=== PATIENT | male | born 1955 | race African-American/Black ===

== ENCOUNTER 2023-08-10 07:48 | Outpatient (OUT) | payer OTHER, MEDICARE, SELFPAY ==
--- NOTE | 2023-08-10 07:50 | CT_ITS ---
[address] [address] Patient Name: MAXIMINO CLARKE MRN: [id number] date: 1955 Sex: M Assigned Patient Location: CT Current Patient Location: CT Accession/Order Number: [id number] Exam Date: 08/10/2023 08:02 Report Date: 08/10/2023 16:32 At the request of: RUBI RIDLEY Procedure: CT chest high res EXAM: CT chest high res HISTORY: [facility] J67.2 COMPARISON: 11/12/2020 TECHNIQUE: Axial CT imaging was performed through the chest without intravenous contrast. Multiplanar reformats were performed. Dose reduction techniques were achieved by using automated exposure control and/or adjustment of mA and/or kV according to patient size and/or use of iterative reconstruction technique. FINDINGS: Lungs: There is bilateral centrilobular emphysema. No honeycombing, diffuse groundglass opacity, centrilobular pulmonary nodules or focal lytic changes to suggest interstitial lung disease. No suspicious pulmonary nodule. No consolidation, pneumothorax, or effusion. Airways: Normal. Mediastinum: No adenopathy. Aorta: No aneurysm. Cardiac: Normal size. No pericardial effusion. Pulmonary vasculature: Normal morphology. Bones: No acute bony abnormality. Axilla: No adenopathy. Thyroid gland: No abnormality demonstrated on provided imaging. Soft tissues: Unremarkable. Upper abdomen: Cholelithiasis. Other findings: None. CT/CT chest high res IMPRESSION: Bilateral centrilobular emphysema. No suspicious pulmonary nodule. No CT evidence of interstitial lung disease. Cholelithiasis. Electronically authenticated by: DRE RAMOS Date: 08/10/2023 16:32
[2023-08-10 08:17] LABS: Hemoglobin 13.8 g/dL (14.0-18.0)
[2023-08-10] MEDS: ALBUTEROL SULFATE 2.5 MG/3 ML VIAL NEB IH (09:12)
--- NOTE | 2023-08-10 09:15 | RT_ITS ---
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 Findings were considered accurate and reproducible. Both pre- and post-bronchodilator values utilized for spirometry. Due to software limitations, no prior studies (if performed previously) are currently available for comparison. Spirometry (based on pre-bronchodilator values): -FEV1/FVC: Low normal @ 73% -FEV1: Normal @ 92% -FVC: Normal @ 92% -There is no significant bronchodilator response. Lung volumes by plethysmography (based on pre-bronchodilator values): -RV: Normal @ 87% -TLC: Normal @ 85% Diffusion capacity: -DLCO: Very severe reduction @ 35% when corrected for Hb 13.8g/dL Flow-volume loop: -Normal shape Impressions: - Normal spirometry and lung volumes with an isolated very severe diffusion impairment. This pattern can be seen in, but not restricted to, cardiopulmonary vascular disorders and interstitial lung disease. Unable to compare with prior PFT since software was upgraded. Clinical correlation required. Electronically Signed On 08-15-2023 16:13:21 EST by Gaston Barlow
== END 2023-08-10 07:49 | disposition home or self-care (01) ==
LOC: CT 07:48
PROVIDERS: PCP Internal Medicine; Visit Provider Internal Medicine
DX: J67.2 Bird fancier's lung (principal); J43.2 Centrilobular emphysema
CPT/HCPCS: 36415; 71250; 85018; 94060; 94726; 94729

== ENCOUNTER 2023-10-16 08:50 | Outpatient (OUT) | payer OTHER, MEDICARE, SELFPAY ==
--- OUTSIDE RECORDS SUMMARY | 2023-10-16 08:53 | XMS_ITS | CCD ---
Author Name Unknown Address [address] [place] [address] [address] [place] [id number] Organization [facility] Care Team Providers [employer] Name Role Phone JOHANNA BLANDON Primary Care Physician [phone] BLANDON ., DR JOHANNA Reyes Primary Care Unavailable NILL ., DR DEVI Admitting Unavailable NILL ., DR DEVI Attending Unavailable NILL ., DR DEVI Consulting Unavailable DAVIN FRAGA Consulting Unavailable LISANDRA TUTTLE Consulting Unavailable BLANDON ., DR JOHANNA Reyes Admitting Unavailable BLANDON ., DR JOHANNA Reyes Attending Unavailable BLANDON ., DR JOHANNA Reyes Consulting Unavailable BLANDON ., DR JOHANNA Reyes Primary Care Unavailable BLANDON ., DR JOHANNA Reyes Admitting Unavailable BLANDON ., DR JOHANNA Reyes Attending Unavailable BLANDON ., DR JOHANNA Reyes Consulting Unavailable BLANDON ., DR JOHANNA Reyes Primary Care Unavailable JOHANNA BLANDON Primary Care Physician Mary Ellen Hebert Primary Care Physician Mary Ellen Hebert Attending Unavailable Jim RUTHERFORD Attending Unavailable EmileeMary Ellen gibson Attending Unavailable Mary Ellen Hebert Admitting Unavailable JOHANNA BLANDON Referring Unavailable NILLGrzegorz Attending Unavailable NILLGrzegorz Attending Unavailable NILL, Grzegorz More Attending Unavailable NILL, Grzegorz More Attending Unavailable EmileeMary Ellen Attending Unavailable EmileeMary Ellen Attending Unavailable KAT VASQUEZ Attending Unavailable Allergies Allergy Classification Reported Allergen(s) Allergy Type Date of Onset Reaction(s) Facility (1 source) No Known Medication Allergies; 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: [No Known Medication Allergies] Propensity to adverse reactions (disorder) [facility] Repository Medications Current Medications Medication Drug Class(es) Dates Sig (Normalized) Sig (Original) albuterol 0.83 mg/ml inhalation solution (1 source) beta2-Adrenergic Agonist Start: 07-14-2023 take 2.5 mg by inhalation every six hours albuterol 0.083% Inh Anne 3 mL 2.5 mg, 3 mL, NEB, q6hr, Refill(s) 0 Start Date: 07/14/23 Status: Ordered Aspirin (3 sources) Platelet Aggregation Inhibitor, Nonsteroidal Anti-inflammatory Drug Start: 04-25-2019 aspirin 81 mg, Chewed, Daily Start Date: 04/25/19 Status: Ordered 60 actuat budesonide 0.09 mg/actuat dry powder inhaler (1 source) Corticosteroid Start: 07-14-2023 Pulmicort Flexhaler 90 mcg/inh inhalation powder 1 inh, Inhalation, BID, 1 EA, Refill(s) 11, [facility] #[id number], 172.7, cm, 07/14/23 13:11:00 EDT, Height/Length Dosing, 92, kg, 07/14/23 13:11:00 EDT, Weight Dosing Start Date: 07/14/23 Status: Ordered D3 1000 intl units (25 mcg) oral tablet (1 source) Start: 07-14-2023 take 1 tablet by mouth once daily D3 1000 intl units (25 mcg) oral tablet 25 mcg = 1 tab(s), Oral, Daily, Refills(s) 0 Start Date: 07/14/23 Status: Ordered hydroCHLOROthiazide 12.5 mg / losartan potassium 100 mg oral tablet (3 sources) Thiazide Diuretic, Angiotensin 2 Receptor Gurpreet Start: 07-12-2023 End: 08-11-2023 hydrochlorothia zide-losartan 12.5 mg-100 mg oral tablet 1 tab(s), Oral, Daily for 30 day(s), 30 tab(s), Refill(s) 0, [facility] #[id number], 172.7, cm, 11/22/22 15:44:00 EST, Height/Length Dosing, 92.5, kg, 11/22/22 15:44:00 EST, Weight Dosing Start Date: 07/12/23 Stop Date: 08/11/23 Status: Ordered Start: 11-03-2022 take 1 tablet by oma th once daily hydrochlorothiazide-losartan 12.5 mg-100 mg oral tablet 1 tab(s), Oral, Daily, Refill(s) 0 Start Date: 11/03/22 Status: Ordered 24 hr metoprolol succinate 25 mg extended release oral tablet (2 sources) beta-Adrenergic Gurpreet Start: 11-03-2022 take 1 tablet by mouth once daily metoprolol 25 mg ER Tab 25 mg = 1 tab(s), Oral, Daily, Refills(s) 0 Start Date: 11/03/22 Status: Ordered pravastatin sodium 20 mg oral tablet (3 sources) HMG-CoA Reductase Inhibitor Start: 04-25-2019 take 20 mg by mouth once daily pravastatin 20 mg, Oral, Daily Start Date: 04/25/19 Status: Ordered Completed/Discontinued Medications Medication Drug Class(es) Dates Sig (Normalized) Sig (Original) predniSONE 10 mg oral tablet (1 source) Start: 07-14-2023 predniSONE 10 mg Tab 90 EA, 0 Refill(s), TAKE 1 TABLET BY MOUTH EVERY MORNING, Refills(s) 0 Start Date: 07/14/23 Status: Ordered Problems Active Problems Problem Classification Problem Date Documented Da te Episodic/Chronic Biliary tract disease (3 sources) Gallstone 04-25-2019 Episodic Chronic obstructive pulmonary disease and bronchiectasis (7 sources) Chronic obstructive lung disease; 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: [Pulmonary emphysema] Onset: 12-21-2022 11-03-2022 Chronic Coronary atherosclerosis and other heart disease (4 sources) Coronary arteriosclerosis; 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: [Atherosclerotic heart disease of [place] coronary artery without angina pectoris] Onset: 12-21-2022 04-25-2019 Chronic Coronary atherosclerosis and other heart disease (1 source) Presence of coronary angioplasty implant and graft; 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: [PRESENCE COR ANGPLSTY IMPLANT AND GRAFT] Onset: 12-21-2022 Episodic Disorders of lipid metabolism (4 sources) Hyperlipidemia; 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: [Hyperlipidemia, unspecified] Onset: 12-21-2022 04-25-2019 Chronic Diverticulosis and diverticulitis (1 source) Diverticulosis of large intestine without perforation or abscess without bleeding; 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: [DVRTCLOS LG INT NO PERF/ABSC W/O BL] Onset: 12-21-2022 Chronic Essential hypertension (4 sources) Hypertensive disorder; 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: [Essential (primary) hypertension] Onset: 12-21-2022 04-25-2019 Chronic Gastrointestinal hemorrhage (13 sources) Melena; 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: [Melena] Onset: 11-22-2022 Episodic Genitourinary symptoms and ill-defined conditions (14 sources) Ronny hematuria; 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: [Nocturia] Onset: 12-21-2022 05-13-2019 Episodic Hyperplasia of prostate (4 sources) Benign prostatic hypertrophy with outflow obstruction; 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: [Benign prostatic hyperplasia with lower urinary tract symptoms] Onset: 12-21-2022 05-04-2020 Chronic Malaise and fatigue (3 sources) Chronic fatigue syndrome 11-03-2022 Chronic Malaise and fatigue (2 sources) Other fatigue; 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: [Fatigue] Onset: 10-13-2022 07-14-2023 Episodic Noninfectious gastroenteritis (1 source) Noninfective gastroenteritis and colitis, unspecified; 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: [NONINFECTIVE GE AND COLITIS UNS] Onset: 12-21-2022 Episodic Nonspecific chest pain (2 sources) Chest pain, unspecified; 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: [Chest pain, unspecified] Onset: 10-06-2023 Episodic Other aftercare (1 source) care home (current) use of aspirin; 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: [USP CURRENT USE OF ASPIRIN] Onset: 12-21-2022 Episodic Other lower respiratory disease (3 sources) Fibrosis of lung 11-03-2022 Chronic Other nutritional; endocrine; and metabolic disorders (3 sources) Body mass index 30+ - obesity 11-22-2022 Chronic Other screening for suspected conditions (not mental disorders or infectious disease) (7 sources) Raised prostate specific antigen; 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: [Decreased testosterone level ] Onset: 02-24-2022 05-04-2020 Episodic Pneumonia (except that caused by tuberculosis or sexually transmitted disease) (4 sources) Legionella pneumonia; 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: [Legionnaires' disease] Onset: 12-21-2022 04-25-2019 Episodic Residual codes; unclassified (3 sources) Sleep apnea 04-25-2019 Chronic Residual codes; unclassified (1 source) Sleep apnea, unspecified; 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: [SLEEP APNEA UNSPECIFIED] Onset: 12-21-2022 Chronic Thyroid disorders (4 sources) Hypothyroidism, unspecified; 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: [HYPOTHYROIDISM UNSPECIFIED] Onset: 10-11-2022 Chronic Unclassified (2 sources) Patient encounter status 07-14-2023 Past or Other Problems Problem Classification Problem Date Documented Da te Episodic/Chronic Unclassified (3 sources) Drug therapy finding 11-03-2022 Results Test Name Value Interpretation Reference Range Facil ity Retail - Clinical Noteon Retail - Clinical Note [id number] #1.00TIFF Normal [facility] Consultation Noteon 09-08-20 Consultation Note [id number] #1.00TIFF Normal [facility] Ambulatory Visit Summaryon 1 10-30-2022 Ambulatory Visit Summary MAXIMINO CLARKE :1955 Visit Date:08/30/2023 Ambulatory Visit Instructions Your Diagnosis Right otitis media Cough Sore throat Headache BMI 30.0-30.9,adult Non-smoker Your Care Team Attending Physician - Mary Ellen Dela Cruz Primary Care Physician - Mary Ellen Dela Cruz This Is Your Medications List albuterol (albuterol 0.083% Inh Anne 3 mL) aspirin azithromycin (azithromycin 250 mg Tab) budesonide (Pulmicort Flexhaler 90 mcg/inh inhalation powder) cholecalciferol (D3 1000 intl units (25 mcg) oral tablet) hydrochlorothiazide- losartan (hydrochlorothiazide -losartan 12.5 mg-100 mg oral tablet) methylPREDNISolone (Medrol 4 mg Tab) pravastatin (pravastatin 20 mg Tab) Procedures Performed Colonoscopy (12/14/2022), Transrectal biopsy of prostate using ultrasound (US) guidance (04/29/2019), Cystoscopy w/UD (07/17/2017), Cystoscopy (04/09/2014), Colonoscopy (09/11/2013), Cardiac catheterization, Cardiac Stent, Fluid Removed from Lungs, Partial colectomy. Discharge Vitals Temperature (Tympanic) 36.6 ?C Heart Rate (Peripheral) 76 Respiratory Rate 18 Blood Pressure 138/86 Height 172.7 cm Height 68 in Weight 92.2 kg Weight 202.84 lb BMI 30.91 What to do next Scheduled Follow-Up Appointments Monday 1:00 PM EST With: Mary Ellen Dela Cruz Where: [facility] Normal [address] [place] [address]- \.br\ Medications\.br\ What How Much When Why Instructions\.br\ New azithromycin (azithromycin 250 mg Tab) 1 Packets By Mouth As Directed Right otitis media Cough Sore throat Headache BMI 30.0-30.9,adult Non-smoker Duration: 5 Days as directed on package labeling Pickup at [facility] #[id number]\.br\ New methylPREDNISolone (Medrol 4 mg Tab) 1 Packets By Mouth As Directed Right otitis media Cough Sore throat Headache BMI 30.0-30.9,adult Non-smoker Duration: 6 Days as directed on package labeling Pickup at [facility] #[id number]\.br\ Unchanged albuterol (albuterol 0.083% Inh Anne 3 mL) 3 Milliliter Nebulized inhalation (aerosol) Every 6 hours\.br\ Unchanged aspirin 81 Milligram Chewed Every day\.br\ Unchanged budesonide (Pulmicort Flexhaler 90 mcg/ inh inhalation powder) 1 Inhalation Inhalation 2 times a day Wellness examination Chronic obstructive pulmonary disease Fatigue Hypertension Prostate cancer screening BMI 31.0-31.9,adult Non-smoker\.br\ Unchanged cholecalciferol (D3 1000 intl units (25 mcg) oral tablet) 1 Tablets By Mouth Every day\.br\ Unchanged hydrochlorothiazide -losartan (hydrochlorothiazid e-losartan 12.5 mg-100 mg oral tablet) 1 Tablets By Mouth Every day\.br\ Unchanged pravastatin (pravastatin 20 mg Tab) 20 Milligram By Mouth Every day\.br\ Pharmacy Information\.br\ [facility] #[id number]: [address], [place] [id number] [phone]\.br\ Allergies\.br\ No Known Allergies\.br\ No Known Medication Allergies\.br\ Problems\.br\ Ongoing - Any problem that you are currently receiving treatment for.\.br\ Benign prostatic hypertrophy with outflow obstruction\.br\ BMI 31.0-31.9,adult\.br \ Chronic fatigue syndrome\.br\ Chronic obstructive pulmonary disease\.br\ Coronary artery disease\.br\ Cough\.br\ Elevated PSA\.br\ Emphysema of lung\.br\ Fatigue\.br\ Gallstones\.br\ Gross hematuria\.br\ Headache\.br\ Hematochezia\.br\ Hyperlipidemia\.br\ Hypertension\.br\ Interstitial pulmonary fibrosis\.br\ Legionnaire's disease\.br\ Low testosterone\.br\ Nocturia\.br\ Prostate cancer screening\.br\ Rectal bleeding\.br\ Right otitis media\.br\ Sleep apnea\.br\ Sore throat\.br\ Urging to urinate\.br\ Weak urinary stream\.br\ Wellness examination\.br\ Historical - Any problem that you are no longer receiving treatment for.\.br\ Anticoagulated\.br\ Patient Survey\.br\ You may receive a survey via text or e-mail asking about your office visit. Please share your experience with us by completing your survey. We appreciate your feedback and thank you for choosing us for your care.\.br\ \.br\ [facility] Ambulatory Visit Summary MAXIMINO CLARKE :1955 Visit Date:08/30/2023 Ambulatory Visit Instructions Your Diagnosis Right otitis media Cough Sore throat Headache BMI 30.0-30.9,adult Non-smoker Your Care Team Attending Physician - Mary Ellen Dela Cruz Primary Care Physician - Mary Ellen Dela Cruz This Is Your Medications List albuterol (albuterol 0.083% Inh Anne 3 mL) aspirin budesonide (Pulmicort Flexhaler 90 mcg/inh inhalation powder) cholecalciferol (D3 1000 intl units (25 mcg) oral tablet) hydrochlorothiazide- losartan (hydrochlorothiazide -losartan 12.5 mg-100 mg oral tablet) pravastatin (pravastatin 20 mg Tab) Procedures Performed Colonoscopy (12/14/2022), Transrectal biopsy of prostate using ultrasound (US) guidance (04/29/2019), Cystoscopy w/UD (07/17/2017), Cystoscopy (04/09/2014), Colonoscopy (09/11/2013), Cardiac catheterization, Cardiac Stent, Fluid Removed from Lungs, Partial colectomy. Discharge Vitals Temperature (Tympanic) 36.6 ?C Heart Rate (Peripheral) 76 Respiratory Rate 18 Blood Pressure 138/86 Height 172.7 cm Height 68 in Weight 92.2 kg Weight 202.84 lb BMI 30.91 What to do next Scheduled Follow-Up Appointments Monday 1:00 PM EST With: Mary Ellen Dela Cruz Where: [facility] Normal [address] [place] [address] [place] [address]- \.br\ Medications\.br\ What How Much When Why Instructions\.br\ Unchanged albuterol (albuterol 0.083% Inh Anne 3 mL) 3 Milliliter Nebulized inhalation (aerosol) Every 6 hours\.br\ Unchanged aspirin 81 Milligram Chewed Every day\.br\ Unchanged budesonide (Pulmicort Flexhaler 90 mcg/ inh inhalation powder) 1 Inhalation Inhalation 2 times a day Wellness examination Chronic obstructive pulmonary disease Fatigue Hypertension Prostate cancer screening BMI 31.0-31.9,adult Non-smoker\.br\ Unchanged cholecalciferol (D3 1000 intl units (25 mcg) oral tablet) 1 Tablets By Mouth Every day\.br\ Unchanged hydrochlorothiazide -losartan (hydrochlorothiazid e-losartan 12.5 mg-100 mg oral tablet) 1 Tablets By Mouth Every day\.br\ Unchanged pravastatin (pravastatin 20 mg Tab) 20 Milligram By Mouth Every day\.br\ Allergies\.br\ No Known Allergies\.br\ No Known Medication Allergies\.br\ Problems\.br\ Ongoing - Any problem that you are currently receiving treatment for.\.br\ Benign prostatic hypertrophy with outflow obstruction\.br\ BMI 31.0-31.9,adult\.br \ Chronic fatigue syndrome\.br\ Chronic obstructive pulmonary disease\.br\ Coronary artery disease\.br\ Cough\.br\ Elevated PSA\.br\ Emphysema of lung\.br\ Fatigue\.br\ Gallstones\.br\ Gross hematuria\.br\ Headache\.br\ Hematochezia\.br\ Hyperlipidemia\.br\ Hypertension\.br\ Interstitial pulmonary fibrosis\.br\ Legionnaire's disease\.br\ Low testosterone\.br\ Nocturia\.br\ Prostate cancer screening\.br\ Rectal bleeding\.br\ Right otitis media\.br\ Sleep apnea\.br\ Sore throat\.br\ Urging to urinate\.br\ Weak urinary stream\.br\ Wellness examination\.br\ Historical - Any problem that you are no longer receiving treatment for.\.br\ Anticoagulated\.br\ Patient Survey\.br\ You may receive a survey via text or e-mail asking about your office visit. Please share your experience with us by completing your survey. We appreciate your feedback and thank you for choosing us for your care.\.br\ \.br\ [facility] Medicine Office/Clini c Noteon 08-30-2023 Family Medicine Office/Clinic Note HPI Staff Maximino is a 68 year old male presenting for acute sick visit Respiratory C/O: Onset: 3 days ago Body aches: yes just on the left side of trunk, sharp intermittent Chest congestion: no Chills: no Cough: yes Sputum production: yes yellow Sore throat: yes Ear complaints: no Eye itching/watering: no Fever: no Headache: yes Nasal congestion: no Nasal discharge: no Poor appetite: no Reduced activity: no Sinus pain/pressure: yes Sneezing: yes Wheezing: no Ill contacts: yes and daughter Remedies tried: cold tablets Questions/Concerns: pain left side of body History of Present Illness pt presents today with sinus congestion, headache, sore throat left rib area is sore Review of Systems PHQ Score Initial Depression Screen Score: 0 SCORE ROS - Provider Constitutional: no fever, no chills, no sweats, no fatigue Respiratory: no shortness of breath, no cough, no orthopnea, no wheezing. Cardiovascular: no chest pain, no palpitations, no edema. Neurologic: no headache, no dizziness, no numbness, no weakness. Physical Exam Vitals & Measurements T: 36.6 ?C(Tympanic) HR: 76(Peripheral) RR: 18 BP: 138/86 SpO2: 98% HT: 68 in HT: 172.7 cm WT: 92.2 kg WT: 202.84 lb BMI: 30.91 General: alert, no acute distress ENMT: oral mucosa moist, no pharyngeal erythema or exudate Cardiovascular: regular rate and rhythm, normal peripheral perfusion Respiratory: Lungs CTA, respirations non labored Extremities: no deformity, no trauma Neurological: oriented x 4, LOC appropriate for age, CN II-XII intact, motor strength equal & normal bilaterally, speech normal Assessment/Plan 1. Right otitis media (H66.91: Otitis media, unspecified, right ear) Right OM noted on exam will send antibiotics. rtc as needed Ordered: azithromycin, = 1 packet(s), Oral, As Directed, as directed on package labeling, X 5 day(s), # 6 tab(s), Refills(s) 0, Pharmacy: [facility] #[id number], 172.7, cm, 08/30/23 16:58:00 EST, Height/Length Dosing, 92.2, kg, 08/30/23 16:58:00 EST, Weight Dosing methylPREDNISolone, = 1 packet(s), Oral, As Directed, as directed on package labeling, X 6 day(s), # 21 tab(s), Refills(s) 0, Pharmacy: [facility] #[id number], 172.7, cm, 08/30/23 16:58:00 EST, Height/Length Dosing, 92.2, kg, 08/30/23 16:58:00 EST, Weight Dosing 2. Cough (R05.9: Cough, unspecified) lung sound are tight pt coughing. pt has follow up with Dr. Barlow had CT of chest done recently Ordered: azithromycin, = 1 packet(s), Oral, As Directed, as directed on package labeling, X 5 day(s), # 6 tab(s), Refills(s) 0, Pharmacy: [facility] #[id number], 172.7, cm, 08/30/23 16:58:00 EST, Height/Length Dosing, 92.2, kg, 08/30/23 16:58:00 EST, Weight Dosing methylPREDNISolone, = 1 packet(s), Oral, As Directed, as directed on package labeling, X 6 day(s), # 21 tab(s), Refills(s) 0, Pharmacy: [facility] #[id number], 172.7, cm, 08/30/23 16:58:00 EST, Height/Length Dosing, 92.2, kg, 08/30/23 16:58:00 EST, Weight Dosing 3. Sore throat (J02.9: Acute pharyngitis, unspecified) thrat is red no exudate Ordered: azithromycin, = 1 packet(s), Oral, As Directed, as directed on package labeling, X 5 day(s), # 6 tab(s), Refills(s) 0, Pharmacy: [facility] #[id number], 172.7, cm, 08/30/23 16:58:00 EST, Height/Length Dosing, 92.2, kg, 08/30/23 16:58:00 EST, Weight Dosing methylPREDNISolone, = 1 packet(s), Oral, As Directed, as directed on package labeling, X 6 day(s), # 21 tab(s), Refills(s) 0, Pharmacy: [facility] #[id number], 172.7, cm, 08/30/23 16:58:00 EST, Height/Length Dosing, 92.2, kg, 08/30/23 16:58:00 EST, Weight Dosing 4. Headache (R51.9: Headache, unspecified) sinus tenderness Ordered: azithromycin, = 1 packet(s), Oral, As Directed, as directed on package labeling, X 5 day(s), # 6 tab(s), Refills(s) 0, Pharmacy: [facility] #[id number], 172.7, cm, 08/30/23 16:58:00 EST, Height/Length Dosing, 92.2, kg, 08/30/23 16:58:00 EST, Weight Dosing methylPREDNISolone, = 1 packet(s), Oral, As Directed, as directed on package labeling, X 6 day(s), # 21 tab(s), Refills(s) 0, Pharmacy: [facility] #[id number], 172.7, cm, 08/30/23 16:58:00 EST, Height/Length Dosing, 92.2, kg, 08/30/23 16:58:00 EST, Weight Dosing 5. BMI 30.0-30.9,adult (Z68.30: Body mass index [BMI] 30.0-30.9, adult) bmi education complete Ordered: azithromycin, = 1 packet(s), Oral, As Directed, as directed on package labeling, X 5 day(s), # 6 tab(s), Refills(s) 0, Pharmacy: [facility] #[id number], 172.7, cm, 08/30/23 16:58:00 EST, Height/Length Dosing, 92.2, kg, 08/30/23 16:58:00 EST, Weight Dosing methylPREDNISolone, = 1 packet(s), Oral, As Directed, as directed on package labeling, X 6 day(s), # 21 tab(s), Refills(s) 0, Pharmacy: [facility] #[id number], 172.7, cm, 08/30/23 16:58:00 EST, Height/Length Dosing, 92.2, kg, 08/30/23 16:58:00 EST, Weight Dosing 6. Non-smoker (Z78.9: Other specified health status) continue not smoking Ordered (more content not included)... [facility] Comment on above: Result Comment: Elec tronically Signed By: Mary Ellen Dela Cruz\.br\Date and Time Signed: 08/30/23 17:11 EST Consultation Noteon 08-03-20 Consultation Note [id number] #1.00TIFF [facility] Physician Referralon 023 Physician Referral [id number]#1.00TIFF [facility] Ambulatory Visit Summaryon 1 Ambulatory Visit Summary MAXIMINO CLARKE :1955 Visit Date:07/14/2023 Ambulatory Visit Instructions Your Diagnosis Wellness examination Chronic obstructive pulmonary disease Fatigue Hypertension Prostate cancer screening BMI 31.0-31.9,adult Non-smoker Your Care Team Attending Physician - Mary Ellen Dela Cruz Primary Care Physician - Mary Ellen Dela Cruz This Is Your Medications List albuterol (albuterol 0.083% Inh Anne 3 mL) aspirin budesonide (Pulmicort Flexhaler 90 mcg/inh inhalation powder) cholecalciferol (D3 1000 intl units (25 mcg) oral tablet) hydrochlorothiazide- losartan (hydrochlorothiazide -losartan 12.5 mg-100 mg oral tablet) pravastatin predniSONE (predniSONE 10 mg Tab) Procedures Performed Colonoscopy (12/14/2022), Transrectal biopsy of prostate using ultrasound (US) guidance (04/29/2019), Cystoscopy w/UD (07/17/2017), Cystoscopy (04/09/2014), Colonoscopy (09/11/2013), Cardiac catheterization, Cardiac Stent, Fluid Removed from Lungs, Partial colectomy. Discharge Vitals Heart Rate (Peripheral) 78 Respiratory Rate 18 Blood Pressure 162/112 Height 172.7 cm Height 68 in Weight 92.0 kg Weight 202.4 lb BMI 30.85 What to do next Scheduled Follow-Up Appointments Monday 1:00 PM EST With: Mary Ellen Dela Cruz Where: [facility] Normal [facility] Auto Diffon 07-14-2023 Basophils/100 WBC (Bld) 0.7 % Normal 0.0-2.0 [facility] Comment on above: Order Comment: Order Added by Discern Expert. Performed By: #### 2 [id number], [id number], [id number], [id number], [id number], [id number], [id number] ####[facility] [id number] [place] [address] Basophils/Leukocyte s Auto (Bld) [Pure # fraction] 0.0 E9/L Normal 0.0-0.2 [facility] Comment on above: Order Comment: Order Added by Discern Expert. Performed By: #### 2 [id number], [id number], [id number], [id number], [id number], [id number], [id number] ####[facility] [id number] [place] [address] Eosinophils/100 WBC (Bld) 1.3 % Normal 0.0-8.0 [facility] Comment on above: Order Comment: Order Added by Discern Expert. Performed By: #### 2 [id number], [id number], [id number], 7853152, [id number], [id number], [id number] ####[facility] [id number] [place] [address] Eosinophils/Leukocy funmilayo Auto (Bld) [Pure # fraction] 0.1 E9/L Normal 0.0-0.5 [facility] Comment on above: Order Comment: Order Added by Discern Expert. Performed By: #### 2 [id number], [id number], 8075539, 6546559, [id number], [id number], [id number] ####[facility] [address] [place] [address] Lymphocytes/100 WBC (Bld) 20.2 % Normal 14.0-50.0 [facility] Comment on above: Order Comment: Order Added by Discern Expert. Performed By: #### 2 527204, 2526529, 8612526, 6626309, [id number], [id number], [id number] ####[address] [place] [address] Lymphocytes/Leukocy funmilayo Auto (Bld) [Pure # fraction] 1.4 E9/L Normal 1.0-4.0 [facility] Comment on above: Order Comment: Order Added by Discern Expert. Performed By: #### 2 [id number], [id number], 9190863, 4519366, [id number], [id number], [id number] ####[address] [address] Monocytes/100 WBC (Bld) 12.3 % Normal 4.0-14.0 [facility] Comment on above: Order Comment: Order Added by Discern Expert. Performed By: #### 2 [id number], 1996578, 7994504, 7642809, [id number], [id number], [id number] ####[address] [address] Monocytes/Leukocyte s Auto (Bld) [Pure # fraction] 0.8 E9/L Normal 0.2-1.0 [facility] Comment on above: Order Comment: Order Added by Discern Expert. Performed By: #### 2 650228, 8014596, 1717303, 0781425, 46147511, 2828163, 22535446 ####[address] [place] [address] Neutrophils/100 WBC (Bld) 65.5 % Normal 36.0-75.0 [facility] Comment on above: Order Comment: Order Added by Discern Expert. Performed By: #### 2 742107, 2318652, 0934581, 6523656, 25605812, 8525445, 03471418 ####[address] [address] Neutrophils/Leukocy funmilayo Auto (Bld) [Pure # fraction] 4.5 E9/L Normal 2.0-7.5 [facility] Comment on above: Order Comment: Order Added by Discern Expert. Performed By: #### 2 646538, 0536558, 0924605, 7818573, 32466576, 3381115, 62241419 ####[address] [place] [address] CBC w/ Auto Diffon 3 Erythrocyte distribution width (RBC) [Ratio] 13.9 % Normal 10.9-14.2 [facility] Comment on above: Performed By: #### 2 855620, 1580321, 1094776, 5630969, 61871102, 9501131, 01204727 ####[address] [place] [address] Hematocrit (Bld) [Volume fraction] 47.7 % Normal 37.7-49.0 [facility] Comment on above: Performed By: #### 2 505604, 1679600, 2991608, 8091724, 65856949, 1277074, 21797889 ####[address] [place] [address] Hemoglobin (Bld) [Mass/Vol] 15.8 g/dL Normal 13.5-17.5 [facility] Comment on above: Performed By: #### 2 100352, 9297440, 1206391, 3294577, 34040877, 1608215, 72852839 ####[address] [place] [address] MCH (RBC) [Entitic mass] 30.2 pg Normal 27.0-34.0 [facility] Comment on above: Performed By: #### 2 723978, 5948125, 8423997, 0950360, 46305617, 0041080, 81390274 ####[address] [place] [address] MCHC (RBC) [Mass/Vol] 33.2 g/dL Normal 31.4-36.0 [facility] Comment on above: Performed By: #### 2 623062, 9597187, 6797997, 1973307, 79895449, 7758527, 57686798 ####[facility] [address] [place] [address] MCV (RBC) [Entitic vol] 90.9 fL Normal 80.0-100.0 [facility] Comment on above: Performed By: #### 2 574945, 0082395, 2320540, 3244779, 63428586, 8030773, 34314984 ####[facility] [address] [place] [address] Platelet mean volume (Bld) [Entitic vol] 11.2 fL High 6.4-10.8 [facility] Comment on above: Performed By: #### 2 711102, 9922010, 8038777, 6400036, 87899627, 0587321, 90105180 ####[address] [address] Platelets (Bld) [#/Vol] 105.0 E9/L Low 150.0-500.0 [facility] Comment on above: Performed By: #### 2 155681, 6630774, 2962878, 9443483, 35984890, 1382023, 12734248 ####[address] [place] [address] RBC (Bld) [#/Vol] 5.2 E12/L Normal 4.3-5.9 [facility] Comment on above: Performed By: #### 2 945464, 6254109, 6402307, 9054809, 43489530, 9897628, 76314119 ####[address] [place] [address] WBC corrected for nucl RBC Auto (Bld) [#/Vol] 6.8 E9/L Normal 4.0-11.0 [facility] Comment on above: Performed By: #### 2 395080, 9946594, 1553475, 4869454, 89893702, 1868685, 55242416 ####[facility] [address] [place] [address] CHEMISTRYOrdered By: SYSTEM SYSTEM on 07-14-2023 Albumin [Mass/Vol] 4.2 g/dL Normal 3.3 - 5.0 gm/dL [facility] Albumin/Globulin [Mass ratio] 1.2 {ratio} Normal 1.1 - 2.2 [facility] ALP [Catalytic activity/Vol] 75 [iU]/d Normal 21 - 98 Int._Unit/L [facility] ALT No additional P-5'-P [Catalytic activity/Vol] 28 [iU]/d Normal 6 - 46 Int._Unit/L [facility] Anion gap [Moles/Vol] 11 mmol/L Normal 6 - 16 mEq/L [facility] AST [Catalytic activity/Vol] 30 [iU]/d Normal 5 - 43 Int._Unit/L [facility] Bilirubin [Mass/Vol] 0.4 mg/dL Normal 0.0 - 1.1 mg/dL [facility] Calcium [Mass/Vol] 10.2 mg/dL Normal 8.9 - 11.1 mg/dL [facility] Chloride [Moles/Vol] 113 mmol/L High 101 - 111 mmol/L [facility] Cholesterol [Mass/Vol] 191 mg/dL Normal 120 - 200 mg/dL [facility] Cholesterol in HDL [Mass/Vol] 29 mg/dL Invalid Interpretation Code [facility] Comment on above: Interpretive Data: H DL > or equal to 60 mg/dL: Low cardiovascular risk HDL < 40 mg/dL : High cardiovascular risk Cholesterol in LDL [Mass/Vol] 106 mg/dL Normal <=129mg/dL [facility] Cholesterol in VLDL [Mass/Vol] 46 mg/dL High 7 - 40 mg/dL [facility] CO2 [Moles/Vol] 28 mmol/L Normal 21 - 31 mmol/L [facility] Creatinine [Mass/Vol] 1.5 mg/dL High 0.5 - 1.3 mg/dL [facility] GFR/1.73 sq M.predicted among non-blacks MDRD (S/P/Bld) [Vol rate/Area] 51 mL/min/1.73 m2 Low >=59mL/min/1.73 m2 [facility] Comment on above: Interpretive Data: C hronic kidney disease could be indicated at eGFR's of less than 60 mL/min/1.73m2. Kidney failure is indicated at less than 15 mL/min/1.73m2. Globulin (S) [Mass/Vol] 3.6 g/dL Normal 1.4 - 4.0 gm/dL [facility] Glucose [Mass/Vol] 96 mg/dL Normal 55 - 199 mg/dL [facility] Comment on above: Interpretive Data: I f this glucose result represents a fasting glucose, interpretation should refer to the following reference range: 55-99 mg/dL Potassium [Moles/Vol] 3.6 mmol/L Normal 3.5 - 5.3 mmol/L [facility] Prostate specific Ag [Mass/Vol] 1.4 ng/mL Normal 0.1 - 3.5 ng/mL [facility] Comment on above: Interpretive Data: T he concentration of PSA determined by different manufacturers can vary due to differences in assay methods and reagent specificity. Values obtained from different assay methods cannot be used interchangeably. The methodology used for this result was chemiluminescence using [employer]'s Access Hybritech PSA reagent. Protein [Mass/Vol] 7.8 g/dL Normal 6.0 - 7.8 gm/dL [facility] Sodium [Moles/Vol] 148 mmol/L High 135 - 145 mmol/L [facility] Triglyceride [Mass/Vol] 230 mg/dL High <=149mg/dL [facility] TSH Qn 0.60 m[IU]/L Normal 0.34 - 5.60 mcIU/mL [facility] Urea nitrogen [Mass/Vol] 14 mg/dL Normal 5 - 21 mg/dL [facility] Urea nitrogen/Creatinine [Mass ratio] 9 mg/mg Low 10 - 20 [facility] CMPon 07-14-2023 Albumin [Mass/Vol] 4.2 g/dL Normal 3.3-5.0 [facility] Comment on above: Performed By: #### 2 776297, 4402176, 5121572, 8778999, 22853081, 7552990, 52224897 ####[facility] [address] [place] [address] Albumin/Globulin (S) [Mass conc ratio] 1.2 Normal 1.1-2.2 [facility] Comment on above: Performed By: #### 2 959155, 7385089, 5327745, 6502344, 65685113, 5670361, 05467345 ####[facility] [address] [place] [address] ALP [Catalytic activity/Vol] 75 Int._Unit/L Normal 21-98 [facility] Comment on above: Performed By: #### 2 839108, 1648833, 7574188, 8343183, 85229361, 1042166, 04624148 ####[facility] [address] [place] [address] ALT No additional P-5'-P [Catalytic activity/Vol] 28 Int._Unit/L Normal 6-46 [facility] Comment on above: Performed By: #### 2 125813, 1566633, 9104103, 3198862, 13818526, 3014395, 81058458 ####[facility] [address] [place] [address] Anion gap [Moles/Vol] 11 mmol/L Normal 6-16 [facility] Comment on above: Performed By: #### 2 016324, 4224584, 7653315, 5916962, 32745067, 7149035, 59970373 ####[facility] [address] [place] [address] AST [Catalytic activity/Vol] 30 Int._Unit/L Normal 5-43 [facility] Comment on above: Performed By: #### 2 529255, 9453817, 5032329, 2070920, 13068210, 7600021, 15678477 ####[facility] [address] [place] [address] Bilirubin [Mass/Vol] 0.4 mg/dL Normal 0.0-1.1 [facility] Comment on above: Performed By: #### 2 928803, 5171920, 3474323, 6182467, 53120255, 3286129, 76272732 ####[facility] [address] [place] [address] Calcium [Mass/Vol] 10.2 mg/dL Normal 8.9-11.1 [facility] Comment on above: Performed By: #### 2 644182, 5332340, 0585241, 4246635, 39271441, 4068206, 63575900 ####[facility] [address] [place] [address] Chloride [Moles/Vol] 113 mmol/L High 101-111 [facility] Comment on above: Performed By: #### 2 120296, 8011650, 0250423, 6156009, 00348342, 7544826, 66690461 ####[facility] [address] [place] [address] CO2 [Moles/Vol] 28 mmol/L Normal 21-31 [facility] Comment on above: Performed By: #### 2 018946, 7544216, 1533303, 0957428, 28622819, 9990778, 43575264 ####[facility] [address] [place] [address] Creatinine [Mass/Vol] 1.5 mg/dL High 0.5-1.3 [facility] Comment on above: Performed By: #### 2 870924, 5520974, 7737871, 5842298, 67654726, 3386376, 47321707 ####[facility] [address] [place] [address] Globulin (S) [Mass/Vol] 3.6 g/dL Normal 1.4-4.0 [facility] Comment on above: Performed By: #### 2 839376, 7127796, 7381676, 1265027, 90937879, 3478956, 75283161 ####[facility] [address] [place] [address] Glucose [Mass/Vol] 96 mg/dL Normal 55-199 [facility] Comment on above: Result Comment: If t his glucose result represents a fasting glucose, interpretation should refer to the following reference range: 55-99 mg/dL Performed By: #### 2 305519, 3882569, 4595104, 7533782, 81375831, 5906821, 15784617 ####[facility] [address] [place] [address] Potassium [Moles/Vol] 3.6 mmol/L Normal 3.5-5.3 [facility] Comment on above: Performed By: #### 2 771077, 4396341, 6447441, 9476807, 05737950, 8822567, 16230739 ####[facility] [address] [place] [address] Protein [Mass/Vol] 7.8 g/dL Normal 6.0-7.8 [facility] Comment on above: Performed By: #### 2 084795, 6773134, 1892919, 0154618, 94628005, 0606105, 28696713 ####[facility] [address] [place] [address] Sodium [Moles/Vol] 148 mmol/L High 135-145 [facility] Comment on above: Performed By: #### 2 488650, 8925151, 1071700, 4691186, 51060252, 1549470, 60764117 ####[facility] [address] [place] [address] Urea nitrogen [Mass/Vol] 14 mg/dL Normal 5-21 [facility] Comment on above: Performed By: #### 2 999567, 1386240, 2224749, 6604620, 78660418, 9693941, 28310133 ####[facility] [address] [place] [address] Urea nitrogen/Creatinine [Mass ratio] 9 No Units Low 10-20 [facility] Comment on above: Performed By: #### 2 436989, 4071251, 7365835, 4782992, 59420716, 6314875, 94453466 ####[facility] [address] [place] [address] Family Medicine Office/Clini c Noteon 07-14-2023 Family Medicine Office/Clinic Note HPI Staff Maximino is a 68 year old male presenting to establish care Establish Care: History: Any previous diagnosis: BPH, HLD, HTN, Sleep apnea, Emphysema, COPD, interstitial pulmonary fibrosis, legionnaire's disease History of seeing any specialist: [employer] in [place] When was your last doctors visit: Last provider: Dr Blandon Any recent labs:10/11/22 TSH 0.231, wellness labs 01/2022 Health Maintenance UTD: Colonoscopy: 12/28/22 due in 10 years PSA: Acute: Current issues/complaints: SOB: getting more short of breath quicker, 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 c/o worsening COPD symptoms Review of Systems PHQ Score Initial Depression Screen Score: 0 ROS - Provider Constitutional: no fever, no chills, no sweats, yes fatigue Respiratory: yes shortness of breath, yes cough, no orthopnea, yes wheezing. Cardiovascular: no chest pain, no palpitations, no edema. Neurologic: no headache, no dizziness, no numbness, no weakness. Physical Exam Vitals & Measurements HR: 78(Peripheral) RR: 18 BP: 162/112 SpO2: 93% HT: 68 in HT: 172.7 cm WT: 92.0 kg WT: 202.4 lb BMI: 30.85 General: alert, no acute distress ENMT: oral mucosa moist, no pharyngeal erythema or exudate Cardiovascular: regular rate and rhythm, normal peripheral perfusion Respiratory: Lungs expiratory wheezes, respirations non labored Extremities: no deformity, no trauma Neurological: oriented x 4, LOC appropriate for age, CN II-XII intact, motor strength equal & normal bilaterally, speech normal Assessment/Plan 1. Wellness examination (Z00.00: Encounter for general adult medical examination without abnormal findings) pt presents to establish care needs wellness labs today as well. pt c/o worsening COPD symptoms. Ordered: budesonide, 1 inh, Inhalation, BID, 1 EA, Refill(s) 11, [employer] #[id number], 172.7, cm, 07/14/23 13:11:00 EDT, Height/Length Dosing, 92, kg, 07/14/23 13:11:00 EDT, Weight Dosing CBC w/ Auto Diff Comprehensive Metabolic Panel Lab Specimen Collect [id number] Lipid Panel PSA Screen, Total Thyroid Stimulating Hormone 2. Chronic obstructive pulmonary disease (J44.9: Chronic obstructive pulmonary disease, unspecified) pt has had COPD for 22 years. has not been to field service poultry technician in over 10 years. was seeing someone in [place]. Will send referral to Dr. Barlow. will order steroid inhaler today Ordered: budesonide, 1 inh, Inhalation, BID, 1 EA, Refill(s) 11, [employer] #[id number], 172.7, cm, 07/14/23 13:11:00 EDT, Height/Length Dosing, 92, kg, 07/14/23 13:11:00 EDT, Weight Dosing CBC w/ Auto Diff Comprehensive Metabolic Panel [facility] External Ambulatory Referral Lab Specimen Collect [id number] Lipid Panel PSA Screen, Total Thyroid Stimulating Hormone 3. Fatigue (R53.83: Other fatigue) will order labs. BP is elevated Ordered: budesonide, 1 inh, Inhalation, BID, 1 EA, Refill(s) 11, [employer] #[id number], 172.7, cm, 07/14/23 13:11:00 EDT, Height/Length Dosing, 92, kg, 07/14/23 13:11:00 EDT, Weight Dosing CBC w/ Auto Diff Comprehensive Metabolic Panel Lab Specimen Collect [id number] Lipid Panel PSA Screen, Total Thyroid Stimulating Hormone 4. Hypertension (I10: Essential (primary) hypertension) pt has been out of BP meds for 2 months. just started taking it again 2 days ago Ordered: budesonide, 1 inh, Inhalation, BID, 1 EA, Refill(s) 11, [employer] #42557, 172.7, cm, 07/14/23 13:11:00 EDT, Height/Length Dosing, 92, kg, 07/14/23 13:11:00 EDT, Weight Dosing CBC w/ Auto Diff Comprehensive Metabolic Panel Lab Specimen Collect [id number] Lipid Panel PSA Screen, Total Thyroid Stimulating Hormone 5. Prostate cancer screening (Z12.5: Encounter for screening for malignant neoplasm of prostate) psa ordered today Ordered: budesonide, 1 inh, Inhalation, BID, 1 EA, Refill(s) 11, [employer] #[id number], 172.7, cm, 07/14/23 13:11:00 EDT, Height/Length Dosing, 92, kg, 07/14/23 13:11:00 EDT, Weight Dosing CBC w/ Auto Diff Comprehensive Metabolic Panel Lab Specimen Collect [id number] Lipid Panel PSA Screen, Total Thyroid Stimulating Hormone 6. BMI 31.0-31.9,adult (Z68.31: Body mass index [BMI] 31.0-31.9, adult) BMI education complete Ordered: budesonide, 1 inh, Inhalation, BID, 1 EA, Refill(s) 11, [employer] #[id number], 172.7, cm, 07/14/23 13:11:00 EDT, Height/Length Dosing, 92, kg, 07/14/23 13:11:00 EDT, Weight Dosing CBC w/ Auto Diff Comprehensive Metabolic Panel Lipid Panel PSA Screen, Total Thyroid Stimulating Hormone 7. Non-smoker (Z78.9: Other specified health status) continue not smoking Ordered: budesonide, 1 inh, Inhalation, BID, 1 EA, Refill(s) 11, [employer] #[id number], 172.7, cm, 07/14/23 13:11:00 EDT, Height/Length Dosing, 92, kg, 07/14/23 13:11:00 EDT, Weight Dosing CBC w/ Auto Diff Comprehensive (more content not included)... Normal [facility] Comment on above: Result Comment: Elec tronically Signed By: Mary Ellen Dela Cruz\.dipti\Date and Time Signed: 07/14/23 14:54 EDT HEMATOLOGYOrdered By: SYSTEM SYSTEM on 07-14-2023 Basophils/100 WBC (Bld) 0.7 % Normal 0.0 - 2.0 % [facility]eAuto[facility] Basophils/Leukocyte s Auto (Bld) [Pure # fraction] 0.0 E9/L Normal 0.0 - 0.2 E9/L [facility]Auto[facility] Eosinophils/100 WBC (Bld) 1.3 % Normal 0.0 - 8.0 % [facility]Auto[facility] Eosinophils/Leukocy funmilayo Auto (Bld) [Pure # fraction] 0.1 E9/L Normal 0.0 - 0.5 E9/L [facility] Lymphocytes/100 WBC (Bld) 20.2 % Normal 14.0 - 50.0 % [facility] Lymphocytes/Leukocy funmilayo Auto (Bld) [Pure # fraction] 1.4 E9/L Normal 1.0 - 4.0 E9/L [facility]eAuto[facility] Monocytes/100 WBC (Bld) 12.3 % Normal 4.0 - 14.0 % [facility]eAuto[facility] Monocytes/Leukocyte s Auto (Bld) [Pure # fraction] 0.8 E9/L Normal 0.2 - 1.0 E9/L [facility] Neutrophils/100 WBC (Bld) 65.5 % Normal 36.0 - 75.0 % [facility] Neutrophils/Leukocy funmilayo Auto (Bld) [Pure # fraction] 4.5 E9/L Normal 2.0 - 7.5 E9/L [facility] HemeAutoSS HEMATOLOGYOrdered By: Endy Villatoro on 07-14-2023 Erythrocyte distribution width (RBC) [Ratio] 13.9 % Normal 10.9 - 14.2 % [facility] Hematocrit (Bld) [Volume fraction] 47.7 % Normal 37.7 - 49.0 % [facility] Hemoglobin (Bld) [Mass/Vol] 15.8 g/dL Normal 13.5 - 17.5 gm/dL [facility] MCH (RBC) [Entitic mass] 30.2 pg Normal 27.0 - 34.0 pg [facility]Auto[facility] MCHC (RBC) [Mass/Vol] 33.2 g/dL Normal 31.4 - 36.0 gm/dL [facility] MCV (RBC) [Entitic vol] 90.9 fL Normal 80.0 - 100.0 fL [facility]Auto[facility] Platelet mean volume (Bld) [Entitic vol] 11.2 fL High 6.4 - 10.8 fL [facility]eAuto[facility] Platelets (Bld) [#/Vol] 105.0 E9/L Low 150.0 - 500.0 E9/L [facility]Auto[facility] RBC (Bld) [#/Vol] 5.2 E12/L Normal 4.3 - 5.9 E12/L [facility] HemeAutoSS WBC corrected for nucl RBC Auto (Bld) [#/Vol] 6.8 E9/L Normal 4.0 - 11.0 E9/L [facility] HemeAutoSS Lipid Panelon 07-14-2023 Cholesterol [Mass/Vol] 191 mg/dL Normal 120-200 [facility] Comment on above: Performed By: #### 2 958490, 2346413, 9704556, 3783874, 20688271, 3768400, 29315456 ####[facility] [address] [place] [address] Cholesterol in HDL [Mass/Vol] 29 mg/dL Invalid Interpretation Code [facility] Comment on above: Result Comment: HDL > or equal to 60 mg/dL: Low cardiovascular risk HDL < 40 mg/dL : High cardiovascular risk Performed By: #### 2 113577, 5733510, 2753571, 0292492, 08381644, 0090963, 22137447 ####[facility] [address] [place] [address] Cholesterol in LDL [Mass/Vol] 106 mg/dL Normal <=129 [facility] Comment on above: Performed By: #### 2 318838, 7371836, 4752685, 4099858, 86464025, 7181166, 09422624 ####[facility] [address] [place] [address] Cholesterol in VLDL [Mass/Vol] 46 mg/dL High 7-40 [facility] Comment on above: Performed By: #### 2 738509, 1689058, 7521307, 4551596, 07654995, 0692988, 68865094 ####[facility] [address] [place] [address] Triglyceride [Mass/Vol] 230 mg/dL High <=149 [facility] Comment on above: Performed By: #### 2 672582, 3390486, 0183575, 8205579, 74321541, 3457292, 28860969 ####[facility] [address] [place] [address] PSA Screen, Totalon 07-14-20 23 Prostate specific Ag [Mass/Vol] 1.4 ng/mL Normal 0.1-3.5 [facility] Comment on above: Result Comment: The concentration of PSA determined by different manufacturers can vary due to differences in assay methods and reagent specificity. Values obtained from different assay methods cannot be used interchangeably. The methodology used for this result was chemiluminescence using [employer]'s [employer] Hybritech PSA reagent. Performed By: #### 2 064668, 0491063, 5406732, 0050594, 81383958, 5783186, 82283119 ####[facility] [address] [place] [address] TSHon 07-14-2023 TSH Qn 0.60 m[IU]/L Normal 0.34-5.60 [facility] Comment on above: Performed By: #### 2 422209, 5956533, 9375229, 5319363, 52038336, 2013269, 57090811 ####[facility] [address] [place] [address] eGFRon 07-14-2023 GFR/1.73 sq M.predicted among non-blacks MDRD (S/P/Bld) [Vol rate/Area] 51 mL/min/1.73 m2 Low >=59 [facility] Comment on above: Order Comment: Order added by Discern Expert. Result Comment: E [employer] Marketing Analyst elida kidney disease could be indicated at eGFR's of less than 60 mL/min/1.73m2. Kidney failure is indicated at less than 15 mL/min/1.73m2. Performed By: #### 2 480603, 3631930, 7582343, 3188266, 01643744, 9595021, 61736370 ####[facility] [address] [place] [address] Lab Reportson 07-12-2023 Lab Reports [id number] 1#1.00TIFF Normal [facility] Formson 02-22-2023 Forms [id number] #1.00CD:127 Normal [facility] Retail - Clinical Noteon Retail - Clinical Note [id number] #1.00CD:127 Normal [facility] Ambulatory Visit Summaryon 0 12-28-2022 Ambulatory Visit Summary MAXIMINO CLARKE :1955 Visit Date:12/28/2022 Ambulatory Visit Instructions Your Care Team Attending Physician - DANNA DHALIWAL, Grzegorz More Primary Care Physician - AMIRA DHALIWAL, JOHANNA Reyes This Is Your Medications List Contact prescribing physician if questions or concerns aspirin hydrochlorothiazide- losartan (hydrochlorothiazide -losartan 12.5 mg-100 mg oral tablet) metoprolol (metoprolol 25 mg ER Tab) pravastatin Procedures Performed Colonoscopy (12/14/2022), Transrectal biopsy of prostate using ultrasound (US) guidance (04/29/2019), Cystoscopy w/UD (07/17/2017), Cystoscopy (04/09/2014), Colonoscopy (09/11/2013), Cardiac catheterization, Cardiac Stent, Fluid Removed from Lungs, Partial colectomy. Medications What How Much When Instructions Unchanged aspirin 81 Milligram Chewed Every day Contact prescribing physician if questions or concerns Unchanged hydrochlorothiazide- losartan (hydrochlorothiazide -losartan 12.5 mg-100 mg oral tablet) 1 Tablets By Mouth Every day Contact prescribing physician if questions or concerns Unchanged metoprolol (metoprolol 25 mg ER Tab) 1 Tablets By Mouth Every day Contact prescribing physician if questions or concerns Unchanged pravastatin 20 Milligram By Mouth Every day Contact prescribing physician if questions or concerns Allergies No Known Allergies No Known Medication Allergies Problems Ongoing - Any problem that you are currently receiving treatment for. Benign prostatic hypertrophy with outflow obstruction BMI 31.0-31.9,adult Chronic fatigue syndrome Chronic obstructive pulmonary disease Coronary artery disease Elevated PSA Emphysema of lung Gallstones Gross hematuria Hematochezia Hyperlipidemia Hypertension Interstitial pulmonary fibrosis Legionnaire's disease Low testosterone Nocturia Rectal bleeding Sleep apnea Urging to urinate Weak urinary stream Historical - Any problem that you are no longer receiving treatment for. Anticoagulated Normal [facility] General Surgery Office/Clini c Noteon 12-28-2022 General Surgery Office/Clinic Note Chief Complaint colonoscopy follow up HPI Staff 14 day post operative follow up post colonoscopy with ileocecal valve biopsy. Continues to experience intermittent rectal bleeding. History of Present Illness f/u colonoscopy for intermittent rectal bleeding after straining for bms, still with same symptoms; colonoscopy with prominent rectal veins, no bleeding at time of scope; small area of inflammation at ileocecal valve; no polyps. Review of Systems ROS - Provider Constitutional: no fever, no sweats, no weight loss. Eyes: no glasses, no blurred vision, no visual loss. ENMT: no dentures, no hoarseness, no swallowing difficulties, no hearing loss, no ear infection(s), no nose bleeds. Cardiovascular: normal blood pressure, no chest pain, regular heartbeat, no heart murmur. Respiratory: no shortness of breath, no cough, no asthma, no wheezing. Gastrointestinal: no nausea, no vomiting, no diarrhea, no constipation, no blood in stool, no change in bowel habits, no abdominal pain, no hepatitis. Genitourinary: no kidney stones, no urine infection, no dysuria. Musculoskeletal: no pain, no weakness. Skin: no changing moles, no rash, no skin lumps. Neurologic: no seizures, no epilepsy, no headache. Psychiatric: no emotional or psychiatric problem. Heme/Lymph: no bleeding problems, no anemia, no blood clots, no transfusions. Allergy/Immunologic: no swollen lymph nodes/glands, no IV drug abuse. Other: Additional ROS info: Except as noted in the above Review of Systems and in the History of Present Illness, all other systems have been reviewed and are negative or noncontributory. Physical Exam !! Assessment/Plan 1. Rectal bleeding (K62.5: Hemorrhage of anus and rectum) likely due to irritated rectal veins; recommend high fiber diet and daily fiber supplement; f/u screening colonoscopy in 10 years; call with problems/questions. Follow-up No qualifying data available Problem List/Past Medical History Ongoing Benign prostatic hypertrophy with outflow obstruction BMI 31.0-31.9,adult Chronic fatigue syndrome Chronic obstructive pulmonary disease Coronary artery disease Elevated PSA Emphysema of lung Gallstones Gross hematuria Hematochezia Hyperlipidemia Hypertension Interstitial pulmonary fibrosis Legionnaire's disease Low testosterone Nocturia Rectal bleeding Sleep apnea Urging to urinate Weak urinary stream Historical Anticoagulated Procedure/Surgical History Colonoscopy (12/14/2022), Transrectal biopsy of prostate using ultrasound (US) guidance (04/29/2019), Cystoscopy w/UD (07/17/2017), Cystoscopy (04/09/2014), Colonoscopy (09/11/2013), Cardiac catheterization, Cardiac Stent, Fluid Removed from Lungs, Partial colectomy. Medications aspirin, 81 mg, Chewed, Daily hydrochlorothiazide- losartan 12.5 mg-100 mg oral tablet, 1 tab(s), Oral, Daily metoprolol 25 mg ER Tab, 25 mg= 1 tab(s), Oral, Daily pravastatin, 20 mg, Oral, Daily Allergies No Known Allergies No Known Medication Allergies Social History Alcohol - Denies Alcohol Use, 04/25/2019 Substance Abuse - Denies Substance Abuse, 11/22/2022 Tobacco Never (less than 100 in lifetime) Tobacco Use:. Never Smokeless Tobacco Use:., 11/22/2022 Family History Anxiety: Mother. Heart disease: Sister. Hypertension: Mother. Pancreatic cancer: Mother. Immunizations Vaccine Date Status influenza virus vaccine, inactivated 06/09/2022 Recorded SARS-CoV-2 (COVID-19) mRNA BNT-162b2 vax 09/21/2021 Recorded SARS-CoV-2 (COVID-19) mRNA BNT-162b2 vax 01/05/2021 Recorded SARS-CoV-2 (COVID-19) mRNA BNT-162b2 vax 12/14/2020 Recorded Normal [facility] Comment on above: Result Comment: Elec tronically Signed By: DANNA DHALIWAL, Grzegorz [place]\Date and Time Signed: 12/28/22 16:27 EDT Reminderson 12-28-2022 Reminders - From: Aileen Finnegan LPN To: [facility] - Clinical; Sent: 12/28/2022 14:58:48 EDT Show up: 11/16/2032 07:00:00 EST Subject: colonoscopy recall Due Date/Time: 12/14/2032 07:00:00 EDT Reminder/Recall Patient is due for screening colonoscopy 12/14/2032. Normal [facility] Pathology Noteon 03-26-2023 Pathology Note [id number]# 1.00CD:127 Normal [facility] Outside Colonoscopyon 2022 Outside Colonoscopy [id number] #1.00CD:127 Normal [facility] Facesheeton 11-24-2022 Facesheet [id number] #1.00CD:127 Normal [facility] Consent for Procedure/Surger yon 11-23-2022 Consent for Procedure/Surgery [id number] #1.00CD:127 Normal [facility] Ambulatory Visit Summaryon 0 11-22-2022 Ambulatory Visit Summary MAXIMINO CLARKE :1955 Visit Date:11/22/2022 Ambulatory Visit Instructions Your Care Team Attending Physician - DANNA DHALIWAL, Grzegorz More Primary Care Physician - AMIRA DHALIWAL, JOHANNA Reyes This Is Your Medications List aspirin hydrochlorothiazide- losartan (hydrochlorothiazide -losartan 12.5 mg-100 mg oral tablet) metoprolol (metoprolol 25 mg ER Tab) pravastatin Procedures Performed Transrectal biopsy of prostate using ultrasound (US) guidance (04/29/2019), Cystoscopy w/UD (07/17/2017), Cystoscopy (04/09/2014), Colonoscopy (09/11/2013), Cardiac catheterization, Cardiac Stent, Fluid Removed from Lungs, Partial colectomy. Discharge Vitals Heart Rate (Peripheral) 68 Respiratory Rate 16 Blood Pressure 126/90 Height 172.72 cm Height 68 in Weight 92.5 kg Weight 203.5 lb BMI 31.01 Medications What How Much When Instructions Unchanged aspirin 81 Milligram Chewed Every day Unchanged hydrochlorothiazide- losartan (hydrochlorothiazide -losartan 12.5 mg-100 mg oral tablet) 1 Tablets By Mouth Every day Unchanged metoprolol (metoprolol 25 mg ER Tab) 1 Tablets By Mouth Every day Unchanged pravastatin 20 Milligram By Mouth Every day Allergies No Known Allergies No Known Medication Allergies Problems Ongoing - Any problem that you are currently receiving treatment for. Benign prostatic hypertrophy with outflow obstruction BMI 31.0-31.9,adult Chronic fatigue syndrome Chronic obstructive pulmonary disease Coronary artery disease Elevated PSA Emphysema of lung Gallstones Gross hematuria Hyperlipidemia Hypertension Interstitial pulmonary fibrosis Legionnaire's disease Low testosterone Nocturia Sleep apnea Urging to urinate Weak urinary stream Historical - Any problem that you are no longer receiving treatment for. Anticoagulated Normal [facility] Physician Referralon 023 Physician Referral [id number] #1.00CD:127 Normal [facility] CBC AUTO DIFFon 10-11-2022 BASO # 0.0 103/ul Normal 0.0-0.1 [facility] Comment on above: Performed By: #### C BC #### [facility] [address] [place] [address] Dr. Anup Paez Basophils/100 WBC (Bld) 0.4 % Normal 0.2-2.0 [facility] Comment on above: Performed By: #### C BC #### [facility] [address] [place] [address] Dr. Anup Paez EO # 0.0 103/ul Normal 0.0-0.7 [facility] Comment on above: Performed By: #### C BC #### [facility] [address] [place] [address] Dr. Anup Paez Eosinophils/100 WBC (Bld) 0.1 % Critically low 0.9-7.0 [facility] Comment on above: Performed By: #### C BC #### [facility] [address] [place] [address] Dr. Anup Paez Erythrocyte distribution width (RBC) [Ratio] 13.2 % Normal 11.0-15.0 [facility] Comment on above: Performed By: #### C BC #### [facility] [address] [place] [address] Dr. Anup Paez Hematocrit (Bld) [Volume fraction] 43.2 % Normal 42.0-54.0 [facility] Comment on above: Performed By: #### C BC #### [facility] [address] [place] [address] Dr. Anup Paez Hemoglobin (Bld) [Mass/Vol] 14.7 g/dL Normal 14.0-18.0 [facility] Comment on above: Performed By: #### C BC #### [facility] [address] [place] [address] Dr. Anup Paez IG # 0.03 10e3/ul Normal 0.00-0.03 [facility] Comment on above: Performed By: #### C BC #### [facility] [address] [place] [address] Dr. Anup Paez IG % 0.4 % Normal 0.0-0.5 [facility] Comment on above: Performed By: #### C BC #### [facility] [address] [place] [address] Dr. Anup Paez LYMPH # 1.2 103/ul Normal 1.2-3.8 [facility] Comment on above: Performed By: #### C BC #### [facility] [address] [place] [address] Dr. Anup Paez Lymphocytes/100 WBC (Bld) 14.8 % Critically low 20.5-60.0 [facility] Comment on above: Performed By: #### C BC #### [facility] [address] [place] [address] Dr. Anup Paez MANUAL DIFF REQ NO Normal [facility] Comment on above: Performed By: #### C BC #### [facility] [address] [place] [address] Dr. Anup Paez MCH (RBC) [Entitic mass] 30.3 pg Normal 25.9-34.0 [facility] Comment on above: Performed By: #### C BC #### [facility] [address] [place] [address] Dr. Anup Paez MCHC (RBC) [Mass/Vol] 34.0 g/dL Normal 29.9-35.2 [facility] Comment on above: Performed By: #### C BC #### [facility] [address] [place] [address] Dr. Anup Paez MCV (RBC) [Entitic vol] 89.1 fL Normal 80.0-94.0 [facility] Comment on above: Performed By: #### C BC #### [facility] [address] [place] [address] Dr. Anup Paez MONO # 0.5 103/ul Normal 0.3-0.8 [facility] Comment on above: Performed By: #### C BC #### [facility] [address] [place] [address] Dr. Anup Paez Monocytes/100 WBC (Bld) 5.5 % Normal 1.7-12.0 [facility] Comment on above: Performed By: #### C BC #### [facility] [address] [place] [address] Dr. Anup Paez NEUT # 6.6 103/ul Critically high 1.4-6.5 [facility] Comment on above: Performed By: #### C BC #### [facility] [address] [place] [address] Dr. Anup Paez Neutrophils/100 WBC (Bld) 78.8 % Critically high 43.0-75.0 [facility] Comment on above: Performed By: #### C BC #### [facility] [address] [place] [address] Dr. Anup Paez Platelet mean volume (Bld) [Entitic vol] 11.9 fL Normal 9.5-13.5 [facility] Comment on above: Performed By: #### C BC #### [facility] [address] [place] [address] Dr. Anup Paez PLT 140 103/ul Critically low 150-450 [facility] Comment on above: Performed By: #### C BC #### [facility] [address] [place] [address] Dr. Anup Paez RBC 4.85 106/ul Normal 4.70-6.10 [facility] Comment on above: Performed By: #### C BC #### [facility] [address] [place] [address] Dr. Anup Paez WBC 8.3 103/ul Normal 4.0-11.0 [facility] Comment on above: Performed By: #### C BC #### [facility] [address] [place] [address] Dr. Anup Paez FREE T3on 10-11-2022 FREE T3 2.36 pg/mlL Normal 2.18-3.98 [facility] Comment on above: Performed By: #### F T3 #### [facility] [address] [place] [address] Dr. Anup Paez FREE T4on 10-11-2022 Free T4 [Mass/Vol] 0.97 ng/dL Normal 0.76-1.46 [facility] Comment on above: Performed By: #### F T4 #### [facility] [address] [place] [address] Dr. Anup Paez TSHon 10-11-2022 TSH 0.231 uIU/mL Critically low 0.358-3.740 [facility] Comment on above: Performed By: #### T SH #### [facility] [address] [place] [address] Dr. Anup Paez CBC AUTO DIFFon 02-19-2022 BASO # 0.1 103/ul Normal 0.0-0.1 [facility] Comment on above: Performed By: #### C BC #### [facility] [address] [place] [address] Dr. Anup Paez Basophils/100 WBC (Bld) 1.1 % Normal 0.2-2.0 [facility] Comment on above: Performed By: #### C BC #### [facility] [address] [place] [address] Dr. Anup Paez EO # 0.2 103/ul Normal 0.0-0.7 [facility] Comment on above: Performed By: #### C BC #### [facility] [address] [place] [address] Dr. Anup Paez Eosinophils/100 WBC (Bld) 4.4 % Normal 0.9-7.0 [facility] Comment on above: Performed By: #### C BC #### [facility] [address] [place] [address] Dr. Anup Paez Erythrocyte distribution width (RBC) [Ratio] 12.9 % Normal 11.0-15.0 [facility] Comment on above: Performed By: #### C BC #### [facility] [address] [place] [address] Dr. Anup Paez Hematocrit (Bld) [Volume fraction] 44.4 % Normal 42.0-54.0 [facility] Comment on above: Performed By: #### C BC #### [facility] [address] [place] [address] Dr. Anup Paez Hemoglobin (Bld) [Mass/Vol] 14.4 g/dL Normal 14.0-18.0 [facility] Comment on above: Performed By: #### C BC #### [facility] [address] [place] [address] Dr. Anup Paez IG # 0.01 10e3/ul Normal 0.00-0.03 [facility] Comment on above: Performed By: #### C BC #### [facility] [address] [place] [address] Dr. Anup Paez IG % 0.2 % Normal 0.0-0.5 [facility] Comment on above: Performed By: #### C BC #### [facility] [address] [place] [address] Dr. Anup Paez LYMPH # 1.6 103/ul Normal 1.2-3.8 [facility] Comment on above: Performed By: #### C BC #### [facility] [address] [place] [address] Dr. Anup Paez Lymphocytes/100 WBC (Bld) 35.8 % Normal 20.5-60.0 [facility] Comment on above: Performed By: #### C BC #### [facility] [address] [place] [address] Dr. Anup Paez MANUAL DIFF REQ NO Normal [facility] Comment on above: Performed By: #### C BC #### [facility] [address] [place] [address] Dr. Anup Paez MCH (RBC) [Entitic mass] 30.1 pg Normal 25.9-34.0 [facility] Comment on above: Performed By: #### C BC #### [facility] [address] [address] [address] Anup Paez MCHC (RBC) [Mass/Vol] 32.4 g/dL Normal 29.9-35.2 [facility] Comment on above: Performed By: #### C BC #### [facility] [address] [address] [address] Anup Paez MCV (RBC) [Entitic vol] 92.7 fL Normal 80.0-94.0 [facility] Comment on above: Performed By: #### C BC #### [facility] [address] [place] [address] Dr. Anup Paez MONO # 0.5 103/ul Normal 0.3-0.8 [facility] Comment on above: Performed By: #### C BC #### [facility] [address] [place] [address] Dr. Anup Paez Monocytes/100 WBC (Bld) 11.6 % Normal 1.7-12.0 [facility] Comment on above: Performed By: #### C BC #### [facility] [address] [place] [address] Dr. Anup Paez NEUT # 2.1 103/ul Normal 1.4-6.5 [facility] Comment on above: Performed By: #### C BC #### [facility] [address] [place] [address] Dr. Anup Paez Neutrophils/100 WBC (Bld) 46.9 % Normal 43.0-75.0 [facility] Comment on above: Performed By: #### C BC #### [facility] [address] [place] [address] Dr. Anup Paez Platelet mean volume (Bld) [Entitic vol] 12.0 fL Normal 9.5-13.5 [facility] Comment on above: Performed By: #### C BC #### [facility] [address] [place] [address] Dr. Anup Paez PLT 107 103/ul Critically low 150-450 [facility] Comment on above: Performed By: #### C BC #### [facility] [address] [address] [address] Anup Paez RBC 4.79 106/ul Normal 4.70-6.10 [facility] Comment on above: Performed By: #### C BC #### [facility] [address] [place] [address] Dr. Anup Paez WBC 4.6 103/ul Normal 4.0-11.0 [facility] Comment on above: Performed By: #### C BC #### [facility] [address] [place] [address] Dr. Anup Paez LIPID PROFILEon 02-19-2022 CHOL-HDL RATIO NORM SEE BELOW Normal [facility] Comment on above: Result Comment: 3.3 - 4.4 LOW RISK 4.4 - 7.1 AVERAGE RISK 7.1 - 11.0 MODERATE RISK >11.0 HIGH RISK Performed By: #### C MP, LIPID #### [facility] [address] [place] [address] Dr. Anup Paez Cholesterol [Mass/Vol] 120 mg/dL Normal <=200 [facility] Comment on above: Performed By: #### C MP, LIPID #### [facility] [address] [place] [address] Dr. Anup Paez Cholesterol in HDL [Mass/Vol] 33 mg/dL Critically low 40-60 [facility] Comment on above: Performed By: #### C MP, LIPID #### [facility] [address] [place] [address] Dr. Anup Paez Cholesterol in LDL [Mass/Vol] 68.2 mg/dL Normal [facility] Comment on above: Performed By: #### C MP, LIPID #### [facility] [address] [place] [address] Dr. Anup Paez Cholesterol.total/C holesterol in HDL [Mass ratio] 3.6 {ratio} Normal [facility] Comment on above: Performed By: #### C MP, LIPID #### [facility] [address] [place] [address] Dr. Anup Paez HDL NORMAL > or = 60 mg/dl - LOW CARDIOVASCULAR RISK <40 mg/dl - HIGH CARDIOVASCULAR RISK Normal [facility] Comment on above: Performed By: #### C MP, LIPID #### [facility] [address] [address] [address] Anup Paez LDL CALC NORMAL SEE BELOW Normal [facility] Comment on above: Result Comment: <100 mg/dl OPTIMAL 100 - 129 mg/dl NEAR OR ABOVE OPTIMAL 130 - 159 mg/dl BORDERLINE HIGH 160 - 189 mg/dl HIGH >190 mg/dl VERY HIGH Performed By: #### C MP, LIPID #### [facility] [address] [place] [address] Dr. Anup Paez Triglyceride [Mass/Vol] 94 mg/dL Normal <=150 [facility] Comment on above: Performed By: #### C MP, LIPID #### [facility] [address] [place] [address] Dr. Anup Paez VLDL CALC 18.8 mg/dL Normal [facility] Comment on above: Performed By: #### C MP, LIPID #### [facility] [address] [place] [address] Dr. Anup Paez PROF 14(COMP METB)on 022 Albumin [Mass/Vol] 3.6 g/dL Normal 3.4-5.0 [facility] Comment on above: Performed By: #### C MP, LIPID #### [facility] [address] [place] [address] Dr. Anup Paez Albumin/Globulin [Mass ratio] 1.0 {ratio} Normal [facility] Comment on above: Performed By: #### C MP, LIPID #### [facility] [address] [place] [address] Dr. Anup Paez ALP [Catalytic activity/Vol] 97 U/L Normal 46-116 [facility] Comment on above: Performed By: #### C MP, LIPID #### [facility] [address] [place] [address] Dr. Anup Paez ALT [Catalytic activity/Vol] 33 U/L Normal 16-63 [facility] Comment on above: Performed By: #### C MP, LIPID #### [facility] [address] [address] [address] Anup Paez Anion gap [Moles/Vol] 11.5 mmol/L Normal [facility] Comment on above: Performed By: #### C MP, LIPID #### [facility] [address] [address] [address] Anup Paez AST [Catalytic activity/Vol] 21 U/L Normal 15-37 [facility] Comment on above: Performed By: #### C MP, LIPID #### [facility] [address] [address] [address] Anup Paez Bilirubin [Mass/Vol] 0.4 mg/dL Normal 0.2-1.0 [facility] Comment on above: Performed By: #### C MP, LIPID #### [facility] [address] [place] [address] Dr. Anup Paez Calcium [Mass/Vol] 8.5 mg/dL Normal 8.5-10.1 [facility] Comment on above: Performed By: #### C MP, LIPID #### [facility] [address] [place] [address] Dr. Anup Paez Chloride [Moles/Vol] 106 mmol/L Normal 98-107 [facility] Comment on above: Performed By: #### C MP, LIPID #### [facility] [address] [place] [address] Dr. Anup Paez CO2 [Moles/Vol] 26.3 mmol/L Normal 21.0-32.0 [facility] Comment on above: Performed By: #### C MP, LIPID #### [facility] [address] [place] [address] Dr. Anup Paez Creatinine [Mass/Vol] 1.26 mg/dL Normal 0.70-1.30 [facility] Comment on above: Performed By: #### C MP, LIPID #### [facility] [address] [place] [address] Dr. Anup Paez EGFR-AF GUYANESE >60 Normal >=60 [facility] Comment on above: Performed By: #### C MP, LIPID #### [facility] [address] [address] [address] Anup Paez EGFR-NON AF GUYANESE 57 mL/min/1.73m2 Critically low >=60 [facility] Comment on above: Performed By: #### C MP, LIPID #### [facility] [address] [address] [address] Anup Paez Globulin (S) [Mass/Vol] 3.6 g/dL Normal [facility] Comment on above: Performed By: #### C MP, LIPID #### [facility] [address] [address] [address] Anup Paez Glucose [Mass/Vol] 95 mg/dL Normal 74-106 [facility] Comment on above: Performed By: #### C MP, LIPID #### [facility] [address] [address] [address] Anup Paez Potassium [Moles/Vol] 3.8 mmol/L Normal 3.5-5.1 [facility] Comment on above: Performed By: #### C MP, LIPID #### [facility] [address] [address] [address] Anup Paez Protein [Mass/Vol] 7.2 g/dL Normal 6.4-8.2 [facility] Comment on above: Performed By: #### C MP, LIPID #### [facility] [address] [address] [address] Anup Paez Sodium [Moles/Vol] 140 mmol/L Normal 136-145 [facility] Comment on above: Performed By: #### C MP, LIPID #### [facility] [address] [address] [address] Anup Paez Urea nitrogen [Mass/Vol] 16.0 mg/dL Normal 7.0-18.0 [facility] Comment on above: Performed By: #### C MP, LIPID #### [facility] [address] [address] [address] Anup Paez Urea nitrogen/Creatinine [Mass ratio] 12.7 mg/mg Normal [facility] Comment on above: Performed By: #### C MP, LIPID #### [facility] [address] [address] [address] Anup Paez PSA Total (Not a Screen)on 0 04-01-2021 PSA Total (Not a Screen) 0.620 ng/mL Normal 0.000-4.000 [facility] Comment on above: Result Comment: PERF ORMED BY: [place] [address] PATHOLOGIST DIRECTOR OF CUSTOMER SERVICE MARITZA MONTANO M.D. Performed By: #### P SATOTAL #### [address] XR ankle LT min 3V*on 2020 XR ankle LT min 3V* [facility] [place] [address] [place] [address] XRay Report Signed Patient: Maximino Clarke MR#: [id number] : 1955 Acct:[id number] Age/Sex: 65 / M ADM Date: 01/11/21 Loc: XDUC Room: Type: [facility] Attending Dr: Ailin PARRA Ordering Provider: AILIN TURNER Date of Service: 01/11/21 XR/XR ankle LT min 3V*: Injury of left ankle, initial encounter Copies to: AILIN TURNER LEFT ANKLE - 3 views CLINICAL DATA: Twisting injury of the left ankle with medial pain, worse with pressure. COMPARISON: None AP, lateral and oblique views were obtained. There is no evidence of fracture or dislocation. The talar dome is intact. Tiny plantar calcaneal spur is seen. There are no significant soft tissue abnormalities. XR/XR ankle LT min 3V* IMPRESSION: NO ACUTE BONY INJURY. Impression dictated by: Dinora Brink M.D.01/11/2021 12:35 PM Dictation Location: [place] [address] Transcribed By: [facility] 01/11/21 1235 Dictated By: Dinora Brink MD 01/11/21 1234 Signed By: 01/11/21 1235 Normal [facility] Pulmonary Functionon 020 Pulmonary Function MR #: [id number] [facility] PT. Name: Maximino Clarke Date: 08/14/2020 Date of : 1955 Patient Type: D Pulmonary Function INTERPRETATION CLINICAL INDICATION: The patient is 65-year-old male with BMI of 29.5. Indication is interstitial pulmonary disease. Patient has dyspnea when walking on hills and stairs, no cough, frequent wheezing, patient never smoked. Patient has obstructive sleep apnea on CPAP with 4 L/min O2 at night. Patient is on 2 L/min during the day. LUNG MECHANICS: FEV1 is normal at 87% of predicted, FVC is normal at 102% of predicted. FEV1/FVC is mildly reduced to 68%. Appears to be obstructive pattern. The response after bronchodilators does not meet ATS criteria for positivity. MVV is normal. Flow volume loop shows obstructive pattern. LUNG VOLUMES: (NITROGEN WASHOUT TECHNIQUE) Not ordered. LUNG VOLUMES: (BODY BOX TECHNIQUE) Residual volume is 80% and total lung capacity is 99%. LUNG DIFFUSION: Moderately to severely reduced. Uncorrected DLCO is 42%. Corrected DLCO is 48%. DLCO corrected to alveolar volume is 50%. ARTERIAL BLOOD GASES: PO2 is 88 and SaO2 is 95% on room air. Oxygenation is adequate. AA gradient is in the upper normal range for the patient age. Patient has Acute Respiratory Alkalosis at the Time of the ABG, Could Be Secondary to acute hyperventilation CLINICAL IMPRESSION: Nonspecific study, spirometry shows mild obstructive pattern, there is no hyperinflation or gas trapping according to lung volumes, diffusion capacity is moderately to severely reduced out of proportion to other studies that raises concern for pulmonary vascular disease like pulmonary hypertension. Electronically Signed by: Scott Scruggs MD 08/23/2020 06:04 P Scott Scruggs MD [facility] Date Dict: 08/23/2020/05:28 P/Scott Scruggs MD Date Trans: 08/23/2020 05:28 P/ DIMITRIOS_JN:[id number] cc: Johanna Blandon M.D. [address] [place] [phone] Normal [facility] ARTERIAL BLOOD GAS W/COOXon 08-14-2020 BASE EXCESS 0 mmol/L Normal -2-3 [facility] Comment on above: Performed By: #### 4 0055 #### [facility] [address] [place] [address], [facility] COHB 1.2 % Normal 0.0-1.5 [facility] Comment on above: Performed By: #### 4 0055 #### [facility] [address] [place] [address], [facility] DELIVERY SYSTEMS ROOM AIR Normal [facility] Comment on above: Performed By: #### 4 0055 #### [facility] [address] [place] [address], [facility] FIO2 0 % Normal [facility] Comment on above: Performed By: #### 4 0055 #### [facility] [address] [place] [address], [facility] HCO3 (Bld) [Moles/Vol] 23 mmol/L Normal 21-28 [facility] Comment on above: Performed By: #### 4 0055 #### [facility] [address] [place] [address], [facility] METHB 1.0 % Normal 0.0-1.5 [facility] Comment on above: Performed By: #### 4 0055 #### [facility] [address] [place] [address], [facility] Oxygen (Bld) [Partial pressure] 88 mm[Hg] Normal 83-108 [facility] Comment on above: Performed By: #### 4 0055 #### [facility] [address] [place] [address], [facility] Oxygen saturation in Blood 95.5 % Normal 94.0-97.0 [facility] Comment on above: Performed By: #### 4 0055 #### [facility] [address] PCO2 32 mmHg Low 35-45 [facility] Comment on above: Performed By: #### 4 0055 #### [facility] [address] pH (Bld) 7.46 [pH] High 7.35-7.45 [facility] Comment on above: Performed By: #### 4 0055 #### [facility] [address] THB 12.0 g/dL Normal 12.0-16.3 [facility] Comment on above: Performed By: #### 4 0055 #### [facility] [address] Pulmonary Functionon 05-23-2 020 Pulmonary Function MR #: [id number] [facility] PT. Name: Maximino Clarke Date: 05/11/2020 Date of : 1955 Patient Type: D Pulmonary Function INTERPRETATION CLINICAL INDICATION: Patient is 65-year-old male with BMI of 28.8. Has diagnosis of interstitial pulmonary disease. He has dyspnea on exertion, no cough, rare wheezing. Patient never smoked. LUNG MECHANICS: FEV1 is within normal at 2.56 L which is 91%. FVC is 3.8 L which is 108%. FEV1/FVC ratio is decreased to 67%. There is some response to bronchodilators however does not meet ATS criteria. MVV is within normal limit. Flow volume loop is suggestive of obstructive pattern, expiratory loop is within normal. LUNG VOLUMES: (NITROGEN WASHOUT TECHNIQUE) Not ordered. LUNG VOLUMES: (BODY BOX TECHNIQUE) Residual volume is 65% and total lung capacity is 95%. LUNG DIFFUSION: Severely reduced to 44%. Corrected DLCO is 51%. Corrected DLCO 12 low volume is 49%. ARTERIAL BLOOD GASES: pH 7.46 with PaCO2 of 31 and bicarb of 22. Most likely the patient was acutely hyperventilating. Oxygenation is adequate. CLINICAL IMPRESSION: This is mixed obstructive and restrictive pattern with reduced DLCO out of proportion to the decrease of spirometry and lung volumes. The patient may have parenchymal lung disease and also pulmonary vascular disease needs to be ruled out like pulmonary hypertension and pulmonary embolism. Post bronchodilators response did not meet the criteria of ATS. Electronically Signed by: Scott Scruggs MD 05/23/2020 05:53 P Scott Scruggs MD [facility] Date Dict: 05/23/2020/05:08 P/Scott Scruggs MD Date Trans: 05/23/2020 05:08 P/ [id number]_JN:[id number] cc: Johanna Blandon M.D. [address] [place] [phone] Normal [facility] ARTERIAL BLOOD GAS W/COOXon 05-11-2020 BASE EXCESS -1 mmol/L Normal -2-3 [facility] Comment on above: Performed By: #### 4 0055 #### [facility] [address] [facility]. [address] COHB 1.5 % Normal 0.0-1.5 [facility] Comment on above: Performed By: #### 4 0055 #### [facility] [address] [facility] [place] [address], [facility] DELIVERY [employer] RA Normal [facility] Comment on above: Performed By: #### 4 0055 #### [facility] [address] [place] [address], [facility] FIO2 0 % Normal [facility] Comment on above: Performed By: #### 4 0055 #### [facility] [address] [place] [address], [facility] HCO3 (Bld) [Moles/Vol] 22 mmol/L Normal 21-28 [facility] Comment on above: Performed By: #### 4 0055 #### [facility] [address] [place] [address], [facility] METHB 1.0 % Normal 0.0-1.5 [facility] Comment on above: Performed By: #### 4 0055 #### [facility] [address] Oxygen (Bld) [Partial pressure] 95 mm[Hg] Normal 83-108 [facility] Comment on above: Performed By: #### 4 0055 #### [facility] [address] Oxygen saturation in Blood 96.5 % Normal 94.0-97.0 [facility] Comment on above: Performed By: #### 4 0055 #### [facility] [address] PCO2 31 mmHg Low 35-45 [facility] Comment on above: Performed By: #### 4 0055 #### [facility] [address] pH (Bld) 7.46 [pH] High 7.35-7.45 [facility] Comment on above: Performed By: #### 4 0055 #### [facility] [address] THB 12.2 g/dL Normal 12.0-16.3 [facility] Comment on above: Performed By: #### 4 0055 #### [facility] [address] *SARS-CoV-2 COVID-19on 05-08 [id number] Not Detected Normal Not Detected [facility] Comment on above: Order Comment: The A ptima SARS-CoV-2 assay is a nucleic acid amplification test intended for the qualitative detection of RNA from SARS-CoV-2 isolated and purified from nasopharyngeal (PROFESSOR OF BIOLOGY),oropharyngeal (OP), nasal swab, sputum, and bronchoalveolar lavage (BAL) specimens from patients with signs and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
--- NOTE | 2023-10-16 10:03 | CA_ITS ---
Patient Name: MAXIMINO CLARKE MR#: [id number] : 1955 Exam Date: 10/16/2023 Ordering Doctor: KAT VASQUEZ M.D. ECHOCARDIOGRAM REPORT PROCEDURE: CA ECHO DOPPLER COMPLETE INDICATIONS: Chest pain COMPARISON: None. DESCRIPTION: COMPLETE ECHOCARDIOGRAM Real-time transthoracic echocardiography with 2D, M-mode, spectral and color flow Doppler performed. QUALITY: Technical quality was good. LEFT VENTRICLE: Normal chamber size. Moderate concentric left ventricular hypertrophy. Systolic function is at the lower limits of normal. LV EF: Lower limits of normal left ventricular ejection fraction, (50-55%). DIASTOLIC: Grade 2 diastolic dysfunction. ATRIAL SEPTUM: LEFT ATRIUM: Mild dilatation. RIGHT ATRIUM: Mild dilatation. RIGHT VENTRICLE: Normal chamber size. Normal right ventricular systolic function. TRICUSPID VALVE: Normal mobility and thickness. No stenosis with trivial regurgitation. Moderate pulmonary hypertension. RVSP 48 mmHg MITRAL VALVE: Normal mobility and thickness. No evidence of mitral valve stenosis. There is no mitral annular calcification. Mild mitral regurgitation. AORTIC VALVE: Normal trileaflet appearance. No visible sclerosis. Normal leaflet mobility. No evidence of aortic valve stenosis. Trivial aortic regurgitation. AORTIC ROOT: Mildly dilated, measuring 3.7 cm. Mild to moderate dilatation of the ascending aorta measuring 4.0 cm PULMONIC VALVE: Normal thickness and mobility. No stenosis. No regurgitation. PERICARDIUM: No evidence of pericardial effusion. IVC: Collapses with inspirations. Mild dilatation measuring 2.2 cm PLEURA: CONCLUSION: 1. Moderate concentric left ventricular hypertrophy with low normal systolic function. LVEF is 50 to 55%. 2. Grade 2 diastolic function. 3. Normal right ventricular size and systolic function. 4. No significant valvular dysfunction. 5. Moderately elevated right-sided pressures. RVSP is 48 mmHg. 6. Mild to moderate dilatation of the ascending aorta measuring 4.0 cm. Adult Echocardiography Procedure Report Left Ventricle LVEDD (3.7 - 5.6 cm): 4.78 cm LVESD (2.2 - 4.0 cm): 3.37 cm LVIVS thickness (0.6 - 1.2 cm): 1.36 cm LVPW thickness (0.5 - 1.0 cm): 1.39 cm e': 0.06 m/s E - e': 6.90 LVOT Max Gradient: 1.58 mm[Hg] LVOT Area (cm2): 0.63 m/s Peak Velocity (LVOT): 0.63 m/s Mean Velocity (LVOT): 0.44 m/s LVOT Diameter 2.33 cm Left Ventricular Ejection Fraction: 50-55% Left Atrium LA Volume Index (2D A2C): 46.45 ml/m2 Left Atrium Systolic Dimension: 4.21 cm Mitral Valve MV E to A Ratio: 0.91 Mitral Valve A-Wave Peak Velocity: 0.44 m/s Mitral Valve E-Wave Peak Velocity: 0.40 m/s Right Ventricle RV Internal Diastolic Dimension: 3.93 cm Aorta AO Root Diam: 3.72 cm Ascending Ao Diam: 3.98 cm Aortic Valve AoV Area (Peak Star): 2.58 cm2, 2.58 cm2 AoV Area (VTI): 2.36 cm2, 2.36 cm2 Peak Velocity(Antegrade Flow): 1.04 m/s Peak Gradient(Antegrade Flow): 4.29 mm[Hg] Mean Velocity(Antegrade Flow): 0.72 m/s Mean Gradient(Antegrade Flow): 2.41 mm[Hg] Velocity Time Integral: 24.95 cm Tricuspid Valve Peak Velocity (Regurgitant Flow): 1.99 m/s, 3.17 m/s, 2.76 m/s Pulmonic Valve Peak Velocity: 0.68 m/s Peak Gradient: 1.90 mm[Hg], 1.83 mm[Hg] Right Atrium Right Atrium Systolic Pressure: 83.86 ml, 83.86 ml Dictated by: Pavel Flores M.D. on 10/17/2023 at 17:53 Approved by: Pavel Flores M.D. on 10/17/2023 at 17:58
== END 2023-10-16 08:51 | disposition home or self-care (01) ==
LOC: CARD 08:50
PROVIDERS: PCP Internal Medicine; Visit Provider Internal Medicine Cardiovascular Disease
DX: R07.9 Chest pain, unspecified (principal)
CPT/HCPCS: 93306; 93356

== ENCOUNTER 2023-11-13 08:16 | Outpatient (OUT) | payer OTHER, MEDICARE, SELFPAY ==
--- NOTE | 2023-11-13 | PCN_ITS ---
CARDIAC STRESS TEST Requesting Physician: Procedure Date: 11/13/2023 This was a treadmill exercise stress test with myocardial perfusion imaging performed at the [facility] on 11/13/2023. Informed consent was obtained. An intravenous line was secured. Baseline ECG and vital signs were obtained. The patient exercised on a treadmill for 4 minutes and 58 seconds, according to the Kennedy protocol and reached stage 2 and achieved 7 METS. Resting heart rate was 62 BPM and maximum heart rate was 130 BPM, representing 84% of maximum predicted heart rate. Resting blood pressure was 162/88 and maximum blood pressure was 224/128. The stress test was stopped due to achieving target heart rate and shortness of breath. Resting ECG showed normal sinus rhythm with a right bundle branch block. ECG during peak exercise showed evidence of sinus tachycardia with occasional PVCs and [address] segment depressions in leads V3, V4 and V5. During recovery, there was evidence of sinus rhythm with occasional PVCs and the ST segment depressions returned to baseline. Final ECG was comparable to baseline and showed sinus rhythm with right bundle branch block. SUMMARY OF THE FINDINGS: 1. Positive exercise stress test for treadmill exercise induced ischemic ECG changes. 2. 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 3. Resting hypertension and exaggerated blood pressure response to exercise. 4. Myocardial perfusion images will be reported separately. SARAHD
--- NOTE | 2023-11-13 08:00 | NM_ITS ---
Patient Name: MAXIMINO CLARKE MR#: [id number] : 1955 Exam Date: 11/13/2023 Ordering Doctor: KAT VASQUEZ M.D. RADIOLOGY REPORT PROCEDURE: NM LANCE PERF SPECT REST STR COMPARISON: None. INDICATIONS: CHEST PAIN, UNSPECIFIED TECHNIQUE: Exam Description: Stress/Rest one day protocol gated SPECT Rest Imagin.7 mCi Tc-99m Cardiolite IV on 11/13/2023 Stress Imaging 30.3 mCi Tc-99m Cardiolite IV on 11/13/2023 Exercise Protocol: Kennedy Heart Rate (bpm): Rest: 62 Max: 130 PMHR: 85 Blood Pressure: Rest: 162/88 Max: 224/128 Exercise Time: Minutes: 4 Seconds: 58 Stage Reached: Stage: 2 Mets 7.0 Symptoms: Rest and peak stress ECG findings were abnormal and the exercise portion of the study was abnormal per attending physician Dr. Flores due to EKG CHANGES. For more details please see separate cardiac stress test report. FINDINGS: QUALITY OF STUDY: Excellent. PERFUSION DEFECT: None. LOCATION: N/A SIZE: N/A. SEVERITY: N/A. TYPE: N/A. WALL MOTION: Normal. LV SIZE: Normal. 94 mL. TID / TCD: None; 0.7 LVEF: Normal. Calculated EF 59%. SUMMARY: Myocardial perfusion imaging study is NORMAL. CONCLUSION: 1. No reversible ischemia 2. Abnormal exercise test secondary to EKG changes Dictated by: Rashaad Davis MD on 11/14/2023 at 14:05 Approved by: Rashaad Davis MD on 11/14/2023 at 14:16
--- OUTSIDE RECORDS SUMMARY | 2023-11-13 08:19 | XMS_ITS | CCD ---
Author Name Unknown Address [address] [place] [address] [place] [address] Organization [facility] Care Team Providers Care Parach[employer]er Name Role Phone JOHANNA BLANDON Primary Care Physician BLANDON ., DR JOHANNA Reyes Primary Care [...] ., DR JOHANNA Reyes Primary Care Unavailable JOHNANA BLANDON Primary Care Physician Mary Ellen Hebert Primary Care Physician [phone] Mary Ellen Hebert Attending Unavailable Jim RUTHERFORD [...] Medication Allergies] Propensity to adverse reactions (disorder) 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; 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: [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] Onset: 12-21-2022 Episodic [...] Name Value Interpretation Reference Range Facil ity Office Visiton 10-06-2023 Follow-up visit [id number] Maximino Clarke 1955 M Date Provider Department Center 10/06/2023 3848-LEIGHANN VASQUEZKAYCEEDru JUSTO [facility] Family History Problem Relation Age of Onset Hypertension Mother Cancer Mother Family Status - Relation Status Age at Mother Level of Service:[address] [place] OFFICE/OUTPATIENT NEW MODERATE MDM 45 MINUTES Normal [facility] Retail - Clinical Noteon Retail - Clinical Note [id number] #1.00TIFF Normal [facility] Consultation Noteon 09-08-20 Consultation Note [id number] #1.00TIFF Normal [facility] Ambulatory Visit Summaryon 10-30-2022 Ambulatory Visit Summary JADON CLARKEBRUNA Reyes :1955 Visit Date:08/30/2023 Ambulatory Visit Instructions Your [...] EST With: Mary Ellen Dela Cruz Where: [facility] Normal [address] [place] [address]- \.br\ Medications\.br\ What How Much When Why Instructions\.br\ New azithromycin (azithromycin 250 mg Tab) 1 Packets By Mouth As Directed Right otitis media Cough Sore throat Headache BMI 30.0-30.9,adult Non-smoker Duration: 5 Days as directed on package labeling Pickup at [facility] #52181\.br\ New methylPREDNISolone (Medrol 4 mg Tab) 1 Packets By Mouth As Directed Right otitis media Cough Sore throat Headache BMI 30.0-30.9,adult Non-smoker Duration: 6 Days as directed on package labeling Pickup at [facility] #41761\.br\ Unchanged albuterol (albuterol 0.083% Inh Anne 3 [...] Milligram By Mouth Every day\.br\ Pharmacy Information\.br\ [facility] #10686: [address] [place], [place] [id number] [phone]\.br\ Allergies\.br\ No Known Allergies\.br\ No Known Medication [...] for choosing us for your care.\.br\ \.br\ [facility] Ambulatory Visit Summary MAXIMINO CLARKE Amy :1955 Visit Date:08/30/2023 Ambulatory Visit Instructions Your [...] EST With: Mary Ellen Dela Cruz Where: [facility] Normal [address] [place] [address]- \.br\ Medications\.br\ What How Much When Why [...] for choosing us for your care.\.br\ \.br\ [facility] Family Medicine Office/Clini c Noteon 08-30-2023 Family Medicine [...] day(s), # 6 tab(s), Refills(s) 0, Pharmacy: [facility] #21408, 172.7, cm, 08/30/23 16:58:00 EST, Height/Length Dosing, 92.2, kg, 08/30/23 16:58:00 EST, Weight Dosing methylPREDNISolone, = 1 packet(s), Oral, As Directed, as directed on package labeling, X 6 day(s), # 21 tab(s), Refills(s) 0, Pharmacy: [facility] #35922, 172.7, cm, 08/30/23 16:58:00 EST, Height/Length Dosing, 92.2, kg, 08/30/23 16:58:00 EST, Weight Dosing 2. Cough (R05.9: Cough, unspecified) lung sound are tight pt coughing. pt has follow up with Dr. Barlow had CT of chest done recently Ordered: azithromycin, = 1 packet(s), Oral, As Directed, as directed on package labeling, X 5 day(s), # 6 tab(s), Refills(s) 0, Pharmacy: [facility] #80433, 172.7, cm, 08/30/23 16:58:00 EST, Height/Length Dosing, 92.2, kg, 08/30/23 16:58:00 EST, Weight Dosing methylPREDNISolone, = 1 packet(s), Oral, As Directed, as directed on package labeling, X 6 day(s), # 21 tab(s), Refills(s) 0, Pharmacy: [facility] #63598, 172.7, cm, 08/30/23 16:58:00 EST, Height/Length Dosing, 92.2, kg, 08/30/23 16:58:00 EST, Weight Dosing 3. Sore throat (J02.9: Acute pharyngitis, unspecified) thrat is red no exudate Ordered: azithromycin, = 1 packet(s), Oral, As Directed, as directed on package labeling, X 5 day(s), # 6 tab(s), Refills(s) 0, Pharmacy: [facility] #73117, 172.7, cm, 08/30/23 16:58:00 EST, Height/Length Dosing, 92.2, kg, 08/30/23 16:58:00 EST, Weight Dosing methylPREDNISolone, = 1 packet(s), Oral, As Directed, as directed on package labeling, X 6 day(s), # 21 tab(s), Refills(s) 0, Pharmacy: [facility] #61897, 172.7, cm, 08/30/23 16:58:00 EST, Height/Length Dosing, 92.2, kg, 08/30/23 16:58:00 EST, Weight Dosing 4. Headache (R51.9: Headache, unspecified) sinus tenderness Ordered: azithromycin, = 1 packet(s), Oral, As Directed, as directed on package labeling, X 5 day(s), # 6 tab(s), Refills(s) 0, Pharmacy: [facility] #22988, 172.7, cm, 08/30/23 16:58:00 EST, Height/Length Dosing, 92.2, kg, 08/30/23 16:58:00 EST, Weight Dosing methylPREDNISolone, = 1 packet(s), Oral, As Directed, as directed on package labeling, X 6 day(s), # 21 tab(s), Refills(s) 0, Pharmacy: [facility] #47712, 172.7, cm, 08/30/23 16:58:00 EST, Height/Length Dosing, 92.2, kg, 08/30/23 16:58:00 EST, Weight Dosing 5. BMI 30.0-30.9,adult (Z68.30: Body mass index [BMI] 30.0-30.9, adult) bmi education complete Ordered: azithromycin, = 1 packet(s), Oral, As Directed, as directed on package labeling, X 5 day(s), # 6 tab(s), Refills(s) 0, Pharmacy: [facility] #86404, 172.7, cm, 08/30/23 16:58:00 EST, Height/Length Dosing, 92.2, kg, 08/30/23 16:58:00 EST, Weight Dosing methylPREDNISolone, = 1 packet(s), Oral, As Directed, as directed on package labeling, X 6 day(s), # 21 tab(s), Refills(s) 0, Pharmacy: [facility] #63541, 172.7, cm, 08/30/23 16:58:00 EST, Height/Length Dosing, 92.2, kg, 08/30/23 16:58:00 EST, Weight Dosing 6. Non-smoker (Z78.9: Other specified health status) continue not smoking Ordered (more content not included)... [facility] Comment on above: Result Comment: Elec tronically Signed By: Mary Ellen Dela Cruz\.br\Date and Time Signed: 08/30/23 17:11 EST Consultation Noteon 08-03-20 Consultation Note [id number] #1.00TIFF [facility] Physician Referralon 023 Physician Referral [id number]#1.00TIFF [facility] Ambulatory Visit Summaryon 1 Ambulatory Visit Summary VINCE MAXIMINO E :1955 Visit Date:07/14/2023 Ambulatory Visit Instructions Your [...] EST With: Mary Ellen Dela Cruz Where: [facility] Normal [facility] Auto Diffon 07-14-2023 Basophils/100 WBC (Bld) 0.7 % Normal 0.0-2.[address] [facility] Comment on above: Order Comment: Order Added by Discern Expert. Performed By: #### 2 052021, 3808234, 4784953, 0584959, 96518966, 5968462, 43093567 ####[facility] [address] [place] [address] Basophils/Leukocyte s Auto (Bld) [Pure # fraction] 0.0 E9/L Normal 0.0-0.[address] [facility] Comment on above: Order Comment: Order Added by Discern Expert. Performed By: #### 2 044001, 7180103, 4551730, 5531563, 26113925, 4462691, 48931242 ####[facility] [address] [place] [address] Eosinophils/100 WBC (Bld) 1.3 % Normal 0.0-8.[address] [facility] Comment on above: Order Comment: Order Added by Discern Expert. Performed By: #### 2 146806, 4109309, 4263332, 9596934, 77103952, 0163343, 47786374 ####[facility] [address] [place] [address] Eosinophils/Leukocy funmilayo Auto (Bld) [Pure # fraction] 0.1 E9/L Normal 0.0-0.[address] [facility] Comment on above: Order Comment: Order Added by Discern Expert. Performed By: #### 2 236462, 5004629, 2620326, 1067680, 93990681, 0885063, 74253800 ####[facility] [address] [place] [address] Lymphocytes/100 WBC (Bld) 20.2 % Normal 14.0-50.[address] [facility] Comment on above: Order Comment: Order Added by Discern Expert. Performed By: #### 2 447902, 1258307, 8236758, 3959885, 08283377, 3251431, 15596039 ####[address] [place] [address] Lymphocytes/Leukocy funmilayo Auto (Bld) [Pure # fraction] 1.4 E9/L Normal 1.0-4.[address] [facility] Comment on above: Order Comment: Order Added by Discern Expert. Performed By: #### 2 210343, 0015513, 2131457, 0372198, 01426565, 9705859, 24142246 ####[address] [address] Monocytes/100 WBC (Bld) 12.3 % Normal 4.0-14.[address] [facility] Comment on above: Order Comment: Order Added by Discern Expert. Performed By: #### 2 033422, 5099617, 8092395, 6615053, 05201118, 2875720, 75287687 ####[facility] [address] [place] [address] Monocytes/Leukocyte s Auto (Bld) [Pure # fraction] 0.8 E9/L Normal 0.2-1.[address] [facility] Comment on above: Order Comment: Order Added by Discern Expert. Performed By: #### 2 738811, 6538352, 7556858, 8269778, 02860829, 7231797, 18182617 ####[facility] [address] [place] [address] Neutrophils/100 WBC (Bld) 65.5 % Normal 36.0-75.[address] [facility] Comment on above: Order Comment: Order Added by Discern Expert. Performed By: #### 2 607699, 2642402, 9878089, 4745734, 15721996, 2725896, 88073485 ####[address] [place] [address] Neutrophils/Leukocy funmilayo Auto (Bld) [Pure # fraction] 4.5 E9/L Normal 2.0-7.[address] [facility] Comment on above: Order Comment: Order Added by Discern Expert. Performed By: #### 2 839329, 6681054, 8563474, 2388064, 59042296, 3781884, 27500305 ####[address] [place] [address] CBC w/ Auto Diffon Erythrocyte distribution width (RBC) [Ratio] 13.9 % Normal 10.9-14.[address] [facility] Comment on above: Performed By: #### 2 480692, 9145548, 0693492, 4366280, 00507914, 1894321, 70994390 ####[address] [place] [address] Hematocrit (Bld) [Volume fraction] 47.7 % Normal 37.7-49.[address] [facility] Comment on above: Performed By: #### 2 012438, 6652317, 5850112, 0880515, 59379252, 4309253, 25877180 ####[address] [place] [address] Hemoglobin (Bld) [Mass/Vol] 15.8 g/dL Normal 13.5-17.[address] [facility] Comment on above: Performed By: #### 2 513589, 4209806, 3182944, 9433422, 61334117, 1743629, 27426458 ####[address] [place] [address] MCH (RBC) [Entitic mass] 30.2 pg Normal 27.0-34.[address] [facility] Comment on above: Performed By: #### 2 277401, 4944150, 0443380, 0777247, 83724524, 6917653, 64422871 ####[facility] [address] [place] [address] MCHC (RBC) [Mass/Vol] 33.2 g/dL Normal 31.4-36.[address] [facility] Comment on above: Performed By: #### 2 285945, 8547105, 7072503, 1876333, 03975459, 4389497, 39418048 ####[address] [place] [address] MCV (RBC) [Entitic vol] 90.9 fL Normal 80.0-100.[address] [facility] Comment on above: Performed By: #### 2 258067, 8499794, 3944630, 1577417, 90844256, 0991968, 67545881 ####[address] [address] Platelet mean volume (Bld) [Entitic vol] 11.2 fL High 6.4-10.[address] [facility] Comment on above: Performed By: #### 2 162467, 7906288, 6420849, 7230272, 33614035, 4394929, 34477759 ####[address] [address] Platelets (Bld) [#/Vol] 105.0 E9/L Low 150.0-500.[address] [facility] Comment on above: Performed By: #### 2 838436, 8407836, 4696859, 6768372, 15414295, 8745329, 78327369 ####[address] [place] [address] RBC (Bld) [#/Vol] 5.2 E12/L Normal 4.3-5.[address] [facility] Comment on above: Performed By: #### 2 348066, 2582725, 5939834, 7988958, 34304052, 5600632, 74687411 ####[facility] [address] [place] [address] WBC corrected for nucl RBC Auto (Bld) [#/Vol] 6.8 E9/L Normal 4.0-11.[address] [facility] Comment on above: Performed By: #### 2 027318, 8227455, 6662526, 9424051, 99994361, 2821307, 15209391 ####[facility] [address] [place] [address] CHEMISTRYOrdered By: SYSTEM SYSTEM on 07-14-2023 Albumin [...] rate/Area] 51 mL/min/1.73 m2 Low >=59mL/min/1.73 m2 [facility] Comment on above: Interpretive Data: [...] 3.6 mmol/L Normal 3.5 - 5.3 mmol/L [facility] Prostate specific Ag [Mass/Vol] 1.4 ng/mL Normal 0.1 - 3.5 ng/mL [facility] Comment on above: Interpretive Data: T he concentration of PSA determined by different manufacturers can vary due to differences in assay methods and reagent specificity. Values obtained from different assay methods cannot be used interchangeably. The methodology used for this result was chemiluminescence using [employer] Access [employer] PSA reagent. Protein [Mass/Vol] 7.8 g/dL Normal 6.0 - 7.8 gm/dL [facility] Sodium [Moles/Vol] 148 mmol/L High 135 - 145 mmol/L [facility] Triglyceride [Mass/Vol] 230 mg/dL High <=149mg/dL [facility] TSH Qn 0.60 m[IU]/L Normal 0.34 - 5.60 mcIU/mL [facility] Urea nitrogen [Mass/Vol] 14 mg/dL Normal 5 - 21 mg/dL [facility] Urea nitrogen/Creatinine [Mass ratio] 9 mg/mg Low 10 - [facility] Remisol CMPon 07-14-2023 Albumin [Mass/Vol] 4.2 g/dL Normal 3.3-5.[address] [facility] Comment on above: Performed By: #### 2 367335, 4548657, 3089959, 8499206, 53140376, 6048022, 67264866 ####[facility] [address] [place] [address] Albumin/Globulin (S) [Mass conc ratio] 1.2 Normal 1.1-2.[address] [facility] Comment on above: Performed By: #### 2 096074, 7930874, 4178501, 9963350, 06503892, 7464680, 78033592 ####[facility] [address] [place] [address] ALP [Catalytic activity/Vol] 75 Int._Unit/L Normal 21-[address] [facility] Comment on above: Performed By: #### 2 409510, 6482242, 2580694, 4626168, 14879598, 7435837, 11383874 ####[facility] [address] [place] [address] ALT No additional P-5'-P [Catalytic activity/Vol] 28 Int._Unit/L Normal 6-[address] [facility] Comment on above: Performed By: #### 2 946364, 9387634, 1713077, 7258854, 74032982, 2274653, 73388960 ####[facility] [address] [place] [address] Anion gap [Moles/Vol] 11 mmol/L Normal 6-[address] [facility] Comment on above: Performed By: #### 2 370798, 5048066, 3293056, 3975307, 96991377, 6953998, 88581039 ####[facility] [address] [place] [address] AST [Catalytic activity/Vol] 30 Int._Unit/L Normal 5-[address] [facility] Comment on above: Performed By: #### 2 270459, 9158769, 8623493, 8668887, 92332242, 6015898, 74262469 ####[facility] [address] [place] [address] Bilirubin [Mass/Vol] 0.4 mg/dL Normal 0.0-1.[address] [facility] Comment on above: Performed By: #### 2 817687, 7040250, 9769651, 3959323, 80435626, 6774135, 30033341 ####[facility] [address] [place] [address] Calcium [Mass/Vol] 10.2 mg/dL Normal 8.9-11.[address] [facility] Comment on above: Performed By: #### 2 042370, 5712585, 6755417, 4628452, 90031855, 4006992, 23692185 ####[facility] [address] [place] [address] Chloride [Moles/Vol] 113 mmol/L High 101-[address] [facility] Comment on above: Performed By: #### 2 803653, 6011650, 2642883, 6311039, 92605171, 9193706, 10096876 ####[facility] [address] [place] [address] CO2 [Moles/Vol] 28 mmol/L Normal 21-[address] [facility] Comment on above: Performed By: #### 2 673247, 6806683, 2809691, 5161853, 22525846, 2186338, 58430227 ####[facility] [address] [place] [address] Creatinine [Mass/Vol] 1.5 mg/dL High 0.5-1.[address] [facility] Comment on above: Performed By: #### 2 533666, 7870713, 4825473, 8578145, 73975788, 9895586, 53943770 ####[facility] [address] [place] [address] Globulin (S) [Mass/Vol] 3.6 g/dL Normal 1.4-4.[address] [facility] Comment on above: Performed By: #### 2 009452, 2780976, 2736894, 7449878, 86572550, 7081988, 48074110 ####[facility] [address] [place] [address] Glucose [Mass/Vol] 96 mg/dL Normal 55-[address] [facility] Comment on above: Result Comment: If t his glucose result represents a fasting glucose, interpretation should refer to the following reference range: 55-99 mg/dL Performed By: #### 2 637329, 3931778, 3388122, 5343967, 01663032, 8994238, 80128127 ####[facility] [address] [place] [address] Potassium [Moles/Vol] 3.6 mmol/L Normal 3.5-5.[address] [facility] Comment on above: Performed By: #### 2 278697, 5391034, 1143055, 5250330, 62609390, 3696010, 39078790 ####[facility] [address] [place] [address] Protein [Mass/Vol] 7.8 g/dL Normal 6.0-7.[address] [facility] Comment on above: Performed By: #### 2 340912, 3187889, 9394838, 1908804, 78422828, 2895362, 18058108 ####[facility] [address] [place] [address] Sodium [Moles/Vol] 148 mmol/L High 135-[address] [facility] Comment on above: Performed By: #### 2 671685, 3788829, 8794861, 4794414, 37738651, 0057421, 15227956 ####[facility] [address] [place] [address] Urea nitrogen [Mass/Vol] 14 mg/dL Normal 5-[address] [facility] Comment on above: Performed By: #### 2 156829, 7523125, 5510300, 1616115, 94480762, 6630760, 02258394 ####[facility] [address] [place] [address] Urea nitrogen/Creatinine [Mass ratio] 9 No Units Low 10-[address] [facility] Comment on above: Performed By: #### 2 270139, 8538243, 0820903, 7260146, 56290618, 0498141, 43046549 ####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 [place] When was your last doctors visit: Last provider: Dr Blandon Any recent labs:10/11/22 TSH 0.231, wellness labs 01/2022 Health Maintenance UTD: Colonoscopy: 12/28/22 due in 10 years PSA: Acute: Current issues/complaints: SOB: getting more short of breath quicker, 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 Chronic obstructive pulmonary disease (J44.9: Chronic obstructive pulmonary disease, unspecified) pt has had COPD for 22 years. has not been to dry talc racker in over 10 years. was seeing someone in [place]. Will send referral to Dr. Barlow. will order steroid inhaler today Ordered: budesonide, 1 inh, Inhalation, BID, 1 EA, Refill(s) 11, [facility] #77542, 172.7, cm, 07/14/23 13:11:00 EDT, Height/Length Dosing, 92, kg, 07/14/23 13:11:00 EDT, Weight Dosing CBC w/ Auto Diff Comprehensive Metabolic Panel [facility] [place] Lab Specimen Collect [id number] Lipid Panel PSA Screen, Total Thyroid Stimulating Hormone 3. Fatigue (R53.83: Other fatigue) will order labs. BP is elevated Ordered: budesonide, 1 inh, Inhalation, BID, 1 EA, Refill(s) 11, [facility] #65451, 172.7, cm, 07/14/23 13:11:00 EDT, Height/Length Dosing, 92, kg, 07/14/23 13:11:00 EDT, Weight Dosing CBC w/ Auto Diff Comprehensive Metabolic Panel Lab Specimen Collect [id number] Lipid Panel PSA Screen, Total Thyroid Stimulating Hormone 4. Hypertension (I10: Essential (primary) hypertension) pt has been out of BP meds for 2 months. just started taking it again 2 days ago Ordered: budesonide, 1 inh, Inhalation, BID, 1 EA, Refill(s) 11, [facility] #[id number], 172.7, cm, 07/14/23 13:11:00 EDT, Height/Length Dosing, 92, kg, 07/14/23 13:11:00 EDT, Weight Dosing CBC w/ Auto Diff Comprehensive Metabolic Panel Lab Specimen Collect 53371 Lipid Panel PSA Screen, Total Thyroid Stimulating Hormone 5. Prostate cancer screening (Z12.5: Encounter for screening for malignant neoplasm of prostate) psa ordered today Ordered: budesonide, 1 inh, Inhalation, BID, 1 EA, Refill(s) 11, [facility] #82684, 172.7, cm, 07/14/23 13:11:00 EDT, Height/Length Dosing, 92, kg, 07/14/23 13:11:00 EDT, Weight Dosing CBC w/ Auto Diff Comprehensive Metabolic Panel Lab Specimen Collect [id number] Lipid Panel PSA Screen, Total Thyroid Stimulating Hormone 6. BMI 31.0-31.9,adult (Z68.31: Body mass index [BMI] 31.0-31.9, adult) BMI education complete Ordered: budesonide, 1 inh, Inhalation, BID, 1 EA, Refill(s) 11, [facility] #[id number], 172.7, cm, 07/14/23 13:11:00 EDT, Height/Length Dosing, 92, kg, 07/14/23 13:11:00 EDT, Weight Dosing CBC w/ Auto Diff Comprehensive Metabolic Panel Lipid Panel PSA Screen, Total Thyroid Stimulating Hormone 7. Non-smoker (Z78.9: Other specified health status) continue not smoking Ordered: budesonide, 1 inh, Inhalation, BID, 1 EA, Refill(s) 11, [facility] #[id number], 172.7, cm, 07/14/23 13:11:00 EDT, Height/Length Dosing, 92, kg, 07/14/23 13:11:00 EDT, Weight Dosing CBC w/ Auto Diff Comprehensive (more content not included)... Normal [facility] Comment on above: Result Comment: Elec tronically Signed By: Emilee CARREON, Mary Ellen Kirkland.br\Date and Time Signed: 07/14/23 14:54 EDT HEMATOLOGYOrdered [...] 90.9 fL Normal 80.0 - 100.0 fL [facility] Platelet mean volume (Bld) [Entitic vol] 11.2 fL High 6.4 - 10.8 fL [facility] Platelets (Bld) [#/Vol] 105.0 E9/L Low 150.0 - 500.0 E9/L [facility]eAutoSS RBC (Bld) [#/Vol] 5.2 E12/L Normal 4.3 - 5.9 E12/L [facility] HemeAutoSS WBC corrected for nucl RBC Auto (Bld) [#/Vol] 6.8 E9/L Normal 4.0 - 11.0 E9/L [facility] Lipid Panelon 07-14-2023 Cholesterol [Mass/Vol] 191 mg/dL Normal 120-[address] [facility] Comment on above: Performed By: #### 2 564077, 6950522, 2070159, [id number], [id number], [id number], [id number] ####[facility] [address] [place] [address] Cholesterol in HDL [Mass/Vol] 29 mg/dL Invalid Interpretation Code [facility] Comment on above: Result Comment: HDL > or equal to 60 mg/dL: Low cardiovascular risk HDL < 40 mg/dL : High cardiovascular risk Performed By: #### 2 [id number], 3020983, 6647026, 8059980, 46809803, [id number], [id number] ####[facility] [address] [place] [address] Cholesterol in LDL [Mass/Vol] 106 mg/dL Normal <=[address] [facility] Comment on above: Performed By: #### 2 926150, 4971094, 2864807, 2615833, 46978304, 6328239, [id number] ####[facility] [address] [place] [address] Cholesterol in VLDL [Mass/Vol] 46 mg/dL High 7-[address] [facility] Comment on above: Performed By: #### 2 032988, 4766419, 5686818, 7687340, 88106264, 9475537, [id number] ####[facility] [address] [place] [address] Triglyceride [Mass/Vol] 230 mg/dL High <=[address] [facility] Comment on above: Performed By: #### 2 065141, 5131140, 0687088, 9563943, 70299038, 1683846, [id number] ####[facility] [address] [place] [address] PSA Screen, Totalon 07-14-20 23 Prostate specific Ag [Mass/Vol] 1.4 ng/mL Normal 0.1-3.[address] [facility] Comment on above: Result Comment: The concentration of PSA determined by different manufacturers can vary due to differences in assay methods and reagent specificity. Values obtained from different assay methods cannot be used interchangeably. The methodology used for this result was chemiluminescence using [employer] Access Hybritech PSA reagent. Performed By: #### 2 917382, 5945266, 0127107, 5295872, 04418806, 0051176, 26454514 ####[facility] [address] [place] [address] TSHon 07-14-2023 TSH Qn 0.60 m[IU]/L Normal 0.34-5.[address] [facility] Comment on above: Performed By: #### 2 352090, 4039852, 8189300, 9230489, 30191071, 7564772, 11948182 ####[facility] [address] [place] [address] eGFRon 07-14-2023 GFR/1.73 sq M.predicted among non-blacks MDRD (S/P/Bld) [Vol rate/Area] 51 mL/min/1.73 m2 Low >=[address] [facility] Comment on above: Order Comment: Order added by Discern Expert. Result Comment: Complex [employer]igation Paralegal elida kidney disease could be indicated at eGFR's of less than 60 mL/min/1.73m2. Kidney failure is indicated at less than 15 mL/min/1.73m2. Performed By: #### 2 834081, 4069390, 4568183, 8594228, 62482172, 1487493, [id number] ####[facility] [address] [place] [address] Lab Reportson 07-12-2023 Lab Reports [id number] 1#1.00TIFF [facility] Formson 02-22-2023 Forms [id number] #1.00CD:[address] [facility] Retail - Clinical Noteon Retail - Clinical Note [id number] #1.00CD:127 [facility] Ambulatory Visit Summaryon 0 12-28-2022 Ambulatory Visit Summary VINCE MAXIMINO E :1955 Visit Date:12/28/2022 Ambulatory Visit Instructions Your [...] no longer receiving treatment for. Anticoagulated Normal [facility] General Surgery Office/Clini c Noteon 12-28-2022 General [...] (COVID-19) mRNA BNT-162b2 vax 12/14/2020 Recorded Normal [facility] Comment on above: Result Comment: Elec tronically Signed By: DANNA DHALIWAL, Grzegorz [place]\Date and Time Signed: 12/28/22 16:27 EDT Reminderson 12-28-2022 Reminders - From: Aileen Finnegan LPN To: N - Clinical; Sent: 12/28/2022 14:58:48 EDT Show up: 11/16/2032 07:00:00 EST Subject: colonoscopy recall Due Date/Time: 12/14/2032 07:00:00 EDT Reminder/Recall Patient is due for screening colonoscopy 12/14/2032. Normal [facility] Pathology Noteon 12-25-2022 Pathology Note [id number] 1.00CD:[address] [facility] Outside Colonoscopyon 2022 Outside Colonoscopy [id number] #1.00CD:[address] [facility] Facesheeton 11-24-2022 Facesheet [id number] #1.00CD:127 [facility] Consent for Procedure/Surger yon 11-23-2022 Consent for Procedure/Surgery [id number] #1.00CD:[address] [facility] Ambulatory Visit Summaryon 0 11-22-2022 Ambulatory [...] no longer receiving treatment for. Anticoagulated Normal [facility] Physician Referralon 023 Physician Referral [id number] #1.00CD:[address] [facility] CBC AUTO DIFFon 10-11-2022 BASO # 0.0 103/ul Normal 0.0-0.1 [facility] Comment on above: Performed By: #### C BC #### [facility] [address] [address] [address] Anup Paez Basophils/100 WBC (Bld) 0.4 % Normal 0.2-2.0 [facility] Comment on above: Performed By: #### C BC #### [facility] [address] [address] [address] Anup Paez EO # 0.0 103/ul Normal 0.0-0.7 [facility] Comment on above: Performed By: #### C BC #### [facility] [address] [address] [address] Anup Paez Eosinophils/100 WBC (Bld) 0.1 % Critically low 0.9-7.0 [facility] Comment on above: Performed By: #### C BC #### [facility] [address] [address] [address] Anup Paez Erythrocyte distribution width (RBC) [Ratio] 13.2 % Normal 11.0-15.0 [facility] Comment on above: Performed By: #### C BC #### [facility] [address] [place] [address] Dr. Anup Paez Hematocrit (Bld) [Volume fraction] 43.2 % Normal 42.0-54.0 [facility] Comment on above: Performed By: #### C BC #### [facility] [address] [place] [address] Dr. Anup Paez Hemoglobin (Bld) [Mass/Vol] 14.7 g/dL Normal 14.0-18.0 [facility] Comment on above: Performed By: #### C BC #### [facility] [address] [place] [address] Dr. Anup Paez IG # 0.03 10e3/ul Normal 0.00-0.03 [facility] Comment on above: Performed By: #### C BC #### [facility] [address] [place] [address] Dr. Anup Paez IG % 0.4 % Normal 0.0-0.5 [facility] Comment on above: Performed By: #### C BC #### [facility] [address] [place] [address] Dr. Anup Paez LYMPH # 1.2 103/ul Normal 1.2-3.8 [facility] Comment on above: Performed By: #### C BC #### [facility] [address] [place] [address] Dr. Anup Paez Lymphocytes/100 WBC (Bld) 14.8 % Critically low 20.5-60.0 [facility] Comment on above: Performed By: #### C BC #### [facility] [address] [place] [address] Dr. Anup Paez MANUAL DIFF REQ NO Normal [facility] Comment on above: Performed By: #### C BC #### [facility] [address] [place] [address] Dr. Anup Paez MCH (RBC) [Entitic mass] 30.3 pg Normal 25.9-34.0 [facility] Comment on above: Performed By: #### C BC #### [facility] [address] [address] [address] Anup Paez MCHC (RBC) [Mass/Vol] 34.0 g/dL Normal 29.9-35.2 [facility] Comment on above: Performed By: #### C BC #### [facility] [address] [address] [address] Anup Paez MCV (RBC) [Entitic vol] 89.1 fL Normal 80.0-94.0 [facility] Comment on above: Performed By: #### C BC #### [facility] [address] [address] [address] Anup Paez MONO # 0.5 103/ul Normal 0.3-0.8 [facility] Comment on above: Performed By: #### C BC #### [facility] [address] [place] [address] Dr. Anup Paez Monocytes/100 WBC (Bld) 5.5 % Normal 1.7-12.0 [facility] Comment on above: Performed By: #### C BC #### [facility] [address] [address] [address] Anup Paez NEUT # 6.6 103/ul Critically high 1.4-6.5 [facility] Comment on above: Performed By: #### C BC #### [facility] [address] [place] [address] Dr. Anup Paez Neutrophils/100 WBC (Bld) 78.8 % Critically high 43.0-75.0 [facility] Comment on above: Performed By: #### C BC #### [facility] [address] [address] [address] Anup Paez Platelet mean volume (Bld) [Entitic vol] 11.9 fL Normal 9.5-13.5 [facility] Comment on above: Performed By: #### C BC #### [facility] [address] [address] [address] Anup Paez PLT 140 103/ul Critically low 150-450 [facility] Comment on above: Performed By: #### C BC #### [facility] [address] [place] [address] Dr. Anup Paez RBC 4.85 106/ul Normal 4.70-6.10 [facility] Comment on above: Performed By: #### C BC #### [facility] [address] [place] [address] Dr. Anup Paez WBC 8.3 103/ul Normal 4.0-11.0 [facility] Comment on above: Performed By: #### C BC #### [facility] [address] [place] [address] Dr. Anup Paez FREE T3on 10-11-2022 FREE T3 2.36 pg/mlL Normal 2.18-3.98 [facility] Comment on above: Performed By: #### F T3 #### [facility] [address] [place] [address] Dr. Anup Paez FREE T4on 10-11-2022 Free T4 [Mass/Vol] 0.97 ng/dL Normal 0.76-1.46 [facility] Comment on above: Performed By: #### F T4 #### [facility] [address] [place] [address] Dr. Anup Paez TSHon 10-11-2022 TSH 0.231 uIU/mL Critically low 0.358-3.740 [facility] Comment on above: Performed By: #### T SH #### [facility] [address] [place] [address] Dr. Anup Paez CBC AUTO DIFFon 02-19-2022 BASO # 0.1 103/ul Normal 0.0-0.1 [facility] Comment on above: Performed By: #### C BC #### [facility] [address] [place] [address] Dr. Anup Paez Basophils/100 WBC (Bld) 1.1 % Normal 0.2-2.0 [facility] Comment on above: Performed By: #### C BC #### [facility] [address] [place] [address] Dr. Anup Paez EO # 0.2 103/ul Normal 0.0-0.7 [facility] Comment on above: Performed By: #### C BC #### [facility] [address] [place] [address] Dr. Anup Paez Eosinophils/100 WBC (Bld) 4.4 % Normal 0.9-7.0 [facility] Comment on above: Performed By: #### C BC #### [facility] [address] [place] [address] Dr. Anup Paez Erythrocyte distribution width (RBC) [Ratio] 12.9 % Normal 11.0-15.0 [facility] Comment on above: Performed By: #### C BC #### [facility] [address] [place] [address] Dr. Anup Paez Hematocrit (Bld) [Volume fraction] 44.4 % Normal 42.0-54.0 [facility] Comment on above: Performed By: #### C BC #### [facility] [address] [place] [address] Dr. Anup Paez Hemoglobin (Bld) [Mass/Vol] 14.4 g/dL Normal 14.0-18.0 [facility] Comment on above: Performed By: #### C BC #### [facility] [address] [place] [address] Dr. Anup Paez IG # 0.01 10e3/ul Normal 0.00-0.03 [facility] Comment on above: Performed By: #### C BC #### [facility] [address] [place] [address] Dr. Anup Paez IG % 0.2 % Normal 0.0-0.5 [facility] Comment on above: Performed By: #### C BC #### [facility] [address] [place] [address] Dr. Anup Paez LYMPH # 1.6 103/ul Normal 1.2-3.8 [facility] Comment on above: Performed By: #### C BC #### [facility] [address] [place] [address] Dr. Anup Paez Lymphocytes/100 WBC (Bld) 35.8 % Normal 20.5-60.0 [facility] Comment on above: Performed By: #### C BC #### [facility] [address] [place] [address] Dr. Anup Paez MANUAL DIFF REQ NO Normal [facility] Comment on above: Performed By: #### C BC #### [facility] [address] [place] [address] Dr. Anup Paez MCH (RBC) [Entitic mass] 30.1 pg Normal 25.9-34.0 [facility] Comment on above: Performed By: #### C BC #### [facility] [address] [place] [address] Dr. Anup Paez MCHC (RBC) [Mass/Vol] 32.4 g/dL Normal 29.9-35.2 [facility] Comment on above: Performed By: #### C BC #### [facility] [address] [place] [address] Dr. Anup Paez MCV (RBC) [Entitic vol] 92.7 fL Normal 80.0-94.0 [facility] Comment on above: Performed By: #### C BC #### [facility] [address] [place] [address] Dr. Anup Paez MONO # 0.5 103/ul Normal 0.3-0.8 [facility] Comment on above: Performed By: #### C BC #### [facility] [address] [place] [address] Dr. Anup Paez Monocytes/100 WBC (Bld) 11.6 % Normal 1.7-12.0 [facility] Comment on above: Performed By: #### C BC #### [facility] [address] [place] [address] Dr. Anup Paez NEUT # 2.1 103/ul Normal 1.4-6.5 [facility] Comment on above: Performed By: #### C BC #### [facility] [address] [place] [address] Dr. Anup Paez Neutrophils/100 WBC (Bld) 46.9 % Normal 43.0-75.0 [facility] Comment on above: Performed By: #### C BC #### [facility] [address] [address] [address] Anup Paez Platelet mean volume (Bld) [Entitic vol] 12.0 fL Normal 9.5-13.5 [facility] Comment on above: Performed By: #### C BC #### [facility] [address] [address] [address] Anup Paez PLT 107 103/ul Critically low 150-450 [facility] Comment on above: Performed By: #### C BC #### [facility] [address] [place] [address] Dr. Anup Paez RBC 4.79 106/ul Normal 4.70-6.10 [facility] Comment on above: Performed By: #### C BC #### [facility] [address] [place] [address] Dr. Anup Paez WBC 4.6 103/ul Normal 4.0-11.0 [facility] Comment on above: Performed By: #### C BC #### [facility] [address] [place] [address] Dr. Anup Paez LIPID PROFILEon 02-19-2022 CHOL-HDL RATIO NORM SEE BELOW Normal [facility] Comment on above: Result Comment: 3.3 - 4.4 LOW RISK 4.4 - 7.1 AVERAGE RISK 7.1 - 11.0 MODERATE RISK >11.0 HIGH RISK Performed By: #### C MP, LIPID #### [facility] [address] [place] [address] Dr. Anup Paez Cholesterol [Mass/Vol] 120 mg/dL Normal <=200 [facility] Comment on above: Performed By: #### C MP, LIPID #### [facility] [address] [place] [address] Dr. Anup Paez Cholesterol in HDL [Mass/Vol] 33 mg/dL Critically low 40-60 [facility] Comment on above: Performed By: #### C MP, LIPID #### [facility] [address] [place] [address] Dr. Anup Paez Cholesterol in LDL [Mass/Vol] 68.2 mg/dL Normal [facility] Comment on above: Performed By: #### C MP, LIPID #### [facility] [address] [place] [address] Dr. Anup Paez Cholesterol.total/C holesterol in HDL [Mass ratio] 3.6 {ratio} Normal [facility] Comment on above: Performed By: #### C MP, LIPID #### [facility] [address] [place] [address] Dr. Anup Paez HDL NORMAL > or = 60 mg/dl - LOW CARDIOVASCULAR RISK <40 mg/dl - HIGH CARDIOVASCULAR RISK Normal [facility] Comment on above: Performed By: #### C MP, LIPID #### [facility] [address] [place] [address] Dr. Anup Paez LDL CALC NORMAL SEE BELOW Normal [facility] Comment on above: Result Comment: <100 mg/dl OPTIMAL 100 - 129 mg/dl NEAR OR ABOVE OPTIMAL 130 - 159 mg/dl BORDERLINE HIGH 160 - 189 mg/dl HIGH >190 mg/dl VERY HIGH Performed By: #### C MP, LIPID #### [facility] [address] [place] [address] Dr. Anup Paez Triglyceride [Mass/Vol] 94 mg/dL Normal <=150 [facility] Comment on above: Performed By: #### C MP, LIPID #### [facility] [address] [place] [address] Dr. Anup Paez VLDL CALC 18.8 mg/dL Normal [facility] Comment on above: Performed By: #### C MP, LIPID #### [facility] [address] [place] [address] Dr. Anup Paez PROF 14(COMP METB)on 022 Albumin [Mass/Vol] 3.6 g/dL Normal 3.4-5.0 [facility] Comment on above: Performed By: #### C MP, LIPID #### [facility] [address] [place] [address] Dr. Anup Paez Albumin/Globulin [Mass ratio] 1.0 {ratio} Normal [facility] Comment on above: Performed By: #### C MP, LIPID #### [facility] [address] [place] [address] Dr. Anup Paez ALP [Catalytic activity/Vol] 97 U/L Normal 46-116 [facility] Comment on above: Performed By: #### C MP, LIPID #### [facility] [address] [address] [address] Anup Paez ALT [Catalytic activity/Vol] 33 U/L Normal 16-63 [facility] Comment on above: Performed By: #### C MP, LIPID #### [facility] [address] [address] [address] Anup Paez Anion gap [Moles/Vol] 11.5 mmol/L Normal [facility] Comment on above: Performed By: #### C MP, LIPID #### [facility] [address] [address] [address] Anup Paez AST [Catalytic activity/Vol] 21 U/L Normal 15-37 [facility] Comment on above: Performed By: #### C MP, LIPID #### [facility] [address] [address] [address] Anup Paez Bilirubin [Mass/Vol] 0.4 mg/dL Normal 0.2-1.0 [facility] Comment on above: Performed By: #### C MP, LIPID #### [facility] [address] [place] [address] Dr. Anup Paez Calcium [Mass/Vol] 8.5 mg/dL Normal 8.5-10.1 [facility] Comment on above: Performed By: #### C MP, LIPID #### [facility] [address] [place] [address] Dr. Anup Paez Chloride [Moles/Vol] 106 mmol/L Normal 98-107 [facility] Comment on above: Performed By: #### C MP, LIPID #### [facility] [address] [address] [address] Anup Paez CO2 [Moles/Vol] 26.3 mmol/L Normal 21.0-32.0 [facility] Comment on above: Performed By: #### C MP, LIPID #### [facility] [address] [place] [address] Dr. Anup Paez Creatinine [Mass/Vol] 1.26 mg/dL Normal 0.70-1.30 [facility] Comment on above: Performed By: #### C MP, LIPID #### [facility] [address] [place] [address] Dr. Anup Paez EGFR-AF BRUNEIAN >60 Normal >=60 [facility] Comment on above: Performed By: #### C MP, LIPID #### [facility] [address] [address] [address] Anup Paez EGFR-NON AF BRUNEIAN 57 mL/min/1.73m2 Critically low >=60 [facility] Comment on above: Performed By: #### C MP, LIPID #### [facility] [address] [place] [address] Dr. Anup Paez Globulin (S) [Mass/Vol] 3.6 g/dL Normal [facility] Comment on above: Performed By: #### C MP, LIPID #### [facility] [address] [place] [address] Dr. Anup Paez Glucose [Mass/Vol] 95 mg/dL Normal 74-106 [facility] Comment on above: Performed By: #### C MP, LIPID #### [facility] [address] [place] [address] Dr. Anup Paez Potassium [Moles/Vol] 3.8 mmol/L Normal 3.5-5.1 [facility] Comment on above: Performed By: #### C MP, LIPID #### [facility] [address] [place] [address] Dr. Anup Paez Protein [Mass/Vol] 7.2 g/dL Normal 6.4-8.2 [facility] Comment on above: Performed By: #### C MP, LIPID #### [facility] [address] [place] [address] Dr. Anup Paez Sodium [Moles/Vol] 140 mmol/L Normal 136-145 [facility] Comment on above: Performed By: #### C MP, LIPID #### [facility] [address] [place] [address] Dr. Anup Paez Urea nitrogen [Mass/Vol] 16.0 mg/dL Normal 7.0-18.0 [facility] Comment on above: Performed By: #### C MP, LIPID #### [facility] [address] [place], [place] [address] Dr. Anup Paez Urea nitrogen/Creatinine [Mass ratio] 12.7 mg/mg Normal [facility] Comment on above: Performed By: #### C MP, LIPID #### [facility] [address] [place], [place] [address] Dr. Anup Paez PSA Total (Not a Screen)on 0 04-01-2021 PSA Total (Not a Screen) 0.620 ng/mL Normal 0.000-4.000 [facility] Comment on above: Result Comment: PERF ORMED BY: [place] [address] PATHOLOGIST MEDICATION MANAGER MARITZA MONTANO M.D. Performed By: #### P SATOTAL #### [address] XR ankle LT min 3V*on 2020 XR ankle LT min 3V* [facility] Main [place] [address] [place] [address] XRay Report Signed Patient: Maximino Clarke MR#: [id number] : 1955 Acct:[id number] Age/Sex: 65 / M ADM Date: 01/11/21 Loc: XDUCLY Room: Type: [facility] Attending Dr: Ailin PARRA Ordering Provider: AILIN [...] Dinora Brink M.D.01/11/2021 12:35 PM Dictation Location: [place] [address] Transcribed By: JAVIER 01/11/21 1235 Dictated By: Dinora Brink MD 01/11/21 1234 Signed By: 01/11/21 1235 [facility] Pulmonary Functionon 020 Pulmonary Function MR #: [id number] [facility] PT. Name: Maximino Clakre Date: 08/14/2020 Date of : 1955 Patient [...] Scruggs MD Date Trans: 08/23/2020 05:28 P/ DIMITRIOS_JN:[id number] cc: Johanna Blandon M.D. [address] [place] [id number] Normal [facility] ARTERIAL BLOOD GAS W/COOXon 08-14-2020 BASE EXCESS 0 mmol/L Normal -2-3 [facility] Comment on above: Performed By: #### 4 0055 #### [facility] [address] [place] [address], [facility] COHB 1.2 % Normal 0.0-1.5 [facility] Comment on above: Performed By: #### 4 0055 #### [facility] [address] [place] [address], [facility] [employer] ROOM AIR Normal [facility] Comment on above: Performed By: #### 4 0055 #### [facility] [address] [place] [address], [place] FIO2 0 % Normal [facility] Comment on above: Performed By: #### 4 0055 #### [facility] [address] [place] [address], [place] HCO3 (Bld) [Moles/Vol] 23 mmol/L Normal 21-28 [facility] Comment on above: Performed By: #### 4 0055 #### [facility] [address] [place] [address], [place] METHB 1.0 % Normal 0.0-1.5 [facility] Comment on above: Performed By: #### 4 0055 #### [facility] [address] [place] [address], [place] Oxygen (Bld) [Partial pressure] 88 mm[Hg] Normal 83-108 [facility] Comment on above: Performed By: #### 4 0055 #### [facility] [address] Oxygen saturation in Blood 95.5 % Normal 94.0-97.0 [facility] Comment on above: Performed By: #### 4 0055 #### [facility] [address] [place] [address], [facility] PCO2 32 mmHg Low 35-45 [facility] Comment on above: Performed By: #### 4 0055 #### [facility] [address] [place] [address], [facility] HOSPITAL pH (Bld) 7.46 [pH] High 7.35-7.45 [facility] Comment on above: Performed By: #### 4 0055 #### [facility] [address] THB 12.0 g/dL Normal 12.0-16.3 [facility] Comment on above: Performed By: #### 4 0055 #### [facility] [address] Pulmonary Functionon 020 Pulmonary Function MR #: [id number] [facility] PT. Name: Maximino Clarke Date: 05/11/2020 Date [...] Scruggs MD Date Trans: 05/23/2020 05:08 P/ DN_JN:[id number] cc: Johanna Blandon M.D. [address] [place] [id number] Normal [facility] ARTERIAL BLOOD GAS W/COOXon 05-11-2020 BASE EXCESS -1 mmol/L Normal -2-3 [facility] Comment on above: Performed By: #### 4 0055 #### [facility] [address] [place] [address], [facility] COHB 1.5 % Normal 0.0-1.5 [facility] Comment on above: Performed By: #### 4 0055 #### [facility] [address] [place] [address], [facility] [employer] RA Normal [facility] Comment on above: Performed By: #### 4 0055 #### [facility] [address] [place] [address], [facility] FIO2 0 % Normal [facility] Comment on above: Performed By: #### 4 0055 #### [facility] [address] [place] [address], [facility] HCO3 (Bld) [Moles/Vol] 22 mmol/L Normal 21-28 [facility] Comment on above: Performed By: #### 4 0055 #### [facility] [address] [place] [address], [facility] METHB 1.0 % Normal 0.0-1.5 [facility] Comment on above: Performed By: #### 4 0055 #### [facility] [address] [place] [address], [facility] Oxygen (Bld) [Partial pressure] 95 mm[Hg] Normal 83-108 [facility] Comment on above: Performed By: #### 4 0055 #### [facility] [address] [place] [address], [facility] Oxygen saturation in Blood 96.5 % Normal 94.0-97.0 [facility] Comment on above: Performed By: #### 4 0055 #### [facility] [address] [place] [address], [facility] PCO2 31 mmHg Low 35-45 [facility] Comment on above: Performed By: #### 4 0055 #### [facility] [address] [place] [address], [facility] pH (Bld) 7.46 [pH] High 7.35-7.45 [facility] Comment on above: Performed By: #### 4 0055 #### [facility] [address] [place] [address], [place] THB 12.2 g/dL Normal 12.0-16.3 [facility] Comment on above: Performed By: #### 4 0055 #### [facility] [address] [place] [address], [facility] *SARS-CoV-2 COVID-19on 05-08 [id number] Not Detected Normal Not Detected [facility] Comment on above: Order Comment: The A ptima SARS-CoV-2 assay is a nucleic acid amplification test intended for the qualitative detection of RNA from SARS-CoV-2 isolated and purified from nasopharyngeal (WEATHER STRIP INSTALLER),oropharyngeal (OP), nasal swab, sputum, and bronchoalveolar lavage (BAL) specimens from patients with signs and symptoms of infection who are suspected of COVID-19. Results are for the identification of SARS-CoV-2 RNA. The SARS-CoV-2 RNA is generally detectable during the acute phase of infection. The Aptima SARS-CoV-2 Assay on the [employer] system is intended for use by laboratory personnel specifically instructed and trained in the operation of the [employer] system. The Aptima SARS-CoV-2 assay is [...] information. Performed By: #### 3 1792 #### [address] CHEST HIGH RESOLUTION WIT HOUT CONTRASTon 04-22-2020 CT CHEST HIGH RESOLUTION WITHOUT CONTRAST [facility] Department of Radiology [address] [place] [id number] Patient Name: MAXIMINO CLARKE : 1955 Sex: M Age: Race: Black Pt. Location: [facility] Patient Status: O Ordered Date: 03/20/2020 1:35:00 PM Completed Date: 04/22/2020 09:10 AM Requesting Provider: NICKY BORDEN Attending Provider: NICKY BORDEN Report Copy To: JOHANNA BLANDON Signs & Symptoms: J84.9 Interstitial pulmonary disease, unspecified I10 History: [facility] [address] ct chest. auth#[id number] valid 03/24-06/24/2020 phone: [phone] No to all COVID questions - jlr [...] achievable Electronically signed: Ana Dhillon. Transcribed by: [email or web address], User Resident: Electronically Signed by: ANA DHILLON @ 04/22/2020 12:42 PM Normal [facility] Comment on above: Order Comment: Brian cols: inspiratory and excpiratory films for air trapping *SARS-CoV-2 COVID-19on 03-19 [id number] Not Detected Normal Not Detected [facility] Comment on above: Order Comment: The A ptima SARS-CoV-2 assay is a nucleic acid amplification test intended for the qualitative detection of RNA from SARS-CoV-2 isolated and purified from nasopharyngeal (WEATHER STRIP INSTALLER), nasal and oropharyngeal (OP) swab specimens from patients with signs and symptoms of infection who are suspected of COVID-19. Results are for the identification of SARS-CoV-2 RNA. The SARS-CoV-2 RNA is generally detectable in nasopharyngeal and oropharyngeal swabs during the acute phase of infection. The Aptima SARS-CoV-2 Assay on the [employer] system is intended for use by laboratory personnel specifically instructed and trained in the operation of the [employer] system. The Aptima SARS-CoV-2 assay is [...] information. Performed By: #### 3 1792 #### [facility] [address] [place], [place] [id number] [place] [address] Pulmonary Functionon 03-10-2 020 Pulmonary Function MR #: [id number] [facility] PT. Name: Maximino Clarke Date: 01/25/2019 Date [...] with the resident's interpretation. Date Dict: 12/10/2019/12:08 Carlin/Masha Mcdermott MD Date Trans: 12/10/2019 12:08 Carlin/ DIMITRIOS_JN:[id number] cc: Johanna Blandon M.D. [address] [place] [phone] [place] [facility] Vital Signs Date Time Vital Sign Value Performing Clinician Yassinei katie 07-14-2023 13:35-0400 Diastolic blood pressure 108 mm[Hg] Mary Ellen Emilee [facility] 07-14-2023 13:35-0400 Mean blood pressure 125 mm[Hg] Mary Ellen Emilee [facility] 07-14-2023 13:35-0400 Systolic blood pressure 158 mm[Hg] Mary Ellen Emilee [facility] 11-22-2022 15:37-0500 Blood Pressure Location Grzegorz NILL [facility] 11-22-2022 15:37-0500 Diastolic blood pressure 90 mm[Hg] Grzegorz NILL [facility] 11-22-2022 15:37-0500 Heart rate 68 /min Grzegorz NILL [facility] 11-22-2022 15:37-0500 Respiratory rate 16 /min Grzegorz NILL [facility] [place] 11-22-2022 15:37-0500 Systolic blood pressure 126 mm[Hg] Grzegorz NILL [facility] [place] Encounters Encounter Date Encounter Type Care Provider Facility Start: 10-06-2023 End: 10-06-2023 ambulatory [facility] Start: 08-30-2023 End: 08-31-2023 ambulatory Mary Ellen L Emilee Facility:[facility] Start: 07-14-2023 End: 07-15-2023 ambulatory Mary Ellen L [facility]ilee [place] Start: 07-14-2023 End: 07-14-2023 Lab Drop off Mary Ellen L Emilee [facility] Start: 02-08-2023 ambulatory Mary Ellen Emilee Facility:[facility] [place] Start: 12-28-2022 End: 12-29-2022 ambulatory Grzegorz R NILL Facility: [facility] Start: 12-28-2022 End: 12-28-2022 Patient encounter procedure Grzegorz R NILL [facility] [place] Start: 12-14-2022 End: 12-15-[address] JOHANNA BLANDON . Facility: Start: 11-22-2022 End: 11-23-2022 ambulatory Grzegorz R NILL Facility: [facility] Start: 11-22-2022 End: 11-22-2022 Patient encounter procedure Grzegorz R NILL [facility] Start: 10-12-2022 ambulatory JOHANNA BLANDON Facility:[facility] Start: 10-11-2022 End: 10-12-[address] JOHANNA BLANDON . Facility: Start: 02-24-2022 Encounter for genera l adult medical examination without abnormal findings DR JOHANNA BLANDON . [facility] Start: 02-19-2022 End: 02-20-[address] JOHANNA BLANDON . Facility: Start: 02-19-2022 End: 02-20-2022 Encounter for general adult medical examination without abnormal findings DR JOHANNA BLANDON . Facility: Procedures Date Procedure Procedure Detail Performing Clinician Start: 12-14-2022 Colonoscopy Grzegorz NI LL Start: 02-19-[address] JOHANNA FRASERT . Comment on above: Performed By: #### [facility] #### [facility] [address] [place] [address] Dr. Anup Paez Start: 04-29-2019 Transrectal biopsy o f prostate using ultrasound guidance Grzegorz BUSTILLO Start: 07-17-2017 Cystoscopy w/UD Grzegorz ORTIZL Start: 04-09-2014 Cystoscopy Grzegorz NI LL Comment on above: w/green light laser of prostate Start: 09-11-2013 Colonoscopy Grzegorz NI LL Cardiac catheterization Mateus ael NILL Cardiac Stent Grzegorz NILL Fluid Removed from Lungs Jax hael NILL Partial resection of colon M humphrey NILL Plan of Treatment Date Care Activity Detail Author Start: 12-04-2023 ambulatory Ambulatory Facility:[facility] Start: 10-13-2023 ambulatory Ambulatory Facility:[facility] [place] Immunizations Immunization Date Immunization Notes Care Provider Fa teodoro 06-09-2022 influenza virus vaccine, unspecified formulation Grzegorz BUSTILLO [facility] [place] 09-21-2021 SARS-CoV-2 (COVID-19 ) mRNA BNT-162b2 vax Grzegorz ORTIZL [facility] [place] 01-05-2021 SARS-CoV-2 (COVID-19 ) mRNA BNT-162b2 vax Grzegorz ORTIZL [facility] [place] 12-14-2020 SARS-CoV-2 (COVID-19 ) mRNA BNT-162b2 vax Grzegorz ORTIZL [facility] [place] Payers Date Payer Category Payer Medicare [id number] 2022 Self-pay 1959 Medicare [id number] 1959 Unknown [id number] 1959 Unknown [id number] 1955 Unknown [id number] 2.16.84 [id number] 1955 Unknown [id number] 2.16.84 [id number] 1955 Unknown [id number] 2.16.84 [id number] 1955 Unknown [id number] 2.16.8 [id number] 1955 Unknown [id number] 2.16.8 [id number] 1957 Unknown [id number] 2.16.8 40.1.077021.3.579.2.727 1957 Unknown [id number] 2.16.8 40.1.359438.3.579.2.727 1955 Unknown [id number] 2.16.8 40.1.101374.3.579.2.727 1957 Unknown [id number] 2.16.8 [id number] 1957 Unknown [id number] 2.16.8 40.1.606940.3.579.2.727 1957 Unknown [id number] 2.16.8 [id number] 1955 Unknown [id number] 2.16.8 [id number] Social History Date Type Detail Facility Start: 11-22-2022 End: 07-14-2023 Tobacco smoking status Never smoked tobacco (finding) [facility] [place] Tobacco smoking status Never Gener al [facility] Sex Assigned At Male [facility] Functional Status Date Assessment Result Facility 11-22-2022 Functional Status N/A [facility] Progress note 10-06-2023 Note Date & Type Note Facility 10-06-2023 Note Cardiology Clinic No te Chief Complaint: chest pain HPI: Maximino Clarke is a 68 y.o. male Placed medical history including hypertension, hyperlipidemia, and CAD with PCI in 2010. He presents to cardiology clinic to establish care. Patient reports that he has been having some chest pain and shortness of breath over the past few months. Chest pain is somewhat atypical in nature. It occurs both at rest and with exertion, and is not always worsened with exertion. Shortness of breath seems to be worse when he is climbing stairs. He denies any lower extreme edema, orthopnea, paroxysmal nocturnal dyspnea. No near-syncope or syncope. Cardiology ROS: GENERAL: Denies fever, chills, night sweats, weight loss. HEENT: Denies changes in vision, photophobia, changes in hearing, epistaxis, oral bleeding. CARDIOVASCULAR: Per HPI RESPIRATORY: Denies SOB, coughing, wheezing GI: Denies abdominal pain, nausea/vomiting, heartburn, melena/hematochezia. RENAL: Denies dysuria, hematuria, flank pain. MSK: Denies muscle weakness/pain, arthralgias/joint pain. NEUROLOGIC: Denies LOC, weakness, numbness, headaches. SKIN: Denies abnormal rashes or bleeding. PSYCH: Denies significant anxiety, depression, sleep disturbances. Past Medical History He has a past medical history of Coronary artery disease and Hypertension. Surgical History He has a past surgical history that includes Cardiac catheterization and Coronary stent placement. Social History He reports that he has never smoked. He has never used smokeless tobacco. He reports current alcohol use. No history on file for drug use. Family History Family History Problem Relation Name Age of Onset Hypertension Mother Cancer Mother Medications Current Outpatient Medications on File Prior to Visit Medication Sig Dispense Refill albuterol 90 mcg/actuation inhaler INL 2 PFS PO Q 6 H PRN FOR SHORTNESS OF BREATH OR WHEEZING aspirin 81 mg EC tablet Take 1 tablet by mouth in the morning. cholecalciferol (Vitamin D-3) 25 MCG (1000 UT) capsule Take 1 capsule every day by oral route. losartan-hydrochlorothiazide (Hyzaar) 100-12.5 mg tablet Take 1 tablet by mouth in the morning. pravastatin (Pravachol) 20 mg tablet Take 1 tablet by mouth at bedtime. predniSONE (Deltasone) 10 mg tablet Take 10 mg by mouth if needed. Pulmicort Flexhaler 90 mcg/actuation inhaler Inhale 1 puff in the morning and at bedtime. No current facility-administered medications on file prior to visit. Allergies Patient has no known allergies. Physical Exam VITAL SIGNS: BP (!) 156/95 (BP Location: Left arm, Patient Position: Sitting) Pulse 86 Ht 1.727 m (5' 8 ) Wt 90.7 kg (200 lb) SpO2 97% BMI 30.41 kg/m??? Constitutional: Well developed, Well nourished, No acute distress, Non-toxic appearance. HENT: Normocephalic, Atraumatic, Bilateral external ears have normal appearance, Nose appears normal, nares are patent. Eyes: PERRLA, EOMI, Conjunctiva normal, No discharge. Neck: Normal range of motion, No tenderness, Supple, No stridor. No cervical lymphadenopathy noted. Cardiovascular: Normal heart rate, Normal rhythm, No murmurs, No rubs, No gallops. Thorax & Lungs: Normal breath sounds, No respiratory distress, No wheezing, No chest tenderness to palpation. Abdomen: Bowel sounds normal, Soft, Nontender, No masses, No pulsatile masses. Skin: Warm, Dry, No erythema, No rash. Back: No tenderness, No CVA tenderness. Extremities: Intact distal pulses, No edema, No tenderness, No cyanosis, No clubbing. Musculoskeletal: Grossly normal strength in extremities Neurologic: Alert & oriented x 3, no gross focal neurological deficits Psychiatric: Affect normal, Judgment normal, Mood normal. EKG results: No results found for this or any previous visit (from the past 4464 hour(s)). Echo results: No echocardiogram results found for the past 12 months Radiology: CT chest wo IV contrast Narrative: [facility] Department of Radiology [address] [place] [phone] Patient Name: MAXIMINO CLARKE : 1955 Sex: M Age: Race: Black^Black/ Pt. Location: [facility] Patient Status: O Ordered Date: 03/20/2020 1:35:00 PM Completed Date: 04/22/2020 09:10 AM Requesting Provider: NICKY BORDEN Attending Provider: NICKY BORDEN Report Copy To: JOHANNA BLANDON Signs & Symptoms: J84.9 Interstitial pulmonary disease, unspecified I10 History: [facility] with [facility] [address] ct chest. auth#[id number] valid 03/24-06/24/2020 phone: [phone] No to all COVID questions - jlr Comments: Protocols: inspiratory and excpiratory films for air trapping Exam: CT CHEST HIGH RESOLUTION WITHOUT CONTRAST (more content not included)... [facility] Progress note 10-06-2023 Note Date & Type Note Facility 10-06-2023 Note New patient here to establish care. Ref from Dr. Barlow for CAD. Underwent PCI at [facility] in April 2011. He has been having chest pain the past few months, which occurs with rest. He gets SOB only with stairs and/or elevation. Denies palpitations and lightheadedness. Review of Systems Cardiovascular: Positive for chest pain and dyspnea on exertion. All other systems reviewed and are negative. [facility] Clinical Note 12-14-2022 Note Date & Type [...] good condition. CC: Johanna Blandon M.D. [facility] Clinical Note 11-22-2022 Note Date & Type [...] Tobacco Never (less (more content not included)... [facility] Comment on above: Result Comment: Elec tronically Signed By: DANNA DHALIWAL, Grzegorz [place]\Date and Time Signed: 11/22/22 16:23 EST Evaluation + Plan note Note Date & Type Note Facility Evaluation + Plan note No data available for this section [facility] [place] Evaluation + Plan note Note Date & Type Note Facility Evaluation + Plan note Future Appointments Appointment Date:10/13/2023 01:00:00 PM Scheduled Provider:Mary Ellen Dela Cruz Location:[facility] Appointment Type:[facility] Hospital Discharge instructions Note Date & Type Note Facility Hospital Discharge instructions No data available for this section [facility] [place] Progress note Note Date & Type Note Facility Progress note No data available for this section [facility] [place] Summary Purpose Family History No Family History [...] section and content) DATE CREATED AUTHOR 09/11/2020 [facility] DATE CREATED AUTHOR AUTHOR'S ORGANIZ ATION 11/20/2021 [facility] DATE CREATED AUTHOR AUTHOR'S ORGANIZ ATION 12/21/2022 [facility] DATE CREATED AUTHOR AUTHOR'S ORGANIZ ATION 09/12/2023 [facility] DATE CREATED AUTHOR AUTHOR'S SHAKA KING 10/26/2023 [facility] Patient Care team bonilla n (unrecognized section and content) Personnel Name: JOHANNA BLANDON MD Address: Address: [address] [place] [address] Personnel Name: JOHANNA BLANDON MD Address: Address: [address] [place] [address] Personnel Name: Mary Ellen Dela Cruz Address: Address: [address] [place] [address]- FOR RECORDS PERTAINING TO PATIENTS WHO ARE [...] BE BASED ON THE PRIMARY CLINICAL RECORDS. [employer] provides no warranty or guarantee of the accuracy or completeness of information in this document.
== END 2023-11-13 08:17 | disposition home or self-care (01) ==
LOC: NM 08:17
PROVIDERS: PCP Internal Medicine; Visit Provider Internal Medicine Cardiovascular Disease
DX: R07.9 Chest pain, unspecified (principal)
CPT/HCPCS: 78452; 93017; A9500

== ENCOUNTER 2024-01-03 09:46 | Outpatient (OUT) | payer OTHER, MEDICARE, SELFPAY ==
--- NOTE | 2024-01-03 09:50 | US_ITS ---
The [address] [address] Patient Name: MAXIMINO CLARKE MRN: [id number] date: 1955 Sex: M Assigned Patient Location: US Current Patient Location: US Accession/Order Number: [id number] Exam Date: 01/03/2024 09:51 Report Date: 01/03/2024 11:13 At the request of: STEFFANIE WAGNER Procedure: US abdomen complete EXAMINATION: US abdomen complete, US aorta HISTORY: abdominal pain, r/o AAA , chest pain COMPARISON: CT chest 11/12/2020 TECHNIQUE: High resolution sonographic examination of the abdomen was performed. FINDINGS: LIVER: Normal. Normal size and echotexture. No significant masses. Normal waveform and flow within portal vein, 11 cm/s BILIARY: Numerous 1 cm stones partially filling the gallbladder. No wall thickening, free fluid, or abnormal duct dilation. Negative sonographic Cordova's sign. PANCREAS: Several complex cystic structures within the neck/body of pancreas, largest is 2.0 x 1.3 x 1.0 cm. SPLEEN: Normal. Normal size and echotexture. KIDNEYS: Nonobstructing 5 mm stone within right kidney and incidental small benign-appearing cysts. Unremarkable left kidney. AORTA/VASCULAR: Normal waveform and flow; 48 cm/s within proximal aorta. No aneurysm or dissection. Patent IVC. OTHER: Negative. US/US abdomen complete IMPRESSION: 1. No aortic aneurysm or dissection. 2. Patent IVC. 3. Cholelithiasis without ultrasound evidence of acute cholecystitis. 4. Nonspecific complex cysts within the neck/body of the pancreas. Small cyst was seen within this area on a 11/12/2020 CT Chest study, but was only partially included. Consider CT abdomen without and with IV contrast for further characterization. Electronically authenticated by: EMMANUEL LEE Date: 01/03/2024 11:13
--- NOTE | 2024-01-03 09:51 | US_ITS ---
[address] [address] Patient Name: MAXIMINO CLARKE MRN: [id number] date: 1955 Sex: M Assigned Patient Location: US Current Patient Location: US Accession/Order Number: [id number] Exam Date: 01/03/2024 09:51 Report Date: 01/03/2024 11:13 At the request of: STEFFANIE WAGNER Procedure: US aorta EXAMINATION: US abdomen complete, US aorta HISTORY: abdominal pain, r/o AAA , chest pain COMPARISON: CT chest 11/12/2020 TECHNIQUE: High resolution sonographic examination of the abdomen was performed. FINDINGS: LIVER: Normal. Normal size and echotexture. No significant masses. Normal waveform and flow within portal vein, 11 cm/s BILIARY: Numerous 1 cm stones partially filling the gallbladder. No wall thickening, free fluid, or abnormal duct dilation. Negative sonographic Cordova's sign. PANCREAS: Several complex cystic structures within the neck/body of pancreas, largest is 2.0 x 1.3 x 1.0 cm. SPLEEN: Normal. Normal size and echotexture. KIDNEYS: Nonobstructing 5 mm stone within right kidney and incidental small benign-appearing cysts. Unremarkable left kidney. AORTA/VASCULAR: Normal waveform and flow; 48 cm/s within proximal aorta. No aneurysm or dissection. Patent IVC. OTHER: Negative. US/US aorta IMPRESSION: 1. No aortic aneurysm or dissection. 2. Patent IVC. 3. Cholelithiasis without ultrasound evidence of acute cholecystitis. 4. Nonspecific complex cysts within the neck/body of the pancreas. Small cyst was seen within this area on a 11/12/2020 CT Chest study, but was only partially included. Consider CT abdomen without and with IV contrast for further characterization. Electronically authenticated by: EMMANUEL LEE Date: 01/03/2024 11:13
--- OUTSIDE RECORDS SUMMARY | 2024-01-03 09:59 | XMS_ITS | CCD ---
Author Organization [facility] Care Team Providers Care Manufacturing Controller Name Role Phone JOHANNA BLANDON Primary Care Physician AMIRA ., DR JOHANNA Reyes Primary Care Unavailable [...] Care Unavailable JOHANNA BLANDON Primary Care Physician [phone] Mary Ellen Hebert Primary Care Physician [phone] KAT VASQUEZ Attending Unavailable KAT VASQUEZ Attending Unavailable EmileeMary Ellen Attending Unavailable EmileeMary Ellen Attending Unavailable Jim BAH Attending Unavailable Jim BAH Attending Unavailable EmileeMary Ellen gibson Admitting Unavailable EmileeMary Ellen Attending Unavailable EmileeMary Ellen Attending Unavailable EmileeMary Ellen Attending Unavailable EmileeMary Ellen Attending Unavailable Allergies Allergy Classification Reported Allergen(s) Allergy Type Date of Onset Reaction(s) Facility (1 source) No Known Medication Allergies; 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: [No Known Medication Allergies] Propensity to adverse reactions (disorder) [facility] Repository Medications Current Medications Medication Drug Class(es) Dates Sig (Normalized) Sig (Original) albuterol 0.83 mg/ml inhalation solution (2 sources) beta2-Adrenergic Agonist Start: 07-14-2023 take 2.5 mg by inhalation every six hours albuterol 0.083% Inh Anne 3 mL 2.5 mg, 3 mL, NEB, q6hr, Refill(s) 0 Start Date: 07/14/23 Status: Ordered 24 hr alfuzosin hydrochloride 10 mg extended release oral tablet (1 source) alpha-Adrenergic Gurpreet Start: 12-04-2023 take 1 tablet by mouth once daily alfuzosin 10 mg ER Tab 10 mg = 1 tab(s), Oral, Daily, # 30 tab(s), Refills(s) 11, [id number], 174, cm, 12/04/23 9:07:00 EST, Height/Length Dosing, 90, kg, 12/04/23 9:07:00 EST, Weight Dosing Start Date: 12/04/23 Status: Ordered Aspirin (4 sources) Platelet Aggregation Inhibitor, Nonsteroidal Anti-inflammatory Drug Start: 04-25-2019 aspirin 81 mg, Chewed, Daily Start Date: 04/25/19 Status: Ordered 60 actuat budesonide 0.09 mg/actuat dry powder inhaler (2 sources) Corticosteroid Start: 07-14-2023 Pulmicort Flexhaler 90 mcg/inh inhalation powder 1 inh, Inhalation, BID, 1 EA, Refill(s) 11, [facility] #[id number], 172.7, cm, 07/14/23 13:11:00 EDT, Height/Length Dosing, 92, kg, 07/14/23 13:11:00 EDT, Weight Dosing Start Date: 07/14/23 Status: Ordered carvedilol 6.25 mg oral tablet (1 source) alpha-Adrenergic Gurpreet, beta-Adrenergic Gurpreet Start: 10-13-2023 take 1 tablet by mouth twice daily carvedilol 6.25 mg Tab 6.25 mg = 1 tab(s), Oral, BID, Refills(s) 0 Start Date: 10/13/23 Status: Ordered D3 1000 intl units (25 mcg) oral tablet (2 sources) Start: 07-14-2023 take 1 tablet by mouth [...] for 30 day(s), 30 tab(s), [facility](s) 0, [id number], 172.7, cm, 11/22/22 15:44:00 EST, Height/Length Dosing, [...] Oral, Daily Start Date: 04/25/19 Status: Ordered rosuvastatin calcium 20 mg oral tablet (1 source) HMG-CoA Reductase Inhibitor Start: 10-13-2023 take 1 tablet by mouth once daily rosuvastatin 20 mg Tab 20 mg = 1 tab(s), Oral, Daily, Refills(s) 0 Start Date: 10/13/23 Status: Ordered Completed/Discontinued Medications Medication Drug Class(es) Dates Sig (Normalized) Sig (Original) predniSONE 10 mg oral tablet (1 source) Start: 07-14-2023 predniSONE 10 mg Tab 90 EA, 0 Refill(s), TAKE 1 TABLET BY MOUTH EVERY MORNING, Refills(s) 0 Start Date: 07/14/23 Status: Ordered Problems Active Problems Problem Classification Problem Date Documented Da te Episodic/Chronic Aortic; peripheral; and visceral artery aneurysms (2 sources) Aortic ectasia, unspecified site; 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: [Aortic ectasia, unspecified site] Onset: 12-08-2023 Chronic Biliary tract disease (4 sources) Gallstone 04-25-2019 Episodic Chronic obstructive pulmonary disease and bronchiectasis (9 sources) Chronic obstructive lung disease; 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: [Pulmonary emphysema] Onset: 12-21-2022 11-03-2022 Chronic Coronary atherosclerosis and other heart disease (5 sources) Coronary arteriosclerosis; 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: [Atherosclerotic heart disease of [place] coronary artery without angina pectoris] Onset: 12-21-2022 04-25-2019 Chronic Coronary atherosclerosis and other heart disease (1 source) Presence of coronary angioplasty implant and graft; 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: [PRESENCE COR ANGPLSTY IMPLANT AND GRAFT] Onset: 12-21-2022 Episodic Disorders of lipid metabolism (5 sources) Hyperlipidemia; 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: [Hyperlipidemia, unspecified] Onset: 12-21-2022 04-25-2019 Chronic Diverticulosis and diverticulitis (1 source) Diverticulosis of large intestine without perforation or abscess without bleeding; 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: [DVRTCLOS LG INT NO PERF/ABSC W/O BL] Onset: 12-21-2022 Chronic Essential hypertension (5 sources) Hypertensive disorder; 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: [Essential (primary) hypertension] Onset: 12-21-2022 04-25-2019 Chronic Gastrointestinal hemorrhage (15 sources) Melena; 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: [Melena] Onset: 11-22-2022 Episodic Genitourinary symptoms and ill-defined conditions (18 sources) Ronny hematuria; 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: [Nocturia] Onset: 12-21-2022 05-13-2019 Episodic Headache; including migraine (1 source) Headache 08-30-2023 Episodic Hyperplasia of prostate (6 sources) Benign prostatic hypertrophy with outflow obstruction; 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: [Benign prostatic hyperplasia with lower urinary tract symptoms] Onset: 12-21-2022 05-04-2020 Chronic Hypertension with complications and secondary hypertension (2 sources) Hypertensive heart disease without heart failure; 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: [Hypertensive heart disease without heart failure] Onset: 12-08-2023 Chronic Malaise and fatigue (4 sources) Chronic fatigue syndrome 11-03-2022 Chronic Malaise and fatigue (3 sources) Other fatigue; 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: [Fatigue] Onset: 10-13-2022 07-14-2023 Episodic Noninfectious gastroenteritis (1 source) Noninfective gastroenteritis and colitis, unspecified; 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: [NONINFECTIVE GE AND COLITIS UNS] Onset: 12-21-2022 Episodic Nonspecific chest pain (2 sources) Chest pain, unspecified; 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: [Chest pain, unspecified] Onset: 10-06-2023 Episodic Other aftercare (1 source) retirement (current) use of aspirin; 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: [SKILLED NURSING CURRENT USE OF ASPIRIN] Onset: 12-21-2022 Episodic Other lower respiratory disease (4 sources) Fibrosis of lung 11-03-2022 Chronic Other lower respiratory disease (1 source) Cough 08-30-2023 Episodic Other nutritional; endocrine; and metabolic disorders (4 sources) Body mass index 30+ - obesity 11-22-2022 Chronic Other screening for suspected conditions (not mental disorders or infectious disease) (9 sources) Raised prostate specific antigen; 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: [Decreased testosterone level ] Onset: 02-24-2022 05-04-2020 Episodic Other upper respiratory infections (1 source) Sore throat symptom 08-30-2023 Episodic Otitis media and related conditions (1 source) Otitis media of right ear 08-30-2023 Episodic Pneumonia (except that caused by tuberculosis or sexually transmitted disease) (5 sources) Legionella pneumonia; 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: [Legionnaires' disease] Onset: 12-21-2022 04-25-2019 Episodic Residual codes; unclassified (4 sources) Sleep apnea 04-25-2019 Chronic Residual codes; unclassified (1 source) Sleep apnea, unspecified; 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: [SLEEP APNEA UNSPECIFIED] Onset: 12-21-2022 Chronic Thyroid disorders (4 sources) Hypothyroidism, unspecified; 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: [HYPOTHYROIDISM UNSPECIFIED] Onset: 10-11-2022 Chronic Unclassified (4 sources) Patient encounter status 07-14-2023 Past or Other Problems Problem Classification Problem Date Documented Da te Episodic/Chronic Unclassified (4 sources) Drug therapy finding 11-03-2022 Results Test Name Value Interpretation Reference Range Facil ity Ambulatory Visit Summaryon 0 12-28-2023 Ambulatory Visit Summary MAXIMINO CLARKE :1955 Visit Date:12/28/2023 Ambulatory Visit Instructions Your Diagnosis Sore throat Fluid level behind tympanic membrane of both ears BMI 30.0-30.9,adult Non-smoker Hypertension Your Care Team Attending Physician - Mary Ellen Dela Cruz Primary Care Physician - Mary Ellen Dela Cruz This Is Your Medications List albuterol (albuterol 0.083% Inh Anne 3 mL) alfuzosin (alfuzosin 10 mg ER Tab) amoxicillin-clavulana te (Augmentin 875 mg oral tablet) aspirin budesonide (Pulmicort Flexhaler 90 mcg/inh inhalation powder) carvedilol (carvedilol 12.5 mg Tab) cholecalciferol (D3 1000 intl units (25 mcg) oral tablet) rosuvastatin (rosuvastatin 20 mg Tab) Procedures Performed Colonoscopy (12/14/2022), Transrectal biopsy of prostate using ultrasound (US) guidance (04/29/2019), Cystoscopy w/UD (07/17/2017), Cystoscopy (04/09/2014), Colonoscopy (09/11/2013), Cardiac catheterization, Cardiac Stent, CE - Cataract extraction, Fluid Removed from Lungs, Partial colectomy. Discharge Vitals Temperature (Tympanic) 36.5 ?C Heart Rate (Peripheral) 82 Respiratory Rate 18 Blood Pressure 148/94 Height 174 cm Height 69 in Weight 93.3 kg Weight 205.26 lb BMI 30.82 What to do next Scheduled Follow-Up Appointments Monday 8:45 AM EDT With: SANGEETA DHALIWAL, Jim More Where: [facility] [place] 12-28-2023 Consent [id number] [facility] Family Medicine Office/Clini c Noteon 12-28-2023 Family Medicine Office/Clinic Note HPI Staff Maximino is a 68 year old male presenting for acute sick visit Respiratory C/O: Onset: 2 weeks , intermittent Body aches: no Chest congestion: yes Chills: no Cough: yes Sputum production: yes Sore throat: yes Ear complaints: no Eye itching/watering: no Fever: no Headache: no Nasal congestion: no Nasal discharge: no Poor appetite: no Reduced activity: no Sinus pain/pressure: no Sneezing: yes Wheezing: no Ill contacts: yes Remedies tried: Cold and flu Questions/Concerns: pt states he is going on a cruise soon and is here so it doesn't get any worse Pt states his blood pressure has been running high at home History of Present Illness pt presents today with sore throat and cough Review of Systems PHQ Score Initial Depression Screen Score: 0 SCORE Physical Exam Vitals & Measurements T: 36.5 ?C(Tympanic) HR: 82(Peripheral) RR: 18 BP: 148/94 SpO2: 94% HT: 69 in HT: 174 cm WT: 93.3 kg WT: 205.26 lb BMI: 30.82 General: alert, no acute distress ENMT: oral mucosa moist, no pharyngeal erythema or exudate Cardiovascular: regular rate and rhythm, normal peripheral perfusion Respiratory: Lungs CTA, respirations non labored Extremities: no deformity, no trauma Neurological: oriented x 4, LOC appropriate for age, CN II-XII intact, motor strength equal & normal bilaterally, speech normal Assessment/Plan 1. Sore throat (J02.9: Acute pharyngitis, unspecified) throat red and no exudate. kenalog given in office. augmentin sent to pharmacy 2. Fluid level behind tympanic membrane of both ears (H65.93: Unspecified nonsuppurative otitis media, bilateral) SHIRA TM full of fluid. right canal pink 3. BMI 30.0-30.9,adult (Z68.30: Body mass index [BMI] 30.0-30.9, adult) bmi education complete Ordered: amoxicillin-clavulana te, = 1 tab(s), Oral, q12hr, X 7 day(s), # 14 tab(s), Refills(s) 0, Pharmacy: [facility] #[id number], 174, cm, 12/28/23 8:31:00 EDT, Height/Length Dosing, 93.3, kg, 12/28/23 8:31:00 EDT, Weight Dosing 4. Non-smoker (Z78.9: Other specified health status) continue not smoking Ordered: amoxicillin-clavulana te, = 1 tab(s), Oral, q12hr, X 7 day(s), # 14 tab(s), Refills(s) 0, Pharmacy: [facility] #[id number], 174, cm, 12/28/23 8:31:00 EDT, Height/Length Dosing, 93.3, kg, 12/28/23 8:31:00 EDT, Weight Dosing 5. Hypertension (I10: Essential (primary) hypertension) BP continues to run high. receiving tank operator started him on carvedilol we will increase that dose today. he does not have any follow up appointments scheduled with cardiology and they are leaving on a cruise next week. RTC 4 weeks for BP check. Orders: carvedilol, 12.5 mg = 1 tab(s), Oral, BID, # 60 tab(s), Refills(s) 0, Pharmacy: [facility] #[id number], 174, cm, 12/28/23 8:31:00 EDT, Height/Length Dosing, 93.3, kg, 12/28/23 8:31:00 EDT, Weight Dosing Follow-up No qualifying data available Problem List/Past Medical History Ongoing Benign prostatic hypertrophy with outflow obstruction BMI 31.0-31.9,adult Chronic fatigue syndrome Chronic obstructive pulmonary disease Coronary artery disease Cough Elevated PSA Emphysema of lung Fatigue Fluid level behind tympanic membrane of both ears Gallstones Gross hematuria Headache Hematochezia Hyperlipidemia Hypertension Interstitial pulmonary fibrosis Legionnaire's disease Low testosterone Nocturia Prostate cancer screening Rectal bleeding Right otitis media Sleep apnea Sore throat Urging to urinate Weak urinary stream Wellness examination Historical Anticoagulated Procedure/Surgical History Colonoscopy (12/14/2022), Transrectal biopsy of prostate using ultrasound (US) guidance (04/29/2019), Cystoscopy w/UD (07/17/2017), Cystoscopy (04/09/2014), Colonoscopy (09/11/2013), Cardiac catheterization, Cardiac Stent, CE - Cataract extraction, Fluid Removed from Lungs, Partial colectomy. Medications albuterol 0.083% Inh Anne 3 mL, 2.5 mg= 3 mL, NEB, q6hr alfuzosin 10 mg ER Tab, 10 mg= 1 tab(s), Oral, Daily, 11 refills aspirin, 81 mg, Chewed, Daily Augmentin 875 mg oral tablet, 1 tab(s), Oral, q12hr carvedilol 12.5 mg Tab, 12.5 mg= 1 tab(s), Oral, BID D3 1000 intl units (25 mcg) oral tablet, 25 mcg= 1 tab(s), Oral, Daily Pulmicort Flexhaler 90 mcg/inh inhalation powder, 1 inh, Inhalation, BID, 11 refills rosuvastatin 20 mg Tab, 20 mg= 1 tab(s), Oral, Daily Allergies No Known Medication Allergies Social History Alcohol - Denies Alcohol Use, 04/25/2019 Substance Abuse - Denies Substance Abuse, 11/22/2022 Tobacco Never (less than 100 in lifetime) Tobacco Use:. Never Smokeless Tobacco Use:. Household tobacco concerns: No., 12/28/2023 Family History Anxiety: Mother. Heart disease: Sister. Hypertension: Mother. Pancreatic cancer: Mother. Immunizations Vaccine Date Status influenza virus vaccine, inactivated 06/09/2022 Recorded SARS-CoV-2 (COVID-19) mRNA BNT-162b2 vax 09/21/2021 Recorded SARS (more content not included)... Normal [facility] Comment on above: Result Comment: Elec tronically Signed By: Mary Ellen Dela Cruz\.br\Date and Time Signed: 12/28/23 08:48 EDT Office Visiton 12-08-2023 Follow-up visit [id number] Maximino Clarke 1955 M Date Provider Department [facility] Family History Problem Relation Age of Onset Hypertension Mother Cancer Mother Family Status - Relation Status Age at Mother Level of Service:89645 NC OFFICE/OUTPATIENT ESTABLISHED MOD MDM 30 MIN Reason for Visit and Comments: Follow-up [020712] [facility] Ambulatory Visit Summaryon 0 12-04-2023 Ambulatory Visit Summary MAXIMINO CLARKE :1955 Visit Date:12/04/2023 Ambulatory Visit Instructions Your Diagnosis Benign prostatic hypertrophy with outflow obstruction Your Care Team Attending Physician - Jim BAH MD Primary Care Physician - Mary Ellen Dela Cruz This Is Your Medications List alfuzosin (alfuzosin 10 mg ER Tab) Contact prescribing physician if questions or concerns albuterol (albuterol 0.083% Inh Anne 3 mL) aspirin budesonide (Pulmicort Flexhaler 90 mcg/inh inhalation powder) carvedilol (carvedilol 6.25 mg Tab) cholecalciferol (D3 1000 intl units (25 mcg) oral tablet) rosuvastatin (rosuvastatin 20 mg Tab) Procedures Performed Colonoscopy (12/14/2022), Transrectal biopsy of prostate using ultrasound (US) guidance (04/29/2019), Cystoscopy w/UD (07/17/2017), Cystoscopy (04/09/2014), Colonoscopy (09/11/2013), Cardiac catheterization, Cardiac Stent, CE - Cataract extraction, Fluid Removed from Lungs, Partial colectomy. Discharge Vitals Temperature (Temporal Artery) 36.9 ?C Heart Rate (Peripheral) 90 Respiratory Rate 17 Blood Pressure 155/92 Height 174 cm Height 69 in Weight 90 kg Weight 198 lb BMI 29.73 What to do next Scheduled Follow-Up Appointments Monday. 2024 8:45 AM EDT With: SANGEETA DHALIWAL, Jim More Where: [facility] Patient Educationon 12-04-19 Patient Education Urology Benign Prostatic Hyperplasia Benign prostatic hyperplasia (BPH) is an enlarged prostate gland that is caused by the normal aging process. The prostate may get bigger as a man gets older. The condition is not caused by cancer. The prostate is a walnut-sized gland that is involved in the production of semen. It is located in front of the rectum and below the bladder. The bladder stores urine. The urethra carries stored urine out of the body. An enlarged prostate can press on the urethra. This can make it harder to pass urine. The buildup of urine in the bladder can cause infection. Back pressure and infection may progress to bladder damage and kidney (renal) failure. What are the causes? This condition is part of the normal aging process. However, not all men develop problems from this condition. If the prostate enlarges away from the urethra, urine flow will not be blocked. If it enlarges toward the urethra and compresses it, there will be problems passing urine. What increases the risk? This condition is more likely to develop in men older than 50 years. What are the signs or symptoms? Symptoms of this condition include: ? Getting up often during the night to urinate. ? Needing to urinate frequently during the day. ? Difficulty starting urine flow. ? Decrease in size and strength of your urine stream. ? Leaking (dribbling) after urinating. ? Inability to pass urine. This needs immediate treatment. ? Inability to completely empty your bladder. ? Pain when you pass urine. This is more common if there is also an infection. ? Urinary tract infection (UTI). How is this diagnosed? This condition is diagnosed based on your medical history, a physical exam, and your symptoms. Tests will also be done, such as: ? A post-void bladder scan. This measures any amount of urine that may remain in your bladder after you finish urinating. ? A digital rectal exam. In a rectal exam, your health care provider checks your prostate by putting a lubricated, gloved finger into your rectum to feel the back of your prostate gland. This exam detects the size of your gland and any abnormal lumps or growths. ? An exam of your urine (urinalysis). ? A prostate specific antigen (PSA) screening. This is a blood test used to screen for prostate cancer. ? An ultrasound. This test uses sound waves to electronically produce a picture of your prostate gland. Your health care provider may refer you to a specialist in kidney and prostate diseases (urologist). How is this treated? Once symptoms begin, your health care provider will monitor your condition (active surveillance or watchful waiting). Treatment for this condition will depend on the severity of your condition. Treatment may include: ? Observation and yearly exams. This may be the only treatment needed if your condition and symptoms are mild. ? Medicines to relieve your symptoms, including: ? Medicines to shrink the prostate. ? Medicines to relax the muscle of the prostate. ? Surgery in severe cases. Surgery may include: ? Prostatectomy. In this procedure, the prostate tissue is removed completely through an open incision or with a laparoscope or robotics. ? Transurethral resection of the prostate (TURP). In this procedure, a tool is inserted through the opening at the tip of the penis (urethra). It is used to cut away tissue of the inner core of the prostate. The pieces are removed through the same opening of the penis. This removes the blockage. ? Transurethral incision (TUIP). In this procedure, small cuts are made in the prostate. This lessens the prostate's pressure on the urethra. ? Transurethral microwave thermotherapy (TUMT). This procedure uses microwaves to create heat. The heat destroys and removes a small amount of prostate tissue. ? Transurethral needle ablation (TUNA). This procedure uses radio frequencies to destroy and remove a small amount of prostate tissue. ? Interstitial laser coagulation (ILC). This procedure uses a laser to destroy and remove a small amount of prostate tissue. ? Transurethral electrovaporization (TUVP). This procedure uses electrodes to destroy and remove a small amount of prostate tissue. ? Prostatic urethral lift. This procedure inserts an implant to push the lobes of the prostate away from the urethra. Follow these instructions at home: ? Take cfpi-oux-[id number] and prescription medicines only as told by your health care provider. ? Monitor your symptoms for any changes. Contact your health care provider with any changes. ? Avoid drinking large amounts of liquid before going to bed or out in public. ? Avoid or reduce how much caffeine or alcohol you drink. ? Give yourself time when you urinate. ? Keep all follow-up visits. This is important. Contact a health care provider if: ? You have unexplained back pain. ? Your symptoms do not get better with treatment. ? You develop side effects from the medicine (more content not included)... Normal [facility] Urology Office/Clinic Noteon 12-04-2023 Urology Office/Clinic Note Chief Complaint elevated PSA HPI Staff New pt today to reestablish care. Last saw DLS 05/04/20. Dx: BPH with obstruction, elevated PSA and weak urinary stream PSA done 07/14/23 was 1.4 Negative prostate biopsy 2018 Dysuria: no Incomplete bladder emptying: no Hematuria: no Frequency: sometimes Urgency: yes states sometimes Nocturia: 2x for a long time states that he drinks large amounts before bed usually Stream: slower stream Leaking: if he holds it too long Post void dripping: yes sometimes Wearing pads/ Depends: no Urge incontinence: no Stress incontinence: no Incontinence without Sensory Awareness: no Abdominal pain: no Flank pain: no Sexual complaints: no History of Present Illness Tests Reviewed: Reviewed UA. I have reviewed and verified the staff HPI to be accurate for this encounter. I have reviewed the previous health record information and history for this patient from Dr. Bah There have been no associated fever, chills, flank pain, or blood in the urine. Denies any urinary infections since last encounter. Review of Systems PHQ Score Initial Depression Screen Score: 0 SCORE ROS - Provider Constitutional: denies weight loss, denies hot flashes. Eyes: denies eye problems. Gastrointestinal: denies nausea, denies vomiting. Cardiovascular: denies chest pain or angina. Integumentary: no dryness Musculoskeletal: denies musculoskeletal symptoms. ENMT: denies otolaryngeal symptoms. Respiratory: no shortness of breath. Heme/Lymph: denies easy bleeding tendency, denies easy bruising tendency. Psychiatric: no confusion, no anxiety. Genitourinary: denies dysuria, denies hematuria, denies discharge, denies urinary frequency, mild urinary hesitancy, mild nocturia, denies incontinence, denies genital sores, denies decreased libido, and denies erectile dysfunction. Physical Exam Vitals & Measurements T: 36.9 ?C(Temporal Artery) HR: 90(Peripheral) RR: 17 BP: 155/92 HT: 69 in HT: 174 cm WT: 90 kg WT: 198 lb BMI: 29.73 General Appearance: alert, no distress, well nourished, well developed male. Flank Pain: none. Bladder: nonpalpable. Prostate: normal prostate, estimated weight 40 gms, no hard nodule observed. Assessment/Plan Patient is here today with his . 1. Benign prostatic hypertrophy with outflow obstruction (N40.1: Benign prostatic hyperplasia with lower urinary tract symptoms) Weak Stream at start of stream, feels empty, but has to do double voids. UA reviewed today was negative for blood and infection. , Not currently taking any BPH medications. Gets up 2 times per night. Discussed with patient he probably had a subclinical prostate infection which could have caused his PSA level to rise. Patient to start Alfuzosin 10mg po qd therapy. Discussed side effects of medication causing retrograde ejaculation, headaches and dizziness on standing. Patient acknowledges understanding and will call with any questions or concerns. PSA was done 12/2017 5.97 and March 2018 3.05. Previously saw Dr. Ramirez. PSA done 07/14/23 was 1.4 Negative prostate biopsy 2018 1 year f/u with PSA Follow-up With When Contact Information SANGEETA DHALIWAL, Jim More, URL In 1 year [facility] [address], [place] [address]- [phone] Additional Instructions: with PSA Patient Education Benign Prostatic Hyperplasia Iris Starks, personally scribed for Dr. Bah on 12/04/2023 09:44:24. . Documentation recorded by the arleen guerinlin, accurately reflects the services(s) I performed and decisions made by me. Authenticated by Dr. Bah on 12/04/2023 09:47:26. Problem List/Past Medical History Ongoing Benign prostatic hypertrophy with outflow obstruction BMI 31.0-31.9,adult Chronic fatigue syndrome Chronic obstructive pulmonary disease Coronary artery disease Cough Elevated PSA Emphysema of lung Fatigue Gallstones Gross hematuria Headache Hematochezia Hyperlipidemia Hypertension Interstitial pulmonary fibrosis Legionnaire's disease Low testosterone Nocturia Prostate cancer screening Rectal bleeding Right otitis media Sleep apnea Sore throat Urging to urinate Weak urinary stream Wellness examination Historical Anticoagulated Procedure/Surgical History Colonoscopy (12/14/2022), Transrectal biopsy of prostate using ultrasound (US) guidance (04/29/2019), Cystoscopy w/UD (07/17/2017), Cystoscopy (04/09/2014), Colonoscopy (09/11/2013), Cardiac catheterization, Cardiac Stent, CE - Cataract extraction, Fluid Removed from Lungs, Partial colectomy. Medications albuterol 0.083% Inh Anne 3 mL, 2.5 mg= 3 mL, NEB, q6hr alfuzosin 10 mg ER Tab, 10 mg= 1 tab(s), Oral, Daily, 11 refills aspirin, 81 mg, Chewed, Daily carvedilol 6.25 mg Tab, 6.25 mg= 1 tab(s), Oral, BID D3 1000 intl units (25 mcg) oral tablet, 25 mcg= 1 tab(s), Oral, Daily Pulmicort Flexhaler 90 mcg/inh i (more content not included)... Normal [facility] Comment on above: Result Comment: Elec tronically Signed By: Jim BAH MD\.br\Date and Time Signed: 12/04/23 09:47 EST\.br\Electronically Co-Signed By: Iris Robledo.br\Date and Time Co-Signed: 12/04/23 09:45 EST Ambulatory Visit Summaryon 0 10-13-2023 Ambulatory Visit Summary MAXIMINO CLARKE :1955 Visit Date:10/13/2023 Ambulatory Visit Instructions Your Diagnosis Hypertension BMI 31.0-31.9,adult Non-smoker Your Care Team Attending Physician - Mary Ellen Dela Cruz Primary Care Physician - Mary Ellen Dela Cruz This Is Your Medications List albuterol (albuterol 0.083% Inh Anne 3 mL) aspirin budesonide (Pulmicort Flexhaler 90 mcg/inh inhalation powder) carvedilol (carvedilol 6.25 mg Tab) cholecalciferol (D3 1000 intl units (25 mcg) oral tablet) rosuvastatin (rosuvastatin 20 mg Tab) Procedures Performed Colonoscopy (12/14/2022), Transrectal biopsy of prostate using ultrasound (US) guidance (04/29/2019), Cystoscopy w/UD (07/17/2017), Cystoscopy (04/09/2014), Colonoscopy (09/11/2013), Cardiac catheterization, Cardiac Stent, Fluid Removed from Lungs, Partial colectomy. Discharge Vitals Heart Rate (Peripheral) 80 Respiratory Rate 18 Blood Pressure 152/102 Height 172.7 cm Height 68 in Weight 92.5 kg Weight 203.5 lb BMI 31.01 What to do next Scheduled Follow-Up Appointments Monday 9:00 AM EST With: SANGEETA DHALIWAL, Jim More Where: [facility] Family Medicine Office/Clini c Noteon 10-13-2023 Family Medicine Office/Clinic Note HPI Staff Maximino is a 68 year old male presenting for 3 month follow up SOFIA 07/14/23 pt establish care and had been without blood pressure medication for 2 months b/p: 162/112 Pt seen [facility] Placer last week in [facility]. changed blood pressure medication. Patient is here for follow up on hypertension. How often are you checking your blood pressure? no What are your average readings? _ History of Present Illness pt presents today for BP follow up. Review of Systems PHQ Score Initial Depression Screen Score: 0 SCORE ROS - Provider Constitutional: no fever, no chills, no sweats, no fatigue Respiratory: no shortness of breath, no cough, no orthopnea, no wheezing. Cardiovascular: no chest pain, no palpitations, no edema. Neurologic: no headache, no dizziness, no numbness, no weakness. Physical Exam Vitals & Measurements HR: 80(Peripheral) RR: 18 BP: 148/100 SpO2: 98% HT: 68 in HT: 172.7 cm WT: 92.5 kg WT: 203.5 lb BMI: 31.01 General: alert, no acute distress ENMT: oral mucosa moist, no pharyngeal erythema or exudate Cardiovascular: regular rate and rhythm, normal peripheral perfusion Respiratory: Lungs CTA, respirations non labored Extremities: no deformity, no trauma Neurological: oriented x 4, LOC appropriate for age, CN II-XII intact, motor strength equal & normal bilaterally, speech normal Assessment/Plan 1. Hypertension (I10: Essential (primary) hypertension) pt presents today for follow up on BP. was seen by cardiology last week and they changed his meds. has echo and stress test scheduled. pt instructed to keep an eye on BP. if it continues to be elevated he will call cardiology. All questions answered. RTC 6 months 2. BMI 31.0-31.9,adult (Z68.31: Body mass index [BMI] 31.0-31.9, adult) BMI education complete 3. Non-smoker (Z78.9: Other specified health status) continue not smoking Orders: hydrochlorothiazide-l osartan, 1 tab(s), Oral, Daily, 30 tab(s), Refill(s) 5, [facility] #[id number], 172.7, cm, 07/14/23 13:11:00 EDT, Height/Length Dosing, 92, kg, 07/14/23 13:11:00 EDT, Weight Dosing pravastatin, 20 mg, Oral, Daily, # 90 tab(s), Refills(s) 3, Pharmacy: [facility] #[id number], 172.7, cm, 07/14/23 13:11:00 EDT, Height/Length Dosing, 92, kg, 07/14/23 13:11:00 EDT, Weight Dosing Follow-up No qualifying data available Problem List/Past Medical History Ongoing Benign prostatic hypertrophy with outflow obstruction BMI 31.0-31.9,adult Chronic fatigue syndrome Chronic obstructive pulmonary disease Coronary artery disease Cough Elevated PSA Emphysema of lung Fatigue Gallstones Gross hematuria Headache Hematochezia Hyperlipidemia Hypertension Interstitial pulmonary fibrosis Legionnaire's disease Low testosterone Nocturia Prostate cancer screening Rectal bleeding Right otitis media Sleep apnea Sore throat Urging to urinate Weak urinary stream Wellness examination Historical Anticoagulated Procedure/Surgical History Colonoscopy (12/14/2022), Transrectal biopsy of prostate using ultrasound (US) guidance (04/29/2019), Cystoscopy w/UD (07/17/2017), Cystoscopy (04/09/2014), Colonoscopy (09/11/2013), Cardiac catheterization, Cardiac Stent, Fluid Removed from Lungs, Partial colectomy. Medications albuterol 0.083% Inh Anne 3 mL, 2.5 mg= 3 mL, NEB, q6hr aspirin, 81 mg, Chewed, Daily carvedilol 6.25 mg Tab, 6.25 mg= 1 tab(s), Oral, BID D3 1000 intl units (25 mcg) oral tablet, 25 mcg= 1 tab(s), Oral, Daily Pulmicort Flexhaler 90 mcg/inh inhalation powder, 1 inh, Inhalation, BID, 11 refills rosuvastatin 20 mg Tab, 20 mg= 1 tab(s), Oral, Daily Allergies No Known Allergies No Known Medication Allergies Social History Alcohol - Denies Alcohol Use, 04/25/2019 Substance Abuse - Denies Substance Abuse, 11/22/2022 Tobacco Never (less than 100 in lifetime) Tobacco Use:. Never Smokeless Tobacco Use:. Household tobacco concerns: No., 10/13/2023 Family History Anxiety: Mother. Heart disease: Sister. Hypertension: Mother. Pancreatic cancer: Mother. Immunizations Vaccine Date Status influenza virus vaccine, inactivated 06/09/2022 Recorded SARS-CoV-2 (COVID-19) mRNA BNT-162b2 vax 09/21/2021 Recorded SARS-CoV-2 (COVID-19) mRNA BNT-162b2 vax 01/05/2021 Recorded SARS-CoV-2 (COVID-19) mRNA BNT-162b2 vax 12/14/2020 Recorded Normal [facility] Comment on above: Result Comment: Elec tronically Signed By: Mary Ellen Dela Cruz\.br\Date and Time Signed: 10/13/23 13:23 EST Office Visiton 10-06-2023 Follow-up visit [id number] Maximino Clarke 1955 M Date Provider Department Center 10/06/2023 [id number] VASQUEZ [facility] Family History Problem Relation Age of Onset Hypertension Mother Cancer Mother Family Status - Relation Status Age at Mother Level of Service:21306 NC OFFICE/OUTPATIENT NEW MODERATE MDM 45 MINUTES Normal [facility] Retail - Clinical Noteon Retail - Clinical Note [id number] .00TIFF Normal [facility] Consultation Noteon 09-08-20 Consultation Note [id number] .00TIFF Normal [facility] Ambulatory Visit Summaryon 1 10-30-2022 [...] 1000 intl units (25 mcg) oral tablet) hydrochlorothiazide-l osartan (hydrochlorothiazide- losartan 12.5 mg-100 mg oral tablet) methylPREDNISolone (Medrol [...] EST With: Mary Ellen Dela Cruz Where: [facility] Normal [address] [place] [address] [place] [address]- \.br\ Medications\.br\ What How Much When Why Instructions\.br\ New azithromycin (azithromycin 250 mg Tab) 1 Packets By Mouth As Directed Right otitis media Cough Sore throat Headache BMI 30.0-30.9,adult Non-smoker Duration: 5 Days as directed on package labeling Pickup at [facility] #[id number]\.br\ New methylPREDNISolone (Medrol 4 mg Tab) 1 Packets By Mouth As Directed Right otitis media Cough Sore throat Headache BMI 30.0-30.9,adult Non-smoker Duration: 6 Days as directed on package labeling Pickup at [facility] #[id number]\.br\ Unchanged albuterol (albuterol 0.083% Inh Anne 3 [...] Milligram By Mouth Every day\.br\ Pharmacy Information\.br\ [facility] #[id number]: [address], [place] [id number] [phone]\.br\ Allergies\.br\ No Known Allergies\.br\ No Known Medication [...] for choosing us for your care.\.br\ \.br\ [facility] Ambulatory Visit Summary MAXIMINO CLARKE Amy [...] 1000 intl units (25 mcg) oral tablet) hydrochlorothiazide-l osartan (hydrochlorothiazide- losartan 12.5 mg-100 mg oral tablet) pravastatin (pravastatin [...] EST With: Mary Ellen Dela Cruz Where: [facility] Normal [address] [place] [address]- \.br\ Medications\.br\ What How Much When Why [...] choosing us for your care.\.br\ \.br\ [facility] Family Medicine Office/Clini c Noteon [...] day(s), # 6 tab(s), Refills(s) 0, Pharmacy: [facility] #[id number], 172.7, cm, 08/30/23 16:58:00 EST, Height/Length Dosing, 92.2, kg, 08/30/23 16:58:00 EST, Weight Dosing methylPREDNISolone, = 1 packet(s), Oral, As Directed, as directed on package labeling, X 6 day(s), # 21 tab(s), Refills(s) 0, Pharmacy: [facility] #[id number], 172.7, cm, 08/30/23 16:58:00 EST, Height/Length Dosing, 92.2, kg, 08/30/23 16:58:00 EST, Weight Dosing 2. Cough (R05.9: Cough, unspecified) lung sound are tight pt coughing. pt has follow up with Dr. Barlow had CT of chest done recently Ordered: azithromycin, = 1 packet(s), Oral, As Directed, as directed on package labeling, X 5 day(s), # 6 tab(s), Refills(s) 0, Pharmacy: [facility] #[id number], 172.7, cm, 08/30/23 16:58:00 EST, Height/Length Dosing, 92.2, kg, 08/30/23 16:58:00 EST, Weight Dosing methylPREDNISolone, = 1 packet(s), Oral, As Directed, as directed on package labeling, X 6 day(s), # 21 tab(s), Refills(s) 0, Pharmacy: [facility] #[id number], 172.7, cm, 08/30/23 16:58:00 EST, Height/Length Dosing, 92.2, kg, 08/30/23 16:58:00 EST, Weight Dosing 3. Sore throat (J02.9: Acute pharyngitis, unspecified) thrat is red no exudate Ordered: azithromycin, = 1 packet(s), Oral, As Directed, as directed on package labeling, X 5 day(s), # 6 tab(s), Refills(s) 0, Pharmacy: [facility] #[id number], 172.7, cm, 08/30/23 16:58:00 EST, Height/Length Dosing, 92.2, kg, 08/30/23 16:58:00 EST, Weight Dosing methylPREDNISolone, = 1 packet(s), Oral, As Directed, as directed on package labeling, X 6 day(s), # 21 tab(s), Refills(s) 0, Pharmacy: [facility] #[id number], 172.7, cm, 08/30/23 16:58:00 EST, Height/Length Dosing, 92.2, kg, 08/30/23 16:58:00 EST, Weight Dosing 4. Headache (R51.9: Headache, unspecified) sinus tenderness Ordered: azithromycin, = 1 packet(s), Oral, As Directed, as directed on package labeling, X 5 day(s), # 6 tab(s), Refills(s) 0, Pharmacy: [facility] #[id number], 172.7, cm, 08/30/23 16:58:00 EST, Height/Length Dosing, 92.2, kg, 08/30/23 16:58:00 EST, Weight Dosing methylPREDNISolone, = 1 packet(s), Oral, As Directed, as directed on package labeling, X 6 day(s), # 21 tab(s), Refills(s) 0, Pharmacy: [facility] #[id number], 172.7, cm, 08/30/23 16:58:00 EST, Height/Length Dosing, 92.2, kg, 08/30/23 16:58:00 EST, Weight Dosing 5. BMI 30.0-30.9,adult (Z68.30: Body mass index [BMI] 30.0-30.9, adult) bmi education complete Ordered: azithromycin, = 1 packet(s), Oral, As Directed, as directed on package labeling, X 5 day(s), # 6 tab(s), Refills(s) 0, Pharmacy: [facility] #[id number], 172.7, cm, 08/30/23 16:58:00 EST, Height/Length Dosing, 92.2, kg, 08/30/23 16:58:00 EST, Weight Dosing methylPREDNISolone, = 1 packet(s), Oral, As Directed, as directed on package labeling, X 6 day(s), # 21 tab(s), Refills(s) 0, Pharmacy: [facility] #[id number], 172.7, cm, 08/30/23 16:58:00 EST, Height/Length Dosing, 92.2, kg, 08/30/23 16:58:00 EST, Weight Dosing 6. Non-smoker (Z78.9: Other specified health status) continue not smoking Ordered (more content not included)... Normal [facility] Comment on above: Result Comment: Elec tronically Signed By: Mary Ellen Dela Cruz\.br\Date and Time Signed: 08/30/23 17:11 EST Consultation Noteon 08-03-20 23 Consultation Note [id number] .00TIFF [facility] Physician Referralon 023 Physician Referral [id number] [facility] Ambulatory Visit Summaryon 1 Ambulatory Visit [...] 1000 intl units (25 mcg) oral tablet) hydrochlorothiazide-l osartan (hydrochlorothiazide- losartan 12.5 mg-100 mg oral tablet) pravastatin predniSONE [...] EST With: Mary Ellen Dela Cruz Where: [facility] Normal [facility] Auto Diffon 07-14-2023 Basophils/100 WBC (Bld) 0.7 % Normal 0.0-2.0 [facility] Comment on above: Order Comment: Order Added by Discern Expert. Performed By: #### 2 109772, 5106487, 2617919, 0476082, 46537601, 4780068, 48508151 ####[facility] [address] [place] [address] Basophils/Leukocyte s Auto (Bld) [Pure # fraction] 0.0 E9/L Normal 0.0-0.2 [facility] Comment on above: Order Comment: Order Added by Discern Expert. Performed By: #### 2 318411, 0705870, 5124436, 6593723, 29990850, 4474543, 36167843 ####[facility] [address] [place] [address] Eosinophils/100 WBC (Bld) 1.3 % Normal 0.0-8.0 [facility] Comment on above: Order Comment: Order Added by Discern Expert. Performed By: #### 2 267014, 6952277, 7633630, 8204296, 66513541, 8805308, 30326597 ####[facility] [address] [place] [address] Eosinophils/Leukocy funmilayo Auto (Bld) [Pure # fraction] 0.1 E9/L Normal 0.0-0.5 [facility] Comment on above: Order Comment: Order Added by Discern Expert. Performed By: #### 2 563806, 3997235, 0550402, 1053232, 88890933, 8043698, 52960140 ####[address] [place] [address] Lymphocytes/100 WBC (Bld) 20.2 % Normal 14.0-50.0 [facility] Comment on above: Order Comment: Order Added by Discern Expert. Performed By: #### 2 087143, 5866084, 4176671, 1099144, 18228921, 6103482, 67247522 ####[address] [place] [address] Lymphocytes/Leukocy funmilayo Auto (Bld) [Pure # fraction] 1.4 E9/L Normal 1.0-4.0 [facility] Comment on above: Order Comment: Order Added by Discern Expert. Performed By: #### 2 709401, 6172637, 2548610, 1169589, 19261784, 2047440, 10478765 ####[address] [address] Monocytes/100 WBC (Bld) 12.3 % Normal 4.0-14.0 [facility] Comment on above: Order Comment: Order Added by Discern Expert. Performed By: #### 2 427271, 6834568, 2576159, 5460019, 83785086, 9696494, 96179560 ####[address] [place] [address] Monocytes/Leukocyte s Auto (Bld) [Pure # fraction] 0.8 E9/L Normal 0.2-1.0 [facility] Comment on above: Order Comment: Order Added by Discern Expert. Performed By: #### 2 564882, 7375857, 8164277, 5131220, 47950786, 5941888, 75672637 ####[address] [place] [address] Neutrophils/100 WBC (Bld) 65.5 % Normal 36.0-75.0 [facility] Comment on above: Order Comment: Order Added by Discern Expert. Performed By: #### 2 904503, 7489951, 4395075, 7153753, 43087803, 2192464, 52836053 ####[facility] [address] [place] [address] Neutrophils/Leukocy funmilayo Auto (Bld) [Pure # fraction] 4.5 E9/L Normal 2.0-7.5 [facility] Comment on above: Order Comment: Order Added by Discern Expert. Performed By: #### 2 800053, 0324382, 5858804, 1390774, 84929474, 9247693, 37108315 ####[address] [place] [address] CBC w/ Auto Diffon 3 Erythrocyte distribution width (RBC) [Ratio] 13.9 % Normal 10.9-14.2 [facility] Comment on above: Performed By: #### 2 412658, 3608483, 8811318, 5448823, 99250346, 9190443, 03824612 ####[address] [place] [address] Hematocrit (Bld) [Volume fraction] 47.7 % Normal 37.7-49.0 [facility] Comment on above: Performed By: #### 2 848780, 0589044, 8589907, 2874085, 03522450, 5484660, 47947535 ####[address] [place] [address] Hemoglobin (Bld) [Mass/Vol] 15.8 g/dL Normal 13.5-17.5 [facility] Comment on above: Performed By: #### 2 316187, 6570089, 7402776, 1993705, 31530277, 0655965, 30942811 ####[address] [place] [address] MCH (RBC) [Entitic mass] 30.2 pg Normal 27.0-34.0 [facility] Comment on above: Performed By: #### 2 171648, 6116586, 8792035, 1623221, 87295407, 4673277, 62049040 ####[address] [place] [address] MCHC (RBC) [Mass/Vol] 33.2 g/dL Normal 31.4-36.0 [facility] Comment on above: Performed By: #### 2 878753, 0750384, 8060011, 5066542, 94018055, 8052034, 24096722 ####[address] [place] [address] MCV (RBC) [Entitic vol] 90.9 fL Normal 80.0-100.0 [facility] Comment on above: Performed By: #### 2 455771, 1922379, 8436826, 2559044, 64803057, 2308180, 48385002 ####[address] [place] [address] Platelet mean volume (Bld) [Entitic vol] 11.2 fL High 6.4-10.8 [facility] Comment on above: Performed By: #### 2 839210, 2169136, 9887714, 7367240, 46096898, 5223651, 48050279 ####[address] [address] Platelets (Bld) [#/Vol] 105.0 E9/L Low 150.0-500.0 [facility] Comment on above: Performed By: #### 2 590715, 2440687, 3133480, 1729163, 83442792, 1166905, 27744427 ####[address] [place] [address] RBC (Bld) [#/Vol] 5.2 E12/L Normal 4.3-5.9 [facility] Comment on above: Performed By: #### 2 855746, 5977056, 1766141, 2432410, 68154033, 5808913, 70048275 ####[address] [place] [address] WBC corrected for nucl RBC Auto (Bld) [#/Vol] 6.8 E9/L Normal 4.0-11.0 [facility] Comment on above: Performed By: #### 2 849926, 4417613, 5153886, 2718653, 35993081, 7051218, 50958810 ####[facility] [address] [place] [address] CHEMISTRYOrdered By: SYSTEM SYSTEM on 07-14-2023 Albumin [...] 3.6 g/dL Normal 1.4 - 4.0 gm/dL [facility] Remisol Glucose [Mass/Vol] 96 mg/dL Normal 55 - 199 mg/dL [facility] Comment on above: Interpretive Data: I [...] for this result was chemiluminescence using [employer]'s Access [employer] PSA reagent. Protein [Mass/Vol] 7.8 [...] Low 10 - 20 [facility] Remisol CMPon 10-13-2023 Albumin [Mass/Vol] 4.2 g/dL Normal 3.3-5.0 [facility] Comment on above: Performed By: #### 2 315975, 8743758, 3112208, 4392612, 67638134, 2573495, 76388072 ####[facility] [address] [place] [address] Albumin/Globulin (S) [Mass conc ratio] 1.2 Normal 1.1-2.2 [facility] Comment on above: Performed By: #### 2 699761, 1535499, 1935619, 8773033, 90038881, 7847827, 98274928 ####[facility] [address] [place] [address] ALP [Catalytic activity/Vol] 75 Int._Unit/L Normal 21-98 [facility] Comment on above: Performed By: #### 2 414875, 2604006, 9545185, 7478586, 53391566, 8483767, 20279315 ####[facility] [address] [place] [address] ALT No additional P-5'-P [Catalytic activity/Vol] 28 Int._Unit/L Normal 6-46 [facility] Comment on above: Performed By: #### 2 016865, 1511601, 5381764, 0224813, 83721376, 8773692, 53031432 ####[facility] [address] [place] [address] Anion gap [Moles/Vol] 11 mmol/L Normal 6-16 [facility] Comment on above: Performed By: #### 2 491663, 8211172, 9495570, 7468036, 49115465, 5225328, 44879429 ####[facility] [address] [place] [address] AST [Catalytic activity/Vol] 30 Int._Unit/L Normal 5-43 [facility] Comment on above: Performed By: #### 2 931477, 4506176, 3122008, 0580945, 58101798, 1615713, 59730756 ####[facility] [address] [place] [address] Bilirubin [Mass/Vol] 0.4 mg/dL Normal 0.0-1.1 [facility] Comment on above: Performed By: #### 2 632341, 3009640, 8458100, 3910433, 35355697, 7611581, 54206251 ####[facility] [address] [place] [address] Calcium [Mass/Vol] 10.2 mg/dL Normal 8.9-11.1 [facility] Comment on above: Performed By: #### 2 880524, 6534089, 7320880, 8537582, 60349660, 9939497, 53395587 ####[facility] [address] [place] [address] Chloride [Moles/Vol] 113 mmol/L High 101-111 [facility] Comment on above: Performed By: #### 2 628364, 1430481, 9309369, 8592970, 00234573, 9480628, 49845823 ####[facility] [address] [place] [address] CO2 [Moles/Vol] 28 mmol/L Normal 21-31 [facility] Comment on above: Performed By: #### 2 824191, 1921386, 2378827, 3676671, 51276748, 9754587, 41312192 ####[facility] [address] [place] [address] Creatinine [Mass/Vol] 1.5 mg/dL High 0.5-1.3 [facility] Comment on above: Performed By: #### 2 677888, 2511880, 9106381, 0738457, 00459455, 2454688, 87853715 ####[facility] [address] [place] [address] Globulin (S) [Mass/Vol] 3.6 g/dL Normal 1.4-4.0 [facility] Comment on above: Performed By: #### 2 567657, 2272884, 0962996, 9210464, 37498441, 6935209, 04053760 ####[facility] [address] [place] [address] Glucose [Mass/Vol] 96 mg/dL Normal 55-199 [facility] Comment on above: Result Comment: If t his glucose result represents a fasting glucose, interpretation should refer to the following reference range: 55-99 mg/dL Performed By: #### 2 982817, 3299982, 0230811, 8447207, 86453017, 6958130, 27094481 ####[facility] [address] [place] [address] Potassium [Moles/Vol] 3.6 mmol/L Normal 3.5-5.3 [facility] Comment on above: Performed By: #### 2 570843, 9166888, 6394226, 2052122, 08068361, 2871492, 64262065 ####[facility] [address] [place] [address] Protein [Mass/Vol] 7.8 g/dL Normal 6.0-7.8 [facility] Comment on above: Performed By: #### 2 952929, 3667933, 5321656, 7944007, 72033312, 1304272, 99608231 ####[facility] [address] [place] [address] Sodium [Moles/Vol] 148 mmol/L High 135-145 [facility] Comment on above: Performed By: #### 2 941530, 3479219, 1737935, 8238612, 27815048, 6295125, 29445539 ####[facility] [address] [place] [address] Urea nitrogen [Mass/Vol] 14 mg/dL Normal 5-21 [facility] Comment on above: Performed By: #### 2 [id number], [id number], [id number], [id number], [id number], [id number], [id number] ####[facility] [address] [place] [address] Urea nitrogen/Creatinine [Mass ratio] 9 No Units Low 07-21 [facility] Comment on above: Performed By: #### 2 [id number], [id number], [id number], [id number], [id number], [id number], [id number] ####[facility] [address] [place] [address] Family Medicine Office/Clini c Noteon 07-14-2023 Family Medicine Office/Clinic Note HPI Staff Maximino is a 68 year old male presenting to establish care Establish Care: History: Any previous diagnosis: BPH, HLD, HTN, Sleep apnea, Emphysema, COPD, interstitial pulmonary fibrosis, legionnaire's disease History of seeing any specialist: Laboratory [facility]in[facility] in [place] When was your last doctors visit: Last provider: Dr Blandon Any recent labs:10/11/22 TSH 0.231, wellness labs 01/2022 Health Maintenance UTD: Colonoscopy: 12/28/22 due in 10 years PSA: Acute: Current issues/complaints: SOB: getting more short of breath quicker, 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 Chronic obstructive pulmonary disease (J44.9: Chronic obstructive pulmonary disease, unspecified) pt has had COPD for 22 years. has not been to lining sewer in over 10 years. was seeing someone in [place]. Will send referral to Dr. Barlow. will order steroid inhaler today Ordered: budesonide, 1 inh, Inhalation, BID, 1 EA, Refill(s) 11, [facility] #[id number], 172.7, cm, 07/14/23 13:11:00 EDT, Height/Length Dosing, 92, kg, 07/14/23 13:11:00 EDT, Weight Dosing CBC w/ Auto Diff Comprehensive Metabolic Panel [facility] [place] Lab Specimen Collect [id number] Lipid Panel PSA Screen, Total Thyroid Stimulating Hormone 3. Fatigue (R53.83: Other fatigue) will order labs. BP is elevated Ordered: budesonide, 1 inh, Inhalation, BID, 1 EA, Refill(s) 11, [facility] #[id number], 172.7, cm, 07/14/23 13:11:00 EDT, Height/Length Dosing, 92, kg, 07/14/23 13:11:00 EDT, Weight Dosing CBC w/ Auto Diff Comprehensive Metabolic Panel Lab Specimen Collect [id number] Lipid Panel PSA Screen, Total Thyroid Stimulating Hormone 4. Hypertension (I10: Essential (primary) hypertension) pt has been out of BP meds for 2 months. just started taking it again 2 days ago Ordered: budesonide, 1 inh, Inhalation, BID, 1 EA, Refill(s) 11, [facility] #[id number], 172.7, cm, 07/14/23 13:11:00 EDT, Height/Length Dosing, 92, kg, 07/14/23 13:11:00 EDT, Weight Dosing CBC w/ Auto Diff Comprehensive Metabolic Panel Lab Specimen Collect [id number] Lipid Panel PSA Screen, Total Thyroid Stimulating Hormone 5. Prostate cancer screening (Z12.5: Encounter for screening for malignant neoplasm of prostate) psa ordered today Ordered: budesonide, 1 inh, Inhalation, BID, 1 EA, Refill(s) 11, [facility] #[id number], 172.7, cm, 07/14/23 13:11:00 EDT, Height/Length Dosing, 92, kg, 07/14/23 13:11:00 EDT, Weight Dosing CBC w/ Auto Diff Comprehensive Metabolic Panel Lab Specimen Collect [id number] Lipid Panel PSA Screen, Total Thyroid Stimulating Hormone 6. BMI 31.0-31.9,adult (Z68.31: Body mass index [BMI] 31.0-31.9, adult) BMI education complete Ordered: budesonide, 1 inh, Inhalation, BID, 1 EA, Refill(s) 11, [facility] #[id number], 172.7, cm, 07/14/23 13:11:00 EDT, Height/Length Dosing, 92, kg, 07/14/23 13:11:00 EDT, Weight Dosing CBC w/ Auto Diff Comprehensive Metabolic Panel Lipid Panel PSA Screen, Total Thyroid Stimulating Hormone 7. Non-smoker (Z78.9: Other specified health status) continue not smoking Ordered: budesonide, 1 inh, Inhalation, BID, 1 EA, Refill(s) 11, [facility] #[id number], 172.7, cm, 07/14/23 13:11:00 EDT, Height/Length Dosing, 92, kg, 07/14/23 13:11:00 EDT, Weight Dosing CBC w/ Auto Diff Comprehensive (more content not included)... Normal [facility] Comment on above: Result Comment: Elec tronically Signed By: Mary Ellen Dela Cruz.br\Date and Time Signed: 07/14/23 14:54 EDT HEMATOLOGYOrdered [...] 11.2 fL High 6.4 - 10.8 fL [facility]eAuto[facility] Platelets (Bld) [#/Vol] 105.0 E9/L Low 150.0 - 500.0 E9/L [facility]eAuto[facility] RBC (Bld) [#/Vol] 5.2 E12/L Normal 4.3 - 5.9 E12/L [facility] HemeAutoSS WBC corrected for nucl RBC Auto (Bld) [#/Vol] 6.8 E9/L Normal 4.0 - 11.0 E9/L [facility] Lipid Panelon 07-14-2023 Cholesterol [Mass/Vol] 191 mg/dL Normal 120-200 [facility] Comment on above: Performed By: #### 2 515370, [id number], 7184160, 0245937, [id number], 6036263, [id number] ####[facility] [address] [place] [address] Cholesterol in HDL [Mass/Vol] 29 mg/dL Invalid Interpretation Code [facility] Comment on above: Result Comment: HDL > or equal to 60 mg/dL: Low cardiovascular risk HDL < 40 mg/dL : High cardiovascular risk Performed By: #### 2 059212, [id number], [id number], 5210233, [id number], 3634029, [id number] ####[facility] [address] [place] [address] Cholesterol in LDL [Mass/Vol] 106 mg/dL Normal <=129 [facility] Comment on above: Performed By: #### 2 561004, 5172944, 6420947, 4633620, 85035382, 4179043, [id number] ####[facility] [address] [place] [address] Cholesterol in VLDL [Mass/Vol] 46 mg/dL High 7-40 [facility] Comment on above: Performed By: #### 2 137428, 9633355, 2839907, 3733572, 16689536, 2418721, [id number] ####[facility] [address] [place] [address] Triglyceride [Mass/Vol] 230 mg/dL High <=149 [facility] Comment on above: Performed By: #### 2 558159, 3370614, 7233365, 5968277, 55776311, 3853024, 50649012 ####[facility] [address] [place] [address] PSA Screen, Totalon 07-14-20 23 Prostate specific Ag [Mass/Vol] 1.4 ng/mL Normal 0.1-3.5 [facility] Comment on above: Result Comment: The concentration of PSA determined by different manufacturers can vary due to differences in assay methods and reagent specificity. Values obtained from different assay methods cannot be used interchangeably. The methodology used for this result was chemiluminescence using [employer] Hybritech PSA reagent. Performed By: #### 2 804344, 1031042, 8768244, 6782490, 01529321, 9254901, [id number] ####[facility] [address] [place] [address] TSHon 07-14-2023 TSH Qn 0.60 m[IU]/L Normal 0.34-5.60 [facility] Comment on above: Performed By: #### 2 862209, 6622769, 8299045, 1168412, 02877467, 8641748, 65650843 ####[facility] [address] [place] [address] eGFRon 07-14-2023 GFR/1.73 sq M.predicted among non-blacks MDRD (S/P/Bld) [Vol rate/Area] 51 mL/min/1.73 m2 Low >=59 [facility] Comment on above: Order Comment: Order added by Discern Expert. 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 Kidney failure is indicated at less than 15 mL/min/1.73m2. Performed By: #### 2 365788, 7374286, 0494295, 0376381, 17451360, 6731315, [id number] ####[facility] [address] [place] [address] Formson 02-22-2023 Forms [id number]#1 .00CD:127 Normal [facility] Retail - Clinical Noteon Retail - Clinical Note [id number] .[id number]:127 Normal [facility] CBC AUTO DIFFon 10-11-2022 BASO # 0.0 103/ul Normal 0.0-0.1 [facility] Comment on above: Performed By: #### C BC #### [facility] [address] [address] [address] Anup Paez Basophils/100 WBC (Bld) 0.4 % Normal 0.2-2.0 [facility] Comment on above: Performed By: #### C BC #### [facility] [address] [address] [address] Anup Paez EO # 0.0 103/ul Normal 0.0-0.7 [facility] Comment on above: Performed By: #### C BC #### [facility] [address] [address] [address] Anup Paez Eosinophils/100 WBC (Bld) 0.1 % Critically low 0.9-7.0 [facility] Comment on above: Performed By: #### C BC #### [facility] [address] [address] [address] Anup Paez Erythrocyte distribution width (RBC) [Ratio] 13.2 % Normal 11.0-15.0 [facility] Comment on above: Performed By: #### C BC #### [facility] [address] [place] [address] Dr. Anup Paez Hematocrit (Bld) [Volume fraction] 43.2 % Normal 42.0-54.0 [facility] Comment on above: Performed By: #### C BC #### [facility] [address] [place] [address] Dr. Anup Paez Hemoglobin (Bld) [Mass/Vol] 14.7 g/dL Normal 14.0-18.0 [facility] Comment on above: Performed By: #### C BC #### [facility] [address] [place] [address] Dr. Anup Paez IG # 0.03 10e3/ul Normal 0.00-0.03 [facility] Comment on above: Performed By: #### C BC #### [facility] [address] [place] [address] Dr. Anup Paez IG % 0.4 % Normal 0.0-0.5 [facility] Comment on above: Performed By: #### C BC #### [facility] [address] [place] [address] Dr. Anup Paez LYMPH # 1.2 103/ul Normal 1.2-3.8 [facility] Comment on above: Performed By: #### C BC #### [facility] [address] [place] [address] Dr. Anup Paez Lymphocytes/100 WBC (Bld) 14.8 % Critically low 20.5-60.0 [facility] Comment on above: Performed By: #### C BC #### [facility] [address] [place] [address] Dr. Anup Paez MANUAL DIFF REQ NO Normal [facility] Comment on above: Performed By: #### C BC #### [facility] [address] [place] [address] Dr. Anup Paez MCH (RBC) [Entitic mass] 30.3 pg Normal 25.9-34.0 [facility] Comment on above: Performed By: #### C BC #### [facility] [address] [place] [address] Dr. Anup Paez MCHC (RBC) [Mass/Vol] 34.0 g/dL Normal 29.9-35.2 [facility] Comment on above: Performed By: #### C BC #### [facility] [address] [place] [address] Dr. Anup Paez MCV (RBC) [Entitic vol] 89.1 fL Normal 80.0-94.0 [facility] Comment on above: Performed By: #### C BC #### [facility] [address] [place] [address] Dr. Anup Paez MONO # 0.5 103/ul Normal 0.3-0.8 [facility] Comment on above: Performed By: #### C BC #### [facility] [address] [address] [address] Anup Paez Monocytes/100 WBC (Bld) 5.5 % Normal 1.7-12.0 [facility] Comment on above: Performed By: #### C BC #### [facility] [address] [place] [address] Dr. Anup Paez NEUT # 6.6 103/ul Critically high 1.4-6.5 [facility] Comment on above: Performed By: #### C BC #### [facility] [address] [place] [address] Dr. Anup Paez Neutrophils/100 WBC (Bld) 78.8 % Critically high 43.0-75.0 [facility] Comment on above: Performed By: #### C BC #### [facility] [address] [place] [address] Dr. Anup Paez Platelet mean volume (Bld) [Entitic vol] 11.9 fL Normal 9.5-13.5 [facility] Comment on above: Performed By: #### C BC #### [facility] [address] [place] [address] Dr. Anup Paez PLT 140 103/ul Critically low 150-450 [facility] Comment on above: Performed By: #### C BC #### [facility] [address] [place] [address] Dr. Anup Paez RBC 4.85 106/ul Normal 4.70-6.10 [facility] Comment on above: Performed By: #### C BC #### [facility] [address] [place] [address] Dr. Anup Paez WBC 8.3 103/ul Normal 4.0-11.0 [facility] Comment on above: Performed By: #### C BC #### [facility] [address] [place] [address] Dr. Anup Paez FREE T3on 10-11-2022 FREE T3 2.36 pg/mlL Normal 2.18-3.98 [facility] Comment on above: Performed By: #### F T3 #### [facility] [address] [place] [address] Dr. Anup Paez FREE T4on 10-11-2022 Free T4 [Mass/Vol] 0.97 ng/dL Normal 0.76-1.46 [facility] Comment on above: Performed By: #### F T4 #### [facility] [address] [place] [address] Dr. Anup Paez TSHon 10-11-2022 TSH 0.231 uIU/mL Critically low 0.358-3.740 [facility] Comment on above: Performed By: #### T SH #### [facility] [address] [place] [address] Dr. Anup Paez CBC AUTO DIFFon 02-19-2022 BASO # 0.1 103/ul Normal 0.0-0.1 [facility] Comment on above: Performed By: #### C BC #### [facility] [address] [place] [address] Dr. Anup Paez Basophils/100 WBC (Bld) 1.1 % Normal 0.2-2.0 [facility] Comment on above: Performed By: #### C BC #### [facility] [address] [place] [address] Dr. Anup Paez EO # 0.2 103/ul Normal 0.0-0.7 [facility] Comment on above: Performed By: #### C BC #### [facility] [address] [place] [address] Dr. Anup Paez Eosinophils/100 WBC (Bld) 4.4 % Normal 0.9-7.0 [facility] Comment on above: Performed By: #### C BC #### [facility] [address] [place] [address] Dr. Anup Paez Erythrocyte distribution width (RBC) [Ratio] 12.9 % Normal 11.0-15.0 [facility] Comment on above: Performed By: #### C BC #### [facility] [address] [place] [address] Dr. Anup Paez Hematocrit (Bld) [Volume fraction] 44.4 % Normal 42.0-54.0 [facility] Comment on above: Performed By: #### C BC #### [facility] [address] [place] [address] Dr. Anup Paez Hemoglobin (Bld) [Mass/Vol] 14.4 g/dL Normal 14.0-18.0 [facility] Comment on above: Performed By: #### C BC #### [facility] [address] [place] [address] Dr. Anup Paez IG # 0.01 10e3/ul Normal 0.00-0.03 [facility] Comment on above: Performed By: #### C BC #### [facility] [address] [place] [address] Dr. Anup Paez IG % 0.2 % Normal 0.0-0.5 [facility] Comment on above: Performed By: #### C BC #### [facility] [address] [place] [address] Dr. Anup Paez LYMPH # 1.6 103/ul Normal 1.2-3.8 [facility] Comment on above: Performed By: #### C BC #### [facility] [address] [place] [address] Dr. Anup Paez Lymphocytes/100 WBC (Bld) 35.8 % Normal 20.5-60.0 [facility] Comment on above: Performed By: #### C BC #### [facility] [address] [place] [address] Dr. Anup Paez MANUAL DIFF REQ NO Normal [facility] Comment on above: Performed By: #### C BC #### [facility] [address] [place] [address] Dr. Anup Paez MCH (RBC) [Entitic mass] 30.1 pg Normal 25.9-34.0 [facility] Comment on above: Performed By: #### C BC #### [facility] [address] [address] [address] Anup Paez MCHC (RBC) [Mass/Vol] 32.4 g/dL Normal 29.9-35.2 [facility] Comment on above: Performed By: #### C BC #### [facility] [address] [address] [address] Anup Paez MCV (RBC) [Entitic vol] 92.7 fL Normal 80.0-94.0 [facility] Comment on above: Performed By: #### C BC #### [facility] [address] [address] [address] Anup Paez MONO # 0.5 103/ul Normal 0.3-0.8 [facility] Comment on above: Performed By: #### C BC #### [facility] [address] [place] [address] Dr. Anup Paez Monocytes/100 WBC (Bld) 11.6 % Normal 1.7-12.0 [facility] Comment on above: Performed By: #### C BC #### [facility] [address] [place] [address] Dr. Anup Paez NEUT # 2.1 103/ul Normal 1.4-6.5 [facility] Comment on above: Performed By: #### C BC #### [facility] [address] [place] [address] Dr. Anup Paez Neutrophils/100 WBC (Bld) 46.9 % Normal 43.0-75.0 [facility] Comment on above: Performed By: #### C BC #### [facility] [address] [place] [address] Dr. Anup Paez Platelet mean volume (Bld) [Entitic vol] 12.0 fL Normal 9.5-13.5 [facility] Comment on above: Performed By: #### C BC #### [facility] [address] [place] [address] Dr. Anup Paez PLT 107 103/ul Critically low 150-450 [facility] Comment on above: Performed By: #### C BC #### [facility] [address] [address] [address] Anup Paez RBC 4.79 106/ul Normal 4.70-6.10 [facility] Comment on above: Performed By: #### C BC #### [facility] [address] [address] [address] Anup Paez WBC 4.6 103/ul Normal 4.0-11.0 [facility] Comment on above: Performed By: #### C BC #### [facility] [address] [address] [address] Anup Paez LIPID PROFILEon 02-19-2022 CHOL-HDL RATIO NORM SEE BELOW Normal [facility] Comment on above: Result Comment: 3.3 - 4.4 LOW RISK 4.4 - 7.1 AVERAGE RISK 7.1 - 11.0 MODERATE RISK >11.0 HIGH RISK Performed By: #### C MP, LIPID #### [facility] [address] [place] [address] Dr. Anup Paez Cholesterol [Mass/Vol] 120 mg/dL Normal <=200 [facility] Comment on above: Performed By: #### C MP, LIPID #### [facility] [address] [address] [address] Anup Paez Cholesterol in HDL [Mass/Vol] 33 mg/dL Critically low 40-60 [facility] Comment on above: Performed By: #### C MP, LIPID #### [facility] [address] [address] [address] Anup Paez Cholesterol in LDL [Mass/Vol] 68.2 mg/dL Normal [facility] Comment on above: Performed By: #### C MP, LIPID #### [facility] [address] [place] [address] Dr. Anup Paez Cholesterol.total/C holesterol in HDL [Mass ratio] 3.6 {ratio} Normal [facility] Comment on above: Performed By: #### C MP, LIPID #### [facility] [address] [place] [address] Dr. Anup Paez HDL NORMAL > or = 60 mg/dl - LO W CARDIOVASCULAR RISK <40 mg/dl - HIGH CARDIOVASCULAR RISK Normal [facility] Comment on above: Performed By: #### C MP, LIPID #### [facility] [address] [place] [address] Dr. Anup Paez LDL CALC NORMAL SEE BELOW Normal [facility] Comment on above: Result Comment: <100 mg/dl OPTIMAL 100 - 129 mg/dl NEAR OR ABOVE OPTIMAL 130 - 159 mg/dl BORDERLINE HIGH 160 - 189 mg/dl HIGH >190 mg/dl VERY HIGH Performed By: #### C MP, LIPID #### [facility] [address] [place] [address] Dr. Anup Paez Triglyceride [Mass/Vol] 94 mg/dL Normal <=150 [facility] Comment on above: Performed By: #### C MP, LIPID #### [facility] [address] [place] [address] Dr. Anup Paez VLDL CALC 18.8 mg/dL Normal [facility] Comment on above: Performed By: #### C MP, LIPID #### [facility] [address] [place] [address] Dr. Anup Paez PROF 14(COMP METB)on 022 Albumin [Mass/Vol] 3.6 g/dL Normal 3.4-5.0 [facility] Comment on above: Performed By: #### C MP, LIPID #### [facility] [address] [place] [address] Dr. Anup Paez Albumin/Globulin [Mass ratio] 1.0 {ratio} Normal [facility] Comment on above: Performed By: #### C MP, LIPID #### [facility] [address] [place] [address] Dr. Anup Paez ALP [Catalytic activity/Vol] 97 U/L Normal 46-116 [facility] Comment on above: Performed By: #### C MP, LIPID #### [facility] [address] [place] [address] Dr. Anup Paez ALT [Catalytic activity/Vol] 33 U/L Normal 16-63 [facility] Comment on above: Performed By: #### C MP, LIPID #### [facility] [address] [place] [address] Dr. Anup Paez Anion gap [Moles/Vol] 11.5 mmol/L Normal [facility] Comment on above: Performed By: #### C MP, LIPID #### [facility] [address] [place] [address] Dr. Anup Paez AST [Catalytic activity/Vol] 21 U/L Normal 15-37 [facility] Comment on above: Performed By: #### C MP, LIPID #### [facility] [address] [place] [address] Dr. Anup Paez Bilirubin [Mass/Vol] 0.4 mg/dL Normal 0.2-1.0 [facility] Comment on above: Performed By: #### C MP, LIPID #### [facility] [address] [place] [address] Dr. Anup Paez Calcium [Mass/Vol] 8.5 mg/dL Normal 8.5-10.1 [facility] Comment on above: Performed By: #### C MP, LIPID #### [facility] [address] [place] [address] Dr. Anup Paez Chloride [Moles/Vol] 106 mmol/L Normal 98-107 [facility] Comment on above: Performed By: #### C MP, LIPID #### [facility] [address] [place] [address] Dr. Anup Paez CO2 [Moles/Vol] 26.3 mmol/L Normal 21.0-32.0 [facility] Comment on above: Performed By: #### C MP, LIPID #### [facility] [address] [place] [address] Dr. Anup Paez Creatinine [Mass/Vol] 1.26 mg/dL Normal 0.70-1.30 [facility] Comment on above: Performed By: #### C MP, LIPID #### [facility] [address] [place] [address] Dr. Anup Paez EGFR-AF PALAUAN >60 Normal >=60 [facility] Comment on above: Performed By: #### C MP, LIPID #### [facility] [address] [place] [address] Dr. Anup Paez EGFR-NON AF PALAUAN 57 mL/min/1.73m2 Critically low >=60 [facility] Comment on above: Performed By: #### C MP, LIPID #### [facility] [address] [place] [address] Dr. Anup Paez Globulin (S) [Mass/Vol] 3.6 g/dL Normal [facility] Comment on above: Performed By: #### C MP, LIPID #### [facility] [address] [place] [address] Dr. Anup Paez Glucose [Mass/Vol] 95 mg/dL Normal 74-106 [facility] Comment on above: Performed By: #### C MP, LIPID #### [facility] [address] [place] [address] Dr. Anup Paez Potassium [Moles/Vol] 3.8 mmol/L Normal 3.5-5.1 [facility] Comment on above: Performed By: #### C MP, LIPID #### [facility] [address] [place] [address] Dr. Anup Paez Protein [Mass/Vol] 7.2 g/dL Normal 6.4-8.2 [facility] Comment on above: Performed By: #### C MP, LIPID #### [facility] [address] [place] [address] Dr. Anup Paez Sodium [Moles/Vol] 140 mmol/L Normal 136-145 [facility] Comment on above: Performed By: #### C MP, LIPID #### [facility] [address] [place] [address] Dr. Anup Paez Urea nitrogen [Mass/Vol] 16.0 mg/dL Normal 7.0-18.0 [facility] Comment on above: Performed By: #### C MP, LIPID #### [facility] [address] [place] [address] Dr. Anup Paez Urea nitrogen/Creatinine [Mass ratio] 12.7 mg/mg Normal [facility] Comment on above: Performed By: #### C MP, LIPID #### [facility] [address] [place] [address] Dr. Anup Paez PSA Total (Not a Screen)on 0 04-01-2021 PSA Total (Not a Screen) 0.620 ng/mL Normal 0.000-4.000 [facility] Comment on above: Result Comment: PERF ORMED BY: [place] [id number] PATHOLOGIST TAP DANCER MARITZA MONTANO M.D. Performed By: #### P SATOTAL #### [address] XR ankle LT min 3V*on 2020 XR ankle LT min 3V* [facility] [place] [address] [place] [address] XRay Report Signed Patient: Maximino Clarke MR#: [id number] : 1955 Acct:[id number] Age/Sex: 65 / M ADM Date: 01/11/21 Loc: XDUCLY Room: Type: [facility] Attending Dr: Ailin PARRA Ordering Provider: [...] Dinora Brink M.D.01/11/2021 12:35 PM Dictation Location: [place] [address] Transcribed By: [facility] 01/11/21 1235 Dictated By: Dinora Brink MD 01/11/21 1234 Signed By: 01/11/21 1235 Normal [facility] Pulmonary Functionon 11-22-2 020 Pulmonary Function MR #: [id number] [facility] PT. Name: Maximino Clarke Date: 08/14/2020 Date [...] Scruggs MD Date Trans: 08/23/2020 05:28 P/ DIMITRIOS_JN:[id number] cc: Johanna Blandon M.D. [address] [place] [phone] [place] [facility] ARTERIAL BLOOD GAS W/COOXon 08-14-2020 BASE EXCESS 0 mmol/L Normal -2-3 [facility] Comment on above: Performed By: #### 4 0055 #### [facility] [address] [place] [address], [facility] COHB 1.2 % Normal 0.0-1.5 [facility] Comment on above: Performed By: #### 4 0055 #### [facility] [address] [place] [address], [facility] [employer] ROOM AIR Normal [facility] Comment on above: Performed By: #### 4 0055 #### [facility] [address] [place] [address], [facility] FIO2 0 % Normal [facility] Comment on above: Performed By: #### 4 0055 #### [facility] [address] [place] [address], [facility] HCO3 (Bld) [Moles/Vol] 23 mmol/L Normal 21-28 [facility] Comment on above: Performed By: #### 4 0055 #### [facility] [address] [place] [address], [facility] METHB 1.0 % Normal 0.0-1.5 [facility] Comment on above: Performed By: #### 4 0055 #### [facility] [address] [place] [address], [facility] Oxygen (Bld) [Partial pressure] 88 mm[Hg] Normal 83-108 [facility] Comment on above: Performed By: #### 4 0055 #### [facility] [address] [place] [address], [facility] Oxygen saturation in Blood 95.5 % Normal 94.0-97.0 [facility] Comment on above: Performed By: #### 4 0055 #### [facility] [address] [place] [address], [facility] PCO2 32 mmHg Low 35-45 [facility] Comment on above: Performed By: #### 4 0055 #### [facility] [address] [place] [address], [facility] pH (Bld) 7.46 [pH] High 7.35-7.45 [facility] Comment on above: Performed By: #### 4 0055 #### [facility] [address] THB 12.0 g/dL Normal 12.0-16.3 [facility] Comment on above: Performed By: #### 4 0055 #### [facility] [address] Pulmonary Functionon 020 Pulmonary Function MR #: [id number] [facility] PT. Name: Maximino Clarke Date: 05/11/2020 Date [...] Scruggs MD Date Trans: 05/23/2020 05:08 P/ [id number]_JN:[id number] cc: Johanna Blandon M.D. [address] [place] [address] [facility] [id number] Normal [facility] ARTERIAL BLOOD GAS W/COOXon 05-11-2020 BASE EXCESS -1 mmol/L Normal -2-3 [facility] Comment on above: Performed By: #### 4 0055 #### [facility] [address] [place] [address], [facility] COHB 1.5 % Normal 0.0-1.5 [facility] Comment on above: Performed By: #### 4 0055 #### [facility] [address] [place] [address], [facility] RA Normal [facility] Comment on above: Performed By: #### 4 0055 #### [facility] [address] [place] [address], [facility] FIO2 0 % Normal [facility] Comment on above: Performed By: #### 4 0055 #### [facility] [address] [place] [address], [place] HCO3 (Bld) [Moles/Vol] 22 mmol/L Normal 21-28 [facility] Comment on above: Performed By: #### 4 0055 #### [facility] [address] [place] [address], [facility] METHB 1.0 % Normal 0.0-1.5 [facility] Comment on above: Performed By: #### 4 0055 #### [facility] [address] Oxygen (Bld) [Partial pressure] 95 mm[Hg] Normal 83-108 [facility] Comment on above: Performed By: #### 4 0055 #### [facility] [address] Oxygen saturation in Blood 96.5 % Normal 94.0-97.0 [facility] Comment on above: Performed By: #### 4 0055 #### [facility] [address] PCO2 31 mmHg Low 35-45 [facility] Comment on above: Performed By: #### 4 0055 #### [facility] [address] pH (Bld) 7.46 [pH] High 7.35-7.45 [facility] Comment on above: Performed By: #### 4 0055 #### [facility] [address] THB 12.2 g/dL Normal 12.0-16.3 [facility] Comment on above: Performed By: #### 4 0055 #### [facility] [address] *SARS-CoV-2 COVID-19on 05-08 [id number] Not Detected Normal Not Detected [facility] Comment on above: Order Comment: The A ptima SARS-CoV-2 assay is a nucleic acid amplification test intended for the qualitative detection of RNA from SARS-CoV-2 isolated and purified from nasopharyngeal (COMMERCIAL AIRLINE PILOT),oropharyngeal (OP), nasal swab, sputum, and bronchoalveolar lavage (BAL) specimens from patients with signs and symptoms of infection who are suspected of COVID-19. Results are for the identification of SARS-CoV-2 RNA. The SARS-CoV-2 RNA is generally detectable during the acute phase of infection. The Aptima SARS-CoV-2 Assay on the [place] [employer] [place] [employer] system is intended for use by laboratory personnel specifically instructed and trained in the operation of the [place] [employer] [place] Fusion system. The Aptima SARS-CoV-2 assay is [...] information. Performed By: #### 3 1792 #### [address] CHEST HIGH RESOLUTION WIT HOUT CONTRASTon 04-22-2020 CT CHEST HIGH RESOLUTION WITHOUT CONTRAST [facility] Department of Radiology [address] [place] [phone] Patient Name: MAXIMINO CLARKE : 1955 Sex: M Age: Race: Black Pt. Location: [facility] Patient Status: O Ordered Date: 03/20/2020 1:35:00 PM Completed Date: 04/22/2020 09:10 AM Requesting Provider: NICKY BORDEN Attending Provider: NICKY BORDEN Report Copy To: JOHANNA BLANDON Signs & Symptoms: J84.9 Interstitial pulmonary disease, unspecified I10 History: [facility] [address] ct chest. auth#[id number] valid 03/24-06/24/2020 phone: [phone] No to all COVID questions - jlr [...] achievable Electronically signed: Ana Dhillon. Transcribed by: [email or web address], User Resident: Electronically Signed by: ANA DHILLON @ 04/22/2020 12:42 PM Normal [facility] Comment on above: Order Comment: Brian cols: inspiratory and excpiratory films for air trapping *SARS-CoV-2 COVID-19on 03-19 [id number] Not Detected Normal Not Detected [facility] Comment on above: Order Comment: The A ptima SARS-CoV-2 assay is a nucleic acid amplification test intended for the qualitative detection of RNA from SARS-CoV-2 isolated and purified from nasopharyngeal (COMMERCIAL AIRLINE PILOT), nasal and oropharyngeal (OP) swab specimens from patients with signs and symptoms of infection who are suspected of COVID-19. Results are for the identification of SARS-CoV-2 RNA. The SARS-CoV-2 RNA is generally detectable in nasopharyngeal and oropharyngeal swabs during the acute phase of infection. The Aptima SARS-CoV-2 Assay on the [employer] Fusion system is intended for use by laboratory personnel specifically instructed and trained in the operation of the [place] and [employer] Fusion system. The Aptima SARS-CoV-2 assay is [...] information. Performed By: #### 3 1792 #### [facility] [address] [facility]. [address] Pulmonary Functionon 10-2 020 Pulmonary Function MR #: [id number] [facility] PT. Name: Maximino Clarke Date: 01/25/2019 Date [...] + coving terminally( suggesting minor small airway aberration/obstructio n). SPIROMETRY: The forced vital capacity is 3.73 [...] Mcdermott MD Date Trans: 12/10/2019 12:08 Carlin/ DIMITRIOS_JN:[id number] cc: Johanna Blandon M.D. [address] [place] [phone] [facility] Vital Signs Date Time Vital Sign Value Performing Clinician Facility 12-04-2023 08:58-0500 Blood Pressure Location Jim BAH [facility] 12-04-2023 08:58-0500 Body temperature 98.42 [degF] Jim BAH [facility] 12-04-2023 08:58-0500 Diastolic blood pressure 92 mm[Hg] Jim BAH [facility] 12-04-2023 08:58-0500 Heart rate 90 /min Jim BAH [facility] 12-04-2023 08:58-0500 Respiratory rate 17 /min Jim BAH [facility] 12-04-2023 08:58-0500 Systolic blood pressure 155 mm[Hg] Jim BAH [facility] 07-14-2023 13:35-0400 Diastolic blood pressure 108 mm[Hg] Mary Ellen Emilee [facility] 07-14-2023 13:35-0400 Mean blood pressure 125 mm[Hg] Mary Ellen Emilee [facility] 07-14-2023 13:35-0400 Systolic blood pressure 158 mm[Hg] Mary Ellen Emilee [facility] 11-22-2022 15:37-0500 Blood Pressure Location Grzegorz NILL [facility] 11-22-2022 15:37-0500 Diastolic blood pressure 90 mm[Hg] Grzegorz NILL [facility] 11-22-2022 15:37-0500 Heart rate 68 /min Grzegorz NILL [facility] 11-22-2022 15:37-0500 Respiratory rate 16 /min Grzegorz NILL [facility] 11-22-2022 15:37-0500 Systolic blood pressure 126 mm[Hg] Grzegorz NILL [facility] Encounters Encounter Date Encounter Type Care Provider Facility Start: 12-09-2024 ambulatory Jim Nami ty:[facility] Start: 01-02-2024 ambulatory Mary Ellen L Emliee Facility: [facility] Start: 12-28-2023 End: 12-29-2023 ambulatory Mary Ellen L Emilee Facility:[facility] Start: 12-08-2023 End: 12-08-2023 ambulatory [facility] Start: 12-04-2023 End: 12-05-2023 ambulatory Jim BAH Facility:[facility] Start: 12-04-2023 End: 12-04-2023 Patient encounter procedure Jim BAH [facility] Start: 10-13-2023 End: 10-14-2023 ambulatory Mary Ellen L Emilee Facility:[facility] Start: 10-06-2023 End: 10-06-2023 ambulatory KAT [facility] Start: 08-30-2023 End: 08-31-2023 ambulatory Mary Ellen L Emilee Facility:[facility] Start: 07-14-2023 End: 07-15-2023 ambulatory Mary Ellen L Emilee [facility] Start: 07-14-2023 End: 07-14-2023 Lab Drop off Mary Ellen L Emilee [facility] Start: 02-08-2023 ambulatory Mary Ellen Emilee Facility: [facility] Start: 12-28-2022 End: 12-28-2022 Patient encounter procedure Grzegorz Argenis BUSTILLO [facility] Start: 12-14-2022 End: 12-14-[address] JOHANNA BLANDON . Facility:[facility] Start: 11-22-2022 End: 11-22-2022 Patient encounter procedure Grzegorz R ANGELL [facility] Nill/[facility] Start: 10-11-2022 End: 10-12-[address] JOHANNA BLANDON . Facility:[facility] Start: 02-24-2022 Encounter for genera l adult medical examination without abnormal findings DR JOHANNA BLANDON . [facility] Start: 02-19-2022 End: 02-20-[address] JOHANNA BLANDON . Facility:[facility] Start: 02-19-2022 End: 02-20-2022 Encounter for general adult medical examination without abnormal findings DR JOHANNA BLANDON . Facility:[facility] Procedures Date Procedure Procedure Detail Performing Clinician Start: 12-14-2022 Colonoscopy Grzegorz NI LL Start: 02-19-[address] JOHANNA LEDEZMA . Comment on above: Performed By: #### P [facility] #### [facility] [address] [place] [address] Dr. Anup Paez Start: 04-29-2019 Transrectal biopsy o f prostate using ultrasound guidance Grzegorz NILL Start: 07-17-2017 Cystoscopy w/UD Grzegorz NILL Start: 04-09-2014 Cystoscopy Grzegorz NI LL Comment on above: w/green light laser of prostate Start: 09-11-2013 Colonoscopy Grzegorz NI LL Cardiac catheterization Mateus ael NILL Cardiac Stent Grzegorz NILL Extraction of cataract Patri ayaan BAH Fluid Removed from Lungs Jax hael NILL Partial resection of colon M humphrey NILL Immunizations Immunization Date Immunization Notes Care Provider [facility] 06-09-2022 influenza virus vaccine, unspecified formulation Grzegorz NILL [facility] 09-21-2021 SARS-CoV-2 (COVID-19 ) mRNA BNT-162b2 vax Grzegorz NILL [facility] 01-05-2021 SARS-CoV-2 (COVID-19 ) mRNA BNT-162b2 vax Grzegorz NILL [facility] 12-14-2020 SARS-CoV-2 (COVID-19 ) mRNA BNT-162b2 vax Grzegorz NILL [facility] Payers Date Payer Category Payer Medicare [id number] 1957 Medicare [id number] 1957 Unknown [id number] 1957 Unknown [id number] 1955 Unknown [id number] 2.16.84 [id number] 1955 Unknown [id number] 2.16.84 [id number] 1955 Unknown [id number] 2.16.84 [id number] 1955 Unknown [id number] 2.16.8 [id number] 1955 Unknown [id number] 2.16.8 [id number] 1955 Unknown [id number] 2.16.8 [id number] 1955 Unknown [id number] 2.16.8 [id number] 1955 Unknown [id number] 2.16.8 [id number] 1955 Unknown [id number] 2.16.8 [id number] 1955 Unknown [id number] 2.16.8 [id number] 1955 Unknown [id number] 2.16.8 [id number] Social History Date Type Detail Facility Start: 11-22-2022 End: 12-04-2023 Tobacco smoking status Never smoked tobacco (finding) [facility] Tobacco smoking status Never [facility] Sex Assigned At Male [facility] Functional Status Date Assessment Result Facility 12-04-2023 Functional Status N/A [facility] 11-22-2022 Functional Status N/A [facility] Progress note 12-08-2023 Note Date & Type Note Facility 12-08-2023 Note Cardiology Clinic No te Chief Complaint: chest pain HPI: Maximino Clarke is a 68 y.o. male with a past medical history including hypertension, hyperlipidemia, and CAD with PCI in 2010. Patient was referred to cardiology clinic for atypical chest pain. After his referral, cardiac testing including stress test and echocardiogram were performed. Treadmill stress test was positive for his exercise-induced ischemic EKG changes. However, the nuclear portion did not demonstrate any reversible ischemia. Echocardiogram was performed and Demonstrated moderate concentric left ventricular hypertrophy with EF of 50 to 55%. Patient has grade 2 diastolic dysfunction and a moderately elevated right-sided pressures with RVSP of 48 mmHg. He was noted to have mild to moderate dilation of the ascending aorta measuring 4.0 cm. Patient presents for follow-up today. He states that overall, he is doing better. He still occasionally has left-sided flank pain that occurs only with rest. He is physically active, he adamantly denies any chest pain or flank pain with exertion. He continues to have occasional shortness of breath. He denies any lower extreme edema, orthopnea, or paroxysmal nocturnal dyspnea. He does state that his blood pressure has been elevated at home, and his blood pressure medications were recently adjusted by his primary care physician. Cardiology ROS: GENERAL: Denies fever, chills, night [...] 1 tablet by mouth in the morning. carvedilol (Coreg) 6.25 mg tablet Take 1 tablet (6.25 mg) by mouth with breakfast and with evening meal. 180 tablet 3 cholecalciferol (Vitamin D-3) 25 MCG (1000 UT) [...] puff in the morning and at bedtime. rosuvastatin (Crestor) 20 mg tablet Take 1 tablet (20 mg) by mouth in the morning. 90 tablet 3 No current facility-administered medications on file prior to visit. Allergies Patient has no known allergies. Physical Exam VITAL SIGNS: BP (!) 140/100 (BP Location: Left arm, Patient Position: Sitting, BP Cuff Size: Adult) Pulse 66 Resp 11 Ht 1.727 m (5' 8 ) Wt 93.4 kg (206 lb) SpO2 95% BMI 31.32 kg/m??? Constitutional: Well developed, Well nourished, No [...] Radiology: CT chest wo IV contrast Narrative: [facility] (more content not included)... [facility] Hospital Discharge instructions 12-04-2023 Note Date & Type Note Facility 12-04-2023 Hospital Discharge instructions Patient Education 12/04/2023 09:41:45 Benign Prostatic Hyperplasia Benign Prostatic Hyperplasia Benign prostatic hyperplasia (BPH) is an enlarged prostate gland that is caused by the normal aging process. The prostate may get bigger as a man gets older. The condition is not caused by cancer. The prostate is a walnut-sized gland that is involved in the production of semen. It is located in front of the rectum and below the bladder. The bladder stores urine. The urethra carries stored urine out of the body. An enlarged prostate can press on the urethra. This can make it harder to pass urine. The buildup of urine in the bladder can cause infection. Back pressure and infection may progress to bladder damage and kidney (renal) failure. What are the causes? This condition is part of the normal aging process. However, not all men develop problems from this condition. If the prostate enlarges away from the urethra, urine flow will not be blocked. If it enlarges toward the urethra and compresses it, there will be problems passing urine. What increases the risk? This condition is more likely to develop in men older than 50 years. What are the signs or symptoms? Symptoms of this condition include: Getting up often during the night to urinate. Needing to urinate frequently during the day. Difficulty starting urine flow. Decrease in size and strength of your urine stream. Leaking (dribbling) after urinating. Inability to pass urine. This needs immediate treatment. Inability to completely empty your bladder. Pain when you pass urine. This is more common if there is also an infection. Urinary tract infection (UTI). How is this diagnosed? This condition is diagnosed based on your medical history, a physical exam, and your symptoms. Tests will also be done, such as: A post-void bladder scan. This measures any amount of urine that may remain in your bladder after you finish urinating. A digital rectal exam. In a rectal exam, your health care provider checks your prostate by putting a lubricated, gloved finger into your rectum to feel the back of your prostate gland. This exam detects the size of your gland and any abnormal lumps or growths. An exam of your urine (urinalysis). A prostate specific antigen (PSA) screening. This is a blood test used to screen for prostate cancer. An ultrasound. This test uses sound waves to electronically produce a picture of your prostate gland. Your health care provider may refer you to a specialist in kidney and prostate diseases (urologist). How is this treated? Once symptoms begin, your health care provider will monitor your condition (active surveillance or watchful waiting). Treatment for this condition will depend on the severity of your condition. Treatment may include: Observation and yearly exams. This may be the only treatment needed if your condition and symptoms are mild. Medicines to relieve your symptoms, including: ?Medicines to shrink the prostate. ?Medicines to relax the muscle of the prostate. Surgery in severe cases. Surgery may include: ?Prostatectomy. In this procedure, the prostate tissue is removed completely through an open incision or with a laparoscope or robotics. ?Transurethral resection of the prostate (TURP). In this procedure, a tool is inserted through the opening at the tip of the penis (urethra). It is used to cut away tissue of the inner core of the prostate. The pieces are removed through the same opening of the penis. This removes the blockage. ?Transurethral incision (TUIP). In this procedure, small cuts are made in the prostate. This lessens the prostate's pressure on the urethra. ?Transurethral microwave thermotherapy (TUMT). This procedure uses microwaves to create heat. The heat destroys and removes a small amount of prostate tissue. ?Transurethral needle ablation (TUNA). This procedure uses radio frequencies to destroy and remove a small amount of prostate tissue. ?Interstitial laser coagulation (ILC). This procedure uses a laser to destroy and remove a small amount of prostate tissue. ?Transurethral electrovaporization (TUVP). This procedure uses electrodes to destroy and remove a small amount of prostate tissue. ?Prostatic urethral lift. This procedure inserts an implant to push the lobes of the prostate away from the urethra. Follow these instructions at home: Take peye-wad-sszvzak and prescription medicines only as told by your health care provider. Monitor your symptoms for any changes. Contact your health care provider with any changes. Avoid drinking large amounts of liquid before going to bed or out in public. Avoid or reduce how much caffeine or alcohol you drink. Give yourself time when you urinate. Keep all follow-up visits. This is important. Contact a health care provider if: You have unexplained back pain. Your symptoms do not get better with treatment. You develop side effects from the medicine you are taking. Your urine becomes very dark or has a bad smell. Your lower abdomen becomes distended and you have trouble passing urine. Get help right away if: You have a fever or chills. You suddenly cannot urinate. You feel light-headed or very dizzy, or you faint. There are large amounts of blood or clots in your urine. Your urinary problems become hard to manage. You develop moderate to severe low back or flank pain. The flank is the side of your body between the ribs and the hip. These symptoms may be an emergency. Get help right away. Call 911. Do not wait to see if the symptoms will go away. Do not drive yourself to the hospital. Summary Benign prostatic hyperplasia (BPH) is an enlarged prostate that is caused by the normal aging process. It is not caused by cancer. An enlarged prostate can press on the urethra. This can make it hard to pass urine. This condition is more likely to develop in men older than 50 years. Get help right away if you suddenly cannot urinate. This information is not intended to replace advice given to you by your health care provider. Make sure you discuss any questions you have with your health care provider. Document Revised: 04/06/2022 Document Reviewed: 04/06/2022 [employer] Patient Education 2022 [employer]. Follow Up Care 08/29/2023 09:19:56 With:Jim BAH MD, URL Address: [facility] [address] [place] [place] [address]- [phone] When:Within 1 Year(s) Comments:with PSA With:Jim BAH MD, URL Address: [facility] [address] [place] [address]- [phone] When: Unknown [facility] Progress note 10-06-2023 Note Date & Type [...] Radiology: CT chest wo IV contrast Narrative: [facility] Department of Radiology [address] [place] [id number] Patient Name: MAXIMINO CLARKE : 1955 Sex: M Age: Race: Black^Black/ Pt. Location: [facility] Patient Status: O Ordered Date: 03/20/2020 1:35:00 PM Completed Date: 04/22/2020 09:10 AM Requesting Provider: NICKY BORDEN Attending Provider: NICKY BORDEN Report Copy To: JOHANNA BLANDON Signs & Symptoms: J84.9 Interstitial pulmonary disease, unspecified I10 History: [facility] [address] ct chest. auth#[id number] valid 03/24-06/24/2020 phone: [phone] No to all COVID questions - jlr Comments: Protocols: inspiratory and excpiratory films for air trapping Exam: CT CHEST HIGH RESOLUTION WITHOUT CONTRAST (more content not included)... [facility] Progress note 10-06-2023 Note Date & Type Note Facility 10-06-2023 Note New patient here to establish care. Ref from Dr. Barlow for CAD. Underwent PCI at [facility] in April 2011. He has been having chest pain the past few months, which occurs with rest. He gets SOB only with stairs and/or elevation. Denies palpitations and lightheadedness. Review of Systems Cardiovascular: Positive for chest pain and dyspnea on exertion. All other systems reviewed and are negative. [facility] Clinical Note 12-14-2022 Note Date & Type [...] good condition. CC: Johanna Blandon M.D. [facility] Evaluation + Plan note Note Date & Type Note Facility Evaluation + Plan note No data available for this section General Surgery [facility] Evaluation + Plan note Note Date & Type Note Facility Evaluation + Plan note Future Appointments Appointment Date:10/13/2023 01:00:00 PM Scheduled Provider:Mary Ellen Dela Cruz Location:[facility] Appointment Type:[facility] Evaluation + Plan note Note Date & Type Note Facility Evaluation + Plan note Future Appointments Appointment Date:12/09/2024 08:45:00 AM Scheduled Provider:Jim BAH MD Location:[facility] Appointment Type:URO Office Visit Diagnostic Tests PendingPSA Total 12/04/23 [facility] Discharge instructions Note Date & Type Note Facility Hospital Discharge instructions No data available for this section General Surgery [facility] note Note Date & Type Note Facility Progress note No data available for this section General Surgery [facility] Summary Purpose Family History No Family History Records FoundNo Family History Records FoundNo Family History Records Found No data available for this section No data available for this section No [...] section and content) DATE CREATED AUTHOR 09/11/2020 [facility] DATE CREATED AUTHOR AUTHOR'S ORGANIZ ATION 11/20/2021 [facility] DATE CREATED AUTHOR AUTHOR'S ORGANIZ ATION 12/21/2022 [facility] DATE CREATED AUTHOR AUTHOR'S ORGANIZ ATION 12/09/2023 [facility] DATE CREATED AUTHOR AUTHOR'S ORGANIZ ATION 01/02/2024 [facility] Patient Care team informatio n (unrecognized section and content) Personnel Name: JOHANNA BLANDON MD Address: Address: [address] [place] [address] Personnel Name: JOHANNA BLANDON MD Address: Address: [address] [place] [address] Personnel Name: Mary Ellen Dela Cruz Address: Address: [address] [place] [address]- Personnel Name: Mary Ellen Dela Cruz Address: Address: [address] [place] [address]- FOR RECORDS PERTAINING TO PATIENTS WHO ARE [...] THE PRIMARY CLINICAL RECORDS. [facility] [employer] [facility]. provides no warranty or guarantee of the accuracy or completeness of information in this document.
== END 2024-01-03 09:47 | disposition home or self-care (01) ==
LOC: US 09:46
PROVIDERS: PCP Nurse Practitioner; Visit Provider Nurse Practitioner
DX: R10.84 Generalized abdominal pain (principal); K80.20 Calculus of gallbladder without cholecystitis without obstruction; K86.2 Cyst of pancreas; N20.0 Calculus of kidney
CPT/HCPCS: 76700; 76706

== ENCOUNTER 2024-01-24 12:45 | Outpatient (OUT) | payer OTHER, MEDICARE, SELFPAY ==
--- NOTE | 2024-01-24 13:04 | CT_ITS ---
[address] [address] Patient Name: MAXIMINO CLARKE MRN: [id number] date: 1955 Sex: M Assigned Patient Location: CT Current Patient Location: CT Accession/Order Number: [id number] Exam Date: 01/24/2024 13:25 Report Date: 01/24/2024 15:02 At the request of: STEFFANIE WAGNER Procedure: CT abdomen wo/w con EXAMINATION: CT abdomen wo/w con HISTORY: complex cysts with neck/body of pancreas COMPARISON: Ultrasound abdomen complete 01/03/2024, CT chest 11/12/2020 TECHNIQUE: Axial, Coronal, and Sagittal images were obtained without and/or with IV contrast as indicated by examination type. Dose reduction techniques were achieved by using automated exposure control and/or adjustment of mA and/or kV according to patient size and/or use of iterative reconstruction technique FINDINGS: LUNG BASES: No visible pulmonary or pleural disease. LIVER: Stable small cysts versus hemangiomas within right hepatic lobe. BILIARY: Gallbladder is partially filled with 1 cm stones. No appreciable obstruction or acute inflammatory changes. PANCREAS: 2 adjacent low density lesions within body of pancreas, approximately 12 mm in diameter each. Both measure fluid density on noncontrast sequences and demonstrate minimally increased density on contrast sequences. SPLEEN: No enlargement or focal lesion. ADRENALS: No mass or enlargement. KIDNEYS: No mass, obstruction, or calcification. BOWEL/MESENTERY: No visible mass, obstruction, or bowel wall thickening. AORTA/VASCULAR: No aneurysm or dissection. RETROPERITONEUM: No mass or adenopathy. ABDOMINAL WALL: No mass or hernia. BONES: No bony lesion or fracture. OTHER: Negative. CT/CT abdomen wo/w con IMPRESSION: 1. 2 small adjacent lesions within body of pancreas suspected to represent benign pseudocyst. One of these was partially visible on the 2020 CT study and appears grossly stable. The other was below the level of imaging. Consider follow-up CT chest in 3-6 months to document stability. 2. Cholelithiasis. Electronically authenticated by: EMMANUEL LEE Date: 01/24/2024 15:02
[2024-01-24 13:05] LABS: Estimated GFR (African America >60 (>=60); Estimated GFR (Non-African Ame 51 (>=60)
== END 2024-01-24 12:46 | disposition home or self-care (01) ==
LOC: CT 12:45
PROVIDERS: PCP Nurse Practitioner; Visit Provider Nurse Practitioner
DX: K86.2 Cyst of pancreas (principal); K80.20 Calculus of gallbladder without cholecystitis without obstruction
CPT/HCPCS: 36415; 74170; 82565; Q9967

== ENCOUNTER 2024-05-07 08:46 | Outpatient (OUT) | payer MEDICARE, SELFPAY ==
--- OUTSIDE RECORDS SUMMARY | 2024-05-07 08:52 | XMS_ITS | CCD ---
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 Name Role Phone JOHANNA BLANDON Primary Care [...] Physician Mary Ellen Hebert Primary Care Physician [phone] KAT VASQUEZ Attending Unavailable KAT VASQUEZ Attending Unavailable EmileeMary Ellen Attending Unavailable BAHJim Attending Unavailable BAHJim Attending Unavailable EmileeMary Ellen Attending Unavailable EmileeMary Ellen Admitting Unavailable EmileeMary Ellen Referring Unavailable Letty Ryan Attending Unavaila ble EmileeMary Ellen Attending Unavailable Emilee, Mary Ellen Daniel Attending Unavailable EmileeMary Ellen Attending Unavailable EmileeMary Ellen Attending Unavailable ALASTAL, YASEEN S Admitting Unavailable ALASTAL, YASEEN S Attending Unavailable ALASTAL, YASEEN S Attending Unavailable ALASTAL, YASEEN S Referring Unavailable SHERLY BIGGS Attending Unavailable Allergies Allergy Classification Reported Allergen(s) Allergy Type Date of Onset Reaction(s) Facility Unclassified (1 source) No Known Medication Allergies; 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: [No Known Medication Allergies] Propensity to adverse reactions (disorder) [facility] Repository Medications Current Medications Medication Drug Class(es) Dates Sig (Normalized) Sig (Original) albuterol 0.83 mg/ml inhalation solution (3 sources) beta2-Adrenergic Agonist Start: 07-14-2023 take 2.5 mg by inhalation every six hours albuterol 0.083% Inh Anne 3 mL 2.5 mg, 3 mL, NEB, q6hr, Refill(s) 0 Start Date: 07/14/23 Status: Ordered 24 hr alfuzosin hydrochloride 10 mg extended release oral tablet (3 sources) alpha-Adrenergic Gurpreet Start: 04-25-2024 take 10 mg by mouth once daily Alfuzosin Active 10 MG PO Daily April 25, 2024 12:00am Start: 12-04-2023 take 1 tablet by oma once daily alfuzosin 10 mg ER Tab 10 mg = 1 tab(s), Oral, Daily, # 30 tab(s), Refills(s) 11, Pharmacy: [facility] #[id number], 174, cm, 12/04/23 9:07:00 EST, Height/Length Dosing, 90, kg, 12/04/23 9:07:00 EST, Weight Dosing Start Date: 12/04/23 Status: Ordered aspirin 81 mg delayed release oral tablet (6 sources) Platelet Aggregation Inhibitor, Nonsteroidal Anti-inflammatory Drug Start: 04-25-2024 take 81 mg by mouth once daily Aspirin Active 81 MG PO Daily April 25, 2024 12:00am Start: 04-25-2019 aspirin 81 mg, Chewed, Daily Start Date: 04/25/19 Status: Ordered 60 actuat budesonide 0.09 mg/actuat dry powder inhaler (3 sources) Corticosteroid Start: 07-14-2023 Pulmicort Flex haler 90 mcg/inh inhalation powder 1 inh, Inhalation, BID, 1 EA, Refill(s) 11, [facility] #[id number], 172.7, cm, 07/14/23 13:11:00 EDT, Height/Length Dosing, 92, kg, 07/14/23 13:11:00 EDT, Weight Dosing Start Date: 07/14/23 Status: Ordered carvedilol 12.5 mg oral tablet (3 sources) alpha-Adrenergic Gurpreet, beta-Adrenergic Gurpreet Start: 04-25-2024 take 12.5 mg by mouth twice daily Carvedilol Active 12.5 MG PO Twice daily April 25, 2024 12:00am Start: 02-08-2024 take 1 tablet by oma twice daily carvedilol 12.5 mg Tab 12.5 mg = 1 tab(s), Oral, BID, # 180 tab(s), Refills(s) 3, Pharmacy: [facility] #[id number], 174, cm, 01/02/24 10:21:00 EDT, Height/Length Dosing, 93.4, kg, 01/02/24 10:21:00 EDT, Weight Dosing Start Date: 02/08/24 Status: Ordered Start: 10-13-2023 take 1 tablet by oma twice daily carvedilol 6.25 mg Tab 6.25 mg = 1 tab(s), Oral, BID, Refills(s) 0 Start Date: 10/13/23 Status: Ordered cholecalciferol 0.025 mg oral capsule (1 source) Vitamin D Start: 04-25-2024 take 25 ug by mouth once daily Cholecalciferol (Vitamin D3) Active 25 MCG PO Daily April 25, 2024 12:00am CPap supplies (1 source) Start: 02-08-2024 CPap supplies CPap supplies, See Instructions, 2 EA, 1, Use for Sleep apnea, Supply Start Date: 02/08/24 Status: Ordered D3 1000 intl units (25 mcg) oral tablet (3 sources) Start: 07-14-2023 take 1 tablet by mouth once daily D3 1000 intl units (25 mcg) oral tablet 25 mcg = 1 tab(s), Oral, Daily, Refills(s) 0 Start Date: 07/14/23 Status: Ordered esomeprazole 40 mg delayed release oral capsule (2 sources) Proton Pump Inhibitor Start: 04-25-2024 take 40 mg by mouth once daily Esomeprazole Magnesium Active 40 MG PO Daily April 25, 2024 12:00am Start: 04-01-2024 take 1 capsule by mo [facility] once daily Nexium 40 mg Cap-EC 40 mg = 1 cap(s), Oral, Daily, # 90 cap(s), Refills(s) 0, [id number], 174, cm, 04/01/24 9:33:00 EDT, Height/Length Dosing, 89, kg, 07/01/24 9:33:00 EDT, Weight Dosing Start Date: 04/01/24 Status: Ordered hydroCHLOROthiazide 25 mg oral tablet (1 source) Thiazide Diuretic Start: 04-25-2024 take 25 mg by mouth once daily in the morning Hydrochlorothiazide Active 25 MG PO Every morning April 25, 2024 12:00am hydroCHLOROthiazide 12.5 mg / losartan potassium 100 mg oral tablet (3 sources) Thiazide Diuretic, Angiotensin 2 Receptor Gurpreet Start: 07-12-2023 End: 08-11-2023 hydrochlorothiazide-lo sartan 12.5 mg-100 mg oral tablet 1 tab(s), Oral, Daily for 30 day(s), 30 tab(s), Refill(s) 0, [facility] #[id number], 172.7, cm, 11/22/22 15:44:00 EST, Height/Length Dosing, 92.5, kg, 11/22/22 15:44:00 EST, Weight Dosing Start Date: 07/12/23 Stop Date: 08/11/23 Status: Ordered Start: 11-03-2022 take 1 tablet by oma once daily hydrochlorothiazide-losartan 12.5 mg-100 mg oral tablet 1 tab(s), Oral, Daily, Refill(s) 0 Start Date: 11/03/22 Status: Ordered losartan potassium 25 mg oral tablet (1 source) Angiotensin 2 Receptor Gurpreet Start: 04-25-2024 take 25 mg by mouth once daily Losartan Active 25 MG PO Daily April 25, 2024 12:00am 24 hr metoprolol succinate 25 mg extended [...] Ordered rosuvastatin calcium 20 mg oral tablet (3 sources) HMG-CoA Reductase Inhibitor Start: 04-25-2024 take 20 mg by mouth once daily Rosuvastatin Active 20 MG PO Daily April 25, 2024 12:00am Start: 10-13-2023 take 1 tablet by oma th once daily rosuvastatin 20 mg Tab 20 [...] Active Problems Problem Classification Problem Date Documented Date Episodic/Chronic Abdominal pain (2 sources) Abdominal pain; 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: [Unspecified abdominal pain] Onset: 4 Episodic Aortic; peripheral; and visceral artery aneurysms (2 sources) Aortic ectasia, unspecified site; 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: [Aortic ectasia, unspecified site] Onset: 4 Chronic Biliary tract disease (6 sources) Gallstone; 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: [Biliary calculus] 04-25-2019 Episodic Chronic kidney disease (2 sources) Chronic kidney disease stage 3; 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: [Stage 3 chronic kidney disease] 04-25-2024 Chronic Chronic obstructive pulmonary disease and bronchiectasis (11 sources) Chronic obstructive lung disease; 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: [Pulmonary emphysema] Onset: 3 11-03-2022 Chronic Coagulation and hemorrhagic disorders (2 sources) Thrombocytopenic disorder; 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: [Thrombocytopenia, unspecified] 04-25-2024 Chronic Coronary atherosclerosis and other heart disease (8 sources) Coronary arteriosclerosis; 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: [Atherosclerotic heart disease of [place] coronary artery without angina pectoris] Onset: 3 04-25-2019 Chronic Coronary atherosclerosis and other heart disease (1 source) Presence of coronary angioplasty implant and graft; 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: [PRESENCE COR ANGPLSTY IMPLANT AND GRAFT] Onset: 3 Episodic Disorders of lipid metabolism (8 sources) Hyperlipidemia; 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: [Hyperlipidemia, unspecified] Onset: 3 04-25-2019 Chronic Diverticulosis and diverticulitis (1 source) Diverticulosis of large intestine without perforation or abscess without bleeding; 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: [DVRTCLOS LG INT NO PERF/ABSC W/O BL] Onset: 3 Chronic Essential hypertension (6 sources) Hypertensive disorder; 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: [Essential (primary) hypertension] Onset: 3 04-25-2019 Chronic Gastrointestinal hemorrhage (17 sources) Melena; 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: [Melena] Onset: 3 Episodic Genitourinary symptoms and ill-defined conditions (20 sources) Ronny hematuria; 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: [Nocturia] Onset: 3 05-13-2019 Episodic Headache; including migraine (2 sources) Headache 08-30-2023 Episodic Hyperplasia of prostate (9 sources) Benign prostatic hypertrophy with outflow obstruction; 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: [Benign prostatic hyperplasia with lower urinary tract symptoms] Onset: 3 05-04-2020 Chronic Hypertension with complications and secondary hypertension (4 sources) Hypertensive heart disease without heart failure; 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: [Chronic kidney disease due to hypertension] Onset: 4 Chronic Malaise and fatigue (5 sources) Chronic fatigue syndrome 11-03-2022 Chronic Malaise and fatigue (4 sources) Other fatigue; 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: [Fatigue] Onset: 3 07-14-2023 Episodic Noninfectious gastroenteritis (1 source) Noninfective gastroenteritis and colitis, unspecified; 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: [NONINFECTIVE GE AND COLITIS UNS] Onset: 3 Episodic Nonspecific chest pain (2 sources) Chest pain, unspecified; 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: [Chest pain, unspecified] Onset: 4 Episodic Other aftercare (1 source) [facility] (current) use of aspirin; 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: [PHYSICAL THERAPY PROFESSOR CURRENT USE OF ASPIRIN] Onset: 3 Episodic Other diseases of kidney and ureters (1 source) Secondary hyperparathyroidism; 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: [Secondary hyperparathyroidism of renal origin] 04-25-2024 Chronic Other diseases of kidney and ureters (1 source) Secondary hyperparathyroidism of renal origin; 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: [Secondary hyperparathyroidism (of renal origin)] 04-25-2024 Chronic Other lower respiratory disease (5 sources) Fibrosis of lung 11-03-2022 Chronic Other lower respiratory disease (2 sources) Cough 08-30-2023 Episodic Other nutritional; endocrine; and metabolic disorders (5 sources) Body mass index 30+ - obesity 11-22-2022 Chronic Other screening for suspected conditions (not mental disorders or infectious disease) (11 sources) Raised prostate specific antigen; 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: [Decreased testosterone level ] Onset: 2 05-04-2020 Episodic Other upper respiratory infections (2 sources) Sore throat symptom 08-30-2023 Episodic Otitis media and related conditions (3 sources) Otitis media of right ear; 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: [Finding of fluid behind tympanic membrane] 08-30-2023 Episodic Pancreatic disorders (not diabetes) (4 sources) Cyst of pancreas; 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: [Cyst of pancreas] Onset: 4 Episodic Pneumonia (except that caused by tuberculosis or sexually transmitted disease) (6 sources) Legionella pneumonia; 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: [Legionnaires' disease] Onset: 3 04-25-2019 Episodic Residual codes; unclassified (5 sources) Sleep apnea 04-25-2019 Chronic Residual codes; unclassified (1 source) Sleep apnea, unspecified; 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: [SLEEP APNEA UNSPECIFIED] Onset: 3 Chronic Thyroid disorders (4 sources) Hypothyroidism, unspecified; 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: [HYPOTHYROIDISM UNSPECIFIED] Onset: 3 Chronic Unclassified (6 sources) Patient encounter status 07-14-2023 Past or Other Problems Problem Classification Problem Date Documented Da te Episodic/Chronic Unclassified (5 sources) Drug therapy finding 11-03-2022 Results Test Name Value Interpretation Reference Range Facil ity Surgical Pathologyon 024 Surgical Pathology Normal [facility] Comment on above: Result Comment: [facility] [address] [place] [address] Surgical Pathology Consultation Patient Name:MAXIMINO CLARKE:1955 (Age: 69)Gender:MTaken:4Reported:4Physician(s):Surinder El MD ( )Copy To: Rec. #:[id number]: #[id number] Final Pathologic Diagnosis Gastric biopsy: Mild chronic gastritis with intestinal metaplasia present. Negative for helicobacter organisms on routine H&E examination Negative for dysplasia or malignancy. Report Electronically Signed Out st/05/02/2024Lorena Bowles MD Interpretation performed at [facility], [address] [place], [address], License number: [id number]. Clinical History Pancreatic cyst, abdominal pain. 1. H pylori screen Gross Description Received in formalin, labeled VINCE, gastric biopsy are multiple pink-del angel soft tissue fragments aggregating 1.3 x 0.5 x 0.1 cm. The specimen is filtered and entirely submitted in one cassette. (1, ns, [id number], ) MW mxw/04/30/2024GR Specimen(s) Received Gastric biopsy Fee Codes(s): 1; 17002 Gastroenterology Office/Clin ic Noteon 04-01-2024 Gastroenterology Office/Clinic Note Gastroenterology Office/Clinic Note Chief Complaint abdominal pain, pancreatic cysts HPI Staff Patient is a 69 year old male who was referred by Emilee for abdominal pain, cholelithiasis and pancreatic cysts. PCP referred him to for gallstones. Takes Aspirin 81mg daily. US abd 01/03/24: IMPRESSION: 1. No aortic aneurysm or dissection. 2. Patent IVC. 3. Cholelithiasis without ultrasound evidence of acute cholecystitis. 4. Nonspecific complex cysts within the neck/body of the pancreas. Small cyst was seen within this area on a 11/12/2020 CT Chest study, but was only partially included. Consider CT abdomen without and with IV contrast for further characterization. CT abd 01/24/24: IMPRESSION: 1. 2 small adjacent lesions within body of pancreas suspected to represent benign pseudocyst. One of these was partially visible on the 2020 CT study and appears grossly stable. The other was below the level of imaging. Consider follow-up CT chest in 3-6 months to document stability. 2. Cholelithiasis. History of Present Illness Left sided abdominal pain. Started 6 months ago. Comes and goes. Hurts more when sitting. Review of Systems PHQ Score Initial Depression Screen Score: 0 SCORE All systems reviewed, negative; Except for above Physical Exam Vitals & Measurements HR: 86(Peripheral) RR: 18 BP: 126/80 HT: 69 in HT: 174 cm WT: 89 kg WT: 195.8 lb BMI: 29.4 General: in Nad Abdomen: Soft, NTND Procedure Colonoscopy 12/14/22 w/Dr. Nill: POSTOPERATIVE DIAGNOSIS: Prominent rectal veins, mild sigmoid diverticulosis as well as some nodularity at the ileocecal valve. Pathology: Ileocecal valve, biopsy: -Focal active colitis Assessment/Plan 1. Abdominal pain (R10.9: Unspecified abdominal pain) comes and goes, started 6 months ago Take Nexium 30 minutes before breakfast We will proceed with EGD with Trini- Discussed risk and benefits with patient- agreeable to proceeding 2. Pancreas cyst (K86.2: Cyst of pancreas) 2 small lesions noted on CT 01/2024- Discussed referral to Dr Feliz to proceed with EGD/EUS with random gastric biopsy, if negative we will alternate between EUS/MRCP Mother had pancreatic cancer at age 75- annual imaging is reasonable (EUS/MRCP) Last colonoscopy showed nonspecific active colitis on the IC valve biopsy, likely nonspecific, if any symptoms of UC in the future, repeat colonoscopy with random biopsies I, Liliana Garcia, personally scribed for Letty Ryan on 04/01/2024 10:23:45. . Documentation recorded by Liliana Garcia, accurately reflects the services I performed and decisions made by me. Letty Ryan MD Follow-up No qualifying data available Problem List/Past Medical History Ongoing Abdominal pain Benign prostatic hypertrophy with outflow obstruction BMI 31.0-31.9,adult Cholelithiases Chronic fatigue syndrome Chronic obstructive pulmonary disease Coronary artery disease Cough Elevated PSA Emphysema of lung Fatigue Fluid level behind tympanic membrane of both ears Gallstones Gross hematuria Headache Hematochezia Hyperlipidemia Hypertension Interstitial pulmonary fibrosis Legionnaire's disease Low testosterone Nocturia Pancreas cyst Prostate cancer screening Rectal bleeding Right otitis [...] refills aspirin, 81 mg, Chewed, Daily carvedilol 12.5 mg Tab, 12.5 mg= 1 tab(s), Oral, BID, 3 refills CPap supplies, See Instructions, 1 refills D3 1000 intl units (25 mcg) oral tablet, 25 mcg= 1 tab(s), Oral, Daily Nexium 40 mg Cap-EC, 40 mg= 1 cap(s), Oral, Daily Pulmicort Flexhaler 90 mcg/inh inhalation powder, 1 inh, Inhalation, BID, 11 refills rosuvastatin 20 mg Tab, 20 mg= 1 tab(s), Oral, Daily Allergies No Known Medication Allergies Social History Alcohol - Denies Alcohol Use, 04/25/2019 Substance Abuse - Denies Substance Abuse, 11/22/2022 Tobacco Never (less than 100 in lifetime) Tobacco Use:. Never Smokeless Tobacco Use:. Household tobacco concerns: No., 04/01/2024 Family History Anxiety: Mother. Heart disease: Sister. Hypertension: Mother. Pancreatic cancer: Mother. Immunizations Vaccine Date Status influenza virus vaccine, inactivated 06/09/2022 Recorded SARS-CoV-2 (COVID-19) mRNA BNT-162b2 vax 09/21/2021 Recorded SARS-CoV-2 (COVID-19) mRNA BNT-162b2 vax 01/05/2021 R (more content not included)... [facility] Comment on above: Result Comment: Elec tronically Signed By: Letty Ryan MD\.br\Date and Time Signed: 04/01/24 10:29 EDT\.br\Electronically Co-Signed By: Liliana Garcia MA\.br\Date and Time Co-Signed: 04/01/24 10:24 EDT Physician Referralon 024 Physician Referral [id number]# 1.00TIFF [facility] Physician Referralon 024 Physician Referral [id number]# 1.00TIFF [facility] RAD - CT Reporton 01-26-2024 RAD - CT Report [id number]#1 .00TIFF [facility] Physician Orderon 01-03-2024 Physician Order [id number]#1 .00TIFF [facility] Ambulatory Visit Summaryon 0 01-02-2024 Ambulatory Visit Summary MAXIMINO CLARKE :1955 Visit Date:01/02/2024 Ambulatory Visit Instructions Your Diagnosis BMI 30.0-30.9,adult Your Care Team Attending Physician - Mary [...] Partial colectomy. Discharge Vitals Heart Rate (Peripheral) 56 Blood Pressure 152/90 Height 174 cm Height 69 in Weight 93.4 kg Weight 205.48 lb BMI 30.85 What to do next Scheduled Follow-Up Appointments Monday 8:45 AM EDT With: SANGEETA DH[facility]IWAL, Jim More Where: [facility] Family Medicine Office/Clini c Noteon 01-02-2024 Family Medicine Office/Clinic Note Chief Complaint pain HPI Staff Maximino is a 68 year old male presenting for acute visit SOFIA 12/28/23 seen for sore throat/fluid both ears given Kenalog injection, started on Augmentin. Hypertension- Carvedilol increased Pain characteristics: Pain location: left abdomen radiating up Intensity:5/10 Onset: 3-4 months Medication used: nothing Pt having abdominal pain History of Present Illness pt presents today for left sided abdominal pain that radiates up towards his heart Physical Exam Vitals & Measurements HR: 56(Peripheral) BP: 152/90 SpO2: 96% HT: 69 in HT: 174 cm WT: 93.4 kg WT: 205.48 lb BMI: 30.85 General: alert, no acute distress ENMT: oral mucosa moist, no pharyngeal erythema or exudate Cardiovascular: regular rate and rhythm, normal peripheral perfusion Respiratory: Lungs CTA, respirations non labored Extremities: no deformity, no trauma Neurological: oriented x 4, LOC appropriate for age, CN II-XII intact, motor strength equal & normal bilaterally, speech normal left sided abdominal pain that radiates up toward his heart. Assessment/Plan 1. Abdominal pain (R10.9: Unspecified abdominal pain) pt c/o abdominal pain. has been going on for a couple of months. will order abdominal u/s. may consider referral to GI. pt is going on vacation . will follow up after getting u/s BMI 30.0-30.9,adult (Z68.30: Body mass index [BMI] 30.0-30.9, adult) BMI education complete Ordered: Body Mass Index (BMI) documented 3008F Current tobacco non-user 1036F Medication list documented in medical record 1159F Patient screen for fall risk: no falls in last year or 1 fall with no injury in last year 1101F Follow-up No qualifying data available Problem List/Past Medical History Ongoing Abdominal pain Benign prostatic hypertrophy with outflow obstruction BMI [...] Smokeless Tobacco Use:. Household tobacco concerns: No., 01/02/2024 Family History Anxiety: Mother. Heart disease: Sister. Hypertension: Mother. Pancreatic cancer: Mother. Immunizations Vaccine Date Status influenza virus vaccine, inactivated 06/09/2022 Recorded SARS-CoV-2 (COVID-19) mRNA BNT-162b2 vax 09/21/2021 Recorded SARS-CoV-2 (COVID-19) mRNA BNT-162b2 vax 01/05/2021 Recorded SARS-CoV-2 (COVID-19) mRNA BNT-162b2 vax 12/14/2020 Recorded Normal [facility] Comment on above: Result Comment: Elec tronically Signed By: Mary Ellen Dela Cruz\.br\Date and Time Signed: 01/02/24 11:42 EDT Physician Orderon 01-02-2024 Physician Order [id number]#1 .00TIFF [facility] RAD - CT Reporton 01-02-2024 RAD - CT Report [id number]#1 .00TIFF [facility] Ambulatory Visit Summaryon 0 12-28-2023 Ambulatory Visit [...] DHALIWAL, Jim More Where: [facility] [place]enton 12-28-2023 Consent [id number]#1 .00TIFF [facility] Family Medicine Office/Clini c Noteon 12-28-2023 [...] day(s), # 14 tab(s), Refills(s) 0, Pharmacy: [facility] #[id number], 174, cm, 12/28/23 8:31:00 EDT, Height/Length Dosing, 93.3, kg, 12/28/23 8:31:00 EDT, Weight Dosing 4. Non-smoker (Z78.9: Other specified health status) continue not smoking Ordered: amoxicillin-clavulana te, = 1 tab(s), Oral, q12hr, X 7 day(s), # 14 tab(s), Refills(s) 0, Pharmacy: [facility] #[id number], 174, cm, 12/28/23 8:31:00 EDT, Height/Length Dosing, 93.3, kg, 12/28/23 8:31:00 EDT, Weight Dosing 5. Hypertension (I10: Essential (primary) hypertension) BP continues to run high. 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 he does not have any follow up appointments scheduled with cardiology and they are leaving on a cruise next week. RTC 4 weeks for BP check. Orders: carvedilol, 12.5 mg = 1 tab(s), Oral, BID, # 60 tab(s), Refills(s) 0, Pharmacy: [facility] #[id number], 174, cm, 12/28/23 8:31:00 EDT, Height/Length Dosing, [...] Recorded SARS (more content not included)... Normal [facility] Comment on above: Result Comment: Elec tronically Signed By: Mary Ellen Dela Cruz\.br\Date and Time Signed: 12/28/23 08:48 EDT Office Visiton 12-08-2023 Follow-up visit [id number] Maximino Clarke 1955 M Date Provider Department Center 12/08/2023 [id number] VASQUEZ JUSTO [facility] Family History Problem Relation Age of Onset Hypertension Mother Cancer Mother Family Status - Relation Status Age at Mother Level of Service:85659 SC OFFICE/OUTPATIENT ESTABLISHED MOD MDM 30 MIN Reason for Visit and Comments: Follow-up [988508] [facility] Ambulatory Visit Summaryon 0 12-04-2023 Ambulatory Visit Summary MAXIMINO CLARKE:1955 Visit Date:12/04/2023 Ambulatory Visit Instructions Your Diagnosis [...] 8:45 AM EDT With: SANGEETA [facility]ALI[facility]AL, Jim Mroe Where: [facility] Patient Educationon 12-04-19 Patient Education Urology Benign [...] Follow these instructions at home: ? Take [id number] and prescription medicines only as told by [...] the medicine (more content not included)... Normal [facility] Urology Office/Clinic Noteon 12-04-2023 Urology Office/Clinic Note [...] done 07/14/23 was 1.4 Negative prostate biopsy 2019 1 year f/u with PSA Follow-up With When Contact Information SANGEETA [facility]ALIWAL, FABIOLA Melissa In 1 year [facility] [address], [place] [address]- [phone] Additional Instructions: with PSA Patient Education Benign Prostatic Hyperplasia I, Iris Robledo, personally scribed for Dr. Bah on 12/04/2023 09:44:24. . Documentation recorded by the scribearleen, accurately reflects the services(s) I performed and [...] 90 mcg/inh i (more content not included)... [facility] Comment on above: Result Comment: Elec tronically Signed By: Jim BAH MD\.br\Date and Time Signed: 12/04/23 09:47 EST\.br\Electronically Co-Signed By: Iris Robledo\.br\Date and Time Co-Signed: 12/04/23 09:45 EST Ambulatory [...] Follow-Up Appointments Monday 9:00 AM EST With: Jim BAH MD Where: [facility] Family Medicine Office/Clini c Noteon 10-13-2023 Family Medicine Office/Clinic Note HPI Staff Maximino is a 68 year old male presenting for 3 month follow up SOFIA 10/13/23 pt establish care and had been without blood pressure medication for 2 months b/p: 162/112 Pt seen [facility] last week in [facility]. changed blood pressure medication. Patient is here [...] tab(s), Oral, Daily, 30 tab(s), Refill(s) 5, [facility] #[id number], 172.7, cm, 07/14/23 13:11:00 EDT, Height/Length Dosing, 92, kg, 07/14/23 13:11:00 EDT, Weight Dosing pravastatin, 20 mg, Oral, Daily, # 90 tab(s), Refills(s) 3, Pharmacy: [facility] #[id number], 172.7, cm, 07/14/23 13:11:00 EDT, Height/Length Dosing, [...] (COVID-19) mRNA BNT-162b2 vax 12/14/2020 Recorded Normal [facility] Comment on above: Result Comment: Elec tronically Signed By: Mary Ellen Dela Cruz\.br\Date and Time Signed: 10/13/23 13:23 EST Office Visiton 10-06-2023 Follow-up visit [id number] Maximino Clarke 1955 M Date Provider Department Center 10/06/2023 [id number]-KAT VASQUEZ [facility] Family History Problem Relation Age of Onset Hypertension Mother Cancer Mother Family Status - Relation Status Age at Mother Level of Service:16070 SC OFFICE/OUTPATIENT NEW MODERATE MDM 45 MINUTES Normal [facility] Retail - Clinical Noteon Retail - Clinical Note [id number] .00TIFF [facility] Consultation Noteon 09-08-20 23 Consultation Note [id number] .00TIFF [facility] Ambulatory Visit Summaryon 1 10-30-2022 Ambulatory [...] EST With: Mary Ellen Dela Cruz Where: [facility] Normal [address] [place] [address]- \.br\ Medications\.br\ What How Much When Why Instructions\.br\ New azithromycin (azithromycin 250 mg Tab) 1 Packets By Mouth As Directed Right otitis media Cough Sore throat Headache BMI 30.0-30.9,adult Non-smoker Duration: 5 Days as directed on package labeling Pickup at [facility] #[id number]\.br\ New methylPREDNISolone (Medrol 4 mg Tab) 1 Packets By Mouth As Directed Right otitis media Cough Sore throat Headache BMI 30.0-30.9,adult Non-smoker Duration: 6 Days as directed on package labeling Pickup at [facility] #50103\.br\ Unchanged albuterol (albuterol 0.083% Inh Anne 3 [...] Milligram By Mouth Every day\.br\ Pharmacy Information\.br\ [facility] #[id number]: [address], [place] [id number] [phone]\.br\ Allergies\.br\ No Known Allergies\.br\ No Known Medication [...] for choosing us for your care.\.br\ \.br\ [facility] Ambulatory Visit Summary MAXIMINO CLARKE :1955 Visit [...] EST With: Mary Ellen Dela Cruz Where: [facility] Normal [address] [place] [address]- \.br\ Medications\.br\ What How Much When Why [...] choosing us for your care.\.br\ \.br\ [facility] Family Medicine Office/Clini c Noteon 08-30-2023 [...] day(s), # 6 tab(s), Refills(s) 0, Pharmacy: [facility] #75294, 172.7, cm, 08/30/23 16:58:00 EST, Height/Length Dosing, 92.2, kg, 08/30/23 16:58:00 EST, Weight Dosing methylPREDNISolone, = 1 packet(s), Oral, As Directed, as directed on package labeling, X 6 day(s), # 21 tab(s), Refills(s) 0, Pharmacy: [facility] #06598, 172.7, cm, 08/30/23 16:58:00 EST, Height/Length Dosing, 92.2, kg, 08/30/23 16:58:00 EST, Weight Dosing 2. Cough (R05.9: Cough, unspecified) lung sound are tight pt coughing. pt has follow up with Dr. Barlow had CT of chest done recently Ordered: azithromycin, = 1 packet(s), Oral, As Directed, as directed on package labeling, X 5 day(s), # 6 tab(s), Refills(s) 0, Pharmacy: [facility] #69405, 172.7, cm, 08/30/23 16:58:00 EST, Height/Length Dosing, 92.2, kg, 08/30/23 16:58:00 EST, Weight Dosing methylPREDNISolone, = 1 packet(s), Oral, As Directed, as directed on package labeling, X 6 day(s), # 21 tab(s), Refills(s) 0, [facility] #[id number], 172.7, cm, 08/30/23 16:58:00 EST, Height/Length Dosing, 92.2, kg, 08/30/23 16:58:00 EST, Weight Dosing 3. Sore throat (J02.9: Acute pharyngitis, unspecified) thrat is red no exudate Ordered: azithromycin, = 1 packet(s), Oral, As Directed, as directed on package labeling, X 5 day(s), # 6 tab(s), Refills(s) 0, Pharmacy: [facility] #[id number], 172.7, cm, 08/30/23 16:58:00 EST, Height/Length Dosing, 92.2, kg, 08/30/23 16:58:00 EST, Weight Dosing methylPREDNISolone, = 1 packet(s), Oral, As Directed, as directed on package labeling, X 6 day(s), # 21 tab(s), Refills(s) 0, [id number], 172.7, cm, 08/30/23 16:58:00 EST, Height/Length Dosing, 92.2, kg, 08/30/23 16:58:00 EST, Weight Dosing 4. Headache (R51.9: Headache, unspecified) sinus tenderness Ordered: azithromycin, = 1 packet(s), Oral, As Directed, as directed on package labeling, X 5 day(s), # 6 tab(s), Refills(s) 0, Pharmacy: [facility] #98169, 172.7, cm, 08/30/23 16:58:00 EST, Height/Length Dosing, 92.2, kg, 08/30/23 16:58:00 EST, Weight Dosing methylPREDNISolone, = 1 packet(s), Oral, As Directed, as directed on package labeling, X 6 day(s), # 21 tab(s), Refills(s) 0, Pharmacy: [facility] #12336, 172.7, cm, 08/30/23 16:58:00 EST, Height/Length Dosing, 92.2, kg, 08/30/23 16:58:00 EST, Weight Dosing 5. BMI 30.0-30.9,adult (Z68.30: Body mass index [BMI] 30.0-30.9, adult) bmi education complete Ordered: azithromycin, = 1 packet(s), Oral, As Directed, as directed on package labeling, X 5 day(s), # 6 tab(s), Refills(s) 0, Pharmacy: [facility] #88599, 172.7, cm, 08/30/23 16:58:00 EST, Height/Length Dosing, 92.2, kg, 08/30/23 16:58:00 EST, Weight Dosing methylPREDNISolone, = 1 packet(s), Oral, As Directed, as directed on package labeling, X 6 day(s), # 21 tab(s), Refills(s) 0, Pharmacy: [facility] #99123, 172.7, cm, 08/30/23 16:58:00 EST, Height/Length Dosing, 92.2, kg, 08/30/23 16:58:00 EST, Weight Dosing 6. Non-smoker (Z78.9: Other specified health status) continue not smoking Ordered (more content not included)... [facility] Comment on above: Result Comment: Elec tronically Signed By: Mary Ellen Dela Cruz\.dipti\Date and Time Signed: 08/30/23 17:11 EST Consultation Noteon 08-03-20 23 Consultation Note [id number] .00TIFF [facility] Physician Referralon 023 Physician Referral [id number]# [id number] [facility] Ambulatory Visit Summaryon 1 Ambulatory Visit [...] EST With: Mary Ellen Dela Cruz Where: [facility] [place] Normal [facility] Auto Diffon 07-14-2023 Basophils/100 WBC (Bld) 0.7 % Normal 0.0-2.0 [facility] Comment on above: Order Comment: Order Added by Discern Expert. Performed By: #### 2 713218, 3258923, 6594444, 5009605, 30285230, 0278387, 10786246 ####[facility] [address] [place] [address] Basophils/Leukocyte s Auto (Bld) [Pure # fraction] 0.0 E9/L Normal 0.0-0.2 [facility] Comment on above: Order Comment: Order Added by Discern Expert. Performed By: #### 2 182612, 7988759, 7326844, 9194955, 09506474, 5478502, 69781115 ####[address] [place] [address] Eosinophils/100 WBC (Bld) 1.3 % Normal 0.0-8.0 [facility] Comment on above: Order Comment: Order Added by Discern Expert. Performed By: #### 2 316998, 5020637, 5721076, 4151146, 10883962, 7867586, 53015446 ####[address] [address] Eosinophils/Leukocy funmilayo Auto (Bld) [Pure # fraction] 0.1 E9/L Normal 0.0-0.5 [facility] Comment on above: Order Comment: Order Added by Discern Expert. Performed By: #### 2 109366, 7458181, 1264118, 2669991, 67824277, 0178668, 07923380 ####[address] [address] Lymphocytes/100 WBC (Bld) 20.2 % Normal 14.0-50.0 [facility] Comment on above: Order Comment: Order Added by Discern Expert. Performed By: #### 2 770554, 0286107, 4326892, 4380399, 96641510, 9372332, 01375554 ####[address] [address] Lymphocytes/Leukocy funmilayo Auto (Bld) [Pure # fraction] 1.4 E9/L Normal 1.0-4.0 [facility] Comment on above: Order Comment: Order Added by Discern Expert. Performed By: #### 2 666534, 6483255, 0174717, 2305615, 95174883, 5309626, 98411236 ####[address] [address] Monocytes/100 WBC (Bld) 12.3 % Normal 4.0-14.0 [facility] Comment on above: Order Comment: Order Added by Discern Expert. Performed By: #### 2 599689, 5592987, 4545882, 0534101, 44241919, 8868689, 13182320 ####[address] [place] [address] Monocytes/Leukocyte s Auto (Bld) [Pure # fraction] 0.8 E9/L Normal 0.2-1.0 [facility] Comment on above: Order Comment: Order Added by Discern Expert. Performed By: #### 2 683684, 5894698, 9214731, 0396222, 22395552, 5382573, 83365387 ####[address] [place] [address] Neutrophils/100 WBC (Bld) 65.5 % Normal 36.0-75.0 [facility] Comment on above: Order Comment: Order Added by Discern Expert. Performed By: #### 2 441531, 7146542, 1393852, 9560968, 28725272, 8533430, 56948901 ####[address] [address] Neutrophils/Leukocy funmilayo Auto (Bld) [Pure # fraction] 4.5 E9/L Normal 2.0-7.5 [facility] Comment on above: Order Comment: Order Added by Discern Expert. Performed By: #### 2 541767, 5622832, 3700810, 4815313, 08059471, 3763767, 53489302 ####[address] [place] [address] CBC w/ Auto Diffon 3 Erythrocyte distribution width (RBC) [Ratio] 13.9 % Normal 10.9-14.2 [facility] Comment on above: Performed By: #### 2 399983, 7192055, 3626067, 2758695, 05941332, 5601188, 07603871 ####[address] [place] [address] Hematocrit (Bld) [Volume fraction] 47.7 % Normal 37.7-49.0 [facility] Comment on above: Performed By: #### 2 364775, 0976703, 4275951, 1707089, 70343610, 7120543, 82554888 ####[facility] [address] [place] [address] Hemoglobin (Bld) [Mass/Vol] 15.8 g/dL Normal 13.5-17.5 [facility] Comment on above: Performed By: #### 2 620772, 9961589, 2255663, 9271616, 97484100, 0295970, 48033784 ####[facility] [address] [place] [address] MCH (RBC) [Entitic mass] 30.2 pg Normal 27.0-34.0 [facility] Comment on above: Performed By: #### 2 097932, 3920937, 5771493, 5453674, 07064361, 8260009, 05655602 ####[address] [address] MCHC (RBC) [Mass/Vol] 33.2 g/dL Normal 31.4-36.0 [facility] Comment on above: Performed By: #### 2 590504, 7619489, 1707214, 2587727, 79743670, 7083813, 20013953 ####[address] [address] MCV (RBC) [Entitic vol] 90.9 fL Normal 80.0-100.0 [facility] Comment on above: Performed By: #### 2 392109, 4671128, 8123541, 5610851, 57035632, 8689628, 87214536 ####[address] [place] [address] Platelet mean volume (Bld) [Entitic vol] 11.2 fL High 6.4-10.8 [facility] Comment on above: Performed By: #### 2 757529, 7109559, 6557333, 6965059, 55639899, 6088271, 24927493 ####[address] [address] Platelets (Bld) [#/Vol] 105.0 E9/L Low 150.0-500.0 [facility] Comment on above: Performed By: #### 2 845803, 1513924, 0919522, 9653998, 30125758, 2599343, 47246487 ####[facility] [address] [place] [address] RBC (Bld) [#/Vol] 5.2 E12/L Normal 4.3-5.9 [facility] Comment on above: Performed By: #### 2 035250, 2455178, 1399304, 1665659, 26595960, 3070238, 53941718 ####[facility] [address] [place] [address] WBC corrected for nucl RBC Auto (Bld) [#/Vol] 6.8 E9/L Normal 4.0-11.0 [facility] Comment on above: Performed By: #### 2 739027, 1507540, 3708124, 9324285, 82172627, 3648872, 97872974 ####[facility] [address] [place] [address] CHEMISTRYOrdered By: SYSTEM SYSTEM on 07-14-2023 Albumin [...] 10.2 mg/dL Normal 8.9 - 11.1 mg/dL FT Remisol Chloride [Moles/Vol] 113 mmol/L High 101 [...] 28 mmol/L Normal 21 - 31 mmol/L [facility] Creatinine [Mass/Vol] 1.5 mg/dL High 0.5 - 1.3 mg/dL FT [facility] GFR/1.73 sq M.predicted among non-blacks MDRD (S/P/Bld) [Vol rate/Area] 51 mL/min/1.73 m2 Low >=59mL/min/1.73 m2 [facility] S Comment on above: Interpretive Data: [...] for this result was chemiluminescence using [employer] [place]'s Access Hybrite[employer] PSA reagent. Protein [Mass/Vol] 7.8 [...] Urea nitrogen/Creatinine [Mass ratio] 9 mg/mg Low - [facility]isol CMPon 07-14-2023 Albumin [Mass/Vol] 4.2 g/dL Normal 3.3-5.0 [facility] Comment on above: Performed By: #### 2 897679, 1742775, 0964921, 1442838, 61074045, 5429866, 66489982 ####[facility] [address] [place] [address] Albumin/Globulin (S) [Mass conc ratio] 1.2 Normal 1.1-2.2 [facility] Comment on above: Performed By: #### 2 459528, 2724017, 7981509, 1756478, 47195082, 2295645, 06361023 ####[facility] [address] [place] [address] ALP [Catalytic activity/Vol] 75 Int._Unit/L Normal 21-98 [facility] Comment on above: Performed By: #### 2 100134, 9782829, 2131954, 1684295, 93424453, 6440340, 63534549 ####[facility] [address] [place] [address] ALT No additional P-5'-P [Catalytic activity/Vol] 28 Int._Unit/L Normal 6-46 [facility] Comment on above: Performed By: #### 2 432948, 7548517, 2196405, 0999297, 44600356, 5600366, 31049367 ####[facility] [address] [place] [address] Anion gap [Moles/Vol] 11 mmol/L Normal 6-16 [facility] Comment on above: Performed By: #### 2 249840, 6286540, 7972393, 6253278, 35634570, 5903137, 83577672 ####[facility] [address] [place] [address] AST [Catalytic activity/Vol] 30 Int._Unit/L Normal 5-43 [facility] Comment on above: Performed By: #### 2 804273, 5549267, 9408144, 0785844, 03070599, 4962165, 52903639 ####[facility] [address] [place] [address] Bilirubin [Mass/Vol] 0.4 mg/dL Normal 0.0-1.1 [facility] Comment on above: Performed By: #### 2 846788, 9073822, 5347386, 5845184, 29587878, 3880982, 94082489 ####[facility] [address] [place] [address] Calcium [Mass/Vol] 10.2 mg/dL Normal 8.9-11.1 [facility] Comment on above: Performed By: #### 2 762443, 8795290, 0654279, 9824969, 47885744, 9082583, 09632580 ####[facility] [address] [place] [address] Chloride [Moles/Vol] 113 mmol/L High 101-111 [facility] Comment on above: Performed By: #### 2 318213, 5283010, 1093813, 6662802, 95205153, 1776551, 49886914 ####[facility] [address] [place] [address] CO2 [Moles/Vol] 28 mmol/L Normal 21-31 [facility] Comment on above: Performed By: #### 2 676526, 8732764, 8499245, 5584791, 01290286, 9673273, 64185513 ####[facility] [address] [place] [address] Creatinine [Mass/Vol] 1.5 mg/dL High 0.5-1.3 [facility] Comment on above: Performed By: #### 2 292115, 0713487, 1570155, 2477105, 91746904, 8535773, 83855542 ####[facility] [address] [place] [address] Globulin (S) [Mass/Vol] 3.6 g/dL Normal 1.4-4.0 [facility] Comment on above: Performed By: #### 2 546107, 5575786, 4477301, 5460702, 47629601, 1334610, 75002106 ####[facility] [address] [place] [address] Glucose [Mass/Vol] 96 mg/dL Normal 55-199 [facility] Comment on above: Result Comment: If t his glucose result represents a fasting glucose, interpretation should refer to the following reference range: 55-99 mg/dL Performed By: #### 2 856243, 0979193, 9639306, 9591229, 31062047, 5915779, 64825396 ####[facility] [address] [place] [address] Potassium [Moles/Vol] 3.6 mmol/L Normal 3.5-5.3 [facility] Comment on above: Performed By: #### 2 739783, 0986027, 8085014, 4966849, 62556901, 5442551, 57693500 ####[facility] [address] [place] [address] Protein [Mass/Vol] 7.8 g/dL Normal 6.0-7.8 [facility] Comment on above: Performed By: #### 2 296191, 5477107, 8186710, 9208257, 89706874, 6695736, 66465611 ####[facility] [address] [place] [address] Sodium [Moles/Vol] 148 mmol/L High 135-145 [facility] Comment on above: Performed By: #### 2 434577, 1625156, 3256817, 9387583, 44611930, 0292227, 12855130 ####[facility] [address] [place] [address] Urea nitrogen [Mass/Vol] 14 mg/dL Normal 5-21 [facility] Comment on above: Performed By: #### 2 180224, 3516531, 2689556, 0700318, 17505431, 5132472, 64559943 ####[facility] [address] [place] [address] Urea nitrogen/Creatinine [Mass ratio] 9 No Units Low 10-20 [facility] Comment on above: Performed By: #### 2 861412, 1392621, 0137265, 5821943, 61272606, 9124121, 30316108 ####[facility] [address] [place] [address] Family Medicine Office/Clini c Noteon 07-14-2023 Family Medicine Office/Clinic Note HPI Staff Warner is a 68 year old male presenting to establish care Establish Care: History: Any previous diagnosis: BPH, HLD, HTN, Sleep apnea, Emphysema, COPD, interstitial pulmonary fibrosis, legionnaire's disease History of seeing any specialist: [facility] in [place] When was your last doctors visit: Last provider: Dr Blandon Any recent labs:10/11/22 TSH 0.231, wellness labs 01/2022 Health Maintenance UTD: Colonoscopy: 12/28/22 due in 10 years PSA: Acute: Current issues/complaints: SOB: getting more short of breath quicker, 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 Chronic obstructive pulmonary disease (J44.9: Chronic obstructive pulmonary disease, unspecified) pt has had COPD for 22 years. has not been to survey research manager in over 10 years. was seeing someone in [place]. Will send referral to Dr. Barlow. will order steroid inhaler today Ordered: budesonide, 1 inh, Inhalation, BID, 1 EA, Refill(s) 11, [facility] #36753, 172.7, cm, 07/14/23 13:11:00 EDT, Height/Length Dosing, 92, kg, 07/14/23 13:11:00 EDT, Weight Dosing CBC w/ Auto Diff Comprehensive Metabolic Panel [facility] [place] Ambulatory Referral Lab Specimen Collect 57815 Lipid Panel PSA Screen, Total Thyroid Stimulating Hormone 3. Fatigue (R53.83: Other fatigue) will order labs. BP is elevated Ordered: budesonide, 1 inh, Inhalation, BID, 1 EA, Refill(s) 11, [facility] #[id number], 172.7, cm, 07/14/23 13:11:00 EDT, Height/Length Dosing, 92, kg, 07/14/23 13:11:00 EDT, Weight Dosing CBC w/ Auto Diff Comprehensive Metabolic Panel Lab Specimen Collect 06259 Lipid Panel PSA Screen, Total Thyroid Stimulating Hormone 4. Hypertension (I10: Essential (primary) hypertension) pt has been out of BP meds for 2 months. just started taking it again 2 days ago Ordered: budesonide, 1 inh, Inhalation, BID, 1 EA, Refill(s) 11, [facility] #22843, 172.7, cm, 07/14/23 13:11:00 EDT, Height/Length Dosing, 92, kg, 07/14/23 13:11:00 EDT, Weight Dosing CBC w/ Auto Diff Comprehensive Metabolic Panel Lab Specimen Collect 33435 Lipid Panel PSA Screen, Total Thyroid Stimulating Hormone 5. Prostate cancer screening (Z12.5: Encounter for screening for malignant neoplasm of prostate) psa ordered today Ordered: budesonide, 1 inh, Inhalation, BID, 1 EA, Refill(s) 11, [facility] #78479, 172.7, cm, 07/14/23 13:11:00 EDT, Height/Length Dosing, 92, kg, 07/14/23 13:11:00 EDT, Weight Dosing CBC w/ Auto Diff Comprehensive Metabolic Panel Lab Specimen Collect 40510 Lipid Panel PSA Screen, Total Thyroid Stimulating Hormone 6. BMI 31.0-31.9,adult (Z68.31: Body mass index [BMI] 31.0-31.9, adult) BMI education complete Ordered: budesonide, 1 inh, Inhalation, BID, 1 EA, Refill(s) 11, [facility] #[id number], 172.7, cm, 07/14/23 13:11:00 EDT, Height/Length Dosing, 92, kg, 07/14/23 13:11:00 EDT, Weight Dosing CBC w/ Auto Diff Comprehensive Metabolic Panel Lipid Panel PSA Screen, Total Thyroid Stimulating Hormone 7. Non-smoker (Z78.9: Other specified health status) continue not smoking Ordered: budesonide, 1 inh, Inhalation, BID, 1 EA, Refill(s) 11 [facility] #49696, 172.7, cm, 07/14/23 13:11:00 EDT, Height/Length Dosing, 92, kg, 07/14/23 13:11:00 EDT, Weight Dosing CBC w/ Auto Diff Comprehensive (more content not included)... Normal [facility] Comment on above: Result Comment: Elec tronically Signed By: Emilee CARREON, Mary Ellen Daniel\.br\Date and Time Signed: 07/14/23 14:54 EDT HEMATOLOGYOrdered [...] 13.9 % Normal 10.9 - 14.2 % FT HemeAutoSS Hematocrit (Bld) [Volume fraction] 47.7 % Normal 37.7 - 49.0 % FT [facility]eAutoSS Hemoglobin (Bld) [Mass/Vol] 15.8 g/dL Normal 13.5 - 17.5 gm/dL [facility] MCH (RBC) [Entitic mass] 30.2 pg Normal 27.0 - 34.0 pg FT [facility]SS MCHC (RBC) [Mass/Vol] 33.2 g/dL Normal 31.4 - 36.0 gm/dL FT [facility] MCV (RBC) [Entitic vol] 90.9 fL Normal 80.0 - 100.0 fL FT [facility]SS Platelet mean volume (Bld) [Entitic vol] 11.2 fL High 6.4 - 10.8 fL [facility] Platelets (Bld) [#/Vol] 105.0 E9/L Low 150.0 - 500.0 E9/L [facility]eAutoSS RBC (Bld) [#/Vol] 5.2 E12/L Normal 4.3 - 5.9 E12/L [facility] HemeAutoSS WBC corrected for nucl RBC Auto (Bld) [#/Vol] 6.8 E9/L Normal 4.0 - 11.0 E9/L [facility] Lipid Panelon 07-14-2023 Cholesterol [Mass/Vol] 191 mg/dL Normal 120-200 [facility] Comment on above: Performed By: #### 2 750703, 1015931, 4559094, 2241729, 71435262, 0179144, 06705253 ####[facility] [address] [place] [address] Cholesterol in HDL [Mass/Vol] 29 mg/dL Invalid Interpretation Code [facility] Comment on above: Result Comment: HDL > or equal to 60 mg/dL: Low cardiovascular risk HDL < 40 mg/dL : High cardiovascular risk Performed By: #### 2 455453, 2887594, 5019696, 4030644, 95212242, 1389974, 02004391 ####[facility] [address] [place] [address] Cholesterol in LDL [Mass/Vol] 106 mg/dL Normal <=129 [facility] Comment on above: Performed By: #### 2 314266, 4147516, 1381283, 8793057, 04559838, 7598075, 73685750 ####[facility] [address] [place] [address] Cholesterol in VLDL [Mass/Vol] 46 mg/dL High 7-40 [facility] Comment on above: Performed By: #### 2 284024, 8892444, 7199851, 1486959, 43371062, 4100461, 78445095 ####[facility] [address] [place] [address] Triglyceride [Mass/Vol] 230 mg/dL High <=149 [facility] Comment on above: Performed By: #### 2 403560, 3998817, 2610294, 0910553, 87512677, 3010347, 13520501 ####[facility] [address] [place] [address] PSA Screen, Totalon 07-14-20 Prostate specific Ag [Mass/Vol] 1.4 ng/mL Normal 0.1-3.5 [facility] Comment on above: Result Comment: The concentration of PSA determined by different manufacturers can vary due to differences in assay methods and reagent specificity. Values obtained from different assay methods cannot be used interchangeably. The methodology used for this result was chemiluminescence using [employer]'s Access Hybritech PSA reagent. Performed By: #### 2 261408, 5880564, 9194003, 3146711, 06830322, 3789636, 74849938 ####[facility] [address] [place] [address] TSHon 07-14-2023 TSH Qn 0.60 m[IU]/L Normal 0.34-5.60 [facility] Comment on above: Performed By: #### 2 979001, 7885603, 4236136, [id number], [id number], [id number], [id number] ####[facility] [address] [place] [address] eGFRon 07-14-2023 GFR/1.73 sq M.predicted among non-blacks MDRD (S/P/Bld) [Vol rate/Area] 51 mL/min/1.73 m2 Low >=59 [facility] Comment on above: Order Comment: Order added by Discern Expert. Result Comment: Professor Of Historical Theology elida kidney disease could be indicated at eGFR's of less than 60 mL/min/1.73m2. Kidney failure is indicated at less than 15 mL/min/1.73m2. Performed By: #### 2 [id number], [id number], [id number], [id number], [id number], [id number] ####[facility] [address] [place] [address] CBC AUTO DIFFon 10-11-2022 BASO # 0.0 103/ul Normal 0.0-0.1 [facility] Comment on above: Performed By: #### C BC #### [facility] [address] [place] [address] Dr. Anup Paez Basophils/100 WBC (Bld) 0.4 % Normal 0.2-2.0 [facility] Comment on above: Performed By: #### C BC #### [facility] [address] [place] [address] Dr. Anup Paez EO # 0.0 103/ul Normal 0.0-0.7 [facility] Comment on above: Performed By: #### C BC #### [facility] [address] [place] [address] Dr. Anup Paez Eosinophils/100 WBC (Bld) 0.1 % Critically low 0.9-7.0 [facility] Comment on above: Performed By: #### C BC #### [facility] [address] [place] [address] Dr. Anup Paez Erythrocyte distribution width (RBC) [Ratio] 13.2 % Normal 11.0-15.0 [facility] Comment on above: Performed By: #### C BC #### [facility] [address] [place] [address] Dr. Anup Paez Hematocrit (Bld) [Volume fraction] 43.2 % Normal 42.0-54.0 [facility] Comment on above: Performed By: #### C BC #### [facility] [address] [place] [address] Dr. Anup Paez Hemoglobin (Bld) [Mass/Vol] 14.7 g/dL Normal 14.0-18.0 [facility] Comment on above: Performed By: #### C BC #### [facility] [address] [place] [address] Dr. Anup Paez IG # 0.03 10e3/ul Normal 0.00-0.03 [facility] Comment on above: Performed By: #### C BC #### [facility] [address] [place] [address] Dr. Anup Paez IG % 0.4 % Normal 0.0-0.5 [facility] Comment on above: Performed By: #### C BC #### [facility] [address] [place] [address] Dr. Anup Paez LYMPH # 1.2 103/ul Normal 1.2-3.8 [facility] Comment on above: Performed By: #### C BC #### [facility] [address] [place] [address] Dr. Anup Paez Lymphocytes/100 WBC (Bld) 14.8 % Critically low 20.5-60.0 [facility] Comment on above: Performed By: #### C BC #### [facility] [address] [place] [address] Dr. Anup Paez MANUAL DIFF REQ NO Normal [facility] Comment on above: Performed By: #### C BC #### [facility] [address] [place] [address] Dr. Anup Paez MCH (RBC) [Entitic mass] 30.3 pg Normal 25.9-34.0 [facility] Comment on above: Performed By: #### C BC #### [facility] [address] [place] [address] Dr. Anup Paez MCHC (RBC) [Mass/Vol] 34.0 g/dL Normal 29.9-35.2 [facility] Comment on above: Performed By: #### C BC #### [facility] [address] [address] [address] Anup Paez MCV (RBC) [Entitic vol] 89.1 fL Normal 80.0-94.0 [facility] Comment on above: Performed By: #### C BC #### [facility] [address] [address] [address] Anup Paez MONO # 0.5 103/ul Normal 0.3-0.8 [facility] Comment on above: Performed By: #### C BC #### [facility] [address] [place] [address] Dr. Anup Paez Monocytes/100 WBC (Bld) 5.5 % Normal 1.7-12.0 [facility] Comment on above: Performed By: #### C BC #### [facility] [address] [place] [address] Dr. Anup Paez NEUT # 6.6 103/ul Critically high 1.4-6.5 [facility] Comment on above: Performed By: #### C BC #### [facility] [address] [place] [address] Dr. Anup Paez Neutrophils/100 WBC (Bld) 78.8 % Critically high 43.0-75.0 [facility] Comment on above: Performed By: #### C BC #### [facility] [address] [place] [address] Dr. Anup Paez Platelet mean volume (Bld) [Entitic vol] 11.9 fL Normal 9.5-13.5 [facility] Comment on above: Performed By: #### C BC #### [facility] [address] [place] [address] Dr. Anup Paez PLT 140 103/ul Critically low 150-450 [facility] Comment on above: Performed By: #### C BC #### [facility] [address] [place] [address] Dr. Anup Paez RBC 4.85 106/ul Normal 4.70-6.10 [facility] Comment on above: Performed By: #### C BC #### [facility] [address] [place] [address] Dr. Anup Paez WBC 8.3 103/ul Normal 4.0-11.0 [facility] Comment on above: Performed By: #### C BC #### [facility] [address] [place] [address] Dr. Anup Paez FREE T3on 10-11-2022 FREE T3 2.36 pg/mlL Normal 2.18-3.98 [facility] Comment on above: Performed By: #### F T3 #### [facility] [address] [place] [address] Dr. Anup Paez FREE T4on 10-11-2022 Free T4 [Mass/Vol] 0.97 ng/dL Normal 0.76-1.46 [facility] Comment on above: Performed By: #### F T4 #### [facility] [address] [place] [address] Dr. Anup Paez TSHon 10-11-2022 TSH 0.231 uIU/mL Critically low 0.358-3.740 [facility] Comment on above: Performed By: #### T SH #### [facility] [address] [place] [address] Dr. Anup Paez CBC AUTO DIFFon 02-19-2022 BASO # 0.1 103/ul Normal 0.0-0.1 [facility] Comment on above: Performed By: #### C BC #### [facility] [address] [place] [address] Dr. Anup Paez Basophils/100 WBC (Bld) 1.1 % Normal 0.2-2.0 [facility] Comment on above: Performed By: #### C BC #### [facility] [address] [place] [address] Dr. Anup Paez EO # 0.2 103/ul Normal 0.0-0.7 [facility] Comment on above: Performed By: #### C BC #### [facility] [address] [place] [address] Dr. Anup Paez Eosinophils/100 WBC (Bld) 4.4 % Normal 0.9-7.0 [facility] Comment on above: Performed By: #### C BC #### [facility] [address] [place] [address] Dr. Anup Paez Erythrocyte distribution width (RBC) [Ratio] 12.9 % Normal 11.0-15.0 [facility] Comment on above: Performed By: #### C BC #### [facility] [address] [place] [address] Dr. Anup Paez Hematocrit (Bld) [Volume fraction] 44.4 % Normal 42.0-54.0 [facility] Comment on above: Performed By: #### C BC #### [facility] [address] [place] [address] Dr. Anup Paez Hemoglobin (Bld) [Mass/Vol] 14.4 g/dL Normal 14.0-18.0 [facility] Comment on above: Performed By: #### C BC #### [facility] [address] [place] [address] Dr. Anup Paez IG # 0.01 10e3/ul Normal 0.00-0.03 [facility] Comment on above: Performed By: #### C BC #### [facility] [address] [place] [address] Dr. Anup Paez IG % 0.2 % Normal 0.0-0.5 [facility] Comment on above: Performed By: #### C BC #### [facility] [address] [place] [address] Dr. Anup Paez LYMPH # 1.6 103/ul Normal 1.2-3.8 [facility] Comment on above: Performed By: #### C BC #### [facility] [address] [place] [address] Dr. Anup Paez Lymphocytes/100 WBC (Bld) 35.8 % Normal 20.5-60.0 [facility] Comment on above: Performed By: #### C BC #### [facility] [address] [place] [address] Dr. Anup Paez MANUAL DIFF REQ NO Normal [facility] Comment on above: Performed By: #### C BC #### [facility] [address] [place] [address] Dr. Anup Paez MCH (RBC) [Entitic mass] 30.1 pg Normal 25.9-34.0 [facility] Comment on above: Performed By: #### C BC #### [facility] [address] [place] [address] Dr. Anup Paez MCHC (RBC) [Mass/Vol] 32.4 g/dL Normal 29.9-35.2 [facility] Comment on above: Performed By: #### C BC #### [facility] [address] [place] [address] Dr. Anup Paez MCV (RBC) [Entitic vol] 92.7 fL Normal 80.0-94.0 [facility] Comment on above: Performed By: #### C BC #### [facility] [address] [place] [address] Dr. Anup Paez MONO # 0.5 103/ul Normal 0.3-0.8 [facility] Comment on above: Performed By: #### C BC #### [facility] [address] [place] [address] Dr. Anup Paez Monocytes/100 WBC (Bld) 11.6 % Normal 1.7-12.0 [facility] Comment on above: Performed By: #### C BC #### [facility] [address] [place] [address] Dr. Anup Paez NEUT # 2.1 103/ul Normal 1.4-6.5 [facility] Comment on above: Performed By: #### C BC #### [facility] [address] [place] [address] Dr. Anup Paez Neutrophils/100 WBC (Bld) 46.9 % Normal 43.0-75.0 [facility] Comment on above: Performed By: #### C BC #### [facility] [address] [place] [address] Dr. Anup Paez Platelet mean volume (Bld) [Entitic vol] 12.0 fL Normal 9.5-13.5 [facility] Comment on above: Performed By: #### C BC #### [facility] [address] [place] [address] Dr. Anup Paez PLT 107 103/ul Critically low 150-450 [facility] Comment on above: Performed By: #### C BC #### [facility] [address] [place] [address] Dr. Anup Paez RBC 4.79 106/ul Normal 4.70-6.10 [facility] Comment on above: Performed By: #### C BC #### [facility] [address] [place] [address] Dr. Anup Paez WBC 4.6 103/ul Normal 4.0-11.0 [facility] Comment on above: Performed By: #### C BC #### [facility] [address] [place] [address] Dr. Anup Paez LIPID PROFILEon 02-19-2022 CHOL-HDL RATIO NORM SEE BELOW Normal [facility] Comment on above: Result Comment: 3.3 - 4.4 LOW RISK 4.4 - 7.1 AVERAGE RISK 7.1 - 11.0 MODERATE RISK >11.0 HIGH RISK Performed By: #### C MP, LIPID #### [facility] [address] [place] [address] Dr. Anup Paez Cholesterol [Mass/Vol] 120 mg/dL Normal <=200 [facility] Comment on above: Performed By: #### C MP, LIPID #### [facility] [address] [place] [address] Dr. Anup Paez Cholesterol in HDL [Mass/Vol] 33 mg/dL Critically low 40-60 [facility] Comment on above: Performed By: #### C MP, LIPID #### [facility] [address] [place] [address] Dr. Anup Paez Cholesterol in LDL [Mass/Vol] 68.2 mg/dL Normal [facility] Comment on above: Performed By: #### C MP, LIPID #### [facility] [address] [place] [address] Dr. Anup Paez Cholesterol.total/C holesterol in HDL [Mass ratio] 3.6 {ratio} Normal [facility] Comment on above: Performed By: #### C MP, LIPID #### [facility] [address] [address] [address] Anup Paez HDL NORMAL > or = 60 mg/dl - LO W CARDIOVASCULAR RISK <40 mg/dl - HIGH CARDIOVASCULAR RISK Normal [facility] Comment on above: Performed By: #### C MP, LIPID #### [facility] [address] [address] [address] Anup Paez LDL CALC NORMAL SEE BELOW Normal [facility] Comment on above: Result Comment: <100 mg/dl OPTIMAL 100 - 129 mg/dl NEAR OR ABOVE OPTIMAL 130 - 159 mg/dl BORDERLINE HIGH 160 - 189 mg/dl HIGH >190 mg/dl VERY HIGH Performed By: #### C MP, LIPID #### [facility] [address] [address] [address] Anup Paez Triglyceride [Mass/Vol] 94 mg/dL Normal <=150 [facility] Comment on above: Performed By: #### C MP, LIPID #### [facility] [address] [place] [address] Dr. Anup Paez VLDL CALC 18.8 mg/dL Normal [facility] Comment on above: Performed By: #### C MP, LIPID #### [facility] [address] [address] [address] Anup Paez PROF 14(COMP METB)on 022 Albumin [Mass/Vol] 3.6 g/dL Normal 3.4-5.0 [facility] Comment on above: Performed By: #### C MP, LIPID #### [facility] [address] [address] [address] Anup Paez Albumin/Globulin [Mass ratio] 1.0 {ratio} Normal [facility] Comment on above: Performed By: #### C MP, LIPID #### [facility] [address] [address] [address] Anup Paez ALP [Catalytic activity/Vol] 97 U/L Normal 46-116 [facility] Comment on above: Performed By: #### C MP, LIPID #### [facility] [address] [address] [address] Anup Paez ALT [Catalytic activity/Vol] 33 U/L Normal 16-63 [facility] Comment on above: Performed By: #### C MP, LIPID #### [facility] [address] [address] [address] Anup Paez Anion gap [Moles/Vol] 11.5 mmol/L Normal [facility] Comment on above: Performed By: #### C MP, LIPID #### [facility] [address] [address] [address] Anup Paez AST [Catalytic activity/Vol] 21 U/L Normal 15-37 [facility] Comment on above: Performed By: #### C MP, LIPID #### [facility] [address] [place] [address] Dr. Anup Paez Bilirubin [Mass/Vol] 0.4 mg/dL Normal 0.2-1.0 [facility] Comment on above: Performed By: #### C MP, LIPID #### [facility] [address] [place] [address] Dr. Anup Paez Calcium [Mass/Vol] 8.5 mg/dL Normal 8.5-10.1 [facility] Comment on above: Performed By: #### C MP, LIPID #### [facility] [address] [place] [address] Dr. Anup Paez Chloride [Moles/Vol] 106 mmol/L Normal 98-107 [facility] Comment on above: Performed By: #### C MP, LIPID #### [facility] [address] [address] [address] Anup Paez CO2 [Moles/Vol] 26.3 mmol/L Normal 21.0-32.0 [facility] Comment on above: Performed By: #### C MP, LIPID #### [facility] [address] [place] [address] Dr. Anup Paez Creatinine [Mass/Vol] 1.26 mg/dL Normal 0.70-1.30 [facility] Comment on above: Performed By: #### C MP, LIPID #### [facility] [address] [address] [address] Anup Paez EGFR-AF [place]AN >60 Normal >=60 [facility] Comment on above: Performed By: #### C MP, LIPID #### [facility] [address] [address] [address] Anup Paez EGFR-NON AF [place] 57 mL/min/1.73m2 Critically low >=60 [facility] Comment on above: Performed By: #### C MP, LIPID #### [facility] [address] [address] [address] Anup Paez Globulin (S) [Mass/Vol] 3.6 g/dL Normal [facility] Comment on above: Performed By: #### C MP, LIPID #### [facility] [address] [place] [address] Dr. Anup Paez Glucose [Mass/Vol] 95 mg/dL Normal 74-106 [facility] Comment on above: Performed By: #### C MP, LIPID #### [facility] [address] [address] [address] Anup Paez Potassium [Moles/Vol] 3.8 mmol/L Normal 3.5-5.1 [facility] Comment on above: Performed By: #### C MP, LIPID #### [facility] [address] [place] [address] Dr. Anup Paez Protein [Mass/Vol] 7.2 g/dL Normal 6.4-8.2 [facility] Comment on above: Performed By: #### C MP, LIPID #### [facility] [address] [address] [address] Anup Paez Sodium [Moles/Vol] 140 mmol/L Normal 136-145 [facility] Comment on above: Performed By: #### C MP, LIPID #### [facility] [address] [address] [address] Anup Paez Urea nitrogen [Mass/Vol] 16.0 mg/dL Normal 7.0-18.0 [facility] Comment on above: Performed By: #### C MP, LIPID #### [facility] [address] [place], [place] [address] Dr. Anup Paez Urea nitrogen/Creatinine [Mass ratio] 12.7 mg/mg Normal [facility] Comment on above: Performed By: #### C MP, LIPID #### [facility] [address] [place], [place] [address] Dr. Anup Paez PSA Total (Not a Screen)on 0 04-01-2021 PSA Total (Not a Screen) 0.620 ng/mL Normal 0.000-4.000 [facility] Comment on above: Result Comment: PERF ORMED BY: [place] [address] PATHOLOGIST LIBRARY MANAGER MARITZA MONTANO M.D. Performed By: #### P SATOTAL #### [address] XR ankle LT min 3V*on 2020 XR ankle LT min 3V* [facility] [address] [place] [address] XRay Report Signed Patient: Maximino Clarke MR#: [id number] : 1955 Acct:[id number] Age/Sex: 65 / M ADM Date: 01/11/21 Loc: [facility] Room: Type: [facility] Attending Dr: Ailin PARRA Ordering Provider: AILIN [...] Dinora Brink M.D.01/11/2021 12:35 PM Dictation Location: [place] [address] Transcribed By: [facility] 01/11/21 1235 Dictated By: Dinora Brink MD 01/11/21 1234 Signed By: 01/11/21 1235 [facility] Pulmonary Functionon 020 Pulmonary Function MR #: [id number] [facility] PT. Name: Maximino Clarke Date: 08/14/2020 [...] Scruggs MD Date Trans: 08/23/2020 05:28 P/ [id number] cc: Johanna Blandon M.D. [address] [place] [phone] Normal [facility] ARTERIAL BLOOD GAS W/COOXon 08-14-2020 BASE EXCESS 0 mmol/L Normal -2-3 [facility] Comment on above: Performed By: #### 4 0055 #### [facility] [address] [place] [address], [facility] COHB 1.2 % Normal 0.0-1.5 [facility] Comment on above: Performed By: #### 4 0055 #### [facility] [address] [place] [address], [facility] DELIVERY SYSTEMS ROOM AIR Normal [facility] Comment on above: Performed By: #### 4 0055 #### [facility] [address] [place] [address], [place] FIO2 0 % Normal [facility] Comment on above: Performed By: #### 4 0055 #### [facility] [address] [place] [address], [place] HCO3 (Bld) [Moles/Vol] 23 mmol/L Normal 21-28 [facility] Comment on above: Performed By: #### 4 0055 #### [facility] [address] [place] [address], [place] METHB 1.0 % Normal 0.0-1.5 [facility] Comment on above: Performed By: #### 4 0055 #### [facility] [address] [place] [address], [place] Oxygen (Bld) [Partial pressure] 88 mm[Hg] Normal 83-108 [facility] Comment on above: Performed By: #### 4 0055 #### [facility] [address] [place] [address], [facility] Oxygen saturation in Blood 95.5 % Normal 94.0-97.0 [facility] Comment on above: Performed By: #### 4 0055 #### [facility] [address] [place] [address], [facility] PCO2 32 mmHg Low 35-45 [facility] Comment on above: Performed By: #### 4 0055 #### [facility] [address] [place] [address], [facility] pH (Bld) 7.46 [pH] High 7.35-7.45 [facility] Comment on above: Performed By: #### 4 0055 #### [facility] [address] [place] [address], [facility] THB 12.0 g/dL Normal 12.0-16.3 [facility] Comment on above: Performed By: #### 4 0055 #### [facility] [address] Pulmonary Functionon 05-23- 020 Pulmonary Function MR #: [id number] [facility] PT. Name: Maximino Clarke Date: 05/11/2020 [...] Scruggs MD Date Trans: 05/23/2020 05:08 P/ [id number] cc: Johanna Blandon M.D. [address] [place] [phone] Normal [facility] ARTERIAL BLOOD GAS W/COOXon 05-11-2020 BASE EXCESS -1 mmol/L Normal -2-3 [facility] Comment on above: Performed By: #### 4 0055 #### [facility] [address] [facility]. [address] COHB 1.5 % Normal 0.0-1.5 [facility] Comment on above: Performed By: #### 4 0055 #### [facility] [address] [facility] [address], [facility] DELIVERY SYSTEMS RA Normal [facility] Comment on above: Performed By: #### 4 0055 #### [facility] [address] [facility] [place] [place] [address], [facility] FIO2 0 % Normal [facility] Comment on above: Performed By: #### 4 0055 #### [facility] [address] [place] [address], [facility] HCO3 (Bld) [Moles/Vol] 22 mmol/L Normal 21-28 [facility] Comment on above: Performed By: #### 4 0055 #### [facility] [address] METHB 1.0 % Normal 0.0-1.5 [facility] Comment on above: Performed By: #### 4 0055 #### [facility] [address] Oxygen (Bld) [Partial pressure] 95 mm[Hg] Normal 83-108 [facility] Comment on above: Performed By: #### 4 0055 #### [facility] [address] Oxygen saturation in Blood 96.5 % Normal 94.0-97.0 [facility] Comment on above: Performed By: #### 4 0055 #### [facility] [address] PCO2 31 mmHg Low 35-45 [facility] Comment on above: Performed By: #### 4 0055 #### [facility] [address] pH (Bld) 7.46 [pH] High 7.35-7.45 [facility] Comment on above: Performed By: #### 4 0055 #### [facility] [address] THB 12.2 g/dL Normal 12.0-16.3 [facility] Comment on above: Performed By: #### 4 0055 #### [facility] [address] *SARS-CoV-2 COVID-19on 05-08 [id number] Not Detected Normal Not Detected [facility] Comment on above: Order Comment: The A ptima SARS-CoV-2 assay is a nucleic acid amplification test intended for the qualitative detection of RNA from SARS-CoV-2 isolated and purified from nasopharyngeal (DAIRY INSPECTOR),oropharyngeal (OP), nasal swab, sputum, and bronchoalveolar lavage (BAL) specimens from patients with signs and symptoms of infection who are suspected of COVID-19. Results are for the identification of SARS-CoV-2 RNA. The SARS-CoV-2 RNA is generally detectable during the acute phase of infection. The Aptima SARS-CoV-2 Assay on the [employer] Enterprise and [employer] Enterprise Fusion system is intended for use by laboratory personnel specifically instructed and trained in the operation of the [employer] and Austin Fusion system. The Aptima SARS-CoV-2 assay is [...] information. Performed By: #### 3 [id number] #### [address] CHEST HIGH RESOLUTION WIT HOUT CONTRASTon 04-22-2020 CT CHEST HIGH RESOLUTION WITHOUT CONTRAST [facility] Department of Radiology [address] [place] [id number] Patient Name: MAXIMINO CLARKE : 1955 Sex: M Age: Race: Black Pt. Location: [facility] Patient Status: O Ordered Date: 03/20/2020 1:35:00 PM Completed Date: 04/22/2020 09:10 AM Requesting Provider: NICKY BORDEN Attending Provider: NICKY BORDEN Report Copy To: JOHANNA BLANDON Signs & Symptoms: J84.9 Interstitial pulmonary disease, unspecified I10 History: [employer] with [facility] [address] [address] chest. auth#[id number] valid 03/24-06/24/2020 phone: [phone] No to all COVID questions - jlr [...] achievable Electronically signed: Ana Dhillon. Transcribed by: [email or web address], User Resident: Electronically Signed by: ANA DHILLON @ 04/22/2020 12:42 PM Normal [facility] Comment on above: Order Comment: Brian cols: inspiratory and excpiratory films for air trapping *SARS-CoV-2 COVID-19on 03-19 [id number] Not Detected Normal Not Detected [facility] Comment on above: Order Comment: The A ptima SARS-CoV-2 assay is a nucleic acid amplification test intended for the qualitative detection of RNA from SARS-CoV-2 isolated and purified from nasopharyngeal (DAIRY INSPECTOR), nasal and oropharyngeal (OP) swab specimens from patients with signs and symptoms of infection who are suspected of COVID-19. Results are for the identification of SARS-CoV-2 RNA. The SARS-CoV-2 RNA is generally detectable in nasopharyngeal and oropharyngeal swabs during the acute phase of infection. The Aptima SARS-CoV-2 Assay on the [employer] Fusion system is intended for use by laboratory personnel specifically instructed and trained in the operation of the [employer] Fusion system. The Aptima SARS-CoV-2 assay is [...] information. Performed By: #### 3 [id number] #### [facility] [address] Pulmonary Functionon 10-2 020 Pulmonary Function MR #: [id number] [facility] PT. Name: Maximino Clarke Date: 01/25/2019 [...] Carlin/Masha Mcdermott MD Date Trans: 12/10/2019 12:08 A/ DIMITRIOS_[id number] cc: Johanna Blandon M.D. [address] [place] [id number] Normal [facility] Vital Signs Date Time Vital Sign Value Performing Clinician Facility 04-25-2024 09:50-0400 Body height 172.72 cm [facility] 04-25-2024 09:50-0400 Body mass index (BMI) [Ratio] 29.8 kg/m2 [facility] 04-25-2024 09:50-0400 Body temperature 97.3 [degF] [facility] 04-25-2024 09:50-0400 Body weight 89.07 kg [facility] 04-25-2024 09:50-0400 Diastolic blood pressure 90 mm[Hg] [facility] 04-25-2024 09:50-0400 Heart rate 63 /min [facility] 04-25-2024 09:50-0400 Respiratory rate 16 /min [facility] 04-25-2024 09:50-0400 SaO2% (BldA) [Mass fraction] 96 % [facility] 04-25-2024 09:50-0400 Systolic blood pressure 132 mm[Hg] [facility] 04-01-2024 09:23-0400 Blood Pressure Location Saenz Sarmini [facility] 04-01-2024 09:23-0400 Diastolic blood pressure 80 mm[Hg] Saenz Sarmini [facility] 04-01-2024 09:23-0400 Heart rate 86 /min [facility] Sar[facility] 04-01-2024 09:23-0400 Respiratory rate 18 /min [facility] Sar[facility] 04-01-2024 09:23-0400 Systolic blood pressure 126 mm[Hg] [facility] Sarmini [facility] 12-04-2023 08:58-0500 Blood Pressure Location Jim BAH [facility] 12-04-2023 08:58-0500 Body temperature 98.42 [degF] Jim BAH [facility] 12-04-2023 08:58-0500 Diastolic blood pressure 92 mm[Hg] Jim BAH [facility] 12-04-2023 08:58-0500 Heart rate 90 /min Jim BAH [facility] 12-04-2023 08:58-0500 Respiratory rate 17 /min Jim BAH [facility] 12-04-2023 08:58-0500 Systolic blood pressure 155 mm[Hg] Jim SANGEETA [facility] 07-14-2023 13:35-0400 Diastolic blood pressure 108 mm[Hg] Mary Ellen Emilee [facility] 07-14-2023 13:35-0400 Mean blood pressure 125 mm[Hg] Mary Ellen Emilee [facility] 07-14-2023 13:35-0400 Systolic blood pressure 158 mm[Hg] Mary Ellen Emilee [facility] 11-22-2022 15:37-0500 Blood Pressure Location Grzegorz BUSTILLO [facility] [place] 11-22-2022 15:37-0500 Diastolic blood pressure 90 mm[Hg] Grzegorz ORTIZL [facility] [place] 11-22-2022 15:37-0500 Heart rate 68 /min Grzegorz NILL [facility] [place] 11-22-2022 15:37-0500 Respiratory rate 16 /min Grzegorz ORTIZL [facility] [place] 11-22-2022 15:37-0500 Systolic blood pressure 126 mm[Hg] Grzegorz NILL [facility] [place] Encounters Encounter Date Encounter Type Care Provider Facility Start: 05-02-2024 End: 05-02-2024 Evaluation and management of inpatient BAY Angelo [facility] Start: 04-30-2024 End: 05-02-2024 Evaluation and management of inpatient Terrie [facility] Start: 04-25-2024 End: 04-25-2024 ambulatory [facility] Work Phone: Start: 04-25-2024 End: 04-25-2024 Patient encounter procedure [facility] Nephrology Elpidio Work Phone: Start: 04-24-2024 End: 04-24-2024 Evaluation and management of inpatient [facility] Start: 04-01-2024 End: 04-01-2024 ambulatory Mary Ellen L Emilee Facility:[facility] Start: 04-01-2024 End: 04-01-2024 Patient encounter procedure Letty Ryan [facility] Start: 02-07-2024 ambulatory Mary Ellen Emilee Facility: [facility] Start: 01-02-2024 End: 01-02-2024 ambulatory Mary Ellen L Emilee Facility:[facility] Start: 12-28-2023 End: 12-28-2023 ambulatory Mary Ellen L Emilee Facility:[facility] Start: 12-08-2023 End: 12-08-2023 ambulatory [facility] Start: 12-04-2023 End: 12-04-2023 ambulatory Jim BAH Facility: [facility] Start: 12-04-2023 End: 12-04-2023 Patient encounter procedure Jim BAH [facility] Start: 10-13-2023 End: 10-13-2023 ambulatory Mary Ellen L Emilee Facility:[facility] [place] Start: 10-06-2023 End: 10-06-2023 ambulatory [facility] Start: 08-30-2023 End: 08-30-2023 ambulatory Mary Ellen L Emilee Facility:[facility] [place] Start: 07-14-2023 End: 07-14-2023 Lab Drop off Mary Ellen L Emilee [facility] Start: 07-14-2023 End: 07-14-2023 ambulatory Mary Ellen L Emilee [facility] Start: 12-28-2022 End: 12-28-2022 Patient encounter procedure Grzegorz More NILL [facility] Start: 12-14-2022 End: 12-14-[address] JOHANNA BLANDON . Facility: Start: 11-22-2022 End: 11-22-2022 Patient encounter procedure Grzegorz More NILL [facility] [place] Start: 10-11-2022 End: 10-12-[address] JOHANNA BLANDON . Facility: Start: 02-24-2022 Encounter for genera l adult medical examination without abnormal findings DR JOHANNA BLANDON . [facility] Start: 02-19-2022 End: 02-20-[address] JOHANNA BLANDON . Facility: Start: 02-19-2022 End: 02-20-2022 Encounter for general adult medical examination without abnormal findings DR JOHANNA BLANDON . Facility: Procedures Date Procedure Procedure Detail Performing Clinician Start: 12-14-2022 Colonoscopy Grzegorz NI LL Start: 02-19-[address] JOHANNA LEDEZMA . Comment on above: Performed By: #### [facility] #### [facility] [address] [place] [address] Dr. Anup Paez Start: 04-29-2019 Transrectal biopsy o f prostate using ultrasound guidance Grzegorz ORTIZL Start: 07-17-2017 Cystoscopy w/UD Grzegorz NILL Start: 04-09-2014 Cystoscopy Grzegorz NI LL Comment on above: w/green light laser of prostate Start: 09-11-2013 Colonoscopy Grzegorz NI LL Cardiac catheterization Mateus aearleen ORTIZL Cardiac Stent Grzegorz NILL Extraction of cataract Patri ayaan BAH Fluid Removed from Lungs Jax BUSTILLO Partial resection of colon Rayo BUSTILLO Plan of Treatment Date Care Activity Detail Author Start: 12-09-2024 ambulatory Ambulatory Facility:E [facility] Renal function 2000 panel - Serum or Plasma [facility] Immunizations Immunization Date Immunization Notes Care Provider Fa cility 06-09-2022 influenza virus vaccine, unspecified formulation Grzegorz ORTIZL [facility] [place] 09-21-2021 SARS-CoV-2 (COVID-19 ) mRNA BNT-162b2 vax Grzegorz ORTIZL [facility] [place] 01-05-2021 SARS-CoV-2 (COVID-19 ) mRNA BNT-162b2 vax Grzegorz ORTIZL [facility] [place] 12-14-2020 SARS-CoV-2 (COVID-19 ) mRNA BNT-162b2 vax Grzegorz ORTIZL [facility] [place] Payers Date Payer Category Payer Private Health Insurance [id number] 2023 Medicare [id number] 1959 Medicare [id number] 1959 Unknown [id number] 1959 Unknown [id number] 1955 Unknown [id number] 2.16.84 0.1.222376.3.579.2.593 1955 Unknown [id number] 2.16.84 0.1.637185.3.579.2.593 1955 Unknown [id number] 2.16.84 0.1.484739.3.579.2.593 1955 Unknown [id number] 2.16.8 40.1.490108.3.579.2.727 1955 Unknown [id number] 2.16.8 40.1.555689.3.579.2.727 1955 Unknown [id number] 2.16.8 40.1.176066.3.579.2.727 1955 Unknown [id number] 2.16.8 40.1.638594.3.579.2.727 1955 Unknown [id number] 2.16.8 40.1.483387.3.579.2.727 1955 Unknown [id number] 2.16.8 40.1.463429.3.579.2.727 1955 Unknown [id number] 2.16.8 40.1.607393.3.579.2. 1955 Unknown [id number] 2.16.8 40.1.523242.3.579.2.727 1955 Unknown [id number] 2.16.8 40.1.681680.3.579.2.7 1955 Unknown [id number] 2.16.8 40.1.528554.3.579.2.1286 1955 Unknown [id number] 2.16.8 40.1.083281.3.579.2.128 1955 Unknown [id number] 2.16.8 40.1.306027.3.579.2.1286 1955 Unknown [id number] 2.16.8 40.1.436003.3.579.2.128 1955 Unknown [id number] 2.16.8 40.1.129329.3.579.2.1286 1955 Unknown [id number] 2.16.8 40.1.174860.3.579.2.1286 Self-pay Self Pay [id number] Social History Date Type Detail Facility Start: 11-22-2022 End: 04-25-2024 Tobacco smoking status Never smoked tobacco (finding) [facility] Tobacco smoking status Never [facility] [place] Sex Assigned At Male [facility] Start: 1955 Sex Assigned At Male Donnie [facility] Functional Status Date Assessment Result Facility 04-01-2024 Functional Status N/A [facility] 12-04-2023 Functional Status N/A [facility] 11-22-2022 Functional Status N/A [facility] [place] Clinical Notes 12-14-2022 to 12-08-2023 Note Date & Type Note Facility [...] Radiology: CT chest wo IV contrast Narrative: [facility] (more content not included)... [facility] 12-04-2023 Hospital Discharge instructions Patient Education 12/04/2023 [...] urethra. Follow these instructions at home: Take ozrj-sky-jardiqe and prescription medicines only as told by [...] provider. Document Revised: 04/06/2022 Document Reviewed: 04/06/2022 [employer] Patient Education 2022 [employer]. Follow Up Care 08/29/2023 09:19:56 With:Jim BAH MD, URL Address: [facility] [address] [place] [address]- [phone] When:Within 1 Year(s) Comments:with PSA With:Jim BAH MD, URL Address: [facility] [address] [place] [address]- [phone] When: Unknown [facility] 10-06-2023 Note Cardiology Clinic No te Chief [...] Radiology: CT chest wo IV contrast Narrative: [facility] Department of Radiology [address] [id number] ====== Patient Name: MAXIMINO CLARKE : 1955 Sex: M Age: Race: Black^Black/ Pt. Location: [facility] Patient Status: O Ordered Date: 03/20/2020 1:35:00 PM Completed Date: 04/22/2020 09:10 AM Requesting Provider: NICKY BORDEN Attending Provider: NICKY BORDEN Report Copy To: JOHANNA BLANDON Signs & Symptoms: J84.9 Interstitial pulmonary disease, unspecified I10 History: [employer] with [facility] [address] ct chest. auth#[id number] valid 03/24-06/24/2020 phone: [phone] No to all COVID questions - jlr Comments: Protocols: inspiratory and excpiratory films for air trapping Exam: CT CHEST HIGH RESOLUTION WITHOUT CONTRAST === (more content not included)... [facility] 10-06-2023 Note New patient here to establish care. Ref from Dr. Barlow for CAD. Underwent PCI at [facility] in April 2011. He has been having chest pain the past few months, which occurs with rest. He gets SOB only with stairs and/or elevation. Denies palpitations and lightheadedness. Review of Systems Cardiovascular: Positive for chest pain and dyspnea on exertion. All other systems reviewed and are negative. [facility] 12-14-2022 Note OPERATIVE NOTE OPERATION DATE: 12/14/2022 [...] good condition. CC: Johanna Blandon M.D. [facility] Evaluation + Plan note No data available for this section [facility] [place] Evaluation + Plan note Future Appointments Appointment Date:10/13/2023 01:00:00 PM Scheduled Provider:Mary Ellen Dela Cruz Location:[facility] Appointment Type:[facility] Evaluation + Plan note Future Appointments Appointment Date:12/09/2024 08:45:00 AM Scheduled Provider:Jim BAH MD Location:[facility] Appointment Type:URO Office Visit Diagnostic Tests PendingPSA Total 12/04/23 [facility] Evaluation + Plan note Future Appointments Appointment Date:12/09/2024 08:45:00 AM Scheduled Provider:Jim BAH MD Location:[facility] Appointment Type:URO Office Visit [facility] Evaluation note Diagnosis Onset Date BPH (benign prostatic hyperplasia) acute CAD (coronary artery disease) acute CKD (chronic kidney disease) stage 3, GFR 30-59 ml/min acute Hyperlipidemia acute [id number] acute Pancreatic cyst acute Secondary hyperparathyroidism acute Thrombocytopenia acute [facility] Work Phone: Hospital Discharge instructions No data available for this section [facility] [place] Progress note No data available for this section [facility] [place] Reason for referral (narrative) , EUS Referred by: Connor DHALIWAL, Letty Argueta [facility] Summary Purpose Family History No Family History Records FoundNo Family History Records FoundNo Family History Records Found No data available for this section No data available for this section No Family History Records Found No data available for this section No Family History Records FoundNo Family History Records Found Advance Directives No Advanced Directives Records Found Advance Directive Response Recorded Date/ Time Advance Directives No April 02 0 9:00am Chief Complaint and Reason for Visit Chief Complaint Stage 3 kidney disea se Reason for Visit BPH (benign prostati c hyperplasia) CAD (coronary artery disease) CKD (chronic kidney disease) stage 3, GFR 30-59 ml/min Hyperlipidemia [id number] Pancreatic cyst Secondary hyperparathyroidism Thrombocytopenia Additional Source Comments (unrecognized sect ion and content) No Status Records FoundNo Status Records FoundNo Status Records FoundNo Status Records FoundNo Status Records FoundNo Status Records Found INFORMATION SOURCE (unrecogn ized section and content) DATE CREATED AUTHOR 09/11/2020 [facility] DATE CREATED AUTHOR AUTHOR'S ORGANIZ ATION 11/20/2021 [facility] DATE CREATED AUTHOR AUTHOR'S ORGANIZ ATION 12/21/2022 [facility] DATE CREATED AUTHOR AUTHOR'S ORGANIZ ATION 12/09/2023 [facility] DATE CREATED AUTHOR AUTHOR'S ORGANIZ ATION 04/03/2024 [facility] DATE CREATED AUTHOR AUTHOR'S ORGANIZ ATION 05/05/[address] [facility] Patient Care team informatio n (unrecognized section and content) Team Status: Active Member Role Status Dates Johanna Blandon MD Primary Care Provider Active Team Status: Inactive Member Role Status Dates Johanna Blandon MD Primary Care Provider Active S tart: April 25, 2024 End: April 25, 2024 Cecilia Alford MD Attending Provider Active Start : April 25, 2024 End: April 25, 2024 Goals (unrecognized section and content) Goals may be documented in a n alternate section FOR RECORDS PERTAINING TO PATIENTS WHO ARE [...] BE BASED ON THE PRIMARY CLINICAL RECORDS. [employer] provides no warranty or guarantee of the accuracy or completeness of information in this document.
[2024-05-07 09:03] LABS: Estimated GFR (African America >60 (>=60); Estimated GFR (Non-African Ame 56 (>=60)
--- NOTE | 2024-05-07 09:22 | CT_ITS ---
[address] [address] Patient Name: MAXIMINO CLARKE MRN: [id number] date: 1955 Sex: M Assigned Patient Location: LAB Current Patient Location: Accession/Order Number: [id number] Exam Date: 05/07/2024 09:10 Report Date: 05/08/2024 06:30 At the request of: KAT VASQUEZ Procedure: CT angio chest EXAMINATION: CT angio chest HISTORY: Aortic Ectasia I77.819 COMPARISON: CT chest 11/12/2020 TECHNIQUE: Multi-planar CT images were created with IV contrast. Axial, Coronal, and Sagittal images. Dose reduction techniques were achieved by using automated exposure control and/or adjustment of mA and/or kV according to patient size and/or use of iterative reconstruction technique. 3-D reconstruction was performed on a separate workstation. FINDINGS: VASCULATURE: No pulmonary embolism or abnormal opacity. LUNGS: Moderate-marked emphysematous changes. Mild coarsening of interstitial markings and mild infiltrates versus atelectasis within dependent lung bases. PLEURA: Trace amount of pleural fluid bilaterally. KRISTEN: A few small lymph nodes bilaterally. MEDIASTINUM: No mass or adenopathy. CARDIAC: Suspect mild cardiomegaly. No pericardial effusion. AORTA: Dilated descending aorta, 4.4 cm. CHEST WALL: No mass or axillary adenopathy. BONES: No bone lesion or fracture. LIMITED ABDOMEN: No suspicious findings. Limited images of the upper abdomen. OTHER: Negative. CT/CT angio chest IMPRESSION: 1. Mild aneurysmal dilation of ascending thoracic aorta, 4.4 cm (4.3 cm in 2020). 2. Moderate-marked emphysematous changes, small pleural effusions, and suspected mild pulmonary edema or possibly atelectasis. Electronically authenticated by: EMMANUEL LEE Date: 05/08/2024 06:30
== END 2024-05-07 08:47 | disposition home or self-care (01) ==
LOC: LAB 08:46
PROVIDERS: PCP Nurse Practitioner; Visit Provider Internal Medicine Cardiovascular Disease
DX: I77.819 Aortic ectasia, unspecified site (principal); I11.9 Hypertensive heart disease without heart failure
CPT/HCPCS: 36415; 71275; 82565; Q9967

== ENCOUNTER 2024-05-27 13:37 | Outpatient (OUT) | payer MEDICARE, SELFPAY ==
--- OUTSIDE RECORDS SUMMARY | 2024-05-27 13:58 | XMS_ITS | CCD ---
Author Organization [facility] CliniSymd Care Team Providers Care Health Sciences Program Coordinator Name Role Phone JOHANNA BLANDON Primary Care [...] Physician Mary Ellen Hebert Primary Care Physician KAT VASQUEZ Attending Unavailable KAT VASQUEZ Attending [...] Medication Allergies] Propensity to adverse reactions (disorder) [facility] Repository Medications Current Medications Medication Drug [...] Daily, # 30 tab(s), Refills(s) 11, Pharmacy: [facility] #[id number], 174, cm, 12/04/23 9:07:00 EST, Height/Length Dosing, [...] inh, Inhalation, BID, 1 EA, Refill(s) 11, [facility] #[id number], 172.7, cm, 07/14/23 13:11:00 EDT, Height/Length Dosing, [...] BID, # 180 tab(s), Refills(s) 3, Pharmacy: [facility] #[id number], 174, cm, 01/02/24 10:21:00 EDT, Height/Length Dosing, [...] Start: 04-01-2024 take 1 capsule by mo [facility] once daily Nexium 40 mg Cap-EC 40 mg = 1 cap(s), Oral, Daily, # 90 cap(s), Refills(s) 0, [id number], 174, cm, 04/01/24 9:33:00 EDT, Height/Length Dosing, [...] for 30 day(s), 30 tab(s), Refill(s) 0, [facility] #30227, 172.7, cm, 11/22/22 15:44:00 EST, Height/Length Dosing, [...] Coronary arteriosclerosis; 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: [Atherosclerotic heart disease of [place] coronary artery without angina pectoris] Onset: 3 [...] Onset: 4 Episodic Other aftercare (1 source) shelter (current) use of aspirin; 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: [[employer] [employer] CURRENT USE OF ASPIRIN] Onset: 3 Episodic [...] ity Surgical Pathologyon 024 Surgical Pathology Normal [facility] Comment on above: Result Comment: [facility] [address] [place] [address] Surgical Pathology Consultation Patient Name:MAXIMINO CLARKE:1955 (Age: 69)Gender:MTaken:4Reported:4Physician(s):Surinder El MD ( )Copy To: Rec. #:[id number]: #[id number] Final Pathologic Diagnosis Gastric biopsy: Mild chronic gastritis with intestinal metaplasia present. Negative for helicobacter organisms on routine H&E examination Negative for dysplasia or malignancy. Report Electronically Signed Out st/05/02/2024Lorena Bowles MD Interpretation performed at [facility], [address] [place], [address], License number: [id number]. Clinical History Pancreatic cyst, abdominal pain. 1. H pylori screen Gross Description Received in formalin, labeled VINCE, gastric biopsy are multiple pink-del angel soft tissue fragments aggregating 1.3 x 0.5 x 0.1 cm. The specimen is filtered and entirely submitted in one cassette. (1, ns, [id number] m7, ) MW mxw/04/30/2024GR Specimen(s) Received Gastric biopsy Fee Codes(s): 1; 60413 Gastroenterology Office/Clin ic Noteon 04-01-2024 Gastroenterology Office/Clinic [...] vax 01/05/2021 R (more content not included)... [facility] Comment on above: Result Comment: Elec tronically Signed By: Letty Ryan MD\.br\Date and Time Signed: 04/01/24 10:29 EDT\.br\Electronically Co-Signed By: Liliana Garcia MA\.br\Date and Time Co-Signed: 04/01/24 10:24 EDT Physician Referralon 024 Physician Referral [id number]# 1.00TIFF [facility] Physician Referralon 024 Physician Referral [id number]# 1.00TIFF [facility] RAD - CT Reporton 01-26-2024 RAD - CT Report [id number]#1 .00TIFF [facility] Physician Orderon 01-03-2024 Physician Order [id number]#1 .00TIFF [facility] Ambulatory Visit Summaryon 0 01-02-2024 Ambulatory Visit [...] DHALIW[facility], Jim More Where: [facility] Family Medicine Office/Clini c Noteon 01-02-2024 [...] (COVID-19) mRNA BNT-162b2 vax 12/14/2020 Recorded Normal [facility] Comment on above: Result Comment: Elec tronically Signed By: Mary Ellen Dela Cruz\.br\Date and Time Signed: 01/02/24 11:42 EDT Physician Orderon 01-02-2024 Physician Order [id number]#1 .00TIFF [facility] RAD - CT Reporton 01-02-2024 RAD - CT Report [id number]#1 .00TIFF [facility] Ambulatory Visit Summaryon 0 12-28-2023 Ambulatory Visit [...] DHALIWAL, Jim More Where: [facility] Consenton 12-28-2023 Consent [id number]#1 .00TIFF [facility] Family Medicine Office/Clini c Noteon 12-28-2023 Family [...] day(s), # 14 tab(s), Refills(s) 0, Pharmacy: [facility] #[id number], 174, cm, 12/28/23 8:31:00 EDT, Height/Length Dosing, 93.3, kg, 12/28/23 8:31:00 EDT, Weight Dosing 4. Non-smoker (Z78.9: Other specified health status) continue not smoking Ordered: amoxicillin-clavulana te, = 1 tab(s), Oral, q12hr, X 7 day(s), # 14 tab(s), Refills(s) 0, Pharmacy: [facility] #39263, 174, cm, 12/28/23 8:31:00 EDT, Height/Length Dosing, 93.3, kg, 12/28/23 8:31:00 EDT, Weight Dosing 5. Hypertension (I10: Essential (primary) hypertension) BP continues to run high. 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 he does not have any follow up appointments scheduled with cardiology and they are leaving on a cruise next week. RTC 4 weeks for BP check. Orders: carvedilol, 12.5 mg = 1 tab(s), Oral, BID, # 60 tab(s), Refills(s) 0, Pharmacy: [facility] #[id number], 174, cm, 12/28/23 8:31:00 EDT, Height/Length Dosing, [...] Recorded SARS (more content not included)... Normal [facility] Comment on above: Result Comment: Elec tronically Signed By: Mary Ellen Dela Cruz\.br\Date and Time Signed: 12/28/23 08:48 EDT Office Visiton 12-08-2023 Follow-up visit [id number] Maximino Clarke 1955 M Date Provider Department Center 12/08/2023 3848-KAT VASQUEZ [facility]O [facility] Family History Problem Relation Age of Onset Hypertension Mother Cancer Mother Family Status - Relation Status Age at Mother Level of Service:26705 MD OFFICE/OUTPATIENT ESTABLISHED MOD MDM 30 MIN Reason for Visit and Comments: Follow-up [710173] [facility] Ambulatory Visit Summaryon 0 12-04-2023 Ambulatory [...] DHALIWAL, Jim More Where: [facility] Patient Educationon 12-04-19 Patient Education Urology [...] Follow these instructions at home: ? Take ksam-deo-ojxccri and prescription medicines only as told by [...] the medicine (more content not included)... Normal [facility] Urology Office/Clinic Noteon 12-04-2023 Urology Office/Clinic [...] Urology [address], [place] [address] [phone] Additional Instructions: with PSA Patient Education Benign [...] 90 mcg/inh i (more content not included)... [facility] Comment on above: Result Comment: Elec tronically [...] Jim BAH MD Where: [facility] Family Medicine Office/Clini c Noteon 10-13-2023 Family Medicine Office/Clinic Note HPI Staff Maximino is a 68 year old male presenting for 3 month follow up SOFIA 10/13/23 pt establish care and had been without blood pressure medication for 2 months b/p: 162/112 Pt seen [facility] Drug Worker last week in [facility]. changed blood pressure medication. Patient is here [...] tab(s), Oral, Daily, 30 tab(s), Refill(s) 5, [facility] #28057, 172.7, cm, 07/14/23 13:11:00 EDT, Height/Length Dosing, 92, kg, 07/14/23 13:11:00 EDT, Weight Dosing pravastatin, 20 mg, Oral, Daily, # 90 tab(s), Refills(s) 3, Pharmacy: [facility] #57697, 172.7, cm, 07/14/23 13:11:00 EDT, Height/Length Dosing, [...] (COVID-19) mRNA BNT-162b2 vax 12/14/2020 Recorded Normal [facility] Comment on above: Result Comment: Elec tronically Signed By: Mary Ellen Dela Cruz\.br\Date and Time Signed: 10/13/23 13:23 EST Office Visiton 10-06-2023 Follow-up visit [id number] Maximino Clarke 1955 M Date Provider Department Center 10/06/2023 3848-KAT VASQUEZ [facility] Family History Problem Relation Age of Onset Hypertension Mother Cancer Mother Family Status - Relation Status Age at Mother Level of Service:17415 MD OFFICE/OUTPATIENT NEW MODERATE MDM 45 MINUTES Normal [facility] - Clinical Noteon Retail - Clinical Note [id number]#1 .00TIFF [facility] Consultation Noteon 09-08-20 23 Consultation Note [id number]#1 .00TIFF [facility] Ambulatory Visit Summaryon 1 10-30-2022 Ambulatory Visit [...] EST With: Mary Ellen Dela Cruz Where: [facility] Normal [address] [place] [address]- \.br\ Medications\.br\ What How Much When Why Instructions\.br\ New azithromycin (azithromycin 250 mg Tab) 1 Packets By Mouth As Directed Right otitis media Cough Sore throat Headache BMI 30.0-30.9,adult Non-smoker Duration: 5 Days as directed on package labeling Pickup at [facility] #69312\.br\ New methylPREDNISolone (Medrol 4 mg Tab) 1 Packets By Mouth As Directed Right otitis media Cough Sore throat Headache BMI 30.0-30.9,adult Non-smoker Duration: 6 Days as directed on package labeling Pickup at [facility] #00210\.br\ Unchanged albuterol (albuterol 0.083% Inh Anne 3 [...] Milligram By Mouth Every day\.br\ Pharmacy Information\.br\ [facility] #[id number]: [address] [place], [place] [phone]\.br\ Allergies\.br\ No Known Allergies\.br\ No Known Medication [...] for choosing us for your care.\.br\ \.br\ [facility] Ambulatory Visit Summary MAXIMINO CLARKE :1955 [...] EST With: Mary Ellen Dela Cruz Where: [facility] Normal [address] [place] [address]- \.br\ Medications\.br\ What How Much When Why [...] choosing us for your care.\.br\ \.br\ [facility] Family Medicine Office/Clini c Noteon [...] day(s), # 6 tab(s), Refills(s) 0, Pharmacy: [facility] #[id number], 172.7, cm, 08/30/23 16:58:00 EST, Height/Length Dosing, 92.2, kg, 08/30/23 16:58:00 EST, Weight Dosing methylPREDNISolone, = 1 packet(s), Oral, As Directed, as directed on package labeling, X 6 day(s), # 21 tab(s), Refills(s) 0, Pharmacy: [facility] #07207, 172.7, cm, 08/30/23 16:58:00 EST, Height/Length Dosing, 92.2, kg, 08/30/23 16:58:00 EST, Weight Dosing 2. Cough (R05.9: Cough, unspecified) lung sound are tight pt coughing. pt has follow up with Dr. Barlow had CT of chest done recently Ordered: azithromycin, = 1 packet(s), Oral, As Directed, as directed on package labeling, X 5 day(s), # 6 tab(s), Refills(s) 0, Pharmacy: [facility] #54507, 172.7, cm, 08/30/23 16:58:00 EST, Height/Length Dosing, 92.2, kg, 08/30/23 16:58:00 EST, Weight Dosing methylPREDNISolone, = 1 packet(s), Oral, As Directed, as directed on package labeling, X 6 day(s), # 21 tab(s), Refills(s) 0, [facility], 172.7, cm, 08/30/23 16:58:00 EST, Height/Length Dosing, 92.2, kg, 08/30/23 16:58:00 EST, Weight Dosing 3. Sore throat (J02.9: Acute pharyngitis, unspecified) thrat is red no exudate Ordered: azithromycin, = 1 packet(s), Oral, As Directed, as directed on package labeling, X 5 day(s), # 6 tab(s), Refills(s) 0, Pharmacy: [facility] #58390, 172.7, cm, 08/30/23 16:58:00 EST, Height/Length Dosing, 92.2, kg, 08/30/23 16:58:00 EST, Weight Dosing methylPREDNISolone, = 1 packet(s), Oral, As Directed, as directed on package labeling, X 6 day(s), # 21 tab(s), Refills(s) 0, [facility] [place] [id number], 172.7, cm, 08/30/23 16:58:00 EST, Height/Length Dosing, 92.2, kg, 08/30/23 16:58:00 EST, Weight Dosing 4. Headache (R51.9: Headache, unspecified) sinus tenderness Ordered: azithromycin, = 1 packet(s), Oral, As Directed, as directed on package labeling, X 5 day(s), # 6 tab(s), Refills(s) 0, Pharmacy: [facility] #95554, 172.7, cm, 08/30/23 16:58:00 EST, Height/Length Dosing, 92.2, kg, 08/30/23 16:58:00 EST, Weight Dosing methylPREDNISolone, = 1 packet(s), Oral, As Directed, as directed on package labeling, X 6 day(s), # 21 tab(s), Refills(s) 0, Pharmacy: [facility] #28704, 172.7, cm, 08/30/23 16:58:00 EST, Height/Length Dosing, 92.2, kg, 08/30/23 16:58:00 EST, Weight Dosing 5. BMI 30.0-30.9,adult (Z68.30: Body mass index [BMI] 30.0-30.9, adult) bmi education complete Ordered: azithromycin, = 1 packet(s), Oral, As Directed, as directed on package labeling, X 5 day(s), # 6 tab(s), Refills(s) 0, Pharmacy: [facility] #31829, 172.7, cm, 08/30/23 16:58:00 EST, Height/Length Dosing, 92.2, kg, 08/30/23 16:58:00 EST, Weight Dosing methylPREDNISolone, = 1 packet(s), Oral, As Directed, as directed on package labeling, X 6 day(s), # 21 tab(s), Refills(s) 0, Pharmacy: [facility] #65669, 172.7, cm, 08/30/23 16:58:00 EST, Height/Length Dosing, 92.2, kg, 08/30/23 16:58:00 EST, Weight Dosing 6. Non-smoker (Z78.9: Other specified health status) continue not smoking Ordered (more content not included)... [facility] Comment on above: Result Comment: Elec tronically Signed By: Mary Ellen Dela Cruz\.dipti\Date and Time Signed: 08/30/23 17:11 EST Consultation Noteon 08-03-20 23 Consultation Note [id number]#1 .00TIFF [facility] Physician Referralon 023 Physician Referral [id number]# 1.00TIFF [facility] Ambulatory Visit Summaryon 1 Ambulatory Visit Summary [...] EST With: Mary Ellen Dela Cruz Where: [facility] [place] Normal [facility] Auto Diffon 07-14-2023 Basophils/100 WBC (Bld) 0.7 % Normal 0.0-2.0 [facility] Comment on above: Order Comment: Order Added by Discern Expert. Performed By: #### 2 994990, 8743474, 1009117, 3040484, 74733195, 5350143, 00041156 ####[facility] [address] [place] [address] Basophils/Leukocyte s Auto (Bld) [Pure # fraction] 0.0 E9/L Normal 0.0-0.2 [facility] Comment on above: Order Comment: Order Added by Discern Expert. Performed By: #### 2 629843, 6743440, 9177890, 2612998, 69016993, 8860794, 39109175 ####[address] [place] [address] Eosinophils/100 WBC (Bld) 1.3 % Normal 0.0-8.0 [facility] Comment on above: Order Comment: Order Added by Discern Expert. Performed By: #### 2 929581, 4287268, 4299152, 1968752, 94630592, 7618603, 61396542 ####[address] [address] Eosinophils/Leukocy funmilayo Auto (Bld) [Pure # fraction] 0.1 E9/L Normal 0.0-0.5 [facility] Comment on above: Order Comment: Order Added by Discern Expert. Performed By: #### 2 663078, 1013204, 5988358, 2619476, 24588302, 1530810, 59494030 ####[address] [address] Lymphocytes/100 WBC (Bld) 20.2 % Normal 14.0-50.0 [facility] Comment on above: Order Comment: Order Added by Discern Expert. Performed By: #### 2 582869, 2328318, 9045973, 3370157, 99310131, 9286263, 14853056 ####[address] [address] Lymphocytes/Leukocy funmilayo Auto (Bld) [Pure # fraction] 1.4 E9/L Normal 1.0-4.0 [facility] Comment on above: Order Comment: Order Added by Discern Expert. Performed By: #### 2 325199, 1778099, 7965715, 8677930, 83204416, 3531897, 80519327 ####[address] [address] Monocytes/100 WBC (Bld) 12.3 % Normal 4.0-14.0 [facility] Comment on above: Order Comment: Order Added by Discern Expert. Performed By: #### 2 378536, 8545989, 5335514, 1416780, 18521394, 0824142, 16546078 ####[address] [place] [address] Monocytes/Leukocyte s Auto (Bld) [Pure # fraction] 0.8 E9/L Normal 0.2-1.0 [facility] Comment on above: Order Comment: Order Added by Discern Expert. Performed By: #### 2 409836, 5271028, 9260664, 9551784, 48920243, 9762266, 07475244 ####[address] [place] [address] Neutrophils/100 WBC (Bld) 65.5 % Normal 36.0-75.0 [facility] Comment on above: Order Comment: Order Added by Discern Expert. Performed By: #### 2 119575, 6817597, 7862096, 3656465, 72245916, 1270548, 48966563 ####[address] [address] Neutrophils/Leukocy funmilayo Auto (Bld) [Pure # fraction] 4.5 E9/L Normal 2.0-7.5 [facility] Comment on above: Order Comment: Order Added by Discern Expert. Performed By: #### 2 574479, 9802851, 8673925, 5824538, 11045149, 2134120, 31814361 ####[address] [place] [address] CBC w/ Auto Diffon 3 Erythrocyte distribution width (RBC) [Ratio] 13.9 % Normal 10.9-14.2 [facility] Comment on above: Performed By: #### 2 119627, 5312871, 3747107, 4681642, 72134024, 8155045, 29322435 ####[address] [place] [address] Hematocrit (Bld) [Volume fraction] 47.7 % Normal 37.7-49.0 [facility] Comment on above: Performed By: #### 2 171759, 6663074, 9878002, 5887300, 07694660, 0746854, 83376269 ####[facility] [address] [place] [address] Hemoglobin (Bld) [Mass/Vol] 15.8 g/dL Normal 13.5-17.5 [facility] Comment on above: Performed By: #### 2 945735, 9867867, 7225837, 3649472, 00640193, 8937779, 27188074 ####[facility] [address] [place] [address] MCH (RBC) [Entitic mass] 30.2 pg Normal 27.0-34.0 [facility] Comment on above: Performed By: #### 2 195427, 2583154, 2955229, 2366511, 03962729, 6526869, 61302425 ####[address] [address] MCHC (RBC) [Mass/Vol] 33.2 g/dL Normal 31.4-36.0 [facility] Comment on above: Performed By: #### 2 925269, 3235411, 0300324, 3028909, 94520304, 7323636, 42764969 ####[address] [address] MCV (RBC) [Entitic vol] 90.9 fL Normal 80.0-100.0 [facility] Comment on above: Performed By: #### 2 465053, 8341380, 7216884, 1660881, 17629371, 2780285, 48766676 ####[address] [place] [address] Platelet mean volume (Bld) [Entitic vol] 11.2 fL High 6.4-10.8 [facility] Comment on above: Performed By: #### 2 512411, 2571466, 8362258, 8652381, 99588283, 3928041, 74437231 ####[address] [address] Platelets (Bld) [#/Vol] 105.0 E9/L Low 150.0-500.0 [facility] Comment on above: Performed By: #### 2 384759, 7077687, 0734562, 8596859, 88038930, 5693322, 68266003 ####[facility] [address] [place] [address] RBC (Bld) [#/Vol] 5.2 E12/L Normal 4.3-5.9 [facility] Comment on above: Performed By: #### 2 466191, 3408569, 3034596, 0448343, 03336995, 8598833, 02100895 ####[facility] [address] [place] [address] WBC corrected for nucl RBC Auto (Bld) [#/Vol] 6.8 E9/L Normal 4.0-11.0 [facility] Comment on above: Performed By: #### 2 928452, 6572903, 9908657, 4279725, 34007103, 1074234, 53888534 ####[facility] [address] [place] [address] CHEMISTRYOrdered By: SYSTEM SYSTEM on 07-14-2023 Albumin [...] rate/Area] 51 mL/min/1.73 m2 Low >=59mL/min/1.73 m2 [facility] Chem S Comment on above: Interpretive Data: [...] for this result was chemiluminescence using [employer] C[employer]'s [employer] PSA reagent. Protein [Mass/Vol] 7.8 [...] 07-14-2023 Albumin [Mass/Vol] 4.2 g/dL Normal 3.3-5.0 [facility] Comment on above: Performed By: #### 2 255778, 5133374, 3694141, 3180462, 58325283, 0938251, 52505193 ####[facility] [address] [place] [address] Albumin/Globulin (S) [Mass conc ratio] 1.2 Normal 1.1-2.2 [facility] Comment on above: Performed By: #### 2 451020, 7974482, 6720788, 6362071, 36831424, 7735697, 17228424 ####[facility] [address] [place] [address] ALP [Catalytic activity/Vol] 75 Int._Unit/L Normal 21-98 [facility] Comment on above: Performed By: #### 2 526524, 9137971, 0847422, 6433367, 84983291, 1975270, 63974615 ####[facility] [address] [place] [address] ALT No additional P-5'-P [Catalytic activity/Vol] 28 Int._Unit/L Normal 6-46 [facility] Comment on above: Performed By: #### 2 653891, 5856788, 5379428, 4651067, 66317525, 0064894, 56019486 ####[facility] [address] [place] [address] Anion gap [Moles/Vol] 11 mmol/L Normal 6-16 [facility] Comment on above: Performed By: #### 2 842353, 9156812, 8535102, 1481596, 65520877, 6965470, 45705056 ####[facility] [address] [place] [address] AST [Catalytic activity/Vol] 30 Int._Unit/L Normal 5-43 [facility] Comment on above: Performed By: #### 2 711787, 4839608, 8528669, 0329332, 44010276, 1050656, 10046354 ####[facility] [address] [place] [address] Bilirubin [Mass/Vol] 0.4 mg/dL Normal 0.0-1.1 [facility] Comment on above: Performed By: #### 2 270138, 0607768, 9330177, 8754512, 35290259, 1407891, 68208625 ####[facility] [address] [place] [address] Calcium [Mass/Vol] 10.2 mg/dL Normal 8.9-11.1 [facility] Comment on above: Performed By: #### 2 200509, 0351251, 3945972, 0082574, 68915496, 0686613, 41099343 ####[facility] [address] [place] [address] Chloride [Moles/Vol] 113 mmol/L High 101-111 [facility] Comment on above: Performed By: #### 2 368799, 8529747, 0900779, 3055461, 45679993, 1884892, 39962048 ####[facility] [address] [place] [address] CO2 [Moles/Vol] 28 mmol/L Normal 21-31 [facility] Comment on above: Performed By: #### 2 375205, 9396463, 3867895, 1491638, 81430538, 2472577, 99065208 ####[facility] [address] [place] [address] Creatinine [Mass/Vol] 1.5 mg/dL High 0.5-1.3 [facility] Comment on above: Performed By: #### 2 382931, 3975613, 2214596, 0571170, 28248958, 4441073, 71351208 ####[facility] [address] [place] [address] Globulin (S) [Mass/Vol] 3.6 g/dL Normal 1.4-4.0 [facility] Comment on above: Performed By: #### 2 207762, 0814117, 9726775, 7132091, 88205766, 5485305, 23392791 ####[facility] [address] [place] [address] Glucose [Mass/Vol] 96 mg/dL Normal 55-199 [facility] Comment on above: Result Comment: If t his glucose result represents a fasting glucose, interpretation should refer to the following reference range: 55-99 mg/dL Performed By: #### 2 025608, 8090900, 4506084, 6723210, 60482900, 7143028, 20343102 ####[facility] [address] [place] [address] Potassium [Moles/Vol] 3.6 mmol/L Normal 3.5-5.3 [facility] Comment on above: Performed By: #### 2 678360, 0479127, 2507141, 8240503, 80112082, 1544957, 48245523 ####[facility] [address] [place] [address] Protein [Mass/Vol] 7.8 g/dL Normal 6.0-7.8 [facility] Comment on above: Performed By: #### 2 215110, 1032005, 0330540, 2474074, 33881040, 1357437, 71823471 ####[facility] [address] [place] [address] Sodium [Moles/Vol] 148 mmol/L High 135-145 [facility] Comment on above: Performed By: #### 2 230877, 7529059, 1133006, 6177553, 38915474, 6418027, 99983593 ####[facility] [address] [place] [address] Urea nitrogen [Mass/Vol] 14 mg/dL Normal 5-21 [facility] Comment on above: Performed By: #### 2 776277, [id number], [id number], [id number], [id number], [id number], [id number] ####[facility] [address] [place] [address] Urea nitrogen/Creatinine [Mass ratio] 9 No Units Low 10-20 [facility] Comment on above: Performed By: #### 2 [id number], [id number], [id number], [id number], [id number], [id number], [id number] ####[facility] [address] [place] [address] Family Medicine Office/Clini c Noteon 07-14-2023 Family Medicine Office/Clinic Note HPI Staff Warner is a 68 year old male presenting to establish care Establish Care: History: Any previous diagnosis: BPH, HLD, HTN, Sleep apnea, Emphysema, COPD, interstitial pulmonary fibrosis, legionnaire's disease History of seeing any specialist: [employer] in [place] When was your last doctors visit: Last provider: Dr Blandon Any recent labs:10/11/22 TSH 0.231, wellness labs 01/2022 Health Maintenance UTD: Colonoscopy: 12/28/22 due in 10 years PSA: Acute: Current issues/complaints: SOB: getting more short of breath quicker, hasn't seen his silver solution mixer in a while feeling more tired last [...] inh, Inhalation, BID, 1 EA, Refill(s) 11, [facility] #[id number], 172.7, cm, 07/14/23 13:11:00 EDT, Height/Length Dosing, 92, kg, 07/14/23 13:11:00 EDT, Weight Dosing CBC w/ Auto Diff Comprehensive Metabolic Panel Lab Specimen Collect [id number] Lipid Panel PSA Screen, Total Thyroid Stimulating Hormone 2. Chronic obstructive pulmonary disease (J44.9: Chronic obstructive pulmonary disease, unspecified) pt has had COPD for 22 years. has not been to silver solution mixer in over 10 years. was seeing someone in [place]. Will send referral to Dr. Barlow. will order steroid inhaler today Ordered: budesonide, 1 inh, Inhalation, BID, 1 EA, Refill(s) 11, [facility] #[id number], 172.7, cm, 07/14/23 13:11:00 EDT, Height/Length Dosing, 92, kg, 07/14/23 13:11:00 EDT, Weight Dosing CBC w/ Auto Diff Comprehensive Metabolic Panel [facility] External Ambulatory Referral Lab Specimen Collect [id number] Lipid Panel PSA Screen, Total Thyroid Stimulating Hormone 3. Fatigue (R53.83: Other fatigue) will order labs. BP is elevated Ordered: budesonide, 1 inh, Inhalation, BID, 1 EA, Refill(s) 11, [facility] #[id number], 172.7, cm, 07/14/23 13:11:00 EDT, Height/Length Dosing, 92, kg, 07/14/23 13:11:00 EDT, Weight Dosing CBC w/ Auto Diff Comprehensive Metabolic Panel Lab Specimen Collect [id number] Lipid Panel PSA Screen, Total Thyroid Stimulating Hormone 4. Hypertension (I10: Essential (primary) hypertension) pt has been out of BP meds for 2 months. just started taking it again 2 days ago Ordered: budesonide, 1 inh, Inhalation, BID, 1 EA, Refill(s) 11, [facility] #[id number], 172.7, cm, 07/14/23 13:11:00 EDT, Height/Length Dosing, 92, kg, 07/14/23 13:11:00 EDT, Weight Dosing CBC w/ Auto Diff Comprehensive Metabolic Panel Lab Specimen Collect [id number] Lipid Panel PSA Screen, Total Thyroid Stimulating Hormone 5. Prostate cancer screening (Z12.5: Encounter for screening for malignant neoplasm of prostate) psa ordered today Ordered: budesonide, 1 inh, Inhalation, BID, 1 EA, Refill(s) 11, [facility] #[id number], 172.7, cm, 07/14/23 13:11:00 EDT, Height/Length Dosing, 92, kg, 07/14/23 13:11:00 EDT, Weight Dosing CBC w/ Auto Diff Comprehensive Metabolic Panel Lab Specimen Collect [id number] Lipid Panel PSA Screen, Total Thyroid Stimulating Hormone 6. BMI 31.0-31.9,adult (Z68.31: Body mass index [BMI] 31.0-31.9, adult) BMI education complete Ordered: budesonide, 1 inh, Inhalation, BID, 1 EA, Refill(s) 11, [facility] #[id number], 172.7, cm, 07/14/23 13:11:00 EDT, Height/Length Dosing, 92, kg, 07/14/23 13:11:00 EDT, Weight Dosing CBC w/ Auto Diff Comprehensive Metabolic Panel Lipid Panel PSA Screen, Total Thyroid Stimulating Hormone 7. Non-smoker (Z78.9: Other specified health status) continue not smoking Ordered: budesonide, 1 inh, Inhalation, BID, 1 EA, Refill(s) 11 [facility] #[id number], 172.7, cm, 07/14/23 13:11:00 EDT, Height/Length Dosing, 92, kg, 07/14/23 13:11:00 EDT, Weight Dosing CBC w/ Auto Diff Comprehensive (more content not included)... Normal [facility] Comment on above: Result Comment: Elec [...] 15.8 g/dL Normal 13.5 - 17.5 gm/dL [facility] HemeAutoSS MCH (RBC) [Entitic mass] 30.2 pg Normal 27.0 - 34.0 pg FT HemeAutoSS MCHC (RBC) [Mass/Vol] 33.2 g/dL Normal 31.4 - 36.0 gm/dL FT HemeAutoSS MCV (RBC) [Entitic vol] 90.9 fL Normal 80.0 - 100.0 fL FT HemeAutoSS Platelet mean volume (Bld) [Entitic vol] 11.2 fL High 6.4 - 10.8 fL [facility] HemeAutoSS Platelets (Bld) [#/Vol] 105.0 E9/L Low 150.0 - 500.0 E9/L [facility] HemeAutoSS RBC (Bld) [#/Vol] 5.2 E12/L Normal 4.3 - 5.9 E12/L [facility] HemeAutoSS WBC corrected for nucl RBC Auto (Bld) [#/Vol] 6.8 E9/L Normal 4.0 - 11.0 E9/L [facility] HemeAutoSS Lipid Panelon 07-14-2023 Cholesterol [Mass/Vol] 191 mg/dL Normal 120-200 [facility] Comment on above: Performed By: #### 2 [id number], [id number], [id number], 9945646, [id number], 9671324, [id number] ####[facility] [address] [place] [address] Cholesterol in HDL [Mass/Vol] 29 mg/dL Invalid Interpretation Code [facility] Comment on above: Result Comment: HDL > or equal to 60 mg/dL: Low cardiovascular risk HDL < 40 mg/dL : High cardiovascular risk Performed By: #### 2 [id number], [id number], 5935132, 0030395, [id number], 6329593, [id number] ####[facility] [address] [place] [address] Cholesterol in LDL [Mass/Vol] 106 mg/dL Normal <=129 [facility] Comment on above: Performed By: #### 2 199089, 0219422, 4055957, 3668924, [id number], 0767416, [id number] ####[facility] [address] [place] [address] Cholesterol in VLDL [Mass/Vol] 46 mg/dL High 7-40 [facility] Comment on above: Performed By: #### 2 944297, 1582868, 8844276, 8026844, 80671826, 3160017, [id number] ####[facility] [address] [place] [address] Triglyceride [Mass/Vol] 230 mg/dL High <=149 [facility] Comment on above: Performed By: #### 2 951738, 6091364, 3689187, 7835110, 93301613, 9259812, [id number] ####[facility] [address] [place] [address] PSA Screen, Totalon 07-14-20 Prostate specific Ag [Mass/Vol] 1.4 ng/mL Normal 0.1-3.5 [facility] Comment on above: Result Comment: The concentration of PSA determined by different manufacturers can vary due to differences in assay methods and reagent specificity. Values obtained from different assay methods cannot be used interchangeably. The methodology used for this result was chemiluminescence using [employer] Hybritech PSA reagent. Performed By: #### 2 [id number], 4356279, 4327314, 4549321, 08801234, 5722380, [id number] ####[facility] [address] [place] [address] TSHon 07-14-2023 TSH Qn 0.60 m[IU]/L Normal 0.34-5.60 [facility] Comment on above: Performed By: #### 2 818595, 3480273, 2803728, 1901366, 70987581, 8387173, 65633027 ####[facility] [address] [place] [address] eGFRon 07-14-2023 GFR/1.73 sq M.predicted among non-blacks MDRD (S/P/Bld) [Vol rate/Area] 51 mL/min/1.73 m2 Low >=59 [facility] Comment on above: Order Comment: Order added by Discern Expert. Result Comment: Supervisor [employer] elida kidney disease could be indicated at eGFR's of less than 60 mL/min/1.73m2. Kidney failure is indicated at less than 15 mL/min/1.73m2. Performed By: #### 2 567280, 2771593, 6743616, 5373571, 16922117, 2247981, [id number] ####[facility] [address] [place] [address] CBC AUTO DIFFon 10-11-2022 BASO # 0.0 103/ul Normal 0.0-0.1 [facility] Comment on above: Performed By: #### C BC #### [facility] [address] [place] [address] Dr. Anup Paez Basophils/100 WBC (Bld) 0.4 % Normal 0.2-2.0 [facility] Comment on above: Performed By: #### C BC #### [facility] [address] [place] [address] Dr. Anup Paez EO # 0.0 103/ul Normal 0.0-0.7 [facility] Comment on above: Performed By: #### C BC #### [facility] [address] [place] [address] Dr. Anup Paez Eosinophils/100 WBC (Bld) 0.1 % Critically low 0.9-7.0 [facility] Comment on above: Performed By: #### C BC #### [facility] [address] [place] [address] Dr. Anup Paez Erythrocyte distribution width (RBC) [Ratio] 13.2 % Normal 11.0-15.0 [facility] Comment on above: Performed By: #### C BC #### [facility] [address] [place] [address] Dr. Anup Paez Hematocrit (Bld) [Volume fraction] 43.2 % Normal 42.0-54.0 [facility] Comment on above: Performed By: #### C BC #### [facility] [address] [place] [address] Dr. Anup Paez Hemoglobin (Bld) [Mass/Vol] 14.7 g/dL Normal 14.0-18.0 [facility] Comment on above: Performed By: #### C BC #### [facility] [address] [place] [address] Dr. Anup Paez IG # 0.03 10e3/ul Normal 0.00-0.03 [facility] Comment on above: Performed By: #### C BC #### [facility] [address] [place] [address] Dr. Anup Paez IG % 0.4 % Normal 0.0-0.5 [facility] Comment on above: Performed By: #### C BC #### [facility] [address] [place] [address] Dr. Anup Paez LYMPH # 1.2 103/ul Normal 1.2-3.8 [facility] Comment on above: Performed By: #### C BC #### [facility] [address] [place] [address] Dr. Anup Paez Lymphocytes/100 WBC (Bld) 14.8 % Critically low 20.5-60.0 [facility] Comment on above: Performed By: #### C BC #### [facility] [address] [place] [address] Dr. Anup Paez MANUAL DIFF REQ NO Normal [facility] Comment on above: Performed By: #### C BC #### [facility] [address] [place] [address] Dr. Anup Paez MCH (RBC) [Entitic mass] 30.3 pg Normal 25.9-34.0 [facility] Comment on above: Performed By: #### C BC #### [facility] [address] [place] [address] Dr. Anup Paez MCHC (RBC) [Mass/Vol] 34.0 g/dL Normal 29.9-35.2 [facility] Comment on above: Performed By: #### C BC #### [facility] [address] [address] [address] Anup Paez MCV (RBC) [Entitic vol] 89.1 fL Normal 80.0-94.0 [facility] Comment on above: Performed By: #### C BC #### [facility] [address] [address] [address] Anup Paez MONO # 0.5 103/ul Normal 0.3-0.8 [facility] Comment on above: Performed By: #### C BC #### [facility] [address] [place] [address] Dr. Anup Paez Monocytes/100 WBC (Bld) 5.5 % Normal 1.7-12.0 [facility] Comment on above: Performed By: #### C BC #### [facility] [address] [place] [address] Dr. Anup Paez NEUT # 6.6 103/ul Critically high 1.4-6.5 [facility] Comment on above: Performed By: #### C BC #### [facility] [address] [place] [address] Dr. Anup Paez Neutrophils/100 WBC (Bld) 78.8 % Critically high 43.0-75.0 [facility] Comment on above: Performed By: #### C BC #### [facility] [address] [place] [address] Dr. Anup Paez Platelet mean volume (Bld) [Entitic vol] 11.9 fL Normal 9.5-13.5 [facility] Comment on above: Performed By: #### C BC #### [facility] [address] [place] [address] Dr. Anup Paez PLT 140 103/ul Critically low 150-450 [facility] Comment on above: Performed By: #### C BC #### [facility] [address] [place] [address] Dr. Anup Paez RBC 4.85 106/ul Normal 4.70-6.10 [facility] Comment on above: Performed By: #### C BC #### [facility] [address] [place] [address] Dr. Anup Paez WBC 8.3 103/ul Normal 4.0-11.0 [facility] Comment on above: Performed By: #### C BC #### [facility] [address] [place] [address] Dr. Anup Paez FREE T3on 10-11-2022 FREE T3 2.36 pg/mlL Normal 2.18-3.98 [facility] Comment on above: Performed By: #### F T3 #### [facility] [address] [place] [address] Dr. Anup Paez FREE T4on 10-11-2022 Free T4 [Mass/Vol] 0.97 ng/dL Normal 0.76-1.46 [facility] Comment on above: Performed By: #### F T4 #### [facility] [address] [place] [address] Dr. Anup Paez TSHon 10-11-2022 TSH 0.231 uIU/mL Critically low 0.358-3.740 [facility] Comment on above: Performed By: #### T SH #### [facility] [address] [place] [address] Dr. Anup Paez CBC AUTO DIFFon 02-19-2022 BASO # 0.1 103/ul Normal 0.0-0.1 [facility] Comment on above: Performed By: #### C BC #### [facility] [address] [place] [address] Dr. Anup Paez Basophils/100 WBC (Bld) 1.1 % Normal 0.2-2.0 [facility] Comment on above: Performed By: #### C BC #### [facility] [address] [place] [address] Dr. Anup Paez EO # 0.2 103/ul Normal 0.0-0.7 [facility] Comment on above: Performed By: #### C BC #### [facility] [address] [place] [address] Dr. Anup Paez Eosinophils/100 WBC (Bld) 4.4 % Normal 0.9-7.0 [facility] Comment on above: Performed By: #### C BC #### [facility] [address] [place] [address] Dr. Anup Paez Erythrocyte distribution width (RBC) [Ratio] 12.9 % Normal 11.0-15.0 [facility] Comment on above: Performed By: #### C BC #### [facility] [address] [place] [address] Dr. Anup Paez Hematocrit (Bld) [Volume fraction] 44.4 % Normal 42.0-54.0 [facility] Comment on above: Performed By: #### C BC #### [facility] [address] [place] [address] Dr. Anup Paez Hemoglobin (Bld) [Mass/Vol] 14.4 g/dL Normal 14.0-18.0 [facility] Comment on above: Performed By: #### C BC #### [facility] [address] [place] [address] Dr. Anup Paez IG # 0.01 10e3/ul Normal 0.00-0.03 [facility] Comment on above: Performed By: #### C BC #### [facility] [address] [place] [address] Dr. Anup Paez IG % 0.2 % Normal 0.0-0.5 [facility] Comment on above: Performed By: #### C BC #### [facility] [address] [place] [address] Dr. Anup Paez LYMPH # 1.6 103/ul Normal 1.2-3.8 [facility] Comment on above: Performed By: #### C BC #### [facility] [address] [place] [address] Dr. Anup Paez Lymphocytes/100 WBC (Bld) 35.8 % Normal 20.5-60.0 [facility] Comment on above: Performed By: #### C BC #### [facility] [address] [place] [address] Dr. Anup Paez MANUAL DIFF REQ NO Normal [facility] Comment on above: Performed By: #### C BC #### [facility] [address] [place] [address] Dr. Anup Paez MCH (RBC) [Entitic mass] 30.1 pg Normal 25.9-34.0 [facility] Comment on above: Performed By: #### C BC #### [facility] [address] [place] [address] Dr. Anup Paez MCHC (RBC) [Mass/Vol] 32.4 g/dL Normal 29.9-35.2 [facility] Comment on above: Performed By: #### C BC #### [facility] [address] [place] [address] Dr. Anup Paez MCV (RBC) [Entitic vol] 92.7 fL Normal 80.0-94.0 [facility] Comment on above: Performed By: #### C BC #### [facility] [address] [place] [address] Dr. Anup Paez MONO # 0.5 103/ul Normal 0.3-0.8 [facility] Comment on above: Performed By: #### C BC #### [facility] [address] [place] [address] Dr. Anup Paez Monocytes/100 WBC (Bld) 11.6 % Normal 1.7-12.0 [facility] Comment on above: Performed By: #### C BC #### [facility] [address] [place] [address] Dr. Anup Paez NEUT # 2.1 103/ul Normal 1.4-6.5 [facility] Comment on above: Performed By: #### C BC #### [facility] [address] [place] [address] Dr. Anup Paez Neutrophils/100 WBC (Bld) 46.9 % Normal 43.0-75.0 [facility] Comment on above: Performed By: #### C BC #### [facility] [address] [place] [address] Dr. Anup Paez Platelet mean volume (Bld) [Entitic vol] 12.0 fL Normal 9.5-13.5 [facility] Comment on above: Performed By: #### C BC #### [facility] [address] [place] [address] Dr. Anup Paez PLT 107 103/ul Critically low 150-450 [facility] Comment on above: Performed By: #### C BC #### [facility] [address] [place] [address] Dr. Anup Paez RBC 4.79 106/ul Normal 4.70-6.10 [facility] Comment on above: Performed By: #### C BC #### [facility] [address] [place] [address] Dr. Anup Paez WBC 4.6 103/ul Normal 4.0-11.0 [facility] Comment on above: Performed By: #### C BC #### [facility] [address] [place] [address] Dr. Anup Paez LIPID PROFILEon 02-19-2022 CHOL-HDL RATIO NORM SEE BELOW Normal [facility] Comment on above: Result Comment: 3.3 - 4.4 LOW RISK 4.4 - 7.1 AVERAGE RISK 7.1 - 11.0 MODERATE RISK >11.0 HIGH RISK Performed By: #### C MP, LIPID #### [facility] [address] [place] [address] Dr. Anup Paez Cholesterol [Mass/Vol] 120 mg/dL Normal <=200 [facility] Comment on above: Performed By: #### C MP, LIPID #### [facility] [address] [place] [address] Dr. Anup Paez Cholesterol in HDL [Mass/Vol] 33 mg/dL Critically low 40-60 [facility] Comment on above: Performed By: #### C MP, LIPID #### [facility] [address] [place] [address] Dr. Anup Paez Cholesterol in LDL [Mass/Vol] 68.2 mg/dL Normal [facility] Comment on above: Performed By: #### C MP, LIPID #### [facility] [address] [place] [address] Dr. Anup Paez Cholesterol.total/C holesterol in HDL [Mass ratio] 3.6 {ratio} Normal [facility] Comment on above: Performed By: #### C MP, LIPID #### [facility] [address] [address] [address] Anup Paez HDL NORMAL > or = 60 mg/dl - LO W CARDIOVASCULAR RISK <40 mg/dl - HIGH CARDIOVASCULAR RISK Normal [facility] Comment on above: Performed By: #### C MP, LIPID #### [facility] [address] [address] [address] Anup Paez LDL CALC NORMAL SEE BELOW Normal [facility] Comment on above: Result Comment: <100 mg/dl OPTIMAL 100 - 129 mg/dl NEAR OR ABOVE OPTIMAL 130 - 159 mg/dl BORDERLINE HIGH 160 - 189 mg/dl HIGH >190 mg/dl VERY HIGH Performed By: #### C MP, LIPID #### [facility] [address] [address] [address] Anup Paez Triglyceride [Mass/Vol] 94 mg/dL Normal <=150 [facility] Comment on above: Performed By: #### C MP, LIPID #### [facility] [address] [place] [address] Dr. Anup Paez VLDL CALC 18.8 mg/dL Normal [facility] Comment on above: Performed By: #### C MP, LIPID #### [facility] [address] [address] [address] Anup Paez PROF 14(COMP METB)on 022 Albumin [Mass/Vol] 3.6 g/dL Normal 3.4-5.0 [facility] Comment on above: Performed By: #### C MP, LIPID #### [facility] [address] [address] [address] Anup Paez Albumin/Globulin [Mass ratio] 1.0 {ratio} Normal [facility] Comment on above: Performed By: #### C MP, LIPID #### [facility] [address] [address] [address] Anup Paez ALP [Catalytic activity/Vol] 97 U/L Normal 46-116 [facility] Comment on above: Performed By: #### C MP, LIPID #### [facility] [address] [address] [address] Anup Paze ALT [Catalytic activity/Vol] 33 U/L Normal 16-63 [facility] Comment on above: Performed By: #### C MP, LIPID #### [facility] [address] [address] [address] Anup Paez Anion gap [Moles/Vol] 11.5 mmol/L Normal [facility] Comment on above: Performed By: #### C MP, LIPID #### [facility] [address] [address] [address] Anup Paez AST [Catalytic activity/Vol] 21 U/L Normal 15-37 [facility] Comment on above: Performed By: #### C MP, LIPID #### [facility] [address] [place] [address] Dr. Anup Paez Bilirubin [Mass/Vol] 0.4 mg/dL Normal 0.2-1.0 [facility] Comment on above: Performed By: #### C MP, LIPID #### [facility] [address] [place] [address] Dr. Anup Paez Calcium [Mass/Vol] 8.5 mg/dL Normal 8.5-10.1 [facility] Comment on above: Performed By: #### C MP, LIPID #### [facility] [address] [place] [address] Dr. Anup Paez Chloride [Moles/Vol] 106 mmol/L Normal 98-107 [facility] Comment on above: Performed By: #### C MP, LIPID #### [facility] [address] [address] [address] Anup Paez CO2 [Moles/Vol] 26.3 mmol/L Normal 21.0-32.0 [facility] Comment on above: Performed By: #### C MP, LIPID #### [facility] [address] [place] [address] Dr. Anup Paez Creatinine [Mass/Vol] 1.26 mg/dL Normal 0.70-1.30 [facility] Comment on above: Performed By: #### C MP, LIPID #### [facility] [address] [address] [address] Anup Paez EGFR-AF KENYAN >60 Normal >=60 [facility] Comment on above: Performed By: #### C MP, LIPID #### [facility] [address] [address] [address] Anup Paez EGFR-NON AF KENYAN 57 mL/min/1.73m2 Critically low >=60 [facility] Comment on above: Performed By: #### C MP, LIPID #### [facility] [address] [address] [address] Anup Paez Globulin (S) [Mass/Vol] 3.6 g/dL Normal [facility] Comment on above: Performed By: #### C MP, LIPID #### [facility] [address] [place] [address] Dr. Anup Paez Glucose [Mass/Vol] 95 mg/dL Normal 74-106 [facility] Comment on above: Performed By: #### C MP, LIPID #### [facility] [address] [address] [address] Anup Paez Potassium [Moles/Vol] 3.8 mmol/L Normal 3.5-5.1 [facility] Comment on above: Performed By: #### C MP, LIPID #### [facility] [address] [place] [address] Dr. Anup Paez Protein [Mass/Vol] 7.2 g/dL Normal 6.4-8.2 [facility] Comment on above: Performed By: #### C MP, LIPID #### [facility] [address] [address] [address] Anup Paez Sodium [Moles/Vol] 140 mmol/L Normal 136-145 [facility] Comment on above: Performed By: #### C MP, LIPID #### [facility] [address] [address] [address] Anup Paez Urea nitrogen [Mass/Vol] 16.0 mg/dL Normal 7.0-18.0 [facility] Comment on above: Performed By: #### C MP, LIPID #### [facility] [address] [place], [place] [address] Dr. Anup Paez Urea nitrogen/Creatinine [Mass ratio] 12.7 mg/mg Normal [facility] Comment on above: Performed By: #### C MP, LIPID #### [facility] [address] [place], [place] [address] Dr. Anup Paez PSA Total (Not a Screen)on 0 04-01-2021 PSA Total (Not a Screen) 0.620 ng/mL Normal 0.000-4.000 [facility] Comment on above: Result Comment: PERF ORMED BY: [place] [address] PATHOLOGIST BORING MACHINE OPERATOR HORIZONTAL MARITZA MONTANO M.D. Performed By: #### P SATOTAL #### [address] XR ankle LT min 3V*on 2020 XR ankle LT min 3V* [facility] Main [place] [address] [place] [address] XRay Report Signed Patient: Maximino Clarke MR#: [id number] : 1955 Acct:[id number] Age/Sex: 65 / M ADM Date: 01/11/21 [facility] Room: Type: [facility] Attending Dr: Ailin PARRA Ordering Provider: AILIN [...] Dinora Brink M.D.01/11/2021 12:35 PM Dictation Location: [place] [address] Transcribed By: [facility] 01/11/21 1235 Dictated By: Dinora Brink MD 01/11/21 1234 Signed By: 01/11/21 1235 [facility] Pulmonary Functionon 020 Pulmonary Function MR #: [id number] [facility] PT. Name: Maximino Clarke Date: [...] Scruggs MD Date Trans: 08/23/2020 05:28 P/ [id number] cc: Johanna Blandon M.D. [address] [place] [phone] Normal [facility] ARTERIAL BLOOD GAS W/COOXon 08-14-2020 BASE EXCESS 0 mmol/L Normal -2-3 [facility] Comment on above: Performed By: #### 4 0055 #### [facility] [address] [place] [address], [facility] COHB 1.2 % Normal 0.0-1.5 [facility] Comment on above: Performed By: #### 4 0055 #### [facility] [address] [place] [address], [facility] DELIVERY SYSTEMS ROOM AIR Normal [facility] Comment on above: Performed By: #### 4 0055 #### [facility] [address] [place] [address], [place] FIO2 0 % Normal [facility] Comment on above: Performed By: #### 4 0055 #### [facility] [address] [place] [address], [place] HCO3 (Bld) [Moles/Vol] 23 mmol/L Normal 21-28 [facility] Comment on above: Performed By: #### 4 0055 #### [facility] [address] [place] [address], [place] METHB 1.0 % Normal 0.0-1.5 [facility] Comment on above: Performed By: #### 4 0055 #### [facility] [address] [place] [address], [place] Oxygen (Bld) [Partial pressure] 88 mm[Hg] Normal 83-108 [facility] Comment on above: Performed By: #### 4 0055 #### [facility] [address] [place] [address], [facility] Oxygen saturation in Blood 95.5 % Normal 94.0-97.0 [facility] Comment on above: Performed By: #### 4 0055 #### [facility] [address] [place] [address], [facility] PCO2 32 mmHg Low 35-45 [facility] Comment on above: Performed By: #### 4 0055 #### [facility] [address] [place] [address], [facility] pH (Bld) 7.46 [pH] High 7.35-7.45 [facility] Comment on above: Performed By: #### 4 0055 #### [facility] [address] [place] [address], [facility] THB 12.0 g/dL Normal 12.0-16.3 [facility] Comment on above: Performed By: #### 4 0055 #### [facility] [address] Pulmonary Functionon 05-23- 020 Pulmonary Function MR #: [id number] [facility] PT. Name: Maximino Clarke Date: [...] Scruggs MD Date Trans: 05/23/2020 05:08 P/ [id number] cc: Johanna Blandon M.D. [address] [place] [phone] Normal [facility] ARTERIAL BLOOD GAS W/COOXon 05-11-2020 BASE EXCESS -1 mmol/L Normal -2-3 [facility] Comment on above: Performed By: #### 4 0055 #### [facility] [address] [facility]. [address] COHB 1.5 % Normal 0.0-1.5 [facility] Comment on above: Performed By: #### 4 0055 #### [facility] [address] [facility] [place] [address], [facility] DELIVERY SYSTEMS RA Normal [facility] Comment on above: Performed By: #### 4 0055 #### [facility] [address] [facility] [address], [facility] FIO2 0 % Normal [facility] Comment on above: Performed By: #### 4 0055 #### [facility] [address] [place] [address], [facility] HCO3 (Bld) [Moles/Vol] 22 mmol/L Normal 21-28 [facility] Comment on above: Performed By: #### 4 0055 #### [facility] [address] METHB 1.0 % Normal 0.0-1.5 [facility] Comment on above: Performed By: #### 4 0055 #### [facility] [address] Oxygen (Bld) [Partial pressure] 95 mm[Hg] Normal 83-108 [facility] Comment on above: Performed By: #### 4 0055 #### [facility] [address] Oxygen saturation in Blood 96.5 % Normal 94.0-97.0 [facility] Comment on above: Performed By: #### 4 0055 #### [facility] [address] PCO2 31 mmHg Low 35-45 [facility] Comment on above: Performed By: #### 4 0055 #### [facility] [address] pH (Bld) 7.46 [pH] High 7.35-7.45 [facility] Comment on above: Performed By: #### 4 0055 #### [facility] [address] THB 12.2 g/dL Normal 12.0-16.3 [facility] Comment on above: Performed By: #### 4 0055 #### [facility] [address] *SARS-CoV-2 COVID-19on 05-08 [id number] Not Detected Normal Not Detected [facility] Comment on above: Order Comment: The A ptima SARS-CoV-2 assay is a nucleic acid amplification test intended for the qualitative detection of RNA from SARS-CoV-2 isolated and purified from nasopharyngeal (BUILDING CONSULTANT),oropharyngeal (OP), nasal swab, sputum, and bronchoalveolar lavage (BAL) specimens from patients with signs and symptoms of infection who are suspected of COVID-19. Results are for the identification of SARS-CoV-2 RNA. The SARS-CoV-2 RNA is generally detectable during the acute phase of infection. The Aptima SARS-CoV-2 Assay on the ieCrowd and ieCrowd Fusion system is intended for use by laboratory personnel specifically instructed and trained in the operation of the Maramec and Maramec Fusion system. The Aptima SARS-CoV-2 assay is [...] information. Performed By: #### 3 1792 #### [address] CHEST HIGH RESOLUTION WIT HOUT CONTRASTon 04-22-2020 CT CHEST HIGH RESOLUTION WITHOUT CONTRAST [facility] Department of Radiology [address] [place] [phone] Patient Name: MAXIMINO CLARKE : 1955 Sex: M Age: Race: Black Pt. Location: [facility] Patient Status: O Ordered Date: 03/20/2020 1:35:00 PM Completed Date: 04/22/2020 09:10 AM Requesting Provider: NICKY BORDEN Attending Provider: NICKY BORDEN Report Copy To: JOHANNA BLANDON Signs & Symptoms: J84.9 Interstitial pulmonary disease, unspecified I10 History: [employer] [facility] with [facility] [address] ct chest. auth#[id number] valid 03/24-06/24/2020 phone: [phone] No to all COVID questions - jlr [...] achievable Electronically signed: Ana Dhillon. Transcribed by: [email or web address], User Resident: Electronically Signed by: ANA DHILLON @ 04/22/2020 12:42 PM Normal [facility] Comment on above: Order Comment: Brian cols: inspiratory and excpiratory films for air trapping *SARS-CoV-2 COVID-19on 03-19 [id number] Not Detected Normal Not Detected [facility] Comment on above: Order Comment: The A ptima SARS-CoV-2 assay is a nucleic acid amplification test intended for the qualitative detection of RNA from SARS-CoV-2 isolated and purified from nasopharyngeal (BUILDING CONSULTANT), nasal and oropharyngeal (OP) swab specimens from patients with signs and symptoms of infection who are suspected of COVID-19. Results are for the identification of SARS-CoV-2 RNA. The SARS-CoV-2 RNA is generally detectable in nasopharyngeal and oropharyngeal swabs during the acute phase of infection. The Aptima SARS-CoV-2 Assay on the Maramec and Maramec Fusion system is intended for use by laboratory personnel specifically instructed and trained in the operation of the Maramec and Maramec Fusion system. The Aptima SARS-CoV-2 assay is [...] information. Performed By: #### 3 1792 #### [facility] [address] Pulmonary Functionon 10-2 020 Pulmonary Function MR #: [id number] [facility] PT. Name: Maximino Clarke Date: [...] Mcdermott MD Date Trans: 12/10/2019 12:08 A/ [id number] cc: Johanna Blandon M.D. [address] [place] [phone] Normal [facility] Vital Signs Date Time Vital Sign Value Performing Clinician Facility 04-25-2024 09:50-0400 Body height 172.72 cm [facility] 04-25-2024 09:50-0400 Body mass index (BMI) [Ratio] 29.8 kg/m2 [facility] 04-25-2024 09:50-0400 Body temperature 97.3 [degF] [facility] 04-25-2024 09:50-0400 Body weight 89.07 kg [facility] 04-25-2024 09:50-0400 Diastolic blood pressure 90 mm[Hg] [facility] 04-25-2024 09:50-0400 Heart rate 63 /min [facility] 04-25-2024 09:50-0400 Respiratory rate 16 /min [facility] 04-25-2024 09:50-0400 SaO2% (BldA) [Mass fraction] 96 % [facility] 04-25-2024 09:50-0400 Systolic blood pressure 132 mm[Hg] [facility] 04-01-2024 09:23-0400 Blood Pressure Location Saenz Sarmini [facility] 04-01-2024 09:23-0400 Diastolic blood pressure 80 mm[Hg] Saenz Sarmini [facility] 04-01-2024 09:23-0400 Heart rate 86 /min Saenz Sarmini [facility] 04-01-2024 09:23-0400 Respiratory rate 18 /min Saenz Sarmini [facility] 04-01-2024 09:23-0400 Systolic blood pressure 126 mm[Hg] Sanez Sarmini [facility] 12-04-2023 08:58-0500 Blood Pressure Location Jim BAH [facility] 12-04-2023 08:58-0500 Body temperature 98.42 [degF] Jim BAH [facility] 12-04-2023 08:58-0500 Diastolic blood pressure 92 mm[Hg] Jim BAH [facility] 12-04-2023 08:58-0500 Heart rate 90 /min Jim BAH [facility] 12-04-2023 08:58-0500 Respiratory rate 17 /min Jim BAH [facility] 12-04-2023 08:58-0500 Systolic blood pressure 155 mm[Hg] Jim SANGEETA [facility] 07-14-2023 13:35-0400 Diastolic blood pressure 108 mm[Hg] Mary Ellen Emilee [facility] 07-14-2023 13:35-0400 Mean blood pressure 125 mm[Hg] Mary Ellen Emilee [facility] 07-14-2023 13:35-0400 Systolic blood pressure 158 mm[Hg] Mary Ellen Emilee [facility] 11-22-2022 15:37-0500 Blood Pressure Location Grzegorz BUSTILLO [facility] 11-22-2022 15:37-0500 Diastolic blood pressure 90 mm[Hg] Grzegorz ORTIZL [facility] 11-22-2022 15:37-0500 Heart rate 68 /min Grzegorz NILL [facility] 11-22-2022 15:37-0500 Respiratory rate 16 /min Grzegorz ORTIZL [facility] 11-22-2022 15:37-0500 Systolic blood pressure 126 mm[Hg] Grzegorz NILL [facility] Encounters Encounter Date Encounter Type Care Provider Facility Start: 05-02-2024 End: 05-02-2024 Evaluation and management of inpatient [place] [facility] Start: 04-30-2024 End: 05-02-2024 Evaluation and management of inpatient [facility] Start: 04-25-2024 End: 04-25-2024 ambulatory [facility] Work Phone: Start: 04-25-2024 End: 04-25-2024 Patient encounter procedure [facility] Work Phone: Start: 04-24-2024 End: 04-24-2024 Evaluation and management of inpatient [facility] Start: 04-01-2024 End: 04-01-2024 ambulatory Mary Ellen L Emilee Facility:[facility] Start: 04-01-2024 End: 04-01-2024 Patient encounter procedure Letty Ryan [facility] Start: 02-07-2024 ambulatory Mary Ellen Emilee Facility: [facility] Start: 01-02-2024 End: 01-02-2024 ambulatory Mary Ellen L Emilee Facility:[facility] Start: 12-28-2023 End: 12-28-2023 ambulatory Mary Ellen L Emilee Facility:[facility] Start: 12-08-2023 End: 12-08-2023 ambulatory [facility] Start: 12-04-2023 End: 12-04-2023 ambulatory Jim BAH Facility: [facility] Start: 12-04-2023 End: 12-04-2023 Patient encounter procedure Jim BAH [facility] Start: 10-13-2023 End: 10-13-2023 ambulatory Mary Ellen L Emilee Facility:[facility] Start: 10-06-2023 End: 10-06-2023 ambulatory [facility] Start: 08-30-2023 End: 08-30-2023 ambulatory Mary Ellen L Emilee Facility:[facility] Start: 07-14-2023 End: 07-14-2023 Lab Drop off Mary Ellen L Emilee [facility] Start: 07-14-2023 End: 07-14-2023 ambulatory Mary Ellen L Emilee Facility:[facility] Start: 12-28-2022 End: 12-28-2022 Patient encounter procedure Grzegorz More NILL [facility] Start: 12-14-2022 End: 12-14-[address] JOHANNA BLANDON . Facility: Start: 11-22-2022 End: 11-22-2022 Patient encounter procedure Grzegorz More NILL [facility] Start: 10-11-2022 End: 10-12-[address] JOHANNA BLANDON . Facility: Start: 02-24-2022 Encounter for genera l adult medical examination without abnormal findings DR JOHANNA BLANDON . [facility] Start: 02-19-2022 End: 02-20-[address] JOHANNA BLANDON . Facility: Start: 02-19-2022 End: 02-20-2022 Encounter for general adult medical examination without abnormal findings DR JOHANNA BLANDON . Facility: Procedures Date Procedure Procedure Detail Performing Clinician Start: 12-14-2022 Colonoscopy Grzegorz NI LL Start: 02-19-[address] JOHANNA LEDEZMA . Comment on above: Performed By: #### [facility] #### [facility] [address] [place] [address] Dr. Anup Paez Start: 04-29-2019 Transrectal biopsy [...] Detail Author Start: 12-09-2024 ambulatory Ambulatory Facility:[facility] Renal function 2000 panel - Serum or Plasma [facility] Immunizations Immunization Date Immunization Notes Care Provider Fa cility 06-09-2022 influenza virus vaccine, unspecified formulation Grzegorz ORTIZL [facility] 09-21-2021 SARS-CoV-2 (COVID-19 ) mRNA BNT-162b2 vax Grzegorz ORTIZL [facility] 01-05-2021 SARS-CoV-2 (COVID-19 ) mRNA BNT-162b2 vax Grzegorz ORTIZL [facility] 12-14-2020 SARS-CoV-2 (COVID-19 ) mRNA BNT-162b2 vax Grzegorz ORTIZL [facility] Payers Date Payer Category Payer Private Health Insurance [id number] 2023 Medicare [id number] 1959 Medicare [id number] 1959 Unknown [id number] 1959 Unknown [id number] 1955 Unknown [id number] 2.16.84 0.1.987698.3.579.2.593 1955 Unknown [id number] 2.16.84 0.1.156822.3.579.2.593 1955 Unknown [id number] 2.16.84 0.1.237959.3.579.2.593 1955 Unknown [id number] 2.16.8 40.1.700275.3.579.2.727 1955 Unknown [id number] 2.16.8 40.1.950707.3.579.2.727 1957 Unknown [id number] 2.16.8 40.1.121100.3.579.2.727 1957 Unknown [id number] 2.16.8 40.1.392005.3.579.2.727 1957 Unknown [id number] 2.16.8 40.1.837668.3.579.2.727 1957 Unknown [id number] 2.16.8 40.1.959844.3.579.2.727 1955 Unknown [id number] 2.16.8 40.1.818016.3.579.2. 1955 Unknown [id number] 2.16.8 40.1.277975.3.579.2.727 1955 Unknown [id number] 2.16.8 40.1.910574.3.579.2.7 1955 Unknown [id number] 2.16.8 40.1.236729.3.579.2.1286 1955 Unknown [id number] 2.16.8 40.1.550974.3.579.2.128 1955 Unknown [id number] 2.16.8 40.1.155210.3.579.2.1286 1955 Unknown [id number] 2.16.8 40.1.534541.3.579.2.128 1955 Unknown [id number] 2.16.8 40.1.129500.3.579.2.1286 1955 Unknown [id number] 2.16.8 40.1.485735.3.579.2.1286 Self-pay Self Pay [id number] Social History Date Type Detail Facility Start: 11-22-2022 End: 04-25-2024 Tobacco smoking status Never smoked tobacco (finding) [facility] Tobacco smoking status Never [facility] Sex Assigned At Male [facility] Start: 1955 Sex Assigned At Male [facility] Functional Status Date Assessment Result Facility 04-01-2024 Functional Status N/A [facility] 12-04-2023 Functional Status N/A [facility] 11-22-2022 Functional Status N/A [facility] Clinical Notes 12-14-2022 to 12-08-2023 Note Date [...] Radiology: CT chest wo IV contrast Narrative: [facility] (more content not included)... [facility] 12-04-2023 Hospital Discharge instructions Patient Education 12/04/2023 [...] urethra. Follow these instructions at home: Take rrke-zob-icdktdd and prescription medicines only as told by [...] provider. Document Revised: 04/06/2022 Document Reviewed: 04/06/2022 [employer] Patient Education 2022 [employer]. Follow Up Care 08/29/2023 09:19:56 With:Jim BAH MD, URL Address: [facility] [address] [place] [address]- [phone] When:Within 1 Year(s) Comments:with PSA With:Jim BAH MD, URL Address: [facility] [address] [address]- [phone] When: Unknown [facility] 10-06-2023 Note Cardiology Clinic No te Chief [...] Radiology: CT chest wo IV contrast Narrative: [facility] Department of Radiology [address] [id number] ====== Patient Name: MAXIMINO CLARKE : 1955 Sex: M Age: Race: Black^Black/ Pt. Location: [facility] Patient Status: O Ordered Date: 03/20/2020 1:35:00 PM Completed Date: 04/22/2020 09:10 AM Requesting Provider: NICKY BORDEN Attending Provider: NICKY BORDEN Report Copy To: JOHANNA BLANDON Signs & Symptoms: J84.9 Interstitial pulmonary disease, unspecified I10 History: [employer] pc with [facility] [address] ct chest. auth#[id number] valid 03/24-06/24/2020 phone: [phone] No to all COVID questions - jlr Comments: Protocols: inspiratory and excpiratory films for air trapping Exam: CT CHEST HIGH RESOLUTION WITHOUT CONTRAST === (more content not included)... [facility] 10-06-2023 Note New patient here to establish care. Ref from Dr. Barlow for CAD. Underwent PCI at [facility] in April 2011. He has been having chest pain the past few months, which occurs with rest. He gets SOB only with stairs and/or elevation. Denies palpitations and lightheadedness. Review of Systems Cardiovascular: Positive for chest pain and dyspnea on exertion. All other systems reviewed and are negative. [facility] 12-14-2022 Note OPERATIVE NOTE OPERATION DATE: 12/14/2022 [...] good condition. CC: Johanna Blandon M.D. [facility] Evaluation + Plan note No data available for this section [facility] Evaluation + Plan note Future Appointments Appointment Date:10/13/2023 01:00:00 PM Scheduled Provider:Mary Ellen Dela Cruz Location:[facility] Appointment Type:[facility] Evaluation + Plan note Future Appointments Appointment Date:12/09/2024 08:45:00 AM Scheduled Provider:Jim BAH MD Location:[facility] Appointment Type:URO Office Visit Diagnostic Tests PendingPSA Total 12/04/23 [facility] Evaluation + Plan note Future Appointments Appointment Date:12/09/2024 08:45:00 AM Scheduled Provider:Jim BAH MD Location:[facility] Appointment Type:URO Office Visit [facility] Evaluation note Diagnosis Onset Date BPH (benign prostatic hyperplasia) acute CAD (coronary artery disease) acute CKD (chronic kidney disease) stage 3, GFR 30-59 ml/min acute Hyperlipidemia acute [id number] acute Pancreatic cyst acute Secondary hyperparathyroidism acute Thrombocytopenia acute [facility] Work Phone: Hospital Discharge instructions No data available for this section General [facility] [place] Progress note No data available for this section [facility] [place] Reason for referral (narrative) , EUS Referred by: Connor DHALIWAL, Letty Argueta [facility] Summary Purpose Family History No Family History [...] disease) stage 3, GFR 30-59 ml/min Hyperlipidemia [id number] Pancreatic cyst Secondary hyperparathyroidism Thrombocytopenia Additional Source Comments (unrecognized sect ion and content) No Status Records FoundNo Status Records FoundNo Status Records FoundNo Status Records FoundNo Status Records FoundNo Status Records Found INFORMATION SOURCE (unrecogn ized section and content) DATE CREATED AUTHOR 09/11/2020 [facility] DATE CREATED AUTHOR AUTHOR'S ORGANIZ ATION 11/20/2021 [facility] DATE CREATED AUTHOR AUTHOR'S ORGANIZ ATION 12/21/2022 [facility] DATE CREATED AUTHOR AUTHOR'S ORGANIZ ATION 12/09/2023 [facility] DATE CREATED AUTHOR AUTHOR'S ORGANIZ ATION 04/03/2024 [facility] DATE CREATED AUTHOR AUTHOR'S ORGANIZ ATION 05/05/2024 [facility] Patient Care team informatio n (unrecognized [...] BE BASED ON THE PRIMARY CLINICAL RECORDS. [employer] provides no warranty or guarantee of the accuracy or completeness of information in this document.
[2024-05-27 14:29] LABS: Anion Gap 14.6; BUN Creatinine Ratio 11.3; Calcium 8.8 mg/dL (8.5-10.1); Carbon Dioxide 23.5 mmol/L (21.0-32.0); Chloride 109 mmol/L (98-107); Estimated GFR (African America >60 (>=60); Estimated GFR (Non-African Ame 50 (>=60); Glucose 118 mg/dL (74-106); Potassium 3.1 mmol/L (3.5-5.1); Sodium 144 mmol/L (136-145)
== END 2024-05-27 13:38 | disposition home or self-care (01) ==
LOC: LAB 13:38
PROVIDERS: PCP Nurse Practitioner; Visit Provider Internal Medicine Cardiovascular Disease
DX: I11.9 Hypertensive heart disease without heart failure (principal)
CPT/HCPCS: 36415; 80048

== ENCOUNTER 2024-06-04 10:57 | Outpatient (OUT) | payer MEDICARE, SELFPAY ==
--- OUTSIDE RECORDS SUMMARY | 2024-06-04 11:09 | XMS_ITS | CCD ---
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 Name Role Phone ASHA BLANDON Primary Care Physician AMIRA ., DR ASHA Christopehr Primary Care Unavailable NILL ., DR DEVI Admitting Unavailable NILL ., DR DEVI Attending Unavailable NILL ., DR DEVI Consulting Unavailable DAVIN FRAGA Consulting Unavailable LISANDRA TUTTLE Consulting Unavailable BLANDON ., DR ASHA Christopher Admitting Unavailable BLANDON ., DR ASHA Christopher Attending Unavailable BLANDON ., DR ASHA Christopher Consulting Unavailable BLANDON ., DR ASHA Christopher Primary Care Unavailable BLANDON ., DR ASHA Christopher Admitting Unavailable BLANDON ., DR ASHA Christopher Attending Unavailable BLANDON ., DR ASHA Christopher Consulting Unavailable BLANDON ., DR ASHA Christopher Primary Care Unavailable ASHA BLANDON Primary Care Physician Mary Ellen Hebert Primary Care Physician Mary Ellen Hebert Attending Unavailable Jim BAH Attending Unavailable Jim BAH Attending Unavailable EmileeMary Ellen Attending Unavailable EmileeMary Ellen Admitting Unavailable EmileeMary Ellen Referring Unavailable Letty Ryan Attending Unavaila ble EmileeMary Ellen Attending Unavailable EmileeMary Ellen Attending Unavailable EmileeMary Ellen Attending Unavailable EmileeMary Ellen Attending Unavailable ALASTAL, YASEEN S Admitting Unavailable ALASTAL, YASEEN S Attending Unavailable ALASTAL, YASEEN S Attending Unavailable ALASTAL, YASEEN S Referring Unavailable SHERLY BIGGS Attending Unavailable ALGHOTHANIKAT Attending Unavailable ALGHOTHANIAKT Attending Unavailable ALGHOTHKAT ROQUE Attending Unavailable Allergies Allergy Classification Reported Allergen(s) Allergy Type Date of Onset Reaction(s) Facility Unclassified (1 source) No Known Medication Allergies; 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: [No Known Medication Allergies] Propensity to adverse reactions (disorder) [facility] Repository Medications Current Medications Medication Drug [...] Daily, # 30 tab(s), Refills(s) 11, Pharmacy: [facility] #[id number], 174, cm, 12/04/23 9:07:00 EST, Height/Length Dosing, [...] inh, Inhalation, BID, 1 EA, Refill(s) 11, [facility] #[id number], 172.7, cm, 07/14/23 13:11:00 EDT, Height/Length Dosing, 92, kg, 07/14/23 13:11:00 EDT, Weight Dosing Start Date: 07/14/23 Status: Ordered carvedilol 12.5 mg oral tablet (3 sources) alpha-Adrenergic Gurpreet, beta-Adrenergic Gurpreet Start: 07-25-2024 take 12.5 mg by mouth twice daily Carvedilol Active 12.5 MG PO Twice daily April 25, 2024 12:00am Start: 02-08-2024 take 1 tablet by oma twice daily carvedilol 12.5 mg Tab 12.5 mg = 1 tab(s), Oral, BID, # 180 tab(s), Refills(s) 3, Pharmacy: [facility] #[id number], 174, cm, 01/02/24 10:21:00 EDT, Height/Length Dosing, 93.4, kg, 01/02/24 10:21:00 EDT, Weight Dosing Start Date: 02/08/24 Status: Ordered Start: 10-13-2023 take 1 tablet by [facility] twice daily carvedilol 6.25 mg Tab 6.25 [...] 12:00am Start: 04-01-2024 take 1 capsule by [facility] once daily Nexium 40 mg Cap-EC 40 mg = 1 cap(s), Oral, Daily, # 90 cap(s), Refills(s) 0, Pharmacy: [facility] #[id number], 174, cm, 04/01/24 9:33:00 EDT, Height/Length Dosing, 89, kg, 04/01/24 9:33:00 EDT, Weight Dosing Start Date: 04/01/24 [...] for 30 day(s), 30 tab(s), Refill(s) 0, [facility] #[id number], 172.7, cm, 11/22/22 15:44:00 EST, Height/Length Dosing, [...] Coronary arteriosclerosis; 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: [Atherosclerotic heart disease of [place] coronary artery without angina pectoris] Onset: 3 [...] W/O BL] Onset: 3 Chronic Essential hypertension (8 sources) Hypertensive disorder; 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: [Essential (primary) hypertension] [...] with complications and secondary hypertension (4 sources) Chronic kidney disease due to hypertension; 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: [Hypertensive chronic kidney disease with stage 1 through stage 4 chronic kidney disease, or unspecified chronic kidney disease] Onset: 4 04-25-2024 Chronic Malaise and fatigue (5 sources) Chronic fatigue syndrome 11-03-2022 Chronic Malaise and fatigue (4 sources) Other fatigue; 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: [Fatigue] Onset: 3 07-14-2023 Episodic Noninfectious gastroenteritis (1 source) Noninfective gastroenteritis and colitis, unspecified; 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: [NONINFECTIVE GE AND COLITIS UNS] Onset: 3 Episodic Other aftercare (1 source) [facility]DC (current) use of aspirin; 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: [NURSING HOME CURRENT USE OF ASPIRIN] Onset: 3 Episodic [...] Classification Problem Date Documented Da te Episodic/Chronic Nonspecific chest pain (2 sources) Chest pain, unspecified; 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: [Chest pain, unspecified] Onset: 10-06-2023 Episodic Unclassified (5 sources) Drug therapy finding 11-03-2022 Results Test Name Value Interpretation Reference Range Facil ity Surgical Pathologyon 024 Surgical Pathology Normal [facility] Comment on above: Result Comment: [facility] [address] [place] [address] Surgical Pathology Consultation Patient Name:MAXIMINO CLARKE:1955 (Age: 69)Gender:MTaken:4Reported:4Physician(s):Surinder El MD ( )Copy To: Rec. #:[id number]: #[id number] Final Pathologic Diagnosis Gastric biopsy: Mild chronic gastritis with intestinal metaplasia present. Negative for helicobacter organisms on routine H&E examination Negative for dysplasia or malignancy. Report Electronically Signed Out st05/02/2024Lorena Bowles MD Interpretation performed at [facility], [address] [place], [address], License number: [id number]. Clinical History Pancreatic cyst, abdominal pain. 1. H pylori screen Gross Description Received in formalin, labeled VINCE, gastric biopsy are multiple pink-del angel soft tissue fragments aggregating 1.3 x 0.5 x 0.1 cm. The specimen is filtered and entirely submitted in one cassette. (1, ns, [id number] m7, ) MW mxw/04/30/2024GR Specimen(s) Received Gastric biopsy Fee Codes(s): 1; 82745 36on 04-15-2024 SARS-CoV-2 (COVID-19) RNA NIEVES+probe Ql (Unsp spec) 04/15/24@1000 Patients called stating that Maximino tested positive for COVID today, per [facility] policy he needs to wait 10 days from his positive test to be scheduled. Patient is rescheduled for 04/30/24 arriving at 0945 for a 1145 procedure with a PAT call on 04/23/24 in the am. [facility] 36on 04-09-2024 36 Scheduled EGD/EUS/Pancreatic Cyst/Abd Pain 04/19/24 @1200, [facility], Dr. El, PAT ph: 04/12/24 @1130, #[id number], Ref Dr. Ryan in Media 04/03/24. Normal [facility] Telephoneon 04-09-2024 Telephone [id number] Maximino Clarke E 1955 M Date Provider Department Center 04/09/2024 [id number] LIRIANO [facility] Family History Problem Relation Age of Onset Hypertension Mother Cancer Mother Family Status - Relation Status Age at Mother [facility] Gastroenterology Office/Clin ic Noteon 04-01-2024 Gastroenterology Office/Clinic [...] Abdomen: Soft, NTND Procedure Colonoscopy 12/14/22 w/Dr. Bustillo: POSTOPERATIVE DIAGNOSIS: Prominent rectal veins, mild sigmoid [...] vax 01/05/2021 R (more content not included)... Normal [facility] Comment on above: Result Comment: Elec tronically Signed By: Connor DHALIWAL, Letty Argueta\.br\Date and Time Signed: 04/01/24 10:29 EDT\.br\Electronically Co-Signed By: Liliana Garcia MA\.br\Date and Time Co-Signed: 04/01/24 10:24 EDT Physician Referralon 024 Physician Referral [id number]# 1.00TIFF [facility] Physician Referralon 024 Physician Referral [id number]# 1.00TIFF [facility] RAD - CT Reporton 01-26-2024 RAD - CT Report [id number]#[address] [facility] Physician Orderon 01-03-2024 Physician Order [id number]#[address] [facility] Ambulatory Visit Summaryon 0 01-02-2024 Ambulatory Visit Summary VINCEMAXIMINO :1955 Visit Date:01/02/2024 Ambulatory Visit Instructions Your [...] DHALIWAL, Jim More Where: [facility] Family Medicine Office/Clini c Noteon 01-02-2024 Family [...] (COVID-19) mRNA BNT-162b2 vax 12/14/2020 Recorded Normal [facility] Comment on above: Result Comment: Elec tronically Signed By: Mary Ellen Dela Cruz\.br\Date and Time Signed: 01/02/24 11:42 EDT Physician Orderon 01-02-2024 Physician Order [id number]#1 .00TIFF Normal [facility] RAD - CT Reporton 01-02-2024 RAD - CT Report [id number]#1 .00TIFF Normal [facility] Ambulatory Visit Summaryon 0 12-28-2023 Ambulatory [...] DHALIWAL, Jim More Where: [facility] Consenton 12-28-2023 Consent [id number]#[address] [facility] Family Medicine Office/Clini c Noteon 12-28-2023 [...] day(s), # 14 tab(s), Refills(s) 0, Pharmacy: [facility] #[id number], 174, cm, 12/28/23 8:31:00 EDT, Height/Length Dosing, 93.3, kg, 12/28/23 8:31:00 EDT, Weight Dosing 4. Non-smoker (Z78.9: Other specified health status) continue not smoking Ordered: amoxicillin-clavulana te, = 1 tab(s), Oral, q12hr, X 7 day(s), # 14 tab(s), Refills(s) 0, Pharmacy: [facility] #[id number], 174, cm, 12/28/23 8:31:00 EDT, Height/Length Dosing, 93.3, kg, 12/28/23 8:31:00 EDT, Weight Dosing 5. Hypertension (I10: Essential (primary) hypertension) BP continues to run high. vp genetic started him on carvedilol we will increase that dose today. he does not have any follow up appointments scheduled with cardiology and they are leaving on a cruise next week. RTC 4 weeks for BP check. Orders: carvedilol, 12.5 mg = 1 tab(s), Oral, BID, # 60 tab(s), Refills(s) 0, Pharmacy: [facility] #[id number], 174, cm, 12/28/23 8:31:00 EDT, Height/Length Dosing, [...] Recorded SARS (more content not included)... Normal [facility] Comment on above: Result Comment: Elec tronically Signed By: Mary Ellen Dela Cruz\.br\Date and Time Signed: 12/28/23 08:48 EDT Office Visiton 12-08-2023 Follow-up visit [id number] Maximino Clarke 1955 M Date Provider Department Center 12/08/2023 Glen8-KAT VASQUEZ CARD [facility] Family History Problem Relation Age of Onset Hypertension Mother Cancer Mother Family Status - Relation Status Age at Mother Level of Service:83810 OK OFFICE/OUTPATIENT ESTABLISHED MOD MDM 30 MIN Reason for Visit and Comments: Follow-up [798584] Normal [facility] Ambulatory Visit Summaryon 0 12-04-2023 Ambulatory Visit [...] DHALIWAL, Jim More Where: [facility] Patient Educationon 12-04-19 Patient Education [...] Follow these instructions at home: ? Take ywwy-lcb-tvgetfn and prescription medicines only as told by [...] the medicine (more content not included)... Normal [facility] Urology Office/Clinic Noteon 12-04-2023 Urology Office/Clinic [...] When Contact Information SANGEETA DHALIWAL, Jim More, FABIOLA In 1 year [facility] [address] [place] [address] [phone] Additional Instructions: with PSA Patient Education Benign Prostatic Hyperplasia IIris, personally scribed for Dr. Bah on 12/04/2023 09:44:24. . Documentation recorded by the breeibarleen christopher, accurately reflects the services(s) I performed and [...] mcg/inh i (more content not included)... Normal [facility] Comment on above: Result Comment: Elec tronically Signed By: Jim BAH MD\.br\Date and Time Signed: 12/04/23 09:47 EST\.br\Electronically Co-Signed By: Iris Robledo.br\Date and Time Co-Signed: 12/04/23 09:45 EST Ambulatory Visit Summaryon 0 10-13-2023 Ambulatory Visit Summary JADON CLARKEBRUNA Christopher :1955 Visit Date:10/13/2023 Ambulatory Visit Instructions Your [...] DHALIWAL, Jim More Where: [facility] Family Medicine Office/Clini c Noteon 10-13-2023 Family Medicine Office/Clinic Note HPI Staff Maximino is a 68 year old male presenting for 3 month follow up SOFIA 07/14/23 pt establish care and had been without blood pressure medication for 2 months b/p: 162/112 Pt seen Production Mechanic last week in [facility]. changed blood pressure medication. Patient is here [...] tab(s), Oral, Daily, 30 tab(s), Refill(s) 5, [facility] #[id number], 172.7, cm, 07/14/23 13:11:00 EDT, Height/Length Dosing, 92, kg, 07/14/23 13:11:00 EDT, Weight Dosing pravastatin, 20 mg, Oral, Daily, # 90 tab(s), Refills(s) 3, Pharmacy: [facility] #[id number], 172.7, cm, 07/14/23 13:11:00 EDT, Height/Length Dosing, [...] (COVID-19) mRNA BNT-162b2 vax 12/14/2020 Recorded Normal [facility] Comment on above: Result Comment: Elec tronically Signed By: Mary Ellen Dela Cruz\.br\Date and Time Signed: 10/13/23 13:23 EST Office Visiton 10-06-2023 Follow-up visit [id number] Maximino Clarke 1955 M Date Provider Department Center 10/06/2023 [id number] VASQUEZ Family History Problem Relation Age of Onset Hypertension Mother Cancer Mother Family Status - Relation Status Age at Mother Level of Service:62783 OK OFFICE/OUTPATIENT NEW MODERATE MDM [address] [facility] Retail - Clinical Noteon Retail - Clinical Note [id number]#1 .00TIFF Normal [facility] Consultation Noteon 09-08-20 Consultation Note [id number]#1 .00TIFF Normal [facility] Ambulatory Visit Summaryon 1 10-30-2022 Ambulatory [...] Mary Ellen Dela Cruz Where: [facility] Normal [address] [place] [address]- \.br\ Medications\.br\ What How Much When Why Instructions\.br\ New azithromycin (azithromycin 250 mg Tab) 1 Packets By Mouth As Directed Right otitis media Cough Sore throat Headache BMI 30.0-30.9,adult Non-smoker Duration: 5 Days as directed on package labeling Pickup at [facility] #[id number]\.br\ New methylPREDNISolone (Medrol 4 mg Tab) 1 Packets By Mouth As Directed Right otitis media Cough Sore throat Headache BMI 30.0-30.9,adult Non-smoker Duration: 6 Days as directed on package labeling Pickup at [facility] #12031\.br\ Unchanged albuterol (albuterol 0.083% Inh Anne 3 [...] Milligram By Mouth Every day\.br\ Pharmacy Information\.br\ [facility] #[id number]: [address] [place], [place] [id number] [phone]\.br\ Allergies\.br\ No Known Allergies\.br\ No Known Medication [...] for choosing us for your care.\.br\ \.br\ [facility] Ambulatory Visit Summary MAXIMINO CLARKE Amy [...] Mary Ellen Dela Cruz Where: [facility] Normal [address] [place] [address]- \.br\ Medications\.br\ What How Much When Why [...] for choosing us for your care.\.br\ \.br\ [facility] Medicine Office/Clini c Noteon 08-30-2023 Family Medicine [...] day(s), # 6 tab(s), Refills(s) 0, Pharmacy: [facility] #[id number], 172.7, cm, 08/30/23 16:58:00 EST, Height/Length Dosing, 92.2, kg, 08/30/23 16:58:00 EST, Weight Dosing methylPREDNISolone, = 1 packet(s), Oral, As Directed, as directed on package labeling, X 6 day(s), # 21 tab(s), Refills(s) 0, Pharmacy: [facility] #[id number], 172.7, cm, 08/30/23 16:58:00 EST, Height/Length Dosing, 92.2, kg, 08/30/23 16:58:00 EST, Weight Dosing 2. Cough (R05.9: Cough, unspecified) lung sound are tight pt coughing. pt has follow up with Dr. Barlow had CT of chest done recently Ordered: azithromycin, = 1 packet(s), Oral, As Directed, as directed on package labeling, X 5 day(s), # 6 tab(s), Refills(s) 0, Pharmacy: [facility] #[id number], 172.7, cm, 08/30/23 16:58:00 EST, Height/Length Dosing, 92.2, kg, 08/30/23 16:58:00 EST, Weight Dosing methylPREDNISolone, = 1 packet(s), Oral, As Directed, as directed on package labeling, X 6 day(s), # 21 tab(s), Refills(s) 0, Pharmacy: [facility] #[id number], 172.7, cm, 08/30/23 16:58:00 EST, Height/Length Dosing, 92.2, kg, 08/30/23 16:58:00 EST, Weight Dosing 3. Sore throat (J02.9: Acute pharyngitis, unspecified) thrat is red no exudate Ordered: azithromycin, = 1 packet(s), Oral, As Directed, as directed on package labeling, X 5 day(s), # 6 tab(s), Refills(s) 0, Pharmacy: [facility] #70556, 172.7, cm, 08/30/23 16:58:00 EST, Height/Length Dosing, 92.2, kg, 08/30/23 16:58:00 EST, Weight Dosing methylPREDNISolone, = 1 packet(s), Oral, As Directed, as directed on package labeling, X 6 day(s), # 21 tab(s), Refills(s) 0, Pharmacy: [facility] #06053, 172.7, cm, 08/30/23 16:58:00 EST, Height/Length Dosing, 92.2, kg, 08/30/23 16:58:00 EST, Weight Dosing 4. Headache (R51.9: Headache, unspecified) sinus tenderness Ordered: azithromycin, = 1 packet(s), Oral, As Directed, as directed on package labeling, X 5 day(s), # 6 tab(s), Refills(s) 0, Pharmacy: [facility] #[id number], 172.7, cm, 08/30/23 16:58:00 EST, Height/Length Dosing, 92.2, kg, 08/30/23 16:58:00 EST, Weight Dosing methylPREDNISolone, = 1 packet(s), Oral, As Directed, as directed on package labeling, X 6 day(s), # 21 tab(s), Refills(s) 0, Pharmacy: [facility] #[id number], 172.7, cm, 08/30/23 16:58:00 EST, Height/Length Dosing, 92.2, kg, 08/30/23 16:58:00 EST, Weight Dosing 5. BMI 30.0-30.9,adult (Z68.30: Body mass index [BMI] 30.0-30.9, adult) bmi education complete Ordered: azithromycin, = 1 packet(s), Oral, As Directed, as directed on package labeling, X 5 day(s), # 6 tab(s), Refills(s) 0, Pharmacy: [facility] #91920, 172.7, cm, 08/30/23 16:58:00 EST, Height/Length Dosing, 92.2, kg, 08/30/23 16:58:00 EST, Weight Dosing methylPREDNISolone, = 1 packet(s), Oral, As Directed, as directed on package labeling, X 6 day(s), # 21 tab(s), Refills(s) 0, Pharmacy: [facility] #[id number], 172.7, cm, 08/30/23 16:58:00 EST, Height/Length Dosing, 92.2, kg, 08/30/23 16:58:00 EST, Weight Dosing 6. Non-smoker (Z78.9: Other specified health status) continue not smoking Ordered (more content not included)... [facility] Comment on above: Result Comment: Elec tronically Signed By: Mary Ellen Dela Cruz\.br\Date and Time Signed: 08/30/23 17:11 EST Consultation Noteon 08-03-20 23 Consultation Note [id number]#[address] [facility] Physician Referralon 023 Physician Referral [id number]# 1.00TIFF [facility] Ambulatory Visit Summaryon 1 Ambulatory Visit Summary MAXIMINO CLARKE Amy :1955 Visit Date:07/14/2023 Ambulatory Visit Instructions Your [...] EST With: Mary Ellen Dela Cruz Where: [facility] Jazmin Normal [facility] Auto Diffon 07-14-2023 Basophils/100 WBC (Bld) 0.7 % Normal 0.0-2.0 [facility] Comment on above: Order Comment: Order Added by Discern Expert. Performed By: #### 2 820962, 3653597, 8916025, 1495856, 71036132, 5500662, 04746489 ####[facility] [address] [place] [address] Basophils/Leukocyte s Auto (Bld) [Pure # fraction] 0.0 E9/L Normal 0.0-0.2 [facility] Comment on above: Order Comment: Order Added by Discern Expert. Performed By: #### 2 628305, 6078770, 0629377, 5600048, 92027884, 3404676, 13108555 ####[facility] [address] [place] [address] Eosinophils/100 WBC (Bld) 1.3 % Normal 0.0-8.0 [facility] Comment on above: Order Comment: Order Added by Discern Expert. Performed By: #### 2 487886, 9768819, 9736003, 3776878, 26056700, 3608079, 26706803 ####[facility] [address] [place] [address] Eosinophils/Leukocy funmilayo Auto (Bld) [Pure # fraction] 0.1 E9/L Normal 0.0-0.5 [facility] Comment on above: Order Comment: Order Added by Discern Expert. Performed By: #### 2 964123, 7793628, 1396862, 8984239, 90555660, 8986719, 76761047 ####[address] [place] [address] Lymphocytes/100 WBC (Bld) 20.2 % Normal 14.0-50.0 [facility] Comment on above: Order Comment: Order Added by Discern Expert. Performed By: #### 2 382369, 2071001, 9246131, 2101711, 87535989, 5262848, 17972747 ####[address] [place] [address] Lymphocytes/Leukocy funmilayo Auto (Bld) [Pure # fraction] 1.4 E9/L Normal 1.0-4.0 [facility] Comment on above: Order Comment: Order Added by Discern Expert. Performed By: #### 2 851707, 6795344, 9275110, 5012439, 85965211, 7356325, 61354640 ####[address] [address] Monocytes/100 WBC (Bld) 12.3 % Normal 4.0-14.0 [facility] Comment on above: Order Comment: Order Added by Discern Expert. Performed By: #### 2 296395, 8005553, 4311697, 1053138, 87773241, 0287027, 22270446 ####[address] [place] [address] Monocytes/Leukocyte s Auto (Bld) [Pure # fraction] 0.8 E9/L Normal 0.2-1.0 [facility] Comment on above: Order Comment: Order Added by Discern Expert. Performed By: #### 2 113855, 1537455, 5980502, 0208905, 90093373, 5599893, 72618233 ####[address] [place] [address] Neutrophils/100 WBC (Bld) 65.5 % Normal 36.0-75.0 [facility] Comment on above: Order Comment: Order Added by Discern Expert. Performed By: #### 2 803488, 7981478, 8148758, 4616350, 17157153, 7465099, 89844734 ####[facility] [address] [place] [address] Neutrophils/Leukocy funmilayo Auto (Bld) [Pure # fraction] 4.5 E9/L Normal 2.0-7.5 [facility] Comment on above: Order Comment: Order Added by Discern Expert. Performed By: #### 2 535581, 0912252, 1234436, 9140988, 55159936, 3863892, 67927327 ####[address] [place] [address] CBC w/ Auto Diffon Erythrocyte distribution width (RBC) [Ratio] 13.9 % Normal 10.9-14.2 [facility] Comment on above: Performed By: #### 2 234712, 8044181, 3938313, 1516263, 03643911, 4534817, 81265041 ####[address] [address] Hematocrit (Bld) [Volume fraction] 47.7 % Normal 37.7-49.0 [facility] Comment on above: Performed By: #### 2 065668, 5645507, 2603553, 9839764, 46899504, 3294948, 64506380 ####[address] [place] [address] Hemoglobin (Bld) [Mass/Vol] 15.8 g/dL Normal 13.5-17.5 [facility] Comment on above: Performed By: #### 2 826075, 9551519, 6639414, 4384881, 63084061, 3472381, 69090724 ####[address] [place] [address] MCH (RBC) [Entitic mass] 30.2 pg Normal 27.0-34.0 [facility] Comment on above: Performed By: #### 2 200317, 6400364, 9229178, 4487227, 96545900, 3169505, 37338814 ####[address] [place] [address] MCHC (RBC) [Mass/Vol] 33.2 g/dL Normal 31.4-36.0 [facility] Comment on above: Performed By: #### 2 135846, 4242154, 4171040, 8696173, 46183453, 7560436, 83468079 ####[place] [address] MCV (RBC) [Entitic vol] 90.9 fL Normal 80.0-100.0 [facility] Comment on above: Performed By: #### 2 497122, 4029834, 2474278, 6997287, 31049598, 8043440, 53970298 ####[place] [address] Platelet mean volume (Bld) [Entitic vol] 11.2 fL High 6.4-10.8 [facility] Comment on above: Performed By: #### 2 528218, 0008757, 4517257, 1966678, 85253882, 4962324, 42185524 ####[place] [address] Platelets (Bld) [#/Vol] 105.0 E9/L Low 150.0-500.0 [facility] Comment on above: Performed By: #### 2 148990, 3248234, 9099233, 4642700, 25268266, 1417469, 12248270 ####[place] [address] RBC (Bld) [#/Vol] 5.2 E12/L Normal 4.3-5.9 [facility] Comment on above: Performed By: #### 2 885336, 9927218, 2808772, 2200818, 22311370, 5736809, 55242687 ####[address] [address] WBC corrected for nucl RBC Auto (Bld) [#/Vol] 6.8 E9/L Normal 4.0-11.0 [facility] Comment on above: Performed By: #### 2 736451, 2304455, 7591611, 8237293, 70882563, 4159976, 82273014 ####[facility] [address] [place] [address] CHEMISTRYOrdered By: SYSTEM SYSTEM on 07-14-2023 Albumin [...] rate/Area] 51 mL/min/1.73 m2 Low >=59mL/min/1.73 m2 [facility] Comment on above: Interpretive Data: [...] for this result was chemiluminescence using [employer] PSA reagent. Protein [Mass/Vol] 7.8 [...] 07-14-2023 Albumin [Mass/Vol] 4.2 g/dL Normal 3.3-5.0 [facility] Comment on above: Performed By: #### 2 302174, 2917222, 2057509, 3613118, 01823675, 5535483, 44903719 ####[facility] [address] [place] [address] Albumin/Globulin (S) [Mass conc ratio] 1.2 Normal 1.1-2.2 [facility] Comment on above: Performed By: #### 2 389031, 8533642, 2809774, 7258716, 56292480, 4275447, 85655323 ####[facility] [address] [place] [address] ALP [Catalytic activity/Vol] 75 Int._Unit/L Normal 21-98 [facility] Comment on above: Performed By: #### 2 133793, 6372102, 3840128, 2017614, 51261813, 4185706, 20449563 ####[facility] [address] [place] [address] ALT No additional P-5'-P [Catalytic activity/Vol] 28 Int._Unit/L Normal 6-46 [facility] Comment on above: Performed By: #### 2 098179, 5194740, 8295508, 5554064, 97470668, 4577935, 76641586 ####[address] [place] [address] Anion gap [Moles/Vol] 11 mmol/L Normal 6-16 [facility] Comment on above: Performed By: #### 2 624795, 6683474, 6958516, 9368321, 58089857, 0982412, 82873520 ####[address] [place] [address] AST [Catalytic activity/Vol] 30 Int._Unit/L Normal 5-43 [facility] Comment on above: Performed By: #### 2 654642, 1711541, 5803043, 8768790, 82498762, 1328851, 84612752 ####[facility] [address] [place] [address] Bilirubin [Mass/Vol] 0.4 mg/dL Normal 0.0-1.1 [facility] Comment on above: Performed By: #### 2 934860, 7273432, 8388716, 5547275, 31727570, 1529443, 67326069 ####[facility] [address] [place] [address] Calcium [Mass/Vol] 10.2 mg/dL Normal 8.9-11.1 [facility] Comment on above: Performed By: #### 2 363715, 0065084, 2667336, 7808760, 47841137, 3156073, 53458064 ####[facility] [address] [place] [address] Chloride [Moles/Vol] 113 mmol/L High 101-111 [facility] Comment on above: Performed By: #### 2 090477, 9266241, 9462790, 1893553, 52058657, 2440283, 67108827 ####[facility] [address] [place] [address] CO2 [Moles/Vol] 28 mmol/L Normal 21-31 [facility] Comment on above: Performed By: #### 2 975564, 4803766, 1109856, 8150350, 23208061, 7743627, 86617053 ####[facility] [address] [place] [address] Creatinine [Mass/Vol] 1.5 mg/dL High 0.5-1.3 [facility] Comment on above: Performed By: #### 2 897556, 6373018, 3179604, 7793138, 05256263, 1374988, 32246674 ####[facility] [address] [place] [address] Globulin (S) [Mass/Vol] 3.6 g/dL Normal 1.4-4.0 [facility] Comment on above: Performed By: #### 2 208740, 8992828, 6432809, 4785761, 19840488, 0528320, 84542949 ####[facility] [address] [place] [address] Glucose [Mass/Vol] 96 mg/dL Normal 55-199 [facility] Comment on above: Result Comment: If t his glucose result represents a fasting glucose, interpretation should refer to the following reference range: 55-99 mg/dL Performed By: #### 2 035566, 5155563, 0574110, 1858212, 55974150, 2823972, 53505467 ####[facility] [address] [place] [address] Potassium [Moles/Vol] 3.6 mmol/L Normal 3.5-5.3 [facility] Comment on above: Performed By: #### 2 397308, 1694552, 7042688, 3677668, 29675870, 5868720, 22440515 ####[facility] [address] [place] [address] Protein [Mass/Vol] 7.8 g/dL Normal 6.0-7.8 [facility] Comment on above: Performed By: #### 2 906346, 8621053, 9116099, 1811328, 56225145, 6063392, 13270858 ####[facility] [address] [place] [address] Sodium [Moles/Vol] 148 mmol/L High 135-145 [facility] Comment on above: Performed By: #### 2 254604, 3315901, 9629927, 0697390, 71238822, 6247426, 48280054 ####[facility] [address] [place] [address] Urea nitrogen [Mass/Vol] 14 mg/dL Normal 5-21 [facility] Comment on above: Performed By: #### 2 805389, 2602410, 2655780, 1700680, 37756782, 7617180, 26168133 ####[facility] [address] [place] [address] Urea nitrogen/Creatinine [Mass ratio] 9 No Units Low 10-20 [facility] Comment on above: Performed By: #### 2 136735, 0622354, 2834891, 2233604, 31059755, 3545679, 49878449 ####[facility] [address] [place] [address] Family Medicine Office/Clini c Noteon 07-14-2023 Family Medicine Office/Clinic Note HPI Staff Maximino is a 68 year old male presenting to establish care Establish Care: History: Any previous diagnosis: BPH, HLD, HTN, Sleep apnea, Emphysema, COPD, interstitial pulmonary fibrosis, legionnaire's disease 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 [place] When was your last doctors visit: Last provider: Dr Blandon Any recent labs:10/11/22 TSH 0.231, wellness labs 01/2022 Health Maintenance UTD: Colonoscopy: 12/28/22 due in 10 years PSA: Acute: Current issues/complaints: SOB: getting more short of breath quicker, 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 Chronic obstructive pulmonary disease (J44.9: Chronic obstructive pulmonary disease, unspecified) pt has had COPD for 22 years. has not been to sole molding machine operator in over 10 years. was seeing someone in [place]. Will send referral to Dr. Barlow. will order steroid inhaler today Ordered: budesonide, 1 inh, Inhalation, BID, 1 EA, Refill(s) 11, [facility] #[id number], 172.7, cm, 07/14/23 13:11:00 EDT, Height/Length Dosing, 92, kg, 07/14/23 13:11:00 EDT, Weight Dosing CBC w/ Auto Diff Comprehensive Metabolic Panel [facility] External Ambulatory Referral Lab Specimen Collect [id number] Lipid Panel PSA Screen, Total Thyroid Stimulating Hormone 3. Fatigue (R53.83: Other fatigue) will order labs. BP is elevated Ordered: budesonide, 1 inh, Inhalation, BID, 1 EA, Refill(s) 11, [facility] #35631, 172.7, cm, 07/14/23 13:11:00 EDT, Height/Length Dosing, 92, kg, 07/14/23 13:11:00 EDT, Weight Dosing CBC w/ Auto Diff Comprehensive Metabolic Panel Lab Specimen Collect [id number] Lipid Panel PSA Screen, Total Thyroid Stimulating Hormone 4. Hypertension (I10: Essential (primary) hypertension) pt has been out of BP meds for 2 months. just started taking it again 2 days ago Ordered: budesonide, 1 inh, Inhalation, BID, 1 EA, Refill(s) 11, [facility] #69286, 172.7, cm, 07/14/23 13:11:00 EDT, Height/Length Dosing, 92, kg, 07/14/23 13:11:00 EDT, Weight Dosing CBC w/ Auto Diff Comprehensive Metabolic Panel Lab Specimen Collect [id number] Lipid Panel PSA Screen, Total Thyroid Stimulating Hormone 5. Prostate cancer screening (Z12.5: Encounter for screening for malignant neoplasm of prostate) psa ordered today Ordered: budesonide, 1 inh, Inhalation, BID, 1 EA, Refill(s) 11, [facility] #[id number], 172.7, cm, 07/14/23 13:11:00 EDT, Height/Length Dosing, 92, kg, 07/14/23 13:11:00 EDT, Weight Dosing CBC w/ Auto Diff Comprehensive Metabolic Panel Lab Specimen Collect [id number] Lipid Panel PSA Screen, Total Thyroid Stimulating Hormone 6. BMI 31.0-31.9,adult (Z68.31: Body mass index [BMI] 31.0-31.9, adult) BMI education complete Ordered: budesonide, 1 inh, Inhalation, BID, 1 EA, Refill(s) 11, [facility] #[id number], 172.7, cm, 07/14/23 13:11:00 EDT, Height/Length Dosing, 92, kg, 07/14/23 13:11:00 EDT, Weight Dosing CBC w/ Auto Diff Comprehensive Metabolic Panel Lipid Panel PSA Screen, Total Thyroid Stimulating Hormone 7. Non-smoker (Z78.9: Other specified health status) continue not smoking Ordered: budesonide, 1 inh, Inhalation, BID, 1 EA, Refill(s) 11, [facility] #32856, 172.7, cm, 07/14/23 13:11:00 EDT, Height/Length Dosing, 92, kg, 07/14/23 13:11:00 EDT, Weight Dosing CBC w/ Auto Diff Comprehensive (more content not included)... Normal [facility] Comment on above: Result Comment: Elec tronically Signed By: Mary Ellen Dela Cruz\.br\Date and Time Signed: 07/14/23 14:54 EDT HEMATOLOGYOrdered By: SYSTEM SYSTEM on 07-14-2023 Basophils/100 WBC (Bld) 0.7 % Normal 0.0 - 2.0 % [facility] HemeAutoSS Basophils/Leukocyte s Auto (Bld) [Pure # [...] 105.0 E9/L Low 150.0 - 500.0 E9/L [facility] HemeAutoSS RBC (Bld) [#/Vol] 5.2 E12/L Normal 4.3 - 5.9 E12/L [facility] HemeAutoSS WBC corrected for nucl RBC Auto (Bld) [#/Vol] 6.8 E9/L Normal 4.0 - 11.0 E9/L [facility] HemeAutoSS Lipid Panelon 07-14-2023 Cholesterol [Mass/Vol] 191 mg/dL Normal 120-200 [facility] Comment on above: Performed By: #### 2 996723, 7512594, 9409751, 3462458, 50157608, 0906372, 23623333 ####[facility] [address] [place] [address] Cholesterol in HDL [Mass/Vol] 29 mg/dL Invalid Interpretation Code [facility] Comment on above: Result Comment: HDL > or equal to 60 mg/dL: Low cardiovascular risk HDL < 40 mg/dL : High cardiovascular risk Performed By: #### 2 120230, 7372096, 9155770, 0996348, 83108214, 5047478, 23147435 ####[facility] [address] [place] [address] Cholesterol in LDL [Mass/Vol] 106 mg/dL Normal <=129 [facility] Comment on above: Performed By: #### 2 665301, 4819180, 0777096, 3474596, 11356209, 4596338, 84231295 ####[facility] [address] [place] [address] Cholesterol in VLDL [Mass/Vol] 46 mg/dL High 7-40 [facility] Comment on above: Performed By: #### 2 318783, 2831100, 6176011, 9009053, 01290320, 1488691, 50561055 ####[facility] [address] [place] [address] Triglyceride [Mass/Vol] 230 mg/dL High <=149 [facility] Comment on above: Performed By: #### 2 208266, 1379838, 0588937, 2489885, 58937190, 7800745, 83525011 ####[facility] [address] [place] [address] PSA Screen, Totalon 07-14-20 23 Prostate specific Ag [Mass/Vol] 1.4 ng/mL Normal 0.1-3.5 [facility] Comment on above: Result Comment: The concentration of PSA determined by different manufacturers can vary due to differences in assay methods and reagent specificity. Values obtained from different assay methods cannot be used interchangeably. The methodology used for this result was chemiluminescence using [employer]'s [employer] Hybritech PSA reagent. Performed By: #### 2 172240, 7494573, 6751893, 2026611, 26641312, 9420048, 33265001 ####[facility] [address] [place] [address] TSHon 07-14-2023 TSH Qn 0.60 m[IU]/L Normal 0.34-5.60 [facility] Comment on above: Performed By: #### 2 883507, 5799849, 5594612, 4662021, 22072086, 7363871, 48717201 ####[address] [place] [address] eGFRon 07-14-2023 GFR/1.73 sq M.predicted among non-blacks MDRD (S/P/Bld) [Vol rate/Area] 51 mL/min/1.73 m2 Low >=59 [facility] Comment on above: Order Comment: Order added by Discern Expert. Result Comment: Feeder Loader elida kidney disease could be indicated at eGFR's of less than 60 mL/min/1.73m2. Kidney failure is indicated at less than 15 mL/min/1.73m2. Performed By: #### 2 727760, 2795794, 9648461, 7362089, 76827673, 0720377, 49747276 ####[facility] [address] [place] [address] CBC AUTO DIFFon 10-11-2022 BASO # 0.0 103/ul Normal 0.0-0.1 [facility] Comment on above: Performed By: #### C BC #### [facility] [address] [address] [address] Anup Paez Basophils/100 WBC (Bld) 0.4 % Normal 0.2-2.0 [facility] Comment on above: Performed By: #### C BC #### [facility] [address] [address] [address] Anup Paez EO # 0.0 103/ul Normal 0.0-0.7 [facility] Comment on above: Performed By: #### C BC #### [facility] [address] [address] [address] Anup Paez Eosinophils/100 WBC (Bld) 0.1 % Critically low 0.9-7.0 [facility] Comment on above: Performed By: #### C BC #### [facility] [address] [place] [address] Dr. Anup Paez Erythrocyte distribution width (RBC) [Ratio] 13.2 % Normal 11.0-15.0 [facility] Comment on above: Performed By: #### C BC #### [facility] [address] [place] [address] Dr. Anup Paez Hematocrit (Bld) [Volume fraction] 43.2 % Normal 42.0-54.0 [facility] Comment on above: Performed By: #### C BC #### [facility] [address] [place] [address] Dr. Anup Paez Hemoglobin (Bld) [Mass/Vol] 14.7 g/dL Normal 14.0-18.0 [facility] Comment on above: Performed By: #### C BC #### [facility] [address] [place] [address] Dr. Anup Paez IG # 0.03 10e3/ul Normal 0.00-0.03 [facility] Comment on above: Performed By: #### C BC #### [facility] [address] [place] [address] Dr. Anup Paez IG % 0.4 % Normal 0.0-0.5 [facility] Comment on above: Performed By: #### C BC #### [facility] [address] [place] [address] Dr. Anup Paez LYMPH # 1.2 103/ul Normal 1.2-3.8 [facility] Comment on above: Performed By: #### C BC #### [facility] [address] [place] [address] Dr. Anup Paez Lymphocytes/100 WBC (Bld) 14.8 % Critically low 20.5-60.0 [facility] Comment on above: Performed By: #### C BC #### [facility] [address] [place] [address] Dr. Anup Paez MANUAL DIFF REQ NO Normal [facility] Comment on above: Performed By: #### C BC #### [facility] [address] [place] [address] Dr. Anup Paez MCH (RBC) [Entitic mass] 30.3 pg Normal 25.9-34.0 [facility] Comment on above: Performed By: #### C BC #### [facility] [address] [place] [address] Dr. Anup Paez MCHC (RBC) [Mass/Vol] 34.0 g/dL Normal 29.9-35.2 [facility] Comment on above: Performed By: #### C BC #### [facility] [address] [place] [address] Dr. Anup Paez MCV (RBC) [Entitic vol] 89.1 fL Normal 80.0-94.0 [facility] Comment on above: Performed By: #### C BC #### [facility] [address] [place] [address] Dr. Anup Paez MONO # 0.5 103/ul Normal 0.3-0.8 [facility] Comment on above: Performed By: #### C BC #### [facility] [address] [place] [address] Dr. Anup Paez Monocytes/100 WBC (Bld) 5.5 % Normal 1.7-12.0 [facility] Comment on above: Performed By: #### C BC #### [facility] [address] [place] [address] Dr. Anup Paez NEUT # 6.6 103/ul Critically high 1.4-6.5 [facility] Comment on above: Performed By: #### C BC #### [facility] [address] [place] [address] Dr. Anup Paez Neutrophils/100 WBC (Bld) 78.8 % Critically high 43.0-75.0 [facility] Comment on above: Performed By: #### C BC #### [facility] [address] [place] [address] Dr. Anup Paez Platelet mean volume (Bld) [Entitic vol] 11.9 fL Normal 9.5-13.5 [facility] Comment on above: Performed By: #### C BC #### [facility] [address] [place] [address] Dr. Anup Paez PLT 140 103/ul Critically low 150-450 [facility] Comment on above: Performed By: #### C BC #### [facility] [address] [place] [address] Dr. Anup Paez RBC 4.85 106/ul Normal 4.70-6.10 [facility] Comment on above: Performed By: #### C BC #### [facility] [address] [place] [address] Dr. Anup Paez WBC 8.3 103/ul Normal 4.0-11.0 [facility] Comment on above: Performed By: #### C BC #### [facility] [address] [place] [address] Dr. Anup Paez FREE T3on 10-11-2022 FREE T3 2.36 pg/mlL Normal 2.18-3.98 [facility] Comment on above: Performed By: #### F T3 #### [facility] [address] [place] [address] Dr. Anup Paez FREE T4on 10-11-2022 Free T4 [Mass/Vol] 0.97 ng/dL Normal 0.76-1.46 [facility] Comment on above: Performed By: #### F T4 #### [facility] [address] [place] [address] Dr. Anup Paez TSHon 10-11-2022 TSH 0.231 uIU/mL Critically low 0.358-3.740 [facility] Comment on above: Performed By: #### T SH #### [facility] [address] [place] [address] Dr. Anup Paez CBC AUTO DIFFon 02-19-2022 BASO # 0.1 103/ul Normal 0.0-0.1 [facility] Comment on above: Performed By: #### C BC #### [facility] [address] [place] [address] Dr. Anup Paez Basophils/100 WBC (Bld) 1.1 % Normal 0.2-2.0 [facility] Comment on above: Performed By: #### C BC #### [facility] [address] [place] [address] Dr. Anup Paez EO # 0.2 103/ul Normal 0.0-0.7 [facility] Comment on above: Performed By: #### C BC #### [facility] [address] [place] [address] Dr. Anup Paez Eosinophils/100 WBC (Bld) 4.4 % Normal 0.9-7.0 [facility] Comment on above: Performed By: #### C BC #### [facility] [address] [place] [address] Dr. Anup Paez Erythrocyte distribution width (RBC) [Ratio] 12.9 % Normal 11.0-15.0 [facility] Comment on above: Performed By: #### C BC #### [facility] [address] [place] [address] Dr. Anup Paez Hematocrit (Bld) [Volume fraction] 44.4 % Normal 42.0-54.0 [facility] Comment on above: Performed By: #### C BC #### [facility] [address] [place] [address] Dr. Anup Paez Hemoglobin (Bld) [Mass/Vol] 14.4 g/dL Normal 14.0-18.0 [facility] Comment on above: Performed By: #### C BC #### [facility] [address] [place] [address] Dr. Anup Paez IG # 0.01 10e3/ul Normal 0.00-0.03 [facility] Comment on above: Performed By: #### C BC #### [facility] [address] [place] [address] Dr. Anup Paez IG % 0.2 % Normal 0.0-0.5 [facility] Comment on above: Performed By: #### C BC #### [facility] [address] [place] [address] Dr. Anup Paez LYMPH # 1.6 103/ul Normal 1.2-3.8 [facility] Comment on above: Performed By: #### C BC #### [facility] [address] [place] [address] Dr. Anup Paez Lymphocytes/100 WBC (Bld) 35.8 % Normal 20.5-60.0 [facility] Comment on above: Performed By: #### C BC #### [facility] [address] [place] [address] Dr. Anup Paez MANUAL DIFF REQ NO Normal [facility] Comment on above: Performed By: #### C BC #### [facility] [address] [place] [address] Dr. Anup Paez MCH (RBC) [Entitic mass] 30.1 pg Normal 25.9-34.0 [facility] Comment on above: Performed By: #### C BC #### [facility] [address] [place] [address] Dr. Anup Paez MCHC (RBC) [Mass/Vol] 32.4 g/dL Normal 29.9-35.2 [facility] Comment on above: Performed By: #### C BC #### [facility] [address] [place] [address] Dr. Anup Paez MCV (RBC) [Entitic vol] 92.7 fL Normal 80.0-94.0 [facility] Comment on above: Performed By: #### C BC #### [facility] [address] [place] [address] Dr. Anup Paez MONO # 0.5 103/ul Normal 0.3-0.8 [facility] Comment on above: Performed By: #### C BC #### [facility] [address] [address] [address] Anup Paez Monocytes/100 WBC (Bld) 11.6 % Normal 1.7-12.0 [facility] Comment on above: Performed By: #### C BC #### [facility] [address] [place] [address] Dr. Anup Paez NEUT # 2.1 103/ul Normal 1.4-6.5 [facility] Comment on above: Performed By: #### C BC #### [facility] [address] [place] [address] Dr. Anup Paez Neutrophils/100 WBC (Bld) 46.9 % Normal 43.0-75.0 [facility] Comment on above: Performed By: #### C BC #### [facility] [address] [place] [address] Dr. Anup Paez Platelet mean volume (Bld) [Entitic vol] 12.0 fL Normal 9.5-13.5 [facility] Comment on above: Performed By: #### C BC #### [facility] [address] [place] [address] Dr. Anup Paez PLT 107 103/ul Critically low 150-450 [facility] Comment on above: Performed By: #### C BC #### [facility] [address] [place] [address] Dr. Anup Paez RBC 4.79 106/ul Normal 4.70-6.10 [facility] Comment on above: Performed By: #### C BC #### [facility] [address] [place] [address] Dr. Anup Paez WBC 4.6 103/ul Normal 4.0-11.0 [facility] Comment on above: Performed By: #### C BC #### [facility] [address] [place] [address] Dr. Anup Paez LIPID PROFILEon 02-19-2022 CHOL-HDL RATIO NORM SEE BELOW Normal [facility] Comment on above: Result Comment: 3.3 - 4.4 LOW RISK 4.4 - 7.1 AVERAGE RISK 7.1 - 11.0 MODERATE RISK >11.0 HIGH RISK Performed By: #### C MP, LIPID #### [facility] [address] [address] [address] Anup Paez Cholesterol [Mass/Vol] 120 mg/dL Normal <=200 [facility] Comment on above: Performed By: #### C MP, LIPID #### [facility] [address] [address] [address] Anup Paez Cholesterol in HDL [Mass/Vol] 33 mg/dL Critically low 40-60 [facility] Comment on above: Performed By: #### C MP, LIPID #### [facility] [address] [address] [address] Anup Paez Cholesterol in LDL [Mass/Vol] 68.2 mg/dL Normal [facility] Comment on above: Performed By: #### C MP, LIPID #### [facility] [address] [address] [address] Anup Paez Cholesterol.total/C holesterol in HDL [Mass ratio] 3.6 {ratio} Normal [facility] Comment on above: Performed By: #### C MP, LIPID #### [facility] [address] [address] [address] Anup Paez HDL NORMAL > or = 60 mg/dl - LO W CARDIOVASCULAR RISK <40 mg/dl - HIGH CARDIOVASCULAR RISK Normal [facility] Comment on above: Performed By: #### C MP, LIPID #### [facility] [address] [address] [address] Anup Paez LDL CALC NORMAL SEE BELOW Normal [facility] Comment on above: Result Comment: <100 mg/dl OPTIMAL 100 - 129 mg/dl NEAR OR ABOVE OPTIMAL 130 - 159 mg/dl BORDERLINE HIGH 160 - 189 mg/dl HIGH >190 mg/dl VERY HIGH Performed By: #### C MP, LIPID #### [facility] [address] [place] [address] Dr. Anup Paez Triglyceride [Mass/Vol] 94 mg/dL Normal <=150 [facility] Comment on above: Performed By: #### C MP, LIPID #### [facility] [address] [place] [address] Dr. Anup Paez VLDL CALC 18.8 mg/dL Normal [facility] Comment on above: Performed By: #### C MP, LIPID #### [facility] [address] [place] [address] Dr. Anup Paez PROF 14(COMP METB)on 022 Albumin [Mass/Vol] 3.6 g/dL Normal 3.4-5.0 [facility] Comment on above: Performed By: #### C MP, LIPID #### [facility] [address] [place] [address] Dr. Anup Paez Albumin/Globulin [Mass ratio] 1.0 {ratio} Normal [facility] Comment on above: Performed By: #### C MP, LIPID #### [facility] [address] [place] [address] Dr. nAup Paez ALP [Catalytic activity/Vol] 97 U/L Normal 46-116 [facility] Comment on above: Performed By: #### C MP, LIPID #### [facility] [address] [place] [address] Dr. Anup Paez ALT [Catalytic activity/Vol] 33 U/L Normal 16-63 [facility] Comment on above: Performed By: #### C MP, LIPID #### [facility] [address] [place] [address] Dr. Anup Paez Anion gap [Moles/Vol] 11.5 mmol/L Normal [facility] Comment on above: Performed By: #### C MP, LIPID #### [facility] [address] [place] [address] Dr. Anup Paez AST [Catalytic activity/Vol] 21 U/L Normal 15-37 [facility] Comment on above: Performed By: #### C MP, LIPID #### [facility] [address] [place] [address] Dr. Anup Paez Bilirubin [Mass/Vol] 0.4 mg/dL Normal 0.2-1.0 [facility] Comment on above: Performed By: #### C MP, LIPID #### [facility] [address] [place] [address] Dr. Anup Paez Calcium [Mass/Vol] 8.5 mg/dL Normal 8.5-10.1 [facility] Comment on above: Performed By: #### C MP, LIPID #### [facility] [address] [place] [address] Dr. Anup Paez Chloride [Moles/Vol] 106 mmol/L Normal 98-107 [facility] Comment on above: Performed By: #### C MP, LIPID #### [facility] [address] [place] [address] Dr. Anup Paez CO2 [Moles/Vol] 26.3 mmol/L Normal 21.0-32.0 [facility] Comment on above: Performed By: #### C MP, LIPID #### [facility] [address] [place] [address] Dr. Anup Paez Creatinine [Mass/Vol] 1.26 mg/dL Normal 0.70-1.30 [facility] Comment on above: Performed By: #### C MP, LIPID #### [facility] [address] [place] [address] Dr. Anup Paez EGFR-AF BELARUSIAN >60 Normal >=60 [facility] Comment on above: Performed By: #### C MP, LIPID #### [facility] [address] [place] [address] Dr. Anup Paez EGFR-NON AF BELARUSIAN 57 mL/min/1.73m2 Critically low >=60 [facility] Comment on above: Performed By: #### C MP, LIPID #### [facility] [address] [place] [address] Dr. Anup Paez Globulin (S) [Mass/Vol] 3.6 g/dL Normal [facility] Comment on above: Performed By: #### C MP, LIPID #### [facility] [address] [place] [address] Dr. Anup Paez Glucose [Mass/Vol] 95 mg/dL Normal 74-106 [facility] Comment on above: Performed By: #### C MP, LIPID #### [facility] [address] [address] [address] Anup Paez Potassium [Moles/Vol] 3.8 mmol/L Normal 3.5-5.1 [facility] Comment on above: Performed By: #### C MP, LIPID #### [facility] [address] [address] [address] Anup Paez Protein [Mass/Vol] 7.2 g/dL Normal 6.4-8.2 [facility] Comment on above: Performed By: #### C MP, LIPID #### [facility] [address] [place] [address] Dr. Anup Paez Sodium [Moles/Vol] 140 mmol/L Normal 136-145 [facility] Comment on above: Performed By: #### C MP, LIPID #### [facility] [address] [place] [address] Dr. Anup Paez Urea nitrogen [Mass/Vol] 16.0 mg/dL Normal 7.0-18.0 [facility] Comment on above: Performed By: #### C MP, LIPID #### [facility] [address] [place] [address] Dr. Anup Paez Urea nitrogen/Creatinine [Mass ratio] 12.7 mg/mg Normal [facility] Comment on above: Performed By: #### C MP, LIPID #### [facility] [address] [place] [address] Dr. Anup Paez PSA Total (Not a Screen)on 0 04-01-2021 PSA Total (Not a Screen) 0.620 ng/mL Normal 0.000-4.000 [facility] Comment on above: Result Comment: PERF ORMED BY: [place] [address] PATHOLOGIST [facility] [employer] MARITZA MONTANO M.D. Performed By: #### P SATOTAL #### [place] [address] [place] XR ankle LT min 3V*on 2020 XR ankle LT min 3V* [facility] [address] [place] [address] XRay Report Signed Patient: Maximino Clarke MR#: [id number] : 1955 Acct:[id number] Age/Sex: 65 / M ADM Date: 01/11/21 Loc: XDUCLY Room: Type: [facility] Attending Dr: Ailin PARRA Ordering Provider: [...] Dinora Brink M.D.01/11/2021 12:35 PM Dictation Location: [place] [address] Transcribed By: [facility] 01/11/21 1235 Dictated By: Dinora Brink MD 01/11/21 1234 Signed By: 01/11/21 1235 Normal [facility] Pulmonary Functionon 11-22-2 020 Pulmonary Function MR #: [id number] [facility] PT. Name: Maximino Clarke Date: 08/14/2020 Date [...] Scruggs MD Date Trans: 08/23/2020 05:28 P/ DIMITRIOS_JN:[id number] cc: Asha Blandon M.D. [address] [place] [phone] [facility] ARTERIAL BLOOD GAS W/COOXon 08-14-2020 BASE EXCESS 0 mmol/L Normal -2-[address] [facility] Comment on above: Performed By: #### 4 0055 #### [facility] [address] [place] [address], [facility] COHB 1.2 % Normal 0.0-1.[address] [facility] Comment on above: Performed By: #### 4 0055 #### [facility] [address] [place] [address], [facility] DELIVERY SYSTEMS ROOM AIR Normal [facility] Comment on above: Performed By: #### 4 0055 #### [facility] [address] [place] [address], [facility] FIO2 0 % Normal [facility] Comment on above: Performed By: #### 4 0055 #### [facility] [address] [place] [address], [facility] HCO3 (Bld) [Moles/Vol] 23 mmol/L Normal 21-[address] [facility] Comment on above: Performed By: #### 4 0055 #### [facility] [address] [place] [address], [facility] METHB 1.0 % Normal 0.0-1.[address] [facility] Comment on above: Performed By: #### 4 0055 #### [facility] [address] [place] [address], [facility] Oxygen (Bld) [Partial pressure] 88 mm[Hg] Normal 83-[address] [facility] Comment on above: Performed By: #### 4 0055 #### [facility] [address] [place] [address], [facility] Oxygen saturation in Blood 95.5 % Normal 94.0-97.[address] [facility] Comment on above: Performed By: #### 4 0055 #### [facility] [address] [place] [address], [facility] PCO2 32 mmHg Low 35-[address] [facility] Comment on above: Performed By: #### 4 0055 #### [facility] [address] [place] [address], [facility] pH (Bld) 7.46 [pH] High 7.35-7.[address] [facility] Comment on above: Performed By: #### 4 0055 #### [facility] [address] [place] [address], [facility] THB 12.0 g/dL Normal 12.0-16.[address] [facility] Comment on above: Performed By: #### 4 0055 #### [facility] [address] Pulmonary Functionon 020 Pulmonary Function MR #: [id number] [facility] PT. Name: Maximino Clarke Date: 05/11/2020 Date [...] Scruggs MD Date Trans: 05/23/2020 05:08 P/ DIMITRIOS_JN:[id number] cc: Asha Blandon M.D. [address] [place] [address], [address] [facility] [phone] [facility] ARTERIAL BLOOD GAS W/COOXon 05-11-2020 BASE EXCESS -1 mmol/L Normal -2-[address] [facility] Comment on above: Performed By: #### 4 0055 #### [facility] [address] [place] [address], [place] COHB 1.5 % Normal 0.0-1.[address] [facility] Comment on above: Performed By: #### 4 0055 #### [facility] [address] [place] [address], [place] DELIVERY SYSTEMS RA Normal [facility] Comment on above: Performed By: #### 4 0055 #### [facility] [address] [place] [address], [place] FIO2 0 % Normal [facility] Comment on above: Performed By: #### 4 0055 #### [facility] [address] [place] [address], [place] HCO3 (Bld) [Moles/Vol] 22 mmol/L Normal 21-[address] [facility] Comment on above: Performed By: #### 4 0055 #### [facility] [address] [place] [address], [place] METHB 1.0 % Normal 0.0-1.[address] [facility] Comment on above: Performed By: #### 4 0055 #### [facility] [address] [place] [address], [place] Oxygen (Bld) [Partial pressure] 95 mm[Hg] Normal 83-[address] [facility] Comment on above: Performed By: #### 4 0055 #### [facility] [address] [place] [address], [place] Oxygen saturation in Blood 96.5 % Normal 94.0-97.[address] [facility] Comment on above: Performed By: #### 4 0055 #### [facility] [address] [place] [address], [facility] PCO2 31 mmHg Low 35-[address] [facility] Comment on above: Performed By: #### 4 0055 #### [facility] [address] pH (Bld) 7.46 [pH] High 7.35-7.[address] [facility] Comment on above: Performed By: #### 4 0055 #### [facility] [address] THB 12.2 g/dL Normal 12.0-16.[address] [facility] Comment on above: Performed By: #### 4 0055 #### [facility] [address] [facility]. [address] *SARS-CoV-2 COVID-19on 05-08 [id number] Not Detected Normal Not Detected [facility] Comment on above: Order Comment: The A ptima SARS-CoV-2 assay is a nucleic acid amplification test intended for the qualitative detection of RNA from SARS-CoV-2 isolated and purified from nasopharyngeal (IMMIGRATION LAW SPECIALIST),oropharyngeal (OP), nasal swab, sputum, and bronchoalveolar lavage (BAL) specimens from patients with signs and symptoms of infection who are suspected of COVID-19. Results are for the identification of SARS-CoV-2 RNA. The SARS-CoV-2 RNA is generally detectable during the acute phase of infection. The Aptima SARS-CoV-2 Assay on the Leesport and Leesport Fusion system is intended for use by laboratory personnel specifically instructed and trained in the operation of the [employer] and Lees[employer] Fusion system. The Aptima SARS-CoV-2 assay is [...] information. Performed By: #### 3 1792 #### [address] CHEST HIGH RESOLUTION WIT HOUT CONTRASTon 04-22-2020 CT CHEST HIGH RESOLUTION WITHOUT CONTRAST [facility] Department of Radiology [address] [place] [phone] Patient Name: MAXIMINO CLARKE : 1955 Sex: M Age: Race: Black Pt. Location: [facility] Patient Status: O Ordered Date: 03/20/2020 1:35:00 PM Completed Date: 04/22/2020 09:10 AM Requesting Provider: NICKY BORDEN Attending Provider: NICKY BORDEN Report Copy To: ASHA BLANDON Signs & Symptoms: J84.9 Interstitial pulmonary disease, unspecified I10 History: [facility] [facility] with [facility] [address] [address] chest. auth#[id number] valid 03/24-06/24/2020 phone: [phone] No to all COVID questions - jlr [...] achievable Electronically signed: Ana Dhillon. Transcribed by: [email or web address], User Resident: Electronically Signed by: ANA DHILLON @ 04/22/2020 12:[address] [facility] Comment on above: Order Comment: Brian cols: inspiratory and excpiratory films for air trapping *SARS-CoV-2 COVID-19on 03-19 [id number] Not Detected Normal Not Detected [facility] Comment on above: Order Comment: The A ptima SARS-CoV-2 assay is a nucleic acid amplification test intended for the qualitative detection of RNA from SARS-CoV-2 isolated and purified from nasopharyngeal (IMMIGRATION LAW SPECIALIST), nasal and oropharyngeal (OP) swab specimens from patients with signs and symptoms of infection who are suspected of COVID-19. Results are for the identification of SARS-CoV-2 RNA. The SARS-CoV-2 RNA is generally detectable in nasopharyngeal and oropharyngeal swabs during the acute phase of infection. The Aptima SARS-CoV-2 Assay on the Workstreamer and Workstreamer Fusion system is intended for use by laboratory personnel specifically instructed and trained in the operation of the [place] and Workstreamer Fusion system. The Aptima SARS-CoV-2 assay is [...] information. Performed By: #### 3 1792 #### [facility] [address] [facility]. [address] Pulmonary Functionon 03-10-2 020 Pulmonary Function MR #: [id number] [facility] PT. Name: Maximino Clarke Date: 01/25/2019 Date [...] Wilberto Monahan M.D. 12/11/2019 03:12 P Wilberto Hammersley, M.D. [facility] Care and Sleep Medicine I personally reviewed the films/tests and agree with the resident's interpretation. Date Dict: 12/10/2019/12:08 Carlin/Masha Mcdermott MD Date Trans: 12/10/2019 12:08 Carlin/ DIMITRIOS_NAYELY:[id number] cc: Asha Blandon M.D. [address] [place] [phone] [facility] Vital Signs Date Time Vital Sign Value Performing Clinician Facility 04-25-2024 09:50-0400 Body height 172.72 cm [facility] 04-25-2024 09:50-0400 Body mass index (BMI) [Ratio] 29.8 kg/m2 [facility] 04-25-2024 09:50-0400 Body temperature 97.3 [degF] [facility] 04-25-2024 09:50-0400 Body weight 89.07 kg [facility] 04-25-2024 09:50-0400 Diastolic blood pressure 90 mm[Hg] [facility] 04-25-2024 09:50-0400 Heart rate 63 /min [facility] 04-25-2024 09:50-0400 Respiratory rate 16 /min [facility] 04-25-2024 09:50-0400 SaO2% (BldA) [Mass fraction] 96 % [facility] 04-25-2024 09:50-0400 Systolic blood pressure 132 mm[Hg] [facility] 04-01-2024 09:23-0400 Blood Pressure Location Saenz Sarmini [facility] 04-01-2024 09:23-0400 Diastolic blood pressure 80 mm[Hg] Saenz Sarmini [facility] 04-01-2024 09:23-0400 Heart rate 86 /min Saenz Sarmini [facility] 04-01-2024 09:23-0400 Respiratory rate 18 /min Letty Marii [facility] 04-01-2024 09:23-0400 Systolic blood pressure 126 mm[Hg] Letty Kotharimini [facility] 12-04-2023 08:58-0500 Blood Pressure Location Jim BAH [facility] 12-04-2023 08:58-0500 Body temperature 98.42 [degF] Jim BAH [facility] 12-04-2023 08:58-0500 Diastolic blood pressure 92 mm[Hg] Jimnoreen BAH [facility] 12-04-2023 08:58-0500 Heart rate 90 /min Jimnoreen BAH [facility] 12-04-2023 08:58-0500 Respiratory rate 17 /min Jim BAH [facility] 12-04-2023 08:58-0500 Systolic blood pressure 155 mm[Hg] Jim BAH [facility] 07-14-2023 13:35-0400 Diastolic blood pressure 108 mm[Hg] Mary Ellen Emilee [facility] 07-14-2023 13:35-0400 Mean blood pressure 125 mm[Hg] Mary Ellen Emilee [facility] 07-14-2023 13:35-0400 Systolic blood pressure 158 mm[Hg] Mary Ellen Emilee [facility] 11-22-2022 15:37-0500 Blood Pressure Location Grzegorz BUSTILLO [facility] 11-22-2022 15:37-0500 Diastolic blood pressure 90 mm[Hg] Grzegorz ORTIZArleen [facility] 11-22-2022 15:37-0500 Heart rate 68 /min Grzegorz DANNA [facility] 11-22-2022 15:37-0500 Respiratory rate 16 /min Grzegorz DANNA [facility] 11-22-2022 15:37-0500 Systolic blood pressure 126 mm[Hg] Grzegorz ORTIZArleen [facility] Encounters Encounter Date Encounter Type Care Provider Facility Start: 05-27-2024 End: 05-28-2024 [facility] Start: 05-02-2024 End: 05-02-2024 Evaluation and management of inpatient [facility] Start: 04-30-2024 End: 05-02-2024 Evaluation and management of inpatient [facility] Start: 04-25-2024 End: 04-25-2024 ambulatory [facility] Work Phone: Start: 04-25-2024 End: 04-25-2024 Patient encounter procedure [facility] Nephrology Elpidio Work Phone: Start: 04-24-2024 End: 04-24-2024 Evaluation and management of inpatient [facility] Start: 04-01-2024 End: 04-01-2024 ambulatory Mray Ellen L Emilee Facility:[facility] Start: 04-01-2024 End: 04-01-2024 Patient encounter procedure Letty Ryan [facility] Start: 02-07-2024 ambulatory Mary Ellen Emilee Facility:[facility] Start: 01-02-2024 End: 01-02-2024 ambulatory Mary Ellen L Emilee Facility:[facility] Start: 12-28-2023 End: 12-28-2023 ambulatory Mary Ellen L Emilee Facility:[facility] Start: 12-08-2023 End: 12-08-2023 ambulatory [facility] Start: 12-04-2023 End: 12-04-2023 ambulatory Jim BAH Facility: [facility] Start: 12-04-2023 End: 12-04-2023 Patient encounter procedure Jim BAH [facility] Start: 10-13-2023 End: 10-13-2023 ambulatory Mary Ellen L Emilee Facility:[facility] Start: 10-06-2023 End: 10-06-2023 ambulatory [facility] Start: 08-30-2023 End: 08-30-2023 ambulatory Mary Ellen L Emilee Facility:[facility] Start: 07-14-2023 End: 07-14-2023 Lab Drop off Mary Ellen L Emilee [facility] Start: 07-14-2023 End: 07-14-2023 ambulatory Mary Ellen L Emilee Facility:[facility] Start: 12-28-2022 End: 12-28-2022 Patient encounter procedure Grzegorz R NILL [facility] [place] Start: 12-14-2022 End: 12-14-[address] ASHA BLANDON . Facility:[facility] Start: 11-22-2022 End: 11-22-2022 Patient encounter procedure Grzegorz R NILL [facility] [place] Start: 10-11-2022 End: 10-12-[address] ASHA BLANDON . Facility:[facility] Start: 02-24-2022 Encounter for genera l adult medical examination without abnormal findings DR ASHA BLANDON . [facility] Start: 02-19-2022 End: 02-20-[address] ASHA BLANDON . Facility: Start: 02-19-2022 End: 02-20-2022 Encounter for general adult medical examination without abnormal findings DR ASHA BLANDON . Facility: Procedures Date Procedure Procedure Detail Performing Clinician Start: 12-14-2022 Colonoscopy Grzegorz NI LL Start: 02-19-[address] ASHA FRASERT . Comment on above: Performed By: #### P SASC #### [facility] [address] [place] [address] Dr. Anup Paez Start: 04-29-2019 Transrectal biopsy o f prostate using ultrasound guidance Grzegorz NILL Start: 07-17-2017 Cystoscopy w/UD Grzegorz NILL Start: 04-09-2014 Cystoscopy Grzegorz NI LL Comment on above: w/green light laser of prostate Start: 09-11-2013 Colonoscopy Grzegorz NI LL Cardiac catheterization Mateus ael ANGELL Cardiac Stent Grzegorz BUSTILLO Extraction of cataract Patri ayaan BAH Fluid Removed from Lungs Jax hael ANGELL Partial resection of colon M humphrey DANNA Plan of Treatment Date Care Activity Detail Author Start: 12-09-2024 ambulatory Ambulatory Facility:[facility] [place] Renal function 2000 panel - Serum or Plasma [facility] Immunizations Immunization Date Immunization Notes Care Provider Fa cility 06-09-2022 influenza virus vaccine, unspecified formulation Grzegorz BUSTILLO [facility] 09-21-2021 SARS-CoV-2 (COVID-19 ) mRNA BNT-162b2 vax Grzegorz BUSTILLO [facility] [place] 01-05-2021 SARS-CoV-2 (COVID-19 ) mRNA BNT-162b2 marilyn BUSTILLO [facility] [place] 12-14-2020 SARS-CoV-2 (COVID-19 ) mRNA BNT-162b2 marilyn BUSTILLO [facility] [place] Payers Date Payer Category Payer Private Health Insurance [facility] [id number] 2023 Medicare [id number] 1959 Medicare [id number] 1959 Unknown [id number] 1959 Unknown [id number] 1955 Unknown [id number] 2.16.84 0.1.529005.3.579.2.593 1955 Unknown [id number] 2.16.84 0.1.679418.3.579.2.593 1955 Unknown [id number] 2.16.84 0.1.114013.3.579.2.593 1955 Unknown [id number] 2.16.8 40.1.370213.3.579.2.727 1955 Unknown [id number] 2.16.8 40.1.316421.3.579.2.727 1955 Unknown [id number] 2.16.8 40.1.776070.3.579.2.727 1955 Unknown [id number] 2.16.8 40.1.843001.3.579.2.727 1955 Unknown [id number] 2.16.8 40.1.937047.3.579.2.727 1957 Unknown [id number] 2.16.8 40.1.711287.3.579.2.727 1955 Unknown [id number] 2.16.8 40.1.685270.3.579.2.727 1955 Unknown [id number] 2.16.8 40.1.567819.3.579.2.727 1955 Unknown [id number] 2.16.8 40.1.942365.3.579.2.727 1955 Unknown [id number] 2.16.8 40.1.578817.3.579.2.1286 1957 Unknown [id number] 2.16.8 40.1.785163.3.579.2.1286 1957 Unknown [id number] 2.16.8 40.1.328825.3.579.2.1286 1957 Unknown [id number] 2.16.8 40.1.580681.3.579.2.1286 1957 Unknown [id number] 2.16.8 40.1.867646.3.579.2.1286 1955 Unknown [id number] 2.16.8 40.1.526018.3.579.2.1286 Self-pay Self Pay [id number] Social History Date Type Detail Facility Start: 11-22-2022 End: 04-25-2024 Tobacco smoking status Never smoked tobacco (finding) [facility] Tobacco smoking status Never [facility] [place] Sex Assigned At Male [facility] Start: 1955 Sex Assigned At Male F [facility] Functional Status Date Assessment Result Facility 04-01-2024 Functional Status N/A [facility] 12-04-2023 Functional Status N/A [facility] 11-22-2022 Functional Status N/A [facility] Clinical Notes 12-14-2022 to 12-08-2023 Note Date [...] Radiology: CT chest wo IV contrast Narrative: [facility] (more content not included)... [facility] 12-04-2023 Hospital Discharge instructions Patient Education 12/04/2023 [...] urethra. Follow these instructions at home: Take ayfa-yox-mdxcsyr and prescription medicines only as told by [...] provider. Document Revised: 04/06/2022 Document Reviewed: 04/06/2022 [employer] Patient Education 2022 Sp[employer]. Follow Up Care 08/29/2023 09:19:56 With:Jim BAH MD, URL Address: [facility] [address] [place] [address]- [phone] When:Within 1 Year(s) Comments:with PSA With:Jim BAH MD, URL Address: [facility] [address] [place] [address]- [phone] When: Unknown [facility] 10-06-2023 Note New patient here to establish care. Ref from Dr. Barlow for CAD. Underwent PCI at [facility] in April 2011. He has been having chest pain the past few months, which occurs with rest. He gets SOB only with stairs and/or elevation. Denies palpitations and lightheadedness. Review of Systems Cardiovascular: Positive for chest pain and dyspnea on exertion. All other systems reviewed and are negative. [facility] 10-06-2023 Note Cardiology Clinic No te Chief [...] Radiology: CT chest wo IV contrast Narrative: [facility] Department of Radiology [address] [place] [address] ====== Patient Name: MAXIMINO CLARKE : 1955 Sex: M Age: Race: Black^Black/ Pt. Location: [facility] Patient Status: O Ordered Date: 03/20/2020 1:35:00 PM Completed Date: 04/22/2020 09:10 AM Requesting Provider: NICKY BORDEN Attending Provider: NICKY BORDEN Report Copy To: ASHA BLANDON Signs & Symptoms: J84.9 Interstitial pulmonary disease, unspecified I10 History: [facility] [employer] pc with [facility] [address] ct chest. auth#[id number] valid 03/24-06/24/2020 phone: [phone] No to all COVID questions - jlr Comments: Protocols: inspiratory and excpiratory films for air trapping Exam: CT CHEST HIGH RESOLUTION WITHOUT CONTRAST === (more content not included)... [facility] 12-14-2022 Note OPERATIVE NOTE OPERATION DATE: 12/14/2022 [...] to recovery room in good condition. CC: Asha Blandon M.D. [facility] Evaluation + Plan note No data available for this section General Surgery [place] Evaluation + Plan note Future Appointments Appointment Date:10/13/2023 01:00:00 PM Scheduled Provider:Mary Ellen Dela Cruz Location:[facility] Appointment Type:[facility] Evaluation + Plan note Future Appointments Appointment Date:12/09/2024 08:45:00 AM Scheduled Provider:Jim BHA MD Location:[facility] Appointment Type:URO Office Visit Diagnostic Tests PendingPSA Total 12/04/23 [facility] Evaluation + Plan note Future Appointments Appointment Date:12/09/2024 08:45:00 AM Scheduled Provider:Jim BAH MD Location:[facility] Appointment Type:URO Office Visit [facility] Evaluation note Diagnosis Onset Date BPH (benign prostatic hyperplasia) acute CAD (coronary artery disease) acute CKD (chronic kidney disease) stage 3, GFR 30-59 ml/min acute Hyperlipidemia acute [id number] acute Pancreatic cyst acute Secondary hyperparathyroidism acute Thrombocytopenia acute [facility] Work Phone: Hospital Discharge instructions No data available for this section General Surgery [place] Progress note No data available for this section General Surgery [place] Reason for referral (narrative) , EUS Referred by: Connor DHALIWAL, Letty Argueta [facility] Summary Purpose Family History No Family History [...] Date/ Time Advance Directives No April 02 9:00am Chief Complaint and Reason for Visit Chief Complaint Stage 3 kidney disea se Reason for Visit BPH (benign prostati c hyperplasia) CAD (coronary artery disease) CKD (chronic kidney disease) stage 3, GFR 30-59 ml/min Hyperlipidemia [id number] Pancreatic cyst Secondary hyperparathyroidism Thrombocytopenia Additional Source Comments (unrecognized sect ion and content) No Status Records FoundNo Status Records FoundNo Status Records FoundNo Status Records FoundNo Status Records FoundNo Status Records Found INFORMATION SOURCE (unrecogn ized section and content) DATE CREATED AUTHOR 09/11/2020 [facility] DATE CREATED AUTHOR AUTHOR'S ORGANIZ ATION 11/20/2021 [facility] DATE CREATED AUTHOR AUTHOR'S ORGANIZ ATION 12/21/2022 [facility] DATE CREATED AUTHOR AUTHOR'S ORGANIZ ATION 04/03/2024 [facility] DATE CREATED AUTHOR AUTHOR'S ORGANIZ ATION 05/05/2024 [facility] DATE CREATED AUTHOR AUTHOR'S ORGANIZ ATION 05/29/2024 [facility] Patient Care team informatio n (unrecognized section and content) Team Status: Active Member Role Status Dates Asha Blandon MD Primary Care Provider Active Team Status: Inactive Member Role Status Dates Asha Blandon MD Primary Care Provider Active S [...] BE BASED ON THE PRIMARY CLINICAL RECORDS. [facility] [employer] [facility]. provides no warranty or guarantee of the accuracy or completeness of information in this document.
[2024-06-04 12:18] LABS: Anion Gap 12.2; BUN Creatinine Ratio 12.1; Carbon Dioxide 26.3 mmol/L (21.0-32.0); Chloride 107 mmol/L (98-107); Estimated GFR (African America >60 (>=60); Estimated GFR (Non-African Ame 58 (>=60); Glucose 89 mg/dL (74-106); Potassium 3.5 mmol/L (3.5-5.1); Sodium 142 mmol/L (136-145)
[2024-06-04 12:23] LABS: Calcium 8.8 mg/dL (8.5-10.1)
== END 2024-06-04 10:58 | disposition home or self-care (01) ==
LOC: LAB 10:58
PROVIDERS: PCP Nurse Practitioner; Visit Provider Internal Medicine Cardiovascular Disease
DX: I11.9 Hypertensive heart disease without heart failure (principal); I10 Essential (primary) hypertension
CPT/HCPCS: 36415; 80048

== ENCOUNTER 2024-06-13 10:40 | Outpatient (OUT) | payer MEDICARE, SELFPAY ==
--- OUTSIDE RECORDS SUMMARY | 2024-06-13 10:59 | XMS_ITS | CCD ---
Author Organization [facility] Care Team Providers Care Senior Applications Developer Name Role Phone JOHANNA BLANDON Primary Care [...] Physician Mary Ellen Hebert Primary Care Physician [phone] Mary Ellen Hebert Attending Unavailable BAHJim Attending Unavailable Jim BAH Attending Unavailable EmileeMary Ellen Attending Unavailable EmileeMary Ellen gibson Admitting Unavailable EmileeMary Ellen Referring Unavailable Letty Ryan Attending Unavaila ble EmileeMary Ellen Attending Unavailable EmileeMary Ellen Attending Unavailable EmileeMary Ellen Attending Unavailable EmileeMary Ellen Attending Unavailable ALASTAL, YASEEN S Admitting Unavailable ALASTAL, YASEEN S Attending Unavailable ALASTAL, YASEEN S Attending Unavailable ALASTAL, YASEEN S Referring Unavailable SHERLY BIGGS Attending Unavailable ALGHOTHANIKAT Attending Unavailable ALGHOTHKAT ROQUE Attending Unavailable ALGHOTHKAT ROQUE Attending Unavailable Allergies Allergy Classification Reported Allergen(s) Allergy Type Date of Onset Reaction(s) Facility Unclassified (1 source) No Known Medication Allergies; 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: [No Known Medication Allergies] Propensity to adverse reactions (disorder) [facility] Repository Medications Current Medications Medication Drug Class(es) Dates Sig (Normalized) Sig (Original) albuterol 0.83 mg/ml inhalation solution (3 sources) beta2-Adrenergic Agonist Start: 07-14-2023 take 2.5 mg by inhalation every six hours albuterol 0.083% Inh Anne 3 mL 2.5 mg, 3 mL, NEB, q6hr, Refill(s) 0 Start Date: 07/14/23 Status: Ordered 24 hr alfuzosin hydrochloride 10 mg extended release oral tablet (4 sources) alpha-Adrenergic Gurpreet Start: 04-25-2024 take 10 mg by mouth once daily Alfuzosin Active 10 MG PO Daily April 25, 2024 12:00am Start: 12-04-2023 take 1 tablet by oma th once daily alfuzosin 10 mg ER Tab 10 mg = 1 tab(s), Oral, Daily, # 30 tab(s), Refills(s) 11, Pharmacy: [facility] #[id number], 174, cm, 12/04/23 9:07:00 EST, Height/Length Dosing, 90, kg, 12/04/23 9:07:00 EST, Weight Dosing Start Date: 12/04/23 Status: Ordered aspirin 81 mg delayed release oral tablet (7 sources) Platelet Aggregation Inhibitor, Nonsteroidal Anti-inflammatory Drug [...] inh, Inhalation, BID, 1 EA, Refill(s) 11, [facility] #[id number], 172.7, cm, 07/14/23 13:11:00 EDT, Height/Length Dosing, 92, kg, 07/14/23 13:11:00 EDT, Weight Dosing Start Date: 07/14/23 Status: Ordered carvedilol 12.5 mg oral tablet (6 sources) alpha-Adrenergic Gurpreet, beta-Adrenergic Gurpreet Start: 06-13-2024 take 19 mg by mouth twice daily Carvedilol Active 19 MG PO Twice daily June 13, 2024 9:55am Start: 06-13-2024 take 9.75 mg by mout h twice daily Carvedilol Active 9.75 MG PO Twice daily June 13, 2024 12:00am Start: 04-25-2024 End: 06-13-2024 take 12.5 mg by mouth twice daily Carvedilol Discontinued 12.5 MG PO Twice daily April 25, 2024 12:00am June 13, 2024 9:58am Start: 02-08-2024 take 1 tablet by oma th twice daily carvedilol 12.5 mg Tab 12.5 mg = 1 tab(s), Oral, BID, # 180 tab(s), Refills(s) 3, Pharmacy: [facility] #[id number], 174, cm, 01/02/24 10:21:00 EDT, Height/Length Dosing, 93.4, kg, 01/02/24 10:21:00 EDT, Weight Dosing Start Date: 02/08/24 Status: Ordered Start: 10-13-2023 take 1 tablet by oma th twice daily carvedilol 6.25 mg Tab 6.25 mg = 1 tab(s), Oral, BID, Refills(s) 0 Start Date: 10/13/23 Status: Ordered cholecalciferol 0.025 mg oral capsule (2 sources) Vitamin D Start: 04-25-2024 take 25 ug [...] esomeprazole 40 mg delayed release oral capsule (3 sources) Proton Pump Inhibitor Start: 04-25-2024 take 40 mg by mouth once daily Esomeprazole Magnesium Active 40 MG PO Daily April 25, 2024 12:00am Start: 04-01-2024 take 1 capsule by [facility] once daily Nexium 40 mg Cap-EC 40 mg = 1 cap(s), Oral, Daily, # 90 cap(s), Refills(s) 0, Pharmacy: [facility] #[id number], 174, cm, 04/01/24 9:33:00 EDT, Height/Length Dosing, 89, kg, 04/01/24 9:33:00 EDT, Weight Dosing Start Date: 04/01/24 Status: Ordered hydroCHLOROthiazide 25 mg oral tablet (2 sources) Thiazide Diuretic Start: 04-25-2024 take 25 mg [...] for 30 day(s), 30 tab(s), Refill(s) 0, [facility] #[id number], 172.7, cm, 11/22/22 15:44:00 EST, Height/Length Dosing, 92.5, kg, 11/22/22 15:44:00 EST, Weight Dosing Start Date: 07/12/23 Stop Date: 08/11/23 Status: Ordered Start: 11-03-2022 take 1 tablet by [facility] once daily hydrochlorothiazide-losartan 12.5 mg-100 mg oral tablet 1 tab(s), Oral, Daily, Refill(s) 0 Start Date: 11/03/22 Status: Ordered losartan potassium 25 mg oral tablet (2 sources) Angiotensin 2 Receptor Gurpreet Start: 04-25-2024 take [...] Ordered rosuvastatin calcium 20 mg oral tablet (4 sources) HMG-CoA Reductase Inhibitor Start: 04-25-2024 take [...] [Biliary calculus] 04-25-2019 Episodic Chronic kidney disease (5 sources) Chronic kidney disease stage 3; 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: [Stage 3 chronic kidney disease] 04-25-2024 Chronic Chronic obstructive pulmonary disease and bronchiectasis (11 sources) Chronic obstructive lung disease; 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: [Pulmonary emphysema] Onset: 3 11-03-2022 Chronic Coagulation and hemorrhagic disorders (5 sources) Thrombocytopenic disorder; 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: [Thrombocytopenia, unspecified] 04-25-2024 Chronic Coronary atherosclerosis and other heart disease (11 sources) Coronary arteriosclerosis; 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: [Atherosclerotic heart disease of bois [place] coronary artery without angina pectoris] Onset: 3 04-25-2019 Chronic Coronary atherosclerosis and other heart disease (1 source) Presence of coronary angioplasty implant and graft; 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: [PRESENCE COR ANGPLSTY IMPLANT AND GRAFT] Onset: 3 Episodic Disorders of lipid metabolism (11 sources) Hyperlipidemia; 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: [Hyperlipidemia, unspecified] Onset: 3 [...] sources) Headache 08-30-2023 Episodic Hyperplasia of prostate (12 sources) Benign prostatic hypertrophy with outflow obstruction; 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: [Benign prostatic hyperplasia with lower urinary tract symptoms] Onset: 3 05-04-2020 Chronic Hypertension with complications and secondary hypertension (7 sources) Chronic kidney disease due to hypertension; [...] Onset: 3 Episodic Other aftercare (1 source) extension clerk (current) use of aspirin; 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: [HALFWAY CURRENT USE OF ASPIRIN] Onset: 3 Episodic Other diseases of kidney and ureters (2 sources) Secondary hyperparathyroidism; 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: [Secondary hyperparathyroidism of renal origin] 04-25-2024 Chronic Other diseases of kidney and ureters (3 sources) Secondary hyperparathyroidism of renal origin; 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: [Secondary [...] membrane] 08-30-2023 Episodic Pancreatic disorders (not diabetes) (7 sources) Cyst of pancreas; 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: [Cyst of [...] ity Surgical Pathologyon 024 Surgical Pathology Normal [facility] Comment on above: Result Comment: [facility] [address] [place] [address] Surgical Pathology Consultation Patient Name:MAXIMINO CLARKEB:1955 (Age: 69)Gender:MTaken:04/30/2024eported:05/02/2024hysician(s):Surinder El MD ( )Copy To: Rec. #:[id number]: #[id number] Final Pathologic Diagnosis Gastric biopsy: Mild chronic gastritis with intestinal metaplasia present. Negative for helicobacter organisms on routine H&E examination Negative for dysplasia or malignancy. Report Electronically Signed Out st05/02/2024Lorena Bowles MD Interpretation performed at [facility], [address] [place], [address], License number: [id number]. Clinical History Pancreatic cyst, abdominal pain. 1. H pylori screen Gross Description Received in formalin, labeled VINCE, gastric biopsy are multiple pink-del angel soft tissue fragments aggregating 1.3 x 0.5 x 0.1 cm. The specimen is filtered and entirely submitted in one cassette. (1, ns, [id number] m7, ) mxw/04/30/2024GR Specimen(s) Received Gastric biopsy Fee Codes(s): 1; 93611 36on 04-15-2024 SARS-CoV-2 (COVID-19) RNA NIEVES+probe Ql (Unsp spec) 04/15/24@1000 Patients called stating that Maximino tested positive for COVID today, per [facility] policy he needs to wait 10 days from his positive test to be scheduled. Patient is rescheduled for 04/30/24 arriving at 0945 for a 1145 procedure with a PAT call on 04/23/24 in the am. [facility] 36on 04-09-2024 36 Scheduled EGD/EUS/Pancreatic Cyst/Abd Pain 04/19/24 @1200, PTH, Dr. El, PAT ph: 04/12/24 @1130, #[id number], Ref Dr. Ryan in [place] 04/03/24. Normal [facility] Telephoneon 04-09-2024 Telephone [id number] Maximino Clarke 1955 Date Provider Department Center 04/09/2024 [id number] LIRIANO [facility] Family History Problem Relation Age of Onset Hypertension Mother Cancer Mother Family Status - Relation Status Age at Mother Normal [facility] Gastroenterology Office/Clin ic Noteon 04-01-2024 Gastroenterology Office/Clinic [...] breakfast We will proceed with EGD with Nawras- Discussed risk and benefits with patient- agreeable [...] vax 01/05/2021 R (more content not included)... [facility] Comment on above: Result Comment: Elec tronically Signed By: Letty Ryan MD\.br\Date and Time Signed: 04/01/24 10:29 EDT\.br\Electronically Co-Signed By: Liliana Garcia MA\.br\Date and Time Co-Signed: 04/01/24 10:24 EDT Physician Referralon 024 Physician Referral [id number]# 1.00TIFF [facility] Physician Referralon 024 Physician Referral [id number]# 1.00TIFF [facility] RAD - CT Reporton 01-26-2024 RAD - CT Report [id number]#1 .00TIFF [facility] Physician Orderon 01-03-2024 Physician Order [id number]#1 .00TIFF [facility] Ambulatory Visit Summaryon 0 01-02-2024 Ambulatory Visit Summary MAXIMINO CLARKE E :1955 Visit Date:01/02/2024 Ambulatory Visit Instructions Your [...] DHALIWAL, Jim More Where: [facility] Family Medicine Office/Clini c Noteon 01-02-2024 Family [...] (COVID-19) mRNA BNT-162b2 vax 12/14/2020 Recorded Normal [facility] Comment on above: Result Comment: Elec tronically Signed By: Mary Ellen Dela Cruz\.dipti\Date and Time Signed: 01/02/24 11:42 EDT Physician Orderon 01-02-2024 Physician Order [id number]#1 .00TIFF Normal [facility] RAD - CT Reporton 01-02-2024 RAD - CT Report [id number]#1 .00TIFF Normal [facility] Ambulatory Visit Summaryon 0 12-28-2023 Ambulatory Visit [...] DHALIWAL, Jim More Where: [facility] Consenton 12-28-2023 Consent [id number]#1 .00TIFF [facility] Family Medicine Office/Clini c Noteon 12-28-2023 [...] day(s), # 14 tab(s), Refills(s) 0, Pharmacy: [facility] #[id number], 174, cm, 12/28/23 8:31:00 EDT, Height/Length Dosing, 93.3, kg, 12/28/23 8:31:00 EDT, Weight Dosing 4. Non-smoker (Z78.9: Other specified health status) continue not smoking Ordered: amoxicillin-clavulana te, = 1 tab(s), Oral, q12hr, X 7 day(s), # 14 tab(s), Refills(s) 0, Pharmacy: [facility] #[id number], 174, cm, 12/28/23 8:31:00 EDT, Height/Length Dosing, 93.3, kg, 12/28/23 8:31:00 EDT, Weight Dosing 5. Hypertension (I10: Essential (primary) hypertension) BP continues to run high. dial marker started him on carvedilol we will increase that dose today. he does not have any follow up appointments scheduled with cardiology and they are leaving on a cruise next week. RTC 4 weeks for BP check. Orders: carvedilol, 12.5 mg = 1 tab(s), Oral, BID, # 60 tab(s), Refills(s) 0, Pharmacy: [facility] #[id number], 174, cm, 12/28/23 8:31:00 EDT, Height/Length Dosing, [...] Recorded SARS (more content not included)... Normal [facility] Comment on above: Result Comment: Elec tronically Signed By: Mary Ellen Dela Cruz\.br\Date and Time Signed: 12/28/23 08:48 EDT Office Visiton 12-08-2023 Follow-up visit [id number] Maximino Clarke 1955 M Date Provider Department Center 12/08/2023 3848-KAT VASQUEZ CARD [facility] Family History Problem Relation Age of Onset Hypertension Mother Cancer Mother Family Status - Relation Status Age at Mother Level of Service:68114 LA OFFICE/OUTPATIENT ESTABLISHED MOD MDM 30 MIN Reason for Visit and Comments: Follow-up [676228] Normal [facility] Ambulatory Visit Summaryon 0 12-04-2023 Ambulatory Visit Summary MAXIMINO CLARKE :1955 Visit Date:12/04/2023 Ambulatory Visit Instructions Your Diagnosis Benign prostatic hypertrophy with outflow obstruction Your Care Team Attending Physician - SANGEETA DHALIWAL, Jim More Primary Care Physician - Mary Ellen Dela [...] DHALIWAL, Jim More Where: [facility] Patient Educationon 12-04-19 Patient Education Urology Benign [...] Follow these instructions at home: ? Take ppuz-crk-zhvplno and prescription medicines only as told by [...] the medicine (more content not included)... Normal [facility] Urology Office/Clinic Noteon 12-04-2023 Urology Office/Clinic Note Chief Complaint elevated PSA HPI Staff New pt today to reestablish care. Last saw DLS 05/04/20. Dx: BPH with obstruction, elevated PSA and weak urinary stream PSA done 07/14/23 was 1.4 Negative prostate biopsy 2019 Dysuria: no Incomplete bladder emptying: no Hematuria: [...] year [facility] [address], [place] [address]- [phone] Additional Instructions: with PSA Patient Education Benign Prostatic Hyperplasia I, Iris Robledo, personally scribed for Dr. Bah on 12/04/2023 09:44:24. . Documentation recorded by the scribe, arleen Robledo, accurately reflects the services(s) I performed and [...] mcg/inh i (more content not included)... Normal [facility] Comment on [...] DHALIWAL, Jim More Where: [facility] Family Medicine Office/Clini c Noteon 10-13-2023 Family Medicine Office/Clinic Note HPI Staff Maximino is a 68 year old male presenting for 3 month follow up SOFIA 07/14/23 pt establish care and had been without blood pressure medication for 2 months b/p: 162/112 Pt seen Lathe Setup Operator last week in [facility]. changed blood pressure medication. Patient is here [...] tab(s), Oral, Daily, 30 tab(s), Refill(s) 5, [facility] #[id number], 172.7, cm, 07/14/23 13:11:00 EDT, Height/Length Dosing, 92, kg, 07/14/23 13:11:00 EDT, Weight Dosing pravastatin, 20 mg, Oral, Daily, # 90 tab(s), Refills(s) 3, Pharmacy: [facility] #[id number], 172.7, cm, 07/14/23 13:11:00 EDT, Height/Length Dosing, [...] mRNA BNT-162b2 vax 12/14/2020 Recorded Normal [facility] Comment on above: Result Comment: Elec tronically Signed By: Emilee CARREON, Mary Ellen Daniel\.br\Date and Time Signed: 10/13/23 13:23 EST Office Visiton 10-06-2023 Follow-up visit [id number] Maximino Clarke 1955 M Date Provider Department Center 10/06/2023 3848-KAT VASQUEZ Jazmin Sparks Family History Problem Relation Age of Onset Hypertension Mother Cancer Mother Family Status - Relation Status Age at Mother Level of Service:82597 LA OFFICE/OUTPATIENT NEW MODERATE MDM 45 MINUTES Normal [facility] Retail - Clinical Noteon Retail - Clinical Note [id number] .00TIFF Normal [facility] Consultation Noteon 09-08-20 Consultation Note [id number]#1 .00TIFF Normal [facility] Ambulatory Visit Summaryon 1 10-30-2022 Ambulatory Visit Summary VINCEMAXIMINO Ricks :1955 Visit Date:08/30/2023 Ambulatory Visit Instructions Your [...] EST With: Mary Ellen Dela Cruz Where: [facility] Normal [address] [place] [address]- \.br\ Medications\.br\ What How Much When Why Instructions\.br\ New azithromycin (azithromycin 250 mg Tab) 1 Packets By Mouth As Directed Right otitis media Cough Sore throat Headache BMI 30.0-30.9,adult Non-smoker Duration: 5 Days as directed on package labeling Pickup at [facility] #[id number]\.br\ New methylPREDNISolone (Medrol 4 mg Tab) 1 Packets By Mouth As Directed Right otitis media Cough Sore throat Headache BMI 30.0-30.9,adult Non-smoker Duration: 6 Days as directed on package labeling Pickup at [facility] #[id number]\.br\ Unchanged albuterol (albuterol 0.083% Inh Anne 3 [...] Milligram By Mouth Every day\.br\ Pharmacy Information\.br\ [facility] #[id number]: [address] [place], [place] [phone]\.br\ Allergies\.br\ No Known Allergies\.br\ No Known Medication [...] for choosing us for your care.\.br\ \.br\ [facility] Ambulatory Visit Summary JADON CLARKEBRUNA Reyes :1955 [...] Monday 1:00 PM EST With: Mary Ellen Del aCruz Where: [facility] Normal [address] [place] [address]- \.br\ Medications\.br\ What How Much When Why [...] choosing us for your care.\.br\ \.br\ [facility] Family Medicine Office/Clini c Noteon [...] day(s), # 6 tab(s), Refills(s) 0, Pharmacy: [facility] #[id number], 172.7, cm, 08/30/23 16:58:00 EST, Height/Length Dosing, 92.2, kg, 08/30/23 16:58:00 EST, Weight Dosing methylPREDNISolone, = 1 packet(s), Oral, As Directed, as directed on package labeling, X 6 day(s), # 21 tab(s), Refills(s) 0, Pharmacy: [facility] #[id number], 172.7, cm, 08/30/23 16:58:00 EST, Height/Length Dosing, 92.2, kg, 08/30/23 16:58:00 EST, Weight Dosing 2. Cough (R05.9: Cough, unspecified) lung sound are tight pt coughing. pt has follow up with Dr. Barlow had CT of chest done recently Ordered: azithromycin, = 1 packet(s), Oral, As Directed, as directed on package labeling, X 5 day(s), # 6 tab(s), Refills(s) 0, Pharmacy: [facility] #[id number], 172.7, cm, 08/30/23 16:58:00 EST, Height/Length Dosing, 92.2, kg, 08/30/23 16:58:00 EST, Weight Dosing methylPREDNISolone, = 1 packet(s), Oral, As Directed, as directed on package labeling, X 6 day(s), # 21 tab(s), Refills(s) 0, Pharmacy: [facility] #[id number], 172.7, cm, 08/30/23 16:58:00 EST, Height/Length Dosing, 92.2, kg, 08/30/23 16:58:00 EST, Weight Dosing 3. Sore throat (J02.9: Acute pharyngitis, unspecified) thrat is red no exudate Ordered: azithromycin, = 1 packet(s), Oral, As Directed, as directed on package labeling, X 5 day(s), # 6 tab(s), Refills(s) 0, Pharmacy: [facility] #[id number], 172.7, cm, 08/30/23 16:58:00 EST, Height/Length Dosing, 92.2, kg, 08/30/23 16:58:00 EST, Weight Dosing methylPREDNISolone, = 1 packet(s), Oral, As Directed, as directed on package labeling, X 6 day(s), # 21 tab(s), Refills(s) 0, Pharmacy: [facility] #[id number], 172.7, cm, 08/30/23 16:58:00 EST, Height/Length Dosing, 92.2, kg, 08/30/23 16:58:00 EST, Weight Dosing 4. Headache (R51.9: Headache, unspecified) sinus tenderness Ordered: azithromycin, = 1 packet(s), Oral, As Directed, as directed on package labeling, X 5 day(s), # 6 tab(s), Refills(s) 0, Pharmacy: [facility] #[id number], 172.7, cm, 08/30/23 16:58:00 EST, Height/Length Dosing, 92.2, kg, 08/30/23 16:58:00 EST, Weight Dosing methylPREDNISolone, = 1 packet(s), Oral, As Directed, as directed on package labeling, X 6 day(s), # 21 tab(s), Refills(s) 0, Pharmacy: [facility] #37652, 172.7, cm, 08/30/23 16:58:00 EST, Height/Length Dosing, 92.2, kg, 08/30/23 16:58:00 EST, Weight Dosing 5. BMI 30.0-30.9,adult (Z68.30: Body mass index [BMI] 30.0-30.9, adult) bmi education complete Ordered: azithromycin, = 1 packet(s), Oral, As Directed, as directed on package labeling, X 5 day(s), # 6 tab(s), Refills(s) 0, Pharmacy: [facility] #[id number], 172.7, cm, 08/30/23 16:58:00 EST, Height/Length Dosing, 92.2, kg, 08/30/23 16:58:00 EST, Weight Dosing methylPREDNISolone, = 1 packet(s), Oral, As Directed, as directed on package labeling, X 6 day(s), # 21 tab(s), Refills(s) 0, Pharmacy: [facility] #11132, 172.7, cm, 08/30/23 16:58:00 EST, Height/Length Dosing, 92.2, kg, 08/30/23 16:58:00 EST, Weight Dosing 6. Non-smoker (Z78.9: Other specified health status) continue not smoking Ordered (more content not included)... [facility] Comment on above: Result Comment: Elec tronically Signed By: Mary Ellen Dela Cruz\.br\Date and Time Signed: 08/30/23 17:11 EST Consultation Noteon 08-03-20 Consultation Note [id number] .00TIFF [facility] Physician Referralon 023 Physician Referral [id number]# 1.00TIFF [facility] Ambulatory Visit Summaryon 1 Ambulatory Visit [...] With: Mary Ellen Dela Cruz Where: [facility] Jazmin Normal [facility] Auto Diffon 07-14-2023 Basophils/100 WBC (Bld) 0.7 % Normal 0.0-2.0 [facility] Comment on above: Order Comment: Order Added by Discern Expert. Performed By: #### 2 212273, 2230716, 4140733, 6414116, 51292478, 8213235, [id number] ####[facility] [address] [place] [address] Basophils/Leukocyte s Auto (Bld) [Pure # fraction] 0.0 E9/L Normal 0.0-0.2 [facility] Comment on above: Order Comment: Order Added by Discern Expert. Performed By: #### 2 409789, 9666295, 3044940, 9993792, 64859841, 4646930, [id number] ####[facility] [address] [place] [address] Eosinophils/100 WBC (Bld) 1.3 % Normal 0.0-8.0 [facility] Comment on above: Order Comment: Order Added by Discern Expert. Performed By: #### 2 337875, 3571292, 7874212, 8295850, 72808229, 6364471, [id number] ####[address] [place] [address] Eosinophils/Leukocy funmilayo Auto (Bld) [Pure # fraction] 0.1 E9/L Normal 0.0-0.5 [facility] Comment on above: Order Comment: Order Added by Discern Expert. Performed By: #### 2 915388, 7595063, 0104839, 6180008, 17041820, 4338600, [id number] ####[address] [address] Lymphocytes/100 WBC (Bld) 20.2 % Normal 14.0-50.0 [facility] Comment on above: Order Comment: Order Added by Discern Expert. Performed By: #### 2 117709, 3443958, 1310140, 7722196, 76793270, 8223560, [id number] ####[address] [address] Lymphocytes/Leukocy funmilayo Auto (Bld) [Pure # fraction] 1.4 E9/L Normal 1.0-4.0 [facility] Comment on above: Order Comment: Order Added by Discern Expert. Performed By: #### 2 066622, 0630676, 0701977, 7874458, 88908618, 4942119, 41952776 ####[address] [address] Monocytes/100 WBC (Bld) 12.3 % Normal 4.0-14.0 [facility] Comment on above: Order Comment: Order Added by Discern Expert. Performed By: #### 2 313747, 5070838, 0430882, 2595228, 21316652, 6902952, [id number] ####[address] [address] Monocytes/Leukocyte s Auto (Bld) [Pure # fraction] 0.8 E9/L Normal 0.2-1.0 [facility] Comment on above: Order Comment: Order Added by Discern Expert. Performed By: #### 2 401464, 3421049, 3302177, 3443476, 77787380, 4102953, [id number] ####[facility] [address] [place] [address] Neutrophils/100 WBC (Bld) 65.5 % Normal 36.0-75.0 [facility] Comment on above: Order Comment: Order Added by Discern Expert. Performed By: #### 2 025519, 5827337, 3248943, 3730971, 90881035, 5792788, 28666566 ####[address] [place] [address] Neutrophils/Leukocy funmilayo Auto (Bld) [Pure # fraction] 4.5 E9/L Normal 2.0-7.5 [facility] Comment on above: Order Comment: Order Added by Discern Expert. Performed By: #### 2 910900, 0043353, 8123034, 6591335, 41739724, 0751501, [id number] ####[address] [address] CBC w/ Auto Diffon Erythrocyte distribution width (RBC) [Ratio] 13.9 % Normal 10.9-14.2 [facility] Comment on above: Performed By: #### 2 998623, 2218070, 5003273, 9896229, 87032925, 2762031, 14774231 ####[address] [place] [address] Hematocrit (Bld) [Volume fraction] 47.7 % Normal 37.7-49.0 [facility] Comment on above: Performed By: #### 2 570169, 1720152, 0725157, 0424630, 67305459, 3649200, 19791977 ####[address] [place] [address] Hemoglobin (Bld) [Mass/Vol] 15.8 g/dL Normal 13.5-17.5 [facility] Comment on above: Performed By: #### 2 579270, 9936973, 1557690, 0257393, 01392377, 4753984, 54915791 ####[facility] [address] [place] [address] MCH (RBC) [Entitic mass] 30.2 pg Normal 27.0-34.0 [facility] Comment on above: Performed By: #### 2 837419, 9058482, 1439214, 1115983, 34650068, 7730831, 23888925 ####[address] [address] MCHC (RBC) [Mass/Vol] 33.2 g/dL Normal 31.4-36.0 [facility] Comment on above: Performed By: #### 2 039267, 8785587, 2803988, 7502327, 65408029, 9206236, 49163462 ####[address] [address] MCV (RBC) [Entitic vol] 90.9 fL Normal 80.0-100.0 [facility] Comment on above: Performed By: #### 2 972877, 2239303, 5529672, 6533052, 35546878, 7690127, 94882721 ####[address] [address] Platelet mean volume (Bld) [Entitic vol] 11.2 fL High 6.4-10.8 [facility] Comment on above: Performed By: #### 2 075390, 1401709, 2391476, 4430670, 07362155, 5787452, 74163660 ####[facility] [address] [place] [address] Platelets (Bld) [#/Vol] 105.0 E9/L Low 150.0-500.0 [facility] Comment on above: Performed By: #### 2 629499, 3451155, 6433954, 8877785, 40769579, 8040236, 45154947 ####[address] [address] RBC (Bld) [#/Vol] 5.2 E12/L Normal 4.3-5.9 [facility] Comment on above: Performed By: #### 2 682678, 9770699, 3390823, 0924231, 45144654, 7671949, 11523373 ####[facility] [address] [place] [address] WBC corrected for nucl RBC Auto (Bld) [#/Vol] 6.8 E9/L Normal 4.0-11.0 [facility] Comment on above: Performed By: #### 2 217069, 6261614, 0946415, 4743471, 61183718, 1808402, 01041892 ####[facility] [address] [place] [address] CHEMISTRYOrdered By: SYSTEM SYSTEM on 07-14-2023 Albumin [Mass/Vol] 4.2 g/dL Normal 3.3 - 5.0 gm/dL F [facility] Albumin/Globulin [Mass ratio] 1.2 {ratio} Normal [...] 46 mg/dL High 7 - 40 mg/dL [facility] CO2 [Moles/Vol] 28 mmol/L Normal 21 - 31 mmol/L [facility] Creatinine [Mass/Vol] 1.5 mg/dL High 0.5 - 1.3 mg/dL [facility] GFR/1.73 sq M.predicted among non-blacks MDRD (S/P/Bld) [Vol rate/Area] 51 mL/min/1.73 m2 Low >=59mL/min/1.73 m2 [facility] Chem S Comment on above: [...] used for this result was chemiluminescence using [employer]'s Access Hybritech PSA reagent. Protein [Mass/Vol] 7.8 g/dL Normal 6.0 - 7.8 gm/dL F [facility] Sodium [Moles/Vol] 148 mmol/L High 135 - 145 mmol/L [facility] Triglyceride [Mass/Vol] 230 mg/dL High <=149mg/dL [facility] TSH Qn 0.60 m[IU]/L Normal 0.34 - 5.60 mcIU/mL [facility] Urea nitrogen [Mass/Vol] 14 mg/dL Normal 5 - 21 mg/dL [facility] Urea nitrogen/Creatinine [Mass ratio] 9 mg/mg Low 10 - FT [facility] CMPon 07-14-2023 Albumin [Mass/Vol] 4.2 g/dL Normal 3.3-5.0 [facility] Comment on above: Performed By: #### 2 537162, 8360150, 5572906, 9682821, 79792277, 6064263, 89247320 ####[facility] [address] [place] [address] Albumin/Globulin (S) [Mass conc ratio] 1.2 Normal 1.1-2.2 [facility] Comment on above: Performed By: #### 2 528941, 8646340, 4110131, 4159446, 96275925, 4419947, 75375094 ####[facility] [address] [place] [address] ALP [Catalytic activity/Vol] 75 Int._Unit/L Normal 21-98 [facility] Comment on above: Performed By: #### 2 654291, 8789513, 8329941, 2777781, 10978028, 2662024, 50305853 ####[facility] [address] [place] [address] ALT No additional P-5'-P [Catalytic activity/Vol] 28 Int._Unit/L Normal 6-46 [facility] Comment on above: Performed By: #### 2 628225, 3488566, 9022631, 6640521, 16788974, 1414459, 56998425 ####[facility] [address] [place] [address] Anion gap [Moles/Vol] 11 mmol/L Normal 6-16 [facility] Comment on above: Performed By: #### 2 076237, 3945661, 1727722, 3661216, 94662285, 1203808, 40662598 ####[facility] [address] [place] [address] AST [Catalytic activity/Vol] 30 Int._Unit/L Normal 5-43 [facility] Comment on above: Performed By: #### 2 531074, 6919524, 1712203, 0218392, 61347687, 3453638, 79420297 ####[facility] [address] [place] [address] Bilirubin [Mass/Vol] 0.4 mg/dL Normal 0.0-1.1 [facility] Comment on above: Performed By: #### 2 600848, 9956560, 0790243, 8761888, 43953627, 2507243, 96405357 ####[facility] [address] [place] [address] Calcium [Mass/Vol] 10.2 mg/dL Normal 8.9-11.1 [facility] Comment on above: Performed By: #### 2 807131, 3332614, 8807773, 4321641, 31547928, 7711943, 44659163 ####[facility] [address] [place] [address] Chloride [Moles/Vol] 113 mmol/L High 101-111 [facility] Comment on above: Performed By: #### 2 504148, 5626183, 6877840, 8735958, 40513122, 6912650, 77730713 ####[facility] [address] [place] [address] CO2 [Moles/Vol] 28 mmol/L Normal 21-31 [facility] Comment on above: Performed By: #### 2 725265, 4656437, 7697969, 9921035, 61226143, 2461933, 44440151 ####[facility] [address] [place] [address] Creatinine [Mass/Vol] 1.5 mg/dL High 0.5-1.3 [facility] Comment on above: Performed By: #### 2 798893, 1835329, 3824453, 8879785, 18749136, 8166393, 14824908 ####[facility] [address] [place] [address] Globulin (S) [Mass/Vol] 3.6 g/dL Normal 1.4-4.0 [facility] Comment on above: Performed By: #### 2 162810, 4711346, 8759130, 6127775, 94515821, 0362483, 87660897 ####[facility] [address] [place] [address] Glucose [Mass/Vol] 96 mg/dL Normal 55-199 [facility] Comment on above: Result Comment: If t his glucose result represents a fasting glucose, interpretation should refer to the following reference range: 55-99 mg/dL Performed By: #### 2 864748, 0096259, 7444061, 3693173, 38480920, 1927521, 56908369 ####[facility] [address] [place] [address] Potassium [Moles/Vol] 3.6 mmol/L Normal 3.5-5.3 [facility] Comment on above: Performed By: #### 2 655055, 8818417, 7041837, 1146070, 46605173, 9081693, 74773942 ####[facility] [address] [place] [address] Protein [Mass/Vol] 7.8 g/dL Normal 6.0-7.8 [facility] Comment on above: Performed By: #### 2 883266, 8235613, 4375812, 5562514, 22933032, 6711886, 85637900 ####[facility] [address] [place] [address] Sodium [Moles/Vol] 148 mmol/L High 135-145 [facility] Comment on above: Performed By: #### 2 461310, 2926261, 9411778, 4925112, 12943578, 4432423, 30222279 ####[facility] [address] [place] [address] Urea nitrogen [Mass/Vol] 14 mg/dL Normal - [facility] Comment on above: Performed By: #### 2 017004, 9280401, 7604001, 1151048, 27729906, 2351366, 15672173 ####[facility] [address] [place] [address] Urea nitrogen/Creatinine [Mass ratio] 9 No Units Low - [facility] Comment on above: Performed By: #### 2 627192, 5734638, 9281914, 8546482, 21676513, 0770425, 97121006 ####[facility] [address] [place] [address] Family Medicine Office/Clini c Noteon 07-14-2023 Family Medicine Office/Clinic Note HPI Staff Maximino is a 68 year old male presenting to establish care Establish Care: History: Any previous diagnosis: BPH, HLD, HTN, Sleep apnea, Emphysema, COPD, interstitial pulmonary fibrosis, legionnaire's disease History of seeing any specialist: [facility] in [place] When was your last doctors visit: Last provider: Dr Blandon Any recent labs:10/11/22 TSH 0.231, wellness labs 01/2022 Health Maintenance UTD: Colonoscopy: 12/28/22 due in 10 years PSA: Acute: Current issues/complaints: SOB: getting more short of breath quicker, 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 Chronic obstructive pulmonary disease (J44.9: Chronic obstructive pulmonary disease, unspecified) pt has had COPD for 22 years. has not been to soap grinder in over 10 years. was seeing someone in [place]. Will send referral to Dr. Barlow. will order steroid inhaler today Ordered: budesonide, 1 inh, Inhalation, BID, 1 EA, Refill(s) 11, [facility] #33152, 172.7, cm, 07/14/23 13:11:00 EDT, Height/Length Dosing, 92, kg, 07/14/23 13:11:00 EDT, Weight Dosing CBC w/ Auto Diff Comprehensive Metabolic Panel [facility] External Ambulatory Referral Lab Specimen Collect [id number] Lipid Panel PSA Screen, Total Thyroid Stimulating Hormone 3. Fatigue (R53.83: Other fatigue) will order labs. BP is elevated Ordered: budesonide, 1 inh, Inhalation, BID, 1 EA, Refill(s) 11, [facility] #[id number], 172.7, cm, 07/14/23 13:11:00 EDT, Height/Length Dosing, 92, kg, 07/14/23 13:11:00 EDT, Weight Dosing CBC w/ Auto Diff Comprehensive Metabolic Panel Lab Specimen Collect [id number] Lipid Panel PSA Screen, Total Thyroid Stimulating Hormone 4. Hypertension (I10: Essential (primary) hypertension) pt has been out of BP meds for 2 months. just started taking it again 2 days ago Ordered: budesonide, 1 inh, Inhalation, BID, 1 EA, Refill(s) 11, [facility] #62316, 172.7, cm, 07/14/23 13:11:00 EDT, Height/Length Dosing, 92, kg, 07/14/23 13:11:00 EDT, Weight Dosing CBC w/ Auto Diff Comprehensive Metabolic Panel Lab Specimen Collect [id number] Lipid Panel PSA Screen, Total Thyroid Stimulating Hormone 5. Prostate cancer screening (Z12.5: Encounter for screening for malignant neoplasm of prostate) psa ordered today Ordered: budesonide, 1 inh, Inhalation, BID, 1 EA, Refill(s) 11, [facility] #14068, 172.7, cm, 07/14/23 13:11:00 EDT, Height/Length Dosing, 92, kg, 07/14/23 13:11:00 EDT, Weight Dosing CBC w/ Auto Diff Comprehensive Metabolic Panel Lab Specimen Collect [id number] Lipid Panel PSA Screen, Total Thyroid Stimulating Hormone 6. BMI 31.0-31.9,adult (Z68.31: Body mass index [BMI] 31.0-31.9, adult) BMI education complete Ordered: budesonide, 1 inh, Inhalation, BID, 1 EA, Refill(s) 11, [facility] #62946, 172.7, cm, 07/14/23 13:11:00 EDT, Height/Length Dosing, 92, kg, 07/14/23 13:11:00 EDT, Weight Dosing CBC w/ Auto Diff Comprehensive Metabolic Panel Lipid Panel PSA Screen, Total Thyroid Stimulating Hormone 7. Non-smoker (Z78.9: Other specified health status) continue not smoking Ordered: budesonide, 1 inh, Inhalation, BID, 1 EA, Refill(s) 11, [facility] #65656, 172.7, cm, 07/14/23 13:11:00 EDT, Height/Length Dosing, 92, kg, 07/14/23 13:11:00 EDT, Weight Dosing CBC w/ Auto Diff Comprehensive (more content not included)... [facility] Comment on above: Result Comment: Elec [...] 33.2 g/dL Normal 31.4 - 36.0 gm/dL [facility] HemeAutoSS MCV (RBC) [Entitic vol] 90.9 fL Normal 80.0 - 100.0 fL [facility] HemeAutoSS Platelet mean volume (Bld) [Entitic vol] 11.2 fL High 6.4 - 10.8 fL [facility] HemeAutoSS Platelets (Bld) [#/Vol] 105.0 E9/L Low 150.0 - 500.0 E9/L [facility] HemeAutoSS RBC (Bld) [#/Vol] 5.2 E12/L Normal 4.3 - 5.9 E12/L [facility] HemeAutoSS WBC corrected for nucl RBC Auto (Bld) [#/Vol] 6.8 E9/L Normal 4.0 - 11.0 E9/L [facility] HemeAutoSS Lipid Panelon 07-14-2023 Cholesterol [Mass/Vol] 191 mg/dL Normal 120-200 [facility] Comment on above: Performed By: #### 2 550598, 6787346, 6250615, 7586709, 94730192, 7102080, 92352375 ####[facility] [address] [place] [address] Cholesterol in HDL [Mass/Vol] 29 mg/dL Invalid Interpretation Code [facility] Comment on above: Result Comment: HDL > or equal to 60 mg/dL: Low cardiovascular risk HDL < 40 mg/dL : High cardiovascular risk Performed By: #### 2 067972, 8822864, 4550812, 4438311, 63953447, 9231555, 20900071 ####[facility] [address] [place] [address] Cholesterol in LDL [Mass/Vol] 106 mg/dL Normal <=129 [facility] Comment on above: Performed By: #### 2 613999, 4997488, 6962374, 0874544, 44693067, 5182195, 51203464 ####[facility] [address] [place] [address] Cholesterol in VLDL [Mass/Vol] 46 mg/dL High 7-40 [facility] Comment on above: Performed By: #### 2 909954, 6936634, 4680977, 2377794, 18253139, 1933549, 03522359 ####[facility] [address] [place] [address] Triglyceride [Mass/Vol] 230 mg/dL High <=149 [facility] Comment on above: Performed By: #### 2 862367, 4387745, 0109909, 9911332, 52481095, 8621292, 39764347 ####[facility] [address] [place] [address] PSA Screen, Totalon 07-14-20 23 Prostate specific Ag [Mass/Vol] 1.4 ng/mL Normal 0.1-3.5 [facility] Comment on above: Result Comment: The concentration of PSA determined by different manufacturers can vary due to differences in assay methods and reagent specificity. Values obtained from different assay methods cannot be used interchangeably. The methodology used for this result was chemiluminescence using [employer]'s path intelligence Hybritech PSA reagent. Performed By: #### 2 228440, 0092571, 5608517, 0383236, 97670962, 7238125, 58171082 ####[facility] [address] [place] [address] TSHon 07-14-2023 TSH Qn 0.60 m[IU]/L Normal 0.34-5.60 [facility] Comment on above: Performed By: #### 2 258941, 4314300, 5038494, 6690012, 77053593, 6772936, 95665592 ####[facility] [address] [place] [address] eGFRon 07-14-2023 GFR/1.73 sq M.predicted among non-blacks MDRD (S/P/Bld) [Vol rate/Area] 51 mL/min/1.73 m2 Low >=59 [facility] Comment on above: Order Comment: Order added by Discern Expert. Result Comment: Pharm Tech elida kidney disease could be indicated at eGFR's of less than 60 mL/min/1.73m2. Kidney failure is indicated at less than 15 mL/min/1.73m2. Performed By: #### 2 473123, 2253667, 3545500, 1527117, 32835715, 4190534, 83754333 ####[facility] [address] [place] [address] CBC AUTO DIFFon 10-11-2022 BASO # 0.0 103/ul Normal 0.0-0.1 [facility] Comment on above: Performed By: #### C BC #### [facility] [address] [place] [address] Dr. Anup Paez Basophils/100 WBC (Bld) 0.4 % Normal 0.2-2.0 [facility] Comment on above: Performed By: #### C BC #### [facility] [address] [place] [address] Dr. Anup Paez EO # 0.0 103/ul Normal 0.0-0.7 [facility] Comment on above: Performed By: #### C BC #### [facility] [address] [place] [address] Dr. Anup Paez Eosinophils/100 WBC (Bld) 0.1 % Critically low 0.9-7.0 [facility] Comment on above: Performed By: #### C BC #### [facility] [address] [place] [address] Dr. Anup Paez Erythrocyte distribution width (RBC) [Ratio] 13.2 % Normal 11.0-15.0 [facility] Comment on above: Performed By: #### C BC #### [facility] [address] [place] [address] Dr. Anup Paez Hematocrit (Bld) [Volume fraction] 43.2 % Normal 42.0-54.0 [facility] Comment on above: Performed By: #### C BC #### [facility] [address] [place] [address] Dr. Anup Paez Hemoglobin (Bld) [Mass/Vol] 14.7 g/dL Normal 14.0-18.0 [facility] Comment on above: Performed By: #### C BC #### [facility] [address] [place] [address] Dr. Anup Paez IG # 0.03 10e3/ul Normal 0.00-0.03 [facility] Comment on above: Performed By: #### C BC #### [facility] [address] [place] [address] Dr. Anup Paez IG % 0.4 % Normal 0.0-0.5 [facility] Comment on above: Performed By: #### C BC #### [facility] [address] [place] [address] Dr. Anup Paez LYMPH # 1.2 103/ul Normal 1.2-3.8 [facility] Comment on above: Performed By: #### C BC #### [facility] [address] [place] [address] Dr. Anup Peaz Lymphocytes/100 WBC (Bld) 14.8 % Critically low 20.5-60.0 [facility] Comment on above: Performed By: #### C BC #### [facility] [address] [place] [address] Dr. Anup Paez MANUAL DIFF REQ NO Normal [facility] Comment on above: Performed By: #### C BC #### [facility] [address] [place] [address] Dr. Anup Paez MCH (RBC) [Entitic mass] 30.3 pg Normal 25.9-34.0 [facility] Comment on above: Performed By: #### C BC #### [facility] [address] [place] [address] Dr. Anup Paez MCHC (RBC) [Mass/Vol] 34.0 g/dL Normal 29.9-35.2 [facility] Comment on above: Performed By: #### C BC #### [facility] [address] [place] [address] Dr. Anup Paez MCV (RBC) [Entitic vol] 89.1 fL Normal 80.0-94.0 [facility] Comment on above: Performed By: #### C BC #### [facility] [address] [address] [address] Anup Paez MONO # 0.5 103/ul Normal 0.3-0.8 [facility] Comment on above: Performed By: #### C BC #### [facility] [address] [place] [address] Dr. Anup Paez Monocytes/100 WBC (Bld) 5.5 % Normal 1.7-12.0 [facility] Comment on above: Performed By: #### C BC #### [facility] [address] [place] [address] Dr. Anup Paez NEUT # 6.6 103/ul Critically high 1.4-6.5 [facility] Comment on above: Performed By: #### C BC #### [facility] [address] [place] [address] Dr. Anup Paez Neutrophils/100 WBC (Bld) 78.8 % Critically high 43.0-75.0 [facility] Comment on above: Performed By: #### C BC #### [facility] [address] [place] [address] Dr. Anup Paez Platelet mean volume (Bld) [Entitic vol] 11.9 fL Normal 9.5-13.5 [facility] Comment on above: Performed By: #### C BC #### [facility] [address] [place] [address] Dr. Anup Paez PLT 140 103/ul Critically low 150-450 [facility] Comment on above: Performed By: #### C BC #### [facility] [address] [place] [address] Dr. Anup Paez RBC 4.85 106/ul Normal 4.70-6.10 [facility] Comment on above: Performed By: #### C BC #### [facility] [address] [place] [address] Dr. Anup Paez WBC 8.3 103/ul Normal 4.0-11.0 [facility] Comment on above: Performed By: #### C BC #### [facility] [address] [place] [address] Dr. Anup Paez FREE T3on 10-11-2022 FREE T3 2.36 pg/mlL Normal 2.18-3.98 [facility] Comment on above: Performed By: #### F T3 #### [facility] [address] [place] [address] Dr. Anup Paez FREE T4on 10-11-2022 Free T4 [Mass/Vol] 0.97 ng/dL Normal 0.76-1.46 [facility] Comment on above: Performed By: #### F T4 #### [facility] [address] [place] [address] Dr. Anup Paez TSHon 10-11-2022 TSH 0.231 uIU/mL Critically low 0.358-3.740 [facility] Comment on above: Performed By: #### T SH #### [facility] [address] [place] [address] Dr. Anup Paez CBC AUTO DIFFon 02-19-2022 BASO # 0.1 103/ul Normal 0.0-0.1 [facility] Comment on above: Performed By: #### C BC #### [facility] [address] [place] [address] Dr. Anup Paez Basophils/100 WBC (Bld) 1.1 % Normal 0.2-2.0 [facility] Comment on above: Performed By: #### C BC #### [facility] [address] [place] [address] Dr. Anup Paez EO # 0.2 103/ul Normal 0.0-0.7 [facility] Comment on above: Performed By: #### C BC #### [facility] [address] [place] [address] Dr. Anup Paez Eosinophils/100 WBC (Bld) 4.4 % Normal 0.9-7.0 [facility] Comment on above: Performed By: #### C BC #### [facility] [address] [place] [address] Dr. Anup Paez Erythrocyte distribution width (RBC) [Ratio] 12.9 % Normal 11.0-15.0 [facility] Comment on above: Performed By: #### C BC #### [facility] [address] [place] [address] Dr. Anup Paez Hematocrit (Bld) [Volume fraction] 44.4 % Normal 42.0-54.0 [facility] Comment on above: Performed By: #### C BC #### [facility] [address] [place] [address] Dr. Anup Paez Hemoglobin (Bld) [Mass/Vol] 14.4 g/dL Normal 14.0-18.0 [facility] Comment on above: Performed By: #### C BC #### [facility] [address] [place] [address] Dr. Anup Paez IG # 0.01 10e3/ul Normal 0.00-0.03 [facility] Comment on above: Performed By: #### C BC #### [facility] [address] [place] [address] Dr. Anup Paez IG % 0.2 % Normal 0.0-0.5 [facility] Comment on above: Performed By: #### C BC #### [facility] [address] [place] [address] Dr. Anup Paez LYMPH # 1.6 103/ul Normal 1.2-3.8 [facility] Comment on above: Performed By: #### C BC #### [facility] [address] [place] [address] Dr. Anup Paez Lymphocytes/100 WBC (Bld) 35.8 % Normal 20.5-60.0 [facility] Comment on above: Performed By: #### C BC #### [facility] [address] [place] [address] Dr. Anup Paez MANUAL DIFF REQ NO Normal [facility] Comment on above: Performed By: #### C BC #### [facility] [address] [place] [address] Dr. Anup Paez MCH (RBC) [Entitic mass] 30.1 pg Normal 25.9-34.0 [facility] Comment on above: Performed By: #### C BC #### [facility] [address] [place] [address] Dr. Anup Paez MCHC (RBC) [Mass/Vol] 32.4 g/dL Normal 29.9-35.2 [facility] Comment on above: Performed By: #### C BC #### [facility] [address] [place] [address] Dr. Anup Paez MCV (RBC) [Entitic vol] 92.7 fL Normal 80.0-94.0 [facility] Comment on above: Performed By: #### C BC #### [facility] [address] [place] [address] Dr. Anup Paez MONO # 0.5 103/ul Normal 0.3-0.8 [facility] Comment on above: Performed By: #### C BC #### [facility] [address] [place] [address] Dr. Anup Paez Monocytes/100 WBC (Bld) 11.6 % Normal 1.7-12.0 [facility] Comment on above: Performed By: #### C BC #### [facility] [address] [place] [address] Dr. Anup Paez NEUT # 2.1 103/ul Normal 1.4-6.5 [facility] Comment on above: Performed By: #### C BC #### [facility] [address] [place] [address] Dr. Anup Paez Neutrophils/100 WBC (Bld) 46.9 % Normal 43.0-75.0 [facility] Comment on above: Performed By: #### C BC #### [facility] [address] [place] [address] Dr. Anup Paez Platelet mean volume (Bld) [Entitic vol] 12.0 fL Normal 9.5-13.5 [facility] Comment on above: Performed By: #### C BC #### [facility] [address] [place] [address] Dr. Anup Paez PLT 107 103/ul Critically low 150-450 [facility] Comment on above: Performed By: #### C BC #### [facility] [address] [place] [address] Dr. Anup Paez RBC 4.79 106/ul Normal 4.70-6.10 [facility] Comment on above: Performed By: #### C BC #### [facility] [address] [place] [address] Dr. Anup Paez WBC 4.6 103/ul Normal 4.0-11.0 [facility] Comment on above: Performed By: #### C BC #### [facility] [address] [place] [address] Dr. Anup Paez LIPID PROFILEon 02-19-2022 CHOL-HDL RATIO NORM SEE BELOW Normal [facility] Comment on above: Result Comment: 3.3 - 4.4 LOW RISK 4.4 - 7.1 AVERAGE RISK 7.1 - 11.0 MODERATE RISK >11.0 HIGH RISK Performed By: #### C MP, LIPID #### [facility] [address] [place] [address] Dr. Anup Paez Cholesterol [Mass/Vol] 120 mg/dL Normal <=200 [facility] Comment on above: Performed By: #### C MP, LIPID #### [facility] [address] [place] [address] Dr. Anup Paez Cholesterol in HDL [Mass/Vol] 33 mg/dL Critically low 40-60 [facility] Comment on above: Performed By: #### C MP, LIPID #### [facility] [address] [place] [address] Dr. Anup Paez Cholesterol in LDL [Mass/Vol] 68.2 mg/dL Normal [facility] Comment on above: Performed By: #### C MP, LIPID #### [facility] [address] [place] [address] Dr. Anup Paez Cholesterol.total/C holesterol in HDL [Mass ratio] 3.6 {ratio} Normal [facility] Comment on above: Performed By: #### C MP, LIPID #### [facility] [address] [place] [address] Dr. Anup Paez HDL NORMAL > or = 60 mg/dl - LO W CARDIOVASCULAR RISK <40 mg/dl - HIGH CARDIOVASCULAR RISK Normal [facility] Comment on above: Performed By: #### C MP, LIPID #### [facility] [address] [place] [address] Dr. Anup Paez LDL CALC NORMAL SEE BELOW Normal [facility] Comment on above: Result Comment: <100 mg/dl OPTIMAL 100 - 129 mg/dl NEAR OR ABOVE OPTIMAL 130 - 159 mg/dl BORDERLINE HIGH 160 - 189 mg/dl HIGH >190 mg/dl VERY HIGH Performed By: #### C MP, LIPID #### [facility] [address] [place] [address] Dr. Anup Paez Triglyceride [Mass/Vol] 94 mg/dL Normal <=150 [facility] Comment on above: Performed By: #### C MP, LIPID #### [facility] [address] [place] [address] Dr. Anup Paez VLDL CALC 18.8 mg/dL Normal [facility] Comment on above: Performed By: #### C MP, LIPID #### [facility] [address] [place] [address] Dr. Anup Paez PROF 14(COMP METB)on 022 Albumin [Mass/Vol] 3.6 g/dL Normal 3.4-5.0 [facility] Comment on above: Performed By: #### C MP, LIPID #### [facility] [address] [place] [address] Dr. Anup Paez Albumin/Globulin [Mass ratio] 1.0 {ratio} Normal [facility] Comment on above: Performed By: #### C MP, LIPID #### [facility] [address] [place] [address] Dr. Anup Paez ALP [Catalytic activity/Vol] 97 U/L Normal 46-116 [facility] Comment on above: Performed By: #### C MP, LIPID #### [facility] [address] [place] [address] Dr. Anup Paez ALT [Catalytic activity/Vol] 33 U/L Normal 16-63 [facility] Comment on above: Performed By: #### C MP, LIPID #### [facility] [address] [place] [address] Dr. Anup Paez Anion gap [Moles/Vol] 11.5 mmol/L Normal [facility] Comment on above: Performed By: #### C MP, LIPID #### [facility] [address] [place] [address] Dr. Anup Paez AST [Catalytic activity/Vol] 21 U/L Normal 15-37 [facility] Comment on above: Performed By: #### C MP, LIPID #### [facility] [address] [place] [address] Dr. Anup Paez Bilirubin [Mass/Vol] 0.4 mg/dL Normal 0.2-1.0 [facility] Comment on above: Performed By: #### C MP, LIPID #### [facility] [address] [place] [address] Dr. Anup Paez Calcium [Mass/Vol] 8.5 mg/dL Normal 8.5-10.1 [facility] Comment on above: Performed By: #### C MP, LIPID #### [facility] [address] [place] [address] Dr. Anup Paez Chloride [Moles/Vol] 106 mmol/L Normal 98-107 [facility] Comment on above: Performed By: #### C MP, LIPID #### [facility] [address] [place] [address] Dr. Anup Paez CO2 [Moles/Vol] 26.3 mmol/L Normal 21.0-32.0 [facility] Comment on above: Performed By: #### C MP, LIPID #### [facility] [address] [place] [address] Dr. Anup Paez Creatinine [Mass/Vol] 1.26 mg/dL Normal 0.70-1.30 [facility] Comment on above: Performed By: #### C MP, LIPID #### [facility] [address] [place] [address] Dr. Anup Paez EGFR-AF GUYANESE >60 Normal >=60 [facility] Comment on above: Performed By: #### C MP, LIPID #### [facility] [address] [place] [address] Dr. Anup Paez EGFR-NON AF GUYANESE 57 mL/min/1.73m2 Critically low >=60 [facility] Comment on above: Performed By: #### C MP, LIPID #### [facility] [address] [place] [address] Dr. Anup Paez Globulin (S) [Mass/Vol] 3.6 g/dL Normal [facility] Comment on above: Performed By: #### C MP, LIPID #### [facility] [address] [place] [address] Dr. Anup Paez Glucose [Mass/Vol] 95 mg/dL Normal 74-106 [facility] Comment on above: Performed By: #### C MP, LIPID #### [facility] [address] [place] [address] Dr. Anup Paez Potassium [Moles/Vol] 3.8 mmol/L Normal 3.5-5.1 [facility] Comment on above: Performed By: #### C MP, LIPID #### [facility] [address] [place] [address] Dr. Anup Paez Protein [Mass/Vol] 7.2 g/dL Normal 6.4-8.2 [facility] Comment on above: Performed By: #### C MP, LIPID #### [facility] [address] [place] [address] Dr. Anup Paez Sodium [Moles/Vol] 140 mmol/L Normal 136-145 [facility] Comment on above: Performed By: #### C MP, LIPID #### [facility] [address] [place] [address] Dr. Anup Paze Urea nitrogen [Mass/Vol] 16.0 mg/dL Normal 7.0-18.0 [facility] Comment on above: Performed By: #### C MP, LIPID #### [facility] [address] [place] [address] Dr. Anup Paez Urea nitrogen/Creatinine [Mass ratio] 12.7 mg/mg Normal [facility] Comment on above: Performed By: #### C MP, LIPID #### [facility] [address] [place] [address] Dr. Anup Paez PSA Total (Not a Screen)on 0 04-01-2021 PSA Total (Not a Screen) 0.620 ng/mL Normal 0.000-4.000 [facility] Comment on above: Result Comment: PERF ORMED BY: [place] [address] PATHOLOGIST [facility] MARITZA MONTANO M.D. Performed By: #### P SATOTAL #### [address] XR ankle LT min 3V*on 2020 XR ankle LT min 3V* [facility] [place] [address] [place] [address] XRay Report Signed Patient: Maximino Clarke MR#: [id number] : 1955 Acct:[id number] Age/Sex: 65 / M ADM Date: 01/11/21 Loc: XDUCLY Room: Type: [facility] Attending Dr: Ailin PARRA Ordering [...] Dinora Brink M.D.01/11/2021 12:35 PM Dictation Location: [place] [address] Transcribed By: [facility] 01/11/21 1235 Dictated By: Dinora Brink MD 01/11/21 1234 Signed By: 01/11/21 1235 Normal [facility] Pulmonary Functionon 11-22-2 020 Pulmonary Function MR #: [id number] [facility] PT. Name: Maximino Clarke Date: 08/14/2020 Date [...] Scruggs MD Date Trans: 08/23/2020 05:28 P/ [id number] cc: Johanna Blandon M.D. [address] [place] [id number] Normal [facility] ARTERIAL BLOOD GAS W/COOXon 08-14-2020 BASE EXCESS 0 mmol/L Normal -2-3 [facility] Comment on above: Performed By: #### 4 0055 #### [facility] [address] [place] [address], [place] COHB 1.2 % Normal 0.0-1.5 [facility] Comment on above: Performed By: #### 4 0055 #### [facility] [address] [place] [address], [place] [employer] ROOM AIR Normal [facility] Comment on above: Performed By: #### 4 0055 #### [facility] [address] [place] [address], [place] FIO2 0 % Normal [facility] Comment on above: Performed By: #### 4 0055 #### [facility] [address] [place] [address], [place] HCO3 (Bld) [Moles/Vol] 23 mmol/L Normal 21-28 [facility] Comment on above: Performed By: #### 4 0055 #### [facility] [address] [place] [address], [place] METHB 1.0 % Normal 0.0-1.5 [facility] Comment on above: Performed By: #### 4 0055 #### [facility] [address] [place] [address], [place] Oxygen (Bld) [Partial pressure] 88 mm[Hg] Normal 83-108 [facility] Comment on above: Performed By: #### 4 0055 #### [facility] [address] [place] [address], [place] Oxygen saturation in Blood 95.5 % Normal 94.0-97.0 [facility] Comment on above: Performed By: #### 4 0055 #### [facility] [address] [place] [address], [place] PCO2 32 mmHg Low 35-45 [facility] Comment on above: Performed By: #### 4 0055 #### [facility] [address] [place] [address], [facility] pH (Bld) 7.46 [pH] High 7.35-7.45 [facility] Comment on above: Performed By: #### 4 0055 #### [facility] [address] [place] [address], [facility] THB 12.0 g/dL Normal 12.0-16.3 [facility] Comment on above: Performed By: #### 4 0055 #### [facility] [address] Pulmonary Functionon 020 Pulmonary Function MR #: [id number] [facility] PT. Name: Maximino Clarke Date: 05/11/2020 Date [...] Scruggs MD Date Trans: 05/23/2020 05:08 P/ [id number] cc: Johanna Blandon M.D. [address] [place] [phone] Normal [facility] ARTERIAL BLOOD GAS W/COOXon 05-11-2020 BASE EXCESS -1 mmol/L Normal -2-3 [facility] Comment on above: Performed By: #### 4 0055 #### [facility] [address] [place] [address], [facility] COHB 1.5 % Normal 0.0-1.5 [facility] Comment on above: Performed By: #### 4 0055 #### [facility] [address] [place] [address], [facility] DELIVERY SYSTEMS RA Normal [facility] Comment on above: Performed By: #### 4 0055 #### [facility] [address] [place] [address], [facility] FIO2 0 % Normal [facility] Comment on above: Performed By: #### 4 0055 #### [facility] [address] [place] [address], [facility] HCO3 (Bld) [Moles/Vol] 22 mmol/L Normal 21-28 [facility] Comment on above: Performed By: #### 4 0055 #### [facility] [address] [place] [address], [place] METHB 1.0 % Normal 0.0-1.5 [facility] Comment on above: Performed By: #### 4 0055 #### [facility] [address] [place] [address], [facility] Oxygen (Bld) [Partial pressure] 95 mm[Hg] Normal 83-108 [facility] Comment on above: Performed By: #### 4 0055 #### [facility] [address] [place] [address], [facility] Oxygen saturation in Blood 96.5 % Normal 94.0-97.0 [facility] Comment on above: Performed By: #### 4 0055 #### [facility] [address] [place] [address], [facility] PCO2 31 mmHg Low 35-45 [facility] Comment on above: Performed By: #### 4 0055 #### [facility] [address] [place] [address], [facility] pH (Bld) 7.46 [pH] High 7.35-7.45 [facility] Comment on above: Performed By: #### 4 0055 #### [facility] [address] [place] [address], [facility] THB 12.2 g/dL Normal 12.0-16.3 [facility] Comment on above: Performed By: #### 4 0055 #### [facility] [address] [facility] [address] *SARS-CoV-2 COVID-19on 05-08 [id number] Not Detected Normal Not Detected [facility] Comment on above: Order Comment: The A ptima SARS-CoV-2 assay is a nucleic acid amplification test intended for the qualitative detection of RNA from SARS-CoV-2 isolated and purified from nasopharyngeal ([employer]WAGE [employer]ANT ATTENDANT),oropharyngeal (OP), nasal swab, sputum, and bronchoalveolar lavage (BAL) specimens from patients with signs and symptoms of infection who are suspected of COVID-19. Results are for the identification of SARS-CoV-2 RNA. The SARS-CoV-2 RNA is generally detectable during the acute phase of infection. The Aptima SARS-CoV-2 Assay on the [employer] Fusion system is intended for use by laboratory personnel specifically instructed and trained in the operation of the [employer]osa [employer]onder[employer] Fusion system. The Aptima SARS-CoV-2 assay is [...] Performed By: #### 3 1792 #### [address] CHEST HIGH RESOLUTION WIT HOUT CONTRASTon 04-22-2020 CT CHEST HIGH RESOLUTION WITHOUT CONTRAST [facility] Department of Radiology [address] [place] [phone] Patient Name: MAXIMINO CLARKE : 1955 Sex: M Age: Race: Black Pt. Location: [facility] Patient Status: O Ordered Date: 03/20/2020 1:35:00 PM Completed Date: 04/22/2020 09:10 AM Requesting Provider: NICKY BORDEN Attending Provider: NICKY BORDEN Report Copy To: JOHANNA BLANDON Signs & Symptoms: J84.9 Interstitial pulmonary disease, unspecified I10 History: [facility] with [facility] [address] [address] chest. auth#[id number] valid 03/24-06/24/2020 phone: [phone] No to all COVID questions - jlr [...] achievable Electronically signed: Ana Dhillon. Transcribed by: [id number], User Resident: Electronically Signed by: ANA DHILLON @ 04/22/2020 12:42 PM Normal [facility] Comment on above: Order Comment: Brian cols: inspiratory and excpiratory films for air trapping *SARS-CoV-2 COVID-19on 03-19 [id number] Not Detected Normal Not Detected [facility] Comment on above: Order Comment: The A ptima SARS-CoV-2 assay is a nucleic acid amplification test intended for the qualitative detection of RNA from SARS-CoV-2 isolated and purified from nasopharyngeal ([employer]WAGE PLANT ATTENDANT), nasal and oropharyngeal (OP) swab specimens from patients with signs and symptoms of infection who are suspected of COVID-19. Results are for the identification of SARS-CoV-2 RNA. The SARS-CoV-2 RNA is generally detectable in nasopharyngeal and oropharyngeal swabs during the acute phase of infection. The Aptima SARS-CoV-2 Assay on the [employer] Fusion system is intended for use by laboratory personnel specifically instructed and trained in the operation of the Ponderosa and [employer] Fusion system. The Aptima SARS-CoV-2 assay is [...] Performed By: #### 3 1792 #### [address] Pulmonary Functionon 03-10-2 020 Pulmonary Function MR #: [id number] [facility] PT. Name: Maximino Clarke Date: 01/25/2019 Date [...] Mcdermott MD Date Trans: 12/10/2019 12:08 A/ [id number]_JN:[id number] cc: Johanna Blandon M.D. [address] [place] [address] A [facility] [phone] [facility] Vital Signs Date Time Vital Sign Value Performing Clinician Facility 06-13-2024 09:49-0400 Body height 172.72 cm [facility] 06-13-2024 09:49-0400 Body mass index (BMI) [Ratio] 29.6 kg/m2 [facility] 06-13-2024 09:49-0400 Body temperature 96.7 [degF] [facility] 06-13-2024 09:49-0400 Body weight 88.5 kg [facility] 06-13-2024 09:49-0400 Diastolic blood pressure 91 mm[Hg] [facility] 06-13-2024 09:49-0400 Heart rate 54 /min [facility] 06-13-2024 09:49-0400 Respiratory rate 16 /min [facility] 06-13-2024 09:49-0400 SaO2% (BldA) [Mass fraction] 98 % [facility] 06-13-2024 09:49-0400 Systolic blood pressure 132 mm[Hg] [facility] 04-25-2024 09:50-0400 Body height 172.72 cm [facility] 04-25-2024 09:50-0400 Body mass index (BMI) [Ratio] 29.8 kg/m2 [facility] 04-25-2024 09:50-0400 Body temperature 97.3 [degF] [facility] 04-25-2024 09:50-0400 Body weight 89.07 kg [facility] 04-25-2024 09:50-0400 Diastolic blood pressure 90 mm[Hg] [facility] 04-25-2024 09:50-0400 Heart rate 63 /min [facility] 04-25-2024 09:50-0400 Respiratory rate 16 /min [facility] 04-25-2024 09:50-0400 SaO2% (BldA) [Mass fraction] 96 % [facility] 04-25-2024 09:50-0400 Systolic blood pressure 132 mm[Hg] [facility] 04-01-2024 09:23-0400 Blood Pressure Location Saenz Sarmini [facility] 04-01-2024 09:23-0400 Diastolic blood pressure 80 mm[Hg] Saenz Sarmini [facility] 04-01-2024 09:23-0400 Heart rate 86 /min Saenz Sarmini [facility] 04-01-2024 09:23-0400 Respiratory rate 18 /min Saenz Sarmini [facility] 04-01-2024 09:23-0400 Systolic blood pressure 126 mm[Hg] Saenz Sarmini [facility] 12-04-2023 08:58-0500 Blood Pressure Location Jim BAH [facility] 12-04-2023 08:58-0500 Body temperature 98.42 [degF] Jim BAH [facility] 12-04-2023 08:58-0500 Diastolic blood pressure 92 mm[Hg] Jim BAH [facility] 12-04-2023 08:58-0500 Heart rate 90 /min Jim BAH [facility] 12-04-2023 08:58-0500 Respiratory rate 17 /min Jim BAH [facility] 12-04-2023 08:58-0500 Systolic blood pressure 155 mm[Hg] Jimnoreen BAH [facility] 07-14-2023 13:35-0400 Diastolic blood pressure 108 mm[Hg] Mary Ellen Emilee [facility] 07-14-2023 13:35-0400 Mean blood pressure 125 mm[Hg] Mary Ellen Emilee [facility] 07-14-2023 13:35-0400 Systolic blood pressure 158 mm[Hg] Mary Ellen Emilee [facility] 11-22-2022 15:37-0500 Blood Pressure Location Grzegorz ORTIZL [facility] [place] 11-22-2022 15:37-0500 Diastolic blood pressure 90 mm[Hg] Grzegorz NILL [facility] [place] 11-22-2022 15:37-0500 Heart rate 68 /min Grzegorz ORTIZL [facility] [place] 11-22-2022 15:37-0500 Respiratory rate 16 /min Grzegorz ORTIZL [facility] [place] 11-22-2022 15:37-0500 Systolic blood pressure 126 mm[Hg] Grzegorz ORTIZL General Surgery [facility] Encounters Encounter Date Encounter Type Care Provider Facility Start: 06-13-2024 End: 06-13-2024 ambulatory [facility] Work Phone: Start: 06-13-2024 End: 06-13-2024 Patient encounter procedure [facility] Physician [facility] Work Phone: Start: 05-27-2024 End: 05-28-2024 ambulatory [facility] Start: 05-02-2024 End: 05-02-2024 Evaluation and management of inpatient [facility] Start: 04-30-2024 End: 05-02-2024 Evaluation and management of inpatient [facility] Start: 04-25-2024 End: 04-25-2024 ambulatory [facility] Work Phone: Start: 04-25-2024 End: 04-25-2024 Patient encounter procedure [facility] Elpidio Work Phone: Start: 04-24-2024 End: 04-24-2024 Evaluation and management of inpatient [facility] Start: 04-01-2024 End: 04-01-2024 ambulatory Mary Ellen L Emilee Facility:[facility] Start: 04-01-2024 End: 04-01-2024 Patient encounter procedure Letty Ryan [facility] Start: 02-07-2024 ambulatory Mary Ellen Emilee Facility:[facility] Start: 01-02-2024 End: 01-02-2024 ambulatory Mary Ellen L Emilee Facility:[facility] [place] Start: 12-28-2023 End: 12-28-2023 ambulatory Mary Ellen L Emilee Facility:[facility] Start: 12-08-2023 End: 12-08-2023 ambulatory [facility] Start: 12-04-2023 End: 12-04-2023 ambulatory Jim R ABH Facility:[facility] Start: 12-04-2023 End: 12-04-2023 Patient encounter procedure Jim BAH [facility] Start: 10-13-2023 End: 10-13-2023 ambulatory Mary Ellen L Emilee Facility:[facility] Start: 10-06-2023 End: 10-06-2023 ambulatory [facility] Start: 08-30-2023 End: 08-30-2023 ambulatory Mary Ellen L Emilee Facility:[facility] Start: 07-14-2023 End: 07-14-2023 Lab Drop off Mary Ellen L Emilee [facility] Start: 07-14-2023 End: 07-14-2023 ambulatory Mary Ellen L Emilee Facility:[facility] Start: 12-28-2022 End: 12-28-2022 Patient encounter procedure Grzegorz R NILL General Surgery Nill/Said [facility] Start: 12-14-2022 End: 12-14-[address] JOHANNA BLANDON . Facility: Start: 11-22-2022 End: 11-22-2022 Patient encounter procedure Grzegorz R NILL [facility] Nill/Said [place] Start: 10-11-2022 End: 10-12-[address] JOHANNA BLANDON . Facility: Start: 02-24-2022 Encounter for genera l adult medical examination without abnormal findings DR JOHANNA BLANDON . [facility] Start: 02-19-2022 End: 02-20-[address] JOHANNA BLANDON . Facility: Start: 02-19-2022 End: 02-20-2022 Encounter for general adult medical examination without abnormal findings DR JOHANNA BLANDON . Facility: Procedures Date Procedure Procedure Detail Performing Clinician Start: 12-14-2022 Colonoscopy Grzegorz NI LL Start: 02-19-[address] JOHANNA LEDEZMA . Comment on above: Performed By: #### P [facility] #### [facility] [address] [place] [address] [address] Anup Paez Start: 04-29-2019 Transrectal biopsy o f prostate using ultrasound guidance Grzegorz NILL Start: 07-17-2017 Cystoscopy w/UD Grzegorz NILL Start: 04-09-2014 Cystoscopy Grzegorz NI LL Comment on above: w/green light laser of prostate Start: 09-11-2013 Colonoscopy Grzegorz NI LL Cardiac catheterization Mateus ael NILL Cardiac Stent Grzegorz NILL Extraction of cataract Patri ck BAH Fluid Removed from Lungs Jax hael NILL Partial resection of colon M humphrey NILL Plan of Treatment Date Care Activity Detail Author Start: 12-09-2024 ambulatory Ambulatory Facility:[facility] Renal function 1999 panel - Serum or Plasma [facility] Renal function 1999 panel - Serum or Plasma [facility] Immunizations Immunization Date Immunization Notes Care Provider Fa cili 06-09-2022 influenza virus vaccine, unspecified formulation Grzegorz NILL [facility] 09-21-2021 SARS-CoV-2 (COVID-19 ) mRNA BNT-162b2 vax Grzegorz NILL [facility] 01-05-2021 SARS-CoV-2 (COVID-19 ) mRNA BNT-162b2 vax Grzegorz NILL [facility] 12-14-2020 SARS-CoV-2 (COVID-19 ) mRNA BNT-162b2 vax Grzegorz NILL [facility] Payers Date Payer Category Payer Private Health Insurance [id number] 2023 Medicare [id number] 1959 Medicare [id number] 1959 Unknown [id number] 1959 Unknown [id number] 1957 Unknown [id number] 2.16.84 0.1.703682.3.579.2.593 1957 Unknown [id number] 2.16.84 0.1.028841.3.579.2.593 1957 Unknown [id number] 2.16.84 0.1.156164.3.579.2.593 1957 Unknown [id number] 2.16.8 40.1.048431.3.579.2.727 1957 Unknown [id number] 2.16.8 40.1.050618.3.579.2.727 1957 Unknown [id number] 2.16.8 40.1.551295.3.579.2.727 1957 Unknown [id number] 2.16.8 40.1.064356.3.579.2.727 1957 Unknown [id number] 2.16.8 40.1.450344.3.579.2.727 1957 Unknown [id number] 2.16.8 40.1.951414.3.579.2.727 1957 Unknown [id number] 2.16.8 40.1.533869.3.579.2.727 1957 Unknown [id number] 2.16.8 40.1.316011.3.579.2.727 1957 Unknown [id number] 2.16.8 40.1.786845.3.579.2.727 1957 Unknown [id number] 2.16.8 40.1.662746.3.579.2.1286 1957 Unknown [id number] 2.16.8 40.1.796302.3.579.2.1286 1957 Unknown [id number] 2.16.8 40.1.035719.3.579.2.1286 1957 Unknown [id number] 2.16.8 40.1.777155.3.579.2.1286 1957 Unknown [id number] 2.16.8 40.1.416084.3.579.2.1286 1957 Unknown [id number] 2.16.8 40.1.342756.3.579.2.1286 Self-pay Self Pay [id number] Social History Date Type Detail Facility Start: 11-22-2022 End: 04-25-2024 Tobacco smoking status Never smoked tobacco (finding) [facility] Tobacco smoking status Never [facility] Sex Assigned At Male [facility] Start: 1955 Sex Assigned At Male [facility] Functional Status Date Assessment Result Facility 04-01-2024 Functional Status N/A [facility] 12-04-2023 Functional Status N/A [facility] 11-22-2022 Functional Status N/A [facility] Clinical Notes 12-14-2022 to 12-08-2023 Note Date [...] Radiology: CT chest wo IV contrast Narrative: [facility] (more content not included)... [facility] 12-04-2023 Hospital Discharge instructions Patient Education 12/04/2023 [...] urethra. Follow these instructions at home: Take [id number] and prescription medicines only as told by [...] provider. Document Revised: 04/06/2022 Document Reviewed: 04/06/2022 WebMD Patient Education 2022 [employer]. Follow Up Care 08/29/2023 09:19:56 With:Jim BAH MD, URL Address: [facility] [address] [place] [place] [address]- [phone] When:Within 1 Year(s) Comments:with PSA With:Jim BAH MD, URL Address: [facility] [address] [place] [address]- [phone] When: Unknown [facility] 10-06-2023 Note New patient here to establish care. Ref from Dr. Barlow for CAD. Underwent PCI at [facility] in April 2011. He has been having chest pain the past few months, which occurs with rest. He gets SOB only with stairs and/or elevation. Denies palpitations and lightheadedness. Review of Systems Cardiovascular: Positive for chest pain and dyspnea on exertion. All other systems reviewed and are negative. [facility] 10-06-2023 Note Cardiology Clinic No te Chief [...] Radiology: CT chest wo IV contrast Narrative: [facility] Department of Radiology [address] [place] [id number] ====== Patient Name: MAXIMINO CLARKE : 1955 Sex: M Age: Race: Black^Black/ Pt. Location: [facility] Patient Status: O Ordered Date: 03/20/2020 1:35:00 PM Completed Date: 04/22/2020 09:10 AM Requesting Provider: NICKY BORDEN Attending Provider: NICKY BORDEN Report Copy To: JOHANNA BLANDON Signs & Symptoms: J84.9 Interstitial pulmonary disease, unspecified I10 History: [facility] [address] ct chest. auth#[id number] valid 03/24-06/24/2020 phone: [phone] No to all COVID questions - jlr Comments: Protocols: inspiratory and excpiratory films for air trapping Exam: CT CHEST HIGH RESOLUTION WITHOUT CONTRAST === (more content not included)... [facility] 12-14-2022 Note OPERATIVE NOTE OPERATION DATE: 12/14/2022 [...] good condition. CC: Johanna Blandon M.D. [facility] Evaluation + Plan note No data available for this section [facility] Evaluation + Plan note Future Appointments Appointment Date:10/13/2023 01:00:00 PM Scheduled Provider:Mary Ellen Dela Cruz Location:[facility] Appointment Type:[facility] Evaluation + Plan note Future Appointments Appointment Date:12/09/2024 08:45:00 AM Scheduled Provider:Jim BAH MD Location:[facility] Appointment Type:URO Office Visit Diagnostic Tests PendingPSA Total 12/04/23 [facility] Evaluation + Plan note Future Appointments Appointment Date:12/09/2024 08:45:00 AM Scheduled Provider:Jim BAH MD Location:[facility] Appointment Type:URO Office Visit [facility] Evaluation note Diagnosis Onset Date BPH (benign prostatic hyperplasia) acute CAD (coronary artery disease) acute CKD (chronic kidney disease) stage 3, GFR 30-59 ml/min acute Hyperlipidemia acute [id number] acute Pancreatic cyst acute Secondary hyperparathyroidism acute Thrombocytopenia acute [facility] Work Phone: Evaluation note* Diagnosis Onset Date Resolution Status BPH (benign prostatic hyperplasia) acute CAD (coronary artery disease) acute CKD (chronic kidney disease) stage 3, GFR 30-59 ml/min acute Hyperlipidemia acute [id number] acute Pancreatic cyst acute Secondary hyperparathyroidism acute Thrombocytopenia acute BPH (benign prostatic hyperplasia) acute CAD (coronary artery disease) acute CKD (chronic kidney disease) stage 3, GFR 30-59 ml/min acute Hyperlipidemia acute [id number] acute Pancreatic cyst acute Secondary hyperparathyroidism acute Thrombocytopenia acute [facility] Work Phone: Hospital Discharge instructions No data available for this section [facility] note No data available for this section [facility] Reason for referral (narrative) , EUS Referred by: Letty Ryan MD [facility] Summary Purpose Family History No Family History Records FoundNo Family History Records FoundNo Family History Records Found No data available for this section No data available for this section No data available for this section No Family History Records FoundNo Family History Records FoundNo Family History Records Found Advance Directives Advance Directive Response Recorded Date/ Time Advance Directives No April 02 0 9:00am Chief Complaint and Reason for Visit Chief Complaint Stage 3 kidney disea se Reason for Visit BPH (benign prostati c hyperplasia) CAD (coronary artery disease) CKD (chronic kidney disease) stage 3, GFR 30-59 ml/min Hyperlipidemia [id number] Pancreatic cyst Secondary hyperparathyroidism Thrombocytopenia Chief Complaint Stage 3 kidney disea se RENAL 2 months Reason for Visit BPH (benign prostati c hyperplasia) CAD (coronary artery disease) CKD (chronic kidney disease) stage 3, GFR 30-59 ml/min Hyperlipidemia [id number] Pancreatic cyst Secondary hyperparathyroidism Thrombocytopenia BPH (benign prostatic hyperplasia) CAD (coronary artery disease) CKD (chronic kidney disease) stage 3, GFR 30-59 ml/min Hyperlipidemia [id number] Pancreatic cyst Secondary hyperparathyroidism Thrombocytopenia Additional Source Comments (unrecognized sect ion and content) No Status Records FoundNo Status Records FoundNo Status Records FoundNo Status Records FoundNo Status Records FoundNo Status Records Found INFORMATION SOURCE (unrecogn ized section and content) DATE CREATED AUTHOR 09/11/2020 [facility] DATE CREATED AUTHOR AUTHOR'S ORGANIZ ATION 11/20/2021 [facility] DATE CREATED AUTHOR AUTHOR'S ORGANIZ ATION 12/21/2022 [facility] DATE CREATED AUTHOR AUTHOR'S ORGANIZ ATION 04/03/2024 [facility] DATE CREATED AUTHOR AUTHOR'S ORGANIZ ATION 05/05/[address] [facility] DATE CREATED AUTHOR AUTHOR'S ORGANIZ ATION 05/29/2024 [facility] Patient Care team informatio n (unrecognized section and content) Team Status: Active Member Role Status Dates Johanna Blandon MD Primary Care Provider Active Team Status: Inactive Member Role Status Dates Johanna Blandon MD Primary Care Provider Active S tart: April 25, 2024 End: April 25, 2024 Cecilia Alford MD Attending Provider Active Start : April 25, 2024 End: April 25, 2024 Team Status: Inactive Member Role Status Dates Johanna Blandon MD Primary Care Provider Active S tart: June 13, 2024 End: June 13, 2024 Cecilia Alford MD Attending Provider Active Start : June 13, 2024 End: June 13, 2024 Goals (unrecognized section and content) Goals [...] BE BASED ON THE PRIMARY CLINICAL RECORDS. [facility] provides no warranty or guarantee of the accuracy or completeness of information in this document.
[2024-06-13 11:02] LABS: Hematocrit 42.6 % (42.0-54.0); Hemoglobin 13.8 g/dL (14.0-18.0); Mean Corpuscular HGB Conc 32.4 g/dL (29.9-35.2); Mean Corpuscular Hemoglobin 29.7 pg (25.9-34.0); Mean Corpuscular Volume 91.8 fL (80.0-94.0); Mean Platelet Volume 11.7 fL (9.5-13.5); Platelet Count 110 10^3/uL (150-450); Red Blood Count 4.64 10^6/uL (4.70-6.10); Red Cell Distribution Width 13.1 % (11.0-15.0); White Blood Count 4.7 10^3/uL (4.0-11.0)
[2024-06-13 11:05] LABS: Creatinine Urine Random 188.56 mg/dL (20.00-300.00); Protein Creatinine Ratio Urine 0.11; Total Protein Urine Random 20.1 mg/dL (<=11.9)
[2024-06-13 11:19] LABS: Bilirubin Urine NEGATIVE (NEGATIVE); Blood Urine NEGATIVE (NEGATIVE); Clarity Urine CLEAR (CLEAR); Color Urine YELLOW (YELLOW); Glucose Urine UA NEGATIVE (NEGATIVE); Ketones Urine NEGATIVE (NEGATIVE); Leukocyte Esterase Urine NEGATIVE (NEGATIVE); Nitrite Urine NEGATIVE (NEGATIVE); Protein Urine NEGATIVE (NEG/TRACE); Urobilinogen Urine 0.2 EU/dL (0.2-1.0); pH Urine 6.5 (5.0-9.0)
[2024-06-13 11:37] LABS: Albumin Level 3.4 g/dL (3.4-5.0); Anion Gap 8.5; BUN Creatinine Ratio 11.3; Carbon Dioxide 33.9 mmol/L (21.0-32.0); Chloride 104 mmol/L (98-107); Estimated GFR (African America >60 (>=60); Estimated GFR (Non-African Ame 58 (>=60); Glucose 89 mg/dL (74-106); Magnesium 1.9 mg/dL (1.8-2.4); Phosphorus 2.8 mg/dL (2.6-4.7); Potassium 3.4 mmol/L (3.5-5.1); Sodium 143 mmol/L (136-145); Uric Acid 7.4 mg/dL (3.5-7.2)
[2024-06-13 11:42] LABS: Bacteria Urine NONE SEEN #/HPF (NONE SEEN); Mucus Urine TRACE (NONE SEEN); RBC Urine NONE SEEN #/HPF (0-2); Squamous Epithelial Cell Urine FEW #/LPF (NONE/RARE); WBC Urine NONE SEEN #/HPF (NONE SEEN)
[2024-06-14 11:10] LABS: PTH, Intact 35 pg/mL (15-65)
== END 2024-06-13 10:41 | disposition home or self-care (01) ==
PROVIDERS: PCP Nurse Practitioner; Visit Provider Internal Medicine
DX: K86.2 Cyst of pancreas (principal); E78.5 Hyperlipidemia, unspecified; N40.0 Benign prostatic hyperplasia without lower urinary tract symptoms; I25.10 Atherosclerotic heart disease of native coronary artery without angina pectoris; D69.6 Thrombocytopenia, unspecified; I12.9 Hypertensive chronic kidney disease with stage 1 through stage 4 chronic kidney disease, or unspecified chronic kidney disease
CPT/HCPCS: 36415; 80069; 81001; 82306; 82570; 83735; 83970; 84156; 84550; 85027

== ENCOUNTER 2024-08-12 12:48 | Outpatient (OUT) | payer MEDICARE, SELFPAY ==
--- NOTE | 2024-08-12 14:13 | CT_ITS ---
The [address] [address] Patient Name: MAXIMINO CLARKE MRN: [id number] date: 1955 Sex: M Assigned Patient Location: CARD Current Patient Location: Accession/Order Number: [id number] Exam Date: 08/12/2024 14:29 Report Date: 08/15/2024 05:00 At the request of: RUBI RIDLEY Procedure: CT chest high res EXAMINATION: CT chest high res HISTORY: Centrilobular Emphysema COMPARISON: CTA chest 05/07/2024, CT CHEST HIGH RESOLUTION 08/10/2023 TECHNIQUE: Axial images were obtained at 10 mm intervals during inspiration and expiration in the supine and prone positions. No IV contrast given. Dose reduction techniques were achieved by using automated exposure control and/or adjustment of mA and/or kV according to patient size and/or use of iterative reconstruction technique. FINDINGS: LUNGS: Moderate-marked emphysematous changes bilaterally. Mild bronchiectasis within lung bases. No acute infiltrates, air trapping, or significant peripheral fibrosis. PLEURA: No mass, effusion, or pneumothorax. KRISTEN: No mass or adenopathy. MEDIASTINUM: No mass or adenopathy. HEART: No significant enlargement or pericardial effusion.. Coronary arteries: Mild AORTA: No aneurysm.. CHEST WALL: No mass or axillary adenopathy LIMITED ABDOMEN: Small hypodensities within right hepatic lobe favoring cysts. Numerous 1 cm stones within gallbladder. Limited images of the upper abdomen. OTHER: Negative. CT/CT chest high res IMPRESSION: 1. Moderate-marked emphysematous changes and mild bronchiectasis. No appreciable change compared to prior study. 2. Cholelithiasis. Electronically authenticated by: EMMANUEL LEE Date: 08/15/2024 05:00
[2024-08-12] MEDS: ALBUTEROL SULFATE 2.5 MG/3 ML VIAL NEB IH (14:23)
== END 2024-08-12 12:49 | disposition home or self-care (01) ==
LOC: CARD 12:50
PROVIDERS: PCP Nurse Practitioner; Visit Provider Internal Medicine
DX: J43.2 Centrilobular emphysema (principal); K80.20 Calculus of gallbladder without cholecystitis without obstruction
CPT/HCPCS: 36415; 71250; 85018; 94060; 94726; 94729

== ENCOUNTER 2024-11-13 11:01 | Outpatient (OUT) | payer MEDICARE, SELFPAY ==
--- OUTSIDE RECORDS SUMMARY | 2024-11-13 11:22 | XMS_ITS | CCD ---
Author Organization [facility] CliniSyar Care Team Providers Care Solar Installer Name Role Phone ASHA BLANDON Primary Care Physician AMIRA ., DR ASHA Reyes Primary Care Unavailable NILL ., DR DEVI Admitting Unavailable NILL ., DR DEVI Attending Unavailable NILL ., DR DEVI Consulting Unavailable DAVIN FRAGA Consulting Unavailable LISANDRA TUTTLE Consulting Unavailable BLANDON ., DR ASHA Reyes Admitting Unavailable BLANDON ., DR ASHA Reyes Attending Unavailable BLANDON ., DR ASHA Reyes Consulting Unavailable BLANDON ., DR ASHA Reyes Primary Care Unavailable BLANDON ., DR ASHA eRyes Admitting Unavailable BLANDON ., DR ASHA Reyes Attending Unavailable BLANDON ., DR ASHA Reyes Consulting Unavailable BLANDON ., DR ASHA Reyes Primary Care Unavailable ASHA BLANDON Primary Care Physician Mary Ellen Hebert Primary Care Physician SURINDER ESCALOAN Admitting Unavailable ALASTAL YASEEN S Attending Unavailable ALASTAL YASEEN S Attending Unavailable ALASTAL YASEEN S Referring Unavailable SHERLY BIGGS Attending Unavailable KAT VASQUEZ Attending Unavailable KAT VASQUEZ Attending Unavailable KAT VASQUEZ Attending Unavailable Jim BAH Attending Unavailable Jim BAH Attending Unavailable Letty Ryan Attending Unavaila Mary Ellen Cleaning Referring Unavailable Mary Ellen Hebert Attending Unavailable Mary Ellen Hebert Attending Unavailable Mary Ellen Hebert Attending Unavailable Allergies Allergy Classification Reported Allergen(s) Allergy Type Date of Onset Reaction(s) Facility (1 source) No Known Medication Allergies; 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: [No Known Medication Allergies] Propensity to adverse reactions (disorder) [facility] Repository Medications Current Medications Medication [...] Daily, # 30 tab(s), Refills(s) 11, Pharmacy: [facility] #[id number], 174, cm, 12/04/23 9:07:00 EST, Height/Length Dosing, [...] inh, Inhalation, BID, 1 EA, Refill(s) 11, [id number], 172.7, cm, 07/14/23 13:11:00 EDT, Height/Length Dosing, [...] BID, # 180 tab(s), Refills(s) 3, Pharmacy: [facility] #[id number], 174, cm, 01/02/24 10:21:00 EDT, Height/Length Dosing, [...] Start: 04-01-2024 take 1 capsule by mo [facility] once daily Nexium 40 mg Cap-EC 40 mg = 1 cap(s), Oral, Daily, # 90 cap(s), Refills(s) 0, Pharmacy: [facility] #[id number], 174, cm, 04/01/24 9:33:00 EDT, Height/Length Dosing, [...] for 30 day(s), 30 tab(s), Refill(s) 0, [facility] #[id number], 172.7, cm, 11/22/22 15:44:00 EST, Height/Length Dosing, 92.5, kg, 11/22/22 15:44:00 EST, Weight Dosing Start Date: 07/12/23 Stop Date: 08/11/23 Status: Ordered Start: 11-03-2022 take 1 tablet by [facility] once daily hydrochlorothiazide-losartan 12.5 mg-100 mg oral [...] Coronary arteriosclerosis; 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: [Atherosclerotic heart disease of [place] coronary artery without angina pectoris] Onset: 3 [...] Onset: 3 Episodic Other aftercare (1 source) penitentiary (current) use of aspirin; 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: [GROCERY CADDY CURRENT USE OF ASPIRIN] Onset: 3 Episodic [...] Results Test Name Value Interpretation Reference Range Facility Ambulatory Visit Summaryon 0 10-07-2024 Ambulatory Visit Summary Ambulatory Visit Summary VINCEMAXIMINO :1955 Visit Date:10/07/2024 Ambulatory Visit Instructions Your Diagnosis Sinusitis Fluid level behind tympanic membrane of both ears Non-smoker BMI 31.0-31.9,adult Exogenous obesity Your Care Team Attending Physician - Mary Ellen Dela Cruz Primary Care Physician - Mary Ellen Dela Cruz This Is [facility]ations [facility] (CP[facility]) albuterol (albuterol 0.083% Inh Anne 3 mL) alfuzosin (alfuzosin 10 mg ER Tab) amoxicillin-clavulanat e (amoxicillin-clavulana te 875 mg-125 mg Tab) aspirin budesonide (Pulmicort Flexhaler 90 mcg/inh inhalation powder) carvedilol (carvedilol 12.5 mg Tab) cholecalciferol (D3 1000 intl units (25 mcg) oral tablet) esomeprazole (Nexium 40 mg Cap-EC) rosuvastatin (rosuvastatin 20 mg Tab) Procedures Performed Colonoscopy (12/14/2022), Transrectal biopsy of prostate using ultrasound (US) guidance (04/29/2019), Cystoscopy w/UD (07/17/2017), Cystoscopy (04/09/2014), Colonoscopy (09/11/2013), Cardiac catheterization, Cardiac Stent, CE - Cataract extraction, Fluid Removed from Lungs, Partial colectomy. Discharge Vitals Temperature (Oral) 36.8 ???C Heart Rate (Peripheral) 84 Respiratory Rate 20 Blood Pressure 132/84 Height 174.0 cm Height 69 in Weight 94.7 kg Weight 208.778 lb BMI 31.28 What to do next Scheduled Follow-Up Appointments Monday 8:45 AM EDT With: SANGEETA DHALIWAL, Jim More Where: [facility] [address] [address]- Medications What How Much When Why Instructions Unchanged albuterol (albuterol 0.083% Inh Anne 3 mL) 3 Milliliter Nebulized inhalation (aerosol) Every 6 hours Unchanged alfuzosin (alfuzosin 10 mg ER Tab) 1 Tablets By Mouth Every day Unchanged amoxicillin-clavulanat e (amoxicillin-clavulana te 875 mg-125 mg Tab) 1 Tablets By Mouth Every 12 hours Duration: 10 Days Pickup at [facility] #[id number] Unchanged aspirin 81 Milligram Chewed Every day Unchanged budesonide (Pulmicort Flexhaler 90 mcg/ inh inhalation powder) 1 Inhalation Inhalation 2 times a day Wellness examination Chronic obstructive pulmonary disease Fatigue Hypertension Prostate cancer screening BMI 31.0-31.9,adult Non-smoker Unchanged carvedilol (carvedilol 12.5 mg Tab) 1 Tablets By Mouth 2 times a day Unchanged cholecalciferol (D3 1000 intl units (25 mcg) oral tablet) 1 Tablets By Mouth Every day Unchanged esomeprazole (Nexium 40 mg Cap-EC) 1 Capsules By Mouth Every day Abdominal pain Pancreas cyst Unchanged Misc Prescription (CPap supplies) See instructions Use for Sleep apnea Unchanged rosuvastatin (rosuvastatin 20 mg Tab) 1 Tablets By Mouth Every day [facility]acy Information [id number]: [id number] [place], [place] [id number] [phone] Medications and Immunizations Administered Given Kenalog-40, 60 mg, IntraMuscular. For: Allergies No Known Medication Allergies Problems Ongoing - Any problem that you are currently receiving treatment for. Abdominal pain Benign prostatic hypertrophy with outflow obstruction BMI 31.0-31.9,adult Cholelithiases Chronic fatigue syndrome Chronic obstructive pulmonary disease Coronary artery disease Cough Elevated PSA Emphysema of lung Fatigue Fluid level behind tympanic membrane of both ears Gallstones Gross hematuria Headache Hematochezia Hyperlipidemia Hypertension Interstitial pulmonary fibrosis Legionnaire's disease Low testosterone Nocturia Pancreas cyst Prostate cancer screening Rectal bleeding Right otitis media Sinusitis Sleep apnea Sore throat Urging to urinate Weak urinary stream Wellness examination Historical - Any problem that you are no longer receiving treatment for. Anticoagulated Patient Survey You may receive a survey via text or e-mail asking about your office visit. Please share your experience with us by completing your survey. We appreciate your feedback and thank you for choosing us for your care. Normal [facility] Family Medicine Office/Clini c Noteon 10-07-2024 Family Medicine Office/Clinic Note Family Medicine Office/Clinic Note HPI Staff Maximino is a 69 year old female presenting with coughing and congestion Symptoms started- started a month ago... the last couple weeks has been getting worse Headache- lightheaded Body aches- sometimes Earache- no Runny/stuffy nose- yes goes back and forth runny to stuffy Problem with Smell- no Problem with Taste- no Sore throat- off and on Cough- YES Scratchy tickly throat- no Chest symptoms- yes MARQUEZ- yes Orthopnea- Lung Hx asthma, bronchitis, chest colds- pulmonary lung disease Fever/chills- chills sometimes GI symptoms- COVID exposure- no Tried: OTC cold pills Headache after he sneezes COVID tested IO- NEG FLU tested today IO- NEG History of Present Illness pt presents today with URI symptoms Review of Systems PHQ Score Initial Depression Screen Score: 1 SCORE Physical Exam Vitals & Measurements T: 36.8 ???C(Oral) HR: 84(Peripheral) RR: 20 BP: 132/84 SpO2: 88% HT: 69 in HT: 174.0 cm WT: 94.7 kg WT: 208.778 lb BMI: 31.28 General: alert, no acute distress ENMT: oral mucosa moist, no pharyngeal erythema or exudate, SHIRA TM bulging with fluid Cardiovascular: regular rate and rhythm, normal peripheral perfusion Respiratory: Lungs CTA, respirations non labored Extremities: no deformity, no trauma Neurological: oriented x 4, LOC appropriate for age, CN II-XII intact, motor strength equal & normal bilaterally, speech normal Assessment/Plan 1. Sinusitis (J32.9: Chronic sinusitis, unspecified) nasal congestion, sinus tenderness. will treat with augmentin 2. Fluid level behind tympanic membrane of both ears (H65.93: Unspecified nonsuppurative otitis media, bilateral) SHIRA TM bulging with fluid. will given 60mg kenalog in office today 3. Non-smoker (Z78.9: Other specified health status) continue not smoking 4. BMI 31.0-31.9,adult (Z68.31: Body mass index [BMI] 31.0-31.9, adult) BMI education 5. Exogenous obesity (E66.09: Other obesity due to excess calories) see above Orders: amoxicillin-clavulanat e, 1 tab(s), Oral, q12hr for 10 day(s), 20 tab(s), Refill(s) 0, [facility] #[id number], 174, cm, 10/07/24 15:26:00 EST, Height/Length Dosing, 94.7, kg, 10/07/24 15:26:00 EST, Weight Dosing Follow-up No qualifying data available [...] cancer screening Rectal bleeding Right otitis media Sinusitis Sleep apnea Sore throat Urging to urinate [...] mg= 1 tab(s), Oral, Daily, 11 refills amoxicillin-clavulanat e 875 mg-125 mg Tab, 1 tab(s), Oral, q12hr aspirin, 81 mg, Chewed, Daily carvedilol 12.5 [...] History Alcohol - Denies Alcohol Use, 04/25/2019 Never., 10/07/2024 Substance Abuse - Denies Substance Abuse, 11/22/2022 Never., 10/07/2024 Tobacco Never (less than 100 in lifetime) Tobacco Use:., 10/07/2024 Never (less than 100 in lifetime) Tobacco Use:., 10/07/2024 Family History Anxiety: Mother. Heart disease: Sister. Hypertension: Mother. Pancreatic cancer: Mother. Immunizations Vaccine Date Status influenza virus vaccine, inactivated 06/09/2022 Recorded SARS-CoV-2 (COVID-19) mRNA BNT-162b2 vax 09/21/2021 Recorded SARS-CoV-2 (COVID-19) mRNA BNT-162b2 vax 01/05/2021 Recorded SARS-CoV-2 (COVID-19) mRNA BNT-162b2 vax 12/14/2020 Recorded Normal [facility] Comment on above: Result Comment: Elec tronically Signed By: Mary Ellen Dela Cruz.dipti\Date and Time Signed: 10/07/24 15:38 EST Office Visiton 05-27-2024 Follow-up visit [id number] Padmini Clarke 1955 M Date Provider Department Center 05/27/2024 [facility]8-KAT VASQUEZ CARD [facility] Family History Problem Relation Age of Onset Hypertension Mother Cancer Mother Family Status - Relation Status Age at Mother Level of Service:97042 [place] OFFICE/OUTPATIENT ESTABLISHED MOD MDM 30 MIN Normal [facility] Surgical Pathologyon 024 Surgical Pathology Normal [facility] Comment on above: Result Comment: [facility] [address] [place] [address] Surgical Pathology Consultation Patient Name:MAXIMINO CLARKE:1955 (Age: 69)Gender:MTaken:04/30/2024eported:05/02/2024hysician(s):Surinder Escalona MD ( )Copy To: Rec. #:[id number]: #[id number] Final Pathologic Diagnosis Gastric biopsy: Mild chronic gastritis with intestinal metaplasia present. Negative for helicobacter organisms on routine H&E examination Negative for dysplasia or malignancy. Report Electronically Signed Out st05/02/2024Lorena Bowles MD Interpretation performed at [facility] DHALIW[facility], [address] [place] [id number], License number: [id number]. Clinical History Pancreatic cyst, abdominal pain. 1. H pylori screen Gross Description Received in formalin, labeled VINCE, gastric biopsy are multiple pink-del angel soft tissue fragments aggregating 1.3 x 0.5 x 0.1 cm. The specimen is filtered and entirely submitted in one cassette. (1, ns, [id number] m7, ) MW mxw/04/30/2024GR Specimen(s) Received Gastric biopsy Fee Codes(s): 1; 47583 36on 04-15-2024 SARS-CoV-2 (COVID-19) RNA NIEVES+probe Ql (Unsp spec) 04/15/24@1000 Patients called stating that Maximino tested positive for COVID today, per [facility] policy he needs to wait 10 days from his positive test to be scheduled. Patient is rescheduled for 04/30/24 arriving at 0945 for a 1145 procedure with a PAT call on 04/23/24 in the am. [facility] 36on 04-09-2024 36 Scheduled EGD/EUS/Pancreatic Cyst/Abd Pain 04/19/24 @1200, [facility], Dr. Escalona, PAT ph: 04/12/24 @1130, #[id number], Ref Dr. Ryan in Media 04/03/24. [facility] Telephoneon 04-09-2024 Telephone [id number] Padmini Clarke 1955 M Date Provider Department Center 04/09/2024 [id number] VÁZQUEZ [facility] GI [facility] Family History Problem Relation Age of Onset Hypertension Mother Cancer Mother Family Status - Relation Status Age at Mother [facility] Gastroenterology Office/Clin ic Noteon 04-01-2024 Gastroenterology Office/Clinic [...] 01/05/2021 R (more content not included)... Normal [facility] Comment on above: Result Comment: Elec tronically Signed By: Connor DHALIWAL, Letty Argueta\.br\Date and Time Signed: 04/01/24 10:29 EDT\.br\Electronically Co-Signed By: Liliana Garcia MA\.br\Date and Time Co-Signed: 04/01/24 10:24 EDT Physician Referralon 024 Physician Referral [id number]. 00TIFF Normal [facility] Physician Referralon 024 Physician Referral [id number] 05 [id number]#1. 00TIFF Normal [facility] RAD - CT Reporton 01-26-2024 RAD - CT Report [id number]#1.0 0TIFF [facility] Physician Orderon 01-03-2024 Physician Order [id number]#1.0 0TIFF [facility] Ambulatory Visit Summaryon 0 01-02-2024 Ambulatory Visit Summary JADON CLARKEBRUNA Reyes :1955 Visit Date:01/02/2024 Ambulatory Visit Instructions Your Diagnosis BMI 30.0-30.9,adult Your Care Team Attending Physician - Mary Ellen Dela Cruz Primary Care Physician - Mary Ellen Dela Cruz This Is Your Medications List albuterol (albuterol 0.083% Inh Anne 3 mL) alfuzosin (alfuzosin 10 mg ER Tab) amoxicillin-clavulanat e (Augmentin 875 mg oral tablet) aspirin budesonide [...] DHALIWAL, Jim More Where: [facility] Family Medicine Office/Clini c Noteon 01-02-2024 Family [...] (COVID-19) mRNA BNT-162b2 vax 12/14/2020 Recorded Normal [facility] Comment on above: Result Comment: Elec tronically Signed By: Mary Ellen Dela Cruz\.br\Date and Time Signed: 01/02/24 11:42 EDT Physician Orderon 01-02-2024 Physician Order [id number]#1.0 0TIFF Normal [facility] Ambulatory Visit Summaryon 0 12-28-2023 Ambulatory Visit Summary MAXIMINO CLARKE Amy :1955 Visit Date:12/28/2023 Ambulatory Visit Instructions Your Diagnosis Sore throat Fluid level behind tympanic membrane of both ears BMI 30.0-30.9,adult Non-smoker Hypertension Your Care Team Attending Physician - Mary Ellen Dela Cruz Primary Care Physician - Mary Ellen Dela Cruz This Is Your Medications List albuterol (albuterol 0.083% Inh Anne 3 mL) alfuzosin (alfuzosin 10 mg ER Tab) amoxicillin-clavulanat e (Augmentin 875 mg oral tablet) aspirin budesonide [...] Follow-Up Appointments Monday 8:45 AM EDT With: Jim BAH MD [facility] 12-28-2023 Consent [id number]#1.0 0TIFF Normal [facility] Family Medicine Office/Clini c Noteon 12-28-2023 [...] [BMI] 30.0-30.9, adult) bmi education complete Ordered: amoxicillin-clavulanat e, = 1 tab(s), Oral, q12hr, X 7 day(s), # 14 tab(s), Refills(s) 0, Pharmacy: [facility] #[id number], 174, cm, 12/28/23 8:31:00 EDT, Height/Length Dosing, 93.3, kg, 12/28/23 8:31:00 EDT, Weight Dosing 4. Non-smoker (Z78.9: Other specified health status) continue not smoking Ordered: amoxicillin-clavulanat e, = 1 tab(s), Oral, q12hr, X 7 day(s), # 14 tab(s), Refills(s) 0, Pharmacy: [facility] #[id number], 174, cm, 12/28/23 8:31:00 EDT, Height/Length Dosing, 93.3, kg, 12/28/23 8:31:00 EDT, Weight Dosing 5. Hypertension (I10: Essential (primary) hypertension) BP continues to run high. director supplier quality started him on carvedilol we will increase that dose today. he does not have any follow up appointments scheduled with cardiology and they are leaving on a cruise next week. RTC 4 weeks for BP check. Orders: carvedilol, 12.5 mg = 1 tab(s), Oral, BID, # 60 tab(s), Refills(s) 0, Pharmacy: [facility] #[id number], 174, cm, 12/28/23 8:31:00 EDT, Height/Length Dosing, [...] Recorded SARS (more content not included)... Normal [facility] Comment on above: Result Comment: Elec tronically Signed By: Mary Ellen Dela Cruz\.br\Date and Time Signed: 12/28/23 08:48 EDT Office Visiton 12-08-2023 Follow-up visit [id number] Padmini Clarke E 1955 M Date Provider Department Center 12/08/2023 3848-KAT VASQUEZ [facility] Family History Problem Relation Age of Onset Hypertension Mother Cancer Mother Family Status - Relation Status Age at Mother Level of Service:12543 [place] OFFICE/OUTPATIENT ESTABLISHED MOD MDM 30 MIN Reason for Visit and Comments: Follow-up [268510] [facility] Ambulatory Visit Summaryon 0 12-04-2023 Ambulatory Visit Summary MAXIMINO CLARKE Amy :1955 Visit Date:12/04/2023 Ambulatory Visit Instructions Your [...] DHALIWAL, Jim More Where: [facility] Patient Educationon 12-04-19 24 Patient Education Urology Benign Prostatic Hyperplasia Benign [...] Follow these instructions at home: ? Take ejzz-dys-zhhygny and prescription medicines only as told by [...] the medicine (more content not included)... Normal [facility] Urology Office/Clinic Noteon 03-04-2024 Urology Office/Clinic Note Chief Complaint elevated PSA [...] In 1 year [facility] [address] [phone] Additional Instructions: with PSA Patient Education Benign [...] mcg/inh i (more content not included)... Normal [facility] Comment on above: Result Comment: Elec tronically Signed By: Jim BAH MD R\.br\Date and Time Signed: 12/04/23 09:47 EST\.br\Electronically Co-Signed By: Iris Robledo\.br\Date and Time Co-Signed: 12/04/23 09:45 EST Office Visiton 10-06-2023 Follow-up visit [id number] Padmini Clarke 1955 M Date Provider Department Center 10/06/2023 3848-KAT VASQUEZ [facility] Family History Problem Relation Age of Onset Hypertension Mother Cancer Mother Family Status - Relation Status Age at Mother Level of Service:54006 [place] OFFICE/OUTPATIENT NEW MODERATE MDM 45 MINUTES Normal [facility] CHEMISTRYOrdered By: SYSTEM SYSTEM on 07-14-2023 Albumin [Mass/Vol] 4.2 g/dL Normal 3.3 - 5.0 gm/dL [facility] Albumin/Globulin [Mass ratio] 1.2 {ratio} Normal 1.1 - 2.2 [facility] ALP [Catalytic activity/Vol] 75 [iU]/d Normal 21 - 98 Int._Unit/L [facility] ALT No additional P-5'-P [Catalytic activity/Vol] 28 [iU]/d Normal 6 - 46 Int._Unit/L [facility] Anion gap [Moles/Vol] 11 mmol/L Normal 6 - 16 mEq/L [facility] AST [Catalytic activity/Vol] 30 [iU]/d Normal 5 - 43 Int._Unit/L [facility] Bilirubin [Mass/Vol] 0.4 mg/dL Normal 0.0 - 1 .1 mg/dL [facility] Calcium [Mass/Vol] 10.2 mg/dL Normal 8.9 - 11. 1 mg/dL [facility] Chloride [Moles/Vol] 113 mmol/L High 101 - 1 11 mmol/L [facility] Cholesterol [Mass/Vol] 191 mg/dL [...] (S/P/Bld) [Vol rate/Area] 51 mL/min/1.73 m2 Low >=59mL/min/1 .73 m2 [facility] Chem S Comment on above: Interpretive Data: C hronic kidney disease could be indicated at eGFR's of less than 60 mL/min/1.73m2. Kidney failure is indicated at less than 15 mL/min/1.73m2. Globulin (S) [Mass/Vol] 3.6 g/dL Normal 1.4 - 4.0 gm/dL [facility] Glucose [Mass/Vol] 96 mg/dL Normal 55 - 199 mg/dL [facility] Comment on above: Interpretive Data: I [...] for this result was chemiluminescence using [employer] PSA reagent. Protein [Mass/Vol] 7.8 g/dL Normal 6.0 - 7.8 gm/dL [facility] Sodium [Moles/Vol] 148 mmol/L High 135 - 145 mmol/L [facility] Triglyceride [Mass/Vol] 230 mg/dL High <=149mg/dL [facility] TSH Qn 0.60 m[IU]/L Normal 0.34 - 5.60 mcIU/mL [facility] Urea nitrogen [Mass/Vol] 14 mg/dL Normal 5 - 21 mg/dL [facility] Urea nitrogen/Creatinine [Mass ratio] 9 mg/mg Low 10 - 20 [facility] HEMATOLOGYOrdered By: SYSTEM SYSTEM on 07-14-2023 Basophils/100 WBC (Bld) 0.7 % Normal 0.0 - 2.0 % [facility]eAutoSS Basophils/Leukocytes Auto (Bld) [Pure # fraction] 0.0 E9/L Normal 0.0 - 0.2 E9/L [facility]eAutoSS Eosinophils/100 WBC (Bld) 1.3 % Normal 0.0 - 8.0 % [facility]eAutoSS Eosinophils/Leukocyte s Auto (Bld) [Pure # fraction] 0.1 E9/L Normal 0.0 - 0.5 E9/L [facility] Lymphocytes/100 WBC (Bld) 20.2 % Normal 14.0 - 50.0 % [facility]eAutoSS Lymphocytes/Leukocyte s Auto (Bld) [Pure # fraction] 1.4 E9/L Normal 1.0 - 4.0 E9/L [facility]eAutoSS Monocytes/100 WBC (Bld) 12.3 % Normal 4.0 - 14.0 % [facility] HemeAutoSS Monocytes/Leukocytes Auto (Bld) [Pure # fraction] 0.8 E9/L Normal 0.2 - 1.0 E9/L [facility]SS Neutrophils/100 WBC (Bld) 65.5 % Normal 36.0 - 75.0 % [facility]eAutoSS Neutrophils/Leukocyte s Auto (Bld) [Pure # fraction] 4.5 E9/L Normal 2.0 - 7.5 E9/L [facility] HEMATOLOGYOrdered By: Endy Villatoro on 07-14-2023 [...] 11.2 fL High 6.4 - 10.8 fL [facility] Platelets (Bld) [#/Vol] 105.0 E9/L Low 150.0 - 500.0 E9/L [facility] RBC (Bld) [#/Vol] 5.2 E12/L Normal 4.3 - 5.9 E12/L [facility] WBC corrected for nucl RBC Auto (Bld) [#/Vol] 6.8 E9/L Normal 4.0 - 11.0 E9/L [facility] CBC AUTO DIFFon 10-11-2022 BASO # 0.0 103/ul Normal 0.0-0.1 [facility] Comment on above: Performed By: #### C BC #### [facility] [address] [place] [address] Dr. Anup Paez Basophils/100 WBC (Bld) 0.4 % Normal 0.2-2.0 [facility] Comment on above: Performed By: #### C BC #### [facility] [address] [place], [place] [address] Dr. Anup Paez EO # 0.0 103/ul Normal 0.0-0.7 [facility] Comment on above: Performed By: #### C BC #### [facility] [address] [place] [address] Dr. Anup Paez Eosinophils/100 WBC (Bld) 0.1 % Critically low 0.9-7.0 [facility] Comment on above: Performed By: #### C BC #### [facility] [address] [place] [address] Dr. Anup Paez Erythrocyte distribution width (RBC) [Ratio] 13.2 % Normal 11.0-15.0 [facility] Comment on above: Performed By: #### C BC #### [facility] [address] [place] [address] Dr. Anup Paez Hematocrit (Bld) [Volume fraction] 43.2 % Normal 42.0-54.0 [facility] Comment on above: Performed By: #### C BC #### [facility] [address] [place] [address] Dr. Anup Paez Hemoglobin (Bld) [Mass/Vol] 14.7 g/dL Normal 14.0-18.0 [facility] Comment on above: Performed By: #### C BC #### [facility] [address] [place] [address] Dr. Anup Paez IG # 0.03 10e3/ul Normal 0.00-0.03 [facility] Comment on above: Performed By: #### C BC #### [facility] [address] [place] [address] Dr. Anup Paez IG % 0.4 % Normal 0.0-0.5 [facility] Comment on above: Performed By: #### C BC #### [facility] [address] [place] [address] Dr. Anup Paez LYMPH # 1.2 103/ul Normal 1.2-3.8 [facility] Comment on above: Performed By: #### C BC #### [facility] [address] [place] [address] Dr. Anup Paez Lymphocytes/100 WBC (Bld) 14.8 % Critically low 20.5-60.0 [facility] Comment on above: Performed By: #### C BC #### [facility] [address] [place] [address] Dr. Anup Paez MANUAL DIFF REQ NO Normal [facility] Comment on above: Performed By: #### C BC #### [facility] [address] [place] [address] Dr. Anup Paez MCH (RBC) [Entitic mass] 30.3 pg Normal 25.9-34.0 [facility] Comment on above: Performed By: #### C BC #### [facility] [address] [place] [address] Dr. Anup Paez MCHC (RBC) [Mass/Vol] 34.0 g/dL Normal 29.9-35.2 [facility] Comment on above: Performed By: #### C BC #### [facility] [address] [place] [address] Dr. Anup Paez MCV (RBC) [Entitic vol] 89.1 fL Normal 80.0-94.0 [facility] Comment on above: Performed By: #### C BC #### [facility] [address] [place] [address] Dr. Anup Paez MONO # 0.5 103/ul Normal 0.3-0.8 [facility] Comment on above: Performed By: #### C BC #### [facility] [address] [place] [address] Dr. Anup Paez Monocytes/100 WBC (Bld) 5.5 % Normal 1.7-12.0 [facility] Comment on above: Performed By: #### C BC #### [facility] [address] [place] [address] Dr. Anup Paez NEUT # 6.6 103/ul Critically high 1.4-6.5 [facility] Comment on above: Performed By: #### C BC #### [facility] [address] [place] [address] Dr. Anup Paez Neutrophils/100 WBC (Bld) 78.8 % Critically high 43.0-75.0 [facility] Comment on above: Performed By: #### C BC #### [facility] [address] [address] [address] Anup Paez Platelet mean volume (Bld) [Entitic vol] 11.9 fL Normal 9.5-13.5 [facility] Comment on above: Performed By: #### C BC #### [facility] [address] [address] [address] Anup Paez PLT 140 103/ul Critically low 150-450 [facility] Comment on above: Performed By: #### C BC #### [facility] [address] [address] [address] Anup Paez RBC 4.85 106/ul Normal 4.70-6.10 [facility] Comment on above: Performed By: #### C BC #### [facility] [address] [place] [address] Dr. Anup Paez WBC 8.3 103/ul Normal 4.0-11.0 [facility] Comment on above: Performed By: #### C BC #### [facility] [address] [place] [address] Dr. Anup Paez FREE T3on 10-11-2022 FREE T3 2.36 pg/mlL Normal 2.18-3.98 [facility] Comment on above: Performed By: #### F T3 #### [facility] [address] [place] [address] Dr. Anup Paez FREE T4on 10-11-2022 Free T4 [Mass/Vol] 0.97 ng/dL Normal 0.76-1.46 [facility] Comment on above: Performed By: #### F T4 #### [facility] [address] [address] [address] Anup Paez TSHon 10-11-2022 TSH 0.231 uIU/mL Critically low 0.358-3.740 [facility] Comment on above: Performed By: #### T SH #### [facility] [address] [place] [address] Dr. Anup Paez CBC AUTO DIFFon 02-19-2022 BASO # 0.1 103/ul Normal 0.0-0.1 [facility] Comment on above: Performed By: #### C BC #### [facility] [address] [place] [address] Dr. Anup Paez Basophils/100 WBC (Bld) 1.1 % Normal 0.2-2.0 [facility] Comment on above: Performed By: #### C BC #### [facility] [address] [place] [address] Dr. Anup Paez EO # 0.2 103/ul Normal 0.0-0.7 [facility] Comment on above: Performed By: #### C BC #### [facility] [address] [place] [address] Dr. Anup Paez Eosinophils/100 WBC (Bld) 4.4 % Normal 0.9-7.0 [facility] Comment on above: Performed By: #### C BC #### [facility] [address] [place] [address] Dr. Anup Paez Erythrocyte distribution width (RBC) [Ratio] 12.9 % Normal 11.0-15.0 [facility] Comment on above: Performed By: #### C BC #### [facility] [address] [place] [address] Dr. Anup Paez Hematocrit (Bld) [Volume fraction] 44.4 % Normal 42.0-54.0 [facility] Comment on above: Performed By: #### C BC #### [facility] [address] [place] [address] Dr. Anup Paez Hemoglobin (Bld) [Mass/Vol] 14.4 g/dL Normal 14.0-18.0 [facility] Comment on above: Performed By: #### C BC #### [facility] [address] [place] [address] Dr. Anup Paez IG # 0.01 10e3/ul Normal 0.00-0.03 [facility] Comment on above: Performed By: #### C BC #### [facility] [address] [place] [address] Dr. Anup Paez IG % 0.2 % Normal 0.0-0.5 [facility] Comment on above: Performed By: #### C BC #### [facility] [address] [place] [address] Dr. Anup Paez LYMPH # 1.6 103/ul Normal 1.2-3.8 [facility] Comment on above: Performed By: #### C BC #### [facility] [address] [place] [address] Dr. Anup Paez Lymphocytes/100 WBC (Bld) 35.8 % Normal 20.5-60.0 [facility] Comment on above: Performed By: #### C BC #### [facility] [address] [place] [address] Dr. Anup Paez MANUAL DIFF REQ NO Normal [facility] Comment on above: Performed By: #### C BC #### [facility] [address] [place] [address] Dr. Anup Paez MCH (RBC) [Entitic mass] 30.1 pg Normal 25.9-34.0 [facility] Comment on above: Performed By: #### C BC #### [facility] [address] [place] [address] Dr. Anup Paez MCHC (RBC) [Mass/Vol] 32.4 g/dL Normal 29.9-35.2 [facility] Comment on above: Performed By: #### C BC #### [facility] [address] [place] [address] Dr. Anup Paez MCV (RBC) [Entitic vol] 92.7 fL Normal 80.0-94.0 [facility] Comment on above: Performed By: #### C BC #### [facility] [address] [place] [address] Dr. Anup Paez MONO # 0.5 103/ul Normal 0.3-0.8 [facility] Comment on above: Performed By: #### C BC #### [facility] [address] [place] [address] Dr. Anup Paez Monocytes/100 WBC (Bld) 11.6 % Normal 1.7-12.0 [facility] Comment on above: Performed By: #### C BC #### [facility] [address] [place] [address] Dr. Anup Paez NEUT # 2.1 103/ul Normal 1.4-6.5 [facility] Comment on above: Performed By: #### C BC #### [facility] [address] [address] [address] Anup Paez Neutrophils/100 WBC (Bld) 46.9 % Normal 43.0-75.0 [facility] Comment on above: Performed By: #### C BC #### [facility] [address] [place] [address] Dr. Anup Paez Platelet mean volume (Bld) [Entitic vol] 12.0 fL Normal 9.5-13.5 [facility] Comment on above: Performed By: #### C BC #### [facility] [address] [place] [address] Dr. Anup Peaz PLT 107 103/ul Critically low 150-450 [facility] Comment on above: Performed By: #### C BC #### [facility] [address] [place] [address] Dr. Anup Paez RBC 4.79 106/ul Normal 4.70-6.10 [facility] Comment on above: Performed By: #### C BC #### [facility] [address] [place] [address] Dr. Anup Paez WBC 4.6 103/ul Normal 4.0-11.0 [facility] Comment on above: Performed By: #### C BC #### [facility] [address] [place] [address] Dr. Anpu Paez LIPID PROFILEon 02-19-2022 CHOL-HDL RATIO NORM SEE BELOW Normal [facility] Comment on above: Result Comment: 3.3 - 4.4 LOW RISK 4.4 - 7.1 AVERAGE RISK 7.1 - 11.0 MODERATE RISK >11.0 HIGH RISK Performed By: #### C MP, LIPID #### [facility] [address] [place] [address] Dr. Anup Paez Cholesterol [Mass/Vol] 120 mg/dL Normal <=200 [facility] Comment on above: Performed By: #### C MP, LIPID #### [facility] [address] [address] [address] Anup Paez Cholesterol in HDL [Mass/Vol] 33 mg/dL Critically low 40-60 [facility] Comment on above: Performed By: #### C MP, LIPID #### [facility] [address] [address] [address] Anup Paez Cholesterol in LDL [Mass/Vol] 68.2 mg/dL Normal [facility] Comment on above: Performed By: #### C MP, LIPID #### [facility] [address] [address] [address] Anup Paez Cholesterol.total/Cho lesterol in HDL [Mass ratio] 3.6 {ratio} Normal [facility] Comment on above: Performed By: #### C MP, LIPID #### [facility] [address] [address] [address] Anup Paez HDL NORMAL > or = 60 mg/dl - LO W CARDIOVASCULAR RISK <40 mg/dl - HIGH CARDIOVASCULAR RISK Normal [facility] Comment on above: Performed By: #### C MP, LIPID #### [facility] [address] [address] [address] Anup Paez LDL CALC NORMAL SEE BELOW Normal [facility] Comment on above: Result Comment: <100 mg/dl OPTIMAL 100 - 129 mg/dl NEAR OR ABOVE OPTIMAL 130 - 159 mg/dl BORDERLINE HIGH 160 - 189 mg/dl HIGH >190 mg/dl VERY HIGH Performed By: #### C MP, LIPID #### [facility] [address] [address] [address] Anup Paez Triglyceride [Mass/Vol] 94 mg/dL Normal <=150 [facility] Comment on above: Performed By: #### C MP, LIPID #### [facility] [address] [address] [address] Anup Paez VLDL CALC 18.8 mg/dL Normal [facility] Comment on above: Performed By: #### C MP, LIPID #### [facility] [address] [address] [address] Anup Paez PROF 14(COMP METB)on 022 Albumin [Mass/Vol] 3.6 g/dL Normal 3.4-5.0 [facility] Comment on above: Performed By: #### C MP, LIPID #### [facility] [address] [address] [address] Anup Paez Albumin/Globulin [Mass ratio] 1.0 {ratio} Normal [facility] Comment on above: Performed By: #### C MP, LIPID #### [facility] [address] [address] [address] Anup Paez ALP [Catalytic activity/Vol] 97 U/L Normal 46-116 [facility] Comment on above: Performed By: #### C MP, LIPID #### [facility] [address] [address] [address] Anup Paez ALT [Catalytic activity/Vol] 33 U/L Normal 16-63 [facility] Comment on above: Performed By: #### C MP, LIPID #### [facility] [address] [address] [address] Anup Paez Anion gap [Moles/Vol] 11.5 mmol/L Normal [facility] Comment on above: Performed By: #### C MP, LIPID #### [facility] [address] [address] [address] Anup Paez AST [Catalytic activity/Vol] 21 U/L Normal 15-37 [facility] Comment on above: Performed By: #### C MP, LIPID #### [facility] [address] [address] [address] Anup Paez Bilirubin [Mass/Vol] 0.4 mg/dL Normal 0.2-1.0 [facility] Comment on above: Performed By: #### C MP, LIPID #### [facility] [address] [address] [address] Anup Paez Calcium [Mass/Vol] 8.5 mg/dL Normal 8.5-10.1 [facility] Comment on above: Performed By: #### C MP, LIPID #### [facility] [address] [address] [address] Anup Paez Chloride [Moles/Vol] 106 mmol/L Normal 98-107 [facility] Comment on above: Performed By: #### C MP, LIPID #### [facility] [address] [address] [address] Anup Paez CO2 [Moles/Vol] 26.3 mmol/L Normal 21.0-32.0 [facility] Comment on above: Performed By: #### C MP, LIPID #### [facility] [address] [address] [address] Anup Paez Creatinine [Mass/Vol] 1.26 mg/dL Normal 0.70-1.30 [facility] Comment on above: Performed By: #### C MP, LIPID #### [facility] [address] [address] [address] Anup Paez EGFR-AF MONEGASQUE >60 Normal >=60 [facility] Comment on above: Performed By: #### C MP, LIPID #### [facility] [address] [address] [address] Anup Paez EGFR-NON AF MONEGASQUE 57 mL/min/1.73m2 Critically low >=60 [facility] Comment on above: Performed By: #### C MP, LIPID #### [facility] [address] [address] [address] Anup Paez Globulin (S) [Mass/Vol] 3.6 g/dL Normal [facility] Comment on above: Performed By: #### C MP, LIPID #### [facility] [address] [address] [address] Anup Paez Glucose [Mass/Vol] 95 mg/dL Normal 74-106 [facility] Comment on above: Performed By: #### C MP, LIPID #### [facility] [address] [address] [address] Anup Paez Potassium [Moles/Vol] 3.8 mmol/L Normal 3.5-5.1 [facility] Comment on above: Performed By: #### C MP, LIPID #### [facility] [address] [address] [address] Anup Paez Protein [Mass/Vol] 7.2 g/dL Normal 6.4-8.2 [facility] Comment on above: Performed By: #### C MP, LIPID #### [facility] [address] [address] [address] Anup Paez Sodium [Moles/Vol] 140 mmol/L Normal 136-145 [facility] Comment on above: Performed By: #### C MP, LIPID #### [facility] [address] [address] [address] Anup Paez Urea nitrogen [Mass/Vol] 16.0 mg/dL Normal 7.0-18.0 [facility] Comment on above: Performed By: #### C MP, LIPID #### [facility] [address] [address] [address] Anup Paez Urea nitrogen/Creatinine [Mass ratio] 12.7 mg/mg Normal [facility] Comment on above: Performed By: #### C MP, LIPID #### [facility] [address] [address] [address] Anup Paez PSA Total (Not a Screen)on 0 04-01-2021 PSA Total (Not a Screen) 0.620 ng/mL Normal 0.000-4.000 [facility] Comment on above: Result Comment: PERF ORMED BY: [place] [address] PATHOLOGIST PEDIATRICS TEACHER MARITZA MONTANO M.D. Performed By: #### P SATOTAL #### [place] [address] [place] XR ankle LT min 3V*on 2020 XR ankle LT min 3V* [facility] [place] [address] XRay Report Signed Patient: Maximino Clarke MR#: [id number] : 1955 Acct:[id number] Age/Sex: 65 / M ADM Date: 01/11/21 Loc: XDUCLY Room: Type: [facility] Attending Dr: Ailin PARRA Ordering Provider: AILIN [...] Dinora Brink M.D.01/11/2021 12:35 PM Dictation Location: [place] [address] Transcribed By: [facility] 01/11/21 1235 Dictated By: Dinora Brink MD 01/11/21 1234 Signed By: 01/11/21 1235 [facility] Pulmonary Functionon 11-22-2 020 Pulmonary Function MR #: [id number] [facility] PT. Name: Maximino Clarke Date: [...] Scruggs MD Date Trans: 08/23/2020 05:28 P/ [id number]:[id number] cc: Asha Blandon M.D. [address] [place] [phone] Normal [facility] ARTERIAL BLOOD GAS W/COOXon 08-14-2020 BASE EXCESS 0 mmol/L Normal -2-3 [facility] Comment on above: Performed By: #### 4 0055 #### [facility] [address] [place] [address], [facility] COHB 1.2 % Normal 0.0-1.5 [facility] Comment on above: Performed By: #### 4 0055 #### [facility] [address] [place] [address], [place] [employer] ROOM AIR Normal [facility] Comment on above: Performed By: #### 4 0055 #### [facility] [address] [place] [address], [place] FIO2 0 % Normal [facility] Comment on above: Performed By: #### 4 0055 #### [facility] [address] [place] [address], [facility] HCO3 (Bld) [Moles/Vol] 23 mmol/L Normal 21-28 [facility] Comment on above: Performed By: #### 4 0055 #### [facility] [address] [place] [address], [facility] METHB 1.0 % Normal 0.0-1.5 [facility] Comment on above: Performed By: #### 4 0055 #### [facility] [address] [place] [address], [facility] Oxygen (Bld) [Partial pressure] 88 mm[Hg] Normal 83-108 [facility] Comment on above: Performed By: #### 4 0055 #### [facility] [address] [place] [address], [facility] Oxygen saturation in Blood 95.5 % Normal 94.0-97.0 [facility] Comment on above: Performed By: #### 4 0055 #### [facility] [address] [place] [address], [facility] PCO2 32 mmHg Low 35-45 [facility] Comment on above: Performed By: #### 4 0055 #### [facility] [address] [place] [address], [facility] pH (Bld) 7.46 [pH] High 7.35-7.45 [facility] Comment on above: Performed By: #### 4 0055 #### [facility] [address] [place] [address], [facility] THB 12.0 g/dL Normal 12.0-16.3 [facility] Comment on above: Performed By: #### 4 0055 #### [facility] [address] [place] [address], [facility] Pulmonary Functionon 020 Pulmonary Function MR #: [id number] [facility] PT. Name: Maximino Clarke Date: [...] Care and Sleep Medicine Date Dict: 05/23/2020/05:08 P/Soctt Scruggs MD Date Trans: 05/23/2020 05:08 P/ [id number] cc: Asha Bladnon M.D. [address] [place] [phone] Normal [facility] ARTERIAL BLOOD GAS W/COOXon 05-11-2020 BASE EXCESS -1 mmol/L Normal -2-3 [facility] Comment on above: Performed By: #### 4 0055 #### [facility] [address] [place] [address], [facility] COHB 1.5 % Normal 0.0-1.5 [facility] Comment on above: Performed By: #### 4 0055 #### [facility] [address] [place] [address], [facility] DELIVERY SYSTEMS RA Normal [facility] Comment on above: Performed By: #### 4 0055 #### [facility] [address] [facility] [place] [address], [facility] FIO2 0 % Normal [facility] Comment on above: Performed By: #### 4 0055 #### [facility] [address] [facility] [place] [address], [facility] HCO3 (Bld) [Moles/Vol] 22 mmol/L Normal 21-28 [facility] Comment on above: Performed By: #### 4 0055 #### [facility] [address] [facility] [place] [address], [facility] METHB 1.0 % Normal 0.0-1.5 [facility] Comment on above: Performed By: #### 4 0055 #### [facility] [address] [facility] [place] [address], [facility] Oxygen (Bld) [Partial pressure] 95 mm[Hg] Normal 83-108 [facility] Comment on above: Performed By: #### 4 0055 #### [facility] [address] [facility] [place] [address], [facility] Oxygen saturation in Blood 96.5 % Normal 94.0-97.0 [facility] Comment on above: Performed By: #### 4 0055 #### [facility] [address] [facility] [place] [address], [facility] PCO2 31 mmHg Low 35-45 [facility] Comment on above: Performed By: #### 4 0055 #### [facility] [address] [facility] pH (Bld) 7.46 [pH] High 7.35-7.45 [facility] Comment on above: Performed By: #### 4 0055 #### [address] THB 12.2 g/dL Normal 12.0-16.3 [facility] Comment on above: Performed By: #### 4 0055 #### [address] *SARS-CoV-2 COVID-19on 05-08 [id number] Not Detected Normal Not Detected [facility] Comment on above: Order Comment: The A ptima SARS-CoV-2 assay is a nucleic acid amplification test intended for the qualitative detection of RNA from SARS-CoV-2 isolated and purified from nasopharyngeal (SHAREBROKER),oropharyngeal (OP), nasal swab, sputum, and bronchoalveolar lavage (BAL) specimens from patients with signs and symptoms of infection who are suspected of COVID-19. Results are for the identification of SARS-CoV-2 RNA. The SARS-CoV-2 RNA is generally detectable during the acute phase of infection. The Aptima SARS-CoV-2 Assay on the [employer] system is intended for use by laboratory personnel specifically instructed and trained in the operation of the [employer] system. The Aptima SARS-CoV-2 assay is [...] information. Performed By: #### 3 1792 #### [address] CHEST HIGH RESOLUTION WIT HOUT CONTRASTon 04-22-2020 CT CHEST HIGH RESOLUTION WITHOUT CONTRAST [facility] Department of Radiology [address] [place] [phone] ======== Patient Name: MAXIMINO CLARKE : 1955 Sex: M Age: Race: Black Pt. Location: [facility] Patient Status: O Ordered Date: 03/20/2020 1:35:00 PM Completed Date: 04/22/2020 09:10 AM Requesting Provider: NICKY BORDEN Attending Provider: NICKY BORDEN Report Copy To: ASHA BLANDON Signs & Symptoms: J84.9 Interstitial pulmonary disease, unspecified I10 History: Zeptor Zafu pc with [facility] [address] ct chest. auth#[id number] valid 03/24-06/24/2020 phone: [phone] No to all COVID questions - jlr Comments: Protocols: inspiratory and excpiratory films for air trapping Exam: CT CHEST HIGH RESOLUTION WITHOUT CONTRAST ======== CT CHEST HIGH RESOLUTION WITHOUT CONTRAST 04/22/2020 [...] achievable Electronically signed: Ana Dhillon. Transcribed by: [email or web address], User Resident: Electronically Signed by: ANA DHILLON @ 04/22/2020 12:42 PM Normal [facility] Comment on above: Order Comment: Brian cols: inspiratory and excpiratory films for air trapping *SARS-CoV-2 COVID-19on 03-19 [id number] Not Detected Normal Not Detected [facility] Comment on above: Order Comment: The A ptima SARS-CoV-2 assay is a nucleic acid amplification test intended for the qualitative detection of RNA from SARS-CoV-2 isolated and purified from nasopharyngeal (SHAREBROKER), nasal and oropharyngeal (OP) swab specimens from patients with signs and symptoms of infection who are suspected of COVID-19. Results are for the identification of SARS-CoV-2 RNA. The SARS-CoV-2 RNA is generally detectable in nasopharyngeal and oropharyngeal swabs during the acute phase of infection. The Aptima SARS-CoV-2 Assay on the [employer] and [employer] Fusion system is intended for use by laboratory personnel specifically instructed and trained in the operation of the [place] [employer] system. The Aptima SARS-CoV-2 assay is [...] By: #### 3 [id number] #### [facility] [facility] [address] Pulmonary Functionon 03-10-2 020 Pulmonary Function MR #: [id number] [facility] PT. Name: Maximino Clarke Date: [...] + coving terminally( suggesting minor small airway aberration/obstruction ). SPIROMETRY: The forced vital capacity is 3.73 [...] Mcdermott MD Date Trans: 12/10/2019 12:08 Carlin/ DIMITRIOS_[id number] cc: Asha Blandon M.D. [address] [place], [place] [id number] [facility] Vital Signs Date Time Vital Sign Value Performing Clinician Facility 06-13-2024 09:49-0400 Body height 172.72 cm [facility] 06-13-2024 09:49-0400 Body mass index (BMI) [Ratio] 29.6 kg/m2 [facility] 06-13-2024 09:49-0400 Body temperature 96.7 [degF] [facility] 06-13-2024 09:49-0400 Body weight 88.5 kg [facility] 06-13-2024 09:49-0400 Diastolic blood pressure 91 mm[Hg] [facility] 06-13-2024 09:49-0400 Heart rate 54 /min [facility] 06-13-2024 09:49-0400 Respiratory rate 16 /min [facility] 06-13-2024 09:49-0400 SaO2% (BldA) [Mass fraction] 98 % [facility] 06-13-2024 09:49-0400 Systolic blood pressure 132 mm[Hg] [facility] 04-25-2024 09:50-0400 Body height 172.72 cm [facility] 04-25-2024 09:50-0400 Body mass index (BMI) [Ratio] 29.8 kg/m2 [facility] 04-25-2024 09:50-0400 Body temperature 97.3 [degF] [facility] 04-25-2024 09:50-0400 Body weight 89.07 kg [facility] 04-25-2024 09:50-0400 Diastolic blood pressure 90 mm[Hg] [facility] 04-25-2024 09:50-0400 Heart rate 63 /min [facility] 04-25-2024 09:50-0400 Respiratory rate 16 /min [facility] 04-25-2024 09:50-0400 SaO2% (BldA) [Mass fraction] 96 % [facility] 04-25-2024 09:50-0400 Systolic blood pressure 132 mm[Hg] [facility] 04-01-2024 09:23-0400 Blood Pressure Location Saenz Tayemini [facility] 04-01-2024 09:23-0400 Diastolic blood pressure 80 mm[Hg] Saenz Sarmini [facility] 04-01-2024 09:23-0400 Heart rate 86 /min Saenz Sarmini [facility] 04-01-2024 09:23-0400 Respiratory rate 18 /min Saenz Sarmini [facility] 04-01-2024 09:23-0400 Systolic blood pressure 126 mm[Hg] Seanz Sarmini [facility] 12-04-2023 08:58-0500 Blood Pressure Location Jim BAH [facility] 12-04-2023 08:58-0500 Body temperature 98.42 [degF] Jim BAH [facility] 12-04-2023 08:58-0500 Diastolic blood pressure 92 mm[Hg] Jim BAH [facility] 12-04-2023 08:58-0500 Heart rate 90 /min Jim BAH [facility] 12-04-2023 08:58-0500 Respiratory rate 17 /min Jim BAH [facility] 12-04-2023 08:58-0500 Systolic blood pressure 155 mm[Hg] Jim BAH [facility] 07-14-2023 13:35-0400 Diastolic blood pressure 108 mm[Hg] Mary Ellen Emilee [facility] 07-14-2023 13:35-0400 Mean blood pressure 125 mm[Hg] Mary Ellen Emilee [facility] 07-14-2023 13:35-0400 Systolic blood pressure 158 mm[Hg] Mary Ellen Emilee [facility] 11-22-2022 15:37-0500 Blood Pressure Location Grzegorz NILL [facility] 11-22-2022 15:37-0500 Diastolic blood pressure 90 mm[Hg] Grzegorz NILL [facility] 11-22-2022 15:37-0500 Heart rate 68 /min Grzegorz NILL [facility] 11-22-2022 15:37-0500 Respiratory rate 16 /min Grzegorz NILL [facility] 11-22-2022 15:37-0500 Systolic blood pressure 126 mm[Hg] Grzegorz NILL [facility] Encounters Encounter Date Encounter Type Care Provider Facility Start: 10-07-2024 End: 10-07-2024 ambulatory Mary Ellen L Emilee Facility:[facility] Start: 06-13-2024 End: 06-13-2024 ambulatory [facility] Work Phone: Start: 06-13-2024 End: 06-13-2024 Patient encounter procedure [facility] Elpidio Work Phone: Start: 05-27-2024 End: 05-28-2024 [facility] Start: 05-02-2024 End: 05-02-2024 Evaluation and management of inpatient SHERLY BIGGS [facility] Start: 04-30-2024 End: 05-02-2024 [facility] Start: 04-25-2024 End: 04-25-2024 ambulatory [facility] Work Phone: Start: 04-25-2024 End: 04-25-2024 Patient encounter procedure [facility] Work Phone: Start: 04-24-2024 End: 04-24-2024 Evaluation and management of inpatient [facility] Start: 04-01-2024 End: 04-01-2024 ambulatory Letty Kotharimini [facility] Start: 04-01-2024 End: 04-01-2024 Patient encounter procedure Saenz [facility] Connor [facility] Start: 02-07-2024 ambulatory Jim BAH Facility :[facility] Start: 01-02-2024 End: 01-02-2024 ambulatory [facility] Start: 12-28-2023 End: 12-28-2023 ambulatory Mary Ellen L Emilee Facility:[facility] [place] Start: 12-08-2023 End: 12-08-2023 ambulatory [facility] Start: 12-04-2023 End: 12-04-2023 ambulatory Jim BAH Facility: [place] Start: 12-04-2023 End: 12-04-2023 Patient encounter procedure Jim BAH [facility] [place] Start: 10-06-2023 End: 10-06-2023 ambulatory [facility] Start: 07-14-2023 End: 07-14-2023 Lab Drop off Mary Ellen L Emilee [facility] Start: 12-28-2022 End: 12-28-2022 Patient encounter procedure Grzegorz More NILL [facility] Nill[facility] [place] Start: 12-14-2022 End: 12-14-[address] ASHA BLANDON . Facility:[facility] Start: 11-22-2022 End: 11-22-2022 Patient encounter procedure Grzegorz More NILL [facility] N[facility] Start: 10-11-2022 End: 10-12-[address] ASHA BLANDON . Facility:[facility] Start: 02-24-2022 Encounter for genera l adult medical examination without abnormal findings DR ASHA BLANDON . [facility] Start: 02-19-2022 End: 02-20-[address] ASHA BLANDON . Facility:[facility] Start: 02-19-2022 End: 02-20-2022 Encounter for general adult medical examination without abnormal findings DR ASHA BLANDON . Facility:[facility] Procedures Date Procedure Procedure Detail Performing Clinician Start: 12-14-2022 Colonoscopy Grzegorz NI LL Start: 02-19-[address] ASHA LEDEZMA . Comment on above: Performed By: #### [facility] #### [facility] [address] [place] [address] Dr. Anup Paez Start: 04-29-2019 Transrectal biopsy [...] Jax hael NILL Partial resection of colon Rayo ORTIZArleen Plan of Treatment Date Care Activity Detail Author Start: 12-09-2024 ambulatory Ambulatory Facility:[facility] Renal function 1999 panel - Serum or Plasma [facility] Renal function 1999 panel - Serum or Plasma [facility] Immunizations Immunization Date Immunization Notes Care Provider Fa cili 06-09-2022 influenza virus vaccine, unspecified formulation Grzegorz DANNA [facility] 09-21-2021 SARS-CoV-2 (COVID-19 ) mRNA BNT-162b2 vax Grzegorz ORTIZL [facility] [place] 01-05-2021 SARS-CoV-2 (COVID-19 ) mRNA BNT-162b2 vax Grzegorz ORTIZL [facility] [place] 12-14-2020 SARS-CoV-2 (COVID-19 ) mRNA BNT-162b2 vax Grzegorz ORTIZL [facility] Payers Date Payer Category Payer Private Health Insurance [id number] 2023 Medicare [id number] 1957 Medicare [id number] 1957 Unknown [id number] 1959 Unknown [id number] 1957 Unknown [id number] 2.16.84 0.1.555624.3.579.2.593 1957 Unknown [id number] 2.16.84 0.1.273755.3.579.2.593 1957 Unknown [id number] 2.16.84 0.1.592461.3.579.2.593 1957 Unknown [id number] 2.16.8 40.1.608859.3.579.2.1286 1957 Unknown [id number] 2.16.8 40.1.040400.3.579.2.1286 1957 Unknown [id number] 2.16.8 40.1.357539.3.579.2.1286 1957 Unknown [id number] 2.16.8 40.1.905324.3.579.2.1286 1957 Unknown [id number] 2.16.8 40.1.796393.3.579.2.1286 1957 Unknown [id number] 2.16.8 40.1.271551.3.579.2.1286 1957 Unknown [id number] 2.16.8 40.1.465373.3.579.2.727 1957 Unknown [id number] 2.16.8 40.1.514727.3.579.2.727 1957 Unknown [id number] 2.16.8 40.1.033217.3.579.2.727 1957 Unknown [id number] 2.16.8 40.1.905100.3.579.2.727 1957 Unknown [id number] 2.16.8 40.1.175568.3.579.2.727 1957 Unknown [id number] 2.16.8 40.1.326939.3.579.2.727 Self-pay Self Pay [id number] Social History Date Type Detail Facility Start: 11-22-2022 End: 04-25-2024 Tobacco smoking status Never smoked tobacco (finding) [facility] Tobacco smoking status Never [facility] [place] Sex Assigned At Male [facility] Start: 1955 Sex Assigned At Male [facility] Functional Status Date Assessment Result Facility 04-01-2024 Functional Status N/A [facility] 12-04-2023 Functional Status N/A [facility] 11-22-2022 Functional Status N/A [facility] Clinical Notes 12-14-2022 to 05-27-2024 Note Date & Type Note Facility 05-27-2024 Note Cardiology Clinic No te Chief Complaint: chest pain HPI: Maximino Clarke is a 69 y.o. male with a past medical history [...] of the ascending aorta measuring 4.0 cm. Pt is here for a six month follow up with CTA. Pt denies chest pain, dizziness, swelling of the legs. No additional cardiac complaints or concerns. CTA demonstrated mild anuerysmal dilation at 4.4 cm vs 4.3 cm in 2020. Cardiology ROS: GENERAL: Denies fever, chills, night [...] Prior to Visit Medication Sig Dispense Refill aspirin 81 mg EC tablet Take 1 tablet by mouth in the morning. cholecalciferol (Vitamin D-3) 25 MCG (1000 UT) capsule Take 1 capsule every day by oral route. hydroCHLOROthiazide (HYDRODiuril) 25 mg tablet Take 1 tablet (25 mg) by mouth in the morning. 30 tablet 11 losartan (Cozaar) 25 mg tablet Take 1 tablet (25 mg) by mouth in the morning. 30 tablet 11 rosuvastatin (Crestor) 20 mg tablet Take 1 tablet (20 mg) by mouth in the morning. 90 tablet 3 albuterol 90 mcg/actuation inhaler INL 2 PFS PO Q 6 H PRN FOR SHORTNESS OF BREATH OR WHEEZING pravastatin (Pravachol) 20 mg tablet Take 1 tablet by mouth at bedtime. predniSONE (Deltasone) 10 mg tablet Take 10 mg by mouth if needed. Pulmicort Flexhaler 90 mcg/actuation inhaler Inhale 1 puff in the morning and at bedtime. No current facility-administered medications on file prior to visit. Allergies Patient has no known allergies. Physical Exam VITAL SIGNS: BP (!) 125/91 (BP Location: Left arm, Patient Position: Sitting) Pulse 69 Ht 1.727 m (5' 8 ) Wt 88.5 kg (195 lb) SpO2 98% BMI 29.65 kg/m??? Constitutional: Well developed, Well nourished, No [...] Radiology: CT chest wo IV contrast Narrative: [facility] Department of Radiology [address] [place] [address] ====== Patient Name: MAXIMINO CLARKE : 1955 Sex: M Age: Race: Black^Black/ Pt. Location: [facility] Patient Status: O (more content not included)... [facility] 12-08-2023 Note Cardiology Clinic No te Chief [...] CT chest wo IV contrast Narrative: [facility] (more content not included)... [facility] 12-04-2023 Hospital Discharge instructions Patient [...] urethra. Follow these instructions at home: Take lrml-jes-[id number] and prescription medicines only as told by [...] provider. Document Revised: 04/06/2022 Document Reviewed: 04/06/2022 [employer] Patient Education 2022 [employer]. Follow Up Care 08/29/2023 09:19:56 With:Jim BAH MD, URL Address: [facility] [address] [place] [address]- [phone] When:Within 1 Year(s) Comments:with PSA With:Jim BAH MD, URL Address: [facility] [address] [place] [address]- [phone] When: Unknown [facility] 10-06-2023 Note Cardiology Clinic No te [...] Radiology: CT chest wo IV contrast Narrative: [facility] Department of Radiology [address] [place] [id number] ====== Patient Name: MAXIMINO CLARKE : 1955 Sex: M Age: Race: Black^Black/ Pt. Location: [facility] Patient Status: O Ordered Date: 03/20/2020 1:35:00 PM Completed Date: 04/22/2020 09:10 AM Requesting Provider: NICKY BORDEN Attending Provider: NICKY BORDEN Report Copy To: ASHA BLANDON Signs & Symptoms: J84.9 Interstitial pulmonary disease, unspecified I10 History: [facility] with [facility] [address] ct chest. auth#[id number] valid 03/24-06/24/2020 phone: [phone] No to all COVID questions - jlr Comments: Protocols: inspiratory and excpiratory films for air trapping Exam: CT CHEST HIGH RESOLUTION WITHOUT CONTRAST === (more content not included)... [facility] 10-06-2023 Note New patient here to establish care. Ref from Dr. Barlow for CAD. Underwent PCI at [facility] in April 2011. He has been having chest pain the past few months, which occurs with rest. He gets SOB only with stairs and/or elevation. Denies palpitations and lightheadedness. Review of Systems Cardiovascular: Positive for chest pain and dyspnea on exertion. All other systems reviewed and are negative. [facility] 12-14-2022 Note OPERATIVE NOTE OPERATION [...] good condition. CC: Asha Blandon M.D. [facility] Evaluation + Plan note No data available for this section [facility] [place] Evaluation + Plan note Future Appointments Appointment Date:10/13/2023 01:00:00 PM Scheduled Provider:Mary Ellen Dela Cruz Location:[facility] Appointment Type:FM Open [facility] Evaluation + Plan note Future Appointments Appointment Date:12/09/2024 08:45:00 AM Scheduled Provider:Jim BAH MD Location:[facility] Appointment Type:URO Office Visit Diagnostic Tests PendingPSA Total 12/04/23 [facility] Evaluation + Plan note Future Appointments Appointment Date:12/09/2024 08:45:00 AM Scheduled Provider:Jim BAH MD Location:[facility] Appointment Type:URO Office Visit [facility] Evaluation note Diagnosis Onset Date BPH (benign prostatic hyperplasia) acute CAD (coronary artery disease) acute CKD (chronic kidney disease) stage 3, GFR 30-59 ml/min acute Hyperlipidemia acute [id number] acute Pancreatic cyst acute Secondary hyperparathyroidism acute Thrombocytopenia acute [facility] Work Phone: Evaluation note* Diagnosis Onset Date Resolution Status BPH (benign prostatic hyperplasia) acute CAD (coronary artery disease) acute CKD (chronic kidney disease) stage 3, GFR 30-59 ml/min acute Hyperlipidemia acute [id number] acute Pancreatic cyst acute Secondary hyperparathyroidism acute Thrombocytopenia acute BPH (benign prostatic hyperplasia) acute CAD (coronary artery disease) acute CKD (chronic kidney disease) stage 3, GFR 30-59 ml/min acute Hyperlipidemia acute [id number] acute Pancreatic cyst acute Secondary hyperparathyroidism acute Thrombocytopenia acute [facility] Work Phone: Hospital Discharge instructions No data available for this section [facility] [place] note No data available for this section [facility] [place] Reason for referral (narrative) , EUS Referred by: Connor DHALIWAL, Letty Argueta [facility] Summary Purpose Family [...] disease) stage 3, GFR 30-59 ml/min Hyperlipidemia [id number] Pancreatic cyst Secondary hyperparathyroidism Thrombocytopenia Chief Complaint Stage 3 kidney disea se RENAL 2 months Reason for Visit BPH (benign prostati c hyperplasia) CAD (coronary artery disease) CKD (chronic kidney disease) stage 3, GFR 30-59 ml/min Hyperlipidemia [id number] Pancreatic cyst Secondary hyperparathyroidism Thrombocytopenia BPH (benign prostatic hyperplasia) CAD (coronary artery disease) CKD (chronic kidney disease) stage 3, GFR 30-59 ml/min Hyperlipidemia [id number] Pancreatic cyst Secondary hyperparathyroidism Thrombocytopenia Additional Source Comments (unrecognized sect ion and content) No Status Records FoundNo Status Records FoundNo Status Records FoundNo Status Records FoundNo Status Records FoundNo Status Records Found INFORMATION SOURCE (unrecogn ized section and content) DATE CREATED AUTHOR 09/11/2020 [facility] DATE CREATED AUTHOR AUTHOR'S ORGANIZ ATION 11/20/2021 [facility] DATE CREATED AUTHOR AUTHOR'S ORGANIZ ATION 12/21/2022 [facility] DATE CREATED AUTHOR AUTHOR'S ORGANIZ ATION 05/05/2024 [facility] DATE CREATED AUTHOR AUTHOR'S ORGANIZ ATION 07/08/2024 [facility] DATE CREATED AUTHOR AUTHOR'S ORGANIZ ATION 10/13/2024 [facility] Patient Care team informatio n (unrecognized [...] BE BASED ON THE PRIMARY CLINICAL RECORDS. [facility] [employer] provides no warranty or guarantee of the accuracy or completeness of information in this document.
[2024-11-13 11:24] LABS: Calcium 8.6 mg/dL (8.5-10.1); Carbon Dioxide 31.8 mmol/L (21.0-32.0); Chloride 105 mmol/L (98-107); Estimated GFR (African America >60 (>=60 mL/min/1.73m^2); Estimated GFR (Non-African Ame 55 (>=60 mL/min/1.73m^2); Glucose 87 mg/dL (74-106); Potassium 3.8 mmol/L (3.5-5.1); Sodium 143 mmol/L (136-145)
== END 2024-11-13 11:02 | disposition home or self-care (01) ==
LOC: LAB 11:02
PROVIDERS: PCP Nurse Practitioner; Visit Provider Internal Medicine Cardiovascular Disease
DX: I11.9 Hypertensive heart disease without heart failure (principal)
CPT/HCPCS: 36415; 80048

== ENCOUNTER 2024-11-15 11:30 | Outpatient (OUT) | payer MEDICARE, SELFPAY ==
--- OUTSIDE RECORDS SUMMARY | 2024-11-15 11:53 | XMS_ITS | CCD ---
Author Organization [facility] CliniSymd Care Team Providers Care Portfolio Analyst Name Role Phone JOHANNA BLANDON Primary Care Physician [phone] JOHANNA Reyes Primary Care [...] Mary Ellen Hebert Primary Care Physician SURINDER ESCALONA Admitting Unavailable ALASTAL, YASEEN S Attending Unavailable ALASTAL YASEEN S Attending Unavailable ALASTAL, YASEEN S Referring Unavailable SHERLY BIGGS Attending Unavailable Jim BAH Attending Unavailable Jim BAH Attending Unavailable Letty Ryan Attending Unavaila ble EmileeMary Ellen gibson Referring Unavailable EmileeMary Ellen Attending Unavailable Emilee Mary Ellen L Attending Unavailable Emilee Mary Ellen L Attending Unavailable KAT VASQUEZ Attending Unavailable KAT VASQUEZ Attending Unavailable KAT VASQUEZ Attending Unavailable Allergies Allergy Classification Reported Allergen(s) Allergy Type Date of Onset Reaction(s) Facility (1 source) No Known Medication Allergies; 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: [No Known Medication Allergies] Propensity to adverse reactions (disorder) [facility] Repository Medications Current Medications Medication [...] Daily, # 30 tab(s), Refills(s) 11, [id number] 174, cm, 12/04/23 9:07:00 EST, Height/Length Dosing, [...] inh, Inhalation, BID, 1 EA, Refill(s) 11, [id number], 172.7, cm, 07/14/23 13:11:00 EDT, Height/Length Dosing, [...] BID, # 180 tab(s), Refills(s) 3, Pharmacy: [facility] #[id number], 174, cm, 01/02/24 10:21:00 EDT, Height/Length Dosing, [...] Start: 04-01-2024 take 1 capsule by mo ut once daily Nexium 40 mg Cap-EC 40 mg = 1 cap(s), Oral, Daily, # 90 cap(s), Refills(s) 0, [id number], 174, cm, 04/01/24 9:33:00 EDT, Height/Length Dosing, [...] for 30 day(s), 30 tab(s), Refill(s) 0, [facility] #[id number], 172.7, cm, 11/22/22 15:44:00 EST, Height/Length Dosing, [...] Coronary arteriosclerosis; 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: [Atherosclerotic heart disease of [place] coronary artery without angina pectoris] Onset: 3 04-25-2019 Chronic Coronary atherosclerosis and other heart disease (1 source) Presence of coronary angioplasty implant and graft; 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: [PRESENCE COR ANGPLSTY IMPLANT AND GRAFT] Onset: 3 Episodic Disorders of lipid metabolism (13 sources) Hyperlipidemia; 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: [Hyperlipidemia, unspecified] Onset: 3 [...] Onset: 3 Episodic Other aftercare (1 source) 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; 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: [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] Onset: 3 Episodic [...] 10-07-2024 Ambulatory Visit Summary Ambulatory Visit Summary MAXIMINO CLARKE :1955 Visit Date:10/07/2024 Ambulatory Visit Instructions Your Diagnosis Sinusitis Fluid level behind tympanic membrane of both ears Non-smoker BMI 31.0-31.9,adult Exogenous obesity Your Care Team Attending Physician - Mary Ellen Dela Cruz Primary Care Physician - Mary Ellen Dela Cruz This Is Your Medications List Misc Prescription (CPap supplies) albuterol (albuterol 0.083% Inh [...] DHALIWAL, Jim More Where: [facility] [place] [id number]- Medications What How Much When Why Instructions Unchanged albuterol (albuterol 0.083% Inh Anne 3 mL) 3 Milliliter Nebulized inhalation (aerosol) Every 6 hours Unchanged alfuzosin (alfuzosin 10 mg ER Tab) 1 Tablets By Mouth Every day Unchanged amoxicillin-clavulanat e (amoxicillin-clavulana te 875 mg-125 mg Tab) 1 Tablets By Mouth Every 12 hours Duration: 10 Days Pickup at [facility] #27453 Unchanged aspirin 81 Milligram Chewed Every day [...] Tablets By Mouth Every day Pharmacy Information [facility] #[id number]: [address] [place], [place] [phone] Medications and Immunizations Administered Given Kenalog-40, 60 [...] for choosing us for your care. Normal [facility] Family Medicine Office/Clini c Noteon 10-07-2024 Family [...] for 10 day(s), 20 tab(s), Refill(s) 0, [facility] #[id number], 174, cm, 10/07/24 15:26:00 EST, Height/Length Dosing, [...] (COVID-19) mRNA BNT-162b2 vax 12/14/2020 Recorded Normal [facility] Comment on above: Result Comment: Elec tronically Signed By: Mary Ellen Dela Cruz\.dipti\Date and Time Signed: 10/07/24 15:38 EST Office Visiton 05-27-2024 Follow-up visit [id number] Padmini Clarke 1955 M Date Provider Department Center 05/27/2024 3848-KAT VAS[facility] Family History Problem Relation Age of Onset Hypertension Mother Cancer Mother Family Status - Relation Status Age at Mother Level of Service:29080 [place] OFFICE/OUTPATIENT ESTABLISHED MOD MDM 30 MIN Normal [facility] Surgical Pathologyon 024 Surgical Pathology Normal [facility] Comment on above: Result Comment: [facility] [address] [place] [address] Surgical Pathology Consultation Patient Name:MAXIMINO CLARKE:1955 (Age: 69)Gender:MTaken:04/30/2024eported:05/02/2024hysician(s):Surinder Escalona MD ( )Copy To: Rec. #:[id number]: #[id number] Final Pathologic Diagnosis Gastric biopsy: Mild chronic gastritis with intestinal metaplasia present. Negative for helicobacter organisms on routine H&E examination Negative for dysplasia or malignancy. Report Electronically Signed Out st05/02/2024Lorena Bowles MD Interpretation performed at [facility], [address] [place], [address], License number: [id number]. Clinical History Pancreatic cyst, abdominal pain. 1. H pylori screen Gross Description Received in formalin, labeled VINCE, gastric biopsy are multiple pink-del angel soft tissue fragments aggregating 1.3 x 0.5 x 0.1 cm. The specimen is filtered and entirely submitted in one cassette. (1, ns, [id number] m7, ) MW mxw/04/30/2024GR Specimen(s) Received Gastric biopsy Fee Codes(s): 1; 26712 36on 04-15-2024 SARS-CoV-2 (COVID-19) RNA NIEVES+probe Ql (Unsp spec) 04/15/24@1000 Patients called stating that Maximino tested positive for COVID today, per [facility] policy he needs to wait 10 days from his positive test to be scheduled. Patient is rescheduled for 04/30/24 arriving at 0945 for a 1145 procedure with a PAT call on 04/23/24 in the am. [facility] 36on 04-09-2024 36 Scheduled EGD/EUS/Pancreatic Cyst/Abd Pain 04/19/24 @1200, PTH, Dr. Escalona, PAT ph: 04/12/24 @1130, #[id number], Ref Dr. Ryan in [place] 04/03/24. [facility] Telephoneon 04-09-2024 Telephone [id number] Padmini Clarke E 1955 M Date Provider Department Center 04/09/2024 06615-PZAAUMODE VÁZQUEZ [facility] Family History Problem Relation Age of Onset Hypertension Mother Cancer Mother Family Status - Relation Status Age at Mother [facility] Gastroenterology Office/Clin ic Noteon 04-01-2024 Gastroenterology Office/Clinic [...] 01/05/2021 R (more content not included)... Normal [facility] Comment on above: Result Comment: Elec tronically Signed By: Connor DHALIWAL, Letty Argueta\.br\Date and Time Signed: 04/01/24 10:29 EDT\.br\Electronically Co-Signed By: Liliana Garcia MA\.br\Date and Time Co-Signed: 04/01/24 10:24 EDT Physician Referralon 024 Physician Referral [id number]. 00TIFF Normal [facility] Physician Referralon 024 Physician Referral [id number] 05 [id number]#1. 00TIFF Normal [facility] RAD - CT Reporton 01-26-2024 RAD - CT Report [id number]#1.0 0TIFF [facility] Physician Orderon 01-03-2024 Physician Order [id number]#1.0 0TIFF [facility] Ambulatory Visit Summaryon 0 01-02-2024 Ambulatory Visit Summary MAXIMINO CLARKE Amy :1955 Visit Date:01/02/2024 Ambulatory Visit Instructions Your [...] DHALIWAL, Jim More Where: [facility] Family Medicine Office/Clini c Noteon 01-02-2024 [...] (COVID-19) mRNA BNT-162b2 vax 12/14/2020 Recorded Normal [facility] Comment on above: Result Comment: Elec tronically Signed By: Mary Ellen Dela Cruz\.br\Date and Time Signed: 01/02/24 11:42 EDT Physician Orderon 01-02-2024 Physician Order [id number]#1.0 0TIFF Normal [facility] Ambulatory Visit Summaryon 0 12-28-2023 [...] DHALIWAL, Jim More Where: [facility] Jazmin Normal [facility] [place] 12-28-2023 Consent [id number]#1.0 0TIFF Normal [facility] Family Medicine Office/Clini c Noteon 12-28-2023 Family [...] day(s), # 14 tab(s), Refills(s) 0, Pharmacy: [facility] #[id number], 174, cm, 12/28/23 8:31:00 EDT, Height/Length Dosing, 93.3, kg, 12/28/23 8:31:00 EDT, Weight Dosing 4. Non-smoker (Z78.9: Other specified health status) continue not smoking Ordered: amoxicillin-clavulanat e, = 1 tab(s), Oral, q12hr, X 7 day(s), # 14 tab(s), Refills(s) 0, Pharmacy: [facility] #[id number], 174, cm, 12/28/23 8:31:00 EDT, Height/Length Dosing, 93.3, kg, 12/28/23 8:31:00 EDT, Weight Dosing 5. Hypertension (I10: Essential (primary) hypertension) BP continues to run high. rn allergy started him on carvedilol we will increase that dose today. he does not have any follow up appointments scheduled with cardiology and they are leaving on a cruise next week. RTC 4 weeks for BP check. Orders: carvedilol, 12.5 mg = 1 tab(s), Oral, BID, # 60 tab(s), Refills(s) 0, Pharmacy: [facility] #[id number], 174, cm, 12/28/23 8:31:00 EDT, Height/Length Dosing, [...] Recorded SARS (more content not included)... Normal [facility] Comment on above: Result Comment: Elec tronically Signed By: Mary Ellen Dela Cruz\.br\Date and Time Signed: 12/28/23 08:48 EDT Office Visiton 12-08-2023 Follow-up visit [id number] Padmini Clarke 1955 M Date Provider Department Center 12/08/2023 [facility] Family History Problem Relation Age of Onset Hypertension Mother Cancer Mother Family Status - Relation Status Age at Mother Level of Service:03154 [place] OFFICE/OUTPATIENT ESTABLISHED MOD MDM 30 MIN Reason for Visit and Comments: Follow-up [998199] [facility] Ambulatory Visit Summaryon 0 12-04-2023 Ambulatory Visit [...] Jim BAH MD Where: [facility] Patient Educationon 12-04-19 Patient Education Urology [...] Follow these instructions at home: ? Take lygb-qbz-uonbbfw and prescription medicines only as told by [...] the medicine (more content not included)... Normal [facility] Urology Office/Clinic Noteon 12-04-2023 Urology [...] [facility] [address], [place] [address] [phone] Additional Instructions: with PSA Patient Education Benign [...] mcg/inh i (more content not included)... Normal [facility] Comment on above: Result Comment: Elec tronically Signed By: Jim BAH MD\.br\Date and Time Signed: 12/04/23 09:47 EST\.br\Electronically Co-Signed By: Iris Robledo\.br\Date and Time Co-Signed: 12/04/23 09:45 EST CHEMISTRYOrdered By: SYSTEM SYSTEM on 07-14-2023 Albumin [...] 51 mL/min/1.73 m2 Low >=59mL/min/1 .73 m2 [facility] Comment on above: Interpretive Data: [...] used for this result was chemiluminescence using [employer] Access Hy[employer] PSA reagent. Protein [Mass/Vol] 7.8 [...] - 7.5 E9/L [facility] HemeAutoSS HEMATOLOGYOrdered By: Alliso n Irving on 07-14-2023 Erythrocyte distribution width (RBC) [Ratio] [...] 10-11-2022 BASO # 0.0 103/ul Normal 0.0-0.1 [facility] Comment on above: Performed By: #### C BC #### [facility] [address] [address] [address] Anup Paez Basophils/100 WBC (Bld) 0.4 % Normal 0.2-2.[address] [facility] Comment on above: Performed By: #### C BC #### [facility] [address] [address] [address] Anup Paez EO # 0.0 103/ul Normal 0.0-0.[address] [facility] Comment on above: Performed By: #### C BC #### [facility] [address] [address] [address] Anup Paez Eosinophils/100 WBC (Bld) 0.1 % Critically low 0.9-7.[address] [facility] Comment on above: Performed By: #### C BC #### [facility] [address] [address] [address] Anup Paez Erythrocyte distribution width (RBC) [Ratio] 13.2 % Normal 11.0-15.0 [facility] Comment on above: Performed By: #### C BC #### [facility] [address] [place] [address] Dr. Anup Paez Hematocrit (Bld) [Volume fraction] 43.2 % Normal 42.0-54.0 [facility] Comment on above: Performed By: #### C BC #### [facility] [address] [place] [address] Dr. Anup Paez Hemoglobin (Bld) [Mass/Vol] 14.7 g/dL Normal 14.0-18.0 [facility] Comment on above: Performed By: #### C BC #### [facility] [address] [place] [address] Dr. Anup Paez IG # 0.03 10e3/ul Normal 0.00-0.03 [facility] Comment on above: Performed By: #### C BC #### [facility] [address] [place] [address] Dr. Anup Paez IG % 0.4 % Normal 0.0-0.5 [facility] Comment on above: Performed By: #### C BC #### [facility] [address] [place] [address] Dr. Anup Paez LYMPH # 1.2 103/ul Normal 1.2-3.8 [facility] Comment on above: Performed By: #### C BC #### [facility] [address] [place] [address] Dr. Anup Paez Lymphocytes/100 WBC (Bld) 14.8 % Critically low 20.5-60.0 [facility] Comment on above: Performed By: #### C BC #### [facility] [address] [place] [address] Dr. Anup Paez MANUAL DIFF REQ NO Normal [facility] Comment on above: Performed By: #### C BC #### [facility] [address] [place] [address] Dr. Anup Paez MCH (RBC) [Entitic mass] 30.3 pg Normal 25.9-34.0 [facility] Comment on above: Performed By: #### C BC #### [facility] [address] [address] [address] Anup Paez MCHC (RBC) [Mass/Vol] 34.0 g/dL Normal 29.9-35.2 [facility] Comment on above: Performed By: #### C BC #### [facility] [address] [address] [address] Anup Paez MCV (RBC) [Entitic vol] 89.1 fL Normal 80.0-94.0 [facility] Comment on above: Performed By: #### C BC #### [facility] [address] [address] [address] Anup Paez MONO # 0.5 103/ul Normal 0.3-0.8 [facility] Comment on above: Performed By: #### C BC #### [facility] [address] [place] [address] Dr. Anup Paez Monocytes/100 WBC (Bld) 5.5 % Normal 1.7-12.0 [facility] Comment on above: Performed By: #### C BC #### [facility] [address] [address] [address] Anup Paez NEUT # 6.6 103/ul Critically high 1.4-6.5 [facility] Comment on above: Performed By: #### C BC #### [facility] [address] [place] [address] Dr. Anup Paez Neutrophils/100 WBC (Bld) 78.8 % Critically high 43.0-75.0 [facility] Comment on above: Performed By: #### C BC #### [facility] [address] [address] [address] Anup Paez Platelet mean volume (Bld) [Entitic vol] 11.9 fL Normal 9.5-13.[address] [facility] Comment on above: Performed By: #### C BC #### [facility] [address] [address] [address] Anup Paez PLT 140 103/ul Critically low 150-[address] [facility] Comment on above: Performed By: #### C BC #### [facility] [address] [place] [address] Dr. Anup Paez RBC 4.85 106/ul Normal 4.70-6.10 [facility] Comment on above: Performed By: #### C BC #### [facility] [address] [place] [address] Dr. Anup Paez WBC 8.3 103/ul Normal 4.0-11.0 [facility] Comment on above: Performed By: #### C BC #### [facility] [address] [place] [address] Dr. Anup Paez FREE T3on 10-11-2022 FREE T3 2.36 pg/mlL Normal 2.18-3.98 [facility] Comment on above: Performed By: #### F T3 #### [facility] [address] [place] [address] Dr. Anup Paez FREE T4on 10-11-2022 Free T4 [Mass/Vol] 0.97 ng/dL Normal 0.76-1.46 [facility] Comment on above: Performed By: #### F T4 #### [facility] [address] [place] [address] Dr. Anup Paez TSHon 10-11-2022 TSH 0.231 uIU/mL Critically low 0.358-3.740 [facility] Comment on above: Performed By: #### T SH #### [facility] [address] [place] [address] Dr. Anup Paez CBC AUTO DIFFon 02-19-2022 BASO # 0.1 103/ul Normal 0.0-0.1 [facility] Comment on above: Performed By: #### C BC #### [facility] [address] [place] [address] Dr. Anup Paez Basophils/100 WBC (Bld) 1.1 % Normal 0.2-2.0 [facility] Comment on above: Performed By: #### C BC #### [facility] [address] [place] [address] Dr. Anup Paez EO # 0.2 103/ul Normal 0.0-0.7 [facility] Comment on above: Performed By: #### C BC #### [facility] [address] [place] [address] Dr. Anup Paez Eosinophils/100 WBC (Bld) 4.4 % Normal 0.9-7.0 [facility] Comment on above: Performed By: #### C BC #### [facility] [address] [place] [address] Dr. Anup Paez Erythrocyte distribution width (RBC) [Ratio] 12.9 % Normal 11.0-15.0 [facility] Comment on above: Performed By: #### C BC #### [facility] [address] [place] [address] Dr. Anup Paez Hematocrit (Bld) [Volume fraction] 44.4 % Normal 42.0-54.0 [facility] Comment on above: Performed By: #### C BC #### [facility] [address] [place] [address] Dr. Anup Paez Hemoglobin (Bld) [Mass/Vol] 14.4 g/dL Normal 14.0-18.0 [facility] Comment on above: Performed By: #### C BC #### [facility] [address] [place] [address] Dr. Anup Paez IG # 0.01 10e3/ul Normal 0.00-0.03 [facility] Comment on above: Performed By: #### C BC #### [facility] [address] [place] [address] Dr. Anup Paez IG % 0.2 % Normal 0.0-0.5 [facility] Comment on above: Performed By: #### C BC #### [facility] [address] [place] [address] Dr. Anup Paez LYMPH # 1.6 103/ul Normal 1.2-3.[address] [facility] Comment on above: Performed By: #### C BC #### [facility] [address] [place] [address] Dr. Anup Paez Lymphocytes/100 WBC (Bld) 35.8 % Normal 20.5-60.[address] [facility] Comment on above: Performed By: #### C BC #### [facility] [address] [place] [address] Dr. Anup Paez MANUAL DIFF REQ NO Normal [facility] Comment on above: Performed By: #### C BC #### [facility] [address] [place] [address] Dr. Anup Paez MCH (RBC) [Entitic mass] 30.1 pg Normal 25.9-34.0 [facility] Comment on above: Performed By: #### C BC #### [facility] [address] [place] [address] Dr. Anup Paez MCHC (RBC) [Mass/Vol] 32.4 g/dL Normal 29.9-35.2 [facility] Comment on above: Performed By: #### C BC #### [facility] [address] [place] [address] Dr. Anup Paez MCV (RBC) [Entitic vol] 92.7 fL Normal 80.0-94.0 [facility] Comment on above: Performed By: #### C BC #### [facility] [address] [place] [address] Dr. Anup Paez MONO # 0.5 103/ul Normal 0.3-0.8 [facility] Comment on above: Performed By: #### C BC #### [facility] [address] [place] [address] Dr. Anup Paez Monocytes/100 WBC (Bld) 11.6 % Normal 1.7-12.0 [facility] Comment on above: Performed By: #### C BC #### [facility] [address] [place] [address] Dr. Anup Paez NEUT # 2.1 103/ul Normal 1.4-6.[address] [facility] Comment on above: Performed By: #### C BC #### [facility] [address] [place] [address] Dr. Anup Paez Neutrophils/100 WBC (Bld) 46.9 % Normal 43.0-75.0 [facility] Comment on above: Performed By: #### C BC #### [facility] [address] [address] [address] Anup Paez Platelet mean volume (Bld) [Entitic vol] 12.0 fL Normal 9.5-13.5 [facility] Comment on above: Performed By: #### C BC #### [facility] [address] [address] [address] Anup aPez PLT 107 103/ul Critically low 150-450 [facility] Comment on above: Performed By: #### C BC #### [facility] [address] [address] [address] Anup Paez RBC 4.79 106/ul Normal 4.70-6.10 [facility] Comment on above: Performed By: #### C BC #### [facility] [address] [place] [address] Dr. Anup Paez WBC 4.6 103/ul Normal 4.0-11.0 [facility] Comment on above: Performed By: #### C BC #### [facility] [address] [place] [address] Dr. Anup Paez LIPID PROFILEon 02-19-2022 CHOL-HDL RATIO NORM SEE BELOW Normal [facility] Comment on above: Result Comment: 3.3 - 4.4 LOW RISK 4.4 - 7.1 AVERAGE RISK 7.1 - 11.0 MODERATE RISK >11.0 HIGH RISK Performed By: #### C MP, LIPID #### [facility] [address] [place] [address] Dr. Anup Paez Cholesterol [Mass/Vol] 120 mg/dL Normal <=200 [facility] Comment on above: Performed By: #### C MP, LIPID #### [facility] [address] [place] [address] Dr. Anup Paez Cholesterol in HDL [Mass/Vol] 33 mg/dL Critically low 40-60 [facility] Comment on above: Performed By: #### C MP, LIPID #### [facility] [address] [address] [address] Anup Paez Cholesterol in LDL [Mass/Vol] 68.2 mg/dL Normal [facility] Comment on above: Performed By: #### C MP, LIPID #### [facility] [address] [address] [address] Anup Paez Cholesterol.total/Cho lesterol in HDL [Mass ratio] 3.6 {ratio} Normal [facility] Comment on above: Performed By: #### C MP, LIPID #### [facility] [address] [address] [address] Anup Paez HDL NORMAL > or = 60 mg/dl - LO W CARDIOVASCULAR RISK <40 mg/dl - HIGH CARDIOVASCULAR RISK Normal [facility] Comment on above: Performed By: #### C MP, LIPID #### [facility] [address] [place] [address] Dr. Anup Paez LDL CALC NORMAL SEE BELOW Normal [facility] Comment on above: Result Comment: <100 mg/dl OPTIMAL 100 - 129 mg/dl NEAR OR ABOVE OPTIMAL 130 - 159 mg/dl BORDERLINE HIGH 160 - 189 mg/dl HIGH >190 mg/dl VERY HIGH Performed By: #### C MP, LIPID #### [facility] [address] [place] [address] Dr. Anup Paez Triglyceride [Mass/Vol] 94 mg/dL Normal <=150 [facility] Comment on above: Performed By: #### C MP, LIPID #### [facility] [address] [place] [address] Dr. Anup Paez VLDL CALC 18.8 mg/dL Normal [facility] Comment on above: Performed By: #### C MP, LIPID #### [facility] [address] [address] [address] Anup Paez PROF 14(COMP METB)on 022 Albumin [Mass/Vol] 3.6 g/dL Normal 3.4-5.0 [facility] Comment on above: Performed By: #### C MP, LIPID #### [facility] [address] [place] [address] Dr. Anup Paez Albumin/Globulin [Mass ratio] 1.0 {ratio} Normal [facility] Comment on above: Performed By: #### C MP, LIPID #### [facility] [address] [address] [address] Anup Paez ALP [Catalytic activity/Vol] 97 U/L Normal 46-116 [facility] Comment on above: Performed By: #### C MP, LIPID #### [facility] [address] [address] [address] Anup Paez ALT [Catalytic activity/Vol] 33 U/L Normal 16-63 [facility] Comment on above: Performed By: #### C MP, LIPID #### [facility] [address] [address] [address] Anup Paez Anion gap [Moles/Vol] 11.5 mmol/L Normal [facility] Comment on above: Performed By: #### C MP, LIPID #### [facility] [address] [address] [address] Anup Paez AST [Catalytic activity/Vol] 21 U/L Normal 15-37 [facility] Comment on above: Performed By: #### C MP, LIPID #### [facility] [address] [address] [address] Anup Paez Bilirubin [Mass/Vol] 0.4 mg/dL Normal 0.2-1.0 [facility] Comment on above: Performed By: #### C MP, LIPID #### [facility] [address] [address] [address] Anup Paez Calcium [Mass/Vol] 8.5 mg/dL Normal 8.5-10.1 [facility] Comment on above: Performed By: #### C MP, LIPID #### [facility] [address] [address] [address] Anup Paez Chloride [Moles/Vol] 106 mmol/L Normal 98-107 [facility] Comment on above: Performed By: #### C MP, LIPID #### [facility] [address] [address] [address] Anup Paez CO2 [Moles/Vol] 26.3 mmol/L Normal 21.0-32.0 [facility] Comment on above: Performed By: #### C MP, LIPID #### [facility] [address] [address] [address] Anup Paez Creatinine [Mass/Vol] 1.26 mg/dL Normal 0.70-1.30 [facility] Comment on above: Performed By: #### C MP, LIPID #### [facility] [address] [address] [address] Anup Paez EGFR-AF PANAMANIAN >60 Normal >=60 [facility] Comment on above: Performed By: #### C MP, LIPID #### [facility] [address] [address] [address] Anup Paez EGFR-NON AF PANAMANIAN 57 mL/min/1.73m2 Critically low >=60 [facility] Comment on above: Performed By: #### C MP, LIPID #### [facility] [address] [address] [address] Anup Paez Globulin (S) [Mass/Vol] 3.6 g/dL Normal [facility] Comment on above: Performed By: #### C MP, LIPID #### [facility] [address] [address] [address] Anup Paez Glucose [Mass/Vol] 95 mg/dL Normal 74-106 [facility] Comment on above: Performed By: #### C MP, LIPID #### [facility] [address] [address] [address] Anup Paez Potassium [Moles/Vol] 3.8 mmol/L Normal 3.5-5.[address] [facility] Comment on above: Performed By: #### C MP, LIPID #### [facility] [address] [address] [address] Anup Paez Protein [Mass/Vol] 7.2 g/dL Normal 6.4-8.2 [facility] Comment on above: Performed By: #### C MP, LIPID #### [facility] [address] [address] [address] Anup Paez Sodium [Moles/Vol] 140 mmol/L Normal 136-145 [facility] Comment on above: Performed By: #### C MP, LIPID #### [facility] [address] [place], [place] [address] Dr. Anup Paez Urea nitrogen [Mass/Vol] 16.0 mg/dL Normal 7.0-18.0 [facility] Comment on above: Performed By: #### C MP, LIPID #### [facility] [address] [place], [place] [address] Dr. Anup Paez Urea nitrogen/Creatinine [Mass ratio] 12.7 mg/mg Normal [facility] Comment on above: Performed By: #### C MP, LIPID #### [facility] [address] [place], [place] [address] Dr. Anup Paez PSA Total (Not a Screen)on 0 04-01-2021 PSA Total (Not a Screen) 0.620 ng/mL Normal 0.000-4.000 [facility] Comment on above: Result Comment: PERF ORMED BY: [place] [address] PATHOLOGIST AUTOMATIC OPERATOR MARITZA MONTANO M.D. Performed By: #### P SATOTAL #### [address] XR ankle LT min 3V*on 2020 XR ankle LT min 3V* [facility] [place] [address] XRay Report Signed Patient: Maximino Clarke MR#: [id number] : 1955 Acct:[id number] Age/Sex: 65 / M ADM Date: 01/11/21 Loc: XDUCLY Room: Type: [facility] Attending Dr: Ailin PARRA Ordering Provider: [...] Dinora Brink M.D.01/11/2021 12:35 PM Dictation Location: [place] [address] Transcribed By: [facility] 01/11/21 1235 Dictated By: Dinora Brink MD 01/11/21 1234 Signed By: 01/11/[address] [facility] Pulmonary Functionon 020 Pulmonary Function MR #: [id number] [facility] PT. Name: Maximino Clarke Date: 08/14/2020 Date [...] Scruggs MD Date Trans: 08/23/2020 05:28 P/ [id number]_JN:[id number] cc: Johanna Blandon M.D. [address] [place] [id number] Normal [facility] ARTERIAL BLOOD GAS W/COOXon 08-14-2020 BASE EXCESS 0 mmol/L Normal -2-3 [facility] Comment on above: Performed By: #### 4 0055 #### [facility] [address] [place] [address], [facility] COHB 1.2 % Normal 0.0-1.5 [facility] Comment on above: Performed By: #### 4 0055 #### [facility] [address] [place] [address], [facility] DELIVERY SYSTEMS ROOM AIR Normal [facility] Comment on above: Performed By: #### 4 0055 #### [facility] [address] [place] [address], [facility] FIO2 0 % Normal [facility] Comment on above: Performed By: #### 4 0055 #### [facility] [address] [place] [address], [place] HCO3 (Bld) [Moles/Vol] 23 mmol/L Normal 21-28 [facility] Comment on above: Performed By: #### 4 0055 #### [facility] [address] [place] [address], [place] METHB 1.0 % Normal 0.0-1.5 [facility] Comment on above: Performed By: #### 4 0055 #### [facility] [address] Oxygen (Bld) [Partial pressure] 88 mm[Hg] Normal 83-108 [facility] Comment on above: Performed By: #### 4 0055 #### [facility] [address] [place] [address], [facility] Oxygen saturation in Blood 95.5 % Normal 94.0-97.0 [facility] Comment on above: Performed By: #### 4 0055 #### [facility] [address] [place] [address], [facility] PCO2 32 mmHg Low 35-45 [facility] Comment on above: Performed By: #### 4 0055 #### [facility] [address] pH (Bld) 7.46 [pH] High 7.35-7.45 [facility] Comment on above: Performed By: #### 4 0055 #### [facility] [address] THB 12.0 g/dL Normal 12.0-16.3 [facility] Comment on above: Performed By: #### 4 0055 #### [facility] [address] Pulmonary Functionon 05-23- 020 Pulmonary Function MR #: [id number] [facility] PT. Name: Maximino Clarke Date: 05/11/2020 Date [...] Scruggs MD Date Trans: 05/23/2020 05:08 P/ [id number] cc: Johanna Blandon M.D. [address] [place] [phone] Normal [facility] ARTERIAL BLOOD GAS W/COOXon 05-11-2020 BASE EXCESS -1 mmol/L Normal -2-3 [facility] Comment on above: Performed By: #### 4 0055 #### [facility] [address] [facility] [place] [address], [facility] COHB 1.5 % Normal 0.0-1.5 [facility] Comment on above: Performed By: #### 4 0055 #### [facility] [address] [facility] [place] [address], [facility] DELIVERY SYSTEM[employer] RA Normal [facility] Comment on above: Performed By: #### 4 0055 #### [facility] [address] [place] [address], [facility] FIO2 0 % Normal [facility] Comment on above: Performed By: #### 4 0055 #### [facility] [address] [place] [address], [facility] HCO3 (Bld) [Moles/Vol] 22 mmol/L Normal 21-28 [facility] Comment on above: Performed By: #### 4 0055 #### [facility] [address] [facility] [place] [place] [address], [facility] METHB 1.0 % Normal 0.0-1.5 [facility] Comment on above: Performed By: #### 4 0055 #### [facility] [address] [facility] [address] Oxygen (Bld) [Partial pressure] 95 mm[Hg] Normal 83-108 [facility] Comment on above: Performed By: #### 4 0055 #### [facility] [address] [facility] [address] Oxygen saturation in Blood 96.5 % Normal 94.0-97.0 [facility] Comment on above: Performed By: #### 4 0055 #### [facility] [address] [facility]. [address] PCO2 31 mmHg Low 35-45 [facility] Comment on above: Performed By: #### 4 0055 #### [facility] [address] [facility] [place] [place] [address], [facility] pH (Bld) 7.46 [pH] High 7.35-7.45 [facility] Comment on above: Performed By: #### 4 0055 #### [facility] [address] [facility] [place] [address], [facility] THB 12.2 g/dL Normal 12.0-16.3 [facility] Comment on above: Performed By: #### 4 0055 #### [facility] [address] *SARS-CoV-2 COVID-19on 05-08 [id number] Not Detected Normal Not Detected [facility] Comment on above: Order Comment: The A ptima SARS-CoV-2 assay is a nucleic acid amplification test intended for the qualitative detection of RNA from SARS-CoV-2 isolated and purified from nasopharyngeal (LABOR COMMISSIONER),oropharyngeal (OP), nasal swab, sputum, and bronchoalveolar lavage (BAL) specimens from patients with signs and symptoms of infection who are suspected of COVID-19. Results are for the identification of SARS-CoV-2 RNA. The SARS-CoV-2 RNA is generally detectable during the acute phase of infection. The Aptima SARS-CoV-2 Assay on the [employer] system is intended for use by laboratory personnel specifically instructed and trained in the operation of the [employer] system. The Aptima SARS-CoV-2 assay is [...] Performed By: #### 3 1792 #### [address] CHEST HIGH RESOLUTION WIT HOUT CONTRASTon 04-22-2020 CT CHEST HIGH RESOLUTION WITHOUT CONTRAST [facility] Department of Radiology [address] [place] [phone] ======== Patient Name: MAXIMINO CLARKE : 1955 Sex: M Age: Race: Black Pt. Location: [facility] Patient Status: O Ordered Date: 03/20/2020 1:35:00 PM Completed Date: 04/22/2020 09:10 AM Requesting Provider: NICKY BORDEN Attending Provider: NICKY BORDEN Report Copy To: JOHANNA BLANDON Signs & Symptoms: J84.9 Interstitial pulmonary disease, unspecified I10 History: [facility]erita [facility] pc with [facility] [address] [address] chest[address] auth#[id number] valid 03/24-06/24/2020 phone: [phone] No to all COVID questions - jlr [...] achievable Electronically signed: Ana Dhillon. Transcribed by: [email or web address], User Resident: Electronically Signed by: ANA DHILLON @ 04/22/2020 12:42 PM Normal [facility] Comment on above: Order Comment: Brian cols: inspiratory and excpiratory films for air trapping *SARS-CoV-2 COVID-19on 03-19 [id number] Not Detected Normal Not Detected [facility] Comment on above: Order Comment: The A ptima SARS-CoV-2 assay is a nucleic acid amplification test intended for the qualitative detection of RNA from SARS-CoV-2 isolated and purified from nasopharyngeal (LABOR COMMISSIONER), nasal and oropharyngeal (OP) swab specimens from patients with signs and symptoms of infection who are suspected of COVID-19. Results are for the identification of SARS-CoV-2 RNA. The SARS-CoV-2 RNA is generally detectable in nasopharyngeal and oropharyngeal swabs during the acute phase of infection. The Aptima SARS-CoV-2 Assay on the [employer] system is intended for use by laboratory personnel specifically instructed and trained in the operation of the [place] [employer] system. The Aptima SARS-CoV-2 assay is [...] By: #### 3 1792 #### [facility] [address] Pulmonary Functionon 020 Pulmonary Function MR #: [id number] [facility] PT. Name: Maximino Clarke Date: 01/25/2019 Date [...] with the resident's interpretation. Date Dict: 12/10/2019/12:08 Pradeep/Masha Mcdermott MD Date Trans: 12/10/2019 12:08 Pradeep/ DIMITRIOS_JN:[id number] cc: Johanna Blandon M.D. [address] [place] [phone] [facility] Vital Signs Date Time Vital Sign Value Performing Clinician Facility 06-13-2024 09:490400 Body height 172.72 cm [facility] 06-13-2024 09:49-0400 Body mass index (BMI) [Ratio] 29.6 kg/m2 [facility] 06-13-2024 09:49-0400 Body temperature 96.7 [degF] [facility] 06-13-2024 09:490400 Body weight 88.5 kg [facility] 06-13-2024 09:49-0400 Diastolic blood pressure 91 mm[Hg] [facility] 06-13-2024 09:49-0400 Heart rate 54 /min [facility] 06-13-2024 09:49-0400 Respiratory rate 16 /min [facility] 06-13-2024 09:49-0400 SaO2% (BldA) [Mass fraction] 98 % [facility] 06-13-2024 09:49-0400 Systolic blood pressure 132 mm[Hg] [facility] 04-25-2024 09:50-0400 Body height 172.72 cm [facility] 04-25-2024 09:50-0400 Body mass index (BMI) [Ratio] 29.8 kg/m2 [facility] 04-25-2024 09:50-0400 Body temperature 97.3 [degF] [facility] 04-25-2024 09:50-0400 Body weight 89.07 kg [facility] 04-25-2024 09:50-0400 Diastolic blood pressure 90 mm[Hg] [facility] 04-25-2024 09:50-0400 Heart rate 63 /min [facility] 04-25-2024 09:50-0400 Respiratory rate 16 /min [facility] 04-25-2024 09:50-0400 SaO2% (BldA) [Mass fraction] 96 % [facility] 04-25-2024 09:50-0400 Systolic blood pressure 132 mm[Hg] [facility] 04-01-2024 09:23-0400 Blood Pressure Location Saenz Sarmini [facility] 04-01-2024 09:23-0400 Diastolic blood pressure 80 mm[Hg] Saenz Sarmini [facility] 04-01-2024 09:23-0400 Heart rate 86 /min Saenz Sarmini [facility] 04-01-2024 09:23-0400 Respiratory rate 18 /min Letty Ryan [facility] 04-01-2024 09:23-0400 Systolic blood pressure 126 mm[Hg] Letty Kotharimini [facility] 12-04-2023 08:58-0500 Blood Pressure Location Jim BHA [facility] 12-04-2023 08:58-0500 Body temperature 98.42 [degF] Jim BAH [facility] 12-04-2023 08:58-0500 Diastolic blood pressure 92 mm[Hg] Jimnoreen BAH [facility] 12-04-2023 08:58-0500 Heart rate 90 /min Jimnoreen BAH [facility] 12-04-2023 08:58-0500 Respiratory rate 17 /min Jim BAH [facility] 12-04-2023 08:58-0500 Systolic blood pressure 155 mm[Hg] Jim BAH [facility] 07-14-2023 13:35-0400 Diastolic blood pressure 108 mm[Hg] Mary Ellen Emilee [facility] 07-14-2023 13:35-0400 Mean blood pressure 125 mm[Hg] Mary Ellen Emilee [facility] 07-14-2023 13:35-0400 Systolic blood pressure 158 mm[Hg] Mary Ellen Emilee [facility] 11-22-2022 15:37-0500 Blood Pressure Location Grzegorz BUSTILLO [facility] [place] 11-22-2022 15:37-0500 Diastolic blood pressure 90 mm[Hg] Grzegorz ORTIZArleen [facility] [place] 11-22-2022 15:37-0500 Heart rate 68 /min Grzegorz ORTIZArleen [facility] [place] 11-22-2022 15:37-0500 Respiratory rate 16 /min Grzegorz ORTIZArleen [facility] [place] 11-22-2022 15:37-0500 Systolic blood pressure 126 mm[Hg] Grzegorz ORTIZL [facility] [place] Encounters Encounter Date Encounter Type Care Provider Facility Start: 11-13-2024 End: 11-13-2024 ambulatory [facility] Start: 10-07-2024 End: 10-07-2024 ambulatory Mary Ellen Hebert Facility:[facility] Start: 06-13-2024 End: 06-13-2024 ambulatory [facility] Work Phone: Start: 06-13-2024 End: 06-13-2024 Patient encounter procedure [facility] Work Phone: Start: 05-27-2024 End: 05-28-[address] [facility] Start: 05-02-2024 End: 05-02-2024 Evaluation and management of inpatient SHERLY Stephens O'CASSY [facility] Start: 04-30-2024 End: 05-02-2024 Evaluation and management of inpatient [facility] Start: 04-25-2024 End: 04-25-2024 ambulatory [facility] Work Phone: Start: 04-25-2024 End: 04-25-2024 Patient encounter procedure [facility] Neph[facility] Work Phone: Start: 04-24-2024 End: 04-24-2024 Evaluation and management of [facility] Start: 04-01-2024 End: 04-01-2024 ambulatory Letty Ryan Facility:[facility] Start: 04-01-2024 End: 04-01-2024 Patient encounter procedure Letty Ryan [facility] Start: 02-07-2024 ambulatory Jim BAH Facility :[facility] Start: 01-02-2024 End: 01-02-2024 ambulatory Mary Ellen L Emilee Facility:[facility] Jazmin Start: 12-28-2023 End: 12-28-2023 ambulatory [facility] Start: 12-08-2023 End: 12-08-2023 ambulatory [facility] Start: 12-04-2023 End: 12-04-2023 ambulatory Jim BAH Facility: [place] Start: 12-04-2023 End: 12-04-2023 Patient encounter procedure [facility] Start: 07-14-2023 End: 07-14-2023 Lab Drop off Mary Ellen L Emilee [facility] Start: 12-28-2022 End: 12-28-2022 Patient encounter procedure Grzegorz BUSTILLO [facility] [place] Start: 12-14-2022 End: 12-14-[address] JOHANNA BLANDON . Facility: Start: 11-22-2022 End: 11-22-2022 Patient encounter procedure Grzegorz Argenis ORTIZL [facility] [place] Start: 10-11-2022 End: 10-12-[address] JOHANNA BLANDON . Facility: Start: 02-24-2022 Encounter for genera l adult medical examination without abnormal findings DR JOHANNA BLANDON . [facility] Start: 02-19-2022 End: 02-20-[address] JOHANNA BLANDON . Facility: Start: 02-19-2022 End: 02-20-2022 Encounter for general adult medical examination without abnormal findings DR JOHANNA BLANDON . Facility:[facility] Procedures Date Procedure Procedure Detail Performing Clinician Start: 12-14-2022 Colonoscopy Grzegorz NI LL Start: 02-19-[address] JOHANNA FRASERT . Comment on above: Performed By: #### P [facility] #### [facility] [address] [place] [address] Dr. Anup Paez Start: 04-29-2019 Transrectal biopsy [...] Author Start: 12-09-2024 ambulatory Ambulatory Facility:[facility] [place] Renal function 1999 panel - Serum or Plasma [facility] Renal function 1999 panel - Serum or Plasma [facility] Immunizations Immunization Date Immunization Notes Care Provider Fa cility 06-09-2022 influenza virus vaccine, unspecified formulation Grzegorz BUSTILLO [facility] [place] 09-21-2021 SARS-CoV-2 (COVID-19 ) mRNA BNT-162b2 maurix Grzegorz ORTIZL [facility] [place] 01-05-2021 SARS-CoV-2 (COVID-19 ) mRNA BNT-162b2 maurix Grzegorz NILL [facility] [place] 12-14-2020 SARS-CoV-2 (COVID-19 ) mRNA BNT-162b2 maurix Grzegorz ORTIZL [facility] [place] Payers Date Payer Category Payer Private Health Insurance [id number] 1957 Medicare [id number] 1957 Unknown [id number] 1957 Unknown [id number] 1955 Unknown [id number] 2.16.84 0.1.549870.3.579.2.593 1955 Unknown [id number] 2.16.84 0.1.516035.3.579.2.593 1955 Unknown [id number] 2.16.84 0.1.572033.3.579.2.593 1955 Unknown [id number] 2.16.8 40.1.049580.3.579.2.128 1955 Unknown [id number] 2.16.8 40.1.908388.3.579.2.128 1955 Unknown [id number] 2.16.8 40.1.148286.3.579.2.1286 1955 Unknown [id number] 2.16.8 40.1.634443.3.579.2.128 1955 Unknown [id number] 2.16.8 40.1.480114.3.579.2.128 1955 Unknown [id number] 2.16.8 40.1.458681.3.579.2.1286 1955 Unknown [id number] 2.16.8 40.1.798730.3.579.2.727 1955 Unknown [id number] 2.16.8 40.1.970841.3.579.2.727 1957 Unknown [id number] 2.16.8 40.1.963710.3.579.2.727 1957 Unknown [id number] 2.16.8 40.1.519575.3.579.2.727 1955 Unknown [id number] 2.16.8 40.1.960635.3.579.2.727 1955 Unknown [id number] 2.16.8 40.1.008033.3.579.2.727 Self-pay Self Pay [id number] Social History Date Type Detail Facility Start: 11-22-2022 End: 04-25-2024 Tobacco smoking status Never smoked tobacco (finding) [facility] [place] Tobacco smoking status Never [facility] [place] Sex Assigned At Male [facility] Start: 1955 Sex Assigned At Male Donnie [facility] Functional Status Date Assessment Result Facility 04-01-2024 Functional Status N/A [facility] 12-04-2023 Functional Status N/A [facility] 11-22-2022 Functional Status N/A [facility] Clinical Notes 12-14-2022 to 05-27-2024 Note Date [...] chest wo IV contrast Narrative: [facility] Department of Radiology [address] [place] [address] ====== Patient Name: MAXIMINO CLARKE : 1955 Sex: M Age: Race: Black^Black/ Pt. Location: [id number] Patient Status: O (more content not included)... [facility] 12-08-2023 Note Cardiology Clinic No te Chief [...] CT chest wo IV contrast Narrative: [facility] (more content not included)... [facility] 12-04-2023 Hospital Discharge instructions Patient Education 12/04/2023 [...] urethra. Follow these instructions at home: Take trul-gyv-bwlpybn and prescription medicines only as told by [...] provider. Document Revised: 04/06/2022 Document Reviewed: 04/06/2022 [employer] Patient Education 2022 [employer]. Follow Up Care 08/29/2023 09:19:56 With:Jim BAH MD, URL Address: [facility] [address] , [place] [address]- [phone] When:Within 1 Year(s) Comments:with PSA With:Jim BAH MD, URL Address: [facility] [address], [place] [address]- [phone] When: Unknown [facility] 12-14-2022 Note OPERATIVE NOTE OPERATION DATE: 12/14/2022 [...] CC: Johanna Blandon M.D. [facility] Evaluation + Plan note No data available for this section General Surgery [place] Evaluation + Plan note Future Appointments Appointment Date:10/13/2023 01:00:00 PM Scheduled Provider:Mary Ellen Dela Cruz Location:[facility] Appointment Type:FM [facility] Evaluation + Plan note Future Appointments Appointment Date:12/09/2024 08:45:00 AM Scheduled Provider:Jim BAH MD Location:[facility] Appointment Type:URO Office Visit Diagnostic Tests PendingPSA Total 12/04/23 [facility] Evaluation + Plan note Future Appointments Appointment Date:12/09/2024 08:45:00 AM Scheduled Provider:Jim BAH MD Location:[facility] Appointment Type:URO Office Visit [facility] Evaluation note Diagnosis Onset Date BPH (benign prostatic hyperplasia) acute CAD (coronary artery disease) acute CKD (chronic kidney disease) stage 3, GFR 30-59 ml/min acute Hyperlipidemia acute [id number] acute Pancreatic cyst acute Secondary hyperparathyroidism acute Thrombocytopenia acute [facility] Work Phone: Evaluation note* Diagnosis Onset Date Resolution Status BPH (benign prostatic hyperplasia) acute CAD (coronary artery disease) acute CKD (chronic kidney disease) stage 3, GFR 30-59 ml/min acute Hyperlipidemia acute [id number] acute Pancreatic cyst acute Secondary hyperparathyroidism acute Thrombocytopenia acute BPH (benign prostatic hyperplasia) acute CAD (coronary artery disease) acute CKD (chronic kidney disease) stage 3, GFR 30-59 ml/min acute Hyperlipidemia acute [id number] acute Pancreatic cyst acute Secondary hyperparathyroidism acute Thrombocytopenia acute [facility] Work Phone: Hospital Discharge instructions No data available for this section General Surgery [place] note No data available for this section General Surgery [place] Reason for referral (narrative) , EUS Referred by: Letty Ryan MD [facility] Summary Purpose Family History [...] disease) stage 3, GFR 30-59 ml/min Hyperlipidemia [id number] Pancreatic cyst Secondary hyperparathyroidism Thrombocytopenia Chief Complaint Stage 3 kidney disea se RENAL 2 months Reason for Visit BPH (benign prostati c hyperplasia) CAD (coronary artery disease) CKD (chronic kidney disease) stage 3, GFR 30-59 ml/min Hyperlipidemia [id number] Pancreatic cyst Secondary hyperparathyroidism Thrombocytopenia BPH (benign prostatic hyperplasia) CAD (coronary artery disease) CKD (chronic kidney disease) stage 3, GFR 30-59 ml/min Hyperlipidemia [id number] Pancreatic cyst Secondary hyperparathyroidism Thrombocytopenia Additional Source Comments (unrecognized sect ion and content) No Status Records FoundNo Status Records FoundNo Status Records FoundNo Status Records FoundNo Status Records FoundNo Status Records Found INFORMATION SOURCE (unrecogn ized section and content) DATE CREATED AUTHOR 09/11/2020 [facility] DATE CREATED AUTHOR AUTHOR'S ORGANIZ ATION 11/20/2021 [facility] DATE CREATED AUTHOR AUTHOR'S ORGANIZ ATION 12/21/2022 [facility] DATE CREATED AUTHOR AUTHOR'S ORGANIZ ATION 05/05/2024 [facility] DATE CREATED AUTHOR AUTHOR'S ORGANIZ ATION 10/13/2024 [facility] DATE CREATED AUTHOR AUTHOR'S ORGANIZ ATION 11/15/2024 [facility] Patient Care team informatio n (unrecognized [...] BE BASED ON THE PRIMARY CLINICAL RECORDS. [employer] provides no warranty or guarantee of the accuracy or completeness of information in this document.
[2024-11-15 12:41] LABS: Chol HDL Ratio 2.7; Cholesterol 124 mg/dL (<=200); HDL Cholesterol 46 mg/dL (40-60); LDL Cholesterol Calculated 66.4 mg/dL; Triglycerides 58 mg/dL (<=150); VLDL CHOLESTEROL 11.6 mg/dL
== END 2024-11-15 11:31 | disposition home or self-care (01) ==
LOC: LAB 11:32
PROVIDERS: PCP Nurse Practitioner; Visit Provider Internal Medicine Cardiovascular Disease
DX: E78.1 Pure hyperglyceridemia (principal)
CPT/HCPCS: 36415; 80061

== ENCOUNTER 2024-11-15 11:35 | Outpatient (OUT) | payer MEDICARE, SELFPAY ==
--- OUTSIDE RECORDS SUMMARY | 2024-11-15 11:54 | XMS_ITS | CCD ---
Author Organization [facility] Care Team Providers Care Lining Marker Name Role Phone JOHANNA BLANDON Primary Care Physician AMIRA ., DR JOHANNA Reyes Primary Care Unavailable NILL ., DR DEVI Admitting Unavailable NILL ., DR DEVI Attending Unavailable NILL ., DR DEVI Consulting Unavailable DAVIN FRAGA Consulting Unavailable LISANDRA TUTTLE Consulting Unavailable BLANDON ., DR JOHANNA Reyes Admitting Unavailable BLANDON ., DR JOHANNA Reyes Attending Unavailable BLANDON ., DR JOHANNA Reyes Consulting Unavailable BLANDNO ., DR JOHANNA Reyes Primary Care Unavailable BLANDON ., DR JOHANNA Reyes Admitting Unavailable BLANDON ., DR JOHANNA Reyes Attending Unavailable BLANDON ., DR JOHANNA Reyes Consulting Unavailable BLANDON ., DR JOHANNA Reyes Primary Care Unavailable JOHANNA BLANDON Primary Care Physician [phone] Mary Ellen Hebert Primary Care Physician [phone] SURINDER ESCALONA Admitting Unavailable ALASTAL, YASEEN S [...] Medication Allergies] Propensity to adverse reactions (disorder) [facility] Repository Medications Current Medications Medication Drug [...] Daily, # 30 tab(s), Refills(s) 11, [id number] 174, cm, 12/04/23 9:07:00 EST, Height/Length Dosing, [...] inh, Inhalation, BID, 1 EA, Refill(s) 11, [id number], 172.7, cm, 07/14/23 13:11:00 EDT, Height/Length Dosing, [...] BID, # 180 tab(s), Refills(s) 3, Pharmacy: [facility] #[id number], 174, cm, 01/02/24 10:21:00 EDT, Height/Length Dosing, [...] Daily, # 90 cap(s), Refills(s) 0, [id number], 174, cm, 04/01/24 9:33:00 EDT, Height/Length Dosing, [...] for 30 day(s), 30 tab(s), Refill(s) 0, [facility] #[id number], 172.7, cm, 11/22/22 15:44:00 EST, Height/Length Dosing, [...] Coronary arteriosclerosis; 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: [Atherosclerotic heart disease of [place] coronary artery without angina pectoris] Onset: 3 [...] Onset: 3 Episodic Other aftercare (1 source) 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; 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] Onset: 3 Episodic [...] DHALIWAL, Jim More Where: [facility] [place] [id number]- Medications What How Much When Why Instructions Unchanged albuterol (albuterol 0.083% Inh Anne 3 mL) 3 Milliliter Nebulized inhalation (aerosol) Every 6 hours Unchanged alfuzosin (alfuzosin 10 mg ER Tab) 1 Tablets By Mouth Every day Unchanged amoxicillin-clavulanat e (amoxicillin-clavulana te 875 mg-125 mg Tab) 1 Tablets By Mouth Every 12 hours Duration: 10 Days Pickup at [facility] #[id number] Unchanged aspirin 81 Milligram Chewed Every day [...] Tablets By Mouth Every day Pharmacy Information [facility] #[id number]: [address], [place] [id number] [phone] Medications and Immunizations Administered Given Kenalog-40, 60 [...] choosing us for your care. Normal [facility] Family Medicine Office/Clini c Noteon 10-07-2024 [...] for 10 day(s), 20 tab(s), Refill(s) 0, [facility] #[id number], 174, cm, 10/07/24 15:26:00 EST, Height/Length Dosing, [...] (COVID-19) mRNA BNT-162b2 vax 12/14/2020 Recorded Normal [facility] Comment on above: Result Comment: Elec tronically Signed By: Mary Ellen Dela Cruz\.dipti\Date and Time Signed: 10/07/24 15:38 EST Office Visiton 05-27-2024 Follow-up visit [id number] Padmini Clarke 1955 M Date Provider Department Center 05/27/2024 3848-KAT VASQUEZ [facility] Family History Problem Relation Age of Onset Hypertension Mother Cancer Mother Family Status - Relation Status Age at Mother Level of Service:36284 MS OFFICE/OUTPATIENT ESTABLISHED MOD MDM 30 MIN Normal [facility] Surgical Pathologyon 024 Surgical Pathology Normal [facility] Comment on above: Result Comment: [facility] [address] [place] [address] Surgical Pathology Consultation Patient Name:MAXIMINO CLARKE:1955 (Age: 69)Gender:MTaken:04/30/2024eported:05/02/2024hysician(s):Surinder Escalona MD ( )Copy To: Rec. #:[id number]: #[id number] Final Pathologic Diagnosis Gastric biopsy: Mild chronic gastritis with intestinal metaplasia present. Negative for helicobacter organisms on routine H&E examination Negative for dysplasia or malignancy. Report Electronically Signed Out st05/02/2024Lorena Bowles MD Interpretation performed at [facility], [address] [place], [address], License number: [id number]. Clinical History Pancreatic cyst, abdominal pain. 1. H pylori screen Gross Description Received in formalin, labeled VINCE, gastric biopsy are multiple pink-del angel soft tissue fragments aggregating 1.3 x 0.5 x 0.1 cm. The specimen is filtered and entirely submitted in one cassette. (1, ns, [id number], ) MW mxw/04/30/2024GR Specimen(s) Received Gastric biopsy Fee Codes(s): 1; 14412 36on 04-15-2024 SARS-CoV-2 (COVID-19) RNA NIEVES+probe Ql (Unsp spec) 04/15/24@1000 Patients called stating that Maximino tested positive for COVID today, per [facility] policy he needs to wait 10 days from his positive test to be scheduled. Patient is rescheduled for 04/30/24 arriving at 0945 for a 1145 procedure with a PAT call on 04/23/24 in the am. [facility] 36on 04-09-2024 36 Scheduled EGD/EUS/Pancreatic Cyst/Abd Pain 04/19/24 @1200, PTH, Dr. Escalona, PAT ph: 04/12/24 @1130, #[id number], Ref Dr. Ryan in [place] 04/03/24. [facility] Telephoneon 04-09-2024 Telephone [id number] Padmini Clarke E 1955 M Date Provider Department Center 04/09/2024 [id number]-SVBBAMODE VÁZQUEZ [facility] Family History Problem Relation Age of Onset Hypertension Mother Cancer Mother Family Status - Relation Status Age at Mother [facility] Gastroenterology Office/Clin ic Noteon 04-01-2024 [...] 01/05/2021 R (more content not included)... Normal [facility] Comment on above: Result Comment: Elec tronically Signed By: Connor DHALIWAL, Letty Argueta\.br\Date and Time Signed: 04/01/24 10:29 EDT\.br\Electronically Co-Signed By: Liliana Garcia MA\.br\Date and Time Co-Signed: 04/01/24 10:24 EDT Physician Referralon 024 Physician Referral [id number]. 00TIFF Normal [facility] Physician Referralon 024 Physician Referral [id number]. 00TIFF Normal [facility] RAD - CT Reporton 01-26-2024 RAD - CT Report [id number]#1.0 0TIFF [facility] Physician Orderon 01-03-2024 Physician Order [id number]#1.0 0TIFF [facility] Ambulatory Visit Summaryon 0 01-02-2024 Ambulatory [...] DHALIWAL, Jim More Where: [facility] Family Medicine Office/Clini c Noteon [...] (COVID-19) mRNA BNT-162b2 vax 12/14/2020 Recorded Normal [facility] Comment on above: Result Comment: Elec tronically Signed By: Mary lElen Dela Cruz\.br\Date and Time Signed: 01/02/24 11:42 EDT Physician Orderon 01-02-2024 Physician Order [id number]#1.0 0TIFF Normal [facility] Ambulatory Visit Summaryon 0 12-28-2023 [...] DHALIWAL, Jim More Where: [facility] Jazmin Normal [facility] Consenton 12-28-2023 Consent [id number] 0TIFF Normal [facility] Family Medicine Office/Clini c Noteon [...] day(s), # 14 tab(s), Refills(s) 0, Pharmacy: [facility] #[id number], 174, cm, 12/28/23 8:31:00 EDT, Height/Length Dosing, 93.3, kg, 12/28/23 8:31:00 EDT, Weight Dosing 4. Non-smoker (Z78.9: Other specified health status) continue not smoking Ordered: amoxicillin-clavulanat e, = 1 tab(s), Oral, q12hr, X 7 day(s), # 14 tab(s), Refills(s) 0, Pharmacy: [facility] #[id number], 174, cm, 12/28/23 8:31:00 EDT, Height/Length Dosing, 93.3, kg, 12/28/23 8:31:00 EDT, Weight Dosing 5. Hypertension (I10: Essential (primary) hypertension) BP continues to run high. education liaison started him on carvedilol we will increase that dose today. he does not have any follow up appointments scheduled with cardiology and they are leaving on a cruise next week. RTC 4 weeks for BP check. Orders: carvedilol, 12.5 mg = 1 tab(s), Oral, BID, # 60 tab(s), Refills(s) 0, Pharmacy: [facility] #[id number], 174, cm, 12/28/23 8:31:00 EDT, Height/Length Dosing, [...] Recorded SARS (more content not included)... Normal [facility] Comment on above: Result Comment: Elec tronically Signed By: Mary Ellen Dela Cruz\.br\Date and Time Signed: 12/28/23 08:48 EDT Office Visiton 12-08-2023 Follow-up visit [id number] Padmini Clarke 1955 M Date Provider Department Center 12/08/2023 [facility]8-KAT [facility] Family History Problem Relation Age of Onset Hypertension Mother Cancer Mother Family Status - Relation Status Age at Mother Level of Service:33170 MS OFFICE/OUTPATIENT ESTABLISHED MOD MDM 30 MIN Reason for Visit and Comments: Follow-up [801094] [facility] Ambulatory Visit Summaryon 0 12-04-2023 Ambulatory Visit [...] Jim BAH MD Where: [facility] Patient Educationon 12-04-19 Patient Education [...] Follow these instructions at home: ? Take qejn-tbu-ybijwrh and prescription medicines only as told by [...] the medicine (more content not included)... Normal [facility] Urology Office/Clinic Noteon 12-04-2023 Urology Office/Clinic [...] [facility] [address], [place] [address] [phone] Additional Instructions: with PSA Patient Education Benign [...] mcg/inh i (more content not included)... Normal [facility] Comment on above: Result Comment: [...] 51 mL/min/1.73 m2 Low >=59mL/min/[address] [facility] Chem S Comment on [...] used for this result was chemiluminescence using [employer]br[employer] PSA reagent. Protein [Mass/Vol] 7.8 [...] above: Performed By: #### C BC #### [facility] [address] [address] [address] Anup Paez Basophils/100 WBC (Bld) 0.4 % Normal 0.2-2.0 [facility] Comment on above: Performed By: #### C BC #### [facility] [address] [address] [address] Anup Paez EO # 0.0 103/ul Normal 0.0-0.7 [facility] Comment on above: Performed By: #### C BC #### [facility] [address] [place] [address] [address] Anup Paez Eosinophils/100 WBC (Bld) 0.1 % Critically low 0.9-7.0 [facility] Comment on above: Performed By: #### C BC #### [facility] [address] [place] [address] [address] Anup Paez Erythrocyte distribution width (RBC) [Ratio] 13.2 % Normal 11.0-15.0 [facility] Comment on above: Performed By: #### C BC #### [facility] [address] [place] [address] Dr. Anup Paez Hematocrit (Bld) [Volume fraction] 43.2 % Normal 42.0-54.0 [facility] Comment on above: Performed By: #### C BC #### [facility] [address] [place] [address] Dr. Anup Paez Hemoglobin (Bld) [Mass/Vol] 14.7 g/dL Normal 14.0-18.0 [facility] Comment on above: Performed By: #### C BC #### [facility] [address] [place] [address] Dr. Anup Paez IG # 0.03 10e3/ul Normal 0.00-0.03 [facility] Comment on above: Performed By: #### C BC #### [facility] [address] [place] [address] Dr. Anup Paez IG % 0.4 % Normal 0.0-0.5 [facility] Comment on above: Performed By: #### C BC #### [facility] [address] [place] [address] Dr. Anup Paez LYMPH # 1.2 103/ul Normal 1.2-3.8 [facility] Comment on above: Performed By: #### C BC #### [facility] [address] [place] [address] Dr. Anup Paez Lymphocytes/100 WBC (Bld) 14.8 % Critically low 20.5-60.0 [facility] Comment on above: Performed By: #### C BC #### [facility] [address] [place] [address] Dr. Anup Paez MANUAL DIFF REQ NO Normal [facility] Comment on above: Performed By: #### C BC #### [facility] [address] [place] [address] Dr. Anup Paez MCH (RBC) [Entitic mass] 30.3 pg Normal 25.9-34.0 [facility] Comment on above: Performed By: #### C BC #### [facility] [address] [address] [address] Anup Paez MCHC (RBC) [Mass/Vol] 34.0 g/dL Normal 29.9-35.2 [facility] Comment on above: Performed By: #### C BC #### [facility] [address] [address] [address] Aunp Paez MCV (RBC) [Entitic vol] 89.1 fL Normal 80.0-94.0 [facility] Comment on above: Performed By: #### C BC #### [facility] [address] [address] [address] Anup Paez MONO # 0.5 103/ul Normal 0.3-0.8 [facility] Comment on above: Performed By: #### C BC #### [facility] [address] [place] [address] Dr. Anup Paez Monocytes/100 WBC (Bld) 5.5 % Normal 1.7-12.0 [facility] Comment on above: Performed By: #### C BC #### [facility] [address] [address] [address] Anup Paez NEUT # 6.6 103/ul Critically high 1.4-6.5 [facility] Comment on above: Performed By: #### C BC #### [facility] [address] [place] [address] Dr. Anup Paez Neutrophils/100 WBC (Bld) 78.8 % Critically high 43.0-75.0 [facility] Comment on above: Performed By: #### C BC #### [facility] [address] [address] [address] Anup Paez Platelet mean volume (Bld) [Entitic vol] 11.9 fL Normal 9.5-13.5 [facility] Comment on above: Performed By: #### C BC #### [facility] [address] [address] [address] Anup Paez PLT 140 103/ul Critically low 150-450 [facility] Comment on above: Performed By: #### C BC #### [facility] [address] [place] [address] Dr. Anup Paez RBC 4.85 106/ul Normal 4.70-6.10 [facility] Comment on above: Performed By: #### C BC #### [facility] [address] [place] [address] Dr. Anup Paez WBC 8.3 103/ul Normal 4.0-11.0 [facility] Comment on above: Performed By: #### C BC #### [facility] [address] [place] [address] Dr. Anup Paez FREE T3on 10-11-2022 FREE T3 2.36 pg/mlL Normal 2.18-3.98 [facility] Comment on above: Performed By: #### F T3 #### [facility] [address] [place] [address] Dr. Anup Paez FREE T4on 10-11-2022 Free T4 [Mass/Vol] 0.97 ng/dL Normal 0.76-1.46 [facility] Comment on above: Performed By: #### F T4 #### [facility] [address] [place] [address] Dr. Anup Paez TSHon 10-11-2022 TSH 0.231 uIU/mL Critically low 0.358-3.740 [facility] Comment on above: Performed By: #### T SH #### [facility] [address] [place] [address] Dr. Anup Paez CBC AUTO DIFFon 02-19-2022 BASO # 0.1 103/ul Normal 0.0-0.1 [facility] Comment on above: Performed By: #### C BC #### [facility] [address] [place] [address] Dr. Anup Paez Basophils/100 WBC (Bld) 1.1 % Normal 0.2-2.0 [facility] Comment on above: Performed By: #### C BC #### [facility] [address] [place] [address] Dr. Anup Paez EO # 0.2 103/ul Normal 0.0-0.7 [facility] Comment on above: Performed By: #### C BC #### [facility] [address] [place] [address] Dr. Anup Paez Eosinophils/100 WBC (Bld) 4.4 % Normal 0.9-7.0 [facility] Comment on above: Performed By: #### C BC #### [facility] [address] [place] [address] Dr. Anup Paez Erythrocyte distribution width (RBC) [Ratio] 12.9 % Normal 11.0-15.0 [facility] Comment on above: Performed By: #### C BC #### [facility] [address] [place] [address] Dr. Anup Paez Hematocrit (Bld) [Volume fraction] 44.4 % Normal 42.0-54.0 [facility] Comment on above: Performed By: #### C BC #### [facility] [address] [place] [address] Dr. Anup Paez Hemoglobin (Bld) [Mass/Vol] 14.4 g/dL Normal 14.0-18.0 [facility] Comment on above: Performed By: #### C BC #### [facility] [address] [place] [address] Dr. Anup Paez IG # 0.01 10e3/ul Normal 0.00-0.03 [facility] Comment on above: Performed By: #### C BC #### [facility] [address] [place] [address] Dr. Anup Paez IG % 0.2 % Normal 0.0-0.5 [facility] Comment on above: Performed By: #### C BC #### [facility] [address] [place] [address] Dr. Anup Paez LYMPH # 1.6 103/ul Normal 1.2-3.8 [facility] Comment on above: Performed By: #### C BC #### [facility] [address] [place] [address] Dr. Anup Paez Lymphocytes/100 WBC (Bld) 35.8 % Normal 20.5-60.0 [facility] Comment on above: Performed By: #### C BC #### [facility] [address] [place] [address] Dr. Anup Paez MANUAL DIFF REQ NO Normal [facility] Comment on above: Performed By: #### C BC #### [facility] [address] [place] [address] Dr. Anup Paez MCH (RBC) [Entitic mass] 30.1 pg Normal 25.9-34.0 [facility] Comment on above: Performed By: #### C BC #### [facility] [address] [place] [address] Dr. Anup Paez MCHC (RBC) [Mass/Vol] 32.4 g/dL Normal 29.9-35.2 [facility] Comment on above: Performed By: #### C BC #### [facility] [address] [place] [address] Dr. Anup Paez MCV (RBC) [Entitic vol] 92.7 fL Normal 80.0-94.0 [facility] Comment on above: Performed By: #### C BC #### [facility] [address] [place] [address] Dr. Anup Paez MONO # 0.5 103/ul Normal 0.3-0.8 [facility] Comment on above: Performed By: #### C BC #### [facility] [address] [place] [address] Dr. Anup Paez Monocytes/100 WBC (Bld) 11.6 % Normal 1.7-12.0 [facility] Comment on above: Performed By: #### C BC #### [facility] [address] [place] [address] Dr. Anup Paez NEUT # 2.1 103/ul Normal 1.4-6.5 [facility] Comment on above: Performed By: #### C BC #### [facility] [address] [place] [address] Dr. Anup Paez Neutrophils/100 WBC (Bld) 46.9 % Normal 43.0-75.0 [facility] Comment on above: Performed By: #### C BC #### [facility] [address] [address] [address] Anup Paez Platelet mean volume (Bld) [Entitic vol] 12.0 fL Normal 9.5-13.5 [facility] Comment on above: Performed By: #### C BC #### [facility] [address] [address] [address] Anup Paez PLT 107 103/ul Critically low 150-450 [facility] Comment on above: Performed By: #### C BC #### [facility] [address] [address] [address] Anup Paez RBC 4.79 106/ul Normal 4.70-6.10 [facility] Comment on above: Performed By: #### C BC #### [facility] [address] [place] [address] Dr. Anup Paez WBC 4.6 103/ul Normal 4.0-11.0 [facility] Comment on above: Performed By: #### C BC #### [facility] [address] [place] [address] Dr. Anup Paez LIPID PROFILEon 02-19-2022 CHOL-HDL RATIO NORM SEE BELOW Normal [facility] Comment on above: Result Comment: 3.3 - 4.4 LOW RISK 4.4 - 7.1 AVERAGE RISK 7.1 - 11.0 MODERATE RISK >11.0 HIGH RISK Performed By: #### C MP, LIPID #### [facility] [address] [place] [address] Dr. Anup Paez Cholesterol [Mass/Vol] 120 mg/dL Normal <=200 [facility] Comment on above: Performed By: #### C MP, LIPID #### [facility] [address] [place] [address] Dr. Anup Paez Cholesterol in HDL [Mass/Vol] 33 mg/dL Critically low 40-60 [facility] Comment on above: Performed By: #### C MP, LIPID #### [facility] [address] [address] [address] Anup Paez Cholesterol in LDL [Mass/Vol] 68.2 mg/dL Normal [facility] Comment on above: Performed By: #### C MP, LIPID #### [facility] [address] [address] [address] Anup Paez Cholesterol.total/Cho lesterol in HDL [Mass ratio] 3.6 {ratio} Normal [facility] Comment on above: Performed By: #### C MP, LIPID #### [facility] [address] [address] [address] Anup Paez HDL NORMAL > or = 60 mg/dl - LO W CARDIOVASCULAR RISK <40 mg/dl - HIGH CARDIOVASCULAR RISK Normal [facility] Comment on above: Performed By: #### C MP, LIPID #### [facility] [address] [place] [address] Dr. Anup Paez LDL CALC NORMAL SEE BELOW Normal [facility] Comment on above: Result Comment: <100 mg/dl OPTIMAL 100 - 129 mg/dl NEAR OR ABOVE OPTIMAL 130 - 159 mg/dl BORDERLINE HIGH 160 - 189 mg/dl HIGH >190 mg/dl VERY HIGH Performed By: #### C MP, LIPID #### [facility] [address] [place] [address] Dr. Anup Paez Triglyceride [Mass/Vol] 94 mg/dL Normal <=150 [facility] Comment on above: Performed By: #### C MP, LIPID #### [facility] [address] [place] [address] Dr. Anup Paez VLDL CALC 18.8 mg/dL Normal [facility] Comment on above: Performed By: #### C MP, LIPID #### [facility] [address] [address] [address] Anup Paez PROF 14(COMP METB)on 022 Albumin [Mass/Vol] 3.6 g/dL Normal 3.4-5.0 [facility] Comment on above: Performed By: #### C MP, LIPID #### [facility] [address] [place] [address] Dr. Anup Paez Albumin/Globulin [Mass ratio] 1.0 {ratio} Normal [facility] Comment on above: Performed By: #### C MP, LIPID #### [facility] [address] [address] [address] Anup Paez ALP [Catalytic activity/Vol] 97 U/L Normal 46-116 [facility] Comment on above: Performed By: #### C MP, LIPID #### [facility] [address] [address] [address] Anup Paez ALT [Catalytic activity/Vol] 33 U/L Normal 16-63 [facility] Comment on above: Performed By: #### C MP, LIPID #### [facility] [address] [address] [address] Anup Paez Anion gap [Moles/Vol] 11.5 mmol/L Normal [facility] Comment on above: Performed By: #### C MP, LIPID #### [facility] [address] [address] [address] Anup Paez AST [Catalytic activity/Vol] 21 U/L Normal 15-37 [facility] Comment on above: Performed By: #### C MP, LIPID #### [facility] [address] [address] [address] Anup Paez Bilirubin [Mass/Vol] 0.4 mg/dL Normal 0.2-1.0 [facility] Comment on above: Performed By: #### C MP, LIPID #### [facility] [address] [address] [address] Anup Paez Calcium [Mass/Vol] 8.5 mg/dL Normal 8.5-10.1 [facility] Comment on above: Performed By: #### C MP, LIPID #### [facility] [address] [address] [address] Anup Paez Chloride [Moles/Vol] 106 mmol/L Normal 98-107 [facility] Comment on above: Performed By: #### C MP, LIPID #### [facility] [address] [address] [address] Anup Paez CO2 [Moles/Vol] 26.3 mmol/L Normal 21.0-32.0 [facility] Comment on above: Performed By: #### C MP, LIPID #### [facility] [address] [address] [address] Anup Paez Creatinine [Mass/Vol] 1.26 mg/dL Normal 0.70-1.30 [facility] Comment on above: Performed By: #### C MP, LIPID #### [facility] [address] [address] [address] Anup Paez EGFR-AF OMANI >60 Normal >=60 [facility] Comment on above: Performed By: #### C MP, LIPID #### [facility] [address] [address] [address] Anup Paez EGFR-NON AF OMANI 57 mL/min/1.73m2 Critically low >=60 [facility] Comment on above: Performed By: #### C MP, LIPID #### [facility] [address] [address] [address] Anup Paez Globulin (S) [Mass/Vol] 3.6 g/dL Normal [facility] Comment on above: Performed By: #### C MP, LIPID #### [facility] [address] [address] [address] Anup Paez Glucose [Mass/Vol] 95 mg/dL Normal 74-106 [facility] Comment on above: Performed By: #### C MP, LIPID #### [facility] [address] [address] [address] Anup Paez Potassium [Moles/Vol] 3.8 mmol/L Normal 3.5-5.1 [facility] Comment on above: Performed By: #### C MP, LIPID #### [facility] [address] [address] [address] Anup Paez Protein [Mass/Vol] 7.2 g/dL Normal 6.4-8.2 [facility] Comment on above: Performed By: #### C MP, LIPID #### [facility] [address] [address] [address] Anup Paez Sodium [Moles/Vol] 140 mmol/L Normal 136-145 [facility] Comment on above: Performed By: #### C MP, LIPID #### [facility] [address] [place], [place] [address] Dr. Anup Paez Urea nitrogen [Mass/Vol] 16.0 mg/dL Normal 7.0-18.0 [facility] Comment on above: Performed By: #### C MP, LIPID #### [facility] [address] [place], [place] [address] Dr. Anup Paez Urea nitrogen/Creatinine [Mass ratio] 12.7 mg/mg Normal [facility] Comment on above: Performed By: #### C MP, LIPID #### [facility] [address] [place], [place] [address] Dr. Anup Paez PSA Total (Not a Screen)on 0 04-01-2021 PSA Total (Not a Screen) 0.620 ng/mL Normal 0.000-4.000 [facility] Comment on above: Result Comment: PERF ORMED BY: [place] [address] PATHOLOGIST POLICE COMMUNICATIONS OPERATOR MARITZA MONTANO M.D. Performed By: #### P SATOTAL #### [address] XR ankle LT min 3V*on 2020 XR ankle LT min 3V* [facility] [place] [address] XRay Report Signed Patient: Maximino Clarke MR#: [id number] : 1955 Acct:[id number] Age/Sex: 65 / M ADM Date: 01/11/21 Loc: XDUCLY Room: Type: [facility] Attending Dr: Ailin PARRA Ordering Provider: [...] Dinora Brink M.D.01/11/2021 12:35 PM Dictation Location: [place] [address] Transcribed By: [facility] 01/11/21 1235 Dictated By: Dinora Brink MD 01/11/21 1234 Signed By: 01/11/21 1235 [facility] Pulmonary Functionon 020 Pulmonary Function MR #: [id number] [facility] PT. Name: Maximino Clarke Date: 08/14/2020 [...] Scruggs MD Date Trans: 08/23/2020 05:28 P/ [id number]_JN:[id number] cc: Johanna Blandon M.D. [address] [place] [phone] Normal [facility] ARTERIAL BLOOD GAS W/COOXon 08-14-2020 BASE EXCESS 0 mmol/L Normal -2-3 [facility] Comment on above: Performed By: #### 4 0055 #### [facility] [address] [place] [address], [facility] COHB 1.2 % Normal 0.0-1.5 [facility] Comment on above: Performed By: #### 4 0055 #### [facility] [address] [place] [address], [facility] DELIVERY SYSTEMS ROOM AIR Normal [facility] Comment on above: Performed By: #### 4 0055 #### [facility] [address] [place] [address], [facility] FIO2 0 % Normal [facility] Comment on above: Performed By: #### 4 0055 #### [facility] [address] [place] [address], [place] HCO3 (Bld) [Moles/Vol] 23 mmol/L Normal 21-28 [facility] Comment on above: Performed By: #### 4 0055 #### [facility] [address] [place] [address], [place] METHB 1.0 % Normal 0.0-1.5 [facility] Comment on above: Performed By: #### 4 0055 #### [facility] [address] Oxygen (Bld) [Partial pressure] 88 mm[Hg] Normal 83-108 [facility] Comment on above: Performed By: #### 4 0055 #### [facility] [address] [place] [address], [facility] Oxygen saturation in Blood 95.5 % Normal 94.0-97.0 [facility] Comment on above: Performed By: #### 4 0055 #### [facility] [address] [place] [address], [facility] PCO2 32 mmHg Low 35-45 [facility] Comment on above: Performed By: #### 4 0055 #### [facility] [address] pH (Bld) 7.46 [pH] High 7.35-7.45 [facility] Comment on above: Performed By: #### 4 0055 #### [facility] [address] THB 12.0 g/dL Normal 12.0-16.3 [facility] Comment on above: Performed By: #### 4 0055 #### [facility] [address] Pulmonary Functionon 05-23- 020 Pulmonary Function MR #: [id number] [facility] PT. Name: Maximino Clarke Date: 05/11/2020 [...] Scruggs MD Date Trans: 05/23/2020 05:08 P/ [id number]_JN:[id number] cc: Johanna Blandon M.D. [address] [place] [phone] Normal [facility] ARTERIAL BLOOD GAS W/COOXon 05-11-2020 BASE EXCESS -1 mmol/L Normal -2-3 [facility] Comment on above: Performed By: #### 4 0055 #### [facility] [address] [facility] [place] [address], [facility] COHB 1.5 % Normal 0.0-1.5 [facility] Comment on above: Performed By: #### 4 0055 #### [facility] [address] [facility] [place] [address], [facility] DELIVERY SYSTEMS RA Normal [facility] Comment on above: Performed By: #### 4 0055 #### [facility] [address] [place] [address], [facility] FIO2 0 % Normal [facility] Comment on above: Performed By: #### 4 0055 #### [facility] [address] [place] [address], [facility] HCO3 (Bld) [Moles/Vol] 22 mmol/L Normal 21-28 [facility] Comment on above: Performed By: #### 4 0055 #### [facility] [address] [facility] [place] [address], [facility] METHB 1.0 % Normal 0.0-1.5 [facility] Comment on above: Performed By: #### 4 0055 #### [facility] [address] [facility] [address] Oxygen (Bld) [Partial pressure] 95 mm[Hg] Normal 83-108 [facility] Comment on above: Performed By: #### 4 0055 #### [facility] [address] [facility] [address] Oxygen saturation in Blood 96.5 % Normal 94.0-97.0 [facility] Comment on above: Performed By: #### 4 0055 #### [facility] [address] [facility]. [address] PCO2 31 mmHg Low 35-45 [facility] Comment on above: Performed By: #### 4 0055 #### [facility] [address] [facility] [place] [address], [facility] pH (Bld) 7.46 [pH] High 7.35-7.45 [facility] Comment on above: Performed By: #### 4 0055 #### [facility] [address] [facility] [place] [address], [facility] THB 12.2 g/dL Normal 12.0-16.3 [facility] Comment on above: Performed By: #### 4 0055 #### [facility] [address] *SARS-CoV-2 COVID-19on 05-08 [id number] Not Detected Normal Not Detected [facility] Comment on above: Order Comment: The A ptima SARS-CoV-2 assay is a nucleic acid amplification test intended for the qualitative detection of RNA from SARS-CoV-2 isolated and purified from nasopharyngeal (DIAMOND FINISHING SUPERVISOR),oropharyngeal (OP), nasal swab, sputum, and bronchoalveolar lavage (BAL) specimens from patients with signs and symptoms of infection who are suspected of COVID-19. Results are for the identification of SARS-CoV-2 RNA. The SARS-CoV-2 RNA is generally detectable during the acute phase of infection. The Aptima SARS-CoV-2 Assay on the Avolent and Mcadoo Fusion system is intended for use by laboratory personnel specifically instructed and trained in the operation of the Mcadoo and Mcadoo Fusion system. The Aptima SARS-CoV-2 assay is [...] information. Performed By: #### 3 1792 #### [address] CHEST HIGH RESOLUTION WIT HOUT CONTRASTon 04-22-2020 CT CHEST HIGH RESOLUTION WITHOUT CONTRAST [facility] Department of Radiology [address] [place] [phone] ======== Patient Name: MAXIMINO CLARKE : 1955 Sex: M Age: Race: Black Pt. Location: [facility] Patient Status: O Ordered Date: 03/20/2020 1:35:00 PM Completed Date: 04/22/2020 09:10 AM Requesting Provider: NICKY BORDEN Attending Provider: NICKY BORDEN Report Copy To: JOHANNA BLANDON Signs & Symptoms: J84.9 Interstitial pulmonary disease, unspecified I10 History: [facility] [address] [address] chest[address] auth#[id number] valid 03/24-06/24/2020 phone: [phone] No to all COVID questions - jlr [...] achievable Electronically signed: Ana Dhillon. Transcribed by: [email or web address], User Resident: Electronically Signed by: ANA DHILLON @ 04/22/2020 12:42 PM Normal [facility] Comment on above: Order Comment: Brian cols: inspiratory and excpiratory films for air trapping *SARS-CoV-2 COVID-19on 03-19 [id number] Not Detected Normal Not Detected [facility] Comment on above: Order Comment: The A ptima SARS-CoV-2 assay is a nucleic acid amplification test intended for the qualitative detection of RNA from SARS-CoV-2 isolated and purified from nasopharyngeal (DIAMOND FINISHING SUPERVISOR), nasal and oropharyngeal (OP) swab specimens from patients with signs and symptoms of infection who are suspected of COVID-19. Results are for the identification of SARS-CoV-2 RNA. The SARS-CoV-2 RNA is generally detectable in nasopharyngeal and oropharyngeal swabs during the acute phase of infection. The Aptima SARS-CoV-2 Assay on the Avolent and Mcadoo Fusion system is intended for use by laboratory personnel specifically instructed and trained in the operation of the Mcadoo and Mcadoo Fusion system. The Aptima SARS-CoV-2 assay is [...] information. Performed By: #### 3 1792 #### [facility] [address] Pulmonary Functionon 020 Pulmonary Function MR #: [id number] [facility] PT. Name: Maximino Clarke Date: 01/25/2019 [...] Mcdermott MD Date Trans: 12/10/2019 12:08 Pradeep/ DIMITRIOS_JN:[id number] cc: Johanna Blandon M.D. [address] [place] [phone] [facility] Vital Signs Date Time Vital Sign Value Performing Clinician Facility 06-13-2024 09:490400 Body height 172.72 cm [facility] 06-13-2024 09:49-0400 Body mass index (BMI) [Ratio] 29.6 kg/m2 [facility] 06-13-2024 09:49-0400 Body temperature 96.7 [degF] [facility] 06-13-2024 09:490400 Body weight 88.5 kg [facility] 06-13-2024 09:49-0400 Diastolic blood pressure 91 mm[Hg] [facility] 06-13-2024 09:49-0400 Heart rate 54 /min [facility] 06-13-2024 09:49-0400 Respiratory rate 16 /min [facility] 06-13-2024 09:49-0400 SaO2% (BldA) [Mass fraction] 98 % [facility] 06-13-2024 09:49-0400 Systolic blood pressure 132 mm[Hg] [facility] 04-25-2024 09:50-0400 Body height 172.72 cm [facility] 04-25-2024 09:50-0400 Body mass index (BMI) [Ratio] 29.8 kg/m2 [facility] 04-25-2024 09:50-0400 Body temperature 97.3 [degF] [facility] 04-25-2024 09:50-0400 Body weight 89.07 kg [facility] 04-25-2024 09:50-0400 Diastolic blood pressure 90 mm[Hg] [facility] 04-25-2024 09:50-0400 Heart rate 63 /min [facility] 04-25-2024 09:50-0400 Respiratory rate 16 /min [facility] 04-25-2024 09:50-0400 SaO2% (BldA) [Mass fraction] 96 % [facility] 04-25-2024 09:50-0400 Systolic blood pressure 132 mm[Hg] [facility] 04-01-2024 09:23-0400 Blood Pressure Location Saenz Sarmini [facility] 04-01-2024 09:23-0400 Diastolic blood pressure 80 mm[Hg] Saenz Sarmini [facility] 04-01-2024 09:23-0400 Heart rate 86 /min Saenz Sarmini [facility] 04-01-2024 09:23-0400 Respiratory rate 18 /min Letty Ryan [facility] 04-01-2024 09:23-0400 Systolic blood pressure 126 mm[Hg] Letty Kotharimini [facility] 12-04-2023 08:58-0500 Blood Pressure Location Jim BAH [facility] 12-04-2023 08:58-0500 Body temperature 98.42 [degF] Jim BAH [facility] 12-04-2023 08:58-0500 Diastolic blood pressure 92 mm[Hg] Jimnoreen BAH [facility] 12-04-2023 08:58-0500 Heart rate 90 /min Jimnoreen BAH [facility] 12-04-2023 08:58-0500 Respiratory rate 17 /min Jim BAH [facility] 12-04-2023 08:58-0500 Systolic blood pressure 155 mm[Hg] Jim BAH [facility] 07-14-2023 13:35-0400 Diastolic blood pressure 108 mm[Hg] Mary Ellen Emilee [facility] 07-14-2023 13:35-0400 Mean blood pressure 125 mm[Hg] Mary Ellen Emilee [facility] 07-14-2023 13:35-0400 Systolic blood pressure 158 mm[Hg] Mary Ellen Emilee [facility] 11-22-2022 15:37-0500 Blood Pressure Location Grzegorz BUSTILLO [facility] [place] 11-22-2022 15:37-0500 Diastolic blood pressure 90 mm[Hg] Grzegorz ORTIZArleen [facility] [place] 11-22-2022 15:37-0500 Heart rate 68 /min Grzegorz ORTIZArleen [facility] [place] 11-22-2022 15:37-0500 Respiratory rate 16 /min Grzegorz ORTIZArleen [facility] [place] 11-22-2022 15:37-0500 Systolic blood pressure 126 mm[Hg] Grzegorz ORTIZL [facility] [place] Encounters Encounter Date Encounter Type Care Provider Facility Start: 11-13-2024 End: 11-13-2024 ambulatory [facility] Start: 10-07-2024 End: 10-07-2024 ambulatory Mary Ellen Hebert Facility:[facility] Start: 06-13-2024 End: 06-13-2024 ambulatory [facility] Work Phone: Start: 06-13-2024 End: 06-13-2024 Patient encounter procedure [facility] Work Phone: Start: 05-27-2024 End: 05-28-2024 [facility] Start: 05-02-2024 End: 05-02-2024 Evaluation and management of inpatient SHERLY Stephens O'CASSY [facility] Start: 04-30-2024 End: 05-02-2024 Evaluation and management of inpatient [facility] Start: 04-25-2024 End: 04-25-2024 ambulatory [facility] Work Phone: Start: 04-25-2024 End: 04-25-2024 Patient encounter procedure [facility] Nephrology Elpidio Work Phone: Start: 04-24-2024 End: 04-24-2024 [facility] Start: 04-01-2024 End: 04-01-2024 ambulatory Letty Ryan Facility:[facility] Start: 04-01-2024 End: 04-01-2024 Patient encounter procedure Letty Ryan [facility] Start: 02-07-2024 ambulatory Jim BAH Facility :[facility] Start: 01-02-2024 End: 01-02-2024 ambulatory Mary Ellen L Emilee Facility:[facility] Start: 12-28-2023 End: 12-28-2023 ambulatory [facility] Start: 12-08-2023 End: 12-08-2023 ambulatory [facility] Start: 12-04-2023 End: 12-04-2023 ambulatory Jim BAH Facility: [place] Start: 12-04-2023 End: 12-04-2023 Patient encounter [facility] Start: 07-14-2023 End: 07-14-2023 Lab Drop off Mary Ellen L Emilee [facility] Start: 12-28-2022 End: 12-28-2022 Patient encounter procedure Grzegorz BUSTILLO [facility] [place] Start: 12-14-2022 End: 12-14-[address] JOHANNA BLANDON . Facility: Start: 11-22-2022 End: 11-22-2022 Patient encounter procedure Grzegorz Argenis ORTIZL [facility] [place] Start: 10-11-2022 End: 10-12-[address] JOHANNA BLANDON . Facility: Start: 02-24-2022 Encounter for genera l adult medical examination without abnormal findings DR JOHANNA BLANDON . [facility] Start: 02-19-2022 End: 02-20-[address] JOHANNA BLANDON . Facility: Start: 02-19-2022 End: 02-20-2022 Encounter for general adult medical examination without abnormal findings DR JOHANNA BLANDON . Facility:[facility]1 Procedures Date Procedure Procedure Detail Performing Clinician Start: 12-14-2022 Colonoscopy Grzegorz NI LL Start: 02-19-[address] JOHANNA FRASERT . Comment on above: Performed By: #### [facility] #### [facility] [address] [place] [address] Dr. Anup Paez Start: 04-29-2019 Transrectal biopsy [...] Author Start: 12-09-2024 ambulatory Ambulatory Facility:[facility] [place] Renal function 1999 panel - Serum or Plasma [facility] Renal function 1999 panel - Serum or Plasma [facility] Immunizations Immunization Date Immunization Notes Care Provider Fa cility 06-09-2022 influenza virus vaccine, unspecified formulation Grzegorz BUSTILLO [facility] [place] 09-21-2021 SARS-CoV-2 (COVID-19 ) mRNA BNT-162b2 maurix Grzegorz ORTIZL [facility] [place] 01-05-2021 SARS-CoV-2 (COVID-19 ) mRNA BNT-162b2 maurix Grzegorz NILL [facility] [place] 12-14-2020 SARS-CoV-2 (COVID-19 ) mRNA BNT-162b2 maurix Grzegorz ORTIZL [facility] [place] Payers Date Payer Category Payer Private Health Insurance [id number] 1957 Medicare [id number] 1957 Unknown [id number] 1959 Unknown [id number] 1957 Unknown [id number] 2.16.84 0.1.400642.3.579.2.593 1955 Unknown [id number] 2.16.84 0.1.454367.3.579.2.593 1955 Unknown [id number] 2.16.84 0.1.399856.3.579.2.593 1955 Unknown [id number] 2.16.8 40.1.610338.3.579.2.128 1955 Unknown [id number] 2.16.8 40.1.075755.3.579.2.128 1957 Unknown [id number] 2.16.8 40.1.066480.3.579.2.1286 1955 Unknown [id number] 2.16.8 40.1.801199.3.579.2.128 1957 Unknown [id number] 2.16.8 40.1.680561.3.579.2.128 1957 Unknown [id number] 2.16.8 40.1.696173.3.579.2.1286 1957 Unknown [id number] 2.16.8 40.1.024093.3.579.2.727 1955 Unknown [id number] 2.16.8 40.1.728915.3.579.2.727 1957 Unknown [id number] 2.16.8 40.1.317177.3.579.2.727 1957 Unknown [id number] 2.16.8 40.1.276126.3.579.2.727 1957 Unknown [id number] 2.16.8 40.1.008698.3.579.2.727 1955 Unknown [id number] 2.16.8 40.1.598724.3.579.2.727 Self-pay Self Pay [id number] Social History Date Type Detail Facility Start: 11-22-2022 End: 04-25-2024 Tobacco smoking status Never smoked tobacco (finding) [facility] [place] Tobacco smoking status Never [facility] [place] Sex Assigned At Male [facility] Start: 1955 Sex Assigned At Male Donnie [facility] Functional Status Date Assessment Result Facility 04-01-2024 Functional Status N/A [facility] 12-04-2023 Functional Status N/A [facility] 11-22-2022 Functional Status N/A [facility] Clinical Notes 12-14-2022 to 05-27-2024 Note Date [...] Radiology: CT chest wo IV contrast Narrative: [facility] Department of Radiology [address] [place] [address] ====== Patient Name: MAXIMINO CLARKE : 1955 Sex: M Age: Race: Black^Black/ Pt. Location: 371 Patient Status: O (more content not included)... [facility] 12-08-2023 Note Cardiology Clinic No te Chief [...] Radiology: CT chest wo IV contrast Narrative: [facility] (more content not included)... [facility] 12-04-2023 Hospital Discharge instructions Patient Education [...] urethra. Follow these instructions at home: Take vzvn-yja-iffumey and prescription medicines only as told by [...] provider. Document Revised: 04/06/2022 Document Reviewed: 04/06/2022 [employer] Patient Education 2022 [employer]. Follow Up Care 08/29/2023 09:19:56 With:Jim BAH MD, URL Address: [facility] [address] , [place] [address]- [phone] When:Within 1 Year(s) Comments:with PSA With:Jim BAH MD, URL Address: [facility] [address], [place] [address]- [phone] When: Unknown [facility] 12-14-2022 Note OPERATIVE NOTE OPERATION DATE: [...] good condition. CC: Johanna Blandon M.D. [facility] Evaluation + Plan note No data available for this section [facility] [place] Evaluation + Plan note Future Appointments Appointment Date:10/13/2023 01:00:00 PM Scheduled Provider:Mary Ellen Dela Cruz Location:[facility] Appointment Type:FM Open [facility] Evaluation + Plan note Future Appointments Appointment Date:12/09/2024 08:45:00 AM Scheduled Provider:Jim BAH MD Location:[facility] Appointment Type:URO Office Visit Diagnostic Tests PendingPSA Total 12/04/23 [facility] Evaluation + Plan note Future Appointments Appointment Date:12/09/2024 08:45:00 AM Scheduled Provider:Jim BAH MD Location:[facility] Appointment Type:URO Office Visit [facility] Evaluation note Diagnosis Onset Date BPH (benign prostatic hyperplasia) acute CAD (coronary artery disease) acute CKD (chronic kidney disease) stage 3, GFR 30-59 ml/min acute Hyperlipidemia acute [id number] acute Pancreatic cyst acute Secondary hyperparathyroidism acute Thrombocytopenia acute [facility] Work Phone: Evaluation note* Diagnosis Onset Date Resolution Status BPH (benign prostatic hyperplasia) acute CAD (coronary artery disease) acute CKD (chronic kidney disease) stage 3, GFR 30-59 ml/min acute Hyperlipidemia acute [id number] acute Pancreatic cyst acute Secondary hyperparathyroidism acute Thrombocytopenia acute BPH (benign prostatic hyperplasia) acute CAD (coronary artery disease) acute CKD (chronic kidney disease) stage 3, GFR 30-59 ml/min acute Hyperlipidemia acute [id number] acute Pancreatic cyst acute Secondary hyperparathyroidism acute Thrombocytopenia acute [facility] Work Phone: Hospital Discharge instructions No data available for this section General Surgery [place] Progress note No data available for this section General Surgery [place] Reason for referral (narrative) , EUS Referred by: Letty Ryan MD [facility] Summary Purpose Family History [...] disease) stage 3, GFR 30-59 ml/min Hyperlipidemia [id number] Pancreatic cyst Secondary hyperparathyroidism Thrombocytopenia Chief Complaint Stage 3 kidney disea se RENAL 2 months Reason for Visit BPH (benign prostati c hyperplasia) CAD (coronary artery disease) CKD (chronic kidney disease) stage 3, GFR 30-59 ml/min Hyperlipidemia [id number] Pancreatic cyst Secondary hyperparathyroidism Thrombocytopenia BPH (benign prostatic hyperplasia) CAD (coronary artery disease) CKD (chronic kidney disease) stage 3, GFR 30-59 ml/min Hyperlipidemia [id number] Pancreatic cyst Secondary hyperparathyroidism Thrombocytopenia Additional Source Comments (unrecognized sect ion and content) No Status Records FoundNo Status Records FoundNo Status Records FoundNo Status Records FoundNo Status Records FoundNo Status Records Found INFORMATION SOURCE (unrecogn ized section and content) DATE CREATED AUTHOR 09/11/2020 [facility] DATE CREATED AUTHOR AUTHOR'S ORGANIZ ATION 11/20/2021 [facility] DATE CREATED AUTHOR AUTHOR'S ORGANIZ ATION 12/21/2022 [facility] DATE CREATED AUTHOR AUTHOR'S ORGANIZ ATION 05/05/2024 [facility] DATE CREATED AUTHOR AUTHOR'S ORGANIZ ATION 10/13/2024 [facility] DATE CREATED AUTHOR AUTHOR'S ORGANIZ ATION 11/15/2024 [facility] Patient Care team informatio n (unrecognized section [...] BE BASED ON THE PRIMARY CLINICAL RECORDS. [employer] provides no warranty or guarantee of the accuracy or completeness of information in this document.
[2024-11-15 12:09] LABS: Hemoglobin 14.6 g/dL (14.0-18.0); Mean Corpuscular HGB Conc 33.2 g/dL (29.9-35.2); Mean Corpuscular Hemoglobin 30.1 pg (25.9-34.0); Mean Corpuscular Volume 90.7 fL (80.0-94.0); Mean Platelet Volume 12.2 fL (9.5-13.5); Platelet Count 98 10^3/uL (150-450); Red Blood Count 4.85 10^6/uL (4.70-6.10); Red Cell Distribution Width 13.2 % (11.0-15.0); White Blood Count 5.3 10^3/uL (4.0-11.0)
[2024-11-15 12:38] LABS: Albumin Level 3.6 g/dL (3.4-5.0); Anion Gap 11.2; Calcium 8.8 mg/dL (8.5-10.1); Carbon Dioxide 28.5 mmol/L (21.0-32.0); Chloride 106 mmol/L (98-107); Estimated GFR (African America >60 (>=60 mL/min/1.73m^2); Estimated GFR (Non-African Ame 51 (>=60 mL/min/1.73m^2); Glucose 89 mg/dL (74-106); Magnesium 1.9 mg/dL (1.8-2.4); Phosphorus 3.5 mg/dL (2.6-4.7); Potassium 3.7 mmol/L (3.5-5.1); Sodium 142 mmol/L (136-145); Uric Acid 6.1 mg/dL (3.5-7.2)
[2024-11-15 13:34] LABS: Creatinine Urine Random 130.37 mg/dL (20.00-300.00); Protein Creatinine Ratio Urine 0.12
[2024-11-15 13:53] LABS: Bilirubin Urine NEGATIVE (NEGATIVE); Blood Urine NEGATIVE (NEGATIVE); Clarity Urine CLEAR (CLEAR); Glucose Urine UA NEGATIVE (NEGATIVE); Ketones Urine NEGATIVE (NEGATIVE); Leukocyte Esterase Urine NEGATIVE (NEGATIVE); Nitrite Urine NEGATIVE (NEGATIVE); Protein Urine NEGATIVE (NEG/TRACE); Specific Gravity Urine 1.015 (1.005-1.025); Urobilinogen Urine 0.2 EU/dL (0.2-1.0); pH Urine 6.5 (5.0-9.0)
[2024-11-15 13:58] LABS: Bacteria Urine TRACE #/HPF (NONE SEEN); Color Urine LT YELLOW (YELLOW); RBC Urine 0-2 #/HPF (0-2); WBC Urine 0-2 #/HPF (NONE SEEN)
[2024-11-15 13:59] LABS: Cast Seen? NONE SEEN #/LPF (NONE SEEN); Crystals Seen? None Seen #/HPF (None Seen); Mucus Urine SMALL (NONE SEEN); Squamous Epithelial Cell Urine RARE #/LPF (NONE/RARE); Transitional Epi Cells Urine RARE #/LPF (NONE SEEN); Urine Culture Indicated NO
[2024-11-17 10:09] LABS: PTH, Intact 48 pg/mL (15-65)
== END 2024-11-15 11:36 | disposition home or self-care (01) ==
LOC: LAB 11:38
PROVIDERS: PCP Nurse Practitioner; Visit Provider Internal Medicine
DX: N25.81 Secondary hyperparathyroidism of renal origin (principal); K86.2 Cyst of pancreas; E78.5 Hyperlipidemia, unspecified; N40.0 Benign prostatic hyperplasia without lower urinary tract symptoms; I25.10 Atherosclerotic heart disease of native coronary artery without angina pectoris; D69.6 Thrombocytopenia, unspecified; E78.1 Pure hyperglyceridemia
CPT/HCPCS: 36415; 80061; 80069; 81001; 82306; 82570; 83735; 83970; 84156; 84550; 85027

== ENCOUNTER 2024-12-24 07:40 | Outpatient (RCR) | payer MEDICARE, SELFPAY ==
[2024-12-10 13:55] LABS: Hematocrit 43.7 % (42.0-54.0); Hemoglobin 14.4 g/dL (14.0-18.0); Mean Corpuscular Hemoglobin 30.4 pg (25.9-34.0); Mean Corpuscular Volume 92.4 fL (80.0-94.0); Mean Platelet Volume 12.2 fL (9.5-13.5); Red Blood Count 4.73 10^6/uL (4.70-6.10); Red Cell Distribution Width 13.5 % (11.0-15.0); White Blood Count 5.8 10^3/uL (4.0-11.0)
[2024-12-10 14:07] LABS: Erythrocyte Sedimentation Rate 14 mm/hr (<=20)
[2024-12-10 14:40] LABS: C Reactive Protein <0.50 mg/dL (<=0.50); Lactate Dehydrogenase 159 U/L (85-227); Lymphocytes Absolute Manual 1.21 10^3/uL (1.20-3.80); Segmented Neut Absolute Manual 3.13 10^3/uL (1.4-6.5)
[2024-12-10 14:41] LABS: Atypical Lymphocytes Abs Man 0.58; Eosinophils Absolute Manual 0.05 10^3/uL (0.00-0.70); Monocytes Absolute Manual 0.81 10^3/uL (0.30-0.80)
[2024-12-10 14:44] LABS: Platelet Morphology Comment NO PLT CLUMPS SEEN
[2024-12-10 14:45] LABS: Platelet Count 81 10^3/uL (150-450)
[2024-12-11 02:09] LABS: Vitamin B12 515 pg/mL (232-1245)
[2024-12-11 13:11] LABS: ANA Direct Positive (Negative); Anti-DNA (DS) Ab Qn 18 IU/mL (0-9); RNP Antibodies <0.2 AI (0.0-0.9); Sjogren's Anti-SS-A <0.2 AI (0.0-0.9); Sjogren's Anti-SS-B <0.2 AI (0.0-0.9)
[2024-12-11 19:08] LABS: Lupus Reflex Interpretation Comment: (.); PTT-LA 40.2 sec (0.0-43.5); dRVVT 59.9 sec (0.0-47.0); dRVVT Confirm 1.4 ratio (0.8-1.2)
[2024-12-12 18:08] LABS: Albumin 3.5 g/dL (2.9-4.4); Alpha-1-Globulin 0.2 g/dL (0.0-0.4); Alpha-2-Globulin 0.7 g/dL (0.4-1.0); Gamma Globulin 1.5 g/dL (0.4-1.8); Immunoglobulin A, Qn, Serum 308 mg/dL (61-437); Immunoglobulin G, Qn, Serum 1356 mg/dL (603-1613); Immunoglobulin M, Qn, Serum 280 mg/dL (20-172)
== END 2024-12-25 07:58 | disposition home or self-care (01) ==
LOC: HEMC 07:40
PROVIDERS: PCP Nurse Practitioner; Visit Provider Internal Medicine Hematology & Oncology
DX: D64.9 Anemia, unspecified (principal); D69.6 Thrombocytopenia, unspecified; D68.62 Lupus anticoagulant syndrome; I25.10 Atherosclerotic heart disease of native coronary artery without angina pectoris; Z95.5 Presence of coronary angioplasty implant and graft; J43.9 Emphysema, unspecified; Z79.82 Long term (current) use of aspirin; G47.30 Sleep apnea, unspecified
CPT/HCPCS: 36415; 82607; 82784; 83615; 84155; 84165; 85007; 85027; 85613; 85652; 86038; 86140; 86225; 86235; 86334; G0463

== ENCOUNTER 2025-01-01 09:50 | Outpatient (OUT) | payer MEDICARE, SELFPAY ==
--- NOTE | 2025-01-01 09:54 | US_ITS ---
The [address] [address] Patient Name: MAXIMINO CLARKE MRN: [id number] date: 1955 Sex: M Assigned Patient Location: Current Patient Location: US Accession/Order Number: [id number] Exam Date: 01/01/2025 10:53 Report Date: 01/01/2025 11:19 At the request of: SHERRI GUEVARA MD Procedure: US abdomen limited LIMITED ABDOMINAL ULTRASOUND CLINICAL HISTORY: Elevated liver functions. Lupus, Thrombocytopenia COMPARISON: CT 01/24/2024 The gallbladder is physiologically distended with multiple small echogenic shadowing gallstones. No wall thickening or pericholecystic fluid. No intra- or extrahepatic biliary dilatation is evident. The common duct measures re-4 mm. The liver is normal in echogenicity. No intrahepatic masses are seen. There is appropriate hepatopetal flow within the main portal vein. A cyst is noted at the neck of the pancreas measuring 19 x 12 x 11 mm. This was also seen previously.. Cursory evaluation of the right kidney reveals no hydronephrosis or fluid within Taylor's pouch. A small cyst is visualized at the inferior pole right kidney measuring 13 x 14 x 10 mm. US/US right upper quadrant IMPRESSION: CHOLELITHIASIS. PANCREATIC AND RIGHT RENAL CYST, ALSO SEEN PREVIOUSLY. LIMITED ULTRASOUND - left upper quadrant CLINICAL DATA: left upper quadrant pain intermittently for the past year. COMPARISON: CT 01/24/2024 The spleen is normal in size measuring 10.9 x 9.7 x 5.3 cm. Echotexture slightly heterogeneous. There are no splenic masses. Cursory evaluation of left kidney shows no hydronephrosis or perinephric fluid. The kidney measures 10.6 cm in craniocaudal dimension. IMPRESSION: NO SPLENIC ABNORMALITIES. Impression dictated by: Dinora Brink M.D.01/01/2025 11:19 AM Dictation Location: [place] [address] Electronically authenticated by: [id number] Y Date: 01/01/2025 11:19
--- OUTSIDE RECORDS SUMMARY | 2025-01-01 09:54 | XMS_ITS | CCD ---
Author Organization [facility] CliniSyms Care Team Providers Care Tape Transferrer Name Role Phone ASHA BLANDON Primary Care Physician [phone] BLANDON ., DR ASHA Reyes Primary Care [...] Primary Care Unavailable BLANDON ., DR ASHA Reyes Admitting Unavailable BLANDON ., DR ASHA Reyes Attending Unavailable BLANDON ., DR ASHA Reyes Consulting Unavailable AMIRA ., DR ASHA Reyes Primary Care Unavailable ASHA BLANDON Primary Care Physician [phone] Mary Ellen Hebert Primary Care Physician MEME ESCALONASEKALI Ricks Admitting Unavailable ALASTAL, YASEEN S Attending Unavailable ALASTAL YASEEN S Attending Unavailable ALASTAL, YASEEN S Referring Unavailable SHERLY BIGGS Attending Unavailable Unavailable Primary Care Provider UnavailMary Ellen Weber Referring Unavailable Letty Ryan Attending Unavaila ble Mary Ellen Hebert Attending Unavailable Mary Ellen Hebert Attending Unavailable EmileeMary Ellen gibson Attending Unavailable JONNIE ESTRELLA Attending Unavailable SAMEERJONNIE GREEN Attending Unavailable SAMEERJONNIE Attending Unavailable SAMEER JONNIE E Admitting Unavailable SAMEER JONNIE E Attending Unavailable SAMEERJONNIE Attending Unavailable SAMEERJONNIE GREEN Admitting Unavailable LEIGHANN VASQUEZAMADru Attending Unavailable KAT VASQUEZ Attending Unavailable Allergies Allergy Classification Reported Allergen(s) Allergy Type Date of Onset Reaction(s) Facility (2 sources) No Known Medication Allergies; 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: [No Known Medication Allergies] Propensity to adverse reactions (disorder) [facility] Repository Medications Current Medications Medication Drug Class(es) Dates Sig (Normalized) Sig (Original) albuterol 0.83 mg/ml inhalation solution (5 sources) beta2-Adrenergic Agonist Start: 07-14-2023 take 2.5 mg by inhalation every six hours albuterol 0.083% Inh Anne 3 mL 2.5 mg, 3 mL, NEB, q6hr, Refill(s) 0 Start Date: 07/14/23 Status: Ordered 24 hr alfuzosin hydrochloride 10 mg extended release oral tablet (8 sources) alpha-Adrenergic Gurpreet Start: 12-03-2024 take 1 tablet by mouth once daily alfuzosin 10 mg ER Tab 10 mg = 1 tab(s), Oral, Daily, # 90 tab(s), Refills(s) 3, Pharmacy: [facility] #[id number], 174, cm, 12/03/24 11:22:00 EST, Height/Length Dosing, 94, kg, 12/03/24 11:22:00 EST, Weight Dosing Start Date: 12/03/24 Status: Ordered Start: 04-25-2024 take 1 tablet by oma th once daily Alfuzosin 10 mg tablet extended release 24 hr Active 10 MG PO Daily April 24, 2024 11:00pm Start: 03-01-2024 End: 04-24-2024 take 1 tablet by mouth every twenty-four hours in the morning alfuzosin (UROXATRAL) 10 mg 24 hr tablet Take 1 tablet (10 mg total) by mouth in the morning. 03/01/2024 04/24/2024 Discontinued (Therapy completed) Start: 12-04-2023 take 1 tablet by oma th once daily alfuzosin 10 mg ER Tab 10 mg = 1 tab(s), Oral, Daily, # 30 tab(s), Refills(s) 11, Pharmacy: [facility] #[id number], 174, cm, 12/04/23 9:07:00 EST, Height/Length Dosing, 90, kg, 12/04/23 9:07:00 EST, Weight Dosing Start Date: 12/04/23 Status: Ordered aspirin 81 mg delayed release oral tablet (11 sources) Platelet Aggregation Inhibitor, Nonsteroidal Anti-inflammatory Drug Start: 04-25-2024 take 1 tablet by mouth once daily Aspirin 81 mg tablet,delayed release (DR/EC) Active 81 MG PO Daily April 24, 2024 11:00pm Start: 04-25-2019 aspirin 81 mg, Chewed, Daily Start Date: 04/25/19 Status: Ordered aspirin 81 mg ch ewable tablet Chew 1 tablet (81 mg total) and swallow in the morning. Active 60 actuat budesonide 0.09 mg/actuat dry powder inhaler (5 sources) Corticosteroid Start: 07-14-2023 Pulmicort Flex haler 90 mcg/inh inhalation powder 1 inh, Inhalation, BID, 1 EA, Refill(s) 11, [id number], 172.7, cm, 07/14/23 13:11:00 EDT, Height/Length Dosing, 92, kg, 07/14/23 13:11:00 EDT, Weight Dosing Start Date: 07/14/23 Status: Ordered carvedilol 6.25 mg oral tablet (15 sources) alpha-Adrenergic Gurpreet, beta-Adrenergic Gurpreet Start: 12-03-2024 carvedilol 6.25 mg Tab 12.5 mg = 2 tab(s), Refills(s) 0 Start Date: 12/03/24 Status: Ordered Start: 06-13-2024 End: 11-28-2024 Carvedilol 12.5 mg tablet Discontinued 19 MG PO Twice daily June 13, 2024 8:55am November 28, 2024 9:51am Start: 06-13-2024 take 19 mg by mouth twice pete y Carvedilol Active 19 MG PO Twice daily June 13, 2024 9:55am Start: 06-13-2024 take 9.75 mg by mout h twice daily Carvedilol 6.25 mg tablet Active 9.75 MG PO Twice daily June 12, 2024 11:00pm Start: 06-13-2024 take 9.75 mg by mout h twice daily Carvedilol Active 9.75 MG PO Twice daily June 13, 2024 12:00am Start: 02-08-2024 End: 06-13-2024 take 1 tablet by mouth twice daily carvedilol 12.5 mg Tab 12.5 mg = 1 tab(s), Oral, BID, # 180 tab(s), Refills(s) 3, Pharmacy: [facility] #[id number], 174, cm, 01/02/24 10:21:00 EDT, Height/Length Dosing, 93.4, kg, 01/02/24 10:21:00 EDT, Weight Dosing Start Date: 02/08/24 Status: Ordered Start: 10-13-2023 take 1 tablet by oma th twice daily carvedilol 6.25 mg Tab 6.25 mg = 1 tab(s), Oral, BID, Refills(s) 0 Start Date: 10/13/23 Status: Ordered cholecalciferol 0.025 mg oral capsule (3 sources) Vitamin D Start: 04-25-2024 take 1 capsule by mouth once daily Cholecalciferol (Vitamin D3) 25 mcg (1,000 unit) capsule Active 25 MCG PO Daily April 24, 2024 11:00pm CPap supplies (3 sources) Start: 02-08-2024 CPap supplies CPap supplies, See Instructions, 2 EA, 1, Use for Sleep apnea, Supply Start Date: 02/08/24 Status: Ordered D3 1000 intl units (25 mcg) oral tablet (5 sources) Start: 07-14-2023 take 1 tablet by mouth once daily D3 1000 intl units (25 mcg) oral tablet 25 mcg = 1 tab(s), Oral, Daily, Refills(s) 0 Start Date: 07/14/23 Status: Ordered esomeprazole 40 mg delayed release oral capsule (7 sources) Proton Pump Inhibitor Start: 04-01-2024 take 1 capsule by mouth once daily esomeprazole 40 mg Cap-EC See Instructions, TAKE 1 CAPSULE BY MOUTH DAILY, # 90 cap(s), Refills(s) 0, Pharmacy: [facility] #[id number], 174, cm, 10/07/24 15:26:00 EST, Height/Length Dosing, 94.7, kg, 10/07/24 15:26:00 EST, Weight Dosing Start Date: 10/10/24 Status: Ordered hydroCHLOROthiazide 25 mg oral tablet (6 sources) Thiazide Diuretic Start: 12-03-2024 hydrochlorothiazide 25 mg Tab 25 mg = 1 tab(s), Refills(s) 0 Start Date: 12/03/24 Status: Ordered Start: 04-14-2024 take 1 tablet by oma th once daily in the morning Hydrochlorothiazide 25 mg tablet Active 25 MG PO Every morning April 24, 2024 11:00pm hydroCHLOROthiazide 12.5 mg / losartan potassium 100 mg oral tablet (3 sources) Thiazide Diuretic, Angiotensin 2 Receptor Gurpreet Start: 07-12-2023 End: 08-11-2023 hydrochlorothiazide-losartan 12.5 mg-100 mg oral tablet 1 tab(s), Oral, Daily for 30 day(s), 30 tab(s), Refill(s) 0, [facility] #[id number], 172.7, cm, 11/22/22 15:44:00 EST, Height/Length Dosing, 92.5, kg, 11/22/22 15:44:00 EST, Weight Dosing Start Date: 07/12/23 Stop Date: 08/11/23 Status: Ordered Start: 11-03-2022 take 1 tablet by oma th once daily hydrochlorothiazide-losartan 12.5 mg-100 mg oral tablet 1 tab(s), Oral, Daily, Refill(s) 0 Start Date: 11/03/22 Status: Ordered losartan potassium 25 mg oral tablet (6 sources) Angiotensin 2 Receptor Gurpreet Start: 12-03-2024 losartan 25 mg Tab 2 5 mg = 1 tab(s), Refills(s) 0 Start Date: 12/03/24 Status: Ordered Start: 04-14-2024 take 1 tablet by mouth once da heather Losartan 25 mg tablet Active 25 MG PO Daily April 24, 2024 11:00pm 24 hr metoprolol succinate 25 mg extended [...] Ordered rosuvastatin calcium 20 mg oral tablet (8 sources) HMG-CoA Reductase Inhibitor Start: 10-13-2023 take 1 [...] Problem Date Documented Date Episodic/Chronic Abdominal pain (4 sources) Abdominal pain; 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: [Unspecified abdominal pain] Onset: 4 Episodic Biliary tract disease (10 sources) Gallstone; 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: [Biliary calculus] 04-25-2019 Episodic Chronic kidney disease (7 sources) Chronic kidney disease stage 3; 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: [Stage 3 chronic kidney disease] 04-25-2024 Chronic Chronic obstructive pulmonary disease and bronchiectasis (15 sources) Chronic obstructive lung disease; 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: [Pulmonary emphysema] Onset: 3 11-03-2022 Chronic Coagulation and hemorrhagic disorders (7 sources) Thrombocytopenic disorder; 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: [Thrombocytopenia, unspecified] 04-25-2024 Chronic Coronary atherosclerosis and other heart disease (15 sources) Coronary arteriosclerosis; 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: [Atherosclerotic heart disease of huslia coronary artery without angina pectoris] Onset: 3 04-25-2019 Chronic Coronary atherosclerosis and other heart disease (1 source) Presence of coronary angioplasty implant and graft; 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: [PRESENCE COR ANGPLSTY IMPLANT AND GRAFT] Onset: 3 Episodic Disorders of lipid metabolism (17 sources) Hyperlipidemia; 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: [Hyperlipidemia, unspecified] Onset: 3 04-25-2019 Chronic Diverticulosis and diverticulitis (1 source) Diverticulosis of large intestine without perforation or abscess without bleeding; 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: [DVRTCLOS LG INT NO PERF/ABSC W/O BL] Onset: 3 Chronic Essential hypertension (10 sources) Hypertensive disorder; 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: [Essential (primary) hypertension] Onset: 3 04-25-2019 Chronic Gastrointestinal hemorrhage (20 sources) Melena; 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: [Melena] Onset: 3 Episodic Genitourinary symptoms and ill-defined conditions (20 sources) Ronny hematuria; 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: [Nocturia] Onset: 3 05-13-2019 Episodic Headache; including migraine (4 sources) Headache 08-30-2023 Episodic Hyperplasia of prostate (17 sources) Benign prostatic hypertrophy with outflow obstruction; 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: [Benign prostatic hyperplasia with lower urinary tract symptoms] Onset: 3 05-04-2020 Chronic Hypertension with complications and secondary hypertension (9 sources) Chronic kidney disease due to hypertension; 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: [Hypertensive chronic kidney disease with stage 1 through stage 4 chronic kidney disease, or unspecified chronic kidney disease] Onset: 5 04-25-2024 Chronic Malaise and fatigue (7 sources) Chronic fatigue syndrome 11-03-2022 Chronic Malaise and fatigue (6 sources) Other fatigue; 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: [Fatigue] Onset: 3 07-14-2023 Episodic Noninfectious gastroenteritis (1 source) Noninfective gastroenteritis and colitis, unspecified; 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: [NONINFECTIVE GE AND COLITIS UNS] Onset: 3 Episodic Other aftercare (1 source) shelter (current) use of aspirin; 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: [SOFTWARE QA MANAGER CURRENT USE OF ASPIRIN] Onset: 3 Episodic Other diseases of kidney and ureters (3 sources) Secondary hyperparathyroidism; 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: [Secondary hyperparathyroidism of renal origin] 04-25-2024 Chronic Other diseases of kidney and ureters (4 sources) Secondary hyperparathyroidism of renal origin; 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: [Secondary hyperparathyroidism (of renal origin)] 04-25-2024 Chronic Other lower respiratory disease (7 sources) Fibrosis of lung 11-03-2022 Chronic Other lower respiratory disease (4 sources) Cough 08-30-2023 Episodic Other male genital disorders (3 sources) Male erectile dysfunction, unspecified; 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: [Erectile dysfunction] Onset: 5 Chronic Other nutritional; endocrine; and metabolic disorders (7 sources) Body mass index 30+ - obesity 11-22-2022 Chronic Other screening for suspected conditions (not mental disorders or infectious disease) (16 sources) Raised prostate specific antigen; 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: [Decreased testosterone level ] Onset: 2 05-04-2020 Episodic Other upper respiratory infections (2 sources) Sinusitis 10-07-2024 Chronic Other upper respiratory infections (4 sources) Sore throat symptom 08-30-2023 Episodic Otitis media and related conditions (7 sources) Otitis media of right ear; 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: [Finding of fluid behind tympanic membrane] 08-30-2023 Episodic Pancreatic disorders (not diabetes) (11 sources) Cyst of pancreas; 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: [Cyst of pancreas] Onset: 4 Episodic Pneumonia (except that caused by tuberculosis or sexually transmitted disease) (8 sources) Legionella pneumonia; 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: [Legionnaires' disease] Onset: 3 04-25-2019 Episodic Residual codes; unclassified (7 sources) Sleep apnea 04-25-2019 Chronic Residual codes; unclassified (1 source) Sleep apnea, unspecified; 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: [SLEEP APNEA UNSPECIFIED] Onset: 3 Chronic Thyroid disorders (4 sources) Hypothyroidism, unspecified; 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: [HYPOTHYROIDISM UNSPECIFIED] Onset: 3 Chronic Unclassified (10 sources) Patient encounter status 07-14-2023 Past or Other Problems Problem Classification Problem Date Documented Da te Episodic/Chronic Unclassified (7 sources) Drug therapy finding 11-03-2022 Results Test Name Value Interpretation Reference Range Facility CHEMISTRYOrdered By: SYSTEM SYSTEM on 12-03-2024 Prostate specific Ag [Mass/Vol] 1.1 ng/mL Normal 0.1 - 3.5 ng/mL [facility] Comment on above: Interpretive Data: T he concentration of PSA determined by different manufacturers can vary due to differences in assay methods and reagent specificity. Values obtained from different assay methods cannot be used interchangeably. The methodology used for this result was chemiluminescence using [employer]'s Access [employer] PSA reagent. PSA Totalon 12-03-2024 Prostate specific Ag [Mass/Vol] 1.1 ng/mL Normal 0.1-3.5 [facility] Comment on above: Result Comment: The concentration of PSA determined by different manufacturers can vary due to differences in assay methods and reagent specificity. Values obtained from different assay methods cannot be used interchangeably. The methodology used for this result was chemiluminescence using [employer]'s Access [employer] PSA reagent. Performed By: #### 1 [id number] #### [facility] [address] [place] [address] Urology Office/Clinic Noteon 12-03-2024 Urology Office/Clinic Note Urology Office/Clinic Note Chief Complaint 1yr f/u w/ PSA HPI Staff 1 year f/u with PSA. No current PSA on Clinisync. Last PSA noted was 07/14/23 and was 1.4. Had been higher previous to that. Denies all urinary symptoms. Dx: BPH with outflow obstruction. *[id number] ER qd - needs refills Review of Systems PHQ Score Initial Depression Screen Score: 0 SCORE no fever, chills, malaise, myalgia. no rash/lesions. no chest pain, palpitations, or SOB. no abdominal pain, nausea, vomiting. Physical Exam Vitals & Measurements HR: 77(Peripheral) RR: 18 BP: 141/101 HT: 69 in HT: 174 cm WT: 94.0 kg WT: 207.234 lb BMI: 31.05 General: nontoxic, NAD Mouth: moist mucosa Lungs: normal respiratory effort Cardio: regular rate, good distal perfusion Abdomen: nondistended Neurologic: Grossly normal Skin: No rashes or suspicious lesions Assessment/Plan Former DLS pt 1. Benign prostatic hypertrophy with outflow obstruction (N40.1: Benign prostatic hyperplasia with lower urinary tract symptoms) Pt is taking alfuzosinand is mostly satisfiedwith overall symptom control. Pt is experiencing noside effects. IPSS 13 QOL 2 We discussed current dose and optional changes: adding an additional agent such as finasteride/dutasterid e I discussed with the patient the different surgical treatment options for bladder outlet obstruction including TURP, Rezum, and Urolift. The patient prefers to continue the BPH medications at this time. Pt prefers to continue current regimen with no changes at this time. Risks/benefits/side effects discussed. Refills provided. Ordered: Lab Specimen Collect [id number] PSA Total Urnls Dip Stick Auto w/o Microscopy POC [id number] 2. Elevated PSA (R97.20: Elevated prostate specific antigen [PSA]) PSA max 12/2017 - 5.97 Negative prostate biopsy 2019 PSA 07/14/23 - 1.4 Drawn IO today. Advised will only call if abnl. Pt aware no news is good news in this regard. 3. ED (erectile dysfunction) (N52.9: Male erectile dysfunction, unspecified) MANDY 18. Pt does not wish to discuss tx options at this time. Orders: alfuzosin, 10 mg = 1 tab(s), Oral, Daily, # 90 tab(s), Refills(s) 3, Pharmacy: [facility] #[id number], 174, cm, 12/03/24 11:22:00 EST, Height/Length Dosing, 94, kg, 12/03/24 11:22:00 EST, Weight Dosing Follow-up With When Contact Information SAMEER DUNHAM, JONNIE Reyes, URMaría In 1 year [address] [place] [address] Additional Instructions: Patient Education Benign Prostatic Hyperplasia Problem List/Past Medical History Ongoing Abdominal pain Benign prostatic hypertrophy with outflow obstruction BMI 31.0-31.9,adult Cholelithiases Chronic fatigue syndrome Chronic obstructive pulmonary disease Coronary artery disease Cough ED (erectile dysfunction) Elevated PSA Emphysema of lung Fatigue Fluid [...] Tab, 10 mg= 1 tab(s), Oral, Daily, 3 refills aspirin, 81 mg, Chewed, Daily carvedilol 12.5 mg Tab, 12.5 mg= 1 tab(s), Oral, BID, 3 refills carvedilol 6.25 mg Tab, 12.5 mg= 2 tab(s) CPap supplies, See Instructions, 1 refills D3 1000 intl units (25 mcg) oral tablet, 25 mcg= 1 tab(s), Oral, Daily esomeprazole 40 mg Cap-EC, See Instructions hydrochlorothiazide 25 mg Tab, 25 mg= 1 tab(s) losartan 25 mg Tab, 25 mg= 1 tab(s) Pulmicort Flexhaler 90 mcg/inh inhalation powder, 1 inh, Inhalation, BID, 11 refills rosuvastatin 20 mg Tab, 20 mg= 1 tab(s), Oral, Daily Allergies No Known Medication Allergies Social History Alcohol - Denies Alcohol Use, 04/25/2019 Never., 10/07/2024 Substance Abuse - Denies Substance Abuse, 11/22/2022 Never., 10/07/2024 Tobacco Never (less than 100 in lifetime) Tobacco Use:. Never Smokeless Tobacco Use:., 12/03/2024 Never (less than 100 in lifetime) Tobacco Use:., 10/07/2024 Family History Anxiety: Mother. Heart disease: Sister. Hypertension: Mother. Pancreatic cancer: Mother. Immunizations Vaccine Date Status influenza virus vaccine, inactivated 07/08/2024 Recorded pneumococcal 20-valent conjugate vaccine 07/05/2023 Recorded influenza virus vaccine, inactivate (more content not included)... Normal [facility] Comment on above: Result Comment: Elec tronically Signed By: JONNIE ESTRELLA PA-C\.br\Date and Time Signed: 12/03/24 12:20 EST Erythrocyte distribution wid th Auto (RBC) [Ratio]on 11-15-2024 Erythrocyte distribution width (RBC) [Ratio] Erythrocyte distribution width [Ratio] by Automated count 11.0-15.0 [facility] Estimated glomerular filtrat ion rate (GFR) non- Americanon 11-15-2024 GFR/1.73 sq M.predicted among non-blacks MDRD (S/P/Bld) [Vol rate/Area] Estimated glomerular filtration rate (GFR) non- Low >=60 mL/min/1.73m 2 [facility] Hematocrit Auto (Bld) [Volum e fraction]on 11-15-2024 Hematocrit (Bld) [Volume fraction] Hematocrit [Volume Fraction] of Blood by Automated count 42.0-54.0 [facility] Hemoglobin [Mass/volume] in Bloodon 11-15-2024 Hemoglobin (Bld) [Mass/Vol] Hemoglobin [Mass/volume] in Blood 14.0-18.0 [facility] Laboratory - Chemistry and C hemistry - challengeon 11-15-2024 Albumin [Mass/Vol] 3.6 g/dL 3.4-5.0 [facility] Calcium [Mass/Vol] 8.8 mg/dL 8.5-10.1 [facility] Chloride [Moles/Vol] 106 mmol/L 98-107 [place] CO2 [Moles/Vol] 28.5 mmol/L 21.0-32.0 [facility] Creatinine [Mass/Vol] 1.40 mg/dL High 0.70-1.30 [facility] GFR/1.73 sq M.predicted MDRD (S/P/Bld) [Vol rate/Area] mL/min/{1.73_m2} >=60 mL/min/1.73m 2 [facility] Glucose [Mass/Vol] 89 mg/dL 74-106 [facility] Magnesium [Mass/Vol] 1.9 mg/dL 1.8-2.4 [place] Potassium [Moles/Vol] 3.7 mmol/L 3.5-5.1 [facility] Sodium [Moles/Vol] 142 mmol/L 136-145 [facility] Urate [Mass/Vol] 6.1 mg/dL 3.5-7.2 [facility] Urea nitrogen [Mass/Vol] 14.0 mg/dL 7.0-18.0 [facility] Urea nitrogen/Creatinine [Mass ratio] 10.0 mg/mg [facility] - Urinalysison Protein (U) [Mass/Vol] 16.0 mg/dL High <=11.9 [facility] Leukocytes [#/volume] correc nori for nucleated erythrocytes in Blood by Automated counon 11-15-2024 WBC corrected for nucl RBC Auto (Bld) [#/Vol] Leukocytes [#/volume] corrected for nucleated erythrocytes in Blood by Automated coun 4.0-11.0 [facility] MCH Auto (RBC) [Entitic mass ]on 11-15-2024 MCH (RBC) [Entitic mass] MCH [Entitic mass] by Automated count 25.9-34.0 [facility] MCHC Auto (RBC) [Mass/Vol]on 11-15-2024 MCHC (RBC) [Mass/Vol] MCHC [Mass/volume] by Automated count 29.9-35.2 [facility] MCV Auto (RBC) [Entitic vol] on 11-15-2024 MCV (RBC) [Entitic vol] MCV [Entitic volume] by Automated count 80.0-94.0 [facility] No Panel Informationon 11-15 25-Hydroxy Vitamin D Total 46.3 ng/mL [facility] Comment on above: <20 ng/mL Vit D defi cient20-<30 ng/mL Vit D ppmhilkowsla74-533 ng/mL Vit D sufficient>100 ng/mL Potential Toxicity Parathyroid Hormone (Intact) 48 pg/mL 15-65 [facility] Comment on above: Performed at: [facility] [address] [id number] Director: Aryan Craft PhD, Phone: [phone] Phosphorus Level 3.5 mg/dL 2.6-4.7 [facility] Urine Random Creatinine 130.37 mg/dL 20.00-300.00 [facility] Platelet mean volume Auto (B ld) [Entitic vol]on 11-15-2024 Platelet mean volume (Bld) [Entitic vol] Platelet mean volume [Entitic volume] in Blood by Automated count 9.5-13.5 [facility] Platelets Auto (Bld) [#/Vol] on 11-15-2024 Platelets (Bld) [#/Vol] Platelets [#/volume] in Blood by Automated count Low 150-450 [facility] RBC Auto (Bld) [#/Vol]on RBC (Bld) [#/Vol] Erythrocytes [#/volume] in Blood by Automated count 4.70-6.10 [facility] Serum or plasma anion gap de terminationon 11-15-2024 Anion gap [Moles/Vol] Serum or plasma an ion gap determination [facility] Urine protein/creatinine rat ioon 11-15-2024 Protein/Creatinine (U) [Ratio] Urine protein/creatinine ratio [facility] Office Visiton 11-13-2024 Follow-up visit [id number] Joseph Clarkephoebe supa Reyes 1955 M Date Provider Department Center 11/13/2024 [id number] VASQUEZ Jazmin Bridger Family History Problem Relation Age of Onset Hypertension Mother Cancer Mother Family Status - Relation Status Age at Mother Level of Service:18553 MS OFFICE/OUTPATIENT ESTABLISHED LOW MDM 20 MIN [facility] Ambulatory Visit Summaryon 0 10-07-2024 Ambulatory Visit [...] DHALIWAL, Jim More Where: [facility] [address] [place] [address] [place] [address]- Medications What How Much When Why Instructions Unchanged albuterol (albuterol 0.083% Inh Anne 3 mL) 3 Milliliter Nebulized inhalation (aerosol) Every 6 hours Unchanged alfuzosin (alfuzosin 10 mg ER Tab) 1 Tablets By Mouth Every day Unchanged amoxicillin-clavulanat e (amoxicillin-clavulana te 875 mg-125 mg Tab) 1 Tablets By Mouth Every 12 hours Duration: 10 Days Pickup at [facility] #[id number] Unchanged aspirin 81 Milligram Chewed Every day [...] Tablets By Mouth Every day Pharmacy Information [id number]: [address], [place] [phone] Medications and Immunizations Administered Given Kenalog-40, 60 [...] you for choosing us for your care. Zaheer Torre [facility] Family Medicine Office/Clini c Noteon 10-07-2024 [...] for 10 day(s), 20 tab(s), Refill(s) 0, [facility] #[id number], 174, cm, 10/07/24 15:26:00 EST, Height/Length Dosing, [...] mRNA [id number] vax 12/14/2020 Recorded Normal [facility] Comment on above: Result Comment: Elec tronically Signed By: Mary Ellen Dela Cruz\.br\Date and Time Signed: 10/07/24 15:38 EST Office Visiton 05-27-2024 Follow-up visit [id number] Padmini Clarke 1955 M Date Provider Department Center 05/27/2024 [facility]8-KAT VASQUEZ [facility] Family History Problem Relation Age of Onset Hypertension Mother Cancer Mother Family Status - Relation Status Age at Mother Level of Service:57182 MS OFFICE/OUTPATIENT ESTABLISHED MOD MDM 30 MIN [facility] Surgical Pathologyon 024 Surgical Pathology Normal [facility] Comment on above: Result Comment: [facility] [address] [place] [address] Surgical Pathology Consultation Patient Name:JOSEPH CLARKEBRUNA Tanner:1955 (Age: 69)Gender:MTaken:04/30/2024eported:4Physician(s):Surinder Escalona MD ( )Copy To: Rec. #:[id number]: #[id number] Final Pathologic Diagnosis Gastric biopsy: Mild chronic gastritis with intestinal metaplasia present. Negative for helicobacter organisms on routine H&E examination Negative for dysplasia or malignancy. Report Electronically Signed Out st05/02/2024Lorena Bowles MD Interpretation performed at [facility], [address] [place], [address], License number: [id number]. Clinical History Pancreatic cyst, abdominal pain. 1. H pylori screen Gross Description Received in formalin, labeled VINCE, gastric biopsy are multiple pink-del angel soft tissue fragments aggregating 1.3 x 0.5 x 0.1 cm. The specimen is filtered and entirely submitted in one cassette. (1, ns, [id number], ) mxw/04/30/2024GR Specimen(s) Received Gastric biopsy Fee Codes(s): 1; 47413 36on 04-15-2024 SARS-CoV-2 (COVID-19) RNA NIEVES+probe Ql (Unsp spec) 04/15/24@1000 Patients called stating that Maximino tested positive for COVID today, per [facility] policy he needs to wait 10 days from his positive test to be scheduled. Patient is rescheduled for 04/30/24 arriving at 0945 for a 1145 procedure with a PAT call on 04/23/24 in the am. [facility] 36on 04-09-2024 36 Scheduled EGD/EUS/Pancreatic Cyst/Abd Pain 04/19/24 @1200, PTH, Dr. Escalona, PAT ph: 04/12/24 @1130, #[id number], Ref Dr. Ryan in [place] 04/03/24. [facility] Telephone[facility] 04-09-2024 Telephone [id number] Vince,Samu supa E 1955 M Date Provider Department Center 04/09/2024 [id number]-EGADEMODE LIRIANO [facility] Family History Problem Relation Age of Onset Hypertension Mother Cancer Mother Family Status - Relation Status Age at Mother [facility] G[facility] Office/Clin ic Noteon 04-01-2024 Gastroenterology Office/Clinic [...] on CT 01/2024- Discussed referral to Dr Nawras to proceed with EGD/EUS with random gastric [...] vax 01/05/2021 R (more content not included)... [facility] Comment on above: Result Comment: Elec tronically Signed By: Letty Ryan MD\.br\Date and Time Signed: 04/01/24 10:29 EDT\.br\Electronically Co-Signed By: Liliana Garcia MA\.br\Date and Time Co-Signed: 04/01/24 10:24 EDT Physician Referralon 024 Physician Referral [id number]. 00TIFF [facility] Physician Referralon 024 Physician Referral [id number] 05 [id number]#1. 00TIFF [facility] RAD - CT Reporton 01-26-2024 RAD - CT Report [id number]#1.0 0TIFF [facility] Physician Orderon 01-03-2024 Physician Order [id number]#1.0 0TIFF [facility] Ambulatory Visit Summaryon 0 01-02-2024 [...] DHALIWAL, Jim More Where: [facility] Family Medicine Office/Clini c Noteon [...] mRNA BNT-162b2 vax 12/14/2020 Recorded Normal [facility] Comment on above: Result Comment: Elec tronically Signed By: Mary Ellen Dela Cruz\.br\Date and Time Signed: 01/02/24 11:42 EDT Physician Orderon 01-02-2024 Physician Order [id number]#1.0 0TIFF Normal [facility] Ambulatory Visit Summaryon 0 12-28-2023 Ambulatory Visit Summary JOSEPH CLARKEBRUNA Reyes :1955 Visit Date:12/28/2023 Ambulatory Visit Instructions Your [...] DHALIWAL, Jim More Where: [facility] [place] 12-28-2023 Consent [id number]#1.0 0TIFF [facility] Family Medicine Office/Clini c Noteon 12-28-2023 [...] day(s), # 14 tab(s), Refills(s) 0, Pharmacy: [facility] #[id number], 174, cm, 12/28/23 8:31:00 EDT, Height/Length Dosing, 93.3, kg, 12/28/23 8:31:00 EDT, Weight Dosing 4. Non-smoker (Z78.9: Other specified health status) continue not smoking Ordered: amoxicillin-clavulanat e, = 1 tab(s), Oral, q12hr, X 7 day(s), # 14 tab(s), Refills(s) 0, Pharmacy: [facility] #[id number], 174, cm, 12/28/23 8:31:00 EDT, Height/Length Dosing, 93.3, kg, 12/28/23 8:31:00 EDT, Weight Dosing 5. Hypertension (I10: Essential (primary) hypertension) BP continues to run high. hr director started him on carvedilol we will increase that dose today. he does not have any follow up appointments scheduled with cardiology and they are leaving on a cruise next week. RTC 4 weeks for BP check. Orders: carvedilol, 12.5 mg = 1 tab(s), Oral, BID, # 60 tab(s), Refills(s) 0, Pharmacy: [facility] #[id number], 174, cm, 12/28/23 8:31:00 EDT, Height/Length Dosing, [...] SARS (more content not included)... Normal [facility] Comment on above: Result Comment: Elec tronically Signed By: Mary Ellen Dela Cruz\.br\Date and Time Signed: 12/28/23 08:48 EDT CHEMISTRYOrdered By: SYSTEM SYSTEM on 07-14-2023 Albumin [...] 51 mL/min/1.73 m2 Low >=59mL/min/1 .73 m2 [facility] Chem S Comment on above: Interpretive Data: [...] used for this result was chemiluminescence using [employer]'s Access [employer] PSA reagent. Protein [Mass/Vol] 7.8 [...] 15.8 g/dL Normal 13.5 - 17.5 gm/dL FT HemeAutoSS MCH (RBC) [Entitic mass] 30.2 pg [...] 10-11-2022 BASO # 0.0 103/ul Normal 0.0-0.1 [facility] Comment on above: Performed By: #### C BC #### [facility] [address] [place] [address] Dr. Anup Paez Basophils/100 WBC (Bld) 0.4 % Normal 0.2-2.0 [facility] Comment on above: Performed By: #### C BC #### [facility] [address] [place] [address] Dr. Anup Paez EO # 0.0 103/ul Normal 0.0-0.7 [facility] Comment on above: Performed By: #### C BC #### [facility] [address] [address] [address] Anup Paez Eosinophils/100 WBC (Bld) 0.1 % Critically low 0.9-7.0 [facility] Comment on above: Performed By: #### C BC #### [facility] [address] [place] [address] Dr. Anup Paez Erythrocyte distribution width (RBC) [Ratio] 13.2 % Normal 11.0-15.0 [facility] Comment on above: Performed By: #### C BC #### [facility] [address] [place] [address] Dr. Anup Paez Hematocrit (Bld) [Volume fraction] 43.2 % Normal 42.0-54.0 [facility] Comment on above: Performed By: #### C BC #### [facility] [address] [place] [address] Dr. Anup Paez Hemoglobin (Bld) [Mass/Vol] 14.7 g/dL Normal 14.0-18.0 [facility] Comment on above: Performed By: #### C BC #### [facility] [address] [place] [address] Dr. Anup Paez IG # 0.03 10e3/ul Normal 0.00-0.03 [facility] Comment on above: Performed By: #### C BC #### [facility] [address] [place] [address] Dr. Anup Paez IG % 0.4 % Normal 0.0-0.5 [facility] Comment on above: Performed By: #### C BC #### [facility] [address] [place] [address] Dr. Anup Paez LYMPH # 1.2 103/ul Normal 1.2-3.8 [facility] Comment on above: Performed By: #### C BC #### [facility] [address] [place] [address] Dr. Anup Paez Lymphocytes/100 WBC (Bld) 14.8 % Critically low 20.5-60.0 [facility] Comment on above: Performed By: #### C BC #### [facility] [address] [place] [address] Dr. Anup Paez MANUAL DIFF REQ NO Normal [facility] Comment on above: Performed By: #### C BC #### [facility] [address] [place] [address] Dr. Anup Paez MCH (RBC) [Entitic mass] 30.3 pg Normal 25.9-34.0 [facility] Comment on above: Performed By: #### C BC #### [facility] [address] [address] [address] Anup Paez MCHC (RBC) [Mass/Vol] 34.0 g/dL Normal 29.9-35.2 [facility] Comment on above: Performed By: #### C BC #### [facility] [address] [address] [address] Anup Paez MCV (RBC) [Entitic vol] 89.1 fL Normal 80.0-94.0 [facility] Comment on above: Performed By: #### C BC #### [facility] [address] [address] [address] Anup Paez MONO # 0.5 103/ul Normal 0.3-0.8 [facility] Comment on above: Performed By: #### C BC #### [facility] [address] [address] [address] Anup Paez Monocytes/100 WBC (Bld) 5.5 % Normal 1.7-12.0 [facility] Comment on above: Performed By: #### C BC #### [facility] [address] [address] [address] Anup Paez NEUT # 6.6 103/ul Critically high 1.4-6.5 [facility] Comment on above: Performed By: #### C BC #### [facility] [address] [address] [address] Anup Paez Neutrophils/100 WBC (Bld) 78.8 % Critically high 43.0-75.0 [facility] Comment on above: Performed By: #### C BC #### [facility] [address] [address] [address] Anup Paez Platelet mean volume (Bld) [Entitic vol] 11.9 fL Normal 9.5-13.5 [facility] Comment on above: Performed By: #### C BC #### [facility] [address] [address] [address] Anup Paez PLT 140 103/ul Critically low 150-450 [facility] Comment on above: Performed By: #### C BC #### [facility] [address] [place] [address] Dr. Anpu Paez RBC 4.85 106/ul Normal 4.70-6.10 [facility] Comment on above: Performed By: #### C BC #### [facility] [address] [place] [address] Dr. Anup Paez WBC 8.3 103/ul Normal 4.0-11.0 [facility] Comment on above: Performed By: #### C BC #### [facility] [address] [place] [address] Dr. Anup Paez FREE T3on 10-11-2022 FREE T3 2.36 pg/mlL Normal 2.18-3.98 [facility] Comment on above: Performed By: #### F T3 #### [facility] [address] [place] [address] Dr. Anup Paez FREE T4on 10-11-2022 Free T4 [Mass/Vol] 0.97 ng/dL Normal 0.76-1.46 [facility] Comment on above: Performed By: #### F T4 #### [facility] [address] [place] [address] Dr. Anup Paez TSHon 10-11-2022 TSH 0.231 uIU/mL Critically low 0.358-3.740 [facility] Comment on above: Performed By: #### T SH #### [facility] [address] [place] [address] Dr. Anup Paez CBC AUTO DIFFon 02-19-2022 BASO # 0.1 103/ul Normal 0.0-0.1 [facility] Comment on above: Performed By: #### C BC #### [facility] [address] [place] [address] Dr. Anup Paez Basophils/100 WBC (Bld) 1.1 % Normal 0.2-2.0 [facility] Comment on above: Performed By: #### C BC #### [facility] [address] [place] [address] Dr. Anup Paez EO # 0.2 103/ul Normal 0.0-0.7 [facility] Comment on above: Performed By: #### C BC #### [facility] [address] [place] [address] Dr. Anup Paez Eosinophils/100 WBC (Bld) 4.4 % Normal 0.9-7.0 [facility] Comment on above: Performed By: #### C BC #### [facility] [address] [place] [address] Dr. Anup Paez Erythrocyte distribution width (RBC) [Ratio] 12.9 % Normal 11.0-15.0 [facility] Comment on above: Performed By: #### C BC #### [facility] [address] [place] [address] Dr. Anup Paez Hematocrit (Bld) [Volume fraction] 44.4 % Normal 42.0-54.0 [facility] Comment on above: Performed By: #### C BC #### [facility] [address] [place] [address] Dr. Anup Paez Hemoglobin (Bld) [Mass/Vol] 14.4 g/dL Normal 14.0-18.0 [facility] Comment on above: Performed By: #### C BC #### [facility] [address] [place] [address] Dr. Anup Paez IG # 0.01 10e3/ul Normal 0.00-0.03 [facility] Comment on above: Performed By: #### C BC #### [facility] [address] [place] [address] Dr. Anup Paez IG % 0.2 % Normal 0.0-0.5 [facility] Comment on above: Performed By: #### C BC #### [facility] [address] [place] [address] Dr. Anup Paez LYMPH # 1.6 103/ul Normal 1.2-3.8 [facility] Comment on above: Performed By: #### C BC #### [facility] [address] [place] [address] Dr. Anup Paez Lymphocytes/100 WBC (Bld) 35.8 % Normal 20.5-60.0 [facility] Comment on above: Performed By: #### C BC #### [facility] [address] [place] [address] Dr. Anup Paez MANUAL DIFF REQ NO Normal [facility] Comment on above: Performed By: #### C BC #### [facility] [address] [place] [address] Dr. Anup Paez MCH (RBC) [Entitic mass] 30.1 pg Normal 25.9-34.0 [facility] Comment on above: Performed By: #### C BC #### [facility] [address] [place] [address] Dr. Anup Paez MCHC (RBC) [Mass/Vol] 32.4 g/dL Normal 29.9-35.2 [facility] Comment on above: Performed By: #### C BC #### [facility] [address] [place] [address] Dr. Anup Paez MCV (RBC) [Entitic vol] 92.7 fL Normal 80.0-94.0 [facility] Comment on above: Performed By: #### C BC #### [facility] [address] [place] [address] Dr. Anup Paez MONO # 0.5 103/ul Normal 0.3-0.8 [facility] Comment on above: Performed By: #### C BC #### [facility] [address] [place] [address] Dr. Anup Paez Monocytes/100 WBC (Bld) 11.6 % Normal 1.7-12.0 [facility] Comment on above: Performed By: #### C BC #### [facility] [address] [place] [address] Dr. Anup Paez NEUT # 2.1 103/ul Normal 1.4-6.5 [facility] Comment on above: Performed By: #### C BC #### [facility] [address] [place] [address] Dr. Anup Paez Neutrophils/100 WBC (Bld) 46.9 % Normal 43.0-75.0 [facility] Comment on above: Performed By: #### C BC #### [facility] [address] [address] [address] Anup Paez Platelet mean volume (Bld) [Entitic vol] 12.0 fL Normal 9.5-13.5 [facility] Comment on above: Performed By: #### C BC #### [facility] [address] [address] [address] Anup Paez PLT 107 103/ul Critically low 150-450 [facility] Comment on above: Performed By: #### C BC #### [facility] [address] [address] [address] Anup Paez RBC 4.79 106/ul Normal 4.70-6.10 [facility] Comment on above: Performed By: #### C BC #### [facility] [address] [place] [address] Dr. Anup Paez WBC 4.6 103/ul Normal 4.0-11.0 [facility] Comment on above: Performed By: #### C BC #### [facility] [address] [place] [address] Dr. Anup Paez LIPID PROFILEon 02-19-2022 CHOL-HDL RATIO NORM SEE BELOW Normal [facility] Comment on above: Result Comment: 3.3 - 4.4 LOW RISK 4.4 - 7.1 AVERAGE RISK 7.1 - 11.0 MODERATE RISK >11.0 HIGH RISK Performed By: #### C MP, LIPID #### [facility] [address] [place] [address] Dr. Anup Paez Cholesterol [Mass/Vol] 120 mg/dL Normal <=200 [facility] Comment on above: Performed By: #### C MP, LIPID #### [facility] [address] [place] [address] Dr. Anup Paez Cholesterol in HDL [Mass/Vol] 33 mg/dL Critically low 40-60 [facility] Comment on above: Performed By: #### C MP, LIPID #### [facility] [address] [place] [address] Dr. Anup Paez Cholesterol in LDL [Mass/Vol] 68.2 mg/dL Normal [facility] Comment on above: Performed By: #### C MP, LIPID #### [facility] [address] [address] [address] Anup Paez Cholesterol.total/Cho lesterol in HDL [Mass ratio] 3.6 {ratio} Normal [facility] Comment on above: Performed By: #### C MP, LIPID #### [facility] [address] [address] [address] Anup Paez HDL NORMAL > or = 60 mg/dl - LO W CARDIOVASCULAR RISK <40 mg/dl - HIGH CARDIOVASCULAR RISK Normal [facility] Comment on above: Performed By: #### C MP, LIPID #### [facility] [address] [address] [address] Anup Paez LDL CALC NORMAL SEE BELOW Normal [facility] Comment on above: Result Comment: <100 mg/dl OPTIMAL 100 - 129 mg/dl NEAR OR ABOVE OPTIMAL 130 - 159 mg/dl BORDERLINE HIGH 160 - 189 mg/dl HIGH >190 mg/dl VERY HIGH Performed By: #### C MP, LIPID #### [facility] [address] [address] [address] Anup Paez Triglyceride [Mass/Vol] 94 mg/dL Normal <=150 [facility] Comment on above: Performed By: #### C MP, LIPID #### [facility] [address] [place] [address] Dr. Anup Paez VLDL CALC 18.8 mg/dL Normal [facility] Comment on above: Performed By: #### C MP, LIPID #### [facility] [address] [address] [address] Anup Paez PROF 14(COMP METB)on 022 Albumin [Mass/Vol] 3.6 g/dL Normal 3.4-5.0 [facility] Comment on above: Performed By: #### C MP, LIPID #### [facility] [address] [place] [address] Dr. Anup Paez Albumin/Globulin [Mass ratio] 1.0 {ratio} Normal [facility] Comment on above: Performed By: #### C MP, LIPID #### [facility] [address] [address] [address] Anup Paez ALP [Catalytic activity/Vol] 97 U/L Normal 46-116 [facility] Comment on above: Performed By: #### C MP, LIPID #### [facility] [address] [address] [address] Anup Paez ALT [Catalytic activity/Vol] 33 U/L Normal 16-63 [facility] Comment on above: Performed By: #### C MP, LIPID #### [facility] [address] [address] [address] Anup Paez Anion gap [Moles/Vol] 11.5 mmol/L Normal [facility] Comment on above: Performed By: #### C MP, LIPID #### [facility] [address] [place] [address] Dr. Anup Paez AST [Catalytic activity/Vol] 21 U/L Normal 15-37 [facility] Comment on above: Performed By: #### C MP, LIPID #### [facility] [address] [address] [address] Anup Paez Bilirubin [Mass/Vol] 0.4 mg/dL Normal 0.2-1.0 [facility] Comment on above: Performed By: #### C MP, LIPID #### [facility] [address] [place] [address] Dr. Anup Paez Calcium [Mass/Vol] 8.5 mg/dL Normal 8.5-10.1 [facility] Comment on above: Performed By: #### C MP, LIPID #### [facility] [address] [address] [address] Anup Paez Chloride [Moles/Vol] 106 mmol/L Normal 98-107 [facility] Comment on above: Performed By: #### C MP, LIPID #### [facility] [address] [address] [address] Anup Paez CO2 [Moles/Vol] 26.3 mmol/L Normal 21.0-32.0 [facility] Comment on above: Performed By: #### C MP, LIPID #### [facility] [address] [address] [address] Anup Paez Creatinine [Mass/Vol] 1.26 mg/dL Normal 0.70-1.30 [facility] Comment on above: Performed By: #### C MP, LIPID #### [facility] [address] [address] [address] Anup Paez EGFR-AF [place] >60 Normal >=60 [facility] Comment on above: Performed By: #### C MP, LIPID #### [facility] [address] [address] [address] Anup Paez EGFR-NON AF [place] 57 mL/min/1.73m2 Critically low >=60 [facility] Comment on above: Performed By: #### C MP, LIPID #### [facility] [address] [address] [address] Anup Paez Globulin (S) [Mass/Vol] 3.6 g/dL Normal [facility] Comment on above: Performed By: #### C MP, LIPID #### [facility] [address] [address] [address] Anup Paez Glucose [Mass/Vol] 95 mg/dL Normal 74-106 [facility] Comment on above: Performed By: #### C MP, LIPID #### [facility] [address] [address] [address] Anup Paez Potassium [Moles/Vol] 3.8 mmol/L Normal 3.5-5.1 [facility] Comment on above: Performed By: #### C MP, LIPID #### [facility] [address] [address] [address] Anup Paez Protein [Mass/Vol] 7.2 g/dL Normal 6.4-8.2 [facility] Comment on above: Performed By: #### C MP, LIPID #### [facility] [address] [address] [address] Anup Paez Sodium [Moles/Vol] 140 mmol/L Normal 136-145 [facility] Comment on above: Performed By: #### C MP, LIPID #### [facility] [address] [place], [place] [address] Dr. Anup Paez Urea nitrogen [Mass/Vol] 16.0 mg/dL Normal 7.0-18.0 [facility] Comment on above: Performed By: #### C MP, LIPID #### [facility] [address] [place], [place] [address] Dr. Anup Paez Urea nitrogen/Creatinine [Mass ratio] 12.7 mg/mg Normal [facility] Comment on above: Performed By: #### C MP, LIPID #### [facility] [address] [place], [place] [address] Dr. Anup Paez PSA Total (Not a Screen)on 0 04-01-2021 PSA Total (Not a Screen) 0.620 ng/mL Normal 0.000-4.000 [facility] Comment on above: Result Comment: PERF ORMED BY: [place] [address] PATHOLOGIST LOAN ASSISTANT MARITZA MONTANO M.D. Performed By: #### P SATOTAL #### [address] XR ankle LT min 3V*on 2020 XR ankle LT min 3V* [facility] [place] [address] XRay Report Signed Patient: Maximino Clarke MR#: [id number] 297 : 1955 Acct:[id number] Age/Sex: 65 / M ADM Date: 01/11/21 Loc: XDUCLY Room: Type: [facility] Attending Dr: Ailin PARRA Ordering Provider: [...] Dinora Brink M.D.01/11/2021 12:35 PM Dictation Location: [place] [address] Transcribed By: [facility] 01/11/21 1235 Dictated By: Dinora Brink MD 01/11/21 1234 Signed By: 01/11/21 1235 [facility] Pulmonary Functionon 11-22-2 020 Pulmonary Function MR #: [id number] [facility] PT. Name: Maximino Clarke Date: 08/14/2020 [...] Scruggs MD Date Trans: 08/23/2020 05:28 P/ [id number] cc: Asha Blandon M.D. [address] [place] [id number] Normal [facility] ARTERIAL BLOOD GAS W/COOXon 08-14-2020 BASE EXCESS 0 mmol/L Normal -2-3 [facility] Comment on above: Performed By: #### 4 0055 #### [facility] [address] [place] [address], [facility] COHB 1.2 % Normal 0.0-1.5 [facility] Comment on above: Performed By: #### 4 0055 #### [facility] [address] [place] [address], [facility] [employer] ROOM AIR Normal [facility] Comment on above: Performed By: #### 4 0055 #### [facility] [address] [place] [address], [facility] FIO2 0 % Normal [facility] Comment on above: Performed By: #### 4 0055 #### [facility] [facility] [address] [place] [address], [facility] HCO3 (Bld) [Moles/Vol] 23 mmol/L Normal 21-28 [facility] Comment on above: Performed By: #### 4 0055 #### [facility] [address] [place] [address], [place] METHB 1.0 % Normal 0.0-1.5 [facility] Comment on above: Performed By: #### 4 0055 #### [facility] [address] [place] [address], [facility] Oxygen (Bld) [Partial pressure] 88 mm[Hg] Normal 83-108 [facility] Comment on above: Performed By: #### 4 0055 #### [facility] [address] [place] [address], [facility] Oxygen saturation in Blood 95.5 % Normal 94.0-97.0 [facility] Comment on above: Performed By: #### 4 0055 #### [facility] [address] [place] [address], [facility] PCO2 32 mmHg Low 35-45 [facility] Comment on above: Performed By: #### 4 0055 #### [facility] [address] [place] [address], [facility] pH (Bld) 7.46 [pH] High 7.35-7.45 [facility] Comment on above: Performed By: #### 4 0055 #### [facility] [address] [place] [address], [facility] THB 12.0 g/dL Normal 12.0-16.3 [facility] Comment on above: Performed By: #### 4 0055 #### [facility] [address] Pulmonary Functionon 020 Pulmonary Function MR #: [id number] [facility] PT. Name: Maximino Clarke Date: 05/11/2020 [...] Scruggs MD Date Trans: 05/23/2020 05:08 P/ [id number] cc: Asha Blandon M.D. [address] [place] [phone] Normal [facility] ARTERIAL BLOOD GAS W/COOXon 05-11-2020 BASE EXCESS -1 mmol/L Normal -2-3 [facility] Comment on above: Performed By: #### 4 0055 #### [facility] [address] [facility] [place] [address], [facility] COHB 1.5 % Normal 0.0-1.5 [facility] Comment on above: Performed By: #### 4 0055 #### [facility] [address] [facility] [place] [address], [facility] DELIVERY SYSTEMS RA Normal [facility] Comment on above: Performed By: #### 4 0055 #### [facility] [address] [facility] [place] [address], [facility] FIO2 0 % Normal [facility] Comment on above: Performed By: #### 4 0055 #### [facility] [address] [place] [address], [facility] HCO3 (Bld) [Moles/Vol] 22 mmol/L Normal 21-28 [facility] Comment on above: Performed By: #### 4 0055 #### [facility] [address] [place] [address], [facility] METHB 1.0 % Normal 0.0-1.5 [facility] Comment on above: Performed By: #### 4 0055 #### [facility] [address] Oxygen (Bld) [Partial pressure] 95 mm[Hg] Normal 83-108 [facility] Comment on above: Performed By: #### 4 0055 #### [facility] [address] [facility]. [address] Oxygen saturation in Blood 96.5 % Normal 94.0-97.0 [facility] Comment on above: Performed By: #### 4 0055 #### [facility] [address] [facility]. [address] PCO2 31 mmHg Low 35-45 [facility] Comment on above: Performed By: #### 4 0055 #### [facility] [address] [place] [address], [facility] pH (Bld) 7.46 [pH] High 7.35-7.45 [facility] Comment on above: Performed By: #### 4 0055 #### [facility] [address] [facility] [place] [address], [facility] THB 12.2 g/dL Normal 12.0-16.3 [facility] Comment on above: Performed By: #### 4 0055 #### [facility] [address] *SARS-CoV-2 COVID-19on 05-08 [id number] Not Detected Normal Not Detected [facility] Comment on above: Order Comment: The A ptima SARS-CoV-2 assay is a nucleic acid amplification test intended for the qualitative detection of RNA from SARS-CoV-2 isolated and purified from nasopharyngeal (ASSISTANT PUBLIC DEFENDER),oropharyngeal (OP), nasal swab, sputum, and bronchoalveolar lavage (BAL) specimens from patients with signs and symptoms of infection who are suspected of COVID-19. Results are for the identification of SARS-CoV-2 RNA. The SARS-CoV-2 RNA is generally detectable during the acute phase of infection. The Aptima SARS-CoV-2 Assay on the [employer] [employer] system is intended for use by laboratory personnel specifically instructed and trained in the operation of the [employer] [employer] system. The Aptima SARS-CoV-2 assay is [...] information. Performed By: #### 3 1792 #### [address] CHEST HIGH RESOLUTION WIT HOUT CONTRASTon 04-22-2020 CT CHEST HIGH RESOLUTION WITHOUT CONTRAST [facility] Department of Radiology [address] [place] [phone] ======== Patient Name: MAXIMINO CLARKE : 1955 Sex: M Age: Race: Black Pt. Location: 371 Patient Status: O Ordered Date: 03/20/2020 1:35:00 PM Completed Date: 04/22/2020 09:10 AM Requesting Provider: NICKY BORDEN Attending Provider: NICKY BORDEN Report Copy To: ASHA BLANDON Signs & Symptoms: J84.9 Interstitial pulmonary disease, unspecified I10 History: [employer] [facility] with [facility] [address] [address] chest[address] auth#[id number] valid 03/24-06/24/2020 phone: [phone] No to all COVID questions - jlr [...] achievable Electronically signed: Ana Dhillon. Transcribed by: [email or web address], User Resident: Electronically Signed by: ANA DHILLON @ 04/22/2020 12:42 PM Normal [facility] Comment on above: Order Comment: Brian cols: inspiratory and excpiratory films for air trapping *SARS-CoV-2 COVID-19on 03-19 [id number] Not Detected Normal Not Detected [facility] Comment on above: Order Comment: The A ptima SARS-CoV-2 assay is a nucleic acid amplification test intended for the qualitative detection of RNA from SARS-CoV-2 isolated and purified from nasopharyngeal (ASSISTANT PUBLIC DEFENDER), nasal and oropharyngeal (OP) swab specimens from patients with signs and symptoms of infection who are suspected of COVID-19. Results are for the identification of SARS-CoV-2 RNA. The SARS-CoV-2 RNA is generally detectable in nasopharyngeal and oropharyngeal swabs during the acute phase of infection. The Aptima SARS-CoV-2 Assay on the [employer] Fusion system is intended for use by laboratory personnel specifically instructed and trained in the operation of the [place] [employer] [place] [employer] system. The Aptima SARS-CoV-2 assay is [...] By: #### 3 1792 #### [facility] [address] Pulmonary Functionon 020 Pulmonary Function MR #: [id number] [facility] PT. Name: Maximino Clarke Date: 01/25/2019 [...] Mcdermott MD Date Trans: 12/10/2019 12:08 A/ [id number] cc: Asha Blandon M.D. [address] [place] [phone] [place] [facility] Vital Signs Date Time Vital Sign Value Performing Clinician Facility 12-03-2024 11:25-0500 Diastolic blood pressure 101 mm[Hg] JONNIE ESTRELLA [facility] 12-03-2024 11:25-0500 Mean blood pressure 114 mm[Hg] JONNIE ESTRELLA [facility] 12-03-2024 11:25-0500 Systolic blood pressure 141 mm[Hg] JONNIE ESTRELLA [facility] 12-03-2024 11:16-0500 Blood Pressure Location JONNIE SAMEER [facility] 12-03-2024 11:16-0500 Diastolic blood pressure 99 mm[Hg] JONNIE SAMEER [facility] 12-03-2024 11:16-0500 Heart rate 77 /min JONNIEDL ESTRELLA [facility] 12-03-2024 11:16-0500 Respiratory rate 18 /min JONNIE SAMEER [facility] 12-03-2024 11:16-0500 Systolic blood pressure 135 mm[Hg] JONNIE LYONSRY [facility] 11-28-2024 09:48-0500 Body height 172.72 cm [facility] 11-28-2024 09:48-0500 Body mass index (BMI) [Ratio] 31.4 kg/m2 [facility] 11-28-2024 09:48-0500 Body temperature 96.2 [degF] [facility] 11-28-2024 09:48-0500 Body weight 93.55 kg [facility] 11-28-2024 09:48-0500 Diastolic blood pressure 88 mm[Hg] [facility] 11-28-2024 09:48-0500 Heart rate 61 /min [facility] 11-28-2024 09:48-0500 Respiratory rate 18 /min [facility] 11-28-2024 09:48-0500 SaO2% (BldA) [Mass fraction] 95 % [facility] 11-28-2024 09:48-0500 Systolic blood pressure 134 mm[Hg] [facility] 06-13-2024 09:49-0400 Body height 172.72 cm [facility] 06-13-2024 09:49-0400 Body mass index (BMI) [Ratio] 29.6 kg/m2 [facility] 06-13-2024 09:49-0400 Body temperature 96.7 [degF] [facility] 06-13-2024 09:49-0400 Body weight 88.5 kg [facility] 06-13-2024 09:49-0400 Diastolic blood pressure 91 mm[Hg] [facility] 06-13-2024 09:49-0400 Heart rate 54 /min [facility] 06-13-2024 09:49-0400 Respiratory rate 16 /min [facility] 06-13-2024 09:49-0400 SaO2% (BldA) [Mass fraction] 98 % [facility] 06-13-2024 09:49-0400 Systolic blood pressure 132 mm[Hg] [facility] 04-25-2024 09:50-0400 Body height 172.72 cm [facility] 04-25-2024 09:50-0400 Body mass index (BMI) [Ratio] 29.8 kg/m2 [facility] 04-25-2024 09:50-0400 Body temperature 97.3 [degF] [facility] 04-25-2024 09:50-0400 Body weight 89.07 kg [facility] 04-25-2024 09:50-0400 Diastolic blood pressure 90 mm[Hg] [facility] 04-25-2024 09:50-0400 Heart rate 63 /min [facility] 04-25-2024 09:50-0400 Respiratory rate 16 /min [facility] 04-25-2024 09:50-0400 SaO2% (BldA) [Mass fraction] 96 % [facility] 04-25-2024 09:50-0400 Systolic blood pressure 132 mm[Hg] [facility] 04-24-2024 13:51-0400 [facility] 04-24-2024 13:51-0400 Body mass index (BMI) [Ratio] 31.93 kg/m2 [facility] 04-24-2024 13:51-0400 Body weight 95.25 kg [facility] 04-01-2024 09:23-0400 Blood Pressure Location Saenz Sarmini [facility] 04-01-2024 09:23-0400 Diastolic blood pressure 80 mm[Hg] Saenz Sarmini [facility] 04-01-2024 09:23-0400 Heart rate 86 /min Saenz Sarmini [facility] 04-01-2024 09:23-0400 Respiratory rate 18 /min Saenz Sarmini [facility] 04-01-2024 09:23-0400 Systolic blood pressure 126 mm[Hg] Saenz Sarmini [facility] 12-04-2023 08:58-0500 Blood Pressure Location Jim RUTHERFORD [facility] 12-04-2023 08:58-0500 Body temperature 98.42 [degF] Jim RUTHERFORD [facility] 12-04-2023 08:58-0500 Diastolic blood pressure 92 mm[Hg] Jim RUTHERFORD [facility] 12-04-2023 08:58-0500 Heart rate 90 /min Jim RUTHERFORD [facility] 12-04-2023 08:58-0500 Respiratory rate 17 /min Jim RUTHERFORD [facility] 12-04-2023 08:58-0500 Systolic blood pressure 155 mm[Hg] Jim RUTHERFORD [facility] 07-14-2023 13:35-0400 Diastolic blood pressure 108 mm[Hg] Mary Ellen Emilee [facility] 07-14-2023 13:35-0400 Mean blood pressure 125 mm[Hg] Mary Ellen Emilee [facility] 07-14-2023 13:35-0400 Systolic blood pressure 158 mm[Hg] Mary Ellen Emilee [facility] 11-22-2022 15:37-0500 Blood Pressure Location Grzegorz ORTIZL [facility] [place] 11-22-2022 15:37-0500 Diastolic blood pressure 90 mm[Hg] Grzegorz ORTIZL [facility] [place] 11-22-2022 15:37-0500 Heart rate 68 /min Grzegorz NILL [facility] [place] 11-22-2022 15:37-0500 Respiratory rate 16 /min Grzegorz NILL [facility] [place] 11-22-2022 15:37-0500 Systolic blood pressure 126 mm[Hg] Grzegorz NILL [facility] [place] Encounters Encounter Date Encounter Type Care Provider Facility Start: 12-04-2025 ambulatory JONNIE ESTRELLA Facili ty:[facility] Start: 11-27-2025 ambulatory JONNIE Amy LYONSRY Facili ty:[facility] [place] Start: 12-03-2024 End: 12-03-2024 Lab Drop off JONNIE LYONSRY [facility] Start: 12-03-2024 End: 12-03-2024 ambulatory JONNIE [facility]SRY [facility] Start: 12-03-2024 End: 12-03-2024 Patient encounter procedure JONNIE ESTRELLA [facility] Start: 11-28-2024 End: 11-28-2024 ambulatory [facility] Work Phone: Start: 11-28-2024 End: 11-28-2024 Patient encounter procedure [facility] Elpidio Work Phone: Start: 11-15-2024 Non-patient / Non-visit [facility] Work Phone: Start: 11-13-2024 End: 11-13-2024 ambulatory [facility] Start: 10-07-2024 End: 10-07-2024 ambulatory Mary Ellen Hebert Facility:[facility] Start: 06-13-2024 End: 06-13-2024 ambulatory [facility] Work Phone: Start: 06-13-2024 End: 06-13-2024 Patient encounter procedure [facility] El[facility]io Work Phone: Start: 05-27-2024 End: 05-28-2024 ambulatory [facility] Start: 05-02-2024 End: 05-02-2024 Evaluation and management of inpatient SHERLY Matamoros'CASSY [facility] Start: 04-30-2024 End: 05-02-2024 Evaluation and management of inpatient CARLA S [facility] Start: 04-25-2024 End: 04-25-2024 ambulatory [facility] Work Phone: Start: 04-25-2024 End: 04-25-2024 Patient encounter procedure [facility] El[facility] Work Phone: Start: 04-24-2024 End: 04-24-2024 Evaluation and management of inpatient SURINDER ESCALONA [facility] Start: 04-23-2024 End: 04-24-2024 Admission to [facility] Phone Call Provider 4 Rehana Colindres [facility] Start: 04-01-2024 End: 04-01-2024 ambulatory Mary Ellen L Emilee Facility[facility] Start: 04-01-2024 End: 04-01-2024 Patient encounter procedure Letty Ryan [facility] Start: 02-07-2024 ambulatory Mary Ellen Emilee Facility:[facility] Start: 01-02-2024 End: 01-02-2024 ambulatory Mary Ellen L Emilee Facility:[facility] [place] Start: 12-28-2023 End: 12-28-2023 ambulatory Mary Ellen L Emilee Facility:[facility] [place] Start: 12-04-2023 End: 12-04-2023 Patient encounter procedure Jim RUTHERFORD [facility]min Start: 07-14-2023 End: 07-14-2023 Lab Drop off Mary Ellen L Emilee [facility] Start: 12-28-2022 End: 12-28-2022 Patient encounter procedure Grzegorz BUSTILLO [facility] Nill[facility] [place] Start: 12-14-2022 End: 12-14-[address] ASHA BLANDON . Facility:[facility] Start: 11-22-2022 End: 11-22-2022 Patient encounter procedure Grzegorz R DANNA [facility] Nill/Said [facility] Start: 10-11-2022 End: 10-12-[address] ASHA BLANDON . Facility:[facility] Start: 02-24-2022 Encounter for genera l adult medical examination without abnormal findings DR ASHA BLANDON . [facility] Start: 02-19-2022 End: 02-20-[address] ASHA BLANDON . Facility:[facility] Start: 02-19-2022 End: 02-20-2022 Encounter for general adult medical examination without abnormal findings DR ASHA BLANDON . Facility:[facility] Procedures Date Procedure Procedure Detail Performing Clinician Start: 12-14-2022 Colonoscopy Grzegorz NI LL Start: 02-19-[address] ASHA LEDEZMA . Comment on above: Performed By: #### P [facility] #### [facility] [address] [place] [address] Dr. Anup Paez Start: 04-29-2019 Transrectal biopsy o f prostate using ultrasound guidance Grzegorz NILL Start: 07-17-2017 Cystoscopy w/UD Grzegorz NILL Start: 04-09-2014 Cystoscopy Grzegorz NI LL Comment on above: w/green light laser of prostate Start: 09-11-2013 Colonoscopy Grzegorz NI LL Cardiac catheterization Mateus ael NILL Cardiac Stent Grzegorz NILL Extraction of cataract Patri ck RUTHERFORD Fluid Removed from Lungs Jax hael NILL Partial resection of colon M humphrey NILL Plan of Treatment Date Care Activity Detail Author Start: 06-02-2024 Influenza vaccination Influenza Vaccine [facility] Start: 04-30-2024 End: 04-30-2024 Admission to same day surgery center 04/30/2024 11:45 AM EDT - 04/30/2024 1:09 PM EDT Surgery [facility]oscopy [address] [place] [id number] Surinder Escalona MD [address] [place] [address] ESOPHAGOGASTRODUODENOSCOPY DIAGNOSTIC/ [31674 (CPT )] [facility] Comment on above: ESOPHAGOGASTRODUODENOSCOPY DIAGNOSTIC/ [ 21252 (CPT )] Start: 04-30-2024 End: 04-30-2024 Esophagogastroduodenoscopy transoral diagnostic ESOPHAGOGASTRODUODENOSCOPY DIAGNOSTIC PANCREATIC CYST, ABDOMINAL PAIN 04/30/2024 11:45 AM EDT [facility] Start: 04-30-2024 End: 04-30-2024 Esophagoscopy flexible transoral ultrasound exam ENDOSCOPIC ULTRASOUND UPPER PANCREATIC CYST, ABDOMINAL PAIN 04/30/2024 11:45 AM EDT [facility] Start: 04-30-2024 Subsequent hospital visit by physician 04/30/2024 11:45 AM EDT Hospital Encounter [facility] [address] [place] [id number] Surinder Escalona MD [address] [place] [address] [facility] Start: 06-02-2023 COVID-19 Vaccine ( season) COVID-19 Vaccine ( season) [facility] Start: 2022 Fall Risk Screening Fall Risk Screening [facility] Start: 2007 Administration of varicella zoster vaccine Zoster (Shingles) Vaccine (1 of 2) [facility] Start: 01-19-1976 DTaP,Tdap and Td Vaccines (1 - Tdap) DTaP,Tdap and Td Vaccines (1 - Tdap) [facility] Start: 1975 Adult BMI Screening Adult BMI Screening [facility] Start: 1969 Depression Screening Depression Screening [facility] Start: 1969 Tobacco Screening Tobacco Screening [facility] Start: 1955 Medicare Annual Wellness Visit Medicare Annual Wellness Visi t [facility] Renal function 2000 panel - Serum or Plasma [facility] Renal function 1999 panel - Serum or Plasma [facility] Renal function 1999 panel - Serum or Plasma [facility] Immunizations Immunization Date Immunization Notes Care Provider Candelaria valerio 07-08-2024 influenza virus vacc ine, unspecified formulation JONNIEDL ESTRELLA [facility] 07-05-2023 pneumococcal 20-jeri nt conjugate vaccine JONNIEDL ESTRELLA [facility] 07-05-2023 influenza virus vacc ine, unspecified formulation [facility] 06-09-2022 influenza virus vacc ine, unspecified formulation Grzegorz NILL [facility] 09-21-2021 SARS-CoV-2 (COVID-19 ) mRNA BNT-162b2 vax Grzegorz NILL [facility] 07-06-2021 influenza virus vacc ine, unspecified formulation JONNIE ESTRELLA [facility] 01-05-2021 SARS-CoV-2 (COVID-19 ) mRNA BNT-162b2 vax [address]zegorz NILL [facility] 12-14-2020 SARS-CoV-2 (COVID-19 ) mRNA BNT-162b2 vax [address]egorz NILL [facility] 08-06-2020 influenza virus vacc ine, unspecified formulation JONNIE ESTRELLA [facility] 07-01-2019 influenza virus vacc ine, unspecified formulation JONNIE ESTRELLA [facility] 07-01-2019 pneumococcal polysaccharide vaccine, 23 valent JONNIEQUYEN ESTRELLA [facility] 06-27-2018 influenza virus vacc ine, unspecified formulation JONNIE ESTRELLA [facility] 08-04-2015 influenza virus vacc ine, unspecified formulation JONNIE ESTRELLA [facility] Payers Date Payer Category Payer Medicare AETNA MEDICARE A ETNA MEDICARE PLAN (PPO) [id number] 2024-Present [phone] [address] [place] [address] [id number] 2024 Private Health Insurance [id number] 1959 Medicare [id number] 1959 Unknown [id number] 1959 Unknown [id number] 1957 Unknown [id number] 2.16.840.1.451613.3.579.2.5 93 1957 Unknown [id number] 2.16.840.1.434625.3.579.2.5 93 1957 Unknown [id number] 2.16.840.1.931822.3.579.2.5 93 1957 Unknown [id number] 2.16.840.1.999231.3.579.2.1 286 1957 Unknown [id number] 2.16.840.1.468890.3.579.2.1 286 1957 Unknown [id number] 2.16.840.1.259066.3.579.2.1 286 1957 Unknown [id number] 2.16.840.1.484201.3.579.2.1 286 1957 Unknown [id number] 2.16.840.1.360517.3.579.2.1 286 1957 Unknown [id number] 2.16.840.1.046556.3.579.2.1 286 1957 Unknown [id number] 2.16.840.1.736544.3.579.2.7 27 1957 Unknown [id number] 2.16.840.1.999585.3.579.2.7 27 1957 Unknown [id number] 2.16.840.1.100483.3.579.2.7 27 1957 Unknown [id number] 2.16.840.1.049048.3.579.2.7 27 1957 Unknown [id number] 2.16.840.1.658524.3.579.2.7 27 1957 Unknown [id number] 2.16.840.1.535502.3.579.2.7 27 1957 Unknown [id number] 2.16.840.1.348279.3.579.2.7 27 1957 Unknown [id number] 2.16.840.1.514675.3.579.2.7 27 1957 Unknown [id number] 2.16.840.1.250588.3.579.2.7 27 Self-pay Self Pay [id number] Social History Date Type Detail Facility Start: 11-22-2022 End: 12-03-2024 Tobacco smoking status Never smoked tobacco (finding) [facility] Tobacco smoking status Never [facility] Start: 09-02-2020 End: 11-04-2020 Sex Assigned At Male Nicho Sharma [facility] Start: 1955 Sex Assigned At Male [facility] Start: 04-24-2024 Tobacco smoking stat [facility] Ex-smoker [facility] History of tobacco use Current smoker [facility] History of tobacco use Cigarette Smoker P [facility] History of tobacco use Cigar Smoker [facility] Start: 04-24-2024 Alcoholic beverage intake Ex-drinker (finding) [facility] Start: 09-02-2020 End: 11-04-2020 History of Social function [facility] Start: 04-24-2024 Tobacco Comment Not currently used to cigar [facility] Start: 1955 Sex assigned at Not on file P [facility] Start: 11-28-2024 Sex Male (finding) [facility] Functional Status Date Assessment Result Facility 12-03-2024 Functional Status N/A [facility] 04-01-2024 Functional Status N/A [facility] 12-04-2023 Functional Status N/A [facility] 11-22-2022 Functional Status N/A [facility] Clinical Notes 12-14-2022 to 12-03-2024 Pre-Procedure Instructions - Adriana Kim RN - 04/23/2024 10:00 AM EDTPre- Procedure Instructions - Adriana Kim RN - 04/23/2024 10:00 AM EDT Note Date & Type Note Facility 12-03-2024 Hospital Discharge instructions Patient Education 12/03/2024 12:15:22 Benign Prostatic Hyperplasia Benign Prostatic Hyperplasia Benign [...] urethra. Follow these instructions at home: Take bjrn-kym-wwknyhd and prescription medicines only as told by [...] provider. Document Revised: 04/06/2022 Document Reviewed: 04/06/2022 [employer] Patient Education 2023 [employer]. Follow Up Care 12/04/2023 09:46:17 With:SAMEER DUNHAM, JONNIE Reyes, URL Address: [facility] [place] [address] [place] [address] When:Within 1 Year(s) [facility] 12-03-2024 Note Patient Education Urology Benign Prostatic Hyperplasia Benign [...] or symptoms? Symptoms of this condition include: ??? Getting up often during the night to urinate. ??? Needing to urinate frequently during the day. ??? Difficulty starting urine flow. ??? Decrease in size and strength of your urine stream. ??? Leaking (dribbling) after urinating. ??? Inability to pass urine. This needs immediate treatment. ??? Inability to completely empty your bladder. ??? Pain when you pass urine. This is more common if there is also an infection. ??? Urinary tract infection (UTI). How is this diagnosed? This condition is diagnosed based on your medical history, a physical exam, and your symptoms. Tests will also be done, such as: ??? A post-void bladder scan. This measures any amount of urine that may remain in your bladder after you finish urinating. ??? A digital rectal exam. In a rectal exam, your health care provider checks your prostate by putting a lubricated, gloved finger into your rectum to feel the back of your prostate gland. This exam detects the size of your gland and any abnormal lumps or growths. ??? An exam of your urine (urinalysis). ??? A prostate specific antigen (PSA) screening. This is a blood test used to screen for prostate cancer. ??? An ultrasound. This test uses sound waves [...] severity of your condition. Treatment may include: ??? Observation and yearly exams. This may be the only treatment needed if your condition and symptoms are mild. ??? Medicines to relieve your symptoms, including: ? Medicines to shrink the prostate. ? Medicines to relax the muscle of the prostate. ??? Surgery in severe cases. Surgery may include: [...] the urethra. Follow these instructions at home: ??? Take rabd-cwr-vpssgna and prescription medicines only as told by your health care provider. ??? Monitor your symptoms for any changes. Contact your health care provider with any changes. ??? Avoid drinking large amounts of liquid before going to bed or out in public. ??? Avoid or reduce how much caffeine or alcohol you drink. ??? Give yourself time when you urinate. ??? Keep all follow-up visits. This is important. Contact a health care provider if: ??? You have unexplained back pain. ??? Your symptoms do not get (more content not included)... [facility] 11-13-2024 Note Cardiology Clinic No te HPI: Maximino Clarke is a 69 y.o. [...] of the ascending aorta measuring 4.0 cm. CTA demonstrated mild anuerysmal dilation at 4.4 cm vs 4.3 cm in 2020. Patient here for 6 mo follow up CAD, hypertension, hyperlipidemia, and aortic dilatation. Carvedilol was increased to 9.375mg bid at last apt in May 2024, but he's taking 6.25mg in the AM and 9.375mg in the PM. He was also switched from pravastatin to rosuvastatin. Says he's tolerating the different statin without any issues. Still has nncardiac chest pain, which he says bothers him usually when he's driving. It is localized to a certain point and only happens when he is driving. Does not happen with exertion, even heavy exertion. Says his MARQUEZ remains stable and unchanged. Had CT chest and PFT's in Aug 2024. He doesn't think he's taking potassium. Cardiology ROS: Review of Systems Cardiovascular: Positive for chest pain and dyspnea on exertion. All other systems reviewed and are negative. Past Medical History He has a past [...] morning. carvedilol (Coreg) 6.25 mg tablet Take 1.5 tablets twice a day 270 tablet 3 cholecalciferol (Vitamin D-3) 25 MCG (1000 UT) capsule Take 1 capsule every day by oral route. hydroCHLOROthiazide (HYDRODiuril) 25 mg tablet Take 1 tablet (25 mg) by mouth in the morning. 30 tablet 11 losartan (Cozaar) 25 mg tablet Take 1 tablet (25 mg) by mouth in the morning. 30 tablet 11 potassium chloride CR (K-Tab) 20 mEq ER tablet Take 1 tablet (20 mEq) by mouth in the morning. Do not crush, chew, or split. 5 tablet 0 pravastatin (Pravachol) 20 mg tablet Take 1 tablet by mouth at bedtime. predniSONE (Deltasone) 10 mg tablet Take 10 mg by mouth if needed. Pulmicort Flexhaler 90 mcg/actuation inhaler Inhale 1 puff in the morning and at bedtime. rosuvastatin (Crestor) 20 mg tablet TAKE 1 TABLET(20 MG) BY MOUTH IN THE MORNING 90 tablet 3 No current facility-administered medications on file prior to visit. Allergies Patient has no known allergies. Physical Exam VITAL SIGNS: There were no vitals taken for this visit. Constitutional: Well developed, Well nourished, No acute [...] Radiology: CT chest wo IV contrast Narrative: [facility] Department of Radiology [address] [place] [address] ======== Patient Name: MAXIMINO CLARKE (more content not included)... [facility] 05-27-2024 Note Cardiology Clinic No te Chief [...] Radiology: CT chest wo IV contrast Narrative: [facility] Department of Radiology [address] [place] [address] ======== Patient Name: MAXIMINO CLARKE : 1955 Sex: M Age: Race: Black^Black/ Pt. Location: [id number] Patient Status: O (more content not included)... [facility] 04-23-2024 Instructions Formatting of th is note might be different from the original. Your surgery/procedure is scheduled at [facility] on 04/30/2024 at 11:45 am Arrival Time 9:45 am [facility] Address: [address] [place] [address] Park in [address] Parking lot located on [facility]. Report to the Entrance B. Check in at the information desk the surgery. The waiting room located on the second floor. If you have any questions prior to surgery, please call Pre-Admission Clinic at [phone] between 7:30 am and 4:30 pm Monday through Monday. If you have questions the morning of surgery, please call the Pre-op Department at [phone]. Notify your SURGEON if you develop any illness such as a cold, cough, fever, sore throat, vomiting or are hospitalized between now and your surgery. CONTINUE TO TAKE YOUR MEDICATIONS PRESCRIBED. DO NOT STOP YOUR PRESCRIBED MEDICATIONS UNLESS DIRECTED BY YOUR PRESCRIBING PHYSICIAN Take the following medications the morning of surgery with a sip of water: Crestor, Nexium, Coreg Take inhalers as prescribed the morning of surgery. . Blood thinners: Medications such as Coumadin, Heparin, Aspirin, Plavix, Eliquis, Pradaxa) Please contact your physician regarding a stop/hold date for these medications. Please call MD to clarify Aspirin Diabetics: If you take insulin, contact your prescribing doctor for instructions on how to manage this the night before and the morning of surgery. Non-steriodal Anti-Inflammatory Drugs (NSAIDS)- Stop 3 days prior to surgery unless otherwise directed by your surgeon. Vitamins/Herbal Products: You may continue to take your prescribed vitamins such as potassium, iron, vitamin B, vitamin C, or multivitamin unless specifically instructed by your surgeon to stop. STOP taking all herbal products/teas one week prior to your surgery. Marijuana: Stop marijuana 72 hours prior to surgery, stop CBD oil 48 hours prior to surgery. If you have been given bowel prep instructions by your surgeon, please call the surgeon's office with any questions about these instructions. What do I do the day of Surgery? Age 2 through adult - Stop all solids by midnight, You may have clear liquids up to 2 hours before surgery, unless otherwise instructed by your surgeon. Clear liquids are: water, sports drinks such as Gatorade or G2, or apple juice. You may NOT have: tube feedings, dairy products, alcoholic beverages, orange juice, or any liquids with solids or pulp in it. If applicable, shower again with CHG soap the morning of your surgery. If you received a green plastic bracelet, bring it with you the day of surgery and your nurse will put it on you. In order to help prevent infection post-operatively, you may be asked to use a CHG mouthwash when you arrive to the Pre-op area. Your nurse will provide instruction the morning of. What do I need to do to prepare for surgery? If you will be going home the same day as your surgery, arrange for an adult over [address] Riding in a bus or taxi by yourself is not permitted. You should not smoke or drink alcohol 24 hours before your surgery. Alcohol thins the blood and may cause bleeding problems during surgery. Smoking increases the risk of breathing problems after surgery. If you have been assigned RUDDY Education by your surgeon's office, please complete this education prior to your surgery. For questions regarding RUDDY education, reach out to your surgeon's office. If you have been given a prescription for occupational, physical or speech therapy, please set up these appointments before your procedure. If you would like to schedule therapy at a [facility] facility, please call [phone] ([phone]). Do not use lotions, creams, powders, perfume, make up, cologne or after-shaves day of surgery. Remove ALL jewelry including wedding rings, body piercings,hair extensions that contain metal, nail citizen of [place], make-up, and contact lens. You may brush your teeth the morning of surgery, but do not swallow the water. Wear your dentures and partial plates to the hospital (no adhesive). Shower the night the before. If applicable, use the CHG (chlorhexidine gluconate) soap or wipes What should I bring to the hospital? If you received a green plastic bracelet, bring it with you the day of surgery and your nurse will put it on you. Eyeglass or contact lens case If you will be spending the night, please bring personal care items and leave them in the car until you are taken to your room after surgery. Leave ALL valuables at home. If any of these instructions conflict with those you received from the surgeon, please seek clarification from your surgeon's office. DEEP BREATHING EXERCISES This exercise helps promote good air exchange and helps to prevent pneumonia after surgery. Breathe in slowly and deeply through the nose. Hold your breath for a few seconds and then exhale slowly through the mouth. Repeat this three times and then cough.Coughing helps to clear your lungs. If you have had a surgery with an incision into your abdomen or chest, press gently against your incision with a pillow or a folded blanket when you cough. Please be aware - it may not be kim to cough following some types of surgeries involving the eyes, ears, sinuses and throat. Always follow your doctor's instructions. LEG EXERCISE These exercises help promote good circulation and help to prevent blood clots after surgery. Point your toes to the ceiling and then point them to the wall. Do this slowly about 15-20 times. You may also move your feet in circles. Do the exercise that is most comfortable for you. If you have had surgery involving your shoulder or arm, we recommend you move your fingers. PRACTICING We ask that you begin practicing these exercises before your surgery. After surgery try to do both exercises at least every 2 hours during the day and early evening. SURGICAL SITE INFECTION PREVENTION What is a Surgical Site Infection? Infection can happen to the area of the body where surgery is done. This is called a surgical site infection (SSI). A SSI does not happen very often. Can SSIs be treated? Antibiotics are used to treat SSI. Some patients may need another surgery to treat the infection. The doctor will discuss treatment options with you. What are some of the things that hospitals are doing to prevent SSIs? Soap and water or alcohol hand rub are used before and after caring for each patient. Special soap is used to clean surgery workers hands and arms just before the surgery. Masks, gowns, gloves and hair covers are worn during the surgery to keep the area clean. Hair in the surgery area may be removed with clippers (not razors). A special soap that kills germs is used to clean the skin at the surgery site. Antibiotics may be given before the surgery starts. What can you do to prevent SSIs? Before surgery: You may be asked to shower or bathe with a special soap that kills germs the night before and the day of surgery. Use the soap as you were told. If you smoke, stop or cut down. Ask your doctor about ways to quit. Do not shave near where you will have surgery. Shaving can irritate the skin and make it easier to get and infection. After surgery: Be sure that the doctors and nurses clean their hands before and after touching you. Be sure your family and friends clean their hands before and after visiting you. Do not be afraid to remind them. * Care for your wound at home as told by your doctor or nurse * Call your doctor right away if you have fever, redness, increased pain, or drainage at the surgery site. Further questions? Contact the doctor, nurse or the Infection Prevention and Control department if you have any questions. PATIENT RIGHTS AND RESPONSIBILITIES As a patient at [facility], you have the right to: Receive medical care and be informed of who is taking care of you Be treated with dignity and respect Have a family member/high school admissions representative of choice and your physician notified of your admission Receive information and actively participate in decisions about your care and treatment Refuse care, treatment and services Decide who may provide your support and speak for you Access alevism and spiritual services Participate in ethical issues and questions about your care Receive private and confidential care Have appropriate assessment and management of your pain Know guest visitation restrictions or limitations Have an advance directive Access protective services Consent or refuse to participate in research studies or production or recordings, films or other images Have resolution of your complaints Receive information of hospital charges and payment methods Patient/patient high school admissions representative responsibilities are to: Provide information about health status to facilitate care, treatment and services Follow the treatment, plan, keep appointments and speak up when you do not understand the plan Respect the rights of other patients and healthcare personnel Follow organizational rules and regulations that support quality care and a safe environment Fulfill financial obligations as promptly as possible [facility] 04-23-2024 Miscellaneous Notes Your surgery/procedure is scheduled at [facility] on 04/30/2024 at 11:45 am Arrival Time 9:45 am [facility] Address: [address] [place] [address]. [place] [address] Park in [address] Parking lot located on [facility]. Report to the Entrance B. Check in at the information desk the surgery. The waiting room located on the second floor. If you have any questions prior to surgery, please call Pre-Admission Clinic at [phone] between 7:30 am and 4:30 pm Monday through Monday. If you have questions the morning of surgery, please call the Pre-op Department at [phone]. Notify your SURGEON if you develop any illness such as a cold, cough, fever, sore throat, vomiting or are hospitalized between now and your surgery. CONTINUE TO TAKE YOUR MEDICATIONS PRESCRIBED. DO NOT STOP YOUR PRESCRIBED MEDICATIONS UNLESS DIRECTED BY YOUR PRESCRIBING PHYSICIAN Take the following medications the morning of surgery with a sip of water: Crestor, Nexium, Coreg Take inhalers as prescribed the morning of surgery. . Blood thinners: Medications such as Coumadin, Heparin, Aspirin, Plavix, Eliquis, Pradaxa) Please contact your physician regarding a stop/hold date for these medications. Please call MD to clarify Aspirin Diabetics: If you take insulin, contact your prescribing doctor for instructions on how to manage this the night before and the morning of surgery. Non-steriodal Anti-Inflammatory Drugs (NSAIDS)- Stop 3 days prior to surgery unless otherwise directed by your surgeon. Vitamins/Herbal Products: You may continue to take your prescribed vitamins such as potassium, iron, vitamin B, vitamin C, or multivitamin unless specifically instructed by your surgeon to stop. STOP taking all herbal products/teas one week prior to your surgery. Marijuana: Stop marijuana 72 hours prior to surgery, stop CBD oil 48 hours prior to surgery. If you have been given bowel prep instructions by your surgeon, please call the surgeon's office with any questions about these instructions. What do I do the day of Surgery? Age 2 through adult - Stop all solids by midnight, You may have clear liquids up to 2 hours before surgery, unless otherwise instructed by your surgeon. Clear liquids are: water, sports drinks such as Gatorade or G2, or apple juice. You may NOT have: tube feedings, dairy products, alcoholic beverages, orange juice, or any liquids with solids or pulp in it. If applicable, shower again with CHG soap the morning of your surgery. If you received a green plastic bracelet, bring it with you the day of surgery and your nurse will put it on you. In order to help prevent infection post-operatively, you may be asked to use a CHG mouthwash when you arrive to the Pre-op area. Your nurse will provide instruction the morning of. What do I need to do to prepare for surgery? If you will be going home the same day as your surgery, arrange for an adult over [address] Riding in a bus or taxi by yourself is not permitted. You should not smoke or drink alcohol 24 hours before your surgery. Alcohol thins the blood and may cause bleeding problems during surgery. Smoking increases the risk of breathing problems after surgery. If you have been assigned RUDDY Education by your surgeon's office, please complete this education prior to your surgery. For questions regarding RUDDY education, reach out to your surgeon's office. If you have been given a prescription for occupational, physical or speech therapy, please set up these appointments before your procedure. If you would like to schedule therapy at a [facility] facility, please call [phone] ([phone]). Do not use lotions, creams, powders, perfume, make up, cologne or after-shaves day of surgery. Remove ALL jewelry including wedding rings, body piercings,hair extensions that contain metal, nail citizen of [place], make-up, and contact lens. You may brush your teeth the morning of surgery, but do not swallow the water. Wear your dentures and partial plates to the hospital (no adhesive). Shower the night the before. If applicable, use the CHG (chlorhexidine gluconate) soap or wipes What should I bring to the hospital? If you received a green plastic bracelet, bring it with you the day of surgery and your nurse will put it on you. Eyeglass or contact lens case If you will be spending the night, please bring personal care items and leave them in the car until you are taken to your room after surgery. Leave ALL valuables at home. If any of these instructions conflict with those you received from the surgeon, please seek clarification from your surgeon's office. DEEP BREATHING EXERCISES This exercise helps promote good air exchange and helps to prevent pneumonia after surgery. Breathe in slowly and deeply through the nose. Hold your breath for a few seconds and then exhale slowly through the mouth. Repeat this three times and then cough.Coughing helps to clear your lungs. If you have had a surgery with an incision into your abdomen or chest, press gently against your incision with a pillow or a folded blanket when you cough. Please be aware - it may not be kim to cough following some types of surgeries involving the eyes, ears, sinuses and throat. Always follow your doctor's instructions. LEG EXERCISE These exercises help promote good circulation and help to prevent blood clots after surgery. Point your toes to the ceiling and then point them to the wall. Do this slowly about 15-20 times. You may also move your feet in circles. Do the exercise that is most comfortable for you. If you have had surgery involving your shoulder or arm, we recommend you move your fingers. PRACTICING We ask that you begin practicing these exercises before your surgery. After surgery try to do both exercises at least every 2 hours during the day and early evening. SURGICAL SITE INFECTION PREVENTION What is a Surgical Site Infection? Infection can happen to the area of the body where surgery is done. This is called a surgical site infection (SSI). A SSI does not happen very often. Can SSIs be treated? Antibiotics are used to treat SSI. Some patients may need another surgery to treat the infection. The doctor will discuss treatment options with you. What are some of the things that hospitals are doing to prevent SSIs? Soap and water or alcohol hand rub are used before and after caring for each patient. Special soap is used to clean surgery workers hands and arms just before the surgery. Masks, gowns, gloves and hair covers are worn during the surgery to keep the area clean. Hair in the surgery area may be removed with clippers (not razors). A special soap that kills germs is used to clean the skin at the surgery site. Antibiotics may be given before the surgery starts. What can you do to prevent SSIs? Before surgery: You may be asked to shower or bathe with a special soap that kills germs the night before and the day of surgery. Use the soap as you were told. If you smoke, stop or cut down. Ask your doctor about ways to quit. Do not shave near where you will have surgery. Shaving can irritate the skin and make it easier to get and infection. After surgery: Be sure that the doctors and nurses clean their hands before and after touching you. Be sure your family and friends clean their hands before and after visiting you. Do not be afraid to remind them. * Care for your wound at home as told by your doctor or nurse * Call your doctor right away if you have fever, redness, increased pain, or drainage at the surgery site. Further questions? Contact the doctor, nurse or the Infection Prevention and Control department if you have any questions. PATIENT RIGHTS AND RESPONSIBILITIES As a patient at [facility], you have the right to: Receive medical care and be informed of who is taking care of you Be treated with dignity and respect Have a family member/high school admissions representative of choice and your physician notified of your admission Receive information and actively participate in decisions about your care and treatment Refuse care, treatment and services Decide who may provide your support and speak for you Access alevism and spiritual services Participate in ethical issues and questions about your care Receive private and confidential care Have appropriate assessment and management of your pain Know guest visitation restrictions or limitations Have an advance directive Access protective services Consent or refuse to participate in research studies or production or recordings, films or other images Have resolution of your complaints Receive information of hospital charges and payment methods Patient/patient high school admissions representative responsibilities are to: Provide information about health status to facilitate care, treatment and services Follow the treatment, plan, keep appointments and speak up when you do not understand the plan Respect the rights of other patients and healthcare personnel Follow organizational rules and regulations that support quality care and a safe environment Fulfill financial obligations as promptly as possible documented in this encounter [facility] 12-04-2023 Hospital Discharge instructions Patient Education [...] urethra. Follow these instructions at home: Take [id number] and prescription medicines only as told by [...] provider. Document Revised: 04/06/2022 Document Reviewed: 04/06/2022 [employer] Patient Education 2022 Yunno Follow Up Care 08/29/2023 09:19:56 With:Jim RUTHERFORD MD, URL Address: [facility] [address] , [place] [address] [phone] When:Within 1 Year(s) Comments:with PSA With:Jim RUTHERFORD MD, URL Address: [facility] [address] , [place] [address]- [phone] When: Unknown [facility] 12-14-2022 Note OPERATIVE NOTE OPERATION DATE: 12/14/2022 [...] good condition. CC: Asha Blandon M.D. [facility] Evaluation + Plan note No data available for this section General Surgery [place] Evaluation + Plan note Future Appointments Appointment Date:10/13/2023 01:00:00 PM Scheduled Provider:Mary Ellen Dela Cruz Location:[facility] Appointment Type[facility] Evaluation + Plan note Future Appointments Appointment Date:12/09/2024 08:45:00 AM Scheduled Provider:Jim RUTHERFORD MD Location:[facility] Appointment Type:URO Office Visit Diagnostic Tests PendingPSA Total 12/04/23 [facility] Evaluation + Plan note Future Appointments Appointment Date:12/09/2024 08:45:00 AM Scheduled Provider:Jim RUTHERFORD MD Location:[facility] Appointment Type:URO Office Visit [facility] Evaluation + Plan note Future Appointments Appointment Date:11/27/2025 09:30:00 AM Scheduled Provider: Location:[facility] Appointment Type:URO Nurse Visit Appointment Date:12/04/2025 09:40:00 AM Scheduled Provider:JONNIE ESTRELLA PA-C Location:[facility] Appointment Type:URO Office Visit [facility] Evaluation note Diagnosis Onset Date BPH (benign prostatic hyperplasia) acute CAD (coronary artery disease) acute CKD (chronic kidney disease) stage 3, GFR 30-59 ml/min acute Hyperlipidemia acute [id number] acute Pancreatic cyst acute Secondary hyperparathyroidism acute Thrombocytopenia acute [facility] Work Phone: Evaluation note* Diagnosis Onset Date Resolution Status BPH (benign prostatic hyperplasia) acute CAD (coronary artery disease) acute CKD (chronic kidney disease) stage 3, GFR 30-59 ml/min acute Hyperlipidemia acute [id number] acute Pancreatic cyst acute Secondary hyperparathyroidism acute Thrombocytopenia acute BPH (benign prostatic hyperplasia) acute CAD (coronary artery disease) acute CKD (chronic kidney disease) stage 3, GFR 30-59 ml/min acute Hyperlipidemia acute [id number] acute Pancreatic cyst acute Secondary hyperparathyroidism acute Thrombocytopenia acute [facility] Work Phone: Evaluation note* Diagnosis Onset Date Resolution Status Admit Date BPH (benign prostatic hyperplasia) a cute November 28, 2024 9:27am CAD (coronary artery disease) acute November 28, 2024 9:27am CKD (chronic kidney disease) stage 3, GFR 30-59 ml/min acute November 9:27am Hyperlipidemia acute November 032024 9:27am Hypertensive chronic kidney disease with stage 1 through stage 4 chronic ki acute November 28, 9:27am Pancreatic cyst acute November 28, 2024 9:27am Secondary hyperparathyroidism acute November 28, 2024 9:27am Thrombocytopenia acute November 28, 2024 9:27am [facility] Work Phone: Hospital Discharge instructions No data available for this section General Surgery [place] InstructionsNot on filedocumented in this encounter [facility] No data available for this section General Surgery [place] Reason for referral (narrative) , EUS Referred by: Connor DHALIWAL, Letty Argueta [facility] Summary Purpose Family History [...] Advance Directives No April 02 0 9:00am Advance Directive Response Recorded Date/ Time Advance Directives No April 02 0 8:00am Chief Complaint and Reason for Visit Chief Complaint Stage 3 kidney disea se Reason for Visit BPH (benign prostati c hyperplasia) CAD (coronary artery disease) CKD (chronic kidney disease) stage 3, GFR 30-59 ml/min Hyperlipidemia [id number] Pancreatic cyst Secondary hyperparathyroidism Thrombocytopenia Chief Complaint Stage 3 kidney disea se RENAL 2 months Reason for Visit BPH (benign prostati c hyperplasia) CAD (coronary artery disease) CKD (chronic kidney disease) stage 3, GFR 30-59 ml/min Hyperlipidemia [id number] Pancreatic cyst Secondary hyperparathyroidism Thrombocytopenia BPH (benign prostatic hyperplasia) CAD (coronary artery disease) CKD (chronic kidney disease) stage 3, GFR 30-59 ml/min Hyperlipidemia [id number] Pancreatic cyst Secondary hyperparathyroidism Thrombocytopenia Chief Complaint Admit Date RENAL 6 MONTH F/U November 28, 2024 9:27am Reason for Visit Admit Date BPH (benign prostatic hyperplasia) Febru pita 2024 9:27am CAD (coronary artery disease) November 032024 9:27am CKD (chronic kidney disease) stage 3, GF R 30-59 ml/min November 28, 2024 9:27am Hyperlipidemia November 28, 2024 9:27am Hypertensive chronic kidney disease with stage 1 through stage 4 chronic ki November 28, 2024 9:27am Pancreatic cyst November 28, 2024 9:27am Secondary hyperparathyroidism November 032024 9:27am Thrombocytopenia November 28, 2024 9:27am Additional Source Comments (unrecognized sect ion and content) No Status Records FoundNo Status Records FoundNo Status Records FoundNo Status Records FoundNo Status Records FoundNo Status Records FoundNo Status Records Found INFORMATION SOURCE (unrecogn ized section and content) DATE CREATED AUTHOR 09/11/2020 [facility] DATE CREATED AUTHOR AUTHOR'S ORGANIZ ATION 11/20/2021 [facility] DATE CREATED AUTHOR AUTHOR'S ORGANIZ ATION 12/21/2022 [facility] DATE CREATED AUTHOR AUTHOR'S ORGANIZ ATION 05/05/2024 [facility] DATE CREATED AUTHOR AUTHOR'S ORGANIZ ATION 12/11/2024 [facility] DATE CREATED AUTHOR AUTHOR'S ORGANIZ ATION 12/22/2024 [facility] Patient Care team informatio n [...] June 13, 2024 End: June 13, 2024 Team Status: Active Member Role Status Dates NON STAFF Primary Care Provider Active Team Status: Active Member Role Status Dates Asha Blandon MD Primary Care Provider Active S tart: November 15, 2024 Cecilia Alford MD Attending Provider Active Start : November 15, 2024 Team Status: Inactive Member Role Status Dates Cecilia Alford MD Attending Provider Active Start : November 28, 2024 End: November 28, 2024 NON STAFF Primary Care Provider Active Start: November 28, 2024 End: November 28, 2024 Goals (unrecognized section and content) Goals [...] BE BASED ON THE PRIMARY CLINICAL RECORDS. [facility] [employer] [facility]. provides no warranty or guarantee of the accuracy or completeness of information in this document.
--- NOTE | 2025-01-01 09:59 | US_ITS ---
The [address] [address] Patient Name: MAXIMINO CLARKE MRN: [id number] date: 1955 Sex: M Assigned Patient Location: Current Patient Location: [place] Accession/Order Number: [id number] Exam Date: 01/01/2025 10:53 Report Date: 01/01/2025 11:19 At the request of: SHERRI GUEVARA MD Procedure: US abdomen limited LIMITED ABDOMINAL ULTRASOUND CLINICAL HISTORY: Elevated liver functions. Lupus, Thrombocytopenia COMPARISON: CT 01/24/2024 The gallbladder is physiologically distended with multiple small echogenic shadowing gallstones. No wall thickening or pericholecystic fluid. No intra- or extrahepatic biliary dilatation is evident. The common duct measures re-4 mm. The liver is normal in echogenicity. No intrahepatic masses are seen. There is appropriate hepatopetal flow within the main portal vein. A cyst is noted at the neck of the pancreas measuring 19 x 12 x 11 mm. This was also seen previously.. Cursory evaluation of the right kidney reveals no hydronephrosis or fluid within Taylor's pouch. A small cyst is visualized at the inferior pole right kidney measuring 13 x 14 x 10 mm. US/US abdomen limited IMPRESSION: CHOLELITHIASIS. PANCREATIC AND RIGHT RENAL CYST, ALSO SEEN PREVIOUSLY. LIMITED ULTRASOUND - left upper quadrant CLINICAL DATA: left upper quadrant pain intermittently for the past year. COMPARISON: CT 01/24/2024 The spleen is normal in size measuring 10.9 x 9.7 x 5.3 cm. Echotexture slightly heterogeneous. There are no splenic masses. Cursory evaluation of left kidney shows no hydronephrosis or perinephric fluid. The kidney measures 10.6 cm in craniocaudal dimension. IMPRESSION: NO SPLENIC ABNORMALITIES. Impression dictated by: Dinora Brink M.D.01/01/2025 11:19 AM Dictation Location: [place] [address] Electronically authenticated by: [id number] Y Date: 01/01/2025 11:19
== END 2025-01-01 09:51 | disposition home or self-care (01) ==
LOC: US 09:50
PROVIDERS: PCP Nurse Practitioner; Visit Provider Internal Medicine Hematology & Oncology
DX: D64.9 Anemia, unspecified (principal); D69.6 Thrombocytopenia, unspecified; D68.62 Lupus anticoagulant syndrome; K86.2 Cyst of pancreas; N28.1 Cyst of kidney, acquired
CPT/HCPCS: 76705

== ENCOUNTER 2025-01-24 12:08 | Outpatient (OUT) | payer MEDICARE, SELFPAY ==
[2025-01-24 12:27] LABS: Basophils Percent Auto 0.7 % (0.2-2.0); Eosinophils Absolute Auto 0.1 10^3/uL (0.0-0.7); Eosinophils Percent Auto 2.3 % (0.9-7.0); Hematocrit 42.6 % (42.0-54.0); Hemoglobin 14.2 g/dL (14.0-18.0); Immature Granulocytes Abs Auto 0.01 10^3/uL (0.00-0.03); Immature Granulocytes Pct Auto 0.2 % (0.0-0.5); Lymphocytes Absolute Auto 1.7 10^3/uL (1.2-3.8); Lymphocytes Percent Auto 28.9 % (20.5-60.0); Mean Corpuscular HGB Conc 33.3 g/dL (29.9-35.2); Mean Corpuscular Hemoglobin 30.9 pg (25.9-34.0); Mean Corpuscular Volume 92.8 fL (80.0-94.0); Mean Platelet Volume 12.2 fL (9.5-13.5); Monocytes Absolute Auto 0.8 10^3/uL (0.3-0.8); Monocytes Percent Auto 13.5 % (1.7-12.0); Neutrophils Absolute Auto 3.3 10^3/uL (1.4-6.5); Neutrophils Percent Auto 54.4 % (43.0-75.0); Platelet Count 95 10^3/uL (150-450); Red Blood Count 4.59 10^6/uL (4.70-6.10); Red Cell Distribution Width 13.3 % (11.0-15.0)
== END 2025-01-24 12:09 | disposition home or self-care (01) ==
LOC: LAB 12:10
PROVIDERS: PCP Nurse Practitioner; Visit Provider Internal Medicine Hematology & Oncology
DX: D64.9 Anemia, unspecified (principal); D69.6 Thrombocytopenia, unspecified; D68.62 Lupus anticoagulant syndrome
CPT/HCPCS: 36415; 85025

== ENCOUNTER 2025-02-25 11:04 | Outpatient (OUT) | payer MEDICARE, SELFPAY ==
--- OUTSIDE RECORDS SUMMARY | 2024-12-10 10:15 | XMS_ITS ---
Author Organization The [facility] in [place] Address [address] [place] [address] Care Team Providers Care Oleo Hasher And Renderer Name Role Phone Mary Ellen Hebert Primary Care Provider Hawa Mtz Unavailable [phone] REASON FOR VISIT MD Sahni PT Hem Encounters Encounter Location Date Provider Diagnosis [facility] [address] [place] [phone] 12/10/2024 Hawa Jenkins Plan Of Treatment Next Appt Details Provider Name:Hawa Jenkins , 03/04/2025 01:30:00 PM, [address] [place] [address], [phone], Provider Name:Gaston Barlow, 10/07/2025 09:00:00 AM, [address] [place] [address], [phone], Progress Notes * Timmy CLARKE EDOB:[birth year] (70 yo M)Acc No.[id number]:12/10/2024 UNLOCKED PROGRESS NOTE Progress Notes Patient: Timmy LINO Provider: Carlin Jenkins M.D. :1955 A ge:69 Y S ex:Male Date:12/10/2024 Address:[address] [place] [phone] Pcp:AIDA Cuevas Subjective: * Chief Complaints: * 1 . New PT Hem. * Medical History: Objective: * Vitals: Assessment: Plan: * Treatment: * * Electronic signature of Karly Jenkins MD, [id number] on 02/25/2025 at 11:09 AM EDT Sign off status: Pending Visit Status: C ANC (Cancelled) * Provider: Carlin Jenkins M.D. Date: 0 12/10/2024 Generated for Lindsey razo/Rocio/eTransmitting on: 0 02/25/2025 11:09 AM EDT
--- OUTSIDE RECORDS SUMMARY | 2024-12-24 07:15 | XMS_ITS ---
Author Organization The [facility] in [place] Address [address] [place] [address] Care Team Providers Care Sports Betting Manager Name Role Phone Mary Ellen Hebert Primary Care Provider Hawa Mtz Unavailable [phone] REASON FOR VISIT MD Encounters Encounter Location Date Provider Diagnosis [facility] [address] [place] [phone] 12/24/2024 Hawa Jenkins Plan Of Treatment Next Appt Details Provider Name:Hawa Jenkins , 03/04/2025 01:30:00 PM, [address] [place] [address], [phone], Provider Name:Gastonhannah Barlow, 10/07/2025 09:00:00 AM, [address] [place] [address], [phone], Progress Notes * Timmy CLARKE EDOB:[birth year] (70 yo M)Acc No.[id number]:12/24/2024 UNLOCKED PROGRESS NOTE Progress Notes Patient: Timmy LINO Provider: Carlin Jenkins M.D. :1955 A ge:69 Y S ex:Male Date:12/24/2024 Address:[address] [place] [phone] Pcp:AIDA Cuevas Subjective: * Chief Complaints: * 1 . MD. * Medical History: Objective: * Vitals: Assessment: Plan: * Treatment: * * Electronic signature of Karly Jenkins MD, [id number] on 02/25/2025 at 11:09 AM EDT Sign off status: Pending Visit Status: C ONFSMS (Voice) * Provider: Carlin Jenkins M.D. Date: 0 12/24/2024 Generated for Lindsey razo/Rocio/eTransmitting on: 0 02/25/2025 11:09 AM EDT
--- OUTSIDE RECORDS SUMMARY | 2025-02-25 11:09 | XMS_ITS | Encounter Summary ---
Author Organization [employer] Address [id number] [address] [place] [address] Care Team Providers Care Quickbooks Bookkeeper Name Role Phone Unavailable Primary Care Provider Unavailabl e Encounter Details Date Type Department Care Team (Late st Contact Info) Description 05/09/2024 Orders Only [facility] In [address] [place] [id number] Surinder El MD [address] [facility] [address] [place] [address] Social History Tobacco Use Types Packs/Day Years Used Date Smoking Tobacco: Former Cigarettes Cigars Comments:Not currently used to cigar Alcohol Use Standard Drinks/Week Comments Not Currently 0 (1 standard drink = 0.6 oz pur e alcohol) Childcare Answer Date Recorded Childcare Unknown 09/02/2020 Employment Answer Date Recorded Employment Unknown 09/02/2020 Hunger Screening Answer Date Recorded Within the past 12 months we worried whether our food would run out before we got money to buy more. Never True 04/24/2024 Within the past 12 months th e food we bought just didn't last and we didn't have money to get more. Never True 04/24/2024 Purpose - Life Answer Date Recorded Purpose and direction in life Unknown Sex and Gender Information Value Date Recorded Sex Assigned at Not on file Legal Sex Male 11:42 AM EDT Gender Identity Not on file Sexual Orientation Not on file documented as of this encounter Plan of Treatment Not on file documented as of this encounter Visit Diagnoses Not on filedocumented in this encounter
--- OUTSIDE RECORDS SUMMARY | 2025-02-25 11:10 | XMS_ITS | Clinical Summary ---
Author Organization [employer] [facility] Address [id number] [address] [place] [address] Care Team Providers Care Seam Finisher Name Role Phone Unavailable Primary Care Provider Unavailabl e Allergies No known active allergies Medications carvediloL (COREG) 12.5 mg tablet Take 1 tablet (12.5 mg total) by mouth in the morning and 1 tablet (12.5 mg total) in the evening. Take with meals. 02/08/2024 Active esomeprazole (NexIUM) 40 mg capsule Take 1 capsule (40 mg total) by mouth every morning before breakfast. 04/01/2024 Active hydroCHLOROthia zide (HYDRODIURIL) 25 mg tablet Take 1 tablet (25 mg total) by mouth daily. 04/14/2024 Active losartan (COZAAR) 25 mg tablet Take 1 tablet (25 mg total) by mouth in the morning. 04/14/2024 Active rosuvastatin (CRESTOR) 20 mg tablet Take 1 tablet (20 mg total) by mouth in the morning. 03/31/2024 Active aspirin 81 mg chewable tablet Chew 1 tablet (81 mg total) and swallow in the morning. Active Social History Tobacco Use Types Packs/Day Years Used Date Smoking Tobacco: Former Cigarettes Cigars Tobacco Cessation:Counseling Given: Not Answered Comments:Not currently used to cigar Alcohol Use [...] on file Sexual Orientation Not on file Last Filed Vital Signs Vital Sign Reading Time Taken Comments Blood Pressure 124/91 04/30/2024 12:55 PM EDT Pulse 61 04/30/2024 12:55 PM EDT Temperature 36.3 C (97.3 F) 04/30/2024 12:55 PM EDT Respiratory Rate 14 04/30/2024 12:55 PM EDT Oxygen Saturation 94% 04/30/2024 12:55 PM EDT Inhaled Oxygen Concentration - - Weight 88.9 kg (196 lb) 04/30/2024 10:08 AM EDT Height 172.7 cm (5' 8 ) 04/30/2024 10:08 AM EDT Body Mass Index 29.8 04/30/2024 10:08 AM EDT Plan of Treatment Health Maintenance Due Date Last Done Comments Depression Screening 1969 Adult BMI Follow Up Plan 1975 DTaP,Tdap and Td Vaccines (1 - Tdap) 01/19/1976 Zoster (Shingles) Vaccine (1 of 2) 2007 Abdominal Aortic Aneurysm (A AA) Screen 2022 Fall Risk Screening 2022 COVID-19 Vaccine (4 - 2023-2 5 season) 2024 09/21/2021, 01/05/2021, 12/14/2020 Adult BMI Screening 04/30/2025 04/30/2024 Tobacco Screening 04/30/2025 04/30/2024 Influenza Vaccine 06/02/2025 07/05/2023, , 07/06/2021, Additional history exists Medical Devices Not on file Insurance [employer] MEDICARE
--- OUTSIDE RECORDS SUMMARY | 2025-02-25 11:10 | XMS_ITS | Referral Summary ---
Author Organization [facility] Address [address] [place] [address] Care Team Providers Care Model Photographers' Name Role Phone EmileeMary Ellen gibson UTILITY BILL COLLECTOR-C Primary Care Provider [phone] Encounters Date Type Department Care Team Description 02/13/2025 Refill [facility] [address] [place] [address] Lyric Tejeda MA Benign hypertensive heart disease without congestive heart failure from Last 3 Months Allergies No known active allergies Medications Medication Sig Dispensed Refills Start Date End Date Status aspirin 81 mg EC tablet Take 1 tablet by mouth in the morning. Active cholecalciferol (Vitamin D-3) 25 MCG (1000 UT) capsule Take 1 capsule every day by oral route. Active albuterol 90 mcg/actuation inhaler INL 2 PFS PO Q 6 H PRN FOR SHORTNESS OF BREATH OR WHEEZING Active losartan (Cozaar) 25 mg tabletIndications: Benign hypertensive heart disease without congestive heart failure Take 1 tablet (25 mg) by mouth in the morning. 30 tablet 11 12/08/2023 Active potassium chloride CR (K-Tab) 20 mEq ER tabletIndications: Benign hypertensive heart disease without congestive heart failure Take 1 tablet (20 mEq) by mouth in the morning. Do not crush, chew, or split. 5 tablet 05/27/2024 Active Additional Information Patient not taking.Reported on 11/13/2024 carvedilol (Coreg) 6.25 mg tabletIndications: Essential hypertension Take 1.5 tablets twice a day 270 tablet 3 05/27/2024 Active Additional Information Patient taking differently: Takes 1 tablet in the AM, takes 1.5 tablets in the PM, Reported on 11/13/2024 rosuvastatin (Crestor) 20 mg tabletIndications: Coronary artery disease due to lipid rich plaque TAKE 1 TABLET(20 MG) BY MOUTH IN THE MORNING 90 tablet 3 10/03/2024 Active Additional Information Patient taking differently: 20 mg oral Nightly, Reported on 11/13/2024 esomeprazole (NexIUM) [address] capsule Take 40 mg by mouth in the morning. Active alfuzosin (Uroxatral) 10 mg 24 hr tablet Take 10 mg by mouth in the morning. Do not crush, chew, or split. Active losartan (Cozaar) 50 mg tabletIndications: Benign hypertensive heart disease without congestive heart failure Take 1 tablet (50 mg) by mouth once daily as directed. 90 tablet 3 12/04/2024 6 Active hydroCHLOROthiazid e (HYDRODiuril) 25 mg tabletIndications: Benign hypertensive heart disease without congestive heart failure Take 1 tablet (25 mg) by mouth in the morning. 90 tablet 3 02/13/2025 6 Active hydroCHLOROthiazid e (HYDRODiuril) 25 mg tabletIndications: Benign hypertensive heart disease without congestive heart failure Take 1 tablet (25 mg) by mouth in the morning. 30 tablet 11 12/08/2023 5 Discontinue d(Reorder) Active Problems Problem Noted Date Diagnosed Date Sinusitis 11/13/2024 Abdominal pain 05/27/2024 Fluid level behind tympanic membrane of both ear s 05/27/2024 CKD (chronic kidney disease) stage 3, GFR 30-59 ml/min 05/27/2024 Pancreatic cyst 05/27/2024 Secondary hyperparathyroidism 05/27/2024 Thrombocytopenia 05/27/2024 Benign prostatic hyperplasia with urinary obstru ction 10/06/2023 10/06/2023 BMI 31.0-31.9,adult 10/06/2023 10/06/2023 Chronic obstructive pulmonary disease 10/06/2023 10/06/2023 Coronary artery disease 10/06/2023 10/06/19 24 Cough 10/06/2023 10/06/2023 Elevated PSA 10/06/2023 10/06/2023 Chronic fatigue syndrome 10/06/2023 024 Gallstones 10/06/2023 10/06/2023 Gross hematuria 10/06/2023 10/06/2023 Headache 10/06/2023 10/06/2023 Hematochezia 10/06/2023 10/06/2023 Hypercholesterolemia 10/06/2023 10/06/2023 senior living (current) use of inhaled steroids 01/202410/06/2023 Interstitial pulmonary fibrosis 10/06/2023 10/06/2023 Low testosterone 10/06/2023 10/06/2023 Nocturia 10/06/2023 10/06/2023 Rectal bleeding 10/06/2023 10/06/2023 Right otitis media 10/06/2023 10/06/2023 Sore throat 10/06/2023 10/06/2023 Urinary urgency 10/06/2023 10/06/2023 Weak urinary stream 10/06/2023 10/06/2023 Prostate cancer screening 10/06/20232023 Allergic rhinitis 04/02/2012 10/06/2023 Disorder of lung 04/02/2012 10/06/2023 Essential hypertension 04/02/2012 Legionnaire's disease 04/02/2012 10/06/2023 Malaise and fatigue 04/02/2012 10/06/2023 Right bundle branch block 04/02/20122023 Obstructive sleep apnea syndrome 12/25/2007 10/06/2023 Overview (10/06/2023): a. (AHI=26.5 events/hour; Robbie SaO2=86%; Qeojxj=903 lbs; BMI=28.94 kg/m2, Split-Night Study on 02/15/2011 at [facility]), b. (AHI=27.73 events/hour; Robbie SaO2=80.0%; Wbtdza=896 lbs; BMI=29.09 kg/m2, on 12/25/2007 at [facility]) Social History Tobacco Use Types Packs/Day Years Used Date Smoking Tobacco: Never Smokeless Tobacco: Never Tobacco Cessation:Counseling Given: Not Answered Alcohol Use Standard Drinks/Week Comments Yes 0 (1 standard drink = 0.6 oz pur e alcohol) [facility] Answer Date Rec orded Fear of Current or Ex-Partner Not on file Emotionally Abused Not on file 11/23/2023 Physically Abused Not on file 11/23/2023 Sexually Abused Not on file 11/23/2023 Physically or Sexually Abused Not on file Sex and Gender Information Value Date Recorded Sex Assigned at Not on file Gender Identity Not on file Sexual Orientation Not on file Last Filed Vital Signs Vital Sign Reading Time Taken Comments Blood Pressure 148/104 11/13/2024 10:03 AM EST Pulse 60 11/13/2024 10:03 AM EST Temperature - - Respiratory Rate 11 12/08/2023 9:51 AM EST Oxygen Saturation 96% 11/13/2024 10:03 AM EST Inhaled Oxygen Concentration - - Weight 93 kg (205 lb) 11/13/2024 10:03 AM EST Height 172.7 cm (5' 8 ) 11/13/2024 10:03 AM EST Body Mass Index 31.17 11/13/2024 10:03 AM EST Plan of Treatment Not on file Care Teams Model Photographers' Relationship Specialty Start Date End Date Mary Ellen Heebrt FNP-C [address] [place] [address] PCP - General Nurse Practitioner 05/27/24
--- OUTSIDE RECORDS SUMMARY | 2025-02-25 11:10 | XMS_ITS | Clinical Summary ---
Author Organization [facility] Address [address] [place] [address] Care Team Providers Care Home Hospice Rn Name Role Phone EmileeMary Ellen gibson HAND ROLLER ENGRAVER-C Primary Care Provider [phone] Allergies No known active allergies Medications Medication [...] daily as directed. 90 tablet 3 12/04/2024 Active hydroCHLOROthiazid e (HYDRODiuril) 25 mg tabletIndications: Benign hypertensive heart disease without congestive heart failure Take 1 tablet (25 mg) by mouth in the morning. 90 tablet 3 02/13/2025 Active hydroCHLOROthiazid e (HYDRODiuril) 25 mg tabletIndications: [...] 10/06/2023 Hematochezia 10/06/2023 10/06/2023 Hypercholesterolemia 10/06/2023 10/06/2023 residential (current) use of inhaled steroids 01/202410/06/2023 Interstitial [...] Overview (10/06/2023): a. (AHI=26.5 events/hour; Robbie SaO2=86%; Yybyzi=184 lbs; BMI=28.94 kg/m2, Split-Night Study on 02/15/2011 at [facility]), b. (AHI=27.73 events/hour; Robbie SaO2=80.0%; Pjlnaj=196 lbs; BMI=29.09 kg/m2, on 12/25/2007 at [facility]) Encounters Date Type Department Care Team Description 02/13/2025 Refill [facility] [place] [address] [place] [address] Lyric Tejeda MA Benign hypertensive heart disease without congestive heart failure from Last 3 Months Family History Medical History Relation Name Comments Cancer Mother Hypertension Mother Relation Name Status Comments Mother Social History Tobacco Use Types Packs/Day Years Used Date Smoking Tobacco: Never Smokeless Tobacco: Never Tobacco Cessation:Counseling Given: Not Answered Alcohol Use Standard Drinks/Week Comments Yes 0 (1 standard drink = 0.6 oz pur e alcohol) [facility] [place] Safety & Environment Answer Date Rec orded [...] 11/13/2024 10:03 AM EST Plan of Treatment Health Maintenance Due Date Last Done Comments CT Colonography 1957 FIT-DNA 1957 FIT 1955 FOBT 1955 Medicare Annual Wellness (AWV) 1955 Sigmoidoscopy 1955 Depression Screening 1969 Adult Tetanus 1979 Zoster Vaccines (1 of 2) 2007 Fall Risk Screening 2022 COVID-19 Vaccine ( season) 2024 07/08/2024, 09/21/2021, 01/05/2021, Additional history exists Colonoscopy 12/14/2032 12/14/2022, 09/11/2013 Colorectal Cancer Screening 12/14/2032 Pneumococcal Vaccine: 65+ Years Completed 07/05/2023, 07/01/2019 Influenza Vaccine Completed 07/08/2024, , 06/09/2022, Additional history exists HIB Vaccines Aged Out No longer eligi ble based on patient's age to complete this topic HPV Vaccines Aged Out No longer eligi ble based on patient's age to complete this topic IPV Vaccines Aged Out No longer eligi ble based on patient's age to complete this topic Meningococcal B Vaccine Aged Out No l onger eligible based on patient's age to complete this topic Meningococcal Vaccine Aged Out No master hany eligible based on patient's age to complete this topic Rotavirus Vaccines Aged Out No longer eligible based on patient's age to complete this topic Care Teams Home Hospice Rn Relationship Specialty Start Date End Date Mary Ellen Hebert FNP-C [address] [place] [address] PCP - General Nurse Practitioner 05/27/24
--- OUTSIDE RECORDS SUMMARY | 2025-02-25 11:10 | XMS_ITS | Encounter Summary ---
Author Organization [facility] Address [address] [place] [address] Care Team Providers Care Pipe Smoking Machine Operator Name Role Phone Mary Ellen Hebert Primary Care Provider [phone] Reason for Visit * Reason Onset Date Comments Med Refill 02/13/2025 Encounter Details Date Type Department Care Team (Late st Contact Info) Description 02/13/2025 Refill [facility] [address] [place] [address] Lyric Tejeda MA Benign hypertensive heart disease without congestive heart failure Social History Tobacco Use Types Packs/Day Years Used Date Smoking Tobacco: Never Smokeless Tobacco: Never Alcohol Use Standard Drinks/Week Comments Yes 0 (1 standard drink = 0.6 oz pur e alcohol) [facility] Safety & Environment Answer Date [...] documented as of this encounter Visit Diagnoses Diagnosis Benign hypertensive heart disease without congestive heart failure Benign hypertensive heart disease without heart failure documented in this encounter Care Teams Pipe Smoking Machine Operator Relationship Specialty Start Date End Date Mary Ellen Hebert FNP-C [address] [place] [address] PCP - General Nurse Practitioner 05/27/24 documented as of this encounter
--- OUTSIDE RECORDS SUMMARY | 2025-02-25 11:10 | XMS_ITS | Patient Health Record ---
Author Organization [facility] in [place] Address [address] [place] [address] Care Team Providers Care [facility] Author Name Role Phone Mary Ellen Hebert Primary Care Provider Unavail able Sherri Jenkins Unavailable [phone] Rubi Ridley Unavailable [phone] Allergies No Known Allergies Results Component Value Reference Range Notes HEMOGLOBIN Reviewed date:08/21/2024 07:25:47 AM Interpretation: Performing Lab: Notes/Report: [facility] , Hemoglobin 14.0 14.0-18.0 g/dL Performing Lab: see note ML - [facility] LB RT pulmonary function test Reviewed date:08/21/2024 09:35:44 AM Interpretation: Performing Lab: Notes/Report: Source Facility: [facility]-[address] [place] [address] [place] [address] Respiratory Report Signed Patient: MAXIMINO CLARKE MR#: [id number] : 1955 Acct:[id number] Age/Sex: 69 / M ADM Date: 08/12/24 Loc: CARD Attending Dr: Rubi Ridley D.O. Ordering Physician: Rubi Ridley D.O. Date of Service: 08/12/24 Procedure(s): RT pulmonary function test Accession Number(s): [id number] cc: [facility] Test Date: 2024-08-12 Pat Name: MAXIMINO CLARKE Department: Room: - Gender: Male Animal Health Technician: Alayna Hurtado RRT : 1955 Requested By: Rubi Ridley Order Number: [id number] Reading MD: Rubi Ridley Interpretive Statements Pulmonary function testing was completed according to ATS criteria. Findings were considered accurate and reproducible. Both pre- and post-bronchodilator values utilized for spirometry. Spirometry (based on pre-bronchodilator values): -FEV1/FVC: Reduced @ 69% -FEV1: Normal @ 86% -FVC: Normal @ 94% -PGY54-22%: Reduced @ 53% -There is a partial bronchodilator response in FEV1 FVC which meet >200mL increase but <12% change. Lung volumes by plethysmography: -RV: Normal @ 88% -TLC: Normal @ 85% Diffusion capacity: -DLCO: Very severe reduction @ 33% when corrected for Hb 14g/dL Flow-volume loop: -Mild obstructive pattern Impressions: -Spirometry suggests mild obstruction without a significant bronchodilator response. Normal lung volumes. Very severe diffusion impairment. Overall study is compatible with COPD/emphysema. Clinical correlation required. Electronically Signed On 08-21-2024 9:23:41 EST by Rubi Ridley Dictated By: Rubi Ridley D.O. Signed By: 08/21/2492208/21/24922 DD/ 1308 TD/TT: Stiff Neck Loader: [place] [address] Respiratory Report Signed Patient: EMILIANO CLARKE MR#: [id number] : 1955 Acct:[id number] Age/Sex: 69 / M ADM Date: 08/12/24 Loc: CARD Attending Dr: Rubi Ridley D.O. Ordering Physician: Rubi Ridley D.O. Date of Service: 08/12/24 Procedure(s): RT pulmonary function test Accession Number(s): [id number] cc: [facility] Test Date: 2024-08-12 Pat Name: MAXIMINO JUDITH DAVENPORT Department: 25 Room: - Gender: Male Animal Health Technician: Alayna Hurtado RRT : 1955 Requested By: Rubi Ridley Order Number: [id number] Reading MD: Rubi Samsa Interpretive Statements Pulmonary function testing was completed according to ATS criteria. Findings were considered accurate and reproducible. Both pre- and post-bronchodilator values utilized for spirometry. Spirometry (based on pre-bronchodilator values): -FEV1/FVC: Reduced @ 69% -FEV1: Normal @ 86% -FVC: Normal @ 94% -LZX64-60%: Reduced @ 53% -There is a partial bronchodilator response in FEV1 FVC which meet >200mL increase but <12% change. Lung volumes by plethysmography: -RV: Normal @ 88% -TLC: Normal @ 85% Diffusion capacity: -DLCO: Very severe reduction @ 33% when corrected for Hb 14g/dL Flow-volume loop: -Mild obstructive pattern Impressions: -Spirometry suggests mild obstruction without a significant bronchodilator response. Normal andrea g volumes. Very severe diffusion impairment. Overall study is compatible with COPD/emphysema. Clinical correlation required. Electronically Lola d On 08-21-2024 9:23:41 EST by Rubi Ridley Dictated By: Rubi Ridley D.O. Signed By: 08/21/2492208/21/24922 DD/ 1308 TD/TT: Stiff Neck Loader: CBC AUTO DIFF (Not yet revie wed by provider) Interpretation: Performing Lab: Notes/Report: [facility] , White Blood Count 5.8 4.0-11.0 10 3/uL Red Blood Count 4.73 4.70-6.10 10 6/uL Hemoglobin 14.4 14.0-18.0 g/dL Hematocrit 43.7 42.0-54.0 % Mean Corpuscular Volume 92.4 80.0-94.0 fL Mean Corpuscular Hemoglobin 30.4 25.9-34.0 pg Mean Corpuscular HGB Conc 33.0 29.9-35.2 g/dL Red Cell Distribution Width 13.5 11.0-15.0 % Platelet Count 81 150-450 10 3/uL Mean Platelet Volume 12.2 9.5-13.5 fL Performing Lab: see note ML - [facility] LB CRP (Not yet reviewed by pro vider) Interpretation: Performing Lab: Notes/Report: [facility] , C Reactive Protein <0.50 <=0.50 mg/dL Performing Lab: see note ML - [facility] LB LDH (Not yet reviewed by pro vider) Interpretation: Performing Lab: Notes/Report: [facility] , Lactate Dehydrogenase 159 85-227 U/L Performing Lab: see note ML - [facility] LB Erythrocyte Sedimentation Ra te (Not yet reviewed by provider) Interpretation: Performing Lab: Notes/Report: [facility] , Erythrocyte Sedimentation Rate 14 <=20 mm/hr Performing Lab: see note - [facility] LB TERI and PE, Serum (Not yet r eviewed by provider) Interpretation: Performing Lab: Notes/Report: [facility] , Immunoglobulin G, Qn, Serum 6102 622-5088 mg/dL Immunoglobulin A, Qn, Serum 308 61-437 mg/dL Immunoglobulin M, Qn, Serum 280 20-172 mg/dL Protein, Total 7.0 6.0-8.5 g/dL Albumin 3.5 2.9-4.4 g/dL Qseti-7-Qknuhxua 0.2 0.0-0.4 g/dL Nunmh-1-Yzwwirsr 0.7 0.4-1.0 g/dL Beta Globulin 1.1 0.7-1.3 g/dL Gamma Globulin 1.5 0.4-1.8 g/dL M-Elton Not Observed Not Observed g/dL Globulin, Total 3.5 2.2-3.9 g/dL A/G Ratio 1.1 0.7-1.7 Immunofixation Result, Serum Comment . No monoclonality detected. Please note: Comment . Protein electrophoresis scan will follow via computer, mail, or field support technician delivery. Performed at: [address] [id number] Financial Services Agent: Aryan Craft PhD, Phone: [phone] Performing Lab: see note - [facility] LB Lupus Anticoagulant Reflex ( Not yet reviewed by provider) Interpretation: Performing Lab: Notes/Report: [facility] , PTT-LA 40.2 0.0-43.5 sec dRVVT 59.9 0.0-47.0 sec dRVVT Mix 42.0 0.0-40.4 sec dRVVT Confirm 1.4 0.8-1.2 ratio Lupus Reflex Interpretation Comment: . Results are consistent with the presence of a lupus anticoagulant. As only persistent lupus anticoagulant (LA) positivity meets laboratory diagnostic criteria for antiphospholipid syndrome, repeat testing in 12 or more weeks is recommended, ideally in the absence of anticoagulant therapy. Important Note: The results of LA testing are not valid for patients receiving heparin, direct Xa inhibitor (e.g., rivaroxaban, apixaban) or direct thrombin inhibitor (e.g., dabigatran) therapy. These drugs may cause false positive LA results but will not interfere with anticardiolipin and beta-2 glycoprotein 1 antibody testing. Performed at: [address] [id number] Financial Services Agent: Yara Pena MD, Phone: [phone] Performing Lab: see note - [facility] LB Manual Differential (Not yet reviewed by provider) Interpretation: Performing Lab: Notes/Report: [facility] , Segmented Neutrophils % Manual 54.0 43.0-75.0 Lymphocytes Percent Manual 21.0 20.5-60.0 % Monocytes Percent Manual 14.0 1.7-12.0 % Eosinophils Percent Manual 1.0 0.9-7.0 % Basophils Percent Manual 0.0 0.2-2.0 % Atypical Lymphocytes % Manual 10.0 Segmented Neut Absolute Manual 3.13 1.4-6.5 10 3/uL Lymphocytes Absolute Manual 1.21 1.20-3.80 10 3/uL Monocytes Absolute Manual 0.81 0.30-0.80 10 3/uL Eosinophils Absolute Manual 0.05 0.00-0.70 10 3/uL Basophils Abs Manual 0.00 0.00-0.10 1 0 3/uL Atypical Lymphocytes Abs Man 0.58 Platelet Morphology Comment NO PLT CLUMPS SEEN Performing Lab: see note - [facility] LB CT Chest High Resolution Reviewed date:08/15/2024 08:39:45 AM Interpretation: Performing Lab: Notes/Report: CT chest high res Reviewed date:08/21/2024 07:19:55 AM Interpretation: Performing Lab: Notes/Report: Source Facility: [facility]-[address] [place] [address] [place] [address] CT Scan Report Signed Patient: MAXIMINO CLARKE MR#: [id number] : 1955 Acct:[id number] Age/Sex: 69 / M ADM Date: 08/12/24 Loc: CARD Attending Dr: Rubi Ridley D.O. Ordering Physician: Rubi Ridley D.O. Date of Service: 08/12/24 Procedure(s): CT chest high res Accession Number(s): [id number] cc: MARY ELLEN WAGNER [place] [address] Patient Name: MAXIMINO CLARKE MRN: [facility]:[id number] date: 1955 Sex: M Assigned Patient Location: CARD Current Patient Location: Accession/Order Number: [id number] Exam Date: 08/12/2024 14:29 Report Date: 08/15/2024 05:00 At the request of: RUBI RIDLEY Procedure: CT chest high res EXAMINATION: CT chest high res HISTORY: Centrilobular Emphysema COMPARISON: CTA chest 05/07/2024, CT CHEST HIGH RESOLUTION 08/10/2023 TECHNIQUE: Axial images were obtained at 10 mm intervals during inspiration and expiration in the supine and prone positions. No IV contrast given. Dose reduction techniques were achieved by using automated exposure control and/or adjustment of mA and/or kV according to patient size and/or use of iterative reconstruction technique. FINDINGS: LUNGS: Moderate-marked emphysematous changes bilaterally. Mild bronchiectasis within lung bases. No acute infiltrates, air trapping, or significant peripheral fibrosis. PLEURA: No mass, effusion, or pneumothorax. KRISTEN: No mass or adenopathy. MEDIASTINUM: No mass or adenopathy. HEART: No significant enlargement or pericardial effusion.. Coronary arteries: Mild AORTA: No aneurysm.. CHEST WALL: No mass or axillary adenopathy LIMITED ABDOMEN: Small hypodensities within right hepatic lobe favoring cysts. Numerous 1 cm stones within gallbladder. Limited images of the upper abdomen. OTHER: Negative. CT/CT chest high res IMPRESSION: 1. Moderate-marked emphysematous changes and mild bronchiectasis. No appreciable change compared to prior study. 2. Cholelithiasis. Electronically authenticated by: DOMINICK FLETCHER Date: 08/15/2024 05:00 Dictated By: Dominick Fletcher M.D. Signed By: 08/15/24502 DD/ 050 TD/TT: Stiff Neck Loader: [place] [address] CT Scan Report Signed Patient: EMILIANO CLARKE MR#: [id number] : 1955 Acct:[id number] Age/Sex: 69 / M ADM Date: 08/12/24 Loc: CARD Attending Dr: Rubi Ridley D.O. Ordering Physician: Rubi Ridley D.O. Date of Service: 08/12/24 Procedure(s): CT [facility] high res Accession Number(s): [id number] cc: MARY ELLEN WAGNER [address] [address] Patient Name: MAXIMINO CLARKE MRN: [id number] date: 1955 Sex: M Assigned Patient Location: CARD Current Patient Location: Accession/Order Numb er: [id number] Exam Date: 14:29 Report Date: 08/15/2024 05:00 At the request of: RUBI RIDLEY Procedure: CT chest high res EXAMINATION: CT ches t high res HISTORY: Centrilobul ar Emphysema COMPARISON: CTA ches t 05/07/2024, CT CHEST HIGH RESOLUTION 08/10/2023 TECHNIQUE: Axial [place] ges were obtained at 10 mm intervals during inspiration and expiration in the supine and prone positions. No IV contrast given. Dose reduction techniques were achieved by using automated exposure control and/or adjustment of mA and /or kV according to patient size and/or use of iterative reconstruction technique. FINDINGS: LUNGS: Moderate-beronica ed emphysematous changes bilaterally. Mild bronchiectasis within lung bases. N o acute infiltrates, air trapping, or significant peripheral fibrosis. PLEURA: No mass, effusion, or pneumothorax. KRISTEN: No mass or adenopathy. MEDIASTINUM: No mass or adenopathy. HEART: No significan t enlargement or pericardial effusion.. Coronary arteries: Mild AORTA: No aneurysm.. CHEST WALL: No mass or axillary adenopathy LIMITED ABDOMEN: Sma ll hypodensities within right hepatic lobe favoring cysts. Numerous 1 cm stones within gallbladder. Limited images of the upper abdomen. OTHER: Negative. CT/CT chest high res IMPRESSION: 1. Moderate-marked emphysematous changes and mild bronchiectasis. No appreciable change compared to prior study. 2. Cholelithiasis. Electronically authenticated by: DOMINICK FLETCHER Date: 08/15/2024 05:00 Dictated By: Dominick Fletcher M.D. Signed By: 08/15/24502 DD/ 9 TD/TT: Stiff Neck Loader: CBC AUTO DIFF (Not yet revie wed by provider) Interpretation: Performing Lab: Notes/Report: [facility] , White Blood Count 6.0 4.0-11.0 10 3/uL Red Blood Count 4.59 4.70-6.10 10 6/uL Hemoglobin 14.2 14.0-18.0 g/dL Hematocrit 42.6 42.0-54.0 % Mean Corpuscular Volume 92.8 80.0-94.0 fL Mean Corpuscular Hemoglobin 30.9 25.9-34.0 pg Mean Corpuscular HGB Conc 33.3 29.9-35.2 g/dL Red Cell Distribution Width 13.3 11.0-15.0 % Platelet Count 95 150-450 10 3/uL Mean Platelet Volume 12.2 9.5-13.5 fL Neutrophils Percent Auto 54.4 43.0-75.0 % Lymphocytes Percent Auto 28.9 20.5-60.0 % Monocytes Percent Auto 13.5 1.7-12.0 % Eosinophils Percent Auto 2.3 0.9-7.0 % Basophils Percent Auto 0.7 0.2-2.0 % Immature Granulocytes Pct Auto 0.2 0.0-0.5 % Neutrophils Absolute Auto 3.3 1.4-6.5 10 3/uL Lymphocytes Absolute Auto 1.7 1.2-3.8 10 3/uL Monocytes Absolute Auto 0.8 0.3-0.8 10 3/uL Eosinophils Absolute Auto 0.1 0.0-0.7 10 3/uL Basophils Absolute Auto 0.0 0.0-0.1 10 3/uL Immature Granulocytes Abs Auto 0.01 0.00-0.03 10 3/uL Performing Lab: see note ML - [facility] LB US abdomen limited (Not yet reviewed by provider) Interpretation: Performing Lab: Notes/Report: Source Facility: [place] [address] Ultrasound Report Signed Patient: MAXIMINO CLARKE MR#: [id number] : 1955 Acct:[id number] Age/Sex: 69 / M ADM Date: 01/01/25 Loc: US Attending Dr: Sherri Jenkins M.D. Ordering Physician: Sherri Jenkins M.D. Date of Service: 01/01/25 Procedure(s): US abdomen limited Accession Number(s): [id number] cc: Sherri Jenkins M.D.; MARY ELLEN WAGNER [place] [address] Patient Name: MAXIMINO CLARKE MRN: [id number] date: 1955 Sex: M Assigned Patient Location: US Current Patient Location: US Accession/Order Number: [id number] Exam Date: 01/01/2025 10:53 Report Date: 01/01/2025 11:19 At the request of: SHERRI JENKINS MD Procedure: US abdomen limited LIMITED ABDOMINAL ULTRASOUND CLINICAL HISTORY: Elevated liver functions. Lupus, Thrombocytopenia COMPARISON: CT 01/24/2024 The gallbladder is physiologically distended with multiple small echogenic shadowing gallstones. No wall thickening or pericholecystic fluid. No intra- or extrahepatic biliary dilatation is evident. The common duct measures re-4 mm. The liver is normal in echogenicity. No intrahepatic masses are seen. There is appropriate hepatopetal flow within the main portal vein. A cyst is noted at the neck of the pancreas measuring 19 x 12 x 11 mm. This was also seen previously.. Cursory evaluation of the right kidney reveals no hydronephrosis or fluid within Taylor's pouch. A small cyst is visualized at the inferior pole right kidney measuring 13 x 14 x 10 mm. US/US abdomen limited IMPRESSION: CHOLELITHIASIS. PANCREATIC AND RIGHT RENAL CYST, ALSO SEEN PREVIOUSLY. LIMITED ULTRASOUND - left upper quadrant CLINICAL DATA: left upper quadrant pain intermittently for the past year. COMPARISON: CT 01/24/2024 The spleen is normal in size measuring 10.9 x 9.7 x 5.3 cm. Echotexture slightly heterogeneous. There are no splenic masses. Cursory evaluation of left kidney shows no hydronephrosis or perinephric fluid. The kidney measures 10.6 cm in craniocaudal dimension. IMPRESSION: NO SPLENIC ABNORMALITIES. Impression dictated by: Dinora Brink M.D.01/01/2025 11:19 AM Dictation Location: [place] [address] Electronically authenticated by: [id number] Y Date: 01/01/2025 11:19 Dictated By: Dinora Brink M.D. Signed By: 01/01/25 1122 DD/ 1119 TD/TT: Stiff Neck Loader: [place] [address] Ultrasound Report Signed Patient: EMILIANO CLARKE MR#: [id number] : 1955 Acct:[id number] Age/Sex: 69 / M ADM Date: 01/01/25 Loc: US Attending Dr: Kingston Jenkins M.D. Ordering Physician: Sherri Jenkins M.D. Date of Service: 01/01/25 Procedure(s): US abdomen limited Accession Number(s): [id number] cc: Sherri Jenkins M.D.; MARY ELLEN WAGNER [place] [id number] Patient Name: MAXIMINO CLARKE MRN: [id number] date: 1955 Sex: M Assigned Patient Location: US Current Patient Location: US Accession/Order Numb er: [id number] Exam Date: 01/01/2025 10:53 Report Date: 01/01/2025 11:19 At the request of: SHERRI JENKINS MD Procedure: US abdome n limited LIMITED ABDOMINAL ULTRASOUND CLINICAL HISTORY: Elevated liver functions. Lupus, Thrombocytopenia COMPARISON: CT 01/24/2024 The gallbladder is physiologically distended with multiple small echogenic shadowing gallstones . No wall thickening or pericholecystic fluid. No intra- or extrahepatic bili pita dilatation is evident. The common duct measures re-4 mm. The liver is nor mal in echogenicity. No intrahepatic masses are seen. There is appropriate hepatopetal flow within the main portal vein. A cyst is noted at the neck of the pancreas measuring 19 x 12 x 11 mm. This was also seen previously.. Cursory evaluation of the right kidney reveals no hydronephrosis or fl uid within Taylor's pouch. A small cyst is visualized at the inferior pole right kidney measuring 13 x 14 x 10 mm. US/US abdomen limited IMPRESSION: CHOLELITHIASIS. PANCREATIC AND RIGHT RENAL CYST, ALSO SEEN PREVIOUSLY. LIMITED ULTRASOUND - left upper quadrant CLINICAL DATA: left upper quadrant pain intermittently for the past year. COMPARISON: CT 01/24/2024 The spleen is normal in size measuring 10.9 x 9.7 x 5.3 cm. Echotexture slightly heterogeneo us. There are no splenic masses. Cursory evaluation of left kidney shows no hydronephrosis or perinephric fluid. The kidney measures 10.6 cm in craniocau jose dimension. IMPRESSION: NO SPLENIC ABNORMALITIES. Impression dictated by: Dinora Brink M.D.01/01/2025 11:19 AM Dictation Location: [place] [address] Electronically authenticated by: [id number] Y Date: 01/01/2025 11:19 Dictated By: Dinora Brink M.D. Signed By: 01/01/25 1122 DD/ 1119 TD/TT: Stiff Neck Loader: US right upper quadrant (Not yet reviewed by provider) Interpretation: Performing Lab: Notes/Report: Source Facility: [facility]-[address] [place] [address] [place] [address] Ultrasound Report Signed Patient: MAXIMINO CLARKE MR#: [id number] : 1955 Acct:[id number] Age/Sex: 69 / M ADM Date: 01/01/25 Loc: US Attending Dr: Sherri Jenkins M.D. Ordering Physician: Sherri Jenkins M.D. Date of Service: 01/01/25 Procedure(s): US right upper quadrant Accession Number(s): [id number] cc: Sherri Jenkins M.D.; MARY ELLEN WAGNER [place] [id number] Patient Name: MAXIMINO CLARKE MRN: [id number] date: 1955 Sex: M Assigned Patient Location: US Current Patient Location: US Accession/Order Number: [id number] Exam Date: 01/01/2025 10:53 Report Date: 01/01/2025 11:19 At the request of: SHERRI JENKINS MD Procedure: US abdomen limited LIMITED ABDOMINAL ULTRASOUND CLINICAL HISTORY: Elevated liver functions. Lupus, Thrombocytopenia COMPARISON: CT 01/24/2024 The gallbladder is physiologically distended with multiple small echogenic shadowing gallstones. No wall thickening or pericholecystic fluid. No intra- or extrahepatic biliary dilatation is evident. The common duct measures re-4 mm. The liver is normal in echogenicity. No intrahepatic masses are seen. There is appropriate hepatopetal flow within the main portal vein. A cyst is noted at the neck of the pancreas measuring 19 x 12 x 11 mm. This was also seen previously.. Cursory evaluation of the right kidney reveals no hydronephrosis or fluid within Taylor's pouch. A small cyst is visualized at the inferior pole right kidney measuring 13 x 14 x 10 mm. US/US right upper quadrant IMPRESSION: CHOLELITHIASIS. PANCREATIC AND RIGHT RENAL CYST, ALSO SEEN PREVIOUSLY. LIMITED ULTRASOUND - left upper quadrant CLINICAL DATA: left upper quadrant pain intermittently for the past year. COMPARISON: CT 01/24/2024 The spleen is normal in size measuring 10.9 x 9.7 x 5.3 cm. Echotexture slightly heterogeneous. There are no splenic masses. Cursory evaluation of left kidney shows no hydronephrosis or perinephric fluid. The kidney measures 10.6 cm in craniocaudal dimension. IMPRESSION: NO SPLENIC ABNORMALITIES. Impression dictated by: Dinora Brink M.D.01/01/2025 11:19 AM Dictation Location: [place] [address] Electronically authenticated by: [id number] Y Date: 01/01/2025 11:19 Dictated By: Dinora Brink M.D. Signed By: 01/01/25 1122 DD/ 1119 TD/TT: Stiff Neck Loader: [place] [address] Ultrasound Report Signed Patient: EMILIANO CLARKE MR#: [id number] : 1955 Acct:[id number] Age/Sex: 69 / M ADM Date: 01/01/25 Loc: US Attending Dr: Kingston Jenkins M.D. Ordering Physician: Sherri Jenkins M.D. Date of Service: 01/01/25 Procedure(s): US rig ht upper quadrant Accession Number(s): [id number] cc: Sherri Jenkins M.D.; MARY ELLEN WAGNER [place] [id number] Patient Name: MAXIMINO CLARKE MRN: [id number] date: 1955 Sex: M Assigned Patient Location: US Current Patient Location: US Accession/Order Numb er: [id number] Exam Date: 01/01/2025 10:53 Report Date: 01/01/2025 11:19 At the request of: SHERRI JENKINS MD Procedure: US abdome n limited LIMITED ABDOMINAL ULTRASOUND CLINICAL HISTORY: Elevated liver functions. Lupus, Thrombocytopenia COMPARISON: CT 01/24/2024 The gallbladder is physiologically distended with multiple small echogenic shadowing gallstones . No wall thickening or pericholecystic fluid. No intra- or extrahepatic bili pita dilatation is evident. The common duct measures re-4 mm. The liver is nor mal in echogenicity. No intrahepatic masses are seen. There is appropriate hepatopetal flow within the main portal vein. A cyst is noted at the neck of the pancreas measuring 19 x 12 x 11 mm. This was also seen previously.. Cursory evaluation of the right kidney reveals no hydronephrosis or fl uid within Taylor's pouch. A small cyst is visualized at the inferior pole right kidney measuring 13 x 14 x 10 mm. US/US right upper quadrant IMPRESSION: CHOLELITHIASIS. PANCREATIC AND RIGHT RENAL CYST, ALSO SEEN PREVIOUSLY. LIMITED ULTRASOUND - left upper quadrant CLINICAL DATA: left upper quadrant pain intermittently for the past year. COMPARISON: CT 01/24/2024 The spleen is normal in size measuring 10.9 x 9.7 x 5.3 cm. Echotexture slightly heterogeneo us. There are no splenic masses. Cursory evaluation of left kidney shows no hydronephrosis or perinephric fluid. The kidney measures 10.6 cm in craniocau jose dimension. IMPRESSION: NO SPLENIC ABNORMALITIES. Impression dictated by: Dinora Brink M.D.01/01/2025 11:19 AM Dictation Location: [place] [address] Electronically authenticated by: [id number] Y Date: 01/01/2025 11:19 Dictated By: Dinora Brink M.D. Signed By: 01/01/25 1122 DD/ 1119 TD/TT: Stiff Neck Loader: Vitamin B12 (Not yet reviewe d by provider) Interpretation: Performing Lab: Notes/Report: [facility] , Vitamin B12 [phone] pg/mL Performed at: [facility] [id number] Financial Services Agent: Aryan Craft PhD, Phone: [phone] Performing Lab: see note - [facility] LB MALCOLM w/Reflex (Not yet review ed by provider) Interpretation: Performing Lab: Notes/Report: [facility] , MALCOLM Direct Positive Negative Anti-DNA (DS) Ab Qn 18 0-9 IU/mL Negative <5 Equivocal 5 - 9 Positive >9 HARDBOARD PANEL PRINTER Antibodies <0.2 0.0-0.9 AI Ramirez Antibodies <0.2 0.0-0.9 AI Sjogren's Anti-SS-A <0.2 0.0-0.9 AI Sjogren's Anti-SS-B <0.2 0.0-0.9 AI See below: Comment . Autoantibody Disease Association Condition Frequency - --------- Antinuclear Antibody, SLE, mixed connective Direct (MALCOLM-D) tissue diseases - --------- dsDNA SLE 40 - 60% - --------- Chromatin Drug induced SLE 90% SLE 48 - 97% - --------- SSA (Ro) SLE 25 - 35% Sjogren's Syndrome 40 - 70% Lupus 100% - --------- SSB (La) SLE 10% Sjogren's Syndrome 30% --------- Sm (anti-Ramirez) SLE 15 - 30% --------- HARDBOARD PANEL PRINTER Mixed Connective Tissue Disease 95% (U1 nRNP, SLE 30 - 50% anti-ribonucleoprotein) Polymyositis and/or Dermatomyositis 20% - --------- Scl-70 (antiDNA Scleroderma (diffuse) 20 - 35% topoisomerase) Crest 13% - --------- Shikha-1 Polymyositis and/or Dermatomyositis 20 - 40% - --------- Centromere B Scleroderma - Crest variant 80% Performed at: [facility] [address] [id number] Financial Services Agent: Aryan Craft PhD, Phone: [phone] Performing Lab: see note LC - [facility] Reason For Referral No Information Medications Medication SIG (Take, Route, Frequency, Duration) Notes Start Date End Date Status Albuterol Sulfate (2.5 MG/3ML) 0.083% 3mL Inhalation QID Active Aspirin 81 81 MG 1 tablet Orally Once a day Active Albuterol Sulfate HFA 108 (90 Base) MCG/ACT 2 puffs as needed for SOB Inhalation every 4 hrs for 30 days Active Pravastatin Sodium 20 MG 1 tablet Orally Once a day Active Losartan Potassium-HCTZ 100-12.5 MG 1 tablet Orally Once a day Active Vitamin D 25 MCG (1000 UT) 1 tablet Oral ly Once a day Active Trelegy Ellipta 100-62.5-25 MCG/ACT 1 puff Inhalation Once a day for 90 days Rinse after use Active Immunizations Vaccine Route Administration Date Status Comme nts Flu, Fluad (47386) 65 yrs + High Dose Seasonal (9663-3825) Unknown 07/08/2024 Administered Flu, Flucelvax (22189) 2 yrs +, single-dose syringe (9959-4260) Unknown 07/05/2023 Administered Pneumococcal (Prevnar 20) Unknown 07/05/2023 Administer ed SARS-COV-2 (COVID 19 Pfizer 30mcg/0.3mL) Unknown 12/14/2020 Administered SARS-COV-2 (COVID 19 Pfizer 30mcg/0.3mL) Unknown 01/05/2021 Administered SARS-COV-2 (COVID 19 Pfizer 30mcg/0.3mL) Unknown 09/21/2021 Administered Spikevax Moderna Syringe Pre -Filled 50 mcg/0.5 mL Unknown 07/08/2024 Administered Social History Tobacco Use: Social History Observation Description Date Details (start date - stop date) Never Smoker NA - NA Tobacco Control (Standard) Question Answer Notes Tobacco use: Nonsmoker Problems Problem Type SNOMED Code ICD Code Onset Dates Problem Status W/U Status Risk Notes Problem 196614870 Obesity, unspecified (E66.9) Active confirmed Problem 753301350 Idiopathic sleep related nonobstructive alveolar hypoventilation (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) Active confirmed Problem Centrilobular emphysema (52939031) Centrilobular emphysema (J43.2) Active confirmed Problem 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 Problem 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 Problem Coronary artery disease (98767354) CAD (coronary artery disease) (I25.10) Active confirmed Problem Obstructive sleep apnea syndrome (64835690) BRENDA (obstructive sleep apnea) (G47.33) Active confirmed Problem Bronchiectasis (49290983) Bronchiectasis (J47.9) Active confirmed Problem History of infectious disease (939711156) History of Legionnaire's disease (Z86.19) Active confirmed Problem Body mass index 30.00 to 34.99 (159369070584669) Body mass index [BMI] 31.0-31.9, adult (Z68.31) Active confirmed Vital Signs Heart Rate 53 /min 10/29/2024 RA Activity/Res ting Temperature 96.8 degrees Fahrenheit 10/29/2024 RA A ctivity/Resting Respiratory Rate 18 /min 10/29/2024 RA Activity /Resting Oximetry 95 % 10/29/2024 RA Activity/Res ting Blood pressure diastolic 101 mm Hg 10/29/2024 RA Activity/Resting Height 68 in 10/29/2024 RA Activity/Res ting Blood pressure systolic 158 mm Hg 10/29/2024 RA A ctivity/Resting Weight 205.0 lbs 10/29/2024 RA Activity/Res ting BMI 31.17 kg/m2 10/29/2024 RA Activity/Res ting Encounters Encounter Location Date Provider Diagnosis Pulmonary Medicine [address] [address] 10/29/2024 Rubi Ridley Bird fancier's lung J67.2 ; Centrilobular emphysema J43.2 ; Bronchiectasis J47.9 ; CAD (coronary artery disease) I25.10 ; BRENDA (obstructive sleep apnea) G47.33 ; Idiopathic sleep related nonobstructive alveolar hypoventilation G47.34 ; custodial (current) use of inhaled steroids Z79.51 ; Obesity, unspecified E66.9 and History of Legionnaire's disease Z86.19 [facility] [address] [place] [phone] 12/10/2024 Sherri Jenkins BRENDA (obstructive sle ep apnea) G47.33 [facility] [address] [place] [phone] 12/24/2024 Sherrimary Jenkins [facility] [address] [place] [phone] [facility] [address] [address] 09/03/2024 Rubi Ridley Assessments Encounter Date Diagnosis (ICD Code) Assessment Notes Treatment Notes Treatment Clinical Notes Section Notes 10/29/2024 Centrilobular emphysema (ICD-10 - J43.2) Continues to have some response to Trelegy, but still remains symptomatic at this time. States he has tried other inhalers in the past, but noner were reakky that great. He said he will just stay on Trelegy for now. 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 No significant change on most recent HRCT 08/12/2024 as far back as 11/12/2020. The patient continues to voice concern and fear about getting worse. He stated that he wants to continue getting annual HRCT and PFT. 12/10/2024 BRENDA (obstructive sleep apnea) (ICD-10 - G47.33) 10/29/2024 Bronchiectasis (ICD-10 - J47.9) Mild bibasilar bronchiectasis mentioned on HRCT report 08/12/2024. 10/29/2024 CAD (coronary artery disease) (ICD-10 - I25.10) History of CAD, s/p cardiac stent (~2010). F/U with cardiology. 10/29/2024 BRENDA (obstructive sleep apnea) (ICD-10 - G47.33) He has O2 bled-in @ 4L/min into his CPAP 10/29/2024 Idiopathic sleep related nonobstructive alveolar hypoventilation (ICD-10 - G47.34) O2 bled-in to CPAP. 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 10/29/2024 Obesity, unspecified (ICD-10 - E66.9) Patient's weight is inducing a restrictive pulmonary physiology. Weight loss indicated: Decrease calories, increase activity. 10/29/2024 History of Legionnaire's disease (ICD-10 - Z86.19) Legionnaire's disease prior to any diagnosis of LIP/HP. 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 Plan Of Treatment Pending Test Test Name Order Date CBC AUTO DIFF 12/10/2024 CBC AUTO DIFF 01/24/2025 CRP 12/10/2024 LDH 12/10/2024 Erythrocyte Sedimentation Rate US right upper quadrant 01/01/2025 Manual Differential 12/10/2024 MALCOLM w/Reflex 12/10/2024 US abdomen limited 01/01/2025 TERI and PE, Serum 12/10/2024 Vitamin B12 12/10/2024 Lupus Anticoagulant Reflex 12/10/2024 Next Appt Details Provider Name:Sherri Jenkins , 03/04/2025 01:30:00 PM, [address] [place], [address], Provider Name:Rubi Ridley, 10/07/2025 09:00:00 AM, [address] [place], [phone], Insurance Providers Payer Name Payer Address Payer Phone Subscriber Number Group Number Insured Name Patient Relationship to Insured Coverage Start Date Coverage End Date [employer] MEDICARE [address] [place], [place] [phone] [id number] Maximino Clarke Self - patient is the insured 4 Medical (General) History Medical History History ICD Code Bird fancier's lung J67.2 Centrilobular emphysema J43.2 Bronchiectasis J47.9 BRENDA (obstructive sleep apnea) G47.33 Chronic respiratory failure with hypoxia J96.11 CAD (coronary artery disease) I25.10 Hypercholesterolemia E78.00 HTN (hypertension) I10 RBBB (right bundle branch block) I45.10 Chronic allergic rhinitis J30.9 BPH (benign prostatic hyperplasia) N40.0 DJD (degenerative joint disease) M19.90 History of Legionnaire's disease Z86.19 Surgical History Surgery Date(Month/Year) coronary artery bypass graft Colonoscopy 12/23/2022 Open lung biopsy 01/23/2001 Hospitalization History Reason Date(Month/Year) Pneumonitis 11/2018
[2025-02-25 11:20] LABS: Basophils Absolute Auto 0.1 10^3/uL (0.0-0.1); Basophils Percent Auto 0.9 % (0.2-2.0); Eosinophils Absolute Auto 0.2 10^3/uL (0.0-0.7); Eosinophils Percent Auto 3.3 % (0.9-7.0); Hematocrit 43.8 % (42.0-54.0); Hemoglobin 14.5 g/dL (14.0-18.0); Immature Granulocytes Abs Auto 0.02 10^3/uL (0.00-0.03); Immature Granulocytes Pct Auto 0.3 % (0.0-0.5); Mean Corpuscular HGB Conc 33.1 g/dL (29.9-35.2); Mean Corpuscular Hemoglobin 30.6 pg (25.9-34.0); Mean Corpuscular Volume 92.4 fL (80.0-94.0); Monocytes Absolute Auto 0.8 10^3/uL (0.3-0.8); Neutrophils Absolute Auto 3.3 10^3/uL (1.4-6.5); Neutrophils Percent Auto 51.5 % (43.0-75.0); Platelet Count 88 10^3/uL (150-450); Red Blood Count 4.74 10^6/uL (4.70-6.10); White Blood Count 6.3 10^3/uL (4.0-11.0)
== END 2025-02-25 11:05 | disposition home or self-care (01) ==
LOC: LAB 11:08
PROVIDERS: PCP Nurse Practitioner; Visit Provider Internal Medicine Hematology & Oncology
DX: D64.9 Anemia, unspecified (principal); D69.6 Thrombocytopenia, unspecified; D68.62 Lupus anticoagulant syndrome
CPT/HCPCS: 36415; 85025

== ENCOUNTER 2025-03-04 07:41 | Outpatient (RCR) | payer MEDICARE, SELFPAY | END 2025-03-05 08:53 | disposition home or self-care (01) | LOC: HEMC 07:41 | PROVIDERS: PCP Nurse Practitioner; Visit Provider Internal Medicine Hematology & Oncology | DX: D69.6 Thrombocytopenia, unspecified (principal); D68.62 Lupus anticoagulant syndrome; D64.9 Anemia, unspecified; I25.10 Atherosclerotic heart disease of native coronary artery without angina pectoris; Z95.5 Presence of coronary angioplasty implant and graft; Z79.82 Long term (current) use of aspirin; J43.9 Emphysema, unspecified | CPT/HCPCS: G0463 ==

== ENCOUNTER 2025-03-26 10:41 | Outpatient (OUT) | payer MEDICARE, SELFPAY ==
--- OUTSIDE RECORDS SUMMARY | 2025-03-26 10:46 | XMS_ITS | Referral Summary ---
Author Organization [facility] Address [address] [place] [address] Care Team Providers Care Lift Manager Name Role Phone EmileeMary Ellen gibson COTTON BALL BAGGER-Angelo Primary Care Provider [phone] Encounters Date Type Department Care Team Description 02/13/2025 Refill [facility] at [facility] [address] [place] [address] Lyric Tejeda MA Benign hypertensive heart disease without congestive heart failure from Last 3 Months Allergies No known active allergies Medications aspirin 81 mg EC tablet Take 1 tablet by mouth in the morning. Active cholecalciferol (Vitamin D-3) 25 MCG (1000 UT) capsule Take 1 capsule every day by oral route. Active albuterol 90 mcg/actuation inhaler INL 2 PFS PO Q 6 H PRN FOR SHORTNESS OF BREATH OR WHEEZING Active losartan (Cozaar) 25 mg tabletIndication s:Benign hypertensive heart disease without congestive heart failure Take 1 tablet (25 mg) by mouth in the morning. 30 tablet 11 4 Active potassium chloride CR (K-Tab) 20 mEq ER tabletIndication s:Benign hypertensive heart disease without congestive heart failure Take 1 tablet (20 mEq) by mouth in the morning. Do not crush, chew, or split. 5 tablet 4 05/27/20 25 Active Additional Information Patient not taking.Reported on 11/13/2024 carvedilol (Coreg) 6.25 mg tabletIndication s:Essential hypertension Take 1.5 tablets twice a day 270 tablet 3 4 Active Additional Information Patient taking differently: Takes 1 tablet in the AM, takes 1.5 tablets in the PM, Reported on 11/13/2024 rosuvastatin (Crestor) 20 mg tabletIndication s:Coronary artery disease due to lipid rich plaque TAKE 1 TABLET(20 MG) BY MOUTH IN THE MORNING 90 tablet 3 Active Additional Information Patient taking differently: 20 mg oral Nightly, Reported on 11/13/2024 esomeprazole (NexIUM) [address] capsule Take 40 mg by mouth in the morning. Active alfuzosin (Uroxatral) 10 mg 24 hr tablet Take 10 mg by mouth in the morning. Do not crush, chew, or split. Active losartan (Cozaar) 50 mg tabletIndication s:Benign hypertensive heart disease without congestive heart failure Take 1 tablet (50 mg) by mouth once daily as directed. 90 tablet 3 5 12/05/19 Active hydroCHLOROthiaz cecile (HYDRODiuril) 25 mg tabletIndication s:Benign hypertensive heart disease without congestive heart failure Take 1 tablet (25 mg) by mouth in the morning. 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 (AHI=26.5 events/hour; Robbie SaO2=86%; Temaly=231 lbs; BMI=28.94 kg/m2, Split-Night Study on 02/15/2011 at [facility]), b. (AHI=27.73 events/hour; Robbie SaO2=80.0%; Xemzbr=295 lbs; BMI=29.09 kg/m2, on 12/25/2007 at [facility]) Social History Tobacco Use Types Packs/Day Years Used Date Smoking Tobacco: Never Smokeless Tobacco: Never Tobacco Cessation:Counseling Given: Not Answered Alcohol Use Standard Drinks/Week Comments Yes 0 (1 standard drink = 0.6 oz pur e alcohol) [facility] Safety & Environment Answer Date Rec orded Fear of Current or Ex-Partner Not on file Emotionally Abused Not on file 11/23/2023 Physically Abused Not on file 11/23/2023 Sexually Abused Not on file 11/23/2023 Physically or Sexually Abused Not on file Sex and Gender Information Value Date Recorded Sex Assigned at Not on file Legal Sex Male 10:02 PM EDT Gender Identity Not on file Sexual [...] 11/13/2024 10:03 AM EST Plan of Treatment Upcoming Encounters Date Type Department Care Team (Late st Contact Info) Description 04/10/2025 1:15 PM EDT Office Visit [facility] Heart [facility] [address] [place] [address] Ad Malloy MD [address] [facility] [address] [facility] [place] [address] Insurance [employer]ETNA MEDICARE ADVANTAGE Care Teams Lift Manager Relationship Specialty Start Date End Date Mary Ellen Hebert FNP-C [address] [place] [address] PCP - General Nurse Practitioner 05/27/24
--- OUTSIDE RECORDS SUMMARY | 2025-03-26 10:46 | XMS_ITS | Clinical Summary ---
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 (AHI=26.5 events/hour; Robbie SaO2=86%; Fulnrv=414 lbs; BMI=28.94 kg/m2, Split-Night Study on 02/15/2011 at [facility]), b. (AHI=27.73 events/hour; Robbie SaO2=80.0%; Ofahjs=848 lbs; BMI=29.09 kg/m2, on 12/25/2007 at [facility]) Encounters Date Type Department Care Team Description 02/13/2025 Refill [facility] Heart at [facility] [address] [place] [address] Lyric Tejeda MA Benign hypertensive [...] Description 04/10/2025 1:15 PM EDT Office Visit [facility] [address] [place] [address] Ad Malloy MD [address] [facility] [place] [phone] Health Maintenance Due Date Last Done Comments CT Colonography 1957 FIT-DNA 1957 FIT 1957 FOBT 1957 Medicare Annual Wellness (AWV) 1955 Sigmoidoscopy 1957 Depression Screening 1969 Adult Tetanus 1979 Zoster Vaccines (1 of 2) 2007 Fall Risk Screening 2022 COVID-19 Vaccine ( season) 2024 07/08/2024, 09/21/2021, 01/05/2021, Additional history exists Colonoscopy 12/14/2032 12/14/2022, 09/11/2013 Colorectal Cancer Screening 12/14/2032 Pneumococcal Vaccine: 50+ Years Completed 07/05/2023, 07/01/2019 Influenza Vaccine Completed [...] on patient's age to complete this topic Insurance [employer] MEDICARE ADVANTAGE Care Teams Flow Manager Relationship Specialty Start Date End Date Mary Ellen Hebert FNP-C [address] [place] [address] PCP - General Nurse Practitioner 05/27/24
--- OUTSIDE RECORDS SUMMARY | 2025-03-26 10:46 | XMS_ITS | Clinical Summary ---
Author Organization [id number] Address [id number] [address] [place] [address] Care Team Providers Care Primary School Teacher Librarian Name Role Phone Unavailable Primary Care Provider [...]
--- OUTSIDE RECORDS SUMMARY | 2025-03-26 10:46 | XMS_ITS | Encounter Summary ---
Author Organization [facility] [employer] [facility] Address [facility] [place] [id number] [address] [place] [address] Care Team Providers Care Director Financial Planning Name Role Phone Unavailable Primary Care Provider Unavailabl e Encounter Details Date Type Department Care Team (Late st Contact Info) Description 05/09/2024 Orders Only [facility] Phys[facility] Sign In [address] [place] [phone] Surinder El MD [address] [facility] [address] [place] [address] Social History Tobacco Use Types Packs/Day Years [...]
[2025-03-26 10:58] LABS: Basophils Percent Auto 0.9 % (0.2-2.0); Eosinophils Absolute Auto 0.2 10^3/uL (0.0-0.7); Eosinophils Percent Auto 4.6 % (0.9-7.0); Hematocrit 43.7 % (42.0-54.0); Hemoglobin 14.5 g/dL (14.0-18.0); Immature Granulocytes Abs Auto 0.01 10^3/uL (0.00-0.03); Immature Granulocytes Pct Auto 0.2 % (0.0-0.5); Lymphocytes Absolute Auto 1.7 10^3/uL (1.2-3.8); Lymphocytes Percent Auto 37.5 % (20.5-60.0); Mean Corpuscular HGB Conc 33.2 g/dL (29.9-35.2); Mean Corpuscular Hemoglobin 30.3 pg (25.9-34.0); Mean Corpuscular Volume 91.4 fL (80.0-94.0); Mean Platelet Volume 12.1 fL (9.5-13.5); Monocytes Absolute Auto 0.5 10^3/uL (0.3-0.8); Monocytes Percent Auto 10.9 % (1.7-12.0); Neutrophils Absolute Auto 2.1 10^3/uL (1.4-6.5); Neutrophils Percent Auto 45.9 % (43.0-75.0); Platelet Count 100 10^3/uL (150-450); Red Blood Count 4.78 10^6/uL (4.70-6.10); Red Cell Distribution Width 12.8 % (11.0-15.0); White Blood Count 4.6 10^3/uL (4.0-11.0)
== END 2025-03-26 10:42 | disposition home or self-care (01) ==
LOC: LAB 10:44
PROVIDERS: PCP Nurse Practitioner; Visit Provider Internal Medicine Hematology & Oncology
DX: D64.9 Anemia, unspecified (principal); D69.6 Thrombocytopenia, unspecified; D68.62 Lupus anticoagulant syndrome
CPT/HCPCS: 36415; 85025

== ENCOUNTER 2025-04-29 09:46 | Outpatient (OUT) | payer MEDICARE, SELFPAY ==
[2025-04-29 10:06] LABS: Hematocrit 45.2 % (42.0-54.0); Hemoglobin 14.7 g/dL (14.0-18.0); Immature Granulocytes Abs Auto 0.01 10^3/uL (0.00-0.03); Immature Granulocytes Pct Auto 0.2 % (0.0-0.5); Lymphocytes Absolute Auto 1.6 10^3/uL (1.2-3.8); Mean Corpuscular HGB Conc 32.5 g/dL (29.9-35.2); Mean Corpuscular Hemoglobin 30.0 pg (25.9-34.0); Mean Corpuscular Volume 92.2 fL (80.0-94.0); Platelet Count 94 10^3/uL (150-450); Red Blood Count 4.90 10^6/uL (4.70-6.10); White Blood Count 5.0 10^3/uL (4.0-11.0)
== END 2025-04-29 09:47 | disposition home or self-care (01) ==
LOC: LAB 09:47
PROVIDERS: PCP Nurse Practitioner; Visit Provider Internal Medicine Hematology & Oncology
DX: D64.9 Anemia, unspecified (principal); D69.6 Thrombocytopenia, unspecified; D68.62 Lupus anticoagulant syndrome
CPT/HCPCS: 36415; 85025

== ENCOUNTER 2025-05-02 09:46 | Outpatient (OUT) | payer MEDICARE, SELFPAY ==
--- NOTE | 2025-05-02 10:01 | CA_ITS ---
Patient Name: MAXIMINO CLARKE MR#: [id number] : 1955 Exam Date: 05/02/2025 Ordering Doctor: DR MIKI PENA M.D. ECHOCARDIOGRAM REPORT PROCEDURE: CA ECHO DOPPLER COMPLETE INDICATIONS: HTN, MARQUEZ, Aortic dilatation COMPARISON: None. DESCRIPTION: COMPLETE ECHOCARDIOGRAM Real-time transthoracic echocardiography with 2D, M-mode, spectral and color flow Doppler performed. QUALITY: Technical quality was good. LEFT VENTRICLE: Normal chamber size. Thickened septal wall. Global left ventricular systolic function is normal. LV EF: Estimated left ventricular ejection fraction is 60-65%. DIASTOLIC: Grade II diastolic dysfunction. ATRIAL SEPTUM: LEFT ATRIUM: Moderate dilatation. RIGHT ATRIUM: Moderate dilatation. RIGHT VENTRICLE: Normal chamber size. Normal right ventricular systolic function. TRICUSPID VALVE: Normal mobility and thickness. No stenosis with mild regurgitation. Doppler studies reveal moderately elevated right sided pressures. RVSP 45 mmHg. MITRAL VALVE: Normal mobility and thickness. No evidence of mitral valve stenosis. There is no mitral annular calcification. Mild mitral regurgitation. AORTIC VALVE: Normal trileaflet appearance. No visible sclerosis. Normal leaflet mobility. No evidence of aortic valve stenosis. No aortic regurgitation. AORTIC ROOT: Normal diameter and appearance, measuring 3.9 cm. The ascending aorta is moderately dilated measuring 4.6 cm. The aortic arch measures 3.9 cm. PULMONIC VALVE: Normal thickness and mobility. No stenosis. No regurgitation. PERICARDIUM: No evidence of pericardial effusion. IVC: Collapses with inspiration. Normal size. PLEURA: CONCLUSION: 1. Normal left ventricular size and systolic function. LVEF is estimated at 60 to 65%. 2. Normal right ventricular size and systolic function. 3. Grade 2 diastolic dysfunction. 4. Mild mitral and tricuspid regurgitation. 5. Moderate biatrial dilatation. 6. Moderately elevated right-sided pressures. RVSP is 45 mmHg. 7. Moderately dilated ascending aorta measuring 4.6 cm. Adult Echocardiography Procedure Report Left Ventricle LVEDD (3.7 - 5.6 cm): 4.48 cm LVESD (2.2 - 4.0 cm): 2.92 cm LVIVS thickness (0.6 - 1.2 cm): 1.34 cm LVPW thickness (0.5 - 1.0 cm): 1.03 cm e': 0.08 m/s E - e': 5.78 LVOT Diameter 2.24 cm Left Ventricular Ejection Fraction: 60-65 % Left Atrium LA Volume Index (2D A2C): 37.84 ml/m2 Left Atrium Systolic Dimension: 4.41 cm Mitral Valve MV E to A Ratio: 1 Mitral Valve A-Wave Peak Velocity: 0.47 m/s Mitral Valve E-Wave Peak Velocity: 0.47 m/s Right Ventricle RV Internal Diastolic Dimension: 3.91 cm Aorta AO Root Diam: 3.90 cm Ascending Ao Diam: 4.19 cm Aortic Valve Tricuspid Valve Peak Velocity (Regurgitant Flow): 3.25 m/s, 2.97 m/s Pulmonic Valve Mean Gradient: 0.98 mm[Hg] Mean Velocity: 0.48 m/s Peak Velocity: 0.62 m/s, 0.61 m/s Peak Gradient: 1.48 mm[Hg], 1.55 mm[Hg] Right Atrium Right Atrium Systolic Pressure: 90.68 ml, 90.68 ml Dictated by: Pavel Flores M.D. on 05/02/2025 at 18:03 Approved by: Pavel Flores M.D. on 05/02/2025 at 18:07
== END 2025-05-02 09:47 | disposition home or self-care (01) ==
LOC: CARD 09:46
PROVIDERS: PCP Nurse Practitioner; Visit Provider Internal Medicine Interventional Cardiology
DX: R06.09 Other forms of dyspnea (principal); I11.9 Hypertensive heart disease without heart failure; I77.819 Aortic ectasia, unspecified site
CPT/HCPCS: 93306

== ENCOUNTER 2025-05-27 07:45 | Outpatient (RCR) | payer MEDICARE, SELFPAY | END 2025-06-01 23:59 | disposition home or self-care (01) | LOC: HEMC 07:45 | PROVIDERS: PCP Nurse Practitioner; Visit Provider Internal Medicine Hematology & Oncology | DX: D64.9 Anemia, unspecified (principal); D69.6 Thrombocytopenia, unspecified; D68.62 Lupus anticoagulant syndrome; I25.10 Atherosclerotic heart disease of native coronary artery without angina pectoris; Z95.5 Presence of coronary angioplasty implant and graft; Z79.82 Long term (current) use of aspirin; J43.2 Centrilobular emphysema; G47.30 Sleep apnea, unspecified | CPT/HCPCS: G0463 ==

== ENCOUNTER 2025-06-10 11:58 | Outpatient (OUT) | payer MEDICARE, SELFPAY ==
--- OUTSIDE RECORDS SUMMARY | 2025-06-10 12:03 | XMS_ITS | CCD ---
Author Organization [facility] Care Team Providers Care Grad Intern Name Role Phone ASHA BLANDON Primary Care Physician BLANDON ., DR ASHA Reyes Primary Care [...] Physician Mary Ellen Hebert Primary Care Physician [phone] MEME ESCALONASEKALI Falcon Admitting Unavailable ALASTAL, YASEEN S Attending Unavailable ALASTAL YASEEN S Attending Unavailable ALASTAL YASEEN S Referring Unavailable SHERLY BIGGS Attending Unavailable Unavailable Primary Care Provider Unavailalejandro e Mary Ellen Hebert Referring Unavailable Letty Ryan Attending Unavaila ble EmileeMary Ellen Attending Unavailable EmileeMary Ellen Attending Unavailable EmileeMary Ellen Attending Unavailable SAMEERJONNIE Attending Unavailable SAMEERJONNIE Attending Unavailable SAMEERJONNIE Attending Unavailable SAMEERJONNIE Admitting Unavailable SAMEER JONNIE E Attending Unavailable Emilee, VELMA Mary Ellen L Attending Unavailable Emilee, COMMERCIAL REAL ESTATE ATTORNEY Mary Ellen L Attending Unavailable Emilee, COMMERCIAL REAL ESTATE ATTORNEY Mary Ellen L Attending Unavailable Emilee, COMMERCIAL REAL ESTATE ATTORNEY Mary Ellen L Admitting Unavailable Emilee, COMMERCIAL REAL ESTATE ATTORNEY Mary Ellen Daniel Attending Unavailable SAMEER, PA-C JONNIE E Admitting Unavailab ROLY Navarro Attending Unavailab mckenna Ryan, Letty Argueta Attending Unavaila ble ALGHOTHANIKAT Attending Unavailable ALGHOTHANI, KAT Attending Unavailable ELTAHAWY, EHAB Attending Unavailable Sarmini, Letty Talal Admitting Unavaila ble Sarmini, Letty Talal Attending Unavaila ble Sarmini, Letty Talal Admitting Unavaila ble Sarmini, Letty Talal Attending Unavaila ble Emilee, COMMERCIAL REAL ESTATE ATTORNEY Mary Ellen L Admitting Unavailable Emilee, COMMERCIAL REAL ESTATE ATTORNEY Mary Ellen L Attending Unavailable Sarmini, Letty Talal Attending Unavaila ble Emilee, COMMERCIAL REAL ESTATE ATTORNEY Mary Ellen L Attending Unavailable Emilee, COMMERCIAL REAL ESTATE ATTORNEY Mary Ellen L Attending Unavailable NATHALY, Birdie A Attending Unavailabl e NATHALY, Birdie Gillis Referring Unavailabl e Sarmini, Letty Talal Admitting Unavaila ble Sarmini, Letty Coxal Attending Unavaila ble Sarmini, Letty Talal Referring Unavaila ble Emilee, COMMERCIAL REAL ESTATE ATTORNEY Mary Ellen L Admitting Unavailable Emilee, COMMERCIAL REAL ESTATE ATTORNEY Mary Ellen L Attending Unavailable Sarmini, Saenz Talal Referring Unavaila ble Allergies Allergy Classification Reported Allergen(s) Allergy Type Date of Onset Reaction(s) Facility (3 sources) No Known Medication Allergies; 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: [No Known Medication Allergies] Propensity to adverse reactions (disorder) [facility] Repository Medications Current Medications Medication Drug Class(es) Dates Sig (Normalized) Sig (Original) albuterol 0.83 mg/ml inhalation solution (6 sources) beta2-Adrenergic Agonist Start: 07-14-2023 take 2.5 mg by inhalation every six hours albuterol 0.083% Inh Anne 3 mL 2.5 mg, 3 mL, NEB, q6hr, Refill(s) 0 Start Date: 07/14/23 Status: Ordered Repeat number: 1 24 hr alfuzosin hydrochloride 10 mg extended release oral tablet (10 sources) alpha-Adrenergic Gurpreet Start: 12-03-2024 take 1 tablet by mouth once daily alfuzosin 10 mg ER Tab 10 mg = 1 tab(s), Oral, Daily, # 90 tab(s), Refills(s) 3, Pharmacy: [facility] #[id number], 174, cm, 12/03/24 11:22:00 EST, Height/Length Dosing, 94, kg, 12/03/24 11:22:00 EST, Weight Dosing Start Date: 12/03/24 Status: Ordered Quantity: 90.0 Unit: tab(s) Repeat number: 4 Start: 04-25-2024 take 1 tablet by oma [...] Daily, # 30 tab(s), Refills(s) 11, Pharmacy: [facility] #[id number], 174, cm, 12/04/23 9:07:00 EST, Height/Length Dosing, 90, kg, 12/04/23 9:07:00 EST, Weight Dosing Start Date: 12/04/23 Status: Ordered aspirin 81 mg delayed release oral tablet (13 sources) Platelet Aggregation Inhibitor, Nonsteroidal Anti-inflammatory Drug Start: 04-25-2024 take 1 tablet by mouth once daily Aspirin 81 mg tablet,delayed release (DR/EC) Active 81 MG PO Daily April 24, 2024 11:00pm Start: 04-25-2019 aspirin 81 mg, Chewed, Daily Start Date: 04/25/19 Status: Ordered Repeat number: 1 Start: 04-25-2019 aspirin 81 mg, Chewed, Daily Start Date: 04/25/19 Status: Ordered aspirin 81 mg ch ewable tablet Chew 1 tablet (81 mg total) and swallow in the morning. Active 60 actuat budesonide 0.09 mg/actuat dry powder inhaler (6 sources) Corticosteroid Start: 07-14-2023 Pulmicort Flex haler 90 mcg/inh inhalation powder 1 inh, Inhalation, BID, 1 EA, Refill(s) 11, [facility] #[id number], 172.7, cm, 07/14/23 13:11:00 EDT, Height/Length Dosing, 92, kg, 07/14/23 13:11:00 EDT, Weight Dosing Start Date: 07/14/23 Status: Ordered Quantity: 1.0 Unit: EA Repeat number: 12 Indications: Other specified health status; Encounter for screening for malignant neoplasm of prostate; Encounter for general adult medical examination without abnormal findings; Body mass index [BMI] 31.0-31.9, adult; Other fatigue; Essential (primary) hypertension; Chronic obstructive pulmonary disease, unspecified; carvedilol 6.25 mg oral tablet (18 sources) alpha-Adrenergic Gurpreet, beta-Adrenergic Gurpreet Start: 04-07-2025 carvedilol 6.25 mg Tab See Instructions, take 1 and 1/2 tab 2x daily, Refills(s) 0 Start Date: 04/07/25 Status: Ordered Repeat number: 1 Start: 03-14-2025 take 1 tablet by oma th twice daily carvedilol 12.5 mg Tab See Instructions, TAKE 1 TABLET BY MOUTH TWICE DAILY, # 180 tab(s), Refills(s) 0, [facility]: [id number], 174, cm, 12/03/24 11:22:00 EST, Height/Length Dosing, 94, kg, 12/03/24 11:22:00 EST, Weight Dosing Start Date: 03/14/25 Status: Ordered Quantity: 180.0 Unit: tab(s) Repeat number: 1 Start: 12-03-2024 carvedilol 6.2 5 mg Tab 12.5 mg = 2 tab(s), [...] BID, # 180 tab(s), Refills(s) 3, Pharmacy: [facility] #[id number], 174, cm, 01/02/24 10:21:00 EDT, Height/Length Dosing, 93.4, kg, 01/02/24 10:21:00 EDT, Weight Dosing Start Date: 02/08/24 Status: Ordered Start: 10-13-2023 take 1 tablet by moa th twice daily carvedilol 6.25 mg Tab 6.25 mg = 1 tab(s), Oral, BID, Refills(s) 0 Start Date: 10/13/23 Status: Ordered cholecalciferol 0.025 mg oral capsule (3 sources) Vitamin D Start: 04-25-2024 take 1 capsule by mouth once daily Cholecalciferol (Vitamin D3) 25 mcg (1,000 unit) capsule Active 25 MCG PO Daily April 24, 2024 11:00pm CPap supplies (5 sources) Start: 02-08-2024 CPap supplies CPap supplies, See Instructions, 2 EA, 1, Use for Sleep apnea, Supply Start Date: 02/08/24 Status: Ordered Quantity: 2.0 Unit: EA Repeat number: 2 Start: 02-08-2024 CPap supplies CPap supplies, See Instructions, 2 EA, 1, Use for Sleep apnea, Supply Start Date: 02/08/24 Status: Ordered D3 1000 intl units (25 mcg) oral tablet (7 sources) Start: 07-14-2023 take 1 tablet by mouth once daily D3 1000 intl units (25 mcg) oral tablet 25 mcg = 1 tab(s), Oral, Daily, Refills(s) 0 Start Date: 07/14/23 Status: Ordered Repeat number: 1 Start: 07-14-2023 take 1 tablet by oma th once daily D3 1000 intl units (25 mcg) oral tablet 25 mcg = 1 tab(s), Oral, Daily, Refills(s) 0 Start Date: 07/14/23 Status: Ordered esomeprazole 40 mg delayed release oral capsule (9 sources) Proton Pump Inhibitor Start: 01-27-2025 take 1 capsule by mouth once daily esomeprazole 40 mg Cap-EC See Instructions, TAKE 1 CAPSULE BY MOUTH DAILY, # 90 cap(s), Refills(s) 0, Pharmacy: [facility] #[id number], 174, cm, 12/03/24 11:22:00 EST, Height/Length Dosing, 94, kg, 12/03/24 11:22:00 EST, Weight Dosing Start Date: 01/27/25 Status: Ordered Quantity: 90.0 Unit: cap(s) Repeat number: 1 Start: 04-01-2024 take 1 capsule by [facility] once daily esomeprazole 40 mg Cap-EC See Instructions, TAKE 1 CAPSULE BY MOUTH DAILY, # 90 cap(s), Refills(s) 0, Pharmacy: [facility] #[id number], 174, cm, 10/07/24 15:26:00 EST, Height/Length Dosing, 94.7, kg, 10/07/24 15:26:00 EST, Weight Dosing Start Date: 10/10/24 Status: Ordered hydroCHLOROthiazide 25 mg oral tablet (8 sources) Thiazide Diuretic Start: 12-03-2024 hydrochlorothiazide 25 mg Tab 25 mg = 1 tab(s), Refills(s) 0 Start Date: 12/03/24 Status: Ordered Repeat number: 1 Start: 04-14-2024 take 1 tablet by [facility] once daily in the morning Hydrochlorothiazide 25 mg tablet Active 25 MG PO Every morning April 24, 2024 11:00pm hydroCHLOROthiazide 12.5 mg / losartan potassium 100 mg oral tablet (3 sources) Thiazide Diuretic, Angiotensin 2 Receptor Gurpreet Start: 07-12-2023 End: 08-11-2023 hydrochlorothiazide-losartan 12.5 mg-100 mg oral tablet 1 tab(s), Oral, Daily for 30 day(s), 30 tab(s), Refill(s) 0, [facility] #[id number], 172.7, cm, 11/22/22 15:44:00 EST, Height/Length Dosing, 92.5, kg, 11/22/22 15:44:00 EST, Weight Dosing Start Date: 07/12/23 Stop Date: 08/11/23 Status: Ordered Start: 11-03-2022 take 1 tablet by oma th once daily hydrochlorothiazide-losartan 12.5 mg-100 mg oral tablet 1 tab(s), Oral, Daily, Refill(s) 0 Start Date: 11/03/22 Status: Ordered losartan potassium 25 mg oral tablet (8 sources) Angiotensin 2 Receptor Gurpreet Start: 12-03-2024 losartan 25 mg Tab 2 5 mg = 1 tab(s), Refills(s) 0 Start Date: 12/03/24 Status: Ordered Repeat number: 1 Start: 04-14-2024 take 1 tablet by mouth [...] Ordered rosuvastatin calcium 20 mg oral tablet (10 sources) HMG-CoA Reductase Inhibitor Start: 10-13-2023 take 1 tablet by mouth once daily rosuvastatin 20 mg Tab 20 mg = 1 tab(s), Oral, Daily, Refills(s) 0 Start Date: 10/13/23 Status: Ordered Repeat number: 1 Completed/Discontinued Medications Medication Drug Class(es) Dates Sig (Normalized) Sig (Original) Glucose (1 source) Start: 03-25-2025 Glucose Kit Glucose Kit, See Instructions, 1 EA, 0, Glucose meter. Include autolet, matching test strips, lancets, & alcohol wipes, #100 or as allowed by insurance; DX: E11.9, [facility] #[id number], Supply, 174, cm, 03/25/25 8:43:00 EDT, Height/Length Dosing, 93.3, kg, 03/25/25 8:43:00 EDT, Weight Dosing Start Date: 03/25/25 Status: Ordered Quantity: 1.0 Unit: EA Repeat number: 1 Indications: Body mass index [BMI] 30.0-30.9, adult; Type 2 diabetes mellitus without complications; Thrombocytopenia, unspecified; Other specified health status; predniSONE 10 mg oral tablet (1 source) Start: 07-14-2023 predniSONE 10 mg Tab 90 EA, 0 Refill(s), TAKE 1 TABLET BY MOUTH EVERY MORNING, Refills(s) 0 Start Date: 07/14/23 Status: Ordered Problems Active Problems Problem Classification Problem Date Documented Date Episodic/Chronic Abdominal pain (6 sources) Abdominal pain; 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: [Unspecified abdominal pain] Onset: 4 Episodic Aortic; peripheral; and visceral artery aneurysms (2 sources) Aortic ectasia, unspecified site; 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: [Aortic ectasia, unspecified site] Onset: 5 Chronic Biliary tract disease (14 sources) Gallstone; 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: [Biliary calculus] 04-25-2019 Episodic Chronic kidney disease (7 sources) Chronic kidney disease stage 3; 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: [Stage 3 chronic kidney disease] 04-25-2024 Chronic Chronic obstructive pulmonary disease and bronchiectasis (19 sources) Chronic obstructive lung disease; 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: [Pulmonary emphysema] Onset: 3 11-03-2022 Chronic Coagulation and hemorrhagic disorders (9 sources) Thrombocytopenic disorder; 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: [Thrombocytopenia, unspecified] Onset: 5 04-25-2024 Chronic Congestive heart failure; nonhypertensive (2 sources) Chronic diastolic (congestive) heart failure; 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: [Chronic diastolic (congestive) heart failure] Onset: 5 Chronic Coronary atherosclerosis and other heart disease (20 sources) Coronary arteriosclerosis; 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: [Atherosclerotic heart disease of [place] coronary artery without angina pectoris] Onset: 3 04-25-2019 Chronic Coronary atherosclerosis and other heart disease (1 source) Presence of coronary angioplasty implant and graft; 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: [PRESENCE COR ANGPLSTY IMPLANT AND GRAFT] Onset: 3 Episodic Deficiency and other anemia (1 source) Anemia 04-07-2025 Episodic Diabetes mellitus without complication (1 source) Type 2 diabetes mellitus 03-25-2025 Chronic Disorders of lipid metabolism (19 sources) Hyperlipidemia; 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: [Hyperlipidemia, unspecified] Onset: 3 04-25-2019 Chronic Diverticulosis and diverticulitis (1 source) Diverticulosis of large intestine without perforation or abscess without bleeding; 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: [DVRTCLOS LG INT NO PERF/ABSC W/O BL] Onset: 3 Chronic Essential hypertension (12 sources) Hypertensive disorder; 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: [Essential (primary) hypertension] Onset: 3 04-25-2019 Chronic Gastrointestinal hemorrhage (20 sources) Melena; 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: [Melena] Onset: 3 Episodic Genitourinary symptoms and ill-defined conditions (20 sources) Ronny hematuria; 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: [Nocturia] Onset: 3 05-13-2019 Episodic Headache; including migraine (6 sources) Headache 08-30-2023 Episodic Hyperplasia of prostate (19 sources) Benign prostatic hypertrophy with outflow obstruction; 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: [Benign prostatic hyperplasia with lower urinary tract symptoms] Onset: 3 05-04-2020 Chronic Hypertension with complications and secondary hypertension (9 sources) Chronic kidney disease due to hypertension; 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: [Hypertensive chronic kidney disease with stage 1 through stage 4 chronic kidney disease, or unspecified chronic kidney disease] Onset: 4 04-25-2024 Chronic Malaise and fatigue (9 sources) Chronic fatigue syndrome 11-03-2022 Chronic Malaise and fatigue (8 sources) Other fatigue; 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: [Fatigue] Onset: 3 07-14-2023 Episodic Noninfectious gastroenteritis (1 source) Noninfective gastroenteritis and colitis, unspecified; 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: [NONINFECTIVE GE AND COLITIS UNS] Onset: 3 Episodic Other aftercare (1 source) longterm (current) use of aspirin; 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: [NURSING HOME CURRENT USE OF ASPIRIN] Onset: 3 Episodic Other diseases of kidney and ureters (3 sources) Secondary hyperparathyroidism; 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: [Secondary hyperparathyroidism of renal origin] 04-25-2024 Chronic Other diseases of kidney and ureters (4 sources) Secondary hyperparathyroidism of renal origin; 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: [Secondary hyperparathyroidism (of renal origin)] 04-25-2024 Chronic Other lower respiratory disease (9 sources) Fibrosis of lung 11-03-2022 Chronic Other lower respiratory disease (6 sources) Cough 08-30-2023 Episodic Other lower respiratory disease (2 sources) Other forms of dyspnea; 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: [Other forms of dyspnea] Onset: 5 Episodic Other male genital disorders (5 sources) Male erectile dysfunction, unspecified; 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: [Erectile dysfunction] Onset: 5 Chronic Other nutritional; endocrine; and metabolic disorders (9 sources) Body mass index 30+ - obesity 11-22-2022 Chronic Other screening for suspected conditions (not mental disorders or infectious disease) (20 sources) Raised prostate specific antigen; 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: [Decreased testosterone level ] Onset: 2 05-04-2020 Episodic Other upper respiratory infections (4 sources) Sinusitis 10-07-2024 Chronic Other upper respiratory infections (6 sources) Sore throat symptom 08-30-2023 Episodic Otitis media and related conditions (11 sources) Otitis media of right ear; 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: [Finding of fluid behind tympanic membrane] 08-30-2023 Episodic Pancreatic disorders (not diabetes) (14 sources) Cyst of pancreas; 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: [Cyst of pancreas] Onset: 4 Episodic Pneumonia (except that caused by tuberculosis or sexually transmitted disease) (10 sources) Legionella pneumonia; 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: [Legionnaires' disease] Onset: 3 04-25-2019 Episodic Residual codes; unclassified (9 sources) Sleep apnea 04-25-2019 Chronic Residual codes; unclassified (1 source) Sleep apnea, unspecified; 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: [SLEEP APNEA UNSPECIFIED] Onset: 3 Chronic Thyroid disorders (4 sources) Hypothyroidism, unspecified; 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: [HYPOTHYROIDISM UNSPECIFIED] Onset: 3 Chronic Unclassified (14 sources) Patient encounter status 07-14-2023 Past or Other Problems Problem Classification Problem Date Documented Da te Episodic/Chronic Unclassified (9 sources) Drug therapy finding 11-03-2022 Results Test Name Value Interpretation Reference Range Facility Lab Miscellaneous-LCon 05-13 Lab Miscellaneous COMMENT Invalid Interpretation Code [facility] Comment on above: Result Comment: Test Ordered: [id number] Enhanced Liver Fibrosis (ELF) ELF(TM) Score 9.85 [H ] BN Reference Range: <9.80 ELF(TM) Score Interpretation: Risk cut-offs to assess the likelihood of progression to cirrhosis and liver-related clinical events within 3.9 years following baseline ELF score (IQR: 14.0-22.4 months)*: Lower risk < 9.80 Mid risk 9.80 - 11.29 Higher risk >11.29 Note: The ELF(TM) Score is a unitless numerical value. *Rashi SA, Florencio VW, Claudia T, et al. Selonsertib for patients with bridging fibrosis or compensated cirrhosis due to [place]: Results from randomized phase III STELLAR trials. J Hepatol. 2020 Apr;73(1):26-39. Performed at: [address] [id number] PhD Luana Baeza Performed By: #### 1 [id number] #### [facility] [address] [place] [address] .Interpretation:on Interpretation: Comment Invalid Interpretation Code [facility] Comment on above: Result Comment: Not infected with HCV unless early or acute infection is suspected (which may be delayed in an immunocompromised individual), or other evidence exists to indicate HCV infection. Performed at: [address] [id number] PhD Luana Baeza Performed By: #### 2 [id number] #### [facility] [address] [place] [address] AFPon 05-09-2025 AFP 1.8 ng/mL Invalid Interpretation Code 0.0-8.4 [facility] Comment on above: Result Comment: [facility] [employer] Electrochemiluminescence Immunoassay (ECLIA) Values obtained with different assay methods or kits cannot be used interchangeably. Results cannot be interpreted as absolute evidence of the presence or absence of malignant disease. This test is not interpretable in females. Performed at: [address] [id number] PhD Luana Baeza Performed By: #### 2 [id number] #### [facility] [address] [place] [address] HCV Antibody RFX to Quant PC Fernando 05-09-2025 HCV Ab Non-Reactive Invalid Interpretation Code Non Reactive [facility] Comment on above: Result Comment: Perf ormed at: [address] [id number] PhD Luana Baeza Performed By: #### 2 [id number] #### [facility] [address] [place] [address] Hep Bs Abon 05-09-2025 Hep Bs Ab Non-Reactive Invalid Interpretation Code [facility] Comment on above: Result Comment: Non Reactive: Not immune to HBV infection. Equivocal: Unable to determine if anti-HBs is present at levels consistent with immunity. Reactive: Anti-HBs concentration detected at greater than 10 mIU/mL. Individual is considered to be immune to infection with HBV. Performed at: [address] [id number] PhD Santoskelvin Baeza Performed By: #### 2 [id number] #### [facility] [address] [place] [address] Hep Bs Agon 05-09-2025 Hep Bs Ag Negative Invalid Interpretation Code Negative [facility] Comment on above: Result Comment: Perf ormed at: [address] [id number] PhD Santoskelvin Aryan Performed By: #### 2 [id number] #### [facility] [address] [place] [address] MRI Cholangiogram Pancreatog blanquita (mrcp)on 05-09-2025 MRI Cholangiogram Pancreatography (mrcp) Exam Date/Time: 05/08/2025 11:24 EDT Reason for Exam: Pancreatic cyst;Other (please specify) Report IMPRESSION: UP TO APPROXIMATELY 2.7 CM PANCREATIC CYST. WITHOUT PRIOR STUDIES FOR COMPARISON, A SIX-MONTH FOLLOW-UP ABDOMEN MRI WITHOUT AND WITH CONTRAST IS SUGGESTED, RATHER THAN MRCP. CHOLELITHIASIS. EXAM: MRI Cholangiogram Pancreatography (MRCP) DATE: 05/08/2025 10:52 AM CLINICAL HISTORY: Pancreatic cyst. Technologist Comments: known pancreatic cyst per pt; pt denies any symptoms/complaints. COMPARISON: None available. TECHNIQUE: Multiplanar MR imaging of the abdomen was performed with MRCP protocol. Routine and volume rendered images were obtained on a three-dimensional workstation. FINDINGS: A lobulated cyst versus cluster within the superior aspect of the pancreatic neck measures approximately 2.7 cm in maximum sagittal dimension and does not expand or definitely extend into the adjacent pancreatic duct. The pancreas and pancreatic duct are otherwise unremarkable. No abnormal biliary ductal dilatation. The common duct measures approximately 3 mm in caliber at the sirisha hepatis. Several small gallstones are noted within the gallbladder. There is no. Peripancreatic inflammatory changes, pathologically enlarged lymph nodes, or other findings of concern identified. Two approximately 1.2 cm well-defined fluid signal cysts are present within the dome of the otherwise unremarkable-appearing liver. An approximately 1 cm cyst noted within the superior pole of otherwise unremarkable left shoulder. Spleen. An approximately 1.8 cm cyst within the lower pole of the right kidney. Both kidneys are otherwise unremarkable. The visualized great vessel and bowel segments appear within normal limits. Report Ordering Provider: Letty yRan FINAL REPORT Dictated: 05/09/2025 2:46 pm Billy Feliciano MD Signed (Electronic Signature): 05/09/2025 2:46 pm Signed by: Billy Feliciano MD Transcribed by: YAQUELIN Technologist: ESTELA Normal [facility] CBC w/ Auto Diffon 5 Basophil Absolute 0.0 E9/L Normal 0.0-0.2 [facility] Comment on above: Performed By: #### 2 [id number] #### [facility] [address] [place] [address] Basophils/100 WBC (Bld) 0.8 % Normal 0.0-2.0 [facility] Comment on above: Performed By: #### 2 [id number] #### [facility] [address] [place] [address] Eos Absolute 0.1 E9/L Normal 0.0-0.5 [facility] Comment on above: Performed By: #### 2 [id number] #### [facility] [address] [place] [address] Eosinophils/100 WBC (Bld) 3.6 % Normal 0.0-8.0 [facility] Comment on above: Performed By: #### 2 [id number] #### [facility] [address] [place] [address] Erythrocyte distribution width (RBC) [Ratio] 14.0 % Normal 10.9-14.2 [facility] Comment on above: Performed By: #### 2 [id number] #### [facility] [address] [place] [address] Hematocrit (Bld) [Volume fraction] 44.6 % Normal 37.7-49.0 [facility] Comment on above: Performed By: #### 2 [id number] #### [facility] [address] [place] [address] Hemoglobin (Bld) [Mass/Vol] 14.7 g/dL Normal 13.5-17.5 [facility] Comment on above: Performed By: #### 2 [id number] #### [facility] [address] [place] [address] Lymph Absolute 1.4 E9/L Normal 1.0-4.0 [facility] Comment on above: Performed By: #### 2 [id number] #### [facility] [address] [place] [address] Lymphocytes/100 WBC (Bld) 34.1 % Normal 14.0-50.0 [facility] Comment on above: Performed By: #### 2 [id number] #### [facility] [address] [place] [address] MCH (RBC) [Entitic mass] 29.5 pg Normal 27.0-34.0 [facility] Comment on above: Performed By: #### 2 [id number] #### [facility] [address] [place] [address] MCHC (RBC) [Mass/Vol] 33.0 g/dL Normal 31.4-36.0 [facility] Comment on above: Performed By: #### 2 [id number] #### [facility] [address] [place] [address] MCV (RBC) [Entitic vol] 89.4 fL Normal 80.0-100.0 [facility] Comment on above: Performed By: #### 2 [id number] #### [facility] [address] [place] [address] [place] Absolute 0.5 E9/L Normal 0.2-1.0 [place] [facility] Comment on above: Performed By: #### 2 [id number] #### [facility] [address] [place] [address] Monocytes/100 WBC (Bld) 11.6 % Normal 4.0-14.0 [facility] Comment on above: Performed By: #### 2 [id number] #### [facility] [address] [place] [address] Neutro Absolute 2.0 E9/L Normal 2.0-7.5 [facility] Comment on above: Performed By: #### 2 [id number] #### [facility] [address] [place] [address] Neutro Auto 49.9 % Normal 36.0-75.0 [facility] Comment on above: Performed By: #### 2 [id number] #### [facility] [address] [place] [address] Platelet 87.0 E9/L Low 150.0-500.0 [facility] Comment on above: Performed By: #### 2 [id number] #### [facility] [address] [place] [address] Platelet mean volume (Bld) [Entitic vol] 10.3 fL Normal 6.4-10.8 [facility] Comment on above: Performed By: #### 2 322296 #### [facility] [address] [place] [address] RBC 5.0 E12/L Normal 4.3-5.9 [facility] Comment on above: Performed By: #### 2 [id number] #### [facility] [address] [place] [address] WBC 4.1 E9/L Normal 4.0-11.0 [facility] Comment on above: Performed By: #### 2 [id number] #### [facility] [address] [place] [address] CMPon 05-08-2025 Albumin [Mass/Vol] 4.1 g/dL Normal 3.3-5.0 [facility] Comment on above: Performed By: #### 2 [id number] #### [facility] [address] [place] [address] Albumin/Globulin [Mass ratio] 1.2 {ratio} Normal 1.1-2.2 [facility] Comment on above: Performed By: #### 2 [id number] #### [facility] [address] [place] [address] Alk Phos 61 Int._Unit/L Normal 21-98 [facility] Comment on above: Performed By: #### 2 [id number] #### [facility] [address] [place] [address] ALT 17 Int._Unit/L Normal 6-46 [facility] Comment on above: Performed By: #### 2 449182 #### [facility] [address] [place] [address] Anion gap [Moles/Vol] 11 mmol/L Normal 6-16 [facility] Comment on above: Performed By: #### 2 450633 #### [facility] [address] [place] [address] AST 19 Int._Unit/L Normal 5-43 [facility] Comment on above: Performed By: #### 2 [id number] #### [facility] [address] [place] [address] Bili Total 0.6 mg/dL Normal 0.0-1.1 [facility] Comment on above: Performed By: #### 2 515143 #### [facility] [address] [place] [address] BUN/Creat Ratio 11 No Units Normal 10-20 [facility] Comment on above: Performed By: #### 2 [id number] #### [facility] [address] [place] [address] Calcium [Mass/Vol] 9.0 mg/dL Normal 8.9-11.1 [facility] Comment on above: Performed By: #### 2 354102 #### [facility] [address] [place] [address] Chloride [Moles/Vol] 106 mmol/L Normal 101-111 [facility] Comment on above: Performed By: #### 2 186950 #### [facility] [address] [place] [address] CO2 [Moles/Vol] 27 mmol/L Normal 21-31 [facility] Comment on above: Performed By: #### 2 [id number] #### [facility] [address] [place] [address] Creatinine [Mass/Vol] 1.5 mg/dL High 0.5-1.3 [facility] Comment on above: Performed By: #### 2 [id number] #### [facility] [address] [place] [address] Globulin (S) [Mass/Vol] 3.3 g/dL Normal 1.4-4.0 [facility] Comment on above: Performed By: #### 2 [id number] #### [facility] [address] [place] [address] Glucose [Mass/Vol] 87 mg/dL Normal 55-199 [facility] Comment on above: Performed By: #### 2 [id number] #### [facility] [address] [place] [address] Potassium [Moles/Vol] 3.5 mmol/L Normal 3.5-5.3 [facility] Comment on above: Performed By: #### 2 026286 #### [facility] [address] [place] [address] Protein [Mass/Vol] 7.4 g/dL Normal 6.0-7.8 [facility] Comment on above: Performed By: #### 2 999285 #### [facility] [address] [place] [address] Sodium [Moles/Vol] 140 mmol/L Normal 135-145 [facility] Comment on above: Performed By: #### 2 [id number] #### [facility] [address] [place] [address] Urea nitrogen [Mass/Vol] 16 mg/dL Normal 5-21 [facility] Comment on above: Performed By: #### 2 764236 #### [facility] [address] [place] [address] Lab Miscellaneous-LCon 05-08 Test Code 554407 Invalid Interpretation Code [facility] Comment on above: Performed By: #### 1 [id number] #### [facility] [address] [place] [address] Test Name elf Invalid Interpretation Code [facility] Comment on above: Performed By: #### 1 [id number] #### [facility] [address] [place] [address] PTon 05-08-2025 INR Coag (PPP) [Relative time] 1.12 {INR} Invalid Interpretation Code [facility] Comment on above: Result Comment: INR results are specifically intended to assess patients stabilized on long-term Anticoagulation therapy suggested INR???s ???Less Intensive Anticoagulation??? 2.0 ??? 3.0 Conventional Range 3.0 ??? 4.5 Performed By: #### 2 [id number] #### [facility] [address] [place] [address] PT 12.6 second(s) High 9.4-12.5 [facility] Comment on above: Result Comment: 15 d ays - 4 weeks 1 - 5 months 6 -11 months 1- 5 years 6-10 years 11 -17 years Mean: 11.2 (9.5-12.6) Mean: 11.0 (9.7-12.8) Mean: 11.0 (9.8-13.0) Mean: 11.3 (9.9-13.4) Mean: 11.7 (10.0-14.6) Mean: 11.8 (10.0 - 14.1) Pediatric Reference ranges were obtained from a study by Sandro Vizcarra et al. prepared from 1437 samples obtained at 7 different centers using the same coagulation reagent and instrumentation as [facility]. Currently there are no coagulation studies available worldwide for children to 14 days, and no normal ranges. Performed By: #### 2 [id number] #### [facility] [address] [place] [address] eGFRon 05-08-2025 eGFR 50 mL/min/1.73 m2 Low >=59 [facility] Comment on above: Performed By: #### 1 [id number] #### [facility] [address] [place] [address] Office Visiton 04-10-2025 Follow-up visit [id number] Padmini Clarke 1955 M Date Provider Department Center 04/10/2025 [id number] Family History Problem Relation Age of Onset Hypertension Mother Cancer Mother Family Status - Relation Status Age at Mother Level of Service:33802 MO OFFICE/OUTPATIENT ESTABLISHED MOD MDM 30 MIN Normal [facility] Gastroenterology Office/Clin ic Noteon 04-09-2025 Gastroenterology Office/Clinic Note Gastroenterology Office/Clinic Note Chief Complaint ref by Alice for anemia HPI Staff Established patient is a(n) 70 year old male who was referred by Alice for thrombocytopenia. Any fatigue/tiredness? does have this often. Any n/v/c/d or blood in stools? No. Any blood thinners? aspirin 81mg daily Any GLP-1 agonists? no RUQ US 01/01/25 @ [facility]: IMPRESSION: CHOLELITHIASIS. PANCREATIC AND RIGHT RENAL CYST, ALSO SEEN PREVIOUSLY. LIMITED ULTRASOUND - left upper quadrant NO SPLENIC ABNORMALITIES. Laboratory Results CBC CMP Basophil Absolute: 0 E9/L (03/20/25) A/G Ratio: 1.4 (03/20/25) Basophil Auto: 0.7 % (03/20/25) AGAP: 9 mEq/L (03/20/25) Eos Absolute: 0.2 E9/L (03/20/25) Albumin Lvl: 4 gm/dL (03/20/25) Eos Auto: 4.2 % (03/20/25) Alk Phos: 58 Int._Unit/L (03/20/25) Hct: 43.6 % (03/20/25) ALT: 18 Int._Unit/L (03/20/25) HGB: 14.2 gm/dL (03/20/25) AST: 19 Int._Unit/L (03/20/25) Lymph Absolute: 1.3 E9/L (03/20/25) Bili Total: 0.5 mg/dL (03/20/25) Lymph Auto: 32.9 % (03/20/25) BUN: 13 mg/dL (03/20/25) MCH: 29.4 pg (03/20/25) BUN/Creat Ratio: 11 (03/20/25) MCHC: 32.5 gm/dL (03/20/25) Calcium Lvl: 8.9 mg/dL (03/20/25) MCV: 90.5 fL (03/20/25) Chloride: 111 mmol/L (03/20/25) [place] Absolute: 0.5 E9/L (03/20/25) CO2: 24 mmol/L (03/20/25) [place] Auto: 13.3 % (03/20/25) Creatinine: 1.2 mg/dL (03/20/25) MPV: 11.2 fL High (03/20/25) Globulin: 2.9 gm/dL (03/20/25) Neutro Absolute: 2 E9/L (03/20/25) Glucose Lvl: 101 mg/dL (03/20/25) Neutro Auto: 48.9 % (03/20/25) Potassium Lvl: 3.8 mmol/L (03/20/25) Platelet: 86 E9/L Low (03/20/25) Sodium Lvl: 140 mmol/L (03/20/25) RBC: 4.8 E12/L (03/20/25) Total Protein: 6.9 gm/dL (03/20/25) RDW: 13.8 % (03/20/25) WBC: 4.1 E9/L (03/20/25) History of Present Illness Reviewed HPI collected by staff Review of Systems PHQ Score Initial Depression Screen Score: 0 SCORE All systems reviewed, negative; Except for above Physical Exam Vitals & Measurements HR: 61(Peripheral) RR: 16 BP: 118/78 HT: 174 cm HT: 69 in WT: 91.3 kg WT: 201.282 lb BMI: 30.16 No acute distress Procedure Colonoscopy 12/14/22 w/Dr. Clay: POSTOPERATIVE DIAGNOSIS: Prominent rectal veins, mild sigmoid diverticulosis as well as some nodularity at the ileocecal valve. Pathology: Ileocecal valve, biopsy: -Focal active colitis EUS 04/30/24 @ [facility]: IMPRESSION: -Normal upper third of esophagus, middle third of esophagus and lower third of esophagus. -Mild gastritis, characterized by erythema. Biopsied. -Normal first portion of the duodenum and second portion of the duodenum. -Two adjacent cystic lesions were ween in the neck/body of the pancreas with no evidence of pancreatic mass -Cholelithiasis -Changes the pancreatic parenchyma indeterminate for chronic pancreatitis RECOMMENDATIONS: -Consider MRCP in 6-12 months for monitoring pancreatic cyst, would consider FNA of the cyst in the future if cyst persists or increases in size Pathology: Gastric biopsy: Mild chronic gastritis with intestinal metaplasia present. Negative for Helicobacter organisms on routine H&E examination Negative for dysplasia or malignancy. Assessment/Plan 1. Thrombocytopenia (D69.6: Thrombocytopenia, unspecified) Occasional alcohol use No known Fhx of liver disease RUQ US 01/01/25 @ [facility]: cholelithiasis. Pancreatic and right renal cyst, also seen previously. No splenic abnormalities - ELF test ordered - Consider Fibroscan when available 2. Pancreas cyst (K86.2: Cyst of pancreas) 2 small lesions noted on CT 01/2024- Discussed referral to Dr Feliz to proceed with EGD/EUS with random gastric biopsy, if negative we will alternate between EUS/MRCP Mother had pancreatic cancer at age 75- annual imaging is reasonable (EUS/MRCP) - Schedule MRI to evaluate IGertrudis, personally scribed for Letty Ryan on 04/07/2025 11:01:39. . Follow-up With When Contact Information Connor DHALIWAL, SHANNON Lees, MATTI In 2 months [address], [address] [address]- [phone] Additional Instructions: Problem List/Past Medical History Ongoing Anemia Benign prostatic hypertrophy with outflow obstruction BMI 31.0-31.9,adult Cholelithiases Chronic fatigue syndrome Chronic obstructive pulmonary disease Coronary artery disease Cough ED (erectile dysfunction) Emphysema of lung Fatigue Gallstones Gross hematuria Hyperlipidemia Hypertension Interstitial pulmonary fibrosis Legionnaire's disease Low testosterone Nocturia Pancreas cyst Prostate cancer screening Rectal bleeding Sleep apnea Thrombocytopenia Type 2 diabetes mellitus Historical Abdominal pain Anticoagulated Elevated PSA Fluid level behind tympanic membrane of both ears Headache Hematochezia Right otitis media Sinusitis Sore throat Urging to urinate Weak ur (more content not included)... Normal [facility] Comment on above: Result Comment: Elec tronically Signed By: Gertrudis Elder MA\.br\Date and Time Signed: 04/07/25 11:08 EDT\.br\Electronically Co-Signed By: Letty Ryan MD\.br\Date and Time Co-Signed: 04/09/25 14:37 EDT Ambulatory Visit Summaryon 0 04-07-2025 Ambulatory Visit Summary Ambulatory Visit Summary MAXIMINO CLARKE Amy :1955 Visit Date:04/07/2025 Ambulatory Visit Instructions Your Diagnosis Thrombocytopenia Pancreas cyst Your Care Team Attending Physician - Letty Ryan MD Primary Care Physician - Mary Ellen Dela Cruz This Is Your Medications List Contact prescribing physician if questions or concerns Misc Prescription (CPap supplies) Misc Prescription (Glucose Kit) alfuzosin (alfuzosin 10 mg ER Tab) aspirin carvedilol (carvedilol 12.5 mg Tab) carvedilol (carvedilol 6.25 mg Tab) cholecalciferol (D3 1000 intl units (25 mcg) oral tablet) esomeprazole (esomeprazole 40 mg Cap-EC) hydrochlorothiazide (hydrochlorothiazide 25 mg Tab) losartan (losartan 25 mg Tab) rosuvastatin (rosuvastatin 20 mg Tab) Procedures Performed Colonoscopy (12/14/2022), Transrectal biopsy of prostate using ultrasound (US) guidance (04/29/2019), Cystoscopy w/UD (07/17/2017), Cystoscopy (04/09/2014), Colonoscopy (09/11/2013), Cardiac catheterization, Cardiac Stent, CE - Cataract extraction, Fluid Removed from Lungs, Partial colectomy. Discharge Vitals Heart Rate (Peripheral) 61 Respiratory Rate 16 Blood Pressure 118/78 Height 174 cm Height 69 in Weight 91.3 kg Weight 201.282 lb BMI 30.16 What to do next Scheduled Follow-Up Appointments Monday 9:40 AM EDT With: Mary Ellen Dela Cruz Where: [address] [address]- Monday 10:15 AM EDT With: Letty Ryan MD Where: [facility] [address] [address]- 2024 9:30 AM EST With: Where: [address] [address]- 2024 10:20 AM EST With: Mary Ellen Dela Cruz Where: [address] [address] 2025 9:30 AM EST With: Where: [facility] [address] [place] [address]- 2025 9:40 AM EST With: JONNIE ESTRELLA PA-C Where: [facility] [address] [facility] [place] [address]- You Need to Schedule the Following Appointments Follow Up with Connor DHALIWAL, Letty Argueta, [facility], [facility] When: In 2 months Where: [address], [address] [address]- [phone] You Need to Complete the Following Alpha Fetoprotein Tumor Marker, Blood, Routine collect, 04/07/25, Order for future visit, Lab Collect, Acquired thrombocytopenia Pancreas cyst Anemia, Required & Missing, Print Label By Order Location CBC w/ Auto Diff, Blood, Routine collect, 04/07/25, Order for future visit, Lab Collect, Acquired thrombocytopenia Pancreas cyst Anemia, Not Required, Print Label By Order Location Comprehensive Metabolic Panel, Blood, Routine collect, 04/07/25, Order for future visit, Lab Collect, Acquired thrombocytopenia Pancreas cyst Anemia, Not Required, Print Label By Order Location HCV Antibody RFX to Quant PCR, Blood, Routine collect, 04/07/25, Order for future visit, Lab Collect, Acquired thrombocytopenia Pancreas cyst Anemia, Not Required, Print Label By Order Location Hepatitis B Surface Antibody, Blood, Routine collect, 04/07/25, Order for future visit, Lab Collect, Anemia Acquired thrombocytopenia, Not Required, Print Label By Order Location Hepatitis B Surface Antigen, Blood, Routine collect, 04/07/25, Order for future visit, Lab Collect, Acquired thrombocytopenia Pancreas cyst Anemia, Not Required, Print Label By Order Location Lab Miscellaneous-LC, Not Specified, Routine collect, elf, 04/07/25, Order for future visit, Lab Collect, Acquired thrombocytopenia, Print Label By Order Location, 20[address] PT, Blood, Routine collect, 04/07/25, Order for future visit, Lab Collect, Acquired thrombocytopenia Pancreas cyst Anemia, Not Required, Print Label By Order Location Medications What How Much When Why Instructions Unchanged alfuzosin (alfuzosin 10 mg ER Tab) 1 Tablets By Mouth Every day Contact prescribing physician if questions or concerns Unchanged aspirin 81 Milligram Chewed Every day Contact prescribing physician if questions or concerns Unchanged carvedilol (carvedilol 12.5 mg Tab) See instructions TAKE 1 TABLET BY MOUTH TWICE DAILY Contact prescribing physician if questions or concerns Unchanged carvedilol (carvedilol 6.25 mg Tab) See instructions take 1 and 1/ 2 tab 2x daily Contact prescribing physician if questions or concerns Unchanged cholecalciferol (D3 1000 intl units (25 mcg) oral tablet) 1 Tablets By Mouth Every day Contact prescribing physician if questions or concer (more content not included)... Normal [facility] Ambulatory Visit Summaryon 0 03-25-2025 Ambulatory Visit Summary Ambulatory Visit Summary MAXIMINO CLARKE:1955 Visit Date:03/25/2025 Ambulatory Visit Instructions Your Diagnosis Type 2 diabetes mellitus Thrombocytopenia Nonsmoker BMI 30.0-30.9,adult Your Care Team Attending Physician - Mary Ellen Dela Cruz Primary Care Physician - Mary Ellen Dela Cruz This Is Your Medications List Misc Prescription (CPap supplies) Misc Prescription (Glucose Kit) albuterol (albuterol 0.083% Inh Anne 3 mL) alfuzosin (alfuzosin 10 mg ER Tab) aspirin budesonide (Pulmicort Flexhaler 90 mcg/inh inhalation powder) carvedilol (carvedilol 12.5 mg Tab) cholecalciferol (D3 1000 intl units (25 mcg) oral tablet) esomeprazole (esomeprazole 40 mg Cap-EC) hydrochlorothiazide (hydrochlorothiazide 25 mg Tab) losartan (losartan 25 mg Tab) rosuvastatin (rosuvastatin 20 mg Tab) Procedures Performed Colonoscopy (12/14/2022), Transrectal biopsy of prostate using ultrasound (US) guidance (04/29/2019), Cystoscopy w/UD (07/17/2017), Cystoscopy (04/09/2014), Colonoscopy (09/11/2013), Cardiac catheterization, Cardiac Stent, CE - Cataract extraction, Fluid Removed from Lungs, Partial colectomy. Discharge Vitals Heart Rate (Peripheral) 57 Blood Pressure 116/78 Height 174 cm Height 69 in Weight 93.3 kg Weight 205.691 lb BMI 30.82 What to do next Scheduled Follow-Up Appointments Monday 10:45 AM EDT With: Connor DHALIWAL, Letty Argueta Where: [facility] [address] [place] [address] [place] [address]- Monday 9:40 AM EDT With: Mary Ellen Dela Cruz Where: [address] [address] 2024 9:30 AM EST With: Where: [address] [address]24 10:20 AM EST With: Mary Ellen Dela Cruz Where: [facility] [address] [address]25 9:30 AM EST With: Where: [facility] [address] [place] [address] [place] [address]- 2025 9:40 AM EST With: JONNIE ESTRELLA PA-C Where: [facility] [address] [facility] [place] [address]- Medications What How Much When Why Instructions New Mis Prescription (Glucose Kit) See instructions Type 2 diabetes mellitus Thrombocytopenia Nonsmoker BMI 30.0-30.9,adult Glucose meter. Include autolet, matching test strips, lancets, & alcohol wipes, #100 or as allowed by insurance; DX: E11.9 Pickup at [facility] #[id number] Unchanged albuterol (albuterol 0.083% Inh Anne 3 mL) 3 Milliliter Nebulized inhalation (aerosol) Every 6 hours Unchanged alfuzosin (alfuzosin 10 mg ER Tab) 1 Tablets By Mouth Every day Unchanged aspirin 81 Milligram Chewed Every day Unchanged budesonide (Pulmicort Flexhaler 90 mcg/ inh inhalation powder) 1 Inhalation Inhalation 2 times a day Wellness examination Chronic obstructive pulmonary disease Fatigue Hypertension Prostate cancer screening BMI 31.0-31.9,adult Non-smoker Unchanged carvedilol (carvedilol 12.5 mg Tab) See instructions TAKE 1 TABLET BY MOUTH TWICE DAILY Unchanged cholecalciferol (D3 1000 intl units (25 mcg) oral tablet) 1 Tablets By Mouth Every day Unchanged esomeprazole (esomeprazole 40 mg Cap-EC) See instructions TAKE 1 CAPSULE BY MOUTH DAILY Unchanged hydrochlorothiazide (hydrochlorothiazide 25 mg Tab) 1 Tablets Unchanged losartan (losartan 25 mg Tab) 1 Tablets Unchanged Misc Prescription (CPap supplies) See instructions Use for Sleep apnea Unchanged rosuvastatin (rosuvastatin 20 mg Tab) 1 Tablets By Mouth Every day Pharmacy Information [id number]: [address], [place] [id number] [phone] Allergies No Known Medication Allergies Problems Ongoing [...] otitis media Sinusitis Sleep apnea Sore throat Thrombocytopenia Type 2 diabetes mellitus Urging to urinate Weak urinary stream Wellness examination Historical - Any problem that you are no longer receiving treatment for. Anti (more content not included)... Normal [facility] Medicine Office/Clini c Noteon 03-25-2025 Family Medicine Office/Clinic Note Family Medicine Office/Clinic Note Chief Complaint Lab review HPI Staff Patient is a 70 year old male presenting to go over lab results Concerns: no Refills: History of Present Illness pt presents today to go over lab results Physical Exam Vitals & Measurements HR: 57(Peripheral) BP: 116/78 SpO2: 97% HT: 174 cm HT: 69 in WT: 93.3 kg WT: 205.691 lb BMI: 30.82 General: alert, no acute distress ENMT: oral mucosa moist, no pharyngeal erythema or exudate Cardiovascular: regular rate and rhythm, normal peripheral perfusion Respiratory: Lungs CTA, respirations non labored Extremities: no deformity, no trauma Neurological: oriented x 4, LOC appropriate for age, CN II-XII intact, motor strength equal & normal bilaterally, speech normal Assessment/Plan 1. Type 2 diabetes mellitus (E11.9: Type 2 diabetes mellitus without complications) Pt presents today to go over recent lab results. HGBA1C is 6.2. discussed making dietary changes. will send referral to [facility] diabetic education. pt admits that he likes to eat sweets after his meals. will send in glucose monitor. he will check it once a day and keep a log for me. He will return in 3 months for follow up HGBA1C. will not start metformin at this time. he would like to make dietary changes first. Ordered: [facility] Prescription, Glucose Kit, See Instructions, 1 EA, 0, Glucose meter. Include autolet, matching test strips, lancets, & alcohol wipes, #100 or as allowed by insurance; DX: E11.9, [facility] #[id number], Supply, 174, cm, 03/25/25 8:43:00 EDT, Height/Length Dosin... 2. Thrombocytopenia (D69.6: Thrombocytopenia, unspecified) managed by Dr. Jenkins. they will check platelets monthly Ordered: Misc Prescription, Glucose Kit, See Instructions, 1 EA, 0, Glucose meter. Include autolet, matching test strips, lancets, & alcohol wipes, #100 or as allowed by insurance; DX: E11.9, [facility] #[id number], Supply, 174, cm, 03/25/25 8:43:00 EDT, Height/Length Dosin... 3. Nonsmoker (Z78.9: Other specified health status) continue not smoking Ordered: Misc Prescription, Glucose Kit, See Instructions, 1 EA, 0, Glucose meter. Include autolet, matching test strips, lancets, & alcohol wipes, #100 or as allowed by insurance; DX: E11.9, [facility] #[id number], Supply, 174, cm, 03/25/25 8:43:00 EDT, Height/Length Dosin... 1126F Pain severity quantified; no pain present Current tobacco non-user 1036F Medication list documented in medical record 1159F Most recent diastolic blood pressure <80 mm Hg 3078F Systolic BP <130 mm Hg (Most Recent) 3074F 4. BMI 30.0-30.9,adult (Z68.30: Body mass index [BMI] 30.0-30.9, adult) BMI education Ordered: Misc Prescription, Glucose Kit, See Instructions, 1 EA, 0, Glucose meter. Include autolet, matching test strips, lancets, & alcohol wipes, #100 or as allowed by insurance; DX: E11.9, [facility] #[id number], Supply, 174, cm, 03/25/25 8:43:00 EDT, Height/Length Dosin... Follow-up No qualifying data available Problem List/Past Medical History Ongoing Benign prostatic hypertrophy with outflow obstruction BMI 31.0-31.9,adult Cholelithiases Chronic fatigue syndrome Chronic obstructive pulmonary disease Coronary artery disease Cough ED (erectile dysfunction) Emphysema of lung Fatigue Gallstones Gross hematuria Hyperlipidemia Hypertension Interstitial pulmonary fibrosis Legionnaire's disease Low testosterone Nocturia Pancreas cyst Prostate cancer screening Rectal bleeding Sleep apnea Thrombocytopenia Type 2 diabetes mellitus Historical Abdominal pain Anticoagulated Elevated PSA Fluid level behind tympanic membrane of both ears Headache Hematochezia Right otitis media Sinusitis Sore throat Urging to urinate Weak urinary stream Wellness examination Procedure/Surgical History Colonoscopy (12/14/2022), Transrectal biopsy of [...] mg, Chewed, Daily carvedilol 12.5 mg Tab, See Instructions CPap supplies, See Instructions, 1 refills D3 1000 intl units (25 mcg) oral tablet, 25 mcg= 1 tab(s), Oral, Daily esomeprazole 40 mg Cap-EC, See Instructions Glucose Kit, See Instructions hydrochlorothiazide 25 mg Tab, 25 mg= 1 tab(s) losartan 25 mg Tab, 25 mg= 1 tab(s) Pulmicort Flexhaler 90 mcg/inh inhalation powder, 1 inh, Inhalation, BID, 11 refills rosuvastatin 20 mg Tab, 20 mg= 1 tab(s), Oral, Daily Allergies No Known Medication Allergies Social History Alcohol - Denies Alcohol Use, 04/25/2019 Never., 10/07/2024 Substance Abuse - Denies Substance Abuse, 11/22/2022 Never., 10/07/19 (more content not included)... Normal [facility] Comment on above: Result Comment: Elec tronically Signed By: Mary Ellen Dela Cruz\.br\Date and Time Signed: 03/25/25 09:18 EDT Ambulatory Visit Summaryon 0 03-20-2025 Ambulatory Visit Summary Ambulatory Visit Summary MAXIMINO CLARKE :1955 Visit Date:03/20/2025 Ambulatory Visit Instructions Your Diagnosis Hyperlipidemia Hypertension Prostate cancer screening Non-smoker BMI 30.0-30.9,adult Your Care Team Attending Physician - Mary Ellen Dela Cruz Primary Care Physician - Mary Ellen Dela Cruz This Is Your Medications List Misc Prescription (CPap supplies) albuterol (albuterol 0.083% Inh Anne 3 mL) alfuzosin (alfuzosin 10 mg ER Tab) aspirin budesonide (Pulmicort Flexhaler 90 mcg/inh inhalation powder) carvedilol (carvedilol 12.5 mg Tab) cholecalciferol (D3 1000 intl units (25 mcg) oral tablet) esomeprazole (esomeprazole 40 mg Cap-EC) hydrochlorothiazide (hydrochlorothiazide 25 mg Tab) losartan (losartan 25 mg Tab) rosuvastatin (rosuvastatin 20 mg Tab) Procedures Performed Colonoscopy (12/14/2022), Transrectal biopsy of prostate using ultrasound (US) guidance (04/29/2019), Cystoscopy w/UD (07/17/2017), Cystoscopy (04/09/2014), Colonoscopy (09/11/2013), Cardiac catheterization, Cardiac Stent, CE - Cataract extraction, Fluid Removed from Lungs, Partial colectomy. Discharge Vitals Heart Rate (Peripheral) 62 Blood Pressure 128/86 Height 174.0 cm Height 69 in Weight 93.6 kg Weight 206.352 lb BMI 30.92 What to do next Scheduled Follow-Up Appointments Monday 10:45 AM EDT With: Connor DHALIWAL, Letty Argueta Where: [facility] [address] [place] [address] Ave [address] [place] [address] 2024 9:30 AM EST With: Where: [address] [address] 2024 10:20 AM EST With: Mary Ellen Dela Cruz Where: [address] [place] [address] 2025 9:30 AM EST With: Where: [facility] [address] [place] [address] [place] [address]- 2025 9:40 AM EST With: SAMEER DUNHAM, JONNIE Reyes Where: [facility] [address] [place] [address] [place] [address]- Medications What How Much When Why Instructions Unchanged albuterol (albuterol 0.083% Inh Anne 3 mL) 3 Milliliter Nebulized inhalation (aerosol) Every 6 hours Unchanged alfuzosin (alfuzosin 10 mg ER Tab) 1 Tablets By Mouth Every day Unchanged aspirin 81 Milligram Chewed Every day Unchanged budesonide (Pulmicort Flexhaler 90 mcg/ inh inhalation powder) 1 Inhalation Inhalation 2 times a day Wellness examination Chronic obstructive pulmonary disease Fatigue Hypertension Prostate cancer screening BMI 31.0-31.9,adult Non-smoker Unchanged carvedilol (carvedilol 12.5 mg Tab) See instructions TAKE 1 TABLET BY MOUTH TWICE DAILY Unchanged cholecalciferol (D3 1000 intl units (25 mcg) oral tablet) 1 Tablets By Mouth Every day Unchanged esomeprazole (esomeprazole 40 mg Cap-EC) See instructions TAKE 1 CAPSULE BY MOUTH DAILY Unchanged hydrochlorothiazide (hydrochlorothiazide 25 mg Tab) 1 Tablets Unchanged losartan (losartan 25 mg Tab) 1 Tablets Unchanged Misc Prescription (CPap supplies) See instructions Use for Sleep apnea Unchanged rosuvastatin (rosuvastatin 20 mg Tab) 1 Tablets By Mouth Every day Allergies No Known Medication Allergies Problems Ongoing [...] for choosing us for your care. Normal [facility] CBC w/ Auto Diffon 5 Basophil Absolute 0.0 E9/L Normal 0.0-0.2 [facility] Comment on above: Performed By: #### 2 [id number] #### [facility] [address] [place] [address] Basophils/100 WBC (Bld) 0.7 % Normal 0.0-2.0 [facility] Comment on above: Performed By: #### 2 [id number] #### [facility] [address] [place] [address] Eos Absolute 0.2 E9/L Normal 0.0-0.5 [facility] Comment on above: Performed By: #### 2 [id number] #### [facility] [address] [place] [address] Eosinophils/100 WBC (Bld) 4.2 % Normal 0.0-8.0 [facility] Comment on above: Performed By: #### 2 [id number] #### [facility] [address] [place] [address] Erythrocyte distribution width (RBC) [Ratio] 13.8 % Normal 10.9-14.2 [facility] Comment on above: Performed By: #### 2 [id number] #### [facility] [address] [place] [address] Hematocrit (Bld) [Volume fraction] 43.6 % Normal 37.7-49.0 [facility] Comment on above: Performed By: #### 2 [id number] #### [facility] [address] [place] [address] Hemoglobin (Bld) [Mass/Vol] 14.2 g/dL Normal 13.5-17.5 [facility] Comment on above: Performed By: #### 2 [id number] #### [facility] [address] [place] [address] Lymph Absolute 1.3 E9/L Normal 1.0-4.0 [facility] Comment on above: Performed By: #### 2 [id number] #### [facility] [address] [place] [address] Lymphocytes/100 WBC (Bld) 32.9 % Normal 14.0-50.0 [facility] Comment on above: Performed By: #### 2 [id number] #### [facility] [address] [place] [address] MCH (RBC) [Entitic mass] 29.4 pg Normal 27.0-34.0 [facility] Comment on above: Performed By: #### 2 [id number] #### [facility] [address] [place] [address] MCHC (RBC) [Mass/Vol] 32.5 g/dL Normal 31.4-36.0 [facility] Comment on above: Performed By: #### 2 [id number] #### [facility] [address] [place] [address] MCV (RBC) [Entitic vol] 90.5 fL Normal 80.0-100.0 [facility] Comment on above: Performed By: #### 2 [id number] #### [facility] [address] [place] [address] [place] Absolute 0.5 E9/L Normal 0.2-1.0 [facility] Comment on above: Performed By: #### 2 [id number] #### [facility] [address] [place] [address] Monocytes/100 WBC (Bld) 13.3 % Normal 4.0-14.0 [facility] Comment on above: Performed By: #### 2 [id number] #### [facility] [address] [place] [address] Neutro Absolute 2.0 E9/L Normal 2.0-7.5 [facility] Comment on above: Performed By: #### 2 [id number] #### [facility] [address] [place] [address] Neutro Auto 48.9 % Normal 36.0-75.0 [facility] Comment on above: Performed By: #### 2 [id number] #### [facility] [address] [place] [address] Platelet 86.0 E9/L Low 150.0-500.0 [facility] Comment on above: Performed By: #### 2 [id number] #### [facility] [address] [place] [address] Platelet mean volume (Bld) [Entitic vol] 11.2 fL High 6.4-10.8 [facility] Comment on above: Performed By: #### 2 [id number] #### [facility] [address] [place] [address] RBC 4.8 E12/L Normal 4.3-5.9 [facility] Comment on above: Performed By: #### 2 [id number] #### [facility] [address] [place] [address] WBC 4.1 E9/L Normal 4.0-11.0 [facility] Comment on above: Performed By: #### 2 [id number] #### [facility] [address] [place] [address] CHEMISTRYOrdered By: SYSTEM SYSTEM on 03-20-2025 Albumin [Mass/Vol] 4.0 g/dL Normal 3.3 - 5.0 gm/dL [facility] Albumin/Globulin [Mass ratio] 1.4 {ratio} Normal 1.1 - 2.2 [facility] ALP [Catalytic activity/Vol] 58 [iU]/d Normal 21 - 98 Int._Unit/L [facility] ALT No additional P-5'-P [Catalytic activity/Vol] 18 [iU]/d Normal 6 - 46 Int._Unit/L [facility] Anion gap [Moles/Vol] 9 mmol/L Normal 6 - 16 mEq/L [facility] AST [Catalytic activity/Vol] 19 [iU]/d Normal 5 - 43 Int._Unit/L [facility] Bilirubin [Mass/Vol] 0.5 mg/dL Normal 0.0 - 1 .1 mg/dL [facility] Calcium [Mass/Vol] 8.9 mg/dL Normal 8.9 - 11. 1 mg/dL [facility] Chloride [Moles/Vol] 111 mmol/L Normal 101 - 1 11 mmol/L [facility] Cholesterol [Mass/Vol] 107 mg/dL Low 120 - 200 mg/dL [facility] Cholesterol in HDL [Mass/Vol] 33 mg/dL Invalid Interpretation Code [facility] Comment on above: Result Comment: '>= 60 LOW RISK' '<= 40 HIGH RISK' Cholesterol in LDL [Mass/Vol] 63 mg/dL Normal <=129mg/dL [facility] Cholesterol in VLDL [Mass/Vol] 19 mg/dL Normal 7 - 40 mg/dL [facility] CO2 [Moles/Vol] 24 mmol/L Normal 21 - 31 mmol/L [facility] Creatinine [Mass/Vol] 1.2 mg/dL Normal 0.5 - 1.3 mg/dL [facility] GFR/1.73 sq M.predicted MDRD (S/P/Bld) [Vol rate/Area] 66 mL/min/1.73 m2 Normal >=59mL/min/ 1.73 m2 [facility] Globulin (S) [Mass/Vol] 2.9 g/dL Normal 1.4 - 4.0 gm/dL [facility] Glucose [Mass/Vol] 101 mg/dL Normal 55 - 199 mg/dL [facility] Potassium [Moles/Vol] 3.8 mmol/L Normal 3.5 - 5.3 mmol/L [facility] Prostate specific Ag [Mass/Vol] 1.2 ng/mL Normal 0.1 - 3.5 ng/mL [facility] Comment on above: Interpretive Data: T he concentration of PSA determined by different manufacturers can vary due to differences in assay methods and reagent specificity. Values obtained from different assay methods cannot be used interchangeably. The methodology used for this result was chemiluminescence using [employer]'s Access Hybritech PSA reagent. Protein [Mass/Vol] 6.9 g/dL Normal 6.0 - 7.8 gm/dL [facility] Sodium [Moles/Vol] 140 mmol/L Normal 135 - 145 mmol/L [facility] Triglyceride [Mass/Vol] 96 mg/dL Normal <=149mg/dL [facility] TSH Qn 0.67 m[IU]/L Normal 0.34 - 5.60 mcIU/mL [facility] Urea nitrogen [Mass/Vol] 13 mg/dL Normal 5 - 21 mg/dL [facility] Urea nitrogen/Creatinine [Mass ratio] 11 mg/mg Normal 10 - 20 [facility] CHEMISTRYOrdered By: Melonie Erazo on 03-20-2025 HbA1c (Bld) [Mass fraction] 6.2 % High <=5.9% [facility] [place] [facility] CMPon 03-20-2025 Albumin [Mass/Vol] 4.0 g/dL Normal 3.3-5.0 [facility] Comment on above: Performed By: #### 2 [id number] #### [facility] [address] [place] [address] Albumin/Globulin [Mass ratio] 1.4 {ratio} Normal 1.1-2.2 [facility] Comment on above: Performed By: #### 2 [id number] #### [facility] [address] [place] [address] Alk Phos 58 Int._Unit/L Normal 21-98 [facility] Comment on above: Performed By: #### 2 [id number] #### [facility] [address] [place] [address] ALT 18 Int._Unit/L Normal 6-46 [facility] Comment on above: Performed By: #### 2 259254 #### [facility] [address] [place] [address] Anion gap [Moles/Vol] 9 mmol/L Normal 6-16 [facility] Comment on above: Performed By: #### 2 [id number] #### [facility] [address] [place] [address] AST 19 Int._Unit/L Normal 5-43 [facility] Comment on above: Performed By: #### 2 [id number] #### [facility] [address] [place] [address] Bili Total 0.5 mg/dL Normal 0.0-1.1 [facility] Comment on above: Performed By: #### 2 [id number] #### [facility] [address] [place] [address] BUN/Creat Ratio 11 No Units Normal 10-20 [facility] Comment on above: Performed By: #### 2 [id number] #### [facility] [address] [place] [address] Calcium [Mass/Vol] 8.9 mg/dL Normal 8.9-11.1 [facility] Comment on above: Performed By: #### 2 [id number] #### [facility] [address] [place] [address] Chloride [Moles/Vol] 111 mmol/L Normal 101-111 [facility] Comment on above: Performed By: #### 2 363587 #### [facility] [address] [place] [address] CO2 [Moles/Vol] 24 mmol/L Normal 21-31 [facility] Comment on above: Performed By: #### 2 [id number] #### [facility] [address] [place] [address] Creatinine [Mass/Vol] 1.2 mg/dL Normal 0.5-1.3 [facility] Comment on above: Performed By: #### 2 [id number] #### [facility] [address] [place] [address] Globulin (S) [Mass/Vol] 2.9 g/dL Normal 1.4-4.0 [facility] Comment on above: Performed By: #### 2 911404 #### [facility] [address] [place] [address] Glucose [Mass/Vol] 101 mg/dL Normal 55-199 [facility] Comment on above: Performed By: #### 2 [id number] #### [facility] [address] [place] [address] Potassium [Moles/Vol] 3.8 mmol/L Normal 3.5-5.3 [facility] Comment on above: Performed By: #### 2 104543 #### [facility] [address] [place] [address] Protein [Mass/Vol] 6.9 g/dL Normal 6.0-7.8 [facility] Comment on above: Performed By: #### 2 370029 #### [facility] [address] [place] [address] Sodium [Moles/Vol] 140 mmol/L Normal 135-145 [facility] Comment on above: Performed By: #### 2 [id number] #### [facility] [address] [place] [address] Urea nitrogen [Mass/Vol] 13 mg/dL Normal 5-21 [facility] Comment on above: Performed By: #### 2 [id number] #### [facility] [address] [place] [address] Family Medicine Office/Clini c Noteon 03-20-2025 Family Medicine Office/Clinic Note Family Medicine Office/Clinic Note Chief Complaint wellness/chronic f/u HPI Staff Patient is a 70 year old male presenting for chronic f/u, wellness Concerns: wants to have blood work done Refills: Patient is here for follow up on hypertension. How often are you checking your blood pressure? Couple times a week What are your average readings? variable but improvement Are you compliant with your diet? yes Do you exercise? yes Are you compliant with your medications?yes Difficulty affording your medications? no Do you have side effects from the medication? None Do you have any of the following symptoms? Chest Pain? no Palpitations? no MARQUEZ/SOB? no Headache? no Peripheral Edema? no Light Headedness? no History of Present Illness pt presents today for 6 month follow up. needs annual labs Review of Systems PHQ Score Initial Depression Screen Score: 1 SCORE Physical Exam Vitals & Measurements HR: 62(Peripheral) BP: 128/86 SpO2: 95% HT: 174.0 cm HT: 69 in WT: 93.6 kg WT: 206.352 lb BMI: 30.92 General: alert, no acute distress ENMT: oral mucosa moist, no pharyngeal erythema or exudate Cardiovascular: regular rate and rhythm, normal peripheral perfusion Respiratory: Lungs CTA, respirations non labored Extremities: no deformity, no trauma Neurological: oriented x 4, LOC appropriate for age, CN II-XII intact, motor strength equal & normal bilaterally, speech normal Assessment/Plan 1. Hyperlipidemia (E78.5: Hyperlipidemia, unspecified) Lipid panel ordered. pt denies needs at this time. RTC 6 months for AMW visi Ordered: CBC w/ Auto Diff Comprehensive Metabolic Panel HgbA1c Lipid Panel PSA Screen, Total Thyroid Stimulating Hormone 2. Hypertension (I10: Essential (primary) hypertension) BP at goal today Ordered: CBC w/ Auto Diff Comprehensive Metabolic Panel HgbA1c Lipid Panel PSA Screen, Total Thyroid Stimulating Hormone 3. Prostate cancer screening (Z12.5: Encounter for screening for malignant neoplasm of prostate) psa ordered Ordered: CBC w/ Auto Diff Comprehensive Metabolic Panel HgbA1c Lipid Panel PSA Screen, Total Thyroid Stimulating Hormone 4. Non-smoker (Z78.9: Other specified health status) continue not smoking Ordered: 1126F Pain severity quantified; no pain present Current tobacco non-user 1036F HgbA1c Medication list documented in medical record 1159F Most recent diastolic blood pressure 80-89 mm Hg 3079F Systolic BP <130 mm Hg (Most Recent) 3074F 5. BMI 30.0-30.9,adult (Z68.30: Body mass index [BMI] 30.0-30.9, adult) BMI education given Ordered: HgbA1c Follow-up No qualifying data available Problem List/Past [...] mg, Chewed, Daily carvedilol 12.5 mg Tab, See Instructions CPap supplies, See Instructions, 1 refills D3 [...] Smokeless Tobacco Use:. Household tobacco concerns: No., 03/20/2025 Never (less than 100 in lifetime) Tobacco Use:., 10/07/2024 Family History Anxiety: Mother. Heart disease: Sister. Hypertension: Mother. Pancreatic cancer: Mother. Immunizations Vaccine Date Status influenza virus vaccine, inactivated (more content not included)... Normal [facility] Comment on above: Result Comment: Elec tronically Signed By: Mary Ellen Dela Cruz\.br\Date and Time Signed: 03/20/25 11:02 EDT HEMATOLOGYOrdered By: SYSTEM SYSTEM on 03-20-2025 Basophils/100 WBC (Bld) 0.7 % Normal 0.0 - 2.0 % [facility] Basophils/Leukocytes Auto (Bld) [Pure # fraction] 0.0 E9/L Normal 0.0 - 0.2 E9/L [facility] Eosinophils (Bld) [#/Vol] 0.2 E9/L Normal 0.0 - 0.5 E9/L [facility] Eosinophils/100 WBC (Bld) 4.2 % Normal 0.0 - 8.0 % [facility] Erythrocyte distribution width (RBC) [Ratio] 13.8 % Normal 10.9 - 14.2 % [facility] Hematocrit (Bld) [Volume fraction] 43.6 % Normal 37.7 - 49.0 % [facility] Hemoglobin (Bld) [Mass/Vol] 14.2 g/dL Normal 13.5 - 17.5 gm/dL [facility] Lymphocytes (Bld) [#/Vol] 1.3 E9/L Normal 1.0 - 4.0 E9/L [facility] Lymphocytes/100 WBC (Bld) 32.9 % Normal 14.0 - 50.0 % [facility] MCH (RBC) [Entitic mass] 29.4 pg Normal 27.0 - 34.0 pg [facility] MCHC (RBC) [Mass/Vol] 32.5 g/dL Normal 31.4 - 36.0 gm/dL [facility] MCV (RBC) [Entitic vol] 90.5 fL Normal 80.0 - 100.0 fL [facility] Monocytes (Bld) [#/Vol] 0.5 E9/L Normal 0.2 - 1.0 E9/L [facility] Monocytes/100 WBC (Bld) 13.3 % Normal 4.0 - 14.0 % [facility] Neutrophils (Bld) [#/Vol] 2.0 E9/L Normal 2.0 - 7.5 E9/L [facility] Neutrophils/100 WBC (Bld) 48.9 % Normal 36.0 - 75.0 % [facility] Platelet mean volume (Bld) [Entitic vol] 11.2 fL High 6.4 - 10.8 fL [facility] Platelets (Bld) [#/Vol] 86.0 E9/L Low 150.0 - 500.0 E9/L [facility] RBC (Bld) [#/Vol] 4.8 E12/L Normal 4.3 - 5.9 E12/L [facility] WBC corrected for nucl RBC Auto (Bld) [#/Vol] 4.1 E9/L Normal 4.0 - 11.0 E9/L [facility] [id number] 03-20-2025 HbA1c (Bld) [Mass fraction] 6.2 % High <=5.9 [facility] Comment on above: Performed By: #### 7 [id number] #### [facility] [address] [place] [address] Lipid Panelon 03-20-2025 Cholesterol [Mass/Vol] 107 mg/dL Low 120-200 [facility] Comment on above: Performed By: #### 2 [id number] #### [facility] [address] [place] [address] Cholesterol in HDL [Mass/Vol] 33 mg/dL Invalid Interpretation Code [facility] Comment on above: Result Comment: '>= 60 LOW RISK' '<= 40 HIGH RISK' Performed By: #### 2 [id number] #### [facility] [address] [place] [address] Cholesterol in LDL [Mass/Vol] 63 mg/dL Normal <=129 [facility] Comment on above: Performed By: #### 2 [id number] #### [facility] [address] [place] [address] Cholesterol in VLDL [Mass/Vol] 19 mg/dL Normal 7-40 [facility] Comment on above: Performed By: #### 2 [id number] #### [facility] [address] [place] [address] Triglyceride [Mass/Vol] 96 mg/dL Normal <=149 [facility] Comment on above: Performed By: #### 2 [id number] #### [facility] [address] [place] [address] PSA Screen, Totalon 03-20-20 25 PSA Scrn Tot. 1.2 ng/mL Normal 0.1-3.5 [facility] Comment on above: Result Comment: The concentration of PSA determined by different manufacturers can vary due to differences in assay methods and reagent specificity. Values obtained from different assay methods cannot be used interchangeably. The methodology used for this result was chemiluminescence using [employer]'s Access Hybritech PSA reagent. Performed By: #### 1 [id number] #### [facility] [address] [place] [address] TSHon 03-20-2025 TSH Qn 0.67 m[IU]/L Normal 0.34-5.60 [facility] Comment on above: Performed By: #### 2 [id number] #### [facility] [address] [place] [address] eGFRon 03-20-2025 eGFR 66 mL/min/1.73 m2 Normal >=59 [facility] Comment on above: Performed By: #### 1 [id number] #### [facility] [address] [place] [address] CHEMISTRYOrdered By: SYSTEM SYSTEM on 12-03-2024 Prostate [...] for this result was chemiluminescence using [employer]'s Access Hybr[employer]ch PSA reagent. PSA Totalon 12-03-2024 Prostate specific Ag [Mass/Vol] 1.1 ng/mL Normal 0.1-3.5 [facility] Comment on above: Result Comment: The concentration of PSA determined by different manufacturers can vary due to differences in assay methods and reagent specificity. Values obtained from different assay methods cannot be used interchangeably. The methodology used for this result was chemiluminescence using [employer] Access Hybritech PSA reagent. Performed By: #### 1 [id number] #### [facility] [address] [place] [address] Urology Office/Clinic Noteon 12-03-2024 Urology Office/Clinic Note Urology Office/Clinic Note Chief Complaint 1yr f/u w/ PSA HPI Staff 1 year f/u with PSA. No current PSA on Clinisync. Last PSA noted was 07/14/23 and was 1.4. Had been higher previous to that. Denies all urinary symptoms. Dx: BPH with outflow obstruction. *[id number] ER qd - needs refills Review of [...] changes: adding an additional agent such as finasteride/dutasteride I discussed with the patient the different surgical treatment options for bladder outlet obstruction including TURP, Rezum, and Urolift. The patient prefers to continue the BPH medications at this time. Pt prefers to continue current regimen with no changes at this time. Risks/benefits/side effects discussed. Refills provided. Ordered: Lab Specimen Collect 61385 PSA Total Urnls Dip Stick Auto w/o Microscopy POC 25932 2. Elevated PSA (R97.20: Elevated prostate specific [...] Daily, # 90 tab(s), Refills(s) 3, Pharmacy: [facility] #[id number], 174, cm, 12/03/24 11:22:00 EST, Height/Length Dosing, 94, kg, 12/03/24 11:22:00 EST, Weight Dosing Follow-up With When Contact Information JONNIE ESTRELLA PA-C, URL In 1 year [address] [place] [address] Additional Instructions: Patient Education Benign [...] vaccine, inactivate (more content not included)... Normal [facility] Comment on above: Result Comment: Elec tronically Signed By: JONNIE ESTRELLA PA-C.dipti\Date and Time Signed: 12/03/24 12:20 EST Erythrocyte distribution wid th Auto (RBC) [Ratio]on 11-15-2024 Erythrocyte distribution width (RBC) [Ratio] Erythrocyte distribution width [Ratio] by Automated count 11.0-15.0 [facility] Estimated glomerular filtrat ion rate (GFR) non- Americanon 11-15-2024 GFR/1.73 sq M.predicted among non-blacks MDRD (S/P/Bld) [Vol rate/Area] Estimated glomerular filtration rate (GFR) non- Low >=60 mL/min/1.73 m 2 [facility] Hematocrit Auto (Bld) [Volum e fraction]on 11-15-2024 Hematocrit (Bld) [Volume fraction] Hematocrit [Volume Fraction] of Blood by Automated count 42.0-54.0 [facility] Hemoglobin [Mass/volume] in Bloodon 11-15-2024 Hemoglobin (Bld) [Mass/Vol] Hemoglobin [Mass/volume] in Blood 14.0-18.0 [facility] Laboratory - Chemistry and C hemistry - challengeon 11-15-2024 Albumin [Mass/Vol] 3.6 g/dL 3.4-5.0 [facility] Calcium [Mass/Vol] 8.8 mg/dL 8.5-10.1 [facility] Chloride [Moles/Vol] 106 mmol/L 98-107 [facility] CO2 [Moles/Vol] 28.5 mmol/L 21.0-32.0 [facility] Creatinine [Mass/Vol] 1.40 mg/dL High 0.70-1.30 [facility] GFR/1.73 sq M.predicted MDRD (S/P/Bld) [Vol rate/Area] mL/min/{1.73_m2} >=60 mL/min/1.73 m 2 [facility] Glucose [Mass/Vol] 89 mg/dL 74-106 [facility] Magnesium [Mass/Vol] 1.9 mg/dL 1.8-2.4 [facility] Potassium [Moles/Vol] 3.7 mmol/L 3.5-5.1 [facility] Sodium [Moles/Vol] 142 mmol/L 136-145 [facility] Urate [Mass/Vol] 6.1 mg/dL 3.5-7.2 [facility] Urea nitrogen [Mass/Vol] 14.0 mg/dL 7.0-18.0 [facility] Urea nitrogen/Creatinine [Mass ratio] 10.0 mg/mg [facility] Laboratory - Urinalysison Protein (U) [Mass/Vol] 16.0 mg/dL High <=11.9 [facility] Leukocytes [#/volume] correc nori for nucleated erythrocytes in Blood by Automated counon 11-15-2024 WBC corrected for nucl RBC Auto (Bld) [#/Vol] Leukocytes [#/volume] corrected for nucleated erythrocytes in Blood by Automated coun 4.0-11.0 [facility] MCH Auto (RBC) [Entitic mass ]on 11-15-2024 MCH (RBC) [Entitic mass] MCH [Entitic mass] by Automated count 25.9-34.0 [facility] MCHC Auto (RBC) [Mass/Vol]on 11-15-2024 MCHC (RBC) [Mass/Vol] MCHC [Mass/volume] by Automated count 29.9-35.2 [facility] MCV Auto (RBC) [Entitic vol] on 11-15-2024 MCV (RBC) [Entitic vol] MCV [Entitic volume] by Automated count 80.0-94.0 [facility] No Panel Informationon 11-15 25-Hydroxy Vitamin D Total 46.3 ng/mL [facility] Comment on above: <20 ng/mL Vit D defi cient20-<30 ng/mL Vit D qylwagxtakcd39-710 ng/mL Vit D sufficient>100 ng/mL Potential Toxicity Parathyroid Hormone (Intact) 48 pg/mL 15-65 [facility] Comment on above: Performed at: - L [address] [id number] Director: Aryan Craft PhD, Phone: [phone] Phosphorus Level 3.5 mg/dL 2.6-4.7 [facility] Urine Random Creatinine 130.37 mg/dL 20.00-300.0 0 [facility] Platelet mean volume Auto (B ld) [Entitic vol]on 11-15-2024 Platelet mean volume (Bld) [Entitic vol] Platelet mean volume [Entitic volume] in Blood by Automated count 9.5-13.5 [facility] Platelets Auto (Bld) [#/Vol] on 11-15-2024 Platelets (Bld) [#/Vol] Platelets [#/volume] in Blood by Automated count Low 150-450 [facility] RBC Auto (Bld) [#/Vol]on RBC (Bld) [#/Vol] Erythrocytes [#/volu me] in Blood by Automated count 4.70-6.10 [facility] Serum or plasma anion gap de terminationon 11-15-2024 Anion gap [Moles/Vol] Serum or plasma anion gap determination [facility] Urine protein/creatinine rat ioon 11-15-2024 Protein/Creatinine (U) [Ratio] Urine protein/creatinine ratio [facility] Office Visiton 11-13-2024 Follow-up visit [id number] Padmini Clarke 1955 M Date Provider Department Center 11/13/2024 [facility] Family History Problem Relation Age of Onset Hypertension Mother Cancer Mother Family Status - Relation Status Age at Mother Level of Service:26592 MO OFFICE/OUTPATIENT ESTABLISHED LOW MDM 20 MIN Normal [facility] Ambulatory Visit Summaryon 0 10-07-2024 Ambulatory Visit Summary Ambulatory Visit Summary MAXIMINO CLARKE :1955 Visit Date:10/07/2024 Ambulatory Visit Instructions Your Diagnosis Sinusitis Fluid level behind tympanic membrane of both ears Non-smoker BMI 31.0-31.9,adult Exogenous obesity Your Care Team Attending Physician - Mary Ellen Dela Cruz Primary Care Physician - Mary Ellen Dela Cruz This Is Your Medications List [facility] Prescription (CPap supplies) albuterol (albuterol 0.083% Inh Anne 3 mL) alfuzosin (alfuzosin 10 mg ER Tab) amoxicillin-clavulanate (amoxicillin-clavulanate 875 mg-125 mg Tab) aspirin budesonide (Pulmicort [...] DHALIWAL, Jim More Where: [facility] [address] [address]- Medications What How Much When Why Instructions Unchanged albuterol (albuterol 0.083% Inh Anne 3 mL) 3 Milliliter Nebulized inhalation (aerosol) Every 6 hours Unchanged alfuzosin (alfuzosin 10 mg ER Tab) 1 Tablets By Mouth Every day Unchanged amoxicillin-clavulanate (amoxicillin-clavulanate 875 mg-125 mg Tab) 1 Tablets By Mouth Every 12 hours Duration: 10 [id number] Unchanged aspirin 81 Milligram Chewed Every day [...] Tablets By Mouth Every day Pharm[facility] Information [id number]: [address] [place], [place] [phone] Medications and Immunizations Administered Given Kenalog-40, 60 [...] for choosing us for your care. Normal [facility] Family Medicine Office/Clini c Noteon 10-07-2024 Family Medicine Office/Clinic Note Family Medicine Office/Clinic Note [facility] Staff Maximino is a 69 year old [...] due to excess calories) see above Orders: amoxicillin-clavulanate, 1 tab(s), Oral, q12hr for 10 day(s), 20 tab(s), Refill(s) 0, [facility] #[id number], 174, cm, 10/07/24 15:26:00 EST, Height/Length Dosing, [...] mg= 1 tab(s), Oral, Daily, 11 refills amoxicillin-clavulanate 875 mg-125 mg Tab, 1 tab(s), Oral, [...] 15:38 EST Office Visiton 05-27-2024 Follow-up visit [id number] Padmini Clarke supa Reyes 1955 M Date Provider Department [facility]/27[facility]2024 [facility] Family History Problem Relation Age of Onset Hypertension Mother Cancer Mother Family Status - Relation Status Age at Mother Level of Service:20582 MO OFFICE/OUTPATIENT ESTABLISHED MOD MDM 30 MIN Normal [facility] Surgical Pathologyon 024 Surgical Pathology Normal [facility] Comment on above: Result Comment: [facility] [address] [place] [address] Surgical Pathology Consultation Patient Name:MAXIMINO CLARKE:1955 (Age: 69)Gender:MTaken:04/30/2024eported:05/02/2024hysician(s):Surinder Escalona MD ( )Copy To: Rec. #:[id number]: #[id number] Final Pathologic Diagnosis Gastric biopsy: Mild chronic gastritis with intestinal metaplasia present. Negative for helicobacter organisms on routine H&E examination Negative for dysplasia or malignancy. Report Electronically Signed Out st/05/02/2024Lorena Bowles MD Interpretation performed at [facility], [address] [place], [address], License number: [id number]. Clinical History Pancreatic cyst, abdominal pain. 1. H pylori screen Gross Description Received in formalin, labeled VINCE, gastric biopsy are multiple pink-del angel soft tissue fragments aggregating 1.3 x 0.5 x 0.1 cm. The specimen is filtered and entirely submitted in one cassette. (1, ns, [id number] m7, ) MW mxw/04/30/2024GR Specimen(s) Received Gastric biopsy Fee Codes(s): 1; 85666 36on 04-15-2024 SARS-CoV-2 (COVID-19) RNA NIEVES+probe Ql (Unsp spec) 04/15/24@1000 Patients called stating that Maximino tested positive for COVID today, per [facility] policy he needs to wait 10 days from his positive test to be scheduled. Patient is rescheduled for 04/30/24 arriving at 0945 for a 1145 procedure with a PAT call on 04/23/24 in the am. Normal [facility] Gastroenterology Office/Clin ic Noteon 04-01-2024 [...] Abdomen: Soft, NTND Procedure Colonoscopy 12/14/22 w/Dr. Clay: POSTOPERATIVE DIAGNOSIS: Prominent rectal veins, mild sigmoid [...] 01/05/2021 R (more content not included)... Normal [facility] Comment on above: Result Comment: Elec tronically Signed By: Letty Ryan MD\.br\Date and Time Signed: 04/01/24 10:29 EDT\.br\Electronically Co-Signed By: Liliana Garcia MA\.br\Date and Time Co-Signed: 04/01/24 10:24 EDT Physician Referralon 024 Physician Referral [id number]#1.00TIFF Normal [facility] Physician Referralon 024 Physician Referral [id number]#1.00TIFF Normal [facility] RAD - CT Reporton 01-26-2024 RAD - CT Report [id number]#1.00TIFF Normal [facility] Physician Orderon 01-03-2024 Physician Order [id number]#1.00TIFF [facility] Ambulatory Visit Summaryon 0 01-02-2024 Ambulatory Visit Summary MAXIMINO CLARKE Amy :1955 Visit Date:01/02/2024 Ambulatory Visit Instructions Your Diagnosis BMI 30.0-30.9,adult Your Care Team Attending Physician - Mary Ellen Dela Cruz Primary Care Physician - Mary Ellen Dela Cruz This Is Your Medications List albuterol (albuterol 0.083% Inh Anne 3 mL) alfuzosin (alfuzosin 10 mg ER Tab) amoxicillin-clavulanate (Augmentin 875 mg oral tablet) aspirin budesonide [...] DHALIWAL, Jim More [facility] Family Medicine Office/Clini c Noteon 01-02-2024 Family [...] (COVID-19) mRNA BNT-162b2 vax 12/14/2020 Recorded Normal [facility] Comment on above: Result Comment: Elec tronically Signed By: Mary Ellen Dela Cruz\.br\Date and Time Signed: 01/02/24 11:42 EDT Physician Orderon 01-02-2024 Physician Order [id number]#1.00TIFF Normal [facility] Ambulatory Visit Summaryon 0 12-28-2023 Ambulatory Visit [...] mL) alfuzosin (alfuzosin 10 mg ER Tab) amoxicillin-clavulanate (Augmentin 875 mg oral tablet) aspirin budesonide [...] DHALIWAL, Jim More Where: [facility] [place] 12-28-2023 Consent [id number]#1.00TIFF Normal [facility] Family Medicine Office/Clini c Noteon 12-28-2023 Family [...] [BMI] 30.0-30.9, adult) bmi education complete Ordered: amoxicillin-clavulanate, = 1 tab(s), Oral, q12hr, X 7 day(s), # 14 tab(s), Refills(s) 0, Pharmacy: [facility] #[id number], 174, cm, 12/28/23 8:31:00 EDT, Height/Length Dosing, 93.3, kg, 12/28/23 8:31:00 EDT, Weight Dosing 4. Non-smoker (Z78.9: Other specified health status) continue not smoking Ordered: amoxicillin-clavulanate, = 1 tab(s), Oral, q12hr, X 7 day(s), # 14 tab(s), Refills(s) 0, Pharmacy: [facility] #[id number], 174, cm, 12/28/23 8:31:00 EDT, Height/Length Dosing, 93.3, kg, 12/28/23 8:31:00 EDT, Weight Dosing 5. Hypertension (I10: Essential (primary) hypertension) BP continues to run high. 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 he does not have any follow up appointments scheduled with cardiology and they are leaving on a cruise next week. RTC 4 weeks for BP check. Orders: carvedilol, 12.5 mg = 1 tab(s), Oral, BID, # 60 tab(s), Refills(s) 0, Pharmacy: [facility] #[id number], 174, cm, 12/28/23 8:31:00 EDT, Height/Length Dosing, [...] Recorded SARS (more content not included)... Normal [facility] Comment on above: Result Comment: Elec tronically [...] (S/P/Bld) [Vol rate/Area] 51 mL/min/1.73 m2 Low >=59mL/min/ 1.73 m2 [facility] Comment on above: [...] used for this result was chemiluminescence using [employer]'s Access Hy[employer] PSA reagent. Protein [Mass/Vol] 7.8 [...] Normal 0.0 - 8.0 % [facility] Eosinophils/Leukocyt es Auto (Bld) [Pure # fraction] 0.1 E9/L Normal 0.0 - 0.5 E9/L [facility] Lymphocytes/100 WBC (Bld) 20.2 % Normal 14.0 - 50.0 % [facility] Lymphocytes/Leukocyt es Auto (Bld) [Pure # fraction] 1.4 E9/L Normal 1.0 - 4.0 E9/L [facility] Monocytes/100 WBC (Bld) 12.3 % Normal 4.0 - 14.0 % [facility] Monocytes/Leukocytes Auto (Bld) [Pure # fraction] 0.8 E9/L Normal 0.2 - 1.0 E9/L [facility] Neutrophils/100 WBC (Bld) 65.5 % Normal 36.0 - 75.0 % [facility] Neutrophils/Leukocyt es Auto (Bld) [Pure # fraction] 4.5 E9/L [...] 5.2 E12/L Normal 4.3 - 5.9 E12/L [facility] WBC corrected for nucl RBC Auto (Bld) [#/Vol] 6.8 E9/L Normal 4.0 - 11.0 E9/L [facility] CBC AUTO DIFFon 10-11-2022 BASO # 0.0 103/ul Normal 0.0-0.1 [facility] Comment on above: Performed By: #### C #### [facility] [address] [place] [address] Dr. Anup Paez Basophils/100 WBC (Bld) 0.4 % Normal 0.2-2.0 [facility] Comment on above: Performed By: #### C BC #### [facility] [address] [place] [address] Dr. Anup Paez EO # 0.0 103/ul Normal 0.0-0.7 [facility] Comment on above: Performed By: #### C BC #### [facility] [address] [place] [address] Dr. Anup Paez Eosinophils/100 WBC (Bld) 0.1 % Critically low 0.9-7.0 [facility] Comment on above: Performed By: #### C BC #### [facility] [address] [place] [address] Dr. Anup Paez Erythrocyte distribution width (RBC) [Ratio] 13.2 % Normal 11.0-15.0 [facility] Comment on above: Performed By: #### C BC #### [facility] [address] [place] [address] Dr. Anup Paez Hematocrit (Bld) [Volume fraction] 43.2 % Normal 42.0-54.0 [facility] Comment on above: Performed By: #### C BC #### [facility] [address] [place] [address] Dr. Anup Paez Hemoglobin (Bld) [Mass/Vol] 14.7 g/dL Normal 14.0-18.0 [facility] Comment on above: Performed By: #### C BC #### [facility] [address] [place] [address] Dr. Anup Paez IG # 0.03 10e3/ul Normal 0.00-0.03 [facility] Comment on above: Performed By: #### C BC #### [facility] [address] [place] [address] Dr. Anup Paez IG % 0.4 % Normal 0.0-0.5 [facility] Comment on above: Performed By: #### C BC #### [facility] [address] [address] [address] Anup Paez LYMPH # 1.2 103/ul Normal 1.2-3.8 [facility] Comment on above: Performed By: #### C BC #### [facility] [address] [place] [address] Dr. Anup Paez Lymphocytes/100 WBC (Bld) 14.8 % Critically low 20.5-60.0 [facility] Comment on above: Performed By: #### C BC #### [facility] [address] [place] [address] Dr. Anup Paez MANUAL DIFF REQ NO Normal [facility] Comment on above: Performed By: #### C BC #### [facility] [address] [place] [address] Dr. Anup Paez MCH (RBC) [Entitic mass] 30.3 pg Normal 25.9-34.0 [facility] Comment on above: Performed By: #### C BC #### [facility] [address] [place] [address] Dr. Anup Paez MCHC (RBC) [Mass/Vol] 34.0 g/dL Normal 29.9-35.2 [facility] Comment on above: Performed By: #### C BC #### [facility] [address] [place] [address] Dr. Anup Paez MCV (RBC) [Entitic vol] 89.1 fL Normal 80.0-94.0 [facility] Comment on above: Performed By: #### C BC #### [facility] [address] [place] [address] Dr. Anup Paez MONO # 0.5 103/ul Normal 0.3-0.8 [facility] Comment on above: Performed By: #### C BC #### [facility] [address] [place] [address] Dr. Anup Paez Monocytes/100 WBC (Bld) 5.5 % Normal 1.7-12.0 [facility] Comment on above: Performed By: #### C BC #### [facility] [address] [address] [address] Anup Paez NEUT # 6.6 103/ul Critically high 1.4-6.5 [facility] Comment on above: Performed By: #### C BC #### [facility] [address] [address] [address] Anup Paez Neutrophils/100 WBC (Bld) 78.8 % Critically high 43.0-75.0 [facility] Comment on above: Performed By: #### C BC #### [facility] [address] [place] [address] Dr. Anup Paez Platelet mean volume (Bld) [Entitic vol] 11.9 fL Normal 9.5-13.5 [facility] Comment on above: Performed By: #### C BC #### [facility] [address] [place] [address] Dr. Anup Paez PLT 140 103/ul Critically low 150-450 [facility] Comment on above: Performed By: #### C BC #### [facility] [address] [place] [address] Dr. Anup Paez RBC 4.85 106/ul Normal 4.70-6.10 [facility] Comment on above: Performed By: #### C BC #### [facility] [address] [place] [address] Dr. Anup Paez WBC 8.3 103/ul Normal 4.0-11.0 [facility] Comment on above: Performed By: #### C BC #### [facility] [address] [place] [address] Dr. Anup Paez FREE T3on 10-11-2022 FREE T3 2.36 pg/mlL Normal 2.18-3.98 [facility] Comment on above: Performed By: #### F T3 #### [facility] [address] [place] [address] Dr. Anup Paez FREE T4on 10-11-2022 Free T4 [Mass/Vol] 0.97 ng/dL Normal 0.76-1.46 [facility] Comment on above: Performed By: #### F T4 #### [facility] [address] [place] [address] Dr. Anup Paez TSHon 10-11-2022 TSH 0.231 uIU/mL Critically low 0.358-3.740 [facility] Comment on above: Performed By: #### T SH #### [facility] [address] [place] [address] Dr. Anup Paez CBC AUTO DIFFon 02-19-2022 BASO # 0.1 103/ul Normal 0.0-0.1 [facility] Comment on above: Performed By: #### C BC #### [facility] [address] [place] [address] Dr. Anup Paez Basophils/100 WBC (Bld) 1.1 % Normal 0.2-2.0 [facility] Comment on above: Performed By: #### C BC #### [facility] [address] [place] [address] Dr. Anup Paez EO # 0.2 103/ul Normal 0.0-0.7 [facility] Comment on above: Performed By: #### C BC #### [facility] [address] [place] [address] Dr. Anup Paez Eosinophils/100 WBC (Bld) 4.4 % Normal 0.9-7.0 [facility] Comment on above: Performed By: #### C BC #### [facility] [address] [place] [address] Dr. Anup Paez Erythrocyte distribution width (RBC) [Ratio] 12.9 % Normal 11.0-15.0 [facility] Comment on above: Performed By: #### C BC #### [facility] [address] [place] [address] Dr. Anup Paez Hematocrit (Bld) [Volume fraction] 44.4 % Normal 42.0-54.0 [facility] Comment on above: Performed By: #### C BC #### [facility] [address] [place] [address] Dr. Anup Paez Hemoglobin (Bld) [Mass/Vol] 14.4 g/dL Normal 14.0-18.0 [facility] Comment on above: Performed By: #### C BC #### [facility] [address] [place] [address] Dr. Anup Paez IG # 0.01 10e3/ul Normal 0.00-0.03 [facility] Comment on above: Performed By: #### C BC #### [facility] [address] [place] [address] Dr. Anup Paez IG % 0.2 % Normal 0.0-0.5 [facility] Comment on above: Performed By: #### C BC #### [facility] [address] [place] [address] Dr. Anup Paez LYMPH # 1.6 103/ul Normal 1.2-3.8 [facility] Comment on above: Performed By: #### C BC #### [facility] [address] [place] [address] Dr. Anup Paez Lymphocytes/100 WBC (Bld) 35.8 % Normal 20.5-60.0 [facility] Comment on above: Performed By: #### C BC #### [facility] [address] [place] [address] Dr. Anup Paez MANUAL DIFF REQ NO Normal [facility] Comment on above: Performed By: #### C BC #### [facility] [address] [place] [address] Dr. Anup Paez MCH (RBC) [Entitic mass] 30.1 pg Normal 25.9-34.0 [facility] Comment on above: Performed By: #### C BC #### [facility] [address] [place] [address] Dr. Anup Paez MCHC (RBC) [Mass/Vol] 32.4 g/dL Normal 29.9-35.2 [facility] Comment on above: Performed By: #### C BC #### [facility] [address] [place] [address] Dr. Anup Paez MCV (RBC) [Entitic vol] 92.7 fL Normal 80.0-94.0 [facility] Comment on above: Performed By: #### C BC #### [facility] [address] [place] [address] Dr. Anup Paez MONO # 0.5 103/ul Normal 0.3-0.8 [facility] Comment on above: Performed By: #### C BC #### [facility] [address] [place] [address] Dr. Anup Paez Monocytes/100 WBC (Bld) 11.6 % Normal 1.7-12.0 [facility] Comment on above: Performed By: #### C BC #### [facility] [address] [place] [address] Dr. Anup Paez NEUT # 2.1 103/ul Normal 1.4-6.5 [facility] Comment on above: Performed By: #### C BC #### [facility] [address] [place] [address] Dr. Anup Paez Neutrophils/100 WBC (Bld) 46.9 % Normal 43.0-75.0 [facility] Comment on above: Performed By: #### C BC #### [facility] [address] [place] [address] Dr. Anup Paez Platelet mean volume (Bld) [Entitic vol] 12.0 fL Normal 9.5-13.5 [facility] Comment on above: Performed By: #### C BC #### [facility] [address] [place] [address] Dr. Anup Paez PLT 107 103/ul Critically low 150-450 [facility] Comment on above: Performed By: #### C BC #### [facility] [address] [place] [address] Dr. Anup Paez RBC 4.79 106/ul Normal 4.70-6.10 [facility] Comment on above: Performed By: #### C BC #### [facility] [address] [place] [address] Dr. Anup Paez WBC 4.6 103/ul Normal 4.0-11.0 [facility] Comment on above: Performed By: #### C BC #### [facility] [address] [place] [address] Dr. Anup Paez LIPID PROFILEon 05-21-2022 CHOL-HDL RATIO NORM SEE BELOW Normal [facility] Comment on above: Result Comment: 3.3 - 4.4 LOW RISK 4.4 - 7.1 AVERAGE RISK 7.1 - 11.0 MODERATE RISK >11.0 HIGH RISK Performed By: #### C MP, LIPID #### [facility] [address] [address] [address] Anup Paez Cholesterol [Mass/Vol] 120 mg/dL Normal <=200 [facility] Comment on above: Performed By: #### C MP, LIPID #### [facility] [address] [address] [address] Anup Paez Cholesterol in HDL [Mass/Vol] 33 mg/dL Critically low 40-60 [facility] Comment on above: Performed By: #### C MP, LIPID #### [facility] [address] [address] [address] Anup Paez Cholesterol in LDL [Mass/Vol] 68.2 mg/dL Normal [facility] Comment on above: Performed By: #### C MP, LIPID #### [facility] [address] [address] [address] Anup Paez Cholesterol.total/Ch olesterol in HDL [Mass ratio] 3.6 {ratio} Normal [facility] Comment on above: Performed By: #### C MP, LIPID #### [facility] [address] [address] [address] Anup Paez HDL NORMAL > or = 60 mg/dl - LO W CARDIOVASCULAR RISK <40 mg/dl - HIGH CARDIOVASCULAR RISK Normal [facility] Comment on above: Performed By: #### C MP, LIPID #### [facility] [address] [address] [address] Anup Paez LDL CALC NORMAL SEE BELOW Normal [facility] Comment on above: Result Comment: <100 mg/dl OPTIMAL 100 - 129 mg/dl NEAR OR ABOVE OPTIMAL 130 - 159 mg/dl BORDERLINE HIGH 160 - 189 mg/dl HIGH >190 mg/dl VERY HIGH Performed By: #### C MP, LIPID #### [facility] [address] [address] [address] Anup Paez Triglyceride [Mass/Vol] 94 mg/dL Normal <=150 [facility] Comment on above: Performed By: #### C MP, LIPID #### [facility] [address] [place] [address] Dr. Anup Paez VLDL CALC 18.8 mg/dL Normal [facility] Comment on above: Performed By: #### C MP, LIPID #### [facility] [address] [place] [address] Dr. Anup Paez PROF 14(COMP METB)on 022 Albumin [Mass/Vol] 3.6 g/dL Normal 3.4-5.0 [facility] Comment on above: Performed By: #### C MP, LIPID #### [facility] [address] [place] [address] Dr. Anup Paez Albumin/Globulin [Mass ratio] 1.0 {ratio} Normal [facility] Comment on above: Performed By: #### C MP, LIPID #### [facility] [address] [place] [address] Dr. Anup Paez ALP [Catalytic activity/Vol] 97 U/L Normal 46-116 [facility] Comment on above: Performed By: #### C MP, LIPID #### [facility] [address] [place] [address] Dr. Anup Paez ALT [Catalytic activity/Vol] 33 U/L Normal 16-63 [facility] Comment on above: Performed By: #### C MP, LIPID #### [facility] [address] [place] [address] Dr. Anup Paez Anion gap [Moles/Vol] 11.5 mmol/L Normal [facility] Comment on above: Performed By: #### C MP, LIPID #### [facility] [address] [place] [address] Dr. Anup Paez AST [Catalytic activity/Vol] 21 U/L Normal 15-37 [facility] Comment on above: Performed By: #### C MP, LIPID #### [facility] [address] [place] [address] Dr. Anup Paez Bilirubin [Mass/Vol] 0.4 mg/dL Normal 0.2-1.0 [facility] Comment on above: Performed By: #### C MP, LIPID #### [facility] [address] [place] [address] Dr. Anup Paez Calcium [Mass/Vol] 8.5 mg/dL Normal 8.5-10.1 [facility] Comment on above: Performed By: #### C MP, LIPID #### [facility] [address] [place] [address] Dr. Anup Paez Chloride [Moles/Vol] 106 mmol/L Normal 98-107 [facility] Comment on above: Performed By: #### C MP, LIPID #### [facility] [address] [place] [address] Dr. Anup Paez CO2 [Moles/Vol] 26.3 mmol/L Normal 21.0-32.0 [facility] Comment on above: Performed By: #### C MP, LIPID #### [facility] [address] [place] [address] Dr. Anup Paez Creatinine [Mass/Vol] 1.26 mg/dL Normal 0.70-1.30 [facility] Comment on above: Performed By: #### C MP, LIPID #### [facility] [address] [place] [address] Dr. Anup Paez EGFR-AF PANAMANIAN >60 Normal >=60 [facility] Comment on above: Performed By: #### C MP, LIPID #### [facility] [address] [place] [address] Dr. Anup Paez EGFR-NON AF PANAMANIAN 57 mL/min/1.73m2 Critically low >=60 [facility] Comment on above: Performed By: #### C MP, LIPID #### [facility] [address] [place] [address] Dr. Anup Paez Globulin (S) [Mass/Vol] 3.6 g/dL Normal [facility] Comment on above: Performed By: #### C MP, LIPID #### [facility] [address] [place] [address] Dr. Anup Paez Glucose [Mass/Vol] 95 mg/dL Normal 74-106 [facility] Comment on above: Performed By: #### C MP, LIPID #### [facility] [address] [place] [address] Dr. Anup Paez Potassium [Moles/Vol] 3.8 mmol/L Normal 3.5-5.1 [facility] Comment on above: Performed By: #### C MP, LIPID #### [facility] [address] [place] [address] Dr. Anup Paez Protein [Mass/Vol] 7.2 g/dL Normal 6.4-8.2 [facility] Comment on above: Performed By: #### C MP, LIPID #### [facility] [address] [place] [address] Dr. Anup Paez Sodium [Moles/Vol] 140 mmol/L Normal 136-145 [facility] Comment on above: Performed By: #### C MP, LIPID #### [facility] [address] [place] [address] Dr. Anup Paez Urea nitrogen [Mass/Vol] 16.0 mg/dL Normal 7.0-18.0 [facility] Comment on above: Performed By: #### C MP, LIPID #### [facility] [address] [place] [address] Dr. Anup Paez Urea nitrogen/Creatinine [Mass ratio] 12.7 mg/mg Normal [facility] Comment on above: Performed By: #### C MP, LIPID #### [facility] [address] [place] [address] Dr. Anup Paez PSA Total (Not a Screen)on 0 04-01-2021 PSA Total (Not a Screen) 0.620 ng/mL Normal 0.000-4.000 [facility] Comment on above: Result Comment: PERF ORMED BY: [place] [address] PATHOLOGIST BOOKKEEPING MACHINE OPERATOR MARITZA MONTANO M.D. Performed By: #### P SATOTAL #### [place] [address] [place] XR ankle LT min 3V*on 2020 XR ankle LT min 3V* [facility] Main [place] [address] [place] [address] XRay Report Signed Patient: Maximino Clarke MR#: [id number] : 1955 Acct:[id number] Age/Sex: 65 / M ADM Date: 01/11/21 Loc: XDUCLY Room: Type: [facility] Attending Dr: Ailin PARRA Ordering [...] Dinora Brink M.D.01/11/2021 12:35 PM Dictation Location: [place] [address] Transcribed By: [facility] 01/11/21 1235 Dictated By: Dinora Brink MD 01/11/21 1234 Signed By: 01/11/21 1235 Normal [facility] Pulmonary Functionon 11-22-2 020 Pulmonary Function MR #: [id number] [facility] PT. Name: Maximino Clarke Date: [...] by: Scott Scruggs MD 08/23/2020 06:04 P ____ Scott Scruggs MD [facility] Date Dict: 08/23/2020/05:28 P/Scott Scruggs MD Date Trans: 08/23/2020 05:28 P/ DIMITRIOS_JN:[id number] cc: Asha Blandon M.D. [address] [place] [id number] Normal [facility] ARTERIAL BLOOD GAS W/COOXon 08-14-2020 BASE EXCESS 0 mmol/L Normal -2-3 [facility] Comment on above: Performed By: #### 4 0055 #### [facility] [address] [place] [address], [facility] COHB 1.2 % Normal 0.0-1.5 [facility] Comment on above: Performed By: #### 4 0055 #### [facility] [address] [place] [address], [facility] DELIVERY SYSTEMS ROOM AIR Normal [facility] Comment on above: Performed By: #### 4 0055 #### [facility] [address] [place] [address], [facility] FIO2 0 % Normal [facility] Comment on above: Performed By: #### 4 0055 #### [facility] [address] [place] [address], [facility] HCO3 (Bld) [Moles/Vol] 23 mmol/L Normal 21-28 [facility] Comment on above: Performed By: #### 4 0055 #### [facility] [address] [place] [address], [facility] METHB 1.0 % Normal 0.0-1.5 [facility] Comment on above: Performed By: #### 4 0055 #### [facility] [address] [place] [address], [facility] Oxygen (Bld) [Partial pressure] 88 mm[Hg] Normal 83-108 [facility] Comment on above: Performed By: #### 4 0055 #### [facility] [address] [place] [address], [facility] Oxygen saturation in Blood 95.5 % Normal 94.0-97.0 [facility] Comment on above: Performed By: #### 4 0055 #### [facility] [address] [place] [address], [facility] PCO2 32 mmHg Low 35-45 [facility] Comment on above: Performed By: #### 4 0055 #### [facility] [address] [place] [address], [facility] pH (Bld) 7.46 [pH] High 7.35-7.45 [facility] Comment on above: Performed By: #### 4 0055 #### [facility] [address] [place] [address], [facility] THB 12.0 g/dL Normal 12.0-16.3 [facility] Comment on above: Performed By: #### 4 0055 #### [facility] [address] Pulmonary Functionon 020 Pulmonary Function MR #: [id number] [facility] PT. Name: Maximino Clarke Date: [...] by: Scott Scruggs MD 05/23/2020 05:53 P ____ Scott Scruggs MD [facility] Sleep Medicine Date Dict: 05/23/2020/05:08 Nicole/Scott Scruggs MD Date Trans: 05/23/2020 05:08 P/ DIMITRIOS_JN:[id number] cc: Asha Blandon M.D. [address] [place] [address], [facility] A [facility] [phone] Normal [facility] ARTERIAL BLOOD GAS W/COOXon 05-11-2020 BASE EXCESS -1 mmol/L Normal -2-3 [facility] Comment on above: Performed By: #### 4 0055 #### [facility] [address] [place] [address], [place] COHB 1.5 % Normal 0.0-1.5 [facility] Comment on above: Performed By: #### 4 0055 #### [facility] [address] [place] [address], [place] DELIVERY SYSTEMS RA Normal [facility] Comment on above: Performed By: #### 4 0055 #### [facility] [address] [place] [address], [place] FIO2 0 % Normal [facility] Comment on above: Performed By: #### 4 0055 #### [facility] [address] [place] [address], [place] HCO3 (Bld) [Moles/Vol] 22 mmol/L Normal 21-28 [facility] Comment on above: Performed By: #### 4 0055 #### [facility] [address] [place] [address], [place] METHB 1.0 % Normal 0.0-1.5 [facility] Comment on above: Performed By: #### 4 0055 #### [facility] [address] [place] [address], [place] Oxygen (Bld) [Partial pressure] 95 mm[Hg] Normal 83-108 [facility] Comment on above: Performed By: #### 4 0055 #### [facility] [address] [place] [address], [place] Oxygen saturation in Blood 96.5 % Normal 94.0-97.0 [facility] Comment on above: Performed By: #### 4 0055 #### [facility] [address] [place] [address], [facility] PCO2 31 mmHg Low 35-45 [facility] Comment on above: Performed By: #### 4 0055 #### [facility] [address] pH (Bld) 7.46 [pH] High 7.35-7.45 [facility] Comment on above: Performed By: #### 4 0055 #### [facility] [address] THB 12.2 g/dL Normal 12.0-16.3 [facility] Comment on above: Performed By: #### 4 0055 #### [facility] [address] [facility]. [address] *SARS-CoV-2 COVID-19on 05-08 [id number] Not Detected Normal Not Detected [facility] Comment on above: Order Comment: The A ptima SARS-CoV-2 assay is a nucleic acid amplification test intended for the qualitative detection of RNA from SARS-CoV-2 isolated and purified from nasopharyngeal (VAMP LINER),oropharyngeal (OP), nasal swab, sputum, and bronchoalveolar lavage (BAL) specimens from patients with signs and symptoms of infection who are suspected of COVID-19. Results are for the identification of SARS-CoV-2 RNA. The SARS-CoV-2 RNA is generally detectable during the acute phase of infection. The Aptima SARS-CoV-2 Assay on the [employer] system is intended for use by laboratory personnel specifically instructed and trained in the operation of the [employer] Fusion system. The Aptima SARS-CoV-2 assay is [...] information. Performed By: #### 3 1792 #### [address] CHEST HIGH RESOLUTION WIT HOUT CONTRASTon 04-22-2020 CT CHEST HIGH RESOLUTION WITHOUT CONTRAST [facility] Department of Radiology [address] [place] [id number] Patient Name: MAXIMINO CLARKE : 1955 Sex: M Age: Race: Black Pt. Location: [facility] Patient Status: O Ordered Date: 03/20/2020 1:35:00 PM Completed Date: 04/22/2020 09:10 AM Requesting Provider: NICKY BORDEN Attending Provider: NICKY BORDEN Report Copy To: ASHA BLANDON Signs & Symptoms: J84.9 Interstitial pulmonary disease, unspecified I10 History: [employer] pc with [facility] [address] ct chest. auth#[id number] valid 03/24-06/24/2020 phone: [phone] No to all COVID questions - jlr [...] low as reasonably achievable Electronically signed: Ana Sanders. Transcribed by: [email or web address], User Resident: Electronically Signed by: ANA SANDERS @ 04/22/2020 12:42 PM Normal [facility] Comment on above: Order Comment: Brian cols: inspiratory and excpiratory films for air trapping *SARS-CoV-2 COVID-19on 03-19 [id number] Not Detected Normal Not Detected [facility] Comment on above: Order Comment: The A ptima SARS-CoV-2 assay is a nucleic acid amplification test intended for the qualitative detection of RNA from SARS-CoV-2 isolated and purified from nasopharyngeal (VAMP LINER), nasal and oropharyngeal (OP) swab specimens from patients with signs and symptoms of infection who are suspected of COVID-19. Results are for the identification of SARS-CoV-2 RNA. The SARS-CoV-2 RNA is generally detectable in nasopharyngeal and oropharyngeal swabs during the acute phase of infection. The Aptima SARS-CoV-2 Assay on the [employer] and [employer] Fusion system is intended for use by laboratory personnel specifically instructed and trained in the operation of the [employer] and [employer] Fusion system. The Aptima SARS-CoV-2 assay is [...] information. Performed By: #### 3 1792 #### [facility] [address] [facility]. [address] Pulmonary Functionon 03-10-2 020 Pulmonary Function MR #: [id number] [facility] PT. Name: Maximino Clarke Date: [...] + coving terminally( suggesting minor small airway aberration/obstruction). SPIROMETRY: The forced vital capacity is 3.73 [...] by: Wilberto Monahan M.D. 12/11/2019 03:12 P ____ Wilberto Monahan M.D. [facility] Sleep Medicine I personally reviewed the films/tests and agree with the resident's interpretation. Date Dict: 12/10/2019/12:08 Carlin/Masha Mcdermott MD Date Trans: 12/10/2019 12:08 Carlin/ DIMITRIOS_NAYELY:[id number] cc: Asha Blandon M.D. [address] [place] [phone] [facility] Vital Signs Date Time Vital Sign Value Performing Clinician Facility 12-03-2024 11:25-0500 Diastolic blood pressure 101 mm[Hg] JONNIE [facility] 12-03-2024 11:25-0500 Mean blood pressure 114 mm[Hg] JONNIE SAMEER [facility] 12-03-2024 11:25-0500 Systolic blood pressure 141 mm[Hg] JONNIE SAMEER [facility] 12-03-2024 11:16-0500 Blood Pressure Location JONNIE SAMEER [facility] 12-03-2024 11:16-0500 Diastolic blood pressure 99 mm[Hg] JONNIE SAMEER [facility] 12-03-2024 11:16-0500 Heart rate 77 /min JONNIE SAMEER [facility] 12-03-2024 11:16-0500 Respiratory rate 18 /min JONNIE SAMEER [facility] 12-03-2024 11:16-0500 Systolic blood pressure 135 mm[Hg] JONNIE SAMEER [facility] 11-28-2024 09:48-0500 Body height 172.72 cm [facility] 11-28-2024 09:48-0500 Body mass index (BMI) [Ratio] 31.4 kg/m2 [facility] 11-28-2024 09:48-0500 Body temperature 96.2 [degF] [facility] 11-28-2024 09:48-0500 Body weight 93.55 kg [facility] 11-28-2024 09:48-0500 Diastolic blood pressure 88 mm[Hg] [facility] 11-28-2024 09:48-0500 Heart rate 61 /min [facility] 11-28-2024 09:48-0500 Respiratory rate 18 /min [facility] 11-28-2024 09:48-0500 SaO2% (BldA) [Mass fraction] 95 % [facility] 11-28-2024 09:48-0500 Systolic blood pressure 134 mm[Hg] [facility] 06-13-2024 09:49-0400 Body height 172.72 cm [facility] 06-13-2024 09:49-0400 Body mass index (BMI) [Ratio] 29.6 kg/m2 [facility] 06-13-2024 09:49-0400 Body temperature 96.7 [degF] [facility] 06-13-2024 09:49-0400 Body weight 88.5 kg [facility] 06-13-2024 09:49-0400 Diastolic blood pressure 91 mm[Hg] [facility] 06-13-2024 09:49-0400 Heart rate 54 /min [facility] 06-13-2024 09:49-0400 Respiratory rate 16 /min [facility] 06-13-2024 09:49-0400 SaO2% (BldA) [Mass fraction] 98 % [facility] 06-13-2024 09:49-0400 Systolic blood pressure 132 mm[Hg] [facility] 04-25-2024 09:50-0400 Body height 172.72 cm [facility] 04-25-2024 09:50-0400 Body mass index (BMI) [Ratio] 29.8 kg/m2 [facility] 04-25-2024 09:50-0400 Body temperature 97.3 [degF] [facility] 04-25-2024 09:50-0400 Body weight 89.07 kg [facility] 04-25-2024 09:50-0400 Diastolic blood pressure 90 mm[Hg] [facility] 04-25-2024 09:50-0400 Heart rate 63 /min [facility] 04-25-2024 09:50-0400 Respiratory rate 16 /min [facility] 04-25-2024 09:50-0400 SaO2% (BldA) [Mass fraction] 96 % [facility] 04-25-2024 09:50-0400 Systolic blood pressure 132 mm[Hg] [facility] 04-24-2024 13:51-0400 Body height 172.7 cm [facility] 04-24-2024 13:51-0400 Body mass index (BMI) [Ratio] 31.93 kg/m2 [facility] 04-24-2024 13:51-0400 Body weight 95.25 kg [facility] 04-01-2024 09:23-0400 Blood Pressure Location Saenz Sarmini [facility] 04-01-2024 09:23-0400 Diastolic blood pressure 80 mm[Hg] Saenz Sarmini [facility] 04-01-2024 09:23-0400 Heart rate 86 /min Saenz Sarmini [facility] 04-01-2024 09:23-0400 Respiratory rate 18 /min Saenz Sarmini [facility] 04-01-2024 09:23-0400 Systolic blood pressure 126 mm[Hg] Saenz Sarmini [facility] 12-04-2023 08:58-0500 Blood Pressure Location Jim RUTHERFORD [facility] 12-04-2023 08:58-0500 Body temperature 98.42 [degF] Jim RUTHERFORD [facility] 12-04-2023 08:58-0500 Diastolic blood pressure 92 mm[Hg] Jim RUTHERFORD [facility] 12-04-2023 08:58-0500 Heart rate 90 /min Jim RUTHERFORD [facility] 12-04-2023 08:58-0500 Respiratory rate 17 /min Jim RUTHERFORD [facility] 12-04-2023 08:58-0500 Systolic blood pressure 155 mm[Hg] Jim RUTHERFORD [facility] 07-14-2023 13:35-0400 Diastolic blood pressure 108 mm[Hg] Mary Ellen [facility] 07-14-2023 13:35-0400 Mean blood pressure 125 mm[Hg] [facility] 07-14-2023 13:35-0400 Systolic blood pressure 158 mm[Hg] Mary Ellen [facility] 11-22-2022 15:37-0500 Blood Pressure Location Grzegorz CLAY [facility] [place] 11-22-2022 15:37-0500 Diastolic blood pressure 90 mm[Hg] Grzegorz CLAY [facility] [place] 11-22-2022 15:37-0500 Heart rate 68 /min Grzegorz CLAY [facility] 11-22-2022 15:37-0500 Respiratory rate 16 /min Grzegorz ORTIZMaría [facility] [place] 11-22-2022 15:37-0500 Systolic blood pressure 126 mm[Hg] Grzegorz ORTIZMaría [facility] Encounters Encounter Date Encounter Type Care Provider Facility Start: 12-04-2025 ambulatory JONNIE E SAMEER Facili ty:[facility] Start: 11-27-2025 ambulatory JONNIE E SAMEER Facili ty: [facility] Start: 09-18-2025 ambulatory COMM[employer]CIAL [employer] ESTATE ATTORNEY Mary Ellen L Emilee Facil ity:[facility] Start: 07-07-2025 ambulatory Saenz Talal Sarmini Facility:[facility] Start: 06-24-2025 ambulatory COMMERCIAL [employer] ESTATE ATTORNEY Mary Ellen L Emilee Facil ity:[facility] Start: 05-08-2025 End: 05-08-2025 ambulatory Saenz Talal Sarmini [facility] Start: 04-28-2025 ambulatory Birdie ANDERSEN Fa cility[facility] Start: 04-24-2025 End: 04-24-2025 ambulatory Saenz Talal Sarmini [facility] Start: 04-10-2025 End: 04-10-2025 ambulatory AB [facility] Start: 04-07-2025 End: 04-07-2025 ambulatory Saenz Talal Sarmini Facility:[facility] Start: 04-07-2025 End: 04-07-2025 Patient encounter procedure Saenz Talal Sarmini [facility] Start: 03-25-2025 End: 03-25-2025 ambulatory COMMERCIAL [employer] ESTATE ATTORNEY Mary Ellen L Emilee Facility:[facility] [place] Start: 03-20-2025 End: 03-20-2025 Lab Drop off Mary Ellen L Emilee [facility] Start: 03-20-2025 End: 03-20-2025 ambulatory COMMERCIAL [employer] ESTATE ATTORNEY Mary Ellen L Emilee Facility:[facility] Start: 12-03-2024 End: 12-03-2024 Lab Drop off JONNIE ESTRELLA [facility] Start: 12-03-2024 End: 12-03-2024 ambulatory JONNIEDL ESTRELLA Facility:[facility] Start: 12-03-2024 End: 12-03-2024 Patient encounter procedure JONNIE Amy LYONSRY [facility] Start: 11-28-2024 End: 11-28-2024 ambulatory [facility] Work Phone: Start: 11-28-2024 End: 11-28-2024 Patient encounter procedure [facility] Work Phone: Start: 11-15-2024 Non-patient / Non-visit [facility] Work Phone: Start: 11-13-2024 End: 11-13-2024 ambulatory [facility] Start: 10-07-2024 End: 10-07-2024 ambulatory Mary Ellen L Emilee Facility:[facility] Start: 06-13-2024 End: 06-13-2024 ambulatory [facility] Work Phone: Start: 06-13-2024 End: 06-13-2024 Patient encounter procedure [facility] Work Phone: Start: 05-27-2024 End: 05-28-2024 ambulatory [facility] Start: 05-02-2024 End: 05-02-2024 Evaluation and management of inpatient SHERLY BIGGS [facility] Start: 04-30-2024 End: 05-02-2024 Evaluation and management of inpatient [facility] Start: 04-25-2024 End: 04-25-2024 ambulatory [facility] Work Phone: Start: 04-25-2024 End: 04-25-2024 Patient encounter procedure [facility] Work Phone: Start: 04-24-2024 End: 04-24-2024 Evaluation and management of inpatient [facility] Start: 04-23-2024 End: 04-24-2024 Admission to [facility] Phone Call Provider 4 Rehana [facility] Start: 04-01-2024 End: 04-01-2024 ambulatory Mary Ellen L Emilee Facility:[facility] Start: 04-01-2024 End: 04-01-2024 Patient encounter procedure Saenz Ellie Connor [facility] Start: 02-07-2024 ambulatory Mary Ellen Emilee Facility:[facility] Start: 01-02-2024 End: 01-02-2024 ambulatory Mary Ellen L Emilee Facility:[facility] Start: 12-28-2023 End: 12-28-2023 ambulatory Mary Ellen L Emilee Facility:[facility] Start: 12-04-2023 End: 12-04-2023 Patient encounter procedure Jim RUTHERFORD [facility] Start: 07-14-2023 End: 07-14-2023 Lab Drop off Mary Ellen L Emilee [facility] Start: 12-28-2022 End: 12-28-2022 Patient encounter procedure Grzegorz CLAY General Surgery Nill/Said [facility] Start: 12-14-2022 End: 12-14-[address] ASHA BLANDON . Facility:[facility] Start: 11-22-2022 End: 11-22-2022 Patient encounter procedure Grzegorz CLAY General Surgery Nill/Said [facility] Start: 10-11-2022 End: 10-12-[address] ASHA BLANDON . Facility:[facility] Start: 02-24-2022 Encounter for genera l adult medical examination without abnormal findings DR ASHA BLANDON . [facility] Start: 02-19-2022 End: 02-20-[address] ASHA BLANDON . Facility:[facility] Start: 02-19-2022 End: 02-20-2022 Encounter for general adult medical examination without abnormal findings DR ASHA BLANDON . Facility: Procedures Date Procedure Procedure Detail Performing Clinician Start: 12-14-2022 Colonoscopy Grzegorz NI LL Start: 02-19-[address] ASHA FRASERT . Comment on above: Performed By: #### P [facility] #### [facility] [address] [place] [address] Dr. Anup Paez Start: 04-29-2019 Transrectal biopsy o f prostate using ultrasound guidance Grzegorz ANGELMaría Start: 07-17-2017 Cystoscopy w/UD Grzegorz ORTIZMaría Start: 04-09-2014 Cystoscopy Grzegorz NI LL Comment on above: w/green light laser of prostate Start: 09-11-2013 Colonoscopy Grzegorz NI LL Cardiac catheterization Mateus ael ANGELL Cardiac Stent Grzegorz NILL Extraction of cataract Patri ayaan RUTHERFORD Fluid Removed from Lungs Jax hael ANGELL Partial resection of colon M humphrey ORTIZL Plan of Treatment Date Care Activity Detail Author Start: 06-02-2024 Influenza vaccination Influenza Vaccine [facility] Start: 04-30-2024 End: 04-30-2024 Admission to same day surgery center 04/30/2024 11:45 AM EDT - 04/30/2024 1:09 PM EDT Surgery [facility] [address] [place] [address] Surinder Escalona MD [address] [place] [address] ESOPHAGOGASTRODUODENOSCOPY DIAGNOSTIC/ [18445 (CPT )] [facility] Comment on above: ESOPHAGOGASTRODUODENOSCOPY DIAGNOSTIC/ [ 37387 (CPT )] Start: 04-30-2024 End: 04-30-2024 Esophagogastroduodenoscopy transoral diagnostic ESOPHAGOGASTRODUODENOSCOPY DIAGNOSTIC PANCREATIC CYST, ABDOMINAL PAIN 04/30/2024 11:45 AM EDT [facility] Start: 04-30-2024 End: 04-30-2024 Esophagoscopy flexible transoral ultrasound exam ENDOSCOPIC ULTRASOUND UPPER PANCREATIC CYST, ABDOMINAL PAIN 04/30/2024 11:45 AM EDT [facility] Start: 04-30-2024 Subsequent hospital visit by physician 04/30/2024 11:45 AM EDT Hospital Encounter [facility] [address] [place] [address] Surinder Escalona MD [address] [place] [address] [facility] Start: 06-02-2023 COVID-19 Vaccine ( season) COVID-19 Vaccine ( season) [facility] Start: 2022 Fall Risk Screening Fall Risk Screening [facility] Start: 2007 Administration of varicella zoster vaccine Zoster (Shingles) Vaccine (1 of 2) [facility] Start: 01-19-1976 DTaP,Tdap and Td Vaccines (1 - Tdap) DTaP,Tdap and Td Vaccines (1 - Tdap) [email or web address] Start: 1975 Adult BMI Screening [facility] Start[facility] 1969 Depression Screening [facility] Start: 1969 Tobacco Screening [facility]ening [facility] Start: 1957 Medicare Annual Wellness Visit Medicare Annual Wellness Visi t [facility] Renal function 1999 panel - Serum or Plasma [facility] Renal function 1999 panel - Serum or Plasma [facility] Renal function 1999 panel - Serum or Plasma [facility] Immunizations Immunization Date Immunization Notes Care Provider Candelaria luna 07-08-2024 influenza virus vacc ine, unspecified formulation JONNIE ESTRELLA [facility] 07-05-2023 pneumococcal 20-jeri nt conjugate vaccine JONNIE ESTRELLA [facility] 07-05-2023 influenza virus vacc ine, unspecified formulation [facility] 06-09-2022 influenza virus vacc ine, unspecified formulation Grzegorz CLAY [facility] 09-21-2021 SARS-CoV-2 (COVID-19 ) mRNA BNT-162b2 vax Grzegorz CLAY [facility] 07-06-2021 influenza virus vacc ine, unspecified formulation JONNIE ESTRELLA [facility] 01-05-2021 SARS-CoV-2 (COVID-19 ) mRNA BNT-[id number] maurix Grzegorz CLAY [facility] 12-14-2020 SARS-CoV-2 (COVID-19 ) mRNA BNT-696p8 vax Grzegorz CLAY [facility] 08-06-2020 influenza virus vacc ine, unspecified formulation JONNIE ESTRELLA [facility] 07-01-2019 influenza virus vacc ine, unspecified formulation JONNIE ESTRELLA [facility] 07-01-2019 pneumococcal polysaccharide vaccine, 23 valent JONNIE ESTRELLA [facility] 06-27-2018 influenza virus vacc ine, unspecified formulation JONNIE ESTRELLA [facility] 08-04-2015 influenza virus vacc ine, unspecified formulation JONNIE ESTRELLA [facility] Payers Date Payer Category Payer Medicare [id number] 2024 Private Health Insurance [id number] 1959 Medicare [id number] 1959 Unknown [id number] 1959 Unknown [id number] 1957 Unknown [id number] 2.16.84 0.1.912931.3.579.2.593 1957 Unknown [id number] 2.16.84 0.1.235342.3.579.2.593 1957 Unknown [id number] 2.16.84 0.1.656633.3.579.2.593 1957 Unknown [id number] 2.16.8 40.1.218822.3.579.2.1286 1957 Unknown [id number] 2.16.8 40.1.913243.3.579.2.1286 1957 Unknown [id number] 2.16.8 40.1.005123.3.579.2.1286 1957 Unknown [id number] 2.16.8 40.1.791609.3.579.2.1285 1957 Unknown [id number] 2.16.8 40.1.909730.3.579.2.128 1957 Unknown [id number] 2.16.8 40.1.402904.3.579.2.128 1957 Unknown [id number] 2.16.8 40.1.640401.3.579.2. 1957 Unknown [id number] 2.16.8 40.1.634162.3.579.2. 1957 Unknown [id number] 2.16.8 40.1.937892.3.579.2. 1957 Unknown [id number] 2.16.8 40.1.297106.3.579.2. 1957 Unknown [id number] 2.16.8 40.1.972580.3.579.2. 1957 Unknown [id number] 2.16.8 40.1.490311.3.579.2. 1957 Unknown [id number] 2.16.8 40.1.820453.3.579.2. 1957 Unknown [id number] 2.16.8 40.1.821381.3.579.2. 1957 Unknown [id number] 2.16.8 40.1.667697.3.579.2.72 1957 Unknown [id number] 2.16.8 40.1.911498.3.579.2. 1957 Unknown [id number] 2.16.8 40.1.917973.3.579.2.72 1957 Unknown [id number] 2.16.8 40.1.960883.3.579.2.727 1957 Unknown [id number] 2.16.8 40.1.190688.3.579.2.727 1957 Unknown [id number] 2.16.8 40.1.048376.3.579.2.727 1957 Unknown [id number] 2.16.8 40.1.017189.3.579.2.727 1957 Unknown [id number] 2.16.8 40.1.935244.3.579.2.727 1957 Unknown [id number] 2.16.8 40.1.224557.3.579.2.727 1957 Unknown [id number] 2.16.8 40.1.002049.3.579.2.727 1957 Unknown [id number] 2.16.8 40.1.003807.3.579.2.727 1957 Unknown [id number] 2.16.8 40.1.328894.3.579.2.727 1957 Unknown [id number] 2.16.8 40.1.583593.3.579.2.727 Self-pay Self Pay [id number] Social History Date Type Detail Facility Start: 11-22-2022 End: 04-07-2025 Tobacco smoking status Never smoked tobacco (finding) [facility] Tobacco smoking status Never [facility] [place] Start: 09-02-2020 End: 11-04-2020 Sex Assigned At Male [facility] Start: 1955 Sex Assigned At Male [facility] Start: 04-24-2024 [facility] History of tobacco use Current smoker [facility] History of tobacco use Cigarette Smoker P [facility] History of tobacco use Cigar Smoker [facility] Start: 04-24-2024 Alcoholic beverage intake Ex-drinker (finding) [facility] Start: 09-02-2020 End: 11-04-2020 [facility] of [facility] Start: 04-24-2024 Tobacco Comment Not currently used to cigar [facility] Start: 1955 Sex assigned at Not on file P [employer] Start: 01-13-2010 End: 11-28-2024 Sex Male (finding) [facility] Sexual Orientation [facility] Functional Status Date Assessment Result Facility 12-03-2024 Functional Status N/A [facility] 04-01-2024 Functional Status N/A [facility] 12-04-2023 Functional Status N/A [facility] 11-22-2022 Functional Status N/A [facility] Clinical Notes 12-14-2022 to 04-28-2025 Pre-Procedure Instructions - Adriana Kim RN - 04/23/2024 10:00 AM EDTPre- Procedure Instructions - Adriana Kim RN - 04/23/2024 10:00 AM EDTLaboratory Note Date & Type Note Facility 04-28-2025 Note Progress Note - Nutr ition 10:45-11:45 AM Nutrition Assessment. Pt here w . Both retired from [employer] Food and Nutrition-Related History. is reporting he is drinking 2 regular cans of soda per day, various flavors. usually also consumes a sweet tea bottle when hot outside. Reporting increased thirst and increased urination. He is telling me he doesn't drink that much regular soda or sweet tea, only 1-2 cans per day. Likes Chips Ahoy cookies 3 at a time. Reporting to me he does not eat the same in the winter. usually eats warmer foods and does not grill out as much. Food and Nutrient Intake Recall: B: 9AM Banana and orange juice 1/2 cup L: 1PM Ham sandwich, villar, usually with a sweet tea. Yesterday ate a handful of Doritos. Sweet Tea to drink S: 4PM (usually larger meal) Grilled BBQ chicken wings, scalloped potatoes, and mac and cheese. Strawberries. 3 cookies Snack: 8PM Whitney Theodore and 3 cookies. Dining Out: frequently, both retired. Amadeos, Danny Mcdonald, and [facility] Food Allergy: NKFA Medication: reviewed Behavior: willing to learn Activity: around home and yard PMH: cholelithiasis, COPD, chronic fatigue, pancreatic cyst Anthropometric: Ht:69??? Wt:200.2 # Recent weight changes: none UBW: 200 range increases in winter 8-10# per pt reporting. IBW: 160 # % IBW: 129 BMI: 30.4 obese grade 1 Biochemical Data: reviewed. A1C: 6.2% 03/20/25 Fasting glucose: 146 15 min after breakfast. 1-2 Hr PPG: not checking Nutrition Status Classification: Compromise Moderate Nutrition Diagnosis: Food- and Nutrition-Related Knowledge Deficit R/T Lack of prior nutrition-related education AEB inconsistent carbohydrate timing, excess simple sugar choices, and inability to select correct carb choices. Nutrition Intervention: Comprehensive Nutrition Education Calories: REE 1695 4 wt loss: 1784kcal (0.5# per week) Protein: 75-85gm Fluid: 2200-2400ml 1. Modify calories: 1800kcal 2. Modify carbohydrate distribution: Breakfast: 60 gms, Lunch: 60-75 gms, Dinner: 60 gms, Snack: 30 gms 3. Schedule of foods: 3 meals and 1 snack. Education: Basic understanding of meal plan use in diabetes self-management. Modify carbohydrates: Reviewed a sample meal plan for the proper carbohydrate distribution/timing throughout the day. Demonstrated the proper portions of commonly consumed food items. Used food models and measuring cups to illustrate and facilitate dialog. Encouraged measurement of food items for one day of usual food if unsure of portions at home. Discussed food labels and reviewed carbohydrate portions with food choices. Modify Protein: Discussed portions of protein sources and distribution throughout the day. Reviewed low fat protein sources. Modify Fat: Reviewed fat portions discussing saturated and unsaturated fats. Provided other options for reducing fat content of commonly consumed foods. Modify Fiber: Reviewed high fiber foods Encouraged higher fiber foods at each meal. Nutrition Education: Education Materials: Provided material related to calories, carbohydrate distribution, portion sizes, and label reading topics from sources such as Academy of Nutrition and Dietetics, International Diabetes [facility], Bernice Nordisk, and [place] [employer] Diabetes Educators. Referral of Care: Recommend DSME program with RN Communication by phone, fax, or EMR from DSME staff to provider after completion of program/cessation. Chart notes will be available in EMR after 7 days of completion or cessation. Nutrition Monitoring and Evaluation: 1. Pt understanding of nutrition intervention: fair to good 2. Monitor endocrine/glucose profile w desired readings. 3. Patient to maintain weight, he does not want to lose weight. 4. Monitor motivation to change behavior to change w goal setting, self-monitoring and/or problem solving. 5. Monitor total energy intake: 1800kcal 6. Monitor willingness to try new foods: higher fiber foods 7. Instructed pt to contact RD for f/u or questions. Telephone number and email provided. 8. Goal: Food logs: Measure carbohydrate portions and document for 1 week. 9. Will follow for changes in progress and assist prn. Nutrition Assessment Comments The complete initial assessment may be deferred based on participants willingness to participate, learning barrier, or pending f/u for complete assessment. Kristin Espino, KWAN, RD, LD [facility] 04-10-2025 Note Cardiology Clinic No te Patient here for 6 mo follow up CAD, hypertension, and hyperlipidemia. Says he's felt well lately. Denies chest pain, and SOB is unchanged. HPI: Maximino Clarke is a 70 y.o. male with a past medical history [...] ROS: Review of Systems Cardiovascular: Positive for dyspnea on exertion. All other systems reviewed and are negative. Past Medical History He has a past medical history of Coronary artery disease, Heart valve disease, Hyperlipidemia, and Hypertension. Surgical History He has a [...] PRN FOR SHORTNESS OF BREATH OR WHEEZING alfuzosin (Uroxatral) 10 mg 24 hr tablet Take 10 mg by mouth in the morning. Do not crush, chew, or split. aspirin 81 mg EC tablet Take 1 tablet by mouth in the morning. carvedilol (Coreg) 6.25 mg tablet Take 1.5 tablets twice a day (Patient taking differently: Takes 1 tablet in the AM, takes 1.5 tablets in the PM) 270 tablet 3 cholecalciferol (Vitamin D-3) 25 MCG (1000 UT) capsule Take 1 capsule every day by oral route. esomeprazole (NexIUM) [address] capsule Take 40 mg by mouth in the morning. hydroCHLOROthiazide (HYDRODiuril) 25 mg tablet Take 1 tablet (25 mg) by mouth in the morning. 90 tablet 3 losartan (Cozaar) 25 mg tablet Take 1 tablet (25 mg) by mouth in the morning. 30 tablet 11 losartan (Cozaar) 50 mg tablet Take 1 tablet (50 mg) by mouth once daily as directed. 90 tablet 3 potassium chloride CR (K-Tab) 20 mEq ER tablet Take 1 tablet (20 mEq) by mouth in the morning. Do not crush, chew, or split. (Patient not taking: Reported on 11/13/2024) 5 tablet 0 rosuvastatin (Crestor) 20 mg tablet TAKE 1 TABLET(20 MG) BY MOUTH IN THE MORNING (Patient taking differently: Take 20 mg by mouth at bedtime.) 90 tablet 3 No current facility-administered medications on file prior to visit. Allergies Patient has no known allergies. Physical Exam VITAL SIGNS: BP 107/76 (BP Location: Left arm, Patient Position: Sitting) Pulse 58 Ht 1.727 m (5' 8 ) Wt 90.7 kg (200 lb) SpO2 94% BMI 30.41 kg/m??? Constitutional: Well developed, Well [...] oriented x 3, no gross focal neurological def (more content not included)... [facility] 03-10-2025 Hospital Discharge instructions Follow Up Care 03/10/2025 10:44:51 With:Connor DHALIWAL, SHANNON Lees, [facility] Address: [address] [place] [place] [address], [address] [phone] [phone] When:Within 2 Month(s) [facility] 12-03-2024 Hospital Discharge instructions Patient Education 12/03/2024 [...] urethra. Follow these instructions at home: Take extp-ngr-gidnucm and prescription medicines only as told by [...] provider. Document Revised: 04/06/2022 Document Reviewed: 04/06/2022 [employer] Patient Education 2023 [employer]. Follow Up Care 12/04/2023 09:46:17 With:SAMEER DUNHAM, JONNIE Reyes, URL Address: [address] [place] [address]. [place] [address] When:Within 1 Year(s) [facility] 12-03-2024 Note Patient Education Urology Benign Prostatic [...] Follow these instructions at home: ??? Take aoac-vbw-lpztvtc and prescription medicines only as told by [...] do not get (more content not included)... [facility] 11-13-2024 Note Cardiology Clinic No te HPI: [...] Radiology: CT chest wo IV contrast Narrative: [facility] Department of Radiology [address] [place] [id number] ======== Patient Name: MAXIMINO CLARKE (more content not included)... [facility] 05-27-2024 Note Cardiology Clinic No te Chief [...] Radiology: CT chest wo IV contrast Narrative: [facility] Department of Radiology [address] [place] [address] ======== Patient Name: MAXIMINO CLARKE : 1955 Sex: M Age: Race: Black^Black/ Pt. Location: [facility] Patient Status: O (more content not included)... [facility] 04-23-2024 Instructions Formatting of th is note might be different from the original. Your surgery/procedure is scheduled at [facility] on 04/30/2024 at 11:45 am Arrival Time 9:45 am [facility] Address: [address] [place] [address] Park in P1 Parking lot located on [facility]. Report to the Entrance B. Check in at the information desk the surgery. The waiting room located on the second floor. If you have any questions prior to surgery, please call Pre-Admission Clinic at [phone] between 7:30 am and 4:30 pm Monday through Monday. If you have questions the morning of surgery, please call the Pre-op Department at [phone]. Notify your SURGEON if you develop any [...] would like to schedule therapy at a [facility] facility, please call [phone] ([phone]). Do not use lotions, creams, powders, perfume, make up, cologne or after-shaves day of surgery. Remove ALL jewelry including wedding rings, body piercings,hair extensions that contain metal, nail congolese, make-up, and contact lens. You may brush [...] RIGHTS AND RESPONSIBILITIES As a patient at [facility], you have the right to: Receive medical care and be informed of who is taking care of you Be treated with dignity and respect Have a family member/computer help desk representative of choice and your physician notified of your admission Receive information and actively participate in decisions about your care and treatment Refuse care, treatment and services Decide who may provide your support and speak for you Access adventism and spiritual services Participate in ethical issues [...] of hospital charges and payment methods Patient/patient computer help desk representative responsibilities are to: Provide information about health status to facilitate care, treatment and services Follow the treatment, plan, keep appointments and speak up when you do not understand the plan Respect the rights of other patients and healthcare personnel Follow organizational rules and regulations that support quality care and a safe environment Fulfill financial obligations as promptly as possible [facility] 04-23-2024 Miscellaneous Notes Your surgery/procedure is scheduled at [facility] on 04/30/2024 at 11:45 am Arrival Time 9:45 am [facility] Address: [address] [place] [address] in [address]ing [address] located on [facility]. Report to the Entrance B. Check in at the information desk the surgery. The waiting room located on the second floor. If you have any questions prior to surgery, please call Pre-Admission Clinic at [phone] between 7:30 am and 4:30 pm Monday through Monday. If you have questions the morning of surgery, please call the Pre-op Department at [phone]. Notify your SURGEON if you develop any [...] would like to schedule therapy at a [facility] facility, please call [phone] ([phone]). Do not use lotions, creams, powders, perfume, make up, cologne or after-shaves day of surgery. Remove ALL jewelry including wedding rings, body piercings,hair extensions that contain metal, nail congolese, make-up, and contact lens. You may brush [...] RIGHTS AND RESPONSIBILITIES As a patient at [facility], you have the right to: Receive medical care and be informed of who is taking care of you Be treated with dignity and respect Have a family member/computer help desk representative of choice and your physician notified of your admission Receive information and actively participate in decisions about your care and treatment Refuse care, treatment and services Decide who may provide your support and speak for you Access adventism and spiritual services Participate in ethical issues [...] of hospital charges and payment methods Patient/patient computer help desk representative responsibilities are to: Provide information about [...] promptly as possible documented in this encounter [facility] 12-04-2023 Hospital Discharge instructions Patient [...] urethra. Follow these instructions at home: Take [id number] and prescription medicines only as told by [...] provider. Document Revised: 04/06/2022 Document Reviewed: 04/06/2022 [employer] Patient Education 2022 [employer]. Follow Up Care 08/29/2023 09:19:56 With:Jim RUTHERFORD MD, URL Address: [facility] [address] [place] [address]- [phone] When:Within 1 Year(s) Comments:with PSA With:Jim RUTHERFORD MD, URL Address: [facility] [address] [place] [address]- [phone] When: Unknown [facility] 12-14-2022 Note OPERATIVE NOTE OPERATION DATE: 12/14/2022 PREOPERATIVE DIAGNOSIS: Intermittent rectal bleeding. POSTOPERATIVE DIAGNOSIS: Prominent rectal veins, mild sigmoid diverticulosis as well as some nodularity at the ileocecal valve. PROCEDURE: Colonoscopy to cecum with biopsy of ileocecal valve. SURGEON: Grzegorz Clay M.D. ANESTHESIA: Monitored anesthesia care. ESTIMATED BLOOD [...] good condition. CC: Asha Blandon M.D. [facility] Evaluation + Plan note No data available for this section General Surgery [place] Evaluation + Plan note Future Appointments Appointment Date:10/13/2023 01:00:00 PM Scheduled Provider:Mary Ellen Dela Cruz Location:[facility] Appointment Type[facility] Evaluation + Plan note Future Appointments Appointment Date:12/09/2024 08:45:00 AM Scheduled Provider:Jim RUTHERFORD MD Location:[facility] Appointment Type:URO Office Visit Diagnostic Tests PendingPSA Total 12/04/23 [facility] Evaluation + Plan note Future Appointments Appointment Date:12/09/2024 08:45:00 AM Scheduled Provider:Jim RUTHERFORD MD Location:[facility] Appointment Type:URO Office Visit [facility] Evaluation + Plan note Future Appointments Appointment Date:11/27/2025 09:30:00 AM Scheduled Provider: Location:[facility] Appointment Type:URO Nurse Visit Appointment Date:12/04/2025 09:40:00 AM Scheduled Provider:JONNIE ESTRELLA PA-C Location:[facility] Appointment Type:URO Office Visit [facility] Evaluation + Plan note Future Appointments Appointment Date:04/07/2025 10:45:00 AM Scheduled Provider:Letty Ryan MD Location[facility] Appointment Type:BAD Follow Up Appointment Date:09/18/2025 09:30:00 AM Scheduled Provider: Location:[facility] Appointment Type:FM Medicare Wellness Subsequent Appointment Date:09/18/2025 10:20:00 AM Scheduled Provider:Mary Ellen Dela Cruz [facility] Type:FM Open Appointment Date:11/27/2025 09:30:00 AM Scheduled Provider: Location:[facility] Appointment Type:URO Nurse Visit Appointment Date:12/04/2025 09:40:00 AM Scheduled Provider:JONNIE ESTRELLA PA-C Location:[facility] Appointment Type:URO Office Visit [facility] Evaluation + Plan note Future Appointments Appointment Date:06/24/2025 09:40:00 AM Scheduled Provider:Mary Ellen Dela Cruz Location:[facility] Appointment Type:FM Open Appointment Date:07/07/2025 10:15:00 AM Scheduled Provider:Letty Ryan MD Location[facility] Appointment Type:BAD Follow Up Appointment Date:09/18/2025 09:30:00 AM Scheduled Provider: Location:[facility] Appointment Type: Medicare Wellness Subsequent Appointment Date:09/18/2025 10:20:00 AM Scheduled Provider:Mary Ellen Dela Cruz [facility] App[facility] Type: Open Appointment Date:11/27/2025 09:30:00 AM Scheduled Provider: Location:[facility] Appointment Type:URO Nurse Visit Appointment Date:12/04/2025 09:40:00 AM Scheduled Provider:JONNIE ESTRELLA PA-C Location:[facility] Appointment Type:URO Office Visit Future Scheduled TestsLab Miscellaneous-LC 04/07/25HCV Antibody RFX to Quant PCR 04/07/25Alpha Fetoprotein Tumor Marker 04/07/25CBC w/ Auto Diff 04/07/25Comprehensive Metabolic Panel 04/07/25Hepatitis B Surface Antibody 04/07/25Hepatitis B Surface Antigen 04/07/25PT 04/07/25 [facility] Evaluation note Diagnosis Onset Date BPH (benign prostatic hyperplasia) acute CAD (coronary artery disease) acute CKD (chronic kidney disease) stage 3, GFR 30-59 ml/min acute Hyperlipidemia acute [id number] acute Pancreatic cyst acute Secondary hyperparathyroidism acute Thrombocytopenia acute [facility] Work Phone: Evaluation note* Diagnosis Onset Date Resolution Status BPH (benign prostatic hyperplasia) acute CAD (coronary artery disease) acute CKD (chronic kidney disease) stage 3, GFR 30-59 ml/min acute Hyperlipidemia acute [id number] acute Pancreatic cyst acute Secondary hyperparathyroidism acute Thrombocytopenia acute BPH (benign prostatic hyperplasia) acute CAD (coronary artery disease) acute CKD (chronic kidney disease) stage 3, GFR 30-59 ml/min acute Hyperlipidemia acute [id number] acute Pancreatic cyst acute Secondary hyperparathyroidism acute Thrombocytopenia acute [facility] Work Phone: Evaluation note* Diagnosis Onset Date Resolution Status Admit Date BPH (benign prostatic hyperplasia) a cute November 28, 2024 9:27am CAD (coronary artery disease) acute November 28, 2024 9:27am CKD (chronic kidney disease) stage 3, GFR 30-59 ml/min acute November 9:27am Hyperlipidemia acute November 032024 9:27am Hypertensive chronic kidney disease with stage 1 through stage 4 chronic ki acute November 28, 2 025 9:27am Pancreatic cyst acute November 28, 2024 9:27am Secondary hyperparathyroidism acute November 28, 2024 9:27am Thrombocytopenia acute November 28, 2024 9:27am [facility] Work Phone: Hospital Discharge instructions No data available for this section General Surgery [place] InstructionsNot on filedocumented in this encounter [facility] SystemProgress note No data available for this section General Surgery Jazmin Reason for referral (narrative) , EUS Referred by: Connor DHALIWAL, Letty Argueta [facility] Summary Purpose Family [...] disease) stage 3, GFR 30-59 ml/min Hyperlipidemia [id number] Pancreatic cyst Secondary hyperparathyroidism Thrombocytopenia Chief Complaint Stage 3 kidney disea se RENAL 2 months Reason for Visit BPH (benign prostati c hyperplasia) CAD (coronary artery disease) CKD (chronic kidney disease) stage 3, GFR 30-59 ml/min Hyperlipidemia [id number] Pancreatic cyst Secondary hyperparathyroidism Thrombocytopenia BPH (benign prostatic hyperplasia) CAD (coronary artery disease) CKD (chronic kidney disease) stage 3, GFR 30-59 ml/min Hyperlipidemia [id number] Pancreatic cyst Secondary hyperparathyroidism Thrombocytopenia Chief Complaint [...] section and content) DATE CREATED AUTHOR 09/11/2020 [facility] DATE CREATED AUTHOR AUTHOR'S ORGANIZ ATION 11/20/2021 [facility] DATE CREATED AUTHOR AUTHOR'S ORGANIZ ATION 12/21/2022 [facility] DATE CREATED AUTHOR AUTHOR'S ORGANIZ ATION 05/05/2024 [facility] DATE CREATED AUTHOR AUTHOR'S ORGANIZ ATION 12/11/2024 [facility] DATE CREATED AUTHOR AUTHOR'S ORGANIZ ATION 03/23/2025 [facility] DATE CREATED AUTHOR AUTHOR'S ORGANIZ ATION 04/10/2025 [facility] DATE CREATED AUTHOR AUTHOR'S ORGANIZ ATION 04/14/2025 [facility] DATE CREATED AUTHOR AUTHOR'S ORGANIZ ATION 05/10/2025 [facility] DATE CREATED AUTHOR AUTHOR'S ORGANIZ ATION 05/11/2025 [facility] DATE CREATED AUTHOR AUTHOR'S ORGANIZ ATION 05/14/2025 [facility] DATE CREATED AUTHOR AUTHOR'S ORGANIZ ATION 05/17/2025 [facility] Patient Care team informatio n (unrecognized [...] BE BASED ON THE PRIMARY CLINICAL RECORDS. [facility]. provides no warranty or guarantee of the accuracy or completeness of information in this document.
[2025-06-10 12:34] LABS: Hematocrit 43.6 % (42.0-54.0); Hemoglobin 14.5 g/dL (14.0-18.0); Mean Corpuscular HGB Conc 33.3 g/dL (29.9-35.2); Mean Corpuscular Hemoglobin 30.4 pg (25.9-34.0); Mean Corpuscular Volume 91.4 fL (80.0-94.0); Platelet Count 94 10^3/uL (150-450); Red Blood Count 4.77 10^6/uL (4.70-6.10); White Blood Count 4.2 10^3/uL (4.0-11.0)
[2025-06-10 12:55] LABS: Glucose Urine UA NEGATIVE (NEGATIVE)
[2025-06-10 13:01] LABS: Cast Seen? NONE SEEN #/LPF (NONE SEEN); Crystals Seen? None Seen #/HPF (None Seen)
[2025-06-10 13:15] LABS: Protein Creatinine Ratio Urine 0.08; Total Protein Urine Random 31.2 mg/dL (<=11.9)
[2025-06-10 13:16] LABS: Albumin Level 3.4 g/dL (3.4-5.0); Anion Gap 10.9; Blood Urea Nitrogen 11.0 mg/dL (7.0-18.0); Calcium 8.6 mg/dL (8.5-10.1); Carbon Dioxide 28.4 mmol/L (21.0-32.0); Chloride 107 mmol/L (98-107); Estimated GFR (African America >60 (>=60 mL/min/1.73m^2); Estimated GFR (Non-African Ame 53 (>=60 mL/min/1.73m^2); Glucose 104 mg/dL (74-106); Magnesium 1.8 mg/dL (1.8-2.4); Potassium 3.3 mmol/L (3.5-5.1); Sodium 143 mmol/L (136-145); Uric Acid 6.0 mg/dL (3.5-7.2)
== END 2025-06-10 11:59 | disposition home or self-care (01) ==
LOC: LAB 11:59
PROVIDERS: PCP Nurse Practitioner; Visit Provider Internal Medicine
DX: N25.81 Secondary hyperparathyroidism of renal origin (principal); K86.2 Cyst of pancreas; E78.5 Hyperlipidemia, unspecified; N40.0 Benign prostatic hyperplasia without lower urinary tract symptoms; I25.10 Atherosclerotic heart disease of native coronary artery without angina pectoris; D69.6 Thrombocytopenia, unspecified
CPT/HCPCS: 36415; 80069; 81001; 82306; 82570; 83735; 83970; 84156; 84550; 85027